=== PATIENT | female | born 1970 | race Caucasian/White ===

== ENCOUNTER 2017-12-30 18:19 | Emergency (ER) | payer MEDICAID, SELFPAY ==
[2017-12-30 18:27] VITALS: BP 141/72; PULSE 93; RESP 18; TEMP 36.8; O2SAT 97; BMI 27.8
[2017-12-30 19:01] LABS: Bedside Glucose 267 mg/dL (70-110)
--- NOTE | 2017-12-30 19:35 | ED.VISSUMM ---
- ER Visit Summary Date of Service: 12/30/17 Chief Complaint: Wound check History of Present Illness: The patient is a 47 F with a history of prior stroke, TIA, diabetes, hypertension, high cholesterol, osteomyelitis, peripheral vascular disease, DVT. Patient had prior right BKA and a femoral artery stent. Patient presents today for wound check. She states that she fell on a joseph piece of metal in late November and had a puncture wound to her left buttock. She developed gangrene and had 4 surgeries. She describes 3 of these surgeries were for wound VAC changes. She was discharged from the hospital in [facility] where she was treated on December 12. Patient still has a CARMEN drain in. She reports increased redness around that site and is concerned it might be getting infected. She otherwise does not feel feverish or ill. Patient had previously been living with her [id number] in [facility] where she was receiving her medical care. She was reportedly kicked out of her [id number][place][id number]'s home and moved to an apartment here in [place]. She does not have follow-up arranged. Physical Examination: Vital signs are unremarkable. Patient is lying on her right side. She is in no acute distress. She is nontoxic appearing. Head and neck examination is unremarkable. Heart is regular rate and rhythm. Lung sounds are clear. Abdomen is soft nontender. Lower extremity examination reveals a CARMEN drain into the left buttock. There is very mild erythema at the site without sign of cellulitis or drainage. This appears more consistent with local irritation than any actual infection. She has sutures intact down the posterior left thigh. These wounds are clean with no sign of infection. Test Results: BGT is 267 Emergency Department Course and Treatment: Patient has her discharge paperwork from the hospital in [place]. She does not have any paperwork that describes what procedures she had done. The discharge paperwork gives her instructions not to sit on the flap. I spoke with Dr. Sales as well as Dr. Mata and attempt to arrange follow-up. Neither of them treat flap repairs. They suggested speaking with Dr. Guadarrama. Dr. Guadarrama is not available to discuss patients tonight as he is only to be paged for his established patients. I advised the patient that she is to call his office tomorrow to have records transferred from [place]. I also left a message with the social security benefits interviewer to the patient to get help with insurance and supplies. At this time there is no sign of infection and antibiotics are not needed. Treatment Plan: [] Disposition: Discharge Impression: Wound check without infection This note was generated with [employer] dictation software. It may contain incorrect words, spelling, and punctuation that were not noted in review of the chart prior to signing ED Disposition - Plan for ED Patient: Disposition: Home or Assisted Living Chief Complaint: Wound Check Instructions: ED Wound Check Post Op No Infec Referrals: Grzegorz Guadarrama MD [STAFF PHYSICIAN] - As soon as possible
[2017-12-30 19:45] VITALS: RESP 18
--- NOTE | 2017-12-31 12:00 | ED.RN ---
Pt called for referral to [facility] due to dr Guadarrama being booked. Dr claire reviewed chart and stated pt coudl F/u at wound center. Pt verbalized understanding and was gievn phone number to call for appt.
--- NOTE | 2018-01-03 12:00 | CASEMGMT ---
Social Work Note VM received this date from Dr. Nunez on Saturday 12/30 regarding pt needing assistance with insurance and PCP. Placed call to pt at [phone]. Pt unavailable and vm recording had no identifiers. Left vm introducing self and requested a return phone call. SW to continue to follow and assist. Mailing out resources this date. Stacy Mcfadden, FINANCIAL SERVICES SPECIALIST, ACQUISITIONS ASSISTANT
== END 2017-12-30 19:45 | disposition home or self-care (01) ==
PROVIDERS: Emergency Provider Emergency Medicine
DX: Z48.01 Encounter for change or removal of surgical wound dressing (principal); E11.9 Type 2 diabetes mellitus without complications; I10 Essential (primary) hypertension; E78.00 Pure hypercholesterolemia, unspecified; I73.9 Peripheral vascular disease, unspecified; K21.9 Gastro-esophageal reflux disease without esophagitis; Z86.718 Personal history of other venous thrombosis and embolism; Z86.73 Personal history of transient ischemic attack (TIA), and cerebral infarction without residual deficits; Z79.4 Long term (current) use of insulin; Z79.82 Long term (current) use of aspirin; Z79.01 Long term (current) use of anticoagulants; Z79.899 Other long term (current) drug therapy; Z72.0 Tobacco use
CPT/HCPCS: 82962; 99282

== ENCOUNTER 2018-01-16 22:37 | Emergency (ER) | payer MEDICAID, SELFPAY ==
[2018-01-16 22:39] VITALS: BP 123/69; PULSE 87; RESP 16; TEMP 36.7; O2SAT 99; BMI 28.5
--- NOTE | 2018-01-16 23:18 | ED.VISSUMM ---
- ER Visit Summary Date of Service: 01/16/18 Chief Complaint: Wound check History of Present Illness: The patient is a 47 F who had multiple surgeries to her left buttock and left posterior thigh in [place] in late November and early December. Patient is now being followed by Dr. Guadarrama. She wanted the wound on the posterior left thigh to be checked. There is a small area of bulging. Patient feels that the stitches are pulling and becoming more painful. She has not had any drainage. She has had no fever. Physical Examination: Vital signs are unremarkable. Patient's lying in bed no acute distress. She is nontoxic appearing. Heart is regular rate and rhythm without murmur. Lung sounds are clear. Lower extremity examination reveals a well-healed incision the left posterior thigh without sign of infection. There is a small area of fullness along the suture line without overlying erythema or fluctuance. I feel this likely represents scar tissue. Test Results: [] Emergency Department Course and Treatment: I explained to the patient and family that I see no sign of infection at this time. Because of the type of flap repair, sutures need to be removed by Dr. Guadarrama. She has an appointment with him in 3 days. Treatment Plan: [] Disposition: Discharge Impression: Wound check This note was generated with [employer] dictation software. It may contain incorrect words, spelling, and punctuation that were not noted in review of the chart prior to signing ED Disposition - Plan for ED Patient: Chief Complaint: Wound Check Referrals: Care Physician,No Primary [Primary Care Provider] -
--- NOTE | 2018-01-16 23:21 | ED.DEP ---
ED Disposition - Plan for ED Patient: Disposition: Home or Assisted Living Chief Complaint: Wound Check Instructions: ED Wound Check Post Op No Infec Referrals: Grzegorz Guadarrama MD [STAFF PHYSICIAN] - Keep Gely appointment
[2018-01-17 00:02] VITALS: PULSE 89; RESP 14; O2SAT 99
== END 2018-01-17 00:08 | disposition home or self-care (01) ==
LOC: ED 23:33
PROVIDERS: Emergency Provider Emergency Medicine
DX: Z48.01 Encounter for change or removal of surgical wound dressing (principal); I10 Essential (primary) hypertension; I73.9 Peripheral vascular disease, unspecified; E78.00 Pure hypercholesterolemia, unspecified; E11.9 Type 2 diabetes mellitus without complications; Z86.73 Personal history of transient ischemic attack (TIA), and cerebral infarction without residual deficits; Z79.4 Long term (current) use of insulin; Z79.82 Long term (current) use of aspirin; Z79.899 Other long term (current) drug therapy; Z72.0 Tobacco use
CPT/HCPCS: 99282

== ENCOUNTER 2018-01-19 11:15 | Outpatient (RCR) | payer MEDICAID, SELFPAY ==
[2018-01-06 15:45] VITALS: BP 116/69; PULSE 85; RESP 18; TEMP 36; BMI 27.0
--- NOTE | 2018-01-06 21:57 | PCM.WC.HP ---
History of Present Illness Date of Service: 01/06/18 Chief Complaint: Traumatic left ischial/perineal pressure sore, Stage IV, s/p inferior gluteal thigh fasciocutaneous flap with compromise and drainage. History of Wound: 47 year old woman presents with a postop wound in her left ischial/perineal area after an inferior gluteal thigh fasciocutaneous flap on 12/04/17. 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 The surgery was done in [place]. She has since moved to [place] and presents today for further evaluation and treatment. She still has her operative drain in place. She states there has been intermittent drainage from her perineal area. She denies any fever. Past Medical History Past Medical History: Chronic Problems Hx of right BKA (Chronic) Chronic pain (Chronic) PVD (peripheral vascular disease) (Chronic) HLD (hyperlipidemia) (Chronic) DM2 (diabetes mellitus, type 2) (Chronic) Benign essential HTN (Chronic) Past Medical History: PAST MEDICAL HISTORY. Diabetes mellitus. Hypertension. Hyperlipidemia. PAD. PVD. Angeles's gangrene left ischial/perineal area. Raynauds. Neuropathy. Anxiety. Anemia. DVT. Surgical History: no surgical history, - - right BKA. left femoral stent placement. 11/20/17 - Incision and drainage left gluteal abscess/fasciitis and extensive debridement left gluteal, perineum, and perirectal Angeles's gangrene. 11/26/17 - Laparoscopic loop sigmoid colostomy and debridement necrotizing fasciitis of perineum with VAC placement. 11/28/17 - Excisional debridement perineal wound from necrotizing fasciitis and VAC placement. 12/04/17 - Debridement of gluteal wound and pulse lavage of wound and inferior gluteal thigh fasciocutaneous flap reconstruction and complex closure of perianal wound (36 mm). Allergies/Adverse Reactions: Allergies fentanyl Allergy (Verified 01/16/18 22:42) Other morphine Adverse Reaction (Verified 01/16/18 22:42) Upset Stomach Home Medications: Ambulatory Orders Medication Instructions Recorded Aspirin [Aspirin, Baby] 81 mg PO DAILY@0800 04/26/16 Atorvastatin Calcium [Lipitor] 40 mg PO QHS 04/26/16 Baclofen 10 mg PO TID 04/26/16 Clopidogrel Bisulfate [Plavix] 75 mg PO DAILY 04/26/16 Duloxetine Hcl [Cymbalta] 60 mg PO BID 04/26/16 Insulin Aspart [Novolog Flexpen] 0 units SC TIDCM 04/26/16 Insulin Detemir [Levemir FlexPen] 40 units SC QHS 04/26/16 Pantoprazole Sodium [Protonix] 40 mg PO DAILY 04/26/16 Pregabalin [Lyrica] 150 mg PO BID 04/26/16 Ranitidine [Zantac] 150 mg PO BID 04/26/16 Clonazepam [Klonopin] 0.5 mg PO BID 07/02/16 Diclofenac Sodium [Diclofenac 50 mg PO BID 12/30/17 Sodium] Hydrocodone/Acetaminophen 1 tab PO TID 12/30/17 [Hydrocodone-Acetamin 7.5-325] Cetirizine HCl [Zyrtec] 10 mg PO DAILY 01/19/18 - Family History Maternal No pertinent history Lives: With Family Smoking Status: Current some day smoker Tobacco Use: Cigarettes Alcohol: None Review of Systems Constitutional: Reports: Fatigue. Denies: Fever, Weakness Eyes: Denies: Cataracts, Pain HEENT: Denies: Nasal Congestion, Sore Throat Cardiovascular: Denies: Chest Pain Respiratory: Reports: - - patient is a smoker.. Denies: Cough, Shortness of Breath Gastrointestinal: Denies: Constipation, Diarrhea, Nausea, Vomiting Genitourinary: Denies: Frequency, Hematuria Musculoskeletal: Denies: Arm Pain, Back Pain, Hand Pain, Leg Pain, Neck Pain Skin: Reports: Wounds - has left ischial/perineal wound at medial aspect of inferior gluteal thigh fasciocutaneous flap. There is extension of the wound both superiorly and inferiorly from her recent surgery. The wound measures 2 x 2 cm. There is undermining along the medial incision pretty much the length of the incision which was measured at 30 cm. Neurological: Denies: Headaches Psychiatric: Denies: Anxiety, Depression Endocrine: Reports: - - has diabetes mellitus.. Denies: Heat/ Cold Intolerance Hematologic/ Lymphatic: Reports: Easy Bruising - patient is on Plavix.. Denies: Hx of blood clot - Physical Exam Vital Signs Temp Pulse Resp BP 96.8 F L 85 18 116/69 01/06/18 15:45 01/06/18 15:45 01/06/18 15:45 01/06/18 15:45 General: Alert, Oriented x3 HEENT: PERRLA, EOMI Oral: Moist Mucosa Neck: Supple Lungs: Clear to auscultation Cardiovascular: Regular rate, Regular Rhythm Abdomen: Soft, Non-Distended Extremities: No clubbing, No cyanosis, No edema, Diminished Peripheral Pulses Skin: Ulcer/ Wound - left medial/perineal wound measuring 2 x 2 cm with inferior tunneling. Wound Measurements and Assessment WC - Nurse 1 - General Ulcer Measurement Start: 01/06/18 15:45 Freq: Status: Active Protocol: Activity Type Activity Date Activity User E-Sign Co-Sign Detail Recorded Client Recorded Date Recorded By Document 01/06/18 15:45 [id number] 01/06/18 16:14 01/06/18 15:45 Wound Center Nurse 1 [Ulcer Assessment] #1 Left medial simona-anal wound -Current Size (cm) - Length 0 -Current Size (cm) - Width 0 -Current Size (cm) - Depth 0 -Total Square Cm 0 -Photo Taken Yes -Epithelialization None Present -Tunneling No -Undermining/Tunneling No -Circular Undermining No -Exudate Amt Large (67-100%) -Exudate Type Serosanguineous -Foul Odor after Cleansing No [Edema Assessment] -Lower Limb Edema Present No WC - Nurse 2 - General Ulcer CM Notes Start: 01/06/18 15:45 Freq: Status: Active Protocol: Activity Type Activity Date Activity User E-Sign Co-Sign Detail Recorded Client Recorded Date Recorded By Document 01/06/18 16:47 [id number] 01/06/18 16:48 01/06/18 16:47 Wound Center Nurse 2 [Procedure/Treatment] #1 Left medial simona-anal wound -Correct Patient No -Correct Side, Site, Position No -Correct Procedure No -Procedure Performed No -Bleeding Controlled with NA [See Physician Procedure note for Specifics] Pain Scale: 0-10 Numeric [Pain] -Is Patient Pain Free? Yes Lymphatic: No Cervical, Supraclavicular, or Inguinal Adenopathy Neurological: Cranial nerves II-XII grossly intact Psych/Mental Status: Normal Affect, Appropriate Debridement Note Post-Debridement Measurements/Treatment WC - Nurse 2 - General Ulcer CM Notes Start: 01/06/18 15:45 Freq: Status: Active Protocol: Activity Type Activity Date Activity User E-Sign Co-Sign Detail Recorded Client Recorded Date Recorded By Document 01/06/18 16:47 [email or web address] [id number] 01/06/18 16:48 SHAYNA 01/06/18 16:47 Wound Center Nurse 2 #1 Left medial simona-anal wound -Correct Patient No -Correct Side, Site, Position No -Correct Procedure No -Procedure Performed No -Bleeding Controlled with NA Pain Scale: 0-10 Numeric Is Patient Pain Free? Yes Wound debrided: #1 Left ischial/perineal. Laterality: Left Wound Grade/Stage: 3. No debridement was completed today - this is a postop flap wound from 11/23 secondary to Angeles's gangrene. Assessment/Plan Active Problems Pressure sore of left ischium, stage 4 (Acute) Type 2 diabetes mellitus with other skin ulcer (Acute) Skin flap infection (Acute) left posterior thigh flap Nonhealing surgical wound (Acute) left ischial/perineal area and posterior thigh. Assessment: 1. 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 3. s/p multiple debridements and VAC placement and inferior gluteal thigh fasciocutaneous flap. 4 Compromised flap with drainage. 5. Diabetes mellitus. Plan: Begin daily dressing changes with Aquacel Silver. The surgical drain was removed today. It has been in for almost 5 weeks. Will remove the sutures in next 1-2 weeks. Her Hgb A1c was 11.0 in November. Will need to improve that before considering any complex flap revision reconstruction. She recently moved from [place] where this surgery was done. She has no primary MD and will try to establish one. Will give her some names to call. A wound culture was obtained today. A positive culture will necessitate antibiotic therapy. Her Prealbumin in November was 16. Encourage nutritional supplementation with protein to help the healing process. She states she was not on bedrest for very long as ambulation was encouraged. I anticipate seroma formation. Operative debridement and revision will be necessary. Postop will apply the VAC. After medical issues have stabilized and nutrition has been maximized, will consider operative flap revision reconstruction based on the size of the wound. Muscle flaps and skin grafts may be necessary. If there is bone involved at the time of the debridement, then a partial ostectomy will be done for osteomyelitis. Before the debridement, will obtain a CT Pelvis and CT Thigh. Will like to obtain the old records before taking her to surgery in the future. Patient was informed of the risks and complications of the procedure including alternatives to surgery. These were discussed with her personally. She voices understanding and wishes to proceed with the current plan of wound care and nutrition and probable antibiotics in preparation for operative debridement to stabilize the wound before proceeding with flap revision reconstruction.
--- NOTE | 2018-01-06 23:34 | HP.PCM_ITS ---
History of Present Illness Date of Service: 01/06/18 Chief Complaint: Traumatic left ischial/perineal pressure sore, Stage IV, s/p inferior gluteal thigh fasciocutaneous flap with compromise and drainage. History of Wound: 47 year old woman presents with a postop wound in her left ischial/perineal area after an inferior gluteal thigh fasciocutaneous flap on . 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 The surgery was done in [place]. She has since moved to [place] and presents today for further evaluation and treatment. She still has her operative drain in place. She states there has been intermittent drainage from her perineal area. She denies any fever. Past Medical History Past Medical History: Chronic Problems Hx of right BKA (Chronic) Chronic pain (Chronic) PVD (peripheral vascular disease) (Chronic) HLD (hyperlipidemia) (Chronic) DM2 (diabetes mellitus, type 2) (Chronic) Benign essential HTN (Chronic) Past Medical History: PAST MEDICAL HISTORY. Diabetes mellitus. Hypertension. Hyperlipidemia. PAD. PVD. Angeles's gangrene left ischial/perineal area. Raynauds. Neuropathy. Anxiety. Anemia. DVT. Surgical History: no surgical history, - - right BKA. left femoral stent placement. 11/20/17 - Incision and drainage left gluteal abscess/fasciitis and extensive debridement left gluteal, perineum, and perirectal Angeles's gangrene. 11/26/17 - Laparoscopic loop sigmoid colostomy and debridement necrotizing fasciitis of perineum with VAC placement. 11/28/17 - Excisional debridement perineal wound from necrotizing fasciitis and VAC placement. - Debridement of gluteal wound and pulse lavage of wound and inferior gluteal thigh fasciocutaneous flap reconstruction and complex closure of perianal wound (36 mm). Allergies/Adverse Reactions: Allergies fentanyl Allergy (Verified 01/16/18 22:42) Other morphine Adverse Reaction (Verified 01/16/18 22:42) Upset Stomach Home Medications: Ambulatory Orders Medication Instructions Recorded Aspirin [Aspirin, Baby] 81 mg PO DAILY@0800 04/26/16 Atorvastatin Calcium [Lipitor] 40 mg PO QHS 04/26/16 Baclofen 10 mg PO TID 04/26/16 Clopidogrel Bisulfate [Plavix] 75 mg PO DAILY 04/26/16 Duloxetine Hcl [Cymbalta] 60 mg PO BID 04/26/16 Insulin Aspart [Novolog Flexpen] 0 units SC TIDCM 04/26/16 Insulin Detemir [Levemir FlexPen] 40 units SC QHS 04/26/16 Pantoprazole Sodium [Protonix] 40 mg PO DAILY 04/26/16 Pregabalin [Lyrica] 150 mg PO BID 04/26/16 Ranitidine [Zantac] 150 mg PO BID 04/26/16 Clonazepam [Klonopin] 0.5 mg PO BID 07/02/16 Diclofenac Sodium [Diclofenac 50 mg PO BID 12/30/17 Sodium] Hydrocodone/Acetaminophen 1 tab PO TID 12/30/17 [Hydrocodone-Acetamin 7.5-325] Cetirizine HCl [Zyrtec] 10 mg PO DAILY 01/19/18 - Family History Maternal No pertinent history Lives: With Family Smoking Status: Current some day smoker Tobacco Use: Cigarettes Alcohol: None Review of Systems Constitutional: Reports: Fatigue. Denies: Fever, Weakness Eyes: Denies: Cataracts, Pain HEENT: Denies: Nasal Congestion, Sore Throat Cardiovascular: Denies: Chest Pain Respiratory: Reports: - - patient is a smoker.. Denies: Cough, Shortness of Breath Gastrointestinal: Denies: Constipation, Diarrhea, Nausea, Vomiting Genitourinary: Denies: Frequency, Hematuria Musculoskeletal: Denies: Arm Pain, Back Pain, Hand Pain, Leg Pain, Neck Pain Skin: Reports: Wounds - has left ischial/perineal wound at medial aspect of inferior gluteal thigh fasciocutaneous flap. There is extension of the wound both superiorly and inferiorly from her recent surgery. The wound measures 2 x 2 cm. There is undermining along the medial incision pretty much the length of the incision which was measured at 30 cm. Neurological: Denies: Headaches Psychiatric: Denies: Anxiety, Depression Endocrine: Reports: - - has diabetes mellitus.. Denies: Heat/ Cold Intolerance Hematologic/ Lymphatic: Reports: Easy Bruising - patient is on Plavix.. Denies : Hx of blood clot - Physical Exam Vital Signs Temp Pulse Resp BP 96.8 F L 85 18 116/69 01/06/18 15:45 01/06/18 15:45 01/06/18 15:45 01/06/18 15:45 General: Alert, Oriented x3 HEENT: PERRLA, EOMI Oral: Moist Mucosa Neck: Supple Lungs: Clear to auscultation Cardiovascular: Regular rate, Regular Rhythm Abdomen: Soft, Non-Distended Extremities: No clubbing, No cyanosis, No edema, Diminished Peripheral Pulses Skin: Ulcer/ Wound - left medial/perineal wound measuring 2 x 2 cm with inferior tunneling. Wound Measurements and Assessment WC - Nurse 1 - General Ulcer Measurement Start: 01/06/18 15:45 Freq: Status: Active Protocol: Activity Type Activity Date Activity User E-Sign Co-Sign Detail Recorded Client Recorded Date Recorded By Document 01/06/18 15:45 [id number] 01/06/18 16:14 01/06/18 15:45 Wound Center Nurse 1 [Ulcer Assessment] #1 Left medial simona-anal wound -Current Size (cm) - Length 0 -Current Size (cm) - Width 0 -Current Size (cm) - Depth 0 -Total Square Cm 0 -Photo Taken Yes -Epithelialization None Present -Tunneling No -Undermining/Tunneling No -Circular Undermining No -Exudate Amt Large (67-100%) -Exudate Type Serosanguineous -Foul Odor after Cleansing No [Edema Assessment] -Lower Limb Edema Present No WC - Nurse 2 - General Ulcer CM Notes Start: 01/06/18 15:45 Freq: Status: Active Protocol: Activity Type Activity Date Activity User E-Sign Co-Sign Detail Recorded Client Recorded Date Recorded By Document 01/06/18 16:47 [id number] 01/06/18 16:48 01/06/18 16:47 Wound Center Nurse 2 [Procedure/Treatment] #1 Left medial simona-anal wound -Correct Patient No -Correct Side, Site, Position No -Correct Procedure No -Procedure Performed No -Bleeding Controlled with NA [See Physician Procedure note for Specifics] Pain Scale: 0-10 Numeric [Pain] -Is Patient Pain Free? Yes Lymphatic: No Cervical, Supraclavicular, or Inguinal Adenopathy Neurological: Cranial nerves II-XII grossly intact Psych/Mental Status: Normal Affect, Appropriate Debridement Note Post-Debridement Measurements/Treatment WC - Nurse 2 - General Ulcer CM Notes Start: 01/06/18 15:45 Freq: Status: Active Protocol: Activity Type Activity Date Activity User E-Sign Co-Sign Detail Recorded Client Recorded Date Recorded By Document 01/06/18 16:47 [email or web address] [id number] 01/06/18 16:48 [email or web address] 01/06/18 16:47 Wound Center Nurse 2 #1 Left medial simona-anal wound -Correct Patient No -Correct Side, Site, Position No -Correct Procedure No -Procedure Performed No -Bleeding Controlled with NA Pain Scale: 0-10 Numeric Is Patient Pain Free? Yes Wound debrided: #1 Left ischial/perineal. Laterality: Left Wound Grade/Stage: 3. No debridement was completed today - this is a postop flap wound from 11/23 secondary to Angeles's gangrene. Assessment/Plan Active Problems Pressure sore of left ischium, stage 4 (Acute) Type 2 diabetes mellitus with other skin ulcer (Acute) Skin flap infection (Acute) left posterior thigh flap Nonhealing surgical wound (Acute) left ischial/perineal area and posterior thigh. Assessment: 1. 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 3. s/p multiple debridements and VAC placement and inferior gluteal thigh fasciocutaneous flap. 4 Compromised flap with drainage. 5. Diabetes mellitus. Plan: Begin daily dressing changes with Aquacel Silver. The surgical drain was removed today. It has been in for almost 5 weeks. Will remove the sutures in next 1-2 weeks. Her Hgb A1c was 11.0 in November. Will need to improve that before considering any complex flap revision reconstruction. She recently moved from [place] where this surgery was done. She has no primary MD and will try to establish one. Will give her some names to call. A wound culture was obtained today. A positive culture will necessitate antibiotic therapy. Her Prealbumin in November was 16. Encourage nutritional supplementation with protein to help the healing process. She states she was not on bedrest for very long as ambulation was encouraged. I anticipate seroma formation. Operative debridement and revision will be necessary. Postop will apply the VAC. After medical issues have stabilized and nutrition has been maximized, will consider operative flap revision reconstruction based on the size of the wound. Muscle flaps and skin grafts may be necessary. If there is bone involved at the time of the debridement, then a partial ostectomy will be done for osteomyelitis. Before the debridement, will obtain a CT Pelvis and CT Thigh. Will like to obtain the old records before taking her to surgery in the future. Patient was informed of the risks and complications of the procedure including alternatives to surgery. These were discussed with her personally. She voices understanding and wishes to proceed with the current plan of wound care and nutrition and probable antibiotics in preparation for operative debridement to stabilize the wound before proceeding with flap revision reconstruction.
[2018-01-19 11:33] VITALS: BP 125/84; PULSE 90; RESP 16; TEMP 37; BMI 27.0
--- NOTE | 2018-01-19 17:01 | PN.PCM_ITS ---
Type of Wound Date of Service: 01/19/18 Chief Complaint: Traumatic left ischial/perineal pressure sore, Stage IV, s/p inferior gluteal thigh fasciocutaneous flap with compromise and drainage. History of Wound: 47 year old woman comes in for further evaluation of her postop wound in her left ischial/perineal area after an inferior gluteal thigh fasciocutaneous flap on 12/04/17. 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 The surgery was done in [place]. She has since moved to [place] and presents today for further evaluation and treatment. Her wound culture from 01/06/18 showed Staphylococcus aureus and Anaerobes. She was started on Doxycycline and Flagyl will be added. She states there has been intermittent drainage from her perineal area and she has been changing the silver dressings more than once per day. She denies any fever. Progress of Wound: The left ischial/perineal wound is stable but there is some fluctuance noted on the inferior aspect of the incision on her posterior thigh. - Physical Exam Vital Signs Temp Pulse Resp BP 98.6 F 90 16 125/84 H 01/19/18 11:33 01/19/18 11:33 01/19/18 11:33 01/19/18 11:33 General: Alert, Oriented x3 HEENT: PERRLA, EOMI Neck: Supple Lungs: Clear to auscultation Cardiovascular: Regular rate, Regular Rhythm Abdomen: Soft, Non-Distended Extremities: No clubbing, No cyanosis, Edema - mild edema in left lower extremity. Skin: Ulcer/ Wound - left ischial/perineal wound is stable. However there are new wounds on the inferior incision line on the posterior thigh with exudative drainage. Wound Measurements and Assessment WC - Nurse 1 - General Ulcer Measurement Start: 01/06/18 15:45 Freq: Status: Active Protocol: Activity Type Activity Date Activity User E-Sign Co-Sign Detail Recorded Client Recorded Date Recorded By Document 01/19/18 11:33 [facility] [id number] 01/19/18 11:47 [facility] 01/19/18 11:33 Wound Center Nurse 1 [Ulcer Assessment] #1 Left medial simona-anal wound -Combined with other wound No -Current Size (cm) - Length 1.1 -Current Size (cm) - Width 1 -Current Size (cm) - Depth 1.4 -Total Square Cm 1.1 -Photo Taken No -Epithelialization None Present -Tunneling Yes -Tunneling Position (O'clock) 5 -Tunneling Distance (cm) 5 -Tunneling Position #2 (O'clock) 11 -Tunneling Distance #2 (cm) 3 -Undermining/Tunneling No -Circular Undermining No -Exudate Amt Large (67-100%) -Exudate Type Serous -Wound Margin Distinct, Outline Attached -Granulation Amt Large (67-100%) -Granulation Quality [place] -Slough/Fibrin No -Necrosis Amt None Present (0 %) -Texture (Simona-wound Skin Appearance) Scarring -Moisture (Simona-wound Skin Appearance Assessed ) -Color (Simona-wound Skin Appearance) Assessed -Temperature (Simona-wound Skin No Abnormality Appearance) (Pt Warm) -Tenderness on Palpation (Simona-wound No Skin Appearance) -Ulcer Cleansing Rinsed/ Irrigated with Saline -Foul Odor after Cleansing No -Anesthetic Used 4% Lidocaine Solution - Nurse 2 - General Ulcer CM Notes Start: 01/06/18 15:45 Freq: Status: Active Protocol: Activity Type Activity Date Activity User E-Sign Co-Sign Detail Recorded Client Recorded Date Recorded By Document 01/19/18 12:11 [id number] 01/19/18 12:13 01/19/18 12:11 Wound Center Nurse 2 [Procedure/Treatment] -Correct Patient No -Correct Side, Site, Position No -Correct Procedure No -Procedure Performed No -Bleeding Controlled with NA [See Physician Procedure note for Specifics] Pain Scale: 0-10 Numeric [Pain] -Is Patient Pain Free? Yes Lymphatic: No Cervical, Supraclavicular, or Inguinal Adenopathy Neurological: Cranial nerves II-XII grossly intact Psych/Mental Status: Normal Affect, Appropriate Debridement Note Post-Debridement Measurements/Treatment - Nurse 2 - General Ulcer CM Notes Start: 01/06/18 15:45 Freq: Status: Active Protocol: Activity Type Activity Date Activity User E-Sign Co-Sign Detail Recorded Client Recorded Date Recorded By Document 01/06/18 16:47 [id number] 01/06/18 16:48 Document 01/19/18 12:11 [id number] 01/19/18 12:13 01/06/18 01/19/18 16:47 12:11 Wound Center Nurse 2 #1 Left medial simona-anal wound -Correct Patient No No -Correct Side, Site, Position No No -Correct Procedure No No -Procedure Performed No No -Bleeding Controlled with NA NA Pain Scale: 0-10 Numeric Is Patient Pain Free? Yes Yes Wound debrided: #1 Left ischial/perineal area with inferior thigh extension. Laterality: Left Wound Grade/Stage: 3. No debridement was completed today - The sutures were removed today. There was some fluctuance in an area of the inferior incision on the posterior thigh. Probing with a cotton tipped applicator released some thickened exudate and serosanguinous fluid. No odor. With the previous culture showing Staphylococcus aureus, admission was recommended for more aggressive wound care and IV antibiotics. Assessment/Plan Active Problems Pressure sore of left ischium, stage 4 (Acute) Type 2 diabetes mellitus with other skin ulcer (Acute) Skin flap infection (Acute) left posterior thigh flap Nonhealing surgical wound (Acute) left ischial/perineal area and posterior thigh. Assessment: 1. Traumatic left ischial/perineal pressure sore infection, Stage IV. 2. Angeles's gangrene left ischial/perineal area. 3. s/p multiple debridements and VAC placement and inferior gluteal thigh fasciocutaneous flap. 4 Compromised flap medially and inferiorly with infected drainage. 5. Diabetes mellitus. Plan: The sutures were removed today. The wound shows instability with multiple openings. Recommend admission to the hospital for more aggressive wound care and to start IV antibiotics. Previous culture showed Staphylococcus aureus and Anaerobes. Will start Vancomycin and Zosyn. Continue dressing changes with Aquacel Silver. Her Hgb A1c was 11.0 in November. Will need to improve that before considering any complex flap revision reconstruction. She recently moved from [place] where this surgery was done. She has no primary MD and will try to establish one. Will give her some names to call. Her Prealbumin in November was 16. Encourage nutritional supplementation with protein to help the healing process. Will obtain a CT Pelvis and CT Thigh to lookf for further evidence of infection. Operative debridement may be necessary. Postop will apply the VAC. After medical issues have stabilized and nutrition has been maximized, will consider operative flap revision reconstruction based on the size of the wound. Muscle flaps and skin grafts may be necessary. If there is bone involved at the time of the debridement, then a partial ostectomy will be done for osteomyelitis. Patient was informed of the risks and complications of the procedure including alternatives to surgery. These were discussed with her personally. She voices understanding and wishes to proceed with the current plan of wound care and nutrition and probable antibiotics in preparation for possible operative debridement to stabilize the wound before proceeding with flap revision reconstruction.
== END 2018-02-05 23:59 ==
LOC: WC 11:15
PROVIDERS: Visit Provider Surgery
DX: E11.622 Type 2 diabetes mellitus with other skin ulcer (principal); L89.224 Pressure ulcer of left hip, stage 4; T81.4XXA Infection following a procedure, initial encounter; B99.8 Other infectious disease; Y83.8 Other surgical procedures as the cause of abnormal reaction of the patient, or of later complication, without mention of misadventure at the time of the procedure; T86.828 Other complications of skin graft (allograft) (autograft); E11.51 Type 2 diabetes mellitus with diabetic peripheral angiopathy without gangrene; I10 Essential (primary) hypertension; E78.5 Hyperlipidemia, unspecified; E11.40 Type 2 diabetes mellitus with diabetic neuropathy, unspecified; Z79.899 Other long term (current) drug therapy; Z79.02 Long term (current) use of antithrombotics/antiplatelets; Z79.82 Long term (current) use of aspirin; Z79.4 Long term (current) use of insulin; F17.210 Nicotine dependence, cigarettes, uncomplicated
CPT/HCPCS: 87070; 87075; 87077; 87186; 87205; 99213; G0463

== ENCOUNTER 2018-01-19 15:45 | Inpatient (IN) | payer MEDICAID, SELFPAY ==
[2018-01-19 15:55] VITALS: BMI 27.2; BMI 27.3
[2018-01-19 15:56] VITALS: BP 118/69; PULSE 73; RESP 18; TEMP 36.8; O2SAT 100
[2018-01-19 16:37] VITALS: PULSE 70
[2018-01-19 17:08] VITALS: BMI 27.3
--- NOTE | 2018-01-19 19:16 | CT_ITS ---
CT Pelvis and left lower extremity W/O Contrast INDICATION: ABSCESS,POST-OP INFECTED WOUND TO LT ISCHIAL/PERINEAL AND POSTERIOR THIGH,SCHEDULING FOR DEBRIDEMENTHX:DM,PVD,OSTEOMYELITIS COMPARISON: None TECHNIQUE: Noncontrast axial CT examination of the pelvis and left leg from the hip to the knee without contrast. Coronal and sagittal reformatted images. Radiation dose optimization technique applied. FINDINGS: Arteriosclerotic disease is present and bilateral common iliac artery stent grafts are present. Evaluation of the vascular structures is markedly limited and evaluation of the soft tissues is somewhat limited due to the lack of IV contrast. A left lower quadrant colostomy is noted. There is evidence of scarring in the left upper thigh with fat stranding of the left perirectal fat and the fat of the left medial lower buttocks. If this inflammatory process extends or communicates with the rectum is not clearly seen. An air-containing fistulous tract to the rectum or vaginal canal cannot be identified with certainty. There is a linear scar in the posterior medial aspect of the left upper thigh extending to the level just above the knee. 2 surgical clips are seen in the midportion of the scar. Air inclusions are seen along the scar in the subcutaneous fat in the upper thigh and extending deep to the fascia distally. A significantly large distinct drainable fluid collection is not identified with certainty, however, multiple small air collections are seen as detailed above. Subcutaneous fat stranding is most severe at the left lower buttocks and extends to the gluteal musculature. No evidence of bony erosions to raise concern for osteomyelitis at this time. Consider nuclear medicine bone scan for confirmation. CT/Pelvis without IV Contrast IMPRESSION: Air inclusions along the scar and in the adjacent subcutaneous fat extending from the left lower buttocks along the left posterior medial thigh to the level just above the knee as detailed above. Multiple small air collections are seen and subcutaneous fat stranding along the scar, most severe at the left medial buttocks, with the inflammation/infection extends beyond the fascia into the left gluteal musculature. Additional small focus of extension deep to the fascia is noted just above the knee. at 2042 Reported and signed by: Kathie Hernandez MD Electronically Signed: Kathie Hernandez MD at 20:41 EDT Tel , Service support ,
--- NOTE | 2018-01-19 19:16 | CT_ITS ---
CT Pelvis and left lower extremity W/O Contrast INDICATION: ABSCESS,POST-OP INFECTED WOUND TO LT ISCHIAL/PERINEAL AND POSTERIOR THIGH,SCHEDULING FOR DEBRIDEMENTHX:DM,PVD,OSTEOMYELITIS COMPARISON: None TECHNIQUE: Noncontrast axial CT examination of the pelvis and left leg from the hip to the knee without contrast. Coronal and sagittal reformatted images. Radiation dose optimization technique applied. FINDINGS: Arteriosclerotic disease is present and bilateral common iliac artery stent grafts are present. Evaluation of the vascular structures is markedly limited and evaluation of the soft tissues is somewhat limited due to the lack of IV contrast. A left lower quadrant colostomy is noted. There is evidence of scarring in the left upper thigh with fat stranding of the left perirectal fat and the fat of the left medial lower buttocks. If this inflammatory process extends or communicates with the rectum is not clearly seen. An air-containing fistulous tract to the rectum or vaginal canal cannot be identified with certainty. There is a linear scar in the posterior medial aspect of the left upper thigh extending to the level just above the knee. 2 surgical clips are seen in the midportion of the scar. Air inclusions are seen along the scar in the subcutaneous fat in the upper thigh and extending deep to the fascia distally. A significantly large distinct drainable fluid collection is not identified with certainty, however, multiple small air collections are seen as detailed above. Subcutaneous fat stranding is most severe at the left lower buttocks and extends to the gluteal musculature. No evidence of bony erosions to raise concern for osteomyelitis at this time. Consider nuclear medicine bone scan for confirmation. CT/Extremity Lower without Contra IMPRESSION: Air inclusions along the scar and in the adjacent subcutaneous fat extending from the left lower buttocks along the left posterior medial thigh to the level just above the knee as detailed above. Multiple small air collections are seen and subcutaneous fat stranding along the scar, most severe at the left medial buttocks, with the inflammation/infection extends beyond the fascia into the left gluteal musculature. Additional small focus of extension deep to the fascia is noted just above the knee. at 2042 Reported and signed by: Kathie Hernandez MD Electronically Signed: Kathie Hernandez MD at 20:40 EDT Tel , Service support ,
--- NOTE | 2018-01-19 19:49 | PCM.CONS.GEN ---
Problem List (1) Pressure sore of left ischium, stage 4 Status: Chronic (2) Type 2 diabetes mellitus with other skin ulcer Status: Chronic (3) Skin flap infection Status: Acute Comment: left posterior thigh flap (4) Nonhealing surgical wound Status: Chronic Comment: left ischial/perineal area and posterior thigh. (5) Hx of right BKA Status: Chronic (6) Chronic pain Status: Chronic (7) PVD (peripheral vascular disease) Status: Chronic (8) HLD (hyperlipidemia) Status: Chronic (9) DM2 (diabetes mellitus, type 2) Status: Chronic (10) Benign essential HTN Status: Chronic Reason for Consult Date of Consultation: 01/19/18 Reason for Consultation: Requested by Dr. Guadarrama for medical management History of Present Illness: The patient is a 47 year old F who in December fell on a joseph microwave. Patient felt sick for a week which she thought was the flu only to find out that she had gangrene and required multiple debridements and wound VAC. Patient has since moved up here and has seen Dr. martinez. She had a culture performed on January 06 that showed staph aureus and Prevotella oralis. She did receive an antibiotic but the wounds have continued to seep. Patient has had some abscesses. Patient was admitted for further surgical debridement. Patient is scheduled for CAT scan this evening for further clarification. [] Past Medical History Past Medical History (Chronic Problems): Chronic Problems Pressure sore of left ischium, stage 4 (Chronic) Type 2 diabetes mellitus with other skin ulcer (Chronic) Nonhealing surgical wound (Chronic) left ischial/perineal area and posterior thigh. Hx of right BKA (Chronic) Chronic pain (Chronic) PVD (peripheral vascular disease) (Chronic) HLD (hyperlipidemia) (Chronic) DM2 (diabetes mellitus, type 2) (Chronic) Benign essential HTN (Chronic) Allergies fentanyl Allergy (Verified 01/16/18 22:42) Other morphine Adverse Reaction (Verified 01/16/18 22:42) Upset Stomach Home Medications: Ambulatory Orders Medication Instructions Recorded Aspirin [Aspirin, Baby] 81 mg PO DAILY@0800 04/26/16 Atorvastatin Calcium [Lipitor] 40 mg PO QHS 04/26/16 Baclofen 10 mg PO TID 04/26/16 Clopidogrel Bisulfate [Plavix] 75 mg PO DAILY 08/19/16 Duloxetine Hcl [Cymbalta] 60 mg PO BID 04/26/16 Insulin Aspart [Novolog Flexpen] 0 units SC TIDCM 04/26/16 Insulin Detemir [Levemir FlexPen] 40 units SC QHS 04/26/16 Pantoprazole Sodium [Protonix] 40 mg PO DAILY 04/26/16 Pregabalin [Lyrica] 150 mg PO BID 04/26/16 Ranitidine [Zantac] 150 mg PO BID 04/26/16 Clonazepam [Klonopin] 0.5 mg PO BID 07/02/16 Diclofenac Sodium [Diclofenac 50 mg PO BID 12/30/17 Sodium] Hydrocodone/Acetaminophen 1 tab PO TID 12/30/17 [Hydrocodone-Acetamin 7.5-325] Cetirizine HCl [Zyrtec] 10 mg PO DAILY 01/19/18 Surgical History: - - right BKA. Multiple debridements to left leg wound. Diverting colostomy. Psychiatric History: No pertinent psych hx Lives: Spouse/ Significant Other Smoking Status: Heavy Smoker (>10/day) Tobacco Use: Cigarettes Alcohol: None Drugs: None - *Family History Maternal History Items: Diabetes Review of Systems Constitutional: Reports: Chills. Denies: Fever, Weight Change Eyes: Denies: Blurred vision, Double vision HEENT: Denies: Head Aches, Sinus Congestion, Sinus Drainage Cardiovascular: Denies: Chest Pain, Palpitations Respiratory: Denies: Cough, Shortness of breath at rest, Sputum production Gastrointestinal: Denies: Abdominal Pain, Nausea, Vomiting Genitourinary: Denies: Dysuria Gynecological: Denies: Breast symptoms, Sexual concerns Musculoskeletal: Reports: Leg Pain. Denies: Joint Pain, Joint Tenderness Skin: Denies: Dryness, Lesions Neurological: Denies: Numbness, Tingling, Focal weakness Psychiatric: Denies: Anxiety, Depression Hematologic/ Lymphatic: Denies: Easy Bruising, Easy Bleeding Patient Problems: Active and Suspected Problems Skin flap infection (Acute) left posterior thigh flap - Physical Exam General: Alert, Cooperative, No apparent distress, - - Appears older than stated age HEENT: Atraumatic, Normocephalic Oral: Moist Mucosa, No Gingival or Mucosal Lesions/ Ulcerations Neck: No Nodes, Thyroid Normal Size and Texture Lungs: Clear to auscultation, Normal air movement, No rhonchi, No wheeze Cardiovascular: Regular rate, Regular Rhythm, Normal S1, Normal S2, No murmurs Abdomen: Bowel Sounds Present, Soft, Non Tender, Non-Distended, - - Colostomy in place Extremities: No edema, - - Right BKA. Stump site appears clean and intact. Left leg bandaged, did not remove. Psych/Mental Status: Appropriate, Flat Affect Vital Signs Temp Pulse Resp BP Pulse Ox 36.8 C 70 18 118/69 100 01/19/18 15:56 01/19/18 16:37 01/19/18 15:56 01/19/18 15:56 01/19/18 15:56 Oxygen Delivery Method Room Air Weight: 81.374 kg Body Mass Index (BMI) 27.2 Finger Stick Blood Glucose 267 Assessment/Plan Active and Suspected Problems Skin flap infection (Acute) left posterior thigh flap 1. Skin flap infection Vancomycin and Zosyn are ordered CAT scan pending Further debridement on the . Consider infectious disease consultation depending on the breath of surgery and culture results. 2. Diabetes mellitus type 2 Continue with Levemir. I will add sliding scale NovoLog 3. Peripheral vascular disease Continue with aspirin, atorvastatin, Plavix 4. DVT prophylaxis: Will defer to the primary service. Thank you for the consultation. The hospitalist service will follow along during the course of her hospitalization. Code Visit Inpatient E&M: 73451 Init Hosp L2
--- NOTE | 2018-01-19 19:57 | CON.PCM_ITS ---
Problem List (1) Pressure sore of left ischium, stage 4 Status: Chronic (2) Type 2 diabetes mellitus with other skin ulcer Status: Chronic (3) Skin flap infection Status: Acute Comment: left posterior thigh flap (4) Nonhealing surgical wound Status: Chronic Comment: left ischial/perineal area and posterior thigh. (5) Hx of right BKA Status: Chronic (6) Chronic pain Status: Chronic (7) PVD (peripheral vascular disease) Status: Chronic (8) HLD (hyperlipidemia) Status: Chronic (9) DM2 (diabetes mellitus, type 2) Status: Chronic (10) Benign essential HTN Status: Chronic Reason for Consult Date of Consultation: 01/19/18 Reason for Consultation: Requested by Dr. Guadarrama for medical management History of Present Illness: The patient is a 47 year old F who in December fell on a joseph microwave. Patient felt sick for a week which she thought was the flu only to find out that she had gangrene and required multiple debridements and wound VAC. Patient has since moved up here and has seen Dr. martinez. She had a culture performed on January 06 that showed staph aureus and Prevotella oralis. She did receive an antibiotic but the wounds have continued to seep. Patient has had some abscesses. Patient was admitted for further surgical debridement. Patient is scheduled for CAT scan this evening for further clarification. [] Past Medical History Past Medical History (Chronic Problems): Chronic Problems Pressure sore of left ischium, stage 4 (Chronic) Type 2 diabetes mellitus with other skin ulcer (Chronic) Nonhealing surgical wound (Chronic) left ischial/perineal area and posterior thigh. Hx of right BKA (Chronic) Chronic pain (Chronic) PVD (peripheral vascular disease) (Chronic) HLD (hyperlipidemia) (Chronic) DM2 (diabetes mellitus, type 2) (Chronic) Benign essential HTN (Chronic) Allergies fentanyl Allergy (Verified 01/16/18 22:42) Other morphine Adverse Reaction (Verified 01/16/18 22:42) Upset Stomach Home Medications: Ambulatory Orders Medication Instructions Recorded Aspirin [Aspirin, Baby] 81 mg PO DAILY@0800 04/26/16 Atorvastatin Calcium [Lipitor] 40 mg PO QHS 04/26/16 Baclofen 10 mg PO TID 04/26/16 Clopidogrel Bisulfate [Plavix] 75 mg PO DAILY 08/19/16 Duloxetine Hcl [Cymbalta] 60 mg PO BID 04/26/16 Insulin Aspart [Novolog Flexpen] 0 units SC TIDCM 04/26/16 Insulin Detemir [Levemir FlexPen] 40 units SC QHS 04/26/16 Pantoprazole Sodium [Protonix] 40 mg PO DAILY 04/26/16 Pregabalin [Lyrica] 150 mg PO BID 04/26/16 Ranitidine [Zantac] 150 mg PO BID 04/26/16 Clonazepam [Klonopin] 0.5 mg PO BID 07/02/16 Diclofenac Sodium [Diclofenac 50 mg PO BID 12/30/17 Sodium] Hydrocodone/Acetaminophen 1 tab PO TID 12/30/17 [Hydrocodone-Acetamin 7.5-325] Cetirizine HCl [Zyrtec] 10 mg PO DAILY 01/19/18 Surgical History: - - right BKA. Multiple debridements to left leg wound. Diverting colostomy. Psychiatric History: No pertinent psych hx Lives: Spouse/ Significant Other Smoking Status: Heavy Smoker (>10/day) Tobacco Use: Cigarettes Alcohol: None Drugs: None - *Family History Maternal History Items: Diabetes Review of Systems Constitutional: Reports: Chills. Denies: Fever, Weight Change Eyes: Denies: Blurred vision, Double vision HEENT: Denies: Head Aches, Sinus Congestion, Sinus Drainage Cardiovascular: Denies: Chest Pain, Palpitations Respiratory: Denies: Cough, Shortness of breath at rest, Sputum production Gastrointestinal: Denies: Abdominal Pain, Nausea, Vomiting Genitourinary: Denies: Dysuria Gynecological: Denies: Breast symptoms, Sexual concerns Musculoskeletal: Reports: Leg Pain. Denies: Joint Pain, Joint Tenderness Skin: Denies: Dryness, Lesions Neurological: Denies: Numbness, Tingling, Focal weakness Psychiatric: Denies: Anxiety, Depression Hematologic/ Lymphatic: Denies: Easy Bruising, Easy Bleeding Patient Problems: Active and Suspected Problems Skin flap infection (Acute) left posterior thigh flap - Physical Exam General: Alert, Cooperative, No apparent distress, - - Appears older than stated age HEENT: Atraumatic, Normocephalic Oral: Moist Mucosa, No Gingival or Mucosal Lesions/ Ulcerations Neck: No Nodes, Thyroid Normal Size and Texture Lungs: Clear to auscultation, Normal air movement, No rhonchi, No wheeze Cardiovascular: Regular rate, Regular Rhythm, Normal S1, Normal S2, No murmurs Abdomen: Bowel Sounds Present, Soft, Non Tender, Non-Distended, - - Colostomy in place Extremities: No edema, - - Right BKA. Stump site appears clean and intact. Left leg bandaged, did not remove. Psych/Mental Status: Appropriate, Flat Affect Vital Signs Temp Pulse Resp BP Pulse Ox 36.8 C 70 18 118/69 100 01/19/18 15:56 01/19/18 16:37 01/19/18 15:56 01/19/18 15:56 01/19/18 15:56 Oxygen Delivery Method Room Air Weight: 81.374 kg Body Mass Index (BMI) 27.2 Finger Stick Blood Glucose 267 Assessment/Plan Active and Suspected Problems Skin flap infection (Acute) left posterior thigh flap 1. Skin flap infection * Vancomycin and Zosyn are ordered * CAT scan pending * Further debridement on the . * Consider infectious disease consultation depending on the breath of surgery and culture results. 2. Diabetes mellitus type 2 * Continue with Levemir. I will add sliding scale NovoLog 3. Peripheral vascular disease * Continue with aspirin, atorvastatin, Plavix 4. DVT prophylaxis: Will defer to the primary service. Thank you for the consultation. The hospitalist service will follow along during the course of her hospitalization. Code Visit Inpatient E&M: 65732 Init Hosp L2
[2018-01-19] MEDS: oxyCODONE 5 MG Tablet 10 MG PO (20:24)
[2018-01-19] MEDS: Lactated Ringers 1,000 ML 60 ML IV (20:25)
[2018-01-19 20:34] LABS: Hematocrit 37.4 % (37-47); Hemoglobin 12.2 g/dl (12.0-15.0); Mean Corp Hgb Conc 32.6 g/gl (32-36); Mean Corpuscular Hgb 29.8 pg (27.0-32.0); Mean Corpuscular Volume 91.4 fL (81-99); Mean Platelet Vol. 9.4 fl (6.2-12.0); Platelet Count 313 K/mm3 (150-450); RBC Distribution Width CV 13.1 % (11.6-14.6); Red Blood Count 4.09 M/mm3 (4.2-5.4); White Blood Count 5.2 K/mm3 (4.4-11.0)
[2018-01-19 20:35] LABS: Scan Indicated on CBC? Y/N NO
[2018-01-19 20:58] LABS: ALB/GLOB Ratio 0.7 RATIO (0.9-2.4); AST(SGOT) 11 U/L (15-37); Alanine Aminotransfer ALT/SGPT 14 U/L (13-56); Albumin, Serum 2.8 g/dL (3.2-5.0); Alkaline Phosphatase 77 U/L (45-117); Anion Gap 6 (5-15); BUN 13 mg/dL (7-18); CRP < 2.90 mg/L (0.0-3.0); Calcium,Total 8.2 mg/dL (8.5-10.1); Chloride 110 mmol/L (98-107); Creatinine, Serum 0.65 mg/dL (0.55-1.02); EST Glomerular Filtration Rate 104 mL/min (>60); Est Glom Filt Rate - Afr Amer 126 mL/min (>60); Estimated Creatinine Clearance 110.25 ml/min; Globulin 4.1 g/dL (2.2-4.2); Glucose 228 mg/dL (74-106); Hemoglobin A1c 7.9 % (4.2-6.3); Potassium 3.8 mmol/L (3.5-5.1); Prealbumin 20.3 mg/dL (20.0-40.0); Protein, Total 6.9 g/dL (6.4-8.2); Sodium Level 142 mmol/L (136-145)
[2018-01-19 20:59] LABS: Erythrocyte Sedimentation Rate 23 mm/hr (0-20)
[2018-01-19 21:20] VITALS: BP 106/70; PULSE 72; RESP 16; TEMP 36.6; O2SAT 95
[2018-01-19] MEDS: Famotidine 20 MG Tablet PO (22:38)
[2018-01-19] MEDS: Atorvastatin Calcium 40 MG Tablet PO (22:38)
[2018-01-19] MEDS: Baclofen 10 MG Tablet PO (22:38)
[2018-01-19] MEDS: HYDROmorphone 0.5 MG/0.5 ML SYRINGE IV (22:39)
[2018-01-19] MEDS: 0.9% NaCl Peripheral Flush Adult/Peds IV (22:39)
[2018-01-19] MEDS: Piperacil/Tazobactam 3.375 GM/50 ML ML IV (22:39)
[2018-01-19] MEDS: clonazePAM 0.5 MG Tablet PO (22:39)
[2018-01-19] MEDS: DULoxetine Hcl 60 MG Capsule PO (22:39)
[2018-01-19] MEDS: Pregabalin 75 MG Capsule 150 MG PO (22:39)
[2018-01-19] MEDS: 0.9% NaCl IVPB Med Flush (250 mL) 15 ML IV (22:39)
[2018-01-19] MEDS: Docusate Sodium 100 MG Capsule PO (22:39)
[2018-01-19 22:49] LABS: M R Staph aureus DNA By PCR Negative (Negative); Probe Check PASS; Specimen Processing Control PASS; Staph aureus DNA By PCR NEGATIVE (Negative)
[2018-01-19 23:01] LABS: Bedside Glucose 298 mg/dL (70-110)
[2018-01-20] VITALS (11 sets, daily range): BP systolic 110–132; BP diastolic 64–80; PULSE 64–88; RESP 14–18; TEMP 36.4–36.8; O2SAT 93–100; BMI 27.1
[2018-01-20] MEDS: oxyCODONE 5 MG Tablet 10 MG PO ×2 (01:14→07:02)
[2018-01-20] MEDS: 0.9% NaCl Peripheral Flush Adult/Peds IV ×3 (03:55→22:41)
[2018-01-20] MEDS: HYDROmorphone 0.5 MG/0.5 ML SYRINGE IV ×4 (03:55→22:40)
[2018-01-20] MEDS: Piperacil/Tazobactam 3.375 GM/50 ML ML IV ×3 (05:05→22:00)
[2018-01-20] MEDS: Baclofen 10 MG Tablet PO ×2 (05:05→22:00)
[2018-01-20 07:01] LABS: Bedside Glucose 194 mg/dL (70-110)
--- NOTE | 2018-01-20 07:33 | PCM.RX.CS ---
Consult Pharmacy has been consulted to manage selected antiobiotic: Vancomycin Type of Consult: New start Suspected Infection: Skin/Soft tissue Prior Doses of Antibiotics Received/Current Regimen: Medications Discontinued Medications Vancomycin HCl 1,250 mg/ (Sodium Chloride) 275 mls @ 183.333 mls/hr IV X1 ONE Stop: 01/19/18 21:29 Last Admin: 01/19/18 20:25 Dose: 183.333 mls/hr Labs: Sodium 142 mmol/L (136-145) 01/19/18 20:11 Potassium 3.8 mmol/L (3.5-5.1) 01/19/18 20:11 Chloride 110 mmol/L (98-107) H 01/19/18 20:11 Carbon Dioxide 26.0 mmol/L (21.0-32.0) 01/19/18 20:11 Anion Gap 6 (5-15) 01/19/18 20:11 BUN 13 mg/dL (7-18) 01/19/18 20:11 Creatinine 0.65 mg/dL (0.55-1.02) 01/19/18 20:11 Est GFR (MDRD) Af Amer 126 mL/min (>60) 01/19/18 20:11 Est GFR (MDRD) Non-Af 104 mL/min (>60) 01/19/18 20:11 BUN/Creatinine Ratio 20.0 RATIO (10-20) 01/19/18 20:11 Glucose 228 mg/dL (74-106) H 01/19/18 20:11 Weight used for dosin kg Estimated Creatinine Clearance: 110 mL/min Goal Trough: 10-15 mcg/mL Pharmacy Plan for Drug Dosing: Patient received course of vancomycin here previously. Renal function and weight similar, based on that admission, recommend vancomycin 1000mg IV q8h. Check trough prior to 4th dose. Pharmacy Service will continue to monitor and adjust dosing as required. Follow-Up Labs: Trough Vancomycin - 01/21/18 @ 1100
--- NOTE | 2018-01-20 08:25 | NURSING ---
Breakfast tray removed from pt. and will wait to give po meds when nurse knows when she will be going for surgery.
--- NOTE | 2018-01-20 08:33 | PCM.PN.HOSP ---
Patient Problems: Active and Suspected Problems Skin flap infection (Acute) left posterior thigh flap Vitals/I&O's: Vital Signs Temp Pulse Resp BP Pulse Ox 97.9 F 80 18 126/79 H 97 01/20/18 08:13 01/20/18 08:19 01/20/18 08:13 01/20/18 08:13 01/20/18 08:13 Oxygen Delivery Method Room Air Weight: 81.374 kg Body Mass Index (BMI) 27.2 Finger Stick Blood Glucose 267 Intake and Output for Last 24 Hours 01/18/18 01/19/18 01/20/18 23:59 23:59 23:59 Intake Total 2231 / 2231 Balance 2231 Laboratory Results 01/19/18 20:11: WBC 5.2, RBC 4.09 L, Hgb 12.2, Hct 37.4, MCV 91.4, MCH 29.8, MCHC 32.6, RDW 13.1, RDW Differential 44.0 H, Plt Count 313, MPV 9.4, ESR 23 H 01/19/18 20:11: Sodium 142, Potassium 3.8, Chloride 110 H, Carbon Dioxide 26.0, Anion Gap 6, BUN 13, Creatinine 0.65, Estim Creat Clear Calc 110.25, Est GFR (MDRD) Af Amer 126, Est GFR (MDRD) Non-Af 104, BUN/Creatinine Ratio 20.0, Glucose 228 H, Calcium 8.2 L, Total Bilirubin 0.10 L, AST 11 L, ALT 14, Alkaline Phosphatase 77, C-React Prot Ext Range < 2.90, Total Protein 6.9, Albumin 2.8 L, Globulin 4.1, Albumin/Globulin Ratio 0.7 L, Prealbumin 20.3 01/19/18 20:11: Hemoglobin A1c 7.9 H 01/19/18 21:10: S.aureus Protein A PCR NEGATIVE, MRSA (PCR) Negative 01/19/18 22:32: POC Glucose 298 H 01/20/18 06:56: POC Glucose 194 H Current Medications Aspirin (Aspirin, Baby) 81 mg PO DAILY@0800 [facility] Atorvastatin Calcium (Lipitor) 40 mg PO QHS [facility] Last Admin: 01/19/18 22:38 Dose: 40 mg Baclofen (Lioresal) 10 mg PO TID [facility] Last Admin: 01/20/18 05:05 Dose: 10 mg Clonazepam (Klonopin) 0.5 mg PO BID [facility] Last Admin: 01/19/18 22:39 Dose: 0.5 mg Dextrose (D50w Syringe) 0 gm IV X1 PRN; Protocol PRN Reason: Hypoglycemia Diclofenac Sodium (Voltaren) 50 mg PO BID [facility] Last Admin: 01/19/18 22:38 Dose: 50 mg Docusate Sodium (Colace) 100 mg PO BID [facility] Last Admin: 01/19/18 22:39 Dose: 100 mg Duloxetine HCl (Cymbalta) 60 mg PO BID [facility] Last Admin: 01/19/18 22:39 Dose: 60 mg Famotidine (Pepcid) 20 mg PO BID [facility] Last Admin: 01/19/18 22:38 Dose: 20 mg Glucagon () 1 mg IM .X1 PRN PRN Reason: Hypoglycemia Hydromorphone HCl (Dilaudid Inj) 0.5 mg IV Q4H PRN PRN PRN Reason: SEVERE PAIN (6-10/10) Last Admin: 01/20/18 08:30 Dose: 0.5 mg Lactated Ringer's () 1,000 mls @ 60 mls/hr IV .[id number] [facility] Last Admin: 01/19/18 20:25 Dose: 60 mls/hr Piperacillin Sod/Tazobactam Sod (Zosyn) 3.375 gm in 50 mls @ 12.5 mls/hr IV Q8 [facility] Last Admin: 01/20/18 05:05 Dose: 12.5 mls/hr Sodium Chloride () 250 mls @ 15 mls/hr IV .[id number] PRN PRN Reason: SALINE FLUSH Last Admin: 01/19/18 22:39 Dose: 15 mls/hr Vancomycin HCl (Vancomycin) 1,000 mg in 200 mls @ 200 mls/hr IV Q8H [facility] Insulin Aspart (Novolog Flexpen (Bkc)) 0 units SC TIDAC [facility] PRN Reason: Protocol Last Admin: 01/20/18 07:02 Dose: 2 u Insulin Detemir (Levemir (Bkc)) 40 units SC QHS [facility] Last Admin: 01/19/18 22:40 Dose: 40 u Loratadine (Claritin) 10 mg PO DAILY [facility] Nutritional Formula (James - [place] Flavor) 1 packet PO BIDCM [facility] Nutritional Formula (Lactose Free) (Glucerna Shake) 120 ml PO 4X/DAY [facility] Last Admin: 01/19/18 22:40 Dose: Not Given Ondansetron HCl (Zofran) 4 mg IV Q6H PRN PRN PRN Reason: NAUSEA Oxycodone HCl (Oxyir) 10 mg PO Q4H PRN PRN PRN Reason: SEVERE PAIN (6-10/10) Last Admin: 01/20/18 07:02 Dose: 10 mg Pantoprazole Sodium (Protonix) 40 mg PO DAILY [facility] Pregabalin (Lyrica) 150 mg PO BID [facility] Last Admin: 01/19/18 22:39 Dose: 150 mg Promethazine HCl (Phenergan Tablet) 25 mg PO Q4H PRN PRN PRN Reason: NAUSEA/VOMITING Sodium Chloride () 5 - 30 ml IV UD PRN PRN Reason: SALINE FLUSH Last Admin: 01/20/18 08:30 Dose: 10 ml Medical Necessity - Tobacco Use Smoking Status: Heavy Smoker (>10/day) Tobacco Use: Cigarettes Assessment/Plan Active and Suspected Problems Skin flap infection (Acute) left posterior thigh flap
[2018-01-20 08:43] LABS: Hemoglobin 12.5 g/dl (12.0-15.0); Mean Corp Hgb Conc 32.9 g/gl (32-36); Mean Corpuscular Hgb 30.6 pg (27.0-32.0); Mean Corpuscular Volume 93.1 fL (81-99); Mean Platelet Vol. 9.7 fl (6.2-12.0); Platelet Count 300 K/mm3 (150-450); RBC Distribution Width CV 12.9 % (11.6-14.6); RBC Distribution Width SD 42.9 fl (35.1-43.9); Red Blood Count 4.08 M/mm3 (4.2-5.4); Scan Indicated on CBC? Y/N NO; White Blood Count 4.6 K/mm3 (4.4-11.0)
[2018-01-20 09:00] LABS: Anion Gap 7 (5-15); BUN 11 mg/dL (7-18); BUN/Creat Ratio 18.7 RATIO (10-20); Chloride 108 mmol/L (98-107); Creatinine, Serum 0.59 mg/dL (0.55-1.02); EST Glomerular Filtration Rate 117 mL/min (>60); Est Glom Filt Rate - Afr Amer 142 mL/min (>60); Estimated Creatinine Clearance 121.47 ml/min; Glucose 112 mg/dL (74-106); Potassium 3.9 mmol/L (3.5-5.1); Sodium Level 142 mmol/L (136-145)
--- NOTE | 2018-01-20 09:20 | PRES_PTH ---
PATIENT: BERTRAM GARY LOC: MS3 U#:[id number] AGE/SX: 47/F ROOM: [facility] RE01/19/[address]: Dr. Grzegorz Guadarrama MD : 1970 BED: 1 DIS: 01/23/2018 SPEC #: [id number] RECD: 01/21/18 08:10 STATUS: ZENA REChau #: [id number] LANIE: 01/20/18 09:[address]: Grzegorz Guadarrama DEPT: SURGICAL PATHOLOGY RECD BY: Bill Espinoza ENTERED: 01/21/18 09:05 SP TYPE: PRESS SORE OTHR DR: Dr. Judy Knox, MD Nilesh Hutchinson, MD Al Noe, MD Loulou Yost Primary Care Phys Tissues: Ischium, NOS Procedures: Surgery Specimen Level III HEADER OPERATION: Left ischial/perineal pressure sore flap wound with inferior PRE-OP DIAGNOSIS: Traumatic left ischial/perineal pressure sore, stage 4, S/P inferior gluteal thigh fasciocutaneous flap with compromise and drainage TISSUE SUBMITTED: Soft tissue left ischial/perineal area with posterior thigh extension MICROSCOPIC DIAGNOSIS Soft tissue left ischial/perineal area with posterior thigh extension: Pieces of skin and fibroadipose tissue with focal ulceration, acute and chronic inflammation, granulation tissue reaction, fat necrosis, and foreign body giant cell reaction. ISABELLA:nain 01/22/18 MICROSCOPIC DESCRIPTION Slides are reviewed. GROSS DESCRIPTION Received in fixative is one container labeled with the patient's name and designated soft tissue left ischial/perineal area with posterior thigh extension. The specimen consists of an irregular piece of soft tissue measuring 7 x 4 x 1.5 cm. No mass lesion is identified. Vest Tailor sections are submitted in two cassettes. / ISABELLA:nain 01/21/18 TC:2 CPT: 55652
[2018-01-20] MEDS: Famotidine 20 MG Tablet PO ×2 (10:05→22:00)
[2018-01-20] MEDS: DULoxetine Hcl 60 MG Capsule PO ×2 (10:06→22:00)
[2018-01-20] MEDS: Pantoprazole Sodium 40 MG Tablet PO (10:06)
[2018-01-20] MEDS: Loratadine 10 MG Tablet PO (10:06)
[2018-01-20] MEDS: Pregabalin 75 MG Capsule 150 MG PO ×2 (10:09→22:00)
[2018-01-20] MEDS: clonazePAM 0.5 MG Tablet PO ×2 (10:10→22:00)
--- NOTE | 2018-01-20 11:12 | PCM.PROGNOTE ---
Patient Problems: Active and Suspected Problems Skin flap infection (Acute) left posterior thigh flap Subjective: Chief complaint: Follow-up after consultation for medical management after admission for an infected traumatic left ischial/perineal stage IV ulcer status post inferior gluteal thigh flap. Patient seen and examined. No acute events overnight. She complains of posterior left thigh pain, 6-7 out of 10 in severity, not radiating. Constant throbbing pain. She denies fever chills. No chest pain or shortness of breath. Her vital signs are stable. - Physical Exam General: Alert, Oriented x3, Cooperative, - - She is in mild to moderate pain. HEENT: Atraumatic, PERRLA, EOMI Oral: Moist Mucosa, No Gingival or Mucosal Lesions/ Ulcerations Neck: Supple, No JVD, Negative Carotid Bruits, Trachea Midline, Thyroid Normal Size and Texture Lungs: Clear to auscultation, No rhonchi, No wheeze, No rales, Diminished Cardiovascular: Regular rate, Regular Rhythm, Normal S1, Normal S2, PMI Normal Abdomen: Bowel Sounds Present, Soft, Non Tender, Non-Distended, No Hepato-splenomegaly, - - Colostomy bag in place. Extremities: No clubbing, No cyanosis, No edema, - - Status post below right knee amputation. Skin: No rashes, Ulcer/ Wound Lymphatic: No Cervical, Supraclavicular, or Inguinal Adenopathy Neurological: Cranial nerves II-XII grossly intact, Neuro grossly intact Psych/Mental Status: Normal Affect, Appropriate, Alert and oriented to time, place, person, mood and affect Vital Signs Temp Pulse Resp BP Pulse Ox 97.9 F 80 18 126/79 H 97 01/20/18 08:13 01/20/18 08:19 01/20/18 08:13 01/20/18 08:13 01/20/18 08:13 Oxygen Delivery Method Room Air Weight: 179 lb 6.4 oz Body Mass Index (BMI) 27.2 Finger Stick Blood Glucose 267 Intake and Output for Last 24 Hours 01/18/18 01/19/18 01/20/18 23:59 23:59 23:59 Intake Total 2232 / 2232 Balance 2232 / 2232 Microbiology Past 72 Hours 01/19/18 21:10 Gram Stain - Final Wound - Buttock Laboratory Tests Past 24 Hrs 01/19/18 01/19/18 01/19/18 20:11 20:11 20:11 WBC 5.2 RBC 4.09 L Hgb 12.2 Hct 37.4 MCV 91.4 MCH 29.8 MCHC 32.6 RDW 13.1 RDW Differential 44.0 H Plt Count 313 MPV 9.4 ESR 23 H Sodium 142 Potassium 3.8 Chloride 110 H Carbon Dioxide 26.0 Anion Gap 6 BUN 13 Creatinine 0.65 Estim Creat Clear Calc 110.25 Est GFR (MDRD) Af Amer 126 Est GFR (MDRD) Non-Af 104 BUN/Creatinine Ratio 20.0 Glucose 228 H Hemoglobin A1c 7.9 H Calcium 8.2 L Total Bilirubin 0.10 L AST 11 L ALT 14 Alkaline Phosphatase 77 C-React Prot Ext Range < 2.90 Total Protein 6.9 Albumin 2.8 L Globulin 4.1 Albumin/Globulin Ratio 0.7 L Prealbumin 20.3 S.aureus Protein A PCR MRSA (PCR) 01/19/18 01/20/18 01/20/18 21:10 08:30 08:30 WBC 4.6 RBC 4.08 L Hgb 12.5 Hct 38.0 MCV 93.1 MCH 30.6 MCHC 32.9 RDW 12.9 RDW Differential 42.9 Plt Count 300 MPV 9.7 ESR Sodium 142 Potassium 3.9 Chloride 108 H Carbon Dioxide 27.0 Anion Gap 7 BUN 11 Creatinine 0.59 Estim Creat Clear Calc 121.47 Est GFR (MDRD) Af Amer 142 Est GFR (MDRD) Non-Af 117 BUN/Creatinine Ratio 18.7 Glucose 112 H Hemoglobin A1c Calcium 8.0 L Total Bilirubin AST ALT Alkaline Phosphatase C-React Prot Ext Range Total Protein Albumin Globulin Albumin/Globulin Ratio Prealbumin S.aureus Protein A PCR NEGATIVE MRSA (PCR) Negative POC Glucose 01/20/18 01/19/18 06:56 22:32 POC Glucose 194 H 298 H Clinical Impression(s) from Imaging Studies Lower Extremity CT 01/19/18 19:16 IMPRESSION: Air inclusions along the scar and in the adjacent subcutaneous fat extending from the left lower buttocks along the left posterior medial thigh to the level just above the knee as detailed above. Multiple small air collections are seen and subcutaneous fat stranding along the scar, most severe at the left medial buttocks, with the inflammation/infection extends beyond the fascia into the left gluteal musculature. Additional small focus of extension deep to the fascia is noted just above the knee. at 2 Reported and signed by: Kathie Hernandez MD Electronically Signed: Kathie Hernandez MD at 20:40 EDT Tel , Service support , Pelvis CT 01/19/18 19:16 IMPRESSION: Air inclusions along the scar and in the adjacent subcutaneous fat extending from the left lower buttocks along the left posterior medial thigh to the level just above the knee as detailed above. Multiple small air collections are seen and subcutaneous fat stranding along the scar, most severe at the left medial buttocks, with the inflammation/infection extends beyond the fascia into the left gluteal musculature. Additional small focus of extension deep to the fascia is noted just above the knee. at 2042 Reported and signed by: Kathie Hernandez MD Electronically Signed: Kathie Hernandez MD at 20:41 EDT Tel , Service support , Medical Necessity - Tobacco Use Smoking Status: Heavy Smoker (>10/day) Tobacco Use: Cigarettes Assessment/Plan Active and Suspected Problems Skin flap infection (Acute) left posterior thigh flap This is a 47 years old female patient admitted for surgical debridement for infected left inferior gluteal skin flap that was done for traumatic left ischial/perineal stage IV pressure sore/ulcer and I am seeing this patient in consultation for medical management. #1 infected left inferior gluteal fasciocutaneous skin flap: She had traumatic left ischial/perineal pressure sore that was complicated by infection, went for skin flap and on follow-up postoperatively, she was found to have drainage of the skin flap and she was admitted for infected skin flap. She had that surgery for the traumatic left eye also encouraged [place], cultures from January 06, 2018 revealed staph aureus and anaerobes. She was on doxycycline and Flagyl. Her vital signs are stable. She is on IV vancomycin. Wound cultures pending. Routine blood work was unremarkable, afebrile. Plan for surgery according to Dr. Guadarrama. #2 type 2 diabetes mellitus: Blood sugar seemed to be under fair control. She is on Levemir insulin as well as insulin sliding scale. Plan to continue same treatment. #3 peripheral vascular disease: Status post below right knee amputation. She is on aspirin, statin and Plavix. Stable. #4 chronic pain syndrome: She is on Lyrica, OxyIR as needed as well as IV hydromorphone. #5 hyperlipidemia: Continue statins. #6 DVT prophylaxis: SCDs, she is on for surgery. This note was generated with [employer] dictation software. It may contain incorrect words, spelling, and punctuation that were not noted in checking the note before signing. Code Visit Inpatient E&M: 47222 Subs Hosp L2
--- NOTE | 2018-01-20 11:22 | PN_ITS ---
Patient Problems: Active and Suspected Problems Skin flap infection (Acute) left posterior thigh flap Subjective: Chief complaint: Follow-up after consultation for medical management after admission for an infected traumatic left ischial/perineal stage IV ulcer status post inferior gluteal thigh flap. Patient seen and examined. No acute events overnight. She complains of posterior left thigh pain, 6-7 out of 10 in severity, not radiating. Constant throbbing pain. She denies fever chills. No chest pain or shortness of breath. Her vital signs are stable. - Physical Exam General: Alert, Oriented x3, Cooperative, - - She is in mild to moderate pain. HEENT: Atraumatic, PERRLA, EOMI Oral: Moist Mucosa, No Gingival or Mucosal Lesions/ Ulcerations Neck: Supple, No JVD, Negative Carotid Bruits, Trachea Midline, Thyroid Normal Size and Texture Lungs: Clear to auscultation, No rhonchi, No wheeze, No rales, Diminished Cardiovascular: Regular rate, Regular Rhythm, Normal S1, Normal S2, PMI Normal Abdomen: Bowel Sounds Present, Soft, Non Tender, Non-Distended, No Hepato- splenomegaly, - - Colostomy bag in place. Extremities: No clubbing, No cyanosis, No edema, - - Status post below right knee amputation. Skin: No rashes, Ulcer/ Wound Lymphatic: No Cervical, Supraclavicular, or Inguinal Adenopathy Neurological: Cranial nerves II-XII grossly intact, Neuro grossly intact Psych/Mental Status: Normal Affect, Appropriate, Alert and oriented to time, place, person, mood and affect Vital Signs Temp Pulse Resp BP Pulse Ox 97.9 F 80 18 126/79 H 97 01/20/18 08:13 01/20/18 08:19 01/20/18 08:13 01/20/18 08:13 01/20/18 08:13 Oxygen Delivery Method Room Air Weight: 179 lb 6.4 oz Body Mass Index (BMI) 27.2 Finger Stick Blood Glucose 267 Intake and Output for Last 24 Hours 01/18/18 01/19/18 01/20/18 23:59 23:59 23:59 Intake Total 2232 / 2232 Balance 2232 / 2232 Microbiology Past 72 Hours 01/19/18 21:10 Gram Stain - Final Wound - Buttock Laboratory Tests Past 24 Hrs 01/19/18 01/19/18 01/19/18 20:11 20:11 20:11 WBC 5.2 RBC 4.09 L Hgb 12.2 Hct 37.4 MCV 91.4 MCH 29.8 MCHC 32.6 RDW 13.1 RDW Differential 44.0 H Plt Count 313 MPV 9.4 ESR 23 H Sodium 142 Potassium 3.8 Chloride 110 H Carbon Dioxide 26.0 Anion Gap 6 BUN 13 Creatinine 0.65 Estim Creat Clear Calc 110.25 Est GFR (MDRD) Af Amer 126 Est GFR (MDRD) Non-Af 104 BUN/Creatinine Ratio 20.0 Glucose 228 H Hemoglobin A1c 7.9 H Calcium 8.2 L Total Bilirubin 0.10 L AST 11 L ALT 14 Alkaline Phosphatase 77 C-React Prot Ext Range < 2.90 Total Protein 6.9 Albumin 2.8 L Globulin 4.1 Albumin/Globulin Ratio 0.7 L Prealbumin 20.3 S.aureus Protein A PCR MRSA (PCR) 01/19/18 01/20/18 01/20/18 21:10 08:30 08:30 WBC 4.6 RBC 4.08 L Hgb 12.5 Hct 38.0 MCV 93.1 MCH 30.6 MCHC 32.9 RDW 12.9 RDW Differential 42.9 Plt Count 300 MPV 9.7 ESR Sodium 142 Potassium 3.9 Chloride 108 H Carbon Dioxide 27.0 Anion Gap 7 BUN 11 Creatinine 0.59 Estim Creat Clear Calc 121.47 Est GFR (MDRD) Af Amer 142 Est GFR (MDRD) Non-Af 117 BUN/Creatinine Ratio 18.7 Glucose 112 H Hemoglobin A1c Calcium 8.0 L Total Bilirubin AST ALT Alkaline Phosphatase C-React Prot Ext Range Total Protein Albumin Globulin Albumin/Globulin Ratio Prealbumin S.aureus Protein A PCR NEGATIVE MRSA (PCR) Negative POC Glucose 01/20/18 01/19/18 06:56 22:32 POC Glucose 194 H 298 H Clinical Impression(s) from Imaging Studies Lower Extremity CT 01/19/18 19:16 IMPRESSION: Air inclusions along the scar and in the adjacent subcutaneous fat extending from the left lower buttocks along the left posterior medial thigh to the level just above the knee as detailed above. Multiple small air collections are seen and subcutaneous fat stranding along the scar, most severe at the left medial buttocks, with the inflammation/infection extends beyond the fascia into the left gluteal musculature. Additional small focus of extension deep to the fascia is noted just above the knee. at 2 Reported and signed by: Kathie Hernandez MD Electronically Signed: Kathie Hernandez MD at 20:40 EDT Tel , Service support , Pelvis CT 01/19/18 19:16 IMPRESSION: Air inclusions along the scar and in the adjacent subcutaneous fat extending from the left lower buttocks along the left posterior medial thigh to the level just above the knee as detailed above. Multiple small air collections are seen and subcutaneous fat stranding along the scar, most severe at the left medial buttocks, with the inflammation/infection extends beyond the fascia into the left gluteal musculature. Additional small focus of extension deep to the fascia is noted just above the knee. at 2042 Reported and signed by: Kathie Hernandez MD Electronically Signed: Kathie Hernandez MD at 20:41 EDT Tel , Service support , Medical Necessity - Tobacco Use Smoking Status: Heavy Smoker (>10/day) Tobacco Use: Cigarettes Assessment/Plan Active and Suspected Problems Skin flap infection (Acute) left posterior thigh flap This is a 47 years old female patient admitted for surgical debridement for infected left inferior gluteal skin flap that was done for traumatic left ischial/perineal stage IV pressure sore/ulcer and I am seeing this patient in consultation for medical management. #1 infected left inferior gluteal fasciocutaneous skin flap: She had traumatic left ischial/perineal pressure sore that was complicated by infection, went for skin flap and on follow-up postoperatively, she was found to have drainage of the skin flap and she was admitted for infected skin flap. She had that surgery for the traumatic left eye also encouraged [place], cultures from January revealed staph aureus and anaerobes. She was on doxycycline and Flagyl. Her vital signs are stable. She is on IV vancomycin. Wound cultures pending. Routine blood work was unremarkable, afebrile. Plan for surgery according to Dr. Guadarrama. #2 type 2 diabetes mellitus: Blood sugar seemed to be under fair control. She is on Levemir insulin as well as insulin sliding scale. Plan to continue same treatment. #3 peripheral vascular disease: Status post below right knee amputation. She is on aspirin, statin and Plavix. Stable. #4 chronic pain syndrome: She is on Lyrica, OxyIR as needed as well as IV hydromorphone. #5 hyperlipidemia: Continue statins. #6 DVT prophylaxis: SCDs, she is on for surgery. This note was generated with [employer] dictation software. It may contain incorrect words, spelling, and punctuation that were not noted in checking the note before signing. Code Visit Inpatient E&M: 96108 Subs Hosp L2
[2018-01-20 11:26] LABS: Bedside Glucose 106 mg/dL (70-110)
[2018-01-20 11:45] LABS: Pregnancy, Serum, hCG Quali. NEGATIVE Negative (0-9 Nonpreg)
[2018-01-20 11:58] LABS: Hemoglobin A1c 7.9 % (4.2-6.3)
[2018-01-20] MEDS: Lactated Ringers 1,000 ML 60 ML IV ×2 (13:18→23:48)
--- NOTE | 2018-01-20 13:24 | NURSING ---
wound photo: left posterior thigh
[2018-01-20 13:36] LABS: Bedside Glucose 105 mg/dL (70-110)
--- NOTE | 2018-01-20 13:37 | CASEMGMT ---
ADIN HALEY Face to Face with patient for initial transition planning/care coordination assessment. ADIN HALEY introduced self and role at [facility]. Patient lying in bed, alert and oriented. Patient willing to participate in assessment and is able to answer all questions appropriately. Care providers, pharmacy, and demographics verified. Patient states that per Dr. Guadarrama, she will need to go to SNF for IV ATB and wound care at discharge. RN SUDHA updated patient that SW will assist patient with discharge planning needs. Referral made to [facility]AY[facility] Villalobos to assist with SNF placement. Disposition Plan: SNF
--- NOTE | 2018-01-20 13:42 | NURSING ---
REPORT CALLED TO GILL OAKLEY.
--- NOTE | 2018-01-20 15:34 | CASEMGMT ---
Social Work Note RN SUDHA Fofana informed this worker that pt will need placement at discharge per Dr. Guadarrama. SW in to see pt to discuss discharge planning. Pt states that she is interested in TCU or inpatient rehab. SW informed pt that TCU doesn't accept pt's insurance and that there is a criteria that pt has to meet to be admitted into inpatient rehab. SW informed pt that this worker will check with inpatient rehab to see if they are able to accept pt. SW encouraged pt to have other choices for facilities in case inpatient rehab is unable to accept. SW provided pt with list of in network facilities. SW encouraged pt to pick a second and third choice for facilities. Pt states that she will look over list. Pt denied additional needs or concerns at this time. This worker placed a call to Thania with inpatient rehab. Per Thania she can accept pt and once PT/OT evaluates pt she will submit for pre-cert for pt. Plan: Inpatient rehab pending pre-cert [facility]alobos STATISTICIAN [employer]ORET[employer], THRILL PERFORMER
--- NOTE | 2018-01-20 18:42 | OP.PN_ITS ---
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 3. s/p multiple debridements and VAC placement and inferior gluteal thigh fasciocutaneous flap. 4 Compromised flap medially and inferiorly with infected drainage. 5. Diabetes mellitus. Post-Operative Diagnosis: Same. Surgery/Procedure Performed:: Surgical preparation left ischial/perineal pressure sore flap wound with inferior extension onto posterior thigh with incision and drainage and excisional debridement infection abscess (252 cm2). Description of Surgical Findings:: 47 year old woman comes in for further evaluation of her postop wound in her left ischial/perineal area after an inferior gluteal thigh fasciocutaneous flap on 12/04/17. 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 The surgery was done in [place]. She has since moved to [place] and presents today for further evaluation and treatment. Her wound culture from 01/06/18 showed Staphylococcus aureus and Anaerobes. She was started on Doxycycline and Flagyl will be added. She states there has been intermittent drainage from her perineal area and she has been changing the silver dressings more than once per day. She denies any fever. She was admitted to the hospital for more aggressive wound care and to start IV antibiotics in preparation for operative intervention. CT showed air inclusions along the scar and in the adjacent subcutaneous fat extending from the left lower buttocks along the left posterior medial thigh to the level just above the knee as detailed above. Multiple small air collections are seen and subcutaneous fat stranding along the scar, most severe at the left medial buttocks, with the inflammation/infection extends beyond the fascia into the left gluteal musculature. Additional small focus of extension deep to the fascia is noted just above the knee. Today the patient underwent surgical preparation left ischial/perineal pressure sore flap wound with inferior extension onto posterior thigh with incision and drainage and excisional debridement infection abscess (252 cm2). Size of defect left ischial/perineal area with inferior extension onto posterior thigh - 9 x 28 x 4 cm. Estimated Blood Loss: 150 ml. Specimen's removed: 1. Left ischial/perineal pressure sore compromised wound flap with inferior extension onto posterior thigh sent to Pathology and Microbiology. 2. MRSA wound DNA by PCR. Drains: None. Type of Anesthesia:: General - Admit VTE Documentation VTE Present on Admission: No VTE Mechan Device Prophylaxis: SCD's VTE Pharm Prophylaxis ordered?: No
[2018-01-20 19:16] LABS: Bedside Glucose 102 mg/dL (70-110)
--- NOTE | 2018-01-20 21:21 | PCM.OPRPT ---
Report of Operation Date of Procedure: 01/20/18 Pre-Operative Diagnosis: 1. 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 3. s/p multiple debridements and VAC placement and inferior gluteal thigh fasciocutaneous flap. 4 Compromised flap medially and inferiorly with infected drainage. 5. Diabetes mellitus. Post-Operative Diagnosis: Same. Surgery/Procedure Performed:: Surgical preparation left ischial/perineal pressure sore flap wound with inferior extension onto posterior thigh with incision and drainage and excisional debridement infection abscess (252 cm2). Description of Surgical Findings:: 47 year old woman comes in for further evaluation of her postop wound in her left ischial/perineal area after an inferior gluteal thigh fasciocutaneous flap on 12/04/17. 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 The surgery was done in [place]. She has since moved to [place] and presents today for further evaluation and treatment. Her wound culture from 01/06/18 showed Staphylococcus aureus and Anaerobes. She was started on Doxycycline and Flagyl will be added. She states there has been intermittent drainage from her perineal area and she has been changing the silver dressings more than once per day. She denies any fever. She was admitted to the hospital for more aggressive wound care and to start IV antibiotics in preparation for operative intervention. CT showed air inclusions along the scar and in the adjacent subcutaneous fat extending from the left lower buttocks along the left posterior medial thigh to the level just above the knee as detailed above. Multiple small air collections are seen and subcutaneous fat stranding along the scar, most severe at the left medial buttocks, with the inflammation/infection extends beyond the fascia into the left gluteal musculature. Additional small focus of extension deep to the fascia is noted just above the knee. Patient was informed of the risks and complications of the procedure including alternatives to surgery. These were discussed with her personally. She voices understanding and wishes to proceed. Size of defect left ischial/perineal area with inferior extension onto posterior thigh - 9 x 28 x 4 cm. 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 Left ischial/perineal pressure sore compromised wound flap with inferior extension onto posterior thigh sent to Pathology and Microbiology. 2. MRSA wound DNA by PCR. Drains: None. Estimated Blood Loss (mL): 150 ml. Description of Procedure: Patient was taken to OR in supine position and was placed under general anesthesia. She was then placed in the prone position and her left ischial/perineal and posterior thigh areas were prepped and draped in the usual fashion. SCD was placed on the left leg for DVT prophylaxis. Perioperative antibiotics were given intravenously. Using xylocaine with epinephrine, the wounds and flap incisions were infiltrated. After waiting 5 minutes for the anesthetic to take effect, incisions were made through the previous flap incisions. Some pus was seen in the subcutaneous tissue along with a lot of exudate. The exudate and serosanguinous drainage extended deep into the gluteal muscle. The ulcer in the left ischial/perineal area was excised in a circular fashion. It was located right on top of the anal opening with anal muscular sphincter easily palpable. A curette was used to debride the abnormal scar tissue and seroma capsule on the underlying muscular fascia. Some of the tissue was sent to Microbiology for culture and to Pathology for analysis to rule out carcinoma. MRSA wound DNA by PCR was also done as well. The wound was irrigated with saline. Hemostasis was obtained with electrocautery. No exposed bone was seen. The size of the wound after incision and drainage and excisional debridement was 9 x 28 x 4 cm. The wound was then packed with Mepitel nonadherent dressing followed by Kerlix gauze with Betadine followed by dry Kerlix gauze and a compression JOSE D wrap. Patient tolerated the procedure well and was sent to PACU in satisfactory condition. She will be sent upstairs for further postop care. The VAC will be placed tomorrow. With the complexity of the wound needing the VAC followed by the need for IV antibiotics for a few weeks, I think she would benefit from a short stay at an ECF. Her Prealbumin was 20.3. Encourage nutritional supplementation with protein to help the healing process. When the wound stabilizes and the infection is under control, can consider delayed closure with muscle flaps and skin grafting. Grafts/Implants Used: None. - Complications None. - Admit VTE Documentation VTE Present on Admission: No VTE Mechan Device Prophylaxis: SCD's VTE Pharm Prophylaxis ordered?: No Code Visit Surgery Charges CPT - 73542 ICD-10 - L89.324, E11.622, Z87.2 06508 T86.822, E11.622, T81.89xA, Z87.2
[2018-01-20 21:42] LABS: M R Staph aureus DNA By PCR Negative (Negative); Staph aureus DNA By PCR POSITIVE (Negative)
[2018-01-20 21:43] LABS: Probe Check PASS
[2018-01-20] MEDS: 0.9% NaCl IVPB Med Flush (250 mL) 15 ML IV (22:00)
[2018-01-20] MEDS: Atorvastatin Calcium 40 MG Tablet PO (22:00)
[2018-01-20] MEDS: Docusate Sodium 100 MG Capsule PO (22:00)
[2018-01-20 22:16] LABS: Bedside Glucose 221 mg/dL (70-110)
[2018-01-21] MEDS: oxyCODONE 5 MG Tablet 10 MG PO ×4 (00:51→13:32)
[2018-01-21] MEDS: 0.9% NaCl Peripheral Flush Adult/Peds IV ×4 (02:53→15:21)
[2018-01-21] MEDS: HYDROmorphone 0.5 MG/0.5 ML SYRINGE IV ×4 (02:54→15:21)
[2018-01-21] MEDS: Baclofen 10 MG Tablet PO ×3 (05:06→22:04)
[2018-01-21 05:07] VITALS: BP 125/71; PULSE 81; RESP 16; TEMP 36.9; O2SAT 97
[2018-01-21] MEDS: Piperacil/Tazobactam 3.375 GM/50 ML ML IV ×3 (06:49→22:03)
[2018-01-21 07:05] LABS: Bedside Glucose 416 mg/dL (70-110)
[2018-01-21 07:10] LABS: Absolute Lymphocyte Count 0.42 X10^3/ul (0.83-4.51); Absolute Neutrophil Count 7.7 X10^3/uL (2.0-7.7); Basophil# 0.02 X10^3/uL; Basophil% 0.2 % (0-1); Hematocrit 32.8 % (37-47); Hemoglobin 10.6 g/dl (12.0-15.0); Lymphocyte # 0.42 X10^3/ul (4.0); Mean Corp Hgb Conc 32.3 g/gl (32-36); Mean Corpuscular Hgb 29.4 pg (27.0-32.0); Mean Corpuscular Volume 91.1 fL (81-99); Mean Platelet Vol. 9.7 fl (6.2-12.0); Monocyte# 0.31 X10^3/uL; Monocyte% 3.7 % (0-10); Neutrophil # 7.66 X10^3/uL (2.7-7.7); Platelet Count 294 K/mm3 (150-450); RBC Distribution Width SD 43.5 fl (35.1-43.9); White Blood Count 8.4 K/mm3 (4.4-11.0)
[2018-01-21 07:17] LABS: Differential Indicated SCAN CRITERIA MET; POSITIVE COUNT NO; POSITIVE DIFFERENTIAL YES; POSITIVE MORPHOLOGY NO
[2018-01-21 07:28] LABS: Hypochromasia RARE; Platelet Estimate ADEQUATE (ADEQ); Red Cell Morphology N CYTIC NORMAL (NORM C&C)
[2018-01-21 07:39] LABS: Anion Gap 7 (5-15); BUN 21 mg/dL (7-18); BUN/Creat Ratio 20.6 RATIO (10-20); Calcium,Total 8.5 mg/dL (8.5-10.1); Chloride 102 mmol/L (98-107); Creatinine, Serum 1.02 mg/dL (0.55-1.02); EST Glomerular Filtration Rate 62 mL/min (>60); Est Glom Filt Rate - Afr Amer 75 mL/min (>60); Estimated Creatinine Clearance 70.26 ml/min; Glucose 385 mg/dL (74-106); Potassium 4.5 mmol/L (3.5-5.1); Sodium Level 135 mmol/L (136-145)
[2018-01-21] MEDS: Aspirin 81 MG TAB.CHEW PO (08:31)
--- NOTE | 2018-01-21 08:34 | NURSING ---
wound photo: left posterior thigh/ischial/perineal area
--- NOTE | 2018-01-21 08:54 | PN_ITS ---
Patient Problems: Active and Suspected Problems Skin flap infection (Acute) left posterior thigh flap Subjective: Chief complaint: Follow-up after consultation for medical management after admission for an infected traumatic left ischial/perineal stage IV ulcer, status post incision and debridement as well as excisional debridement. Patient seen and examined. No acute events overnight. Left thigh pain is not well controlled, IV Dilaudid works but not the oxycodone. Her vital signs are stable. She requested to start on Chantix for quit smoking. - Physical Exam General: Alert, Oriented x3, Cooperative, No apparent distress HEENT: Atraumatic, PERRLA, EOMI Oral: Moist Mucosa, No Gingival or Mucosal Lesions/ Ulcerations Neck: Supple, No JVD, Negative Carotid Bruits, Trachea Midline, Thyroid Normal Size and Texture Lungs: Clear to auscultation, Normal air movement, No rhonchi, No wheeze, No rales Cardiovascular: Regular rate, Regular Rhythm, Normal S1, Normal S2, PMI Normal Abdomen: Bowel Sounds Present, Soft, Non Tender, Non-Distended, No Hepato- splenomegaly, - - Colostomy bag in place. Extremities: No clubbing, No cyanosis, No edema, - - Status post below right knee amputation. Skin: No rashes, Ulcer/ Wound Lymphatic: No Cervical, Supraclavicular, or Inguinal Adenopathy Neurological: Cranial nerves II-XII grossly intact, Neuro grossly intact Psych/Mental Status: Normal Affect, Appropriate, Alert and oriented to time, place, person, mood and affect Vital Signs Temp Pulse Resp BP Pulse Ox 98.4 F 81 16 125/71 H 97 01/21/18 05:07 01/21/18 05:07 01/21/18 05:07 01/21/18 05:07 01/21/18 05:07 Oxygen Delivery Method Room Air Weight: 179 lb 7.3 oz Body Mass Index (BMI) 27.1 Finger Stick Blood Glucose 102 Intake and Output for Last 24 Hours 01/19/18 01/20/18 01/21/18 23:59 23:59 23:59 Intake Total 3908 / 3908 1365 / 1365 Balance 3908 / 3908 1365 / 1365 Microbiology Past 72 Hours 01/19/18 21:10 Gram Stain - Final Wound - Buttock Wound Culture - Preliminary No growth aerobically. Laboratory Tests Past 24 Hrs 01/20/18 01/20/18 01/20/18 08:30 08:30 08:30 WBC RBC Hgb Hct MCV MCH MCHC RDW RDW Differential Plt Count MPV Immature Gran % (Auto) Neut % (Auto) Lymph % (Auto) [place] % (Auto) Eos % (Auto) Baso % (Auto) Absolute Neuts (auto) Absolute Lymphs (auto) Total Counted Platelet Estimate RBC Morphology Hypochromasia Sodium 142 Potassium 3.9 Chloride 108 H Carbon Dioxide 27.0 Anion Gap 7 BUN 11 Creatinine 0.59 Estim Creat Clear Calc 121.47 Est GFR (MDRD) Af Amer 142 Est GFR (MDRD) Non-Af 117 BUN/Creatinine Ratio 18.7 Glucose 112 H Hemoglobin A1c 7.9 H Calcium 8.0 L Serum , Qual NEGATIVE S.aureus Protein A PCR MRSA (PCR) 01/20/18 01/21/18 01/21/18 19:00 06:42 06:42 WBC 8.4 RBC 3.60 L Hgb 10.6 L Hct 32.8 L MCV 91.1 MCH 29.4 MCHC 32.3 RDW 13.0 RDW Differential 43.5 Plt Count 294 MPV 9.7 Immature Gran % (Auto) 0.100 Neut % (Auto) 91.0 H Lymph % (Auto) 5.0 L [place] % (Auto) 3.7 Eos % (Auto) 0.0 Baso % (Auto) 0.2 Absolute Neuts (auto) 7.7 Absolute Lymphs (auto) 0.42 L Total Counted Not Reportable Platelet Estimate ADEQUATE RBC Morphology N CYTIC Hypochromasia RARE Sodium 135 L Potassium 4.5 Chloride 102 Carbon Dioxide 26.0 Anion Gap 7 BUN 21 H Creatinine 1.02 Estim Creat Clear Calc 70.26 Est GFR (MDRD) Af Amer 75 Est GFR (MDRD) Non-Af 62 BUN/Creatinine Ratio 20.6 H Glucose 385 H Hemoglobin A1c Calcium 8.5 Serum , Qual S.aureus Protein A PCR POSITIVE H MRSA (PCR) Negative POC Glucose 01/21/18 01/20/18 01/20/18 06:47 21:58 19:12 POC Glucose 416 H 221 H 102 01/20/18 01/20/18 13:28 11:19 POC Glucose 105 106 Medical Necessity - Tobacco Use Smoking Status: Heavy Smoker (>10/day) Tobacco Use: Cigarettes Assessment/Plan Active and Suspected Problems Skin flap infection (Acute) left posterior thigh flap This is a 47 years old female patient admitted for surgical debridement for infected left inferior gluteal skin flap that was done for traumatic left ischial/perineal stage IV pressure sore/ulcer and I am seeing this patient in consultation for medical management. #1 infected left inferior gluteal fasciocutaneous skin flap: Status post incision, debridement and excisional debridement, postoperative day 1. She is on IV vancomycin and Zosyn. Vital signs stable, afebrile. Repeat routine blood work is remarkable for anemia, otherwise normal. Wound cultures are pending. Dr. Guadarrama is managing. #2 type 2 diabetes mellitus: Blood sugar seemed to be under fair control. She is on Levemir insulin as well as insulin sliding scale. Plan to continue same treatment. #3 peripheral vascular disease: Status post below right knee amputation. She is on aspirin, statin and Plavix. Stable. #4 chronic pain syndrome: She is on Lyrica, OxyIR as needed as well as IV hydromorphone. #5 hyperlipidemia: Continue statins. #6 tobacco abuse: Patient requests to be started on Chantix. Plan to start Chantix 1 mg p.o. twice daily. #7 DVT prophylaxis: SCDs, she is on for surgery. This note was generated with [employer] dictation software. It may contain incorrect words, spelling, and punctuation that were not noted in checking the note before signing. Code Visit Inpatient E&M: 70499 Subs Hosp L2
[2018-01-21 09:25] VITALS: BP 112/63; PULSE 88; PULSE 96; RESP 16; TEMP 37.3; O2SAT 94
[2018-01-21] MEDS: Glucerna Shake 120 ML LIQUID PO ×4 (09:29→22:04)
[2018-01-21] MEDS: Loratadine 10 MG Tablet PO (09:30)
[2018-01-21] MEDS: Famotidine 20 MG Tablet PO ×2 (09:30→22:03)
[2018-01-21] MEDS: Pantoprazole Sodium 40 MG Tablet PO (09:30)
[2018-01-21] MEDS: DULoxetine Hcl 60 MG Capsule PO ×2 (09:30→22:04)
[2018-01-21] MEDS: Docusate Sodium 100 MG Capsule PO ×2 (09:30→22:04)
[2018-01-21] MEDS: clonazePAM 0.5 MG Tablet PO ×2 (09:30→22:04)
[2018-01-21] MEDS: Pregabalin 75 MG Capsule 150 MG PO ×2 (09:30→22:04)
--- NOTE | 2018-01-21 11:02 | CASEMGMT ---
Addendum entered by Carolyn Villalobos 01/22/18 08:58: Per Thania, she still submitted for pre-cert yesterday for pt to go to inpatient rehab. Original Note: Social Work Note PT/OT spoke with this worker to inform this worker that pt is walking well and they feel that pt is walking too well for inpatient rehab. Pt could still benefit for SNF placement for wound vac and IV antibiotics. NAYAN placed a call to Thania with inpatient rehab to inform her that PT/OT have seen patient and that they feel pt would not be approved for inpatient rehab. NAYAN placed a call to Thania with inpatient rehab to provide her with this update. It should be noted that this worker yesterday placed a call to Thania in inpatient rehab and informed her that pt had amputation before and that she was at the hospital to receive another surgery from Dr. Guadarrama. NAYAN will continue to follow along to assist with discharge planning. Plan: Inpatient rehab pending pre-cert Carolyn Villalobos RADIOLOGY TRANSPORTER, INGOT BUGGY OPERATOR
[2018-01-21] MEDS: Varenicline 1 MG Tablet PO ×2 (11:18→22:04)
[2018-01-21 11:26] LABS: Bedside Glucose 454 mg/dL (70-110)
[2018-01-21 11:29] LABS: Vancomycin, Trough Level 21.1 ug/mL (5.0-15.0)
--- NOTE | 2018-01-21 14:21 | OP.PCM_ITS ---
Report of Operation Date of Procedure: 01/20/18 Pre-Operative Diagnosis: 1. 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 3. s/p multiple debridements and VAC placement and inferior gluteal thigh fasciocutaneous flap. 4 Compromised flap medially and inferiorly with infected drainage. 5. Diabetes mellitus. Post-Operative Diagnosis: Same. Surgery/Procedure Performed:: Surgical preparation left ischial/perineal pressure sore flap wound with inferior extension onto posterior thigh with incision and drainage and excisional debridement infection abscess (252 cm2). Description of Surgical Findings:: 47 year old woman comes in for further evaluation of her postop wound in her left ischial/perineal area after an inferior gluteal thigh fasciocutaneous flap on 12/04/17. 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 The surgery was done in [place]. She has since moved to [place] and presents today for further evaluation and treatment. Her wound culture from 01/06/18 showed Staphylococcus aureus and Anaerobes. She was started on Doxycycline and Flagyl will be added. She states there has been intermittent drainage from her perineal area and she has been changing the silver dressings more than once per day. She denies any fever. She was admitted to the hospital for more aggressive wound care and to start IV antibiotics in preparation for operative intervention. CT showed air inclusions along the scar and in the adjacent subcutaneous fat extending from the left lower buttocks along the left posterior medial thigh to the level just above the knee as detailed above. Multiple small air collections are seen and subcutaneous fat stranding along the scar, most severe at the left medial buttocks, with the inflammation/infection extends beyond the fascia into the left gluteal musculature. Additional small focus of extension deep to the fascia is noted just above the knee. Patient was informed of the risks and complications of the procedure including alternatives to surgery. These were discussed with her personally. She voices understanding and wishes to proceed. Size of defect left ischial/perineal area with inferior extension onto posterior thigh - 9 x 28 x 4 cm. 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 Left ischial/perineal pressure sore compromised wound flap with inferior extension onto posterior thigh sent to Pathology and Microbiology. 2. MRSA wound DNA by PCR. Drains: None. Estimated Blood Loss (mL): 150 ml. Description of Procedure: Patient was taken to OR in supine position and was placed under general anesthesia. She was then placed in the prone position and her left ischial/ perineal and posterior thigh areas were prepped and draped in the usual fashion. SCD was placed on the left leg for DVT prophylaxis. Perioperative antibiotics were given intravenously. Using xylocaine with epinephrine, the wounds and flap incisions were infiltrated. After waiting 5 minutes for the anesthetic to take effect, incisions were made through the previous flap incisions. Some pus was seen in the subcutaneous tissue along with a lot of exudate. The exudate and serosanguinous drainage extended deep into the gluteal muscle. The ulcer in the left ischial/perineal area was excised in a circular fashion. It was located right on top of the anal opening with anal muscular sphincter easily palpable. A curette was used to debride the abnormal scar tissue and seroma capsule on the underlying muscular fascia. Some of the tissue was sent to Microbiology for culture and to Pathology for analysis to rule out carcinoma. MRSA wound DNA by PCR was also done as well. The wound was irrigated with saline. Hemostasis was obtained with electrocautery. No exposed bone was seen. The size of the wound after incision and drainage and excisional debridement was 9 x 28 x 4 cm. The wound was then packed with Mepitel nonadherent dressing followed by Kerlix gauze with Betadine followed by dry Kerlix gauze and a compression JOSE D wrap. Patient tolerated the procedure well and was sent to PACU in satisfactory condition. She will be sent upstairs for further postop care. The VAC will be placed tomorrow. With the complexity of the wound needing the VAC followed by the need for IV antibiotics for a few weeks, I think she would benefit from a short stay at an ECF. Her Prealbumin was 20.3. Encourage nutritional supplementation with protein to help the healing process. When the wound stabilizes and the infection is under control, can consider delayed closure with muscle flaps and skin grafting. Grafts/Implants Used: None. - Complications None. - Admit VTE Documentation VTE Present on Admission: No VTE Mechan Device Prophylaxis: SCD's VTE Pharm Prophylaxis ordered?: No Code Visit Surgery Charges CPT - 54228 ICD-10 - L89.324, E11.622, Z87.2 63719 T86.822, E11.622, T81.89xA, Z87.2
--- NOTE | 2018-01-21 14:45 | PCM.RX.CS ---
Consult Pharmacy has been consulted to manage selected antiobiotic: Vancomycin Type of Consult: Follow-up Suspected Infection: Skin/Soft tissue Prior Doses of Antibiotics Received/Current Regimen: Currently on 1000mg IV q8h Labs: Sodium 135 mmol/L (136-145) L 01/21/18 06:42 Potassium 4.5 mmol/L (3.5-5.1) 01/21/18 06:42 Chloride 102 mmol/L (98-107) 01/21/18 06:42 Carbon Dioxide 26.0 mmol/L (21.0-32.0) 01/21/18 06:42 Anion Gap 7 (5-15) 01/21/18 06:42 BUN 21 mg/dL (7-18) H 01/21/18 06:42 Creatinine 1.02 mg/dL (0.55-1.02) 01/21/18 06:42 Est GFR (MDRD) Af Amer 75 mL/min (>60) 01/21/18 06:42 Est GFR (MDRD) Non-Af 62 mL/min (>60) 01/21/18 06:42 BUN/Creatinine Ratio 20.6 RATIO (10-20) H 01/21/18 06:42 Glucose 385 mg/dL (74-106) H 01/21/18 06:42 Vancomycin Trough 21.1 ug/mL (5.0-15.0) H 01/21/18 10:20 Microbiology: Microbiology 01/20/18 19:00 Biopsy - Other Gram Stain - Final 01/20/18 19:00 Biopsy - Other Wound Culture - Preliminary No growth-Final to follow 01/19/18 21:10 Wound - Buttock Gram Stain - Final 01/19/18 21:10 Wound - Buttock Wound Culture - Preliminary No growth aerobically. Goal Trough: 10-15 mcg/mL Pharmacy Plan for Drug Dosing: Vancomycin trough drawn before this morning's dose at 11:00 came back as 21.1. The dosage was then recalculated using Clinical Pharmacology's vancomycin adjustment calculator and will be reduced to 1250mg IV q12h with the first dose of the new regimen scheduled for tonight at 23:00. Another trough will be obtained before the 4th dose. Pharmacy Service will continue to monitor and adjust dosing as required. Follow-Up Labs: Trough Vancomycin Labs to be done on [date and time ordered]: 01/23/18 10:30
[2018-01-21 15:14] VITALS: BP 122/72; PULSE 93; RESP 18; TEMP 36.9; O2SAT 97
[2018-01-21] MEDS: Lactated Ringers 1,000 ML 60 ML IV (15:20)
[2018-01-21 16:06] LABS: Bedside Glucose 394 mg/dL (70-110)
[2018-01-21 22:00] VITALS: BP 125/74; PULSE 88; RESP 16; TEMP 36.9; O2SAT 98
[2018-01-21] MEDS: Atorvastatin Calcium 40 MG Tablet PO (22:04)
[2018-01-21 22:16] LABS: Bedside Glucose 386 mg/dL (70-110)
--- NOTE | 2018-01-21 22:41 | PCM.PN.SRG ---
Patient Problems: Active and Suspected Problems Skin flap infection (Acute) left posterior thigh flap Subjective: Postop #1 Patient is resting comfortably. VAC applied today. - Physical Exam General: Alert, Oriented x3 HEENT: PERRLA, EOMI Neck: Supple Lungs: Clear to auscultation Cardiovascular: Regular rate, Regular Rhythm Abdomen: Soft, Non-Distended Skin: Ulcer/ Wound - left ischial/perineal wound with inferior extension onto posterior thigh is stable. Small amount of oozing present easily controlled with gentle pressure. VAC applied without difficulty. Neurological: Cranial nerves II-XII grossly intact Psych/Mental Status: Normal Affect, Appropriate Vital Signs Temp Pulse Resp BP Pulse Ox 98.5 F 93 18 122/72 H 97 01/21/18 15:14 01/21/18 15:14 01/21/18 15:14 01/21/18 15:14 01/21/18 15:14 Oxygen Delivery Method Room Air Weight: 179 lb 7.3 oz Body Mass Index (BMI) 27.1 Finger Stick Blood Glucose 102 Intake and Output for Last 24 Hours 01/19/18 01/20/18 01/21/18 23:59 23:59 23:59 Intake Total 3908 / 3908 3549 / 3549 Balance 3908 / 3908 3549 / 3549 Microbiology Past 72 Hours 01/20/18 19:00 Gram Stain - Final Biopsy - Other Wound Culture - Preliminary No growth-Final to follow 01/19/18 21:10 Gram Stain - Final Wound - Buttock Wound Culture - Preliminary No growth aerobically. Laboratory Tests Past 24 Hrs 01/21/18 01/21/18 01/21/18 06:42 06:42 10:20 WBC 8.4 RBC 3.60 L Hgb 10.6 L Hct 32.8 L MCV 91.1 MCH 29.4 MCHC 32.3 RDW 13.0 RDW Differential 43.5 Plt Count 294 MPV 9.7 Immature Gran % (Auto) 0.100 Neut % (Auto) 91.0 H Lymph % (Auto) 5.0 L Fisher % (Auto) 3.7 Eos % (Auto) 0.0 Baso % (Auto) 0.2 Absolute Neuts (auto) 7.7 Absolute Lymphs (auto) 0.42 L Total Counted Not Reportable Platelet Estimate ADEQUATE RBC Morphology N CYTIC Hypochromasia RARE Sodium 135 L Potassium 4.5 Chloride 102 Carbon Dioxide 26.0 Anion Gap 7 BUN 21 H Creatinine 1.02 Estim Creat Clear Calc 70.26 Est GFR (MDRD) Af Amer 75 Est GFR (MDRD) Non-Af 62 BUN/Creatinine Ratio 20.6 H Glucose 385 H Calcium 8.5 Vancomycin Trough 21.1 H POC Glucose 01/21/18 01/21/18 01/21/18 22:08 15:58 11:02 POC Glucose 386 H 394 H 454 H* 01/21/18 06:47 POC Glucose 416 H Medical Necessity - Tobacco Use Smoking Status: Heavy Smoker (>10/day) Tobacco Use: Cigarettes Assessment/Plan Active and Suspected Problems Skin flap infection (Acute) left posterior thigh flap 1. 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 3. s/p multiple debridements and VAC placement and inferior gluteal thigh fasciocutaneous flap. 4 Compromised flap medially and inferiorly with infected drainage. 5. Diabetes mellitus. 6. s/p surgical preparation left ischial/perineal pressure sore flap wound with inferior extension onto posterior thigh with incision and drainage and excisional debridement infection abscess (252 cm2). Patient's wound is stable. Small amount of oozing easily controlled with gentle pressure. VAC applied today. Hgb postop is 10.6. Prealbumin was 20.3. Encourage nutritional supplementation with protein to help the healing process. Operative cultures are pending. Had Staphylococcus aureus preop. MRSA wound DNA by PCR was negative. Continue Vancomycin and Zosyn. Will go to ECF on Ceftriaxone for a couple of weeks. Will have PICC line placed. ECF evaluation in process.
[2018-01-22 05:38] VITALS: BP 105/61; PULSE 60; RESP 16; TEMP 36.5; O2SAT 95
[2018-01-22] MEDS: Baclofen 10 MG Tablet PO ×3 (05:42→22:10)
[2018-01-22] MEDS: Piperacil/Tazobactam 3.375 GM/50 ML ML IV (05:44)
[2018-01-22] MEDS: oxyCODONE 5 MG Tablet 10 MG PO ×3 (06:29→19:37)
[2018-01-22 06:41] LABS: Bedside Glucose 162 mg/dL (70-110)
--- NOTE | 2018-01-22 08:49 | PCM.PROGNOTE ---
Patient Problems: Active and Suspected Problems Skin flap infection (Acute) left posterior thigh flap Subjective: Chief complaint: Follow-up after consultation for medical management after admission for an infected traumatic left ischial/perineal stage IV ulcer, status post incision and debridement as well as excisional debridement. Patient seen and examined. No acute events overnight. She still complaining of left thigh pain. Denied any other complaints. Her vital signs are stable. - Physical Exam General: Alert, Oriented x3, Cooperative, No apparent distress HEENT: Atraumatic, PERRLA, EOMI Oral: Moist Mucosa, No Gingival or Mucosal Lesions/ Ulcerations Neck: Supple, No JVD, Negative Carotid Bruits, Trachea Midline, Thyroid Normal Size and Texture Lungs: Clear to auscultation, Normal air movement, No rhonchi, No wheeze, No rales Cardiovascular: Regular rate, Regular Rhythm, Normal S1, Normal S2, No murmurs, PMI Normal Abdomen: Bowel Sounds Present, Soft, Non Tender, Non-Distended, No Hepato-splenomegaly, - - Colostomy bag in place. Extremities: No clubbing, No cyanosis, No edema, - - Status post below right knee amputation. Skin: No rashes, Ulcer/ Wound Neurological: Cranial nerves II-XII grossly intact, Neuro grossly intact Psych/Mental Status: Normal Affect, Appropriate, Alert and oriented to time, place, person, mood and affect Vital Signs Temp Pulse Resp BP Pulse Ox 97.7 F L 60 16 105/61 95 01/22/18 05:38 01/22/18 05:38 01/22/18 05:38 01/22/18 05:38 01/22/18 05:38 Oxygen Delivery Method Room Air Weight: 179 lb 7.3 oz Body Mass Index (BMI) 27.1 Finger Stick Blood Glucose 102 Intake and Output for Last 24 Hours 01/20/18 01/21/18 01/22/18 23:59 23:59 23:59 Intake Total 3908 / 3908 4181 / 4181 830 / 830 Balance 3908 / 3908 4181 / 4181 830 / 830 Microbiology Past 72 Hours 01/19/18 21:10 Gram Stain - Final Wound - Buttock Wound Culture - Final No growth aerobically. 01/20/18 19:00 Gram Stain - Final Biopsy - Other Wound Culture - Preliminary No growth-Final to follow Laboratory Tests Past 24 Hrs 01/21/18 10:20 Vancomycin Trough 21.1 H POC Glucose 01/22/18 01/21/18 01/21/18 06:27 22:08 15:58 POC Glucose 162 H 386 H 394 H 01/21/18 11:02 POC Glucose 454 H* Medical Necessity - Tobacco Use Smoking Status: Heavy Smoker (>10/day) Tobacco Use: Cigarettes Assessment/Plan Active and Suspected Problems Skin flap infection (Acute) left posterior thigh flap This is a 47 years old female patient admitted for surgical debridement for infected left inferior gluteal skin flap that was done for traumatic left ischial/perineal stage IV pressure sore/ulcer and I am seeing this patient in consultation for medical management. #1 infected left inferior gluteal fasciocutaneous skin flap: Status post incision, debridement and excisional debridement, postoperative day 2. She is on IV vancomycin and Zosyn. Vital signs stable, afebrile. Repeat routine blood work is remarkable for anemia, otherwise normal. Preliminary wound cultures showed no growth, final is pending. Dr. Guadarrama is managing. #2 type 2 diabetes mellitus: Blood sugar has been fluctuating significantly, maximum was 454 mg/dL last night. She is on Levemir insulin as well as insulin sliding scale. Plan to change Levemir to 22 units twice daily. #3 peripheral vascular disease: Status post below right knee amputation. She is on aspirin, statin and Plavix. Stable. #4 chronic pain syndrome: She is on Lyrica, OxyIR as needed as well as IV hydromorphone. #5 hyperlipidemia: Continue statins. #6 tobacco abuse: Started on Chantix. #7 DVT prophylaxis: SCDs, This note was generated with [employer] dictation software. It may contain incorrect words, spelling, and punctuation that were not noted in checking the note before signing. Code Visit Inpatient E&M: 30414 Subs Hosp L2
[2018-01-22] MEDS: Aspirin 81 MG TAB.CHEW PO (09:08)
[2018-01-22] MEDS: Docusate Sodium 100 MG Capsule PO ×2 (09:08→22:10)
[2018-01-22] MEDS: Famotidine 20 MG Tablet PO ×2 (09:09→22:10)
[2018-01-22] MEDS: Loratadine 10 MG Tablet PO (09:09)
[2018-01-22] MEDS: Varenicline 1 MG Tablet PO ×2 (09:09→22:11)
[2018-01-22] MEDS: Pantoprazole Sodium 40 MG Tablet PO (09:09)
[2018-01-22] MEDS: DULoxetine Hcl 60 MG Capsule PO ×2 (09:09→22:09)
[2018-01-22] MEDS: Clopidogrel Bisulfate 75 MG Tablet PO (09:10)
[2018-01-22] MEDS: Glucerna Shake 120 ML LIQUID PO ×3 (09:22→22:11)
[2018-01-22] MEDS: clonazePAM 0.5 MG Tablet PO ×2 (09:22→22:08)
[2018-01-22] MEDS: Pregabalin 75 MG Capsule 150 MG PO ×2 (09:23→22:08)
[2018-01-22] MEDS: Lactated Ringers 1,000 ML 60 ML IV (09:36)
--- NOTE | 2018-01-22 09:39 | NURSING ---
Patient requested that colostomy appliance be changed. Patient states she is almost out of her supplies at home and will need a script for new supplies for home. explained to the patient that the scripts are typically signed either by the surgeon or a family physician. not sure if the hospitalist would feel comfortable signing a script for supplies. patient is still hoping to be able to go to Rehab at discharge. awaiting pre-cert at this time. colostomy appliance removed. there was a moderate amount of pasty brown stool. peristomal skin is intact. stoma measures approx 1 1/4 and is oval in shape. stoma sits at skin level. cleansed skin with warm water and patted dry. applied a 2 piece flat Jef appliance with an [employer] ring per patient's request. Discussed the option of a convex appliance if patient would have any problems with leaks since the stoma is at skin level. Pt prefers to keep current appliance at this time. will monitor for needs.
--- NOTE | 2018-01-22 09:53 | CASEMGMT ---
Addendum entered by Carolyn Villalobos 01/22/18 12:00: SW received call from Thania with inpatient rehab stating that she submitted pre-cert yesterday and she is waiting to hear from pt's insurance. Plan: Inpatient rehab pending pre-cert Original Note: Social Work Note SW received call from Thania with inpatient rehab stating that Dr. Clarke is agreeable for pt to come to inpatient rehab and that she is waiting for pre-cert from [facility]. Plan: Inpatient rehab pending pre-cert Carolyn Villalobos SOUND EFFECTS TECHNICIAN, PERSONAL FINANCIAL PLANNER
[2018-01-22 11:30] VITALS: BP 122/70; PULSE 75; RESP 16; TEMP 36.7; O2SAT 98
[2018-01-22 11:56] LABS: Bedside Glucose 255 mg/dL (70-110)
[2018-01-22 13:05] LABS: Hemoglobin 9.5 g/dl (12.0-15.0); Mean Corp Hgb Conc 32.8 g/gl (32-36); Mean Corpuscular Hgb 30.3 pg (27.0-32.0); Mean Corpuscular Volume 92.4 fL (81-99); Mean Platelet Vol. 9.8 fl (6.2-12.0); Platelet Count 265 K/mm3 (150-450); RBC Distribution Width CV 13.3 % (11.6-14.6); RBC Distribution Width SD 44.9 fl (35.1-43.9); Red Blood Count 3.14 M/mm3 (4.2-5.4); White Blood Count 8.8 K/mm3 (4.4-11.0)
[2018-01-22 13:06] LABS: Scan Indicated on CBC? Y/N NO
[2018-01-22 13:18] LABS: Anion Gap 6 (5-15); BUN 42 mg/dL (7-18); BUN/Creat Ratio 34.4 RATIO (10-20); Calcium,Total 9.1 mg/dL (8.5-10.1); Chloride 106 mmol/L (98-107); Creatinine, Serum 1.22 mg/dL (0.55-1.02); EST Glomerular Filtration Rate 51 mL/min (>60); Est Glom Filt Rate - Afr Amer 61 mL/min (>60); Estimated Creatinine Clearance 58.74 ml/min; Glucose 243 mg/dL (74-106); Potassium 4.8 mmol/L (3.5-5.1); Sodium Level 141 mmol/L (136-145)
[2018-01-22] MEDS: Ceftriaxone 1 GM/50 ML BAG IV (14:06)
--- NOTE | 2018-01-22 15:02 | CASEMGMT ---
Addendum entered by Carolyn Villalobos 01/22/18 15:06: Dr. Craig informed this worker that he didn't admit pt and that Dr. Guadarrama is following pt. NAYAN placed a call to Dr. Guadarrama to update him that pre-cert was obtained and that pt is able to go to inpatient rehab if medically cleared. Original Note: Social Work Note SW received call from Thania with inpatient rehab that pre-cert was obtained. NAYAN updated Dr. Craig, Charge Nurse Odalys, and RN Gab of this. Plan: Inpatient rehab when medically cleared Carolyn Villalobos GUEST SERVICE HOST, SCHOOL SPEECH THERAPIST
[2018-01-22] MEDS: HYDROmorphone 0.5 MG/0.5 ML SYRINGE IV ×2 (16:05→21:56)
[2018-01-22 16:26] LABS: Bedside Glucose 262 mg/dL (70-110)
[2018-01-22 16:30] VITALS: BP 121/77; PULSE 94; RESP 16; TEMP 36.9; O2SAT 98
--- NOTE | 2018-01-22 18:52 | PCM.PN.SRG ---
Subjective: Postop #2 Patient is resting comfortably. VAC in place. - Physical Exam General: Alert, Oriented x3 HEENT: PERRLA, EOMI Neck: Supple Lungs: Clear to auscultation Cardiovascular: Regular rate, Regular Rhythm Abdomen: Soft, Non-Distended Skin: Ulcer/ Wound - left ischial/perineal wound with inferior extension onto posterior thigh is stable. VAC in place. Mild amount of drainage in the canister, serousanguinous. Neurological: Cranial nerves II-XII grossly intact Psych/Mental Status: Normal Affect, Appropriate Vital Signs Temp Pulse Resp BP Pulse Ox 98.0 F 75 16 122/70 H 98 01/22/18 11:30 01/22/18 11:30 01/22/18 11:30 01/22/18 11:30 01/22/18 11:30 Oxygen Delivery Method Room Air Weight: 179 lb 7.3 oz Body Mass Index (BMI) 27.1 Finger Stick Blood Glucose 102 Intake and Output for Last 24 Hours 01/20/18 01/21/18 01/22/18 23:59 23:59 23:59 Intake Total 3908 / 3908 4181 / 4181 830 / 830 Balance 3908 / 3908 4181 / 4181 830 / 830 Microbiology Past 72 Hours 01/19/18 21:10 Gram Stain - Final Wound - Buttock Wound Culture - Final No growth aerobically. Anaerobic Culture - Preliminary Checking for anaerobes, further studies to follow. 01/20/18 19:00 Gram Stain - Final Biopsy - Other Wound Culture - Preliminary Coag Negative Staph Laboratory Tests Past 24 Hrs 01/22/18 01/22/18 12:50 12:50 WBC 8.8 RBC 3.14 L Hgb 9.5 L Hct 29.0 L MCV 92.4 MCH 30.3 MCHC 32.8 RDW 13.3 RDW Differential 44.9 H Plt Count 265 MPV 9.8 Sodium 141 Potassium 4.8 Chloride 106 Carbon Dioxide 29.0 Anion Gap 6 BUN 42 H Creatinine 1.22 H Estim Creat Clear Calc 58.74 Est GFR (MDRD) Af Amer 61 Est GFR (MDRD) Non-Af 51 L BUN/Creatinine Ratio 34.4 H Glucose 243 H Calcium 9.1 POC Glucose 01/22/18 01/22/18 01/22/18 16:15 11:45 06:27 POC Glucose 262 H 255 H 162 H 01/21/18 22:08 POC Glucose 386 H Medical Necessity - Tobacco Use Smoking Status: Heavy Smoker (>10/day) Tobacco Use: Cigarettes Assessment/Plan 1. 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 3. s/p multiple debridements and VAC placement and inferior gluteal thigh fasciocutaneous flap. 4 Compromised flap medially and inferiorly with infected drainage. 5. Diabetes mellitus. 6. s/p surgical preparation left ischial/perineal pressure sore flap wound with inferior extension onto posterior thigh with incision and drainage and excisional debridement infection abscess (252 cm2). 7. Anemia of chronic disease, acute on chronic. Patient's wound is stable. VAC in place. Mild amount of drainage in the canister. Hgb slightly decreased at 9.5 from 10.6. Anemia mostly from IV dilution and some operative blood loss. Will start Iron supplements. Prealbumin was 20.3. Encourage nutritional supplementation with protein to help the healing process. Operative cultures are pending. Had Staphylococcus aureus preop. MRSA wound DNA by PCR was negative. Vancomycin and Zosyn have been stopped. Was started on Ceftriaxone for a couple of weeks. PICC line placed today. ECF evaluation in process. She has been approved for Inpatient Rehab. Discharge in AM to Rehab.
[2018-01-22] MEDS: Iron Polysaccharide Complex 150 MG CAPSULE PO (19:40)
[2018-01-22 21:45] VITALS: BP 111/60; PULSE 83; RESP 16; TEMP 37.2; O2SAT 98
[2018-01-22] MEDS: Atorvastatin Calcium 40 MG Tablet PO (22:12)
[2018-01-22 22:26] LABS: Bedside Glucose 265 mg/dL (70-110)
[2018-01-23] MEDS: oxyCODONE 5 MG Tablet 10 MG PO ×3 (01:21→11:27)
[2018-01-23 03:37] VITALS: BP 101/59; PULSE 68; RESP 16; TEMP 36.7; O2SAT 96
--- NOTE | 2018-01-23 06:37 | NURSING ---
PICC line dressing change completed at 0620. Catheter was exposed slightly more than 2 prior to and after dressing change (witnessed by Aliya OAKLEY). Pt mostly slept through dressing change.
[2018-01-23] MEDS: Baclofen 10 MG Tablet PO (06:41)
[2018-01-23 07:06] LABS: Bedside Glucose 192 mg/dL (70-110)
--- NOTE | 2018-01-23 08:08 | PN_ITS ---
Subjective: Chief complaint: Follow-up after consultation for medical management after admission for an infected traumatic left ischial/perineal stage IV ulcer, status post incision and debridement as well as excisional debridement. Patient seen and examined. No acute events overnight. Liver, she is doing better. Left thigh pain is severe according to the patient. Nursing staff mentioned that she has been doing fine. Vital signs are stable. - Physical Exam General: Alert, Oriented x3, Cooperative, No apparent distress HEENT: Atraumatic, PERRLA, EOMI Oral: Moist Mucosa, No Gingival or Mucosal Lesions/ Ulcerations Neck: Supple, No JVD, Negative Carotid Bruits, Trachea Midline, Thyroid Normal Size and Texture Lungs: Clear to auscultation, No rhonchi, No wheeze, No rales, Diminished Cardiovascular: Regular rate, Regular Rhythm, Normal S1, Normal S2, PMI Normal Abdomen: Bowel Sounds Present, Soft, Non Tender, Non-Distended, No Hepato- splenomegaly, - - Colostomy bag in place. Extremities: No clubbing, No cyanosis, No edema, - - Status below right knee amputation. Skin: No rashes, No breakdown Neurological: Cranial nerves II-XII grossly intact, Neuro grossly intact Psych/Mental Status: Normal Affect, Appropriate, Alert and oriented to time, place, person, mood and affect Vital Signs Temp Pulse Resp BP Pulse Ox 98.1 F 68 16 101/59 L 96 01/23/18 03:37 01/23/18 03:37 01/23/18 03:37 01/23/18 03:37 01/23/18 03:37 Oxygen Delivery Method Room Air Weight: 179 lb 7.3 oz Body Mass Index (BMI) 27.1 Finger Stick Blood Glucose 102 Intake and Output for Last 24 Hours 01/21/18 01/22/18 01/23/18 23:59 23:59 23:59 Intake Total 4181 / 4181 830 / 830 1000 / 1000 Output Total 1000 / 1000 Balance 4181 / 4181 830 / 830 0 / 0 Microbiology Past 72 Hours 01/19/18 21:10 Gram Stain - Final Wound - Buttock Wound Culture - Final No growth aerobically. Anaerobic Culture - Preliminary Checking for anaerobes, further studies to follow. 01/20/18 19:00 Gram Stain - Final Biopsy - Other Wound Culture - Preliminary Coag Negative Staph Laboratory Tests Past 24 Hrs 01/22/18 01/22/18 12:50 12:50 WBC 8.8 RBC 3.14 L Hgb 9.5 L Hct 29.0 L MCV 92.4 MCH 30.3 MCHC 32.8 RDW 13.3 RDW Differential 44.9 H Plt Count 265 MPV 9.8 Sodium 141 Potassium 4.8 Chloride 106 Carbon Dioxide 29.0 Anion Gap 6 BUN 42 H Creatinine 1.22 H Estim Creat Clear Calc 58.74 Est GFR (MDRD) Af Amer 61 Est GFR (MDRD) Non-Af 51 L BUN/Creatinine Ratio 34.4 H Glucose 243 H Calcium 9.1 POC Glucose 01/23/18 01/22/18 01/22/18 06:44 22:05 16:15 POC Glucose 192 H 265 H 262 H 01/22/18 11:45 POC Glucose 255 H Medical Necessity - Tobacco Use Smoking Status: Heavy Smoker (>10/day) Tobacco Use: Cigarettes Assessment/Plan This is a 47 years old female patient admitted for surgical debridement for infected left inferior gluteal skin flap that was done for traumatic left ischial/perineal stage IV pressure sore/ulcer and I am seeing this patient in consultation for medical management. #1 infected left inferior gluteal fasciocutaneous skin flap: Status post incision, debridement and excisional debridement, postoperative day 3. She is on IV Rocephin, IV vancomycin and Zosyn discontinued. Vital signs stable, afebrile. From a medical standpoint, patient can be discharged to long-term facility as planned, recommend to adjust Levemir insulin as below. #2 type 2 diabetes mellitus: Blood sugar is under better control after Levemir insulin changed to twice daily. She is on Levemir insulin, dose adjusted yesterday, as well as insulin sliding scale. Recommend to be discharged on the current dose of Levemir which has 22 units twice daily. She was on 40 units nightly at home. #3 peripheral vascular disease: Status post below right knee amputation. She is on aspirin, statin and Plavix. Stable. #4 chronic pain syndrome: She is on Lyrica, OxyIR as needed as well as IV hydromorphone. #5 hyperlipidemia: Continue statins. #6 tobacco abuse: Started on Chantix. #7 DVT prophylaxis: SCDs, This note was generated with [email or web address] software. It may contain incorrect words, spelling, and punctuation that were not noted in checking the note before signing. Code Visit Inpatient E&M: 14813 Subs Hosp L2
--- NOTE | 2018-01-23 08:47 | PCM.PROGNOTE ---
Subjective: Postop #3 Patient is resting comfortably. VAC change tolerated. Going to Rehab today. - Physical Exam General: Alert, Oriented x3 HEENT: PERRLA, EOMI Neck: Supple Lungs: Clear to auscultation Cardiovascular: Regular rate, Regular Rhythm Abdomen: Soft, Non-Distended Skin: Ulcer/ Wound - left ischial/perineal wound with inferior extension onto posterior thigh is stable. No bleeding noted. Some granulation tissue seen. Tolerated VAC change today. Neurological: Cranial nerves II-XII grossly intact Psych/Mental Status: Normal Affect, Appropriate Vital Signs Temp Pulse Resp BP Pulse Ox 98.1 F 68 16 101/59 L 96 01/23/18 03:37 01/23/18 03:37 01/23/18 03:37 01/23/18 03:37 01/23/18 03:37 Oxygen Delivery Method Room Air Weight: 179 lb 7.3 oz Body Mass Index (BMI) 27.1 Finger Stick Blood Glucose 102 Intake and Output for Last 24 Hours 01/21/18 01/22/18 01/23/18 23:59 23:59 23:59 Intake Total 4181 / 4181 830 / 830 1000 / 1000 Output Total 1000 / 1000 Balance 4181 / 4181 830 / 830 0 / 0 Microbiology Past 72 Hours 01/20/18 19:00 Gram Stain - Final Biopsy - Other Wound Culture - Final Staphylococcus epidermidis 01/19/18 21:10 Gram Stain - Final Wound - Buttock Wound Culture - Final No growth aerobically. Anaerobic Culture - Preliminary Checking for anaerobes, further studies to follow. Laboratory Tests Past 24 Hrs 01/22/18 01/22/18 12:50 12:50 WBC 8.8 RBC 3.14 L Hgb 9.5 L Hct 29.0 L MCV 92.4 MCH 30.3 MCHC 32.8 RDW 13.3 RDW Differential 44.9 H Plt Count 265 MPV 9.8 Sodium 141 Potassium 4.8 Chloride 106 Carbon Dioxide 29.0 Anion Gap 6 BUN 42 H Creatinine 1.22 H Estim Creat Clear Calc 58.74 Est GFR (MDRD) Af Amer 61 Est GFR (MDRD) Non-Af 51 L BUN/Creatinine Ratio 34.4 H Glucose 243 H Calcium 9.1 POC Glucose 01/23/18 01/22/18 01/22/18 06:44 22:05 16:15 POC Glucose 192 H 265 H 262 H 01/22/18 11:45 POC Glucose 255 H Medical Necessity - Tobacco Use Smoking Status: Heavy Smoker (>10/day) Tobacco Use: Cigarettes Assessment/Plan 1. 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 3. s/p multiple debridements and VAC placement and inferior gluteal thigh fasciocutaneous flap. 4 Compromised flap medially and inferiorly with infected drainage. 5. Diabetes mellitus. 6. s/p surgical preparation left ischial/perineal pressure sore flap wound with inferior extension onto posterior thigh with incision and drainage and excisional debridement infection abscess (252 cm2). 7. Anemia of chronic disease, acute on chronic. Patient's wound is stable. VAC changed today. Hgb slightly decreased at 9.5 from 10.6. Anemia mostly from IV dilution and some operative blood loss. Continue Iron supplements. Will check CBC weekly while on Ceftriaxone. Will also check CMP, ESR, and CRP weekly. Prealbumin was 20.3. Encourage nutritional supplementation with protein to help the healing process. Operative cultures show Staphylococcus epidermidis. Had Staphylococcus aureus preop. MRSA wound DNA by PCR was negative. Plan on Ceftriaxone for a couple of weeks. Will reassess when seen at Rehab. After discharge from Rehab, followup at the Wound Center. PICC line in place. She has been approved for Inpatient Rehab. Discharge to Rehab today.
--- NOTE | 2018-01-23 08:58 | PCM.TXEXTCAR ---
- Diet 01/19/18 18:34 Carb [Diet: Carbohydrate Controlled] Is pt able to select menu?: Yes - Routine Orders/Code Status Routine Lab Work: CBC - every Friday., - - CMP every Friday. ESR every Friday. CRP every Friday. Code Status: Full Code - Wound(s) lt buttock healing from drain tube Wound Type: Open Surgical Wound Dressing Change: VAC dressing changes three times per week at 150 mmHg continuous suction. lt buttock (rectual area) Wound Type: Open Surgical Wound Dressing Change: VAC dressing changes three times per week at 150 mmHg continuous suction. mid Left thigh Wound Type: Open Surgical Wound Dressing Change: VAC dressing changes three times per week lt post leg/ischial area Wound Type: Open Surgical Wound Dressing Change: VAC dressing changes three times per week at 150 mmHg continuous suction. - Therapies Weight Bearing: Weight bearing as tolerated Extremity Affected:: Bilateral Lower Physical Therapy: Eval and Treat Occupational Therapy: Eval and Treat - Problem/Diagnosis (1) Pressure sore of left ischium, stage 4 Status: Chronic Current Visit: No (2) Type 2 diabetes mellitus with other skin ulcer Status: Chronic Current Visit: No (3) Skin flap infection Status: Acute Comment: left posterior thigh flap Current Visit: No (4) Nonhealing surgical wound Status: Chronic Comment: left ischial/perineal area and posterior thigh. Current Visit: No (5) Hx of right BKA Status: Chronic Current Visit: No - Allergies/Procedures Done in Hospital Allergies/Adverse Reactions: Allergies fentanyl Allergy (Verified 01/16/18 22:42) Other morphine Adverse Reaction (Verified 01/16/18 22:42) Upset Stomach Procedures: PICC line placement, Wound Vac placement - Type of Care/Length of Stay Estimated LOS: Convalescent Care Less Than 30 days Type of Care Needed: Acute Rehab Rehab Potential: Good Prognosis: Good - Additional Orders/Day of Discharge H&P will serve as current which was dated: 01/06/18 - Wound Center History and Physical Day of Discharge: 01/23/18 - Dietary and Speech Recommendations Dietitian Recommendations/Changes: Suggest diet change to 2000 calorie, carbohydrate-controlled, cardiac. Continue James & glucerna shake on medpass as ordered. - Follow Up Care Primary Care Physician: Care Physician,No Primary [Primary Care Provider] - Please Follow Up With: Grzegorz Guadarrama MD When: at Wound Center after discharge from Rehab. Call [phone] for appt.
--- NOTE | 2018-01-23 09:17 | PCM.DC.SUM ---
Discharge Date and Diagnosis Date of Admission: 01/19/18 Date of Discharge: 01/23/18 - Primary Discharge Diagnosis Traumatic left ischial/perineal pressure sore, Stage IV. Nonhealing surgical wound left ischial/perineal area and posterior thigh. Compromised flap medially and inferiorly with infected drainage. Anemia of chronic disease, acute on chronic. 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 Chronic pain. PVD (peripheral vascular disease). HLD (hyperlipidemia). DM2 (diabetes mellitus, type 2). Benign essential HTN. s/p multiple debridements and VAC placement and inferior gluteal thigh fasciocutaneous flap. Hospital Course and Treatment Imaging Results: Diagnostic Data Lower Extremity CT 01/19/18 19:16 IMPRESSION: Air inclusions along the scar and in the adjacent subcutaneous fat extending from the left lower buttocks along the left posterior medial thigh to the level just above the knee as detailed above. Multiple small air collections are seen and subcutaneous fat stranding along the scar, most severe at the left medial buttocks, with the inflammation/infection extends beyond the fascia into the left gluteal musculature. Additional small focus of extension deep to the fascia is noted just above the knee. at 2042 Reported and signed by: Kathie Hernandez MD Electronically Signed: Kathie Hernandez MD at 20:40 EDT Tel , Service support , Pelvis CT 01/19/18 19:16 IMPRESSION: Air inclusions along the scar and in the adjacent subcutaneous fat extending from the left lower buttocks along the left posterior medial thigh to the level just above the knee as detailed above. Multiple small air collections are seen and subcutaneous fat stranding along the scar, most severe at the left medial buttocks, with the inflammation/infection extends beyond the fascia into the left gluteal musculature. Additional small focus of extension deep to the fascia is noted just above the knee. at 2042 Reported and signed by: Kathie Hernandez MD Electronically Signed: Kathie Hernandez MD at 20:41 EDT Tel , Service support , Consultations 01/20/18 07:18 Consult: Onc/Wound/assembler for puller over hand Routine Comment: Reason for Consult:: non-healing wound Hospitalist Group - Dr. Kathleen and Dr. Langford. Operations: - - 01/20/18 - Surgical preparation left ischial/perineal pressure sore flap wound with inferior extension onto posterior thigh with incision and drainage and excisional debridement infection abscess (252 cm2). Procedures: PICC line placement, Wound vac placement Summary of Care Provided: 47 year old woman came in to the Wound Center for further evaluation of her postop wound in her left ischial/perineal area after an inferior gluteal thigh fasciocutaneous flap on 12/04/17. 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 The surgery was done in [place]. She has since moved to [place] and presents today for further evaluation and treatment. Her wound culture from 01/06/18 showed Staphylococcus aureus and Anaerobes. She was started on Doxycycline and Flagyl was to be added. She states there has been intermittent drainage from her perineal area and she has been changing the silver dressings more than once per day. She denies any fever. At the Wound Center, there were openings inferiorly on the posterior thigh that showed some exudate and some odor. It tracked superiorly to the ischial/perineal wound. It was determined that continued care at home was problematic. It was recommended to be admitted for IV antibiotics and aggressive wound care and operative debridement. She was started on Vancomycin and Zosyn. Her HgbA1c was 7.9. Hospitalist group was consulted for medical management. Preop, CT Pelvis and Left Thigh were done. It showed inflammation involving the left gluteal muscle. She was taken to OR the next day, 01/20/18, where she underwent surgical preparation left ischial/perineal pressure sore flap wound with inferior extension onto posterior thigh with incision and drainage and excisional debridement infection abscess (252 cm2). She tolerated the procedure well. The next day, the VAC was applied. Her Prealbumin was 20.3. Encouraged nutritional supplementation with protein to help the healing process. After surgery, her Hgb drifted down to 10.6 and then 9.5. Iron supplementation was started. No active bleeding was noted. There was some IV dilution present. Will recheck as an outpatient when she gets to the Wound Center. Operative culture showed Staphylococcus epidermidis. With her history of Angeles's gangrene and diabetes mellitus, I felt she needed at least 2 weeks of IV antibiotics until seen at the Wound Center. Ceftriaxone was started as the Vancomycin and Zosyn were stopped. Will check weekly labs (CBC, CMP, ESR, CRP). She was evaluated for Rehab and was accepted. On the 4th postop day she was discharged and admitted to Inpatient Rehab on the 4th floor. She will followup at the Wound Center after discharge. Discharge Diet: Carb Control Diet, - - encourage nutritional supplementation with protein to help the healing process. Discharge Activity: May Shower - on the days the VAC is changed., - - activity as per Rehab. May shower in (days): 2 - may shower on the days the vac is changed. May resume sexual activity in: No Restrictions Weight Bearing Status: Weight bearing as tolerated - as per Rehab protocol. Additional Activity Instructions:: Wound VAC changes to left ischial/perineal area with inferior extension onto posterior thigh three times per week at 150 mmHg continuous suction. Call your doctor if your incision/area has: Continuous Slow Oozing, Sudden Increased Bleeding, Increased Pain/ Swelling, Increased Redness, Foul Smelling Discharge, Swelling at the incision site Call your doctor if you observe: Fever of 101 or Higher, Coldness, Increased Pain, Shortness of breath, Chest pain, Calf discomfort, Uncontrolled pain Suture Line Care: - - vac changes three times per week. Change Dressing in (Days):: 2 - vac changes three times per week. Cleanse incision/area with: Soap & Water - cleanse the wound with soap and water on the days the vac is changed. Home Medications: Medications to take at Discharge Aspirin [Aspirin, Baby] 81 mg PO DAILY@0800 04/26/16 Atorvastatin Calcium [Lipitor] 40 mg PO QHS 04/26/16 Baclofen 10 mg PO TID 04/26/16 Clopidogrel Bisulfate [Plavix] 75 mg PO DAILY 04/26/16 Duloxetine Hcl [Cymbalta] 60 mg PO BID 04/26/16 Insulin Aspart [Novolog Flexpen] 0 units SC TIDCM 04/26/16 Insulin Detemir [Levemir FlexPen] 40 units SC QHS 04/26/16 Pantoprazole Sodium [Protonix] 40 mg PO DAILY 04/26/16 Pregabalin [Lyrica] 150 mg PO BID 04/26/16 Ranitidine [Zantac] 150 mg PO BID 04/26/16 Clonazepam [Klonopin] 0.5 mg PO BID 07/02/16 Diclofenac Sodium 50 mg PO BID 12/30/17 Cetirizine HCl [Zyrtec] 10 mg PO DAILY 01/19/18 Ceftriaxone [Rocephin] 1 gm IV Q24 01/23/18 Diazepam [Valium] 5 mg PO BID #15 tab 01/23/18 Docusate Sodium [Colace] 100 mg PO BID 01/23/18 Glucagon 1 mg IM .X1 PRN syringe 01/23/18 Glucerna Shake 120 ml PO 4X/DAY 01/23/18 Insulin Aspart [Novolog Flexpen] See Protocol SC TIDAC 01/23/18 Iron Polysaccharide Complex [Ferrex 150] 150 mg PO DAILYCM 01/23/18 Nicotine Polacrilex [Nicotine Gum] 4 mg PO Q2H PRN PRN gum 01/23/18 Nutritional Supplement [James - ORANGE FLAVOR] 1 packet PO BIDCM 01/23/18 Oxycodone [Oxyir] 10 mg PO Q4H PRN PRN 7 Days #40 tablet 01/23/18 Varenicline [Chantix] 1 mg PO BID 01/23/18 proMETHazine tablet [Phenergan tablet] 25 mg PO Q4H PRN PRN tablet 01/23/18 Following Prescrptions Were Given to Patient: Oxycodone [Oxyir] 10 mg PO Q4H PRN PRN 7 Days #40 tablet PRN Reason: Severe Pain (6-10/10) Diazepam [Valium] 5 mg PO BID #15 tab Primary Care Physician: Care Physician,No Primary [Primary Care Provider] - Please Follow Up With: Grzegorz Guadarrama MD When: at Wound Center after discharge from Rehab. Call [phone] for appt. Disposition: Inpt Rehab Unit/Facility Minutes spent on discharge:: 35 Patient Condition:: Stable Medical Necessity - Tobacco Use Smoking Status: Heavy Smoker (>10/day) Tobacco Use: Cigarettes Meaningful Use Info Meaningful Use Diagnoses (Choose all that apply): None applicable
[2018-01-23 09:49] VITALS: BP 110/63; PULSE 79; RESP 18; TEMP 36.7; O2SAT 100
[2018-01-23] MEDS: Iron Polysaccharide Complex 150 MG CAPSULE PO (09:55)
[2018-01-23] MEDS: Aspirin 81 MG TAB.CHEW PO (09:55)
[2018-01-23] MEDS: Docusate Sodium 100 MG Capsule PO (09:55)
[2018-01-23] MEDS: DULoxetine Hcl 60 MG Capsule PO (09:55)
[2018-01-23] MEDS: Varenicline 1 MG Tablet PO (09:55)
[2018-01-23] MEDS: Loratadine 10 MG Tablet PO (09:55)
[2018-01-23] MEDS: Famotidine 20 MG Tablet PO (09:56)
[2018-01-23] MEDS: Pantoprazole Sodium 40 MG Tablet PO (09:56)
[2018-01-23] MEDS: Clopidogrel Bisulfate 75 MG Tablet PO (09:56)
[2018-01-23] MEDS: Ceftriaxone 1 GM/50 ML BAG IV (10:00)
[2018-01-23] MEDS: Pregabalin 75 MG Capsule 150 MG PO (10:01)
[2018-01-23] MEDS: Glucerna Shake 120 ML LIQUID PO (10:01)
[2018-01-23] MEDS: 0.9% NaCl Peripheral Flush Adult/Peds IV (10:01)
[2018-01-23] MEDS: clonazePAM 0.5 MG Tablet PO (10:01)
--- NOTE | 2018-01-23 10:08 | CASEMGMT ---
Addendum entered by Carolyn Villalobos 01/23/18 13:30: It should be noted that this worker asked pt if she would like this worker to call any family and friends to inform them that pt will be transferred to inpatient rehab. Pt denied. Pt states that she update her family and friends. Original Note: Social Work Note Dr. Guadarrama is discharging pt today. Dr. Guadarrama signed medication list and scripts. SW placed originals on folder and copies on pt's chart. NAYAN updated Charge Nurse Odalys that pt will be discharge today to inpatient rehab as pre-cert was obtained yesterday. NAYAN placed a call to Thania with inpatient rehab to inform her that pt will be discharging today. SW updated pt of this. Pt denied additional needs or concerns at this time. Plan: Discharge to inpatient rehab today Carolyn Villalobos PIPE LINER, LOAN EXPEDITOR
[2018-01-23 11:35] LABS: Bedside Glucose 246 mg/dL (70-110)
--- NOTE | 2018-01-23 12:39 | NURSING ---
report called to Armida, nurse on rehab unit- at 1120. Patient remained on MS to eat lunch and then will be transported at this time to rehab per physician order.
== END 2018-01-23 12:54 | disposition designated cancer center or children's hospital (05) | DRG 442 ==
PROVIDERS: Anesthesiology; Internal Medicine; Admitting Provider Surgery; Visit Provider Surgery
PROC: 0KBP0ZZ Excision of Left Hip Muscle, Open Approach (ICD-10-PCS; principal; 2018-01-20 09:05)
DX: T86.822 Skin graft (allograft) (autograft) infection (principal); L89.324 Pressure ulcer of left buttock, stage 4; L89.894 Pressure ulcer of other site, stage 4; T81.4XXA Infection following a procedure, initial encounter; L02.416 Cutaneous abscess of left lower limb; D63.8 Anemia in other chronic diseases classified elsewhere; Z89.511 Acquired absence of right leg below knee; E78.5 Hyperlipidemia, unspecified; I10 Essential (primary) hypertension; G89.29 Other chronic pain; B95.7 Other staphylococcus as the cause of diseases classified elsewhere; F17.210 Nicotine dependence, cigarettes, uncomplicated; Z93.3 Colostomy status; E11.9 Type 2 diabetes mellitus without complications; Z79.4 Long term (current) use of insulin; I73.9 Peripheral vascular disease, unspecified; Z86.73 Personal history of transient ischemic attack (TIA), and cerebral infarction without residual deficits; Z79.82 Long term (current) use of aspirin; Z79.899 Other long term (current) drug therapy
CPT/HCPCS: 36415; 36569; 72192; 73700; 80048; 80053; 80202; 82962; 83036; 84134; 84703; 85025; 85027; 85652; 86140; 87070; 87075; 87077; 87102; 87186; 87205; 87206; 87640; 88304; 88305; 93005; 97116; 97162; 97165; 97530; 97802; 99282; J7050; J7120; A4216

== ENCOUNTER 2018-01-23 13:15 | Inpatient (IN) | payer MEDICAID, SELFPAY ==
--- NOTE | 2018-01-23 13:45 | PCM.HP.COS ---
<Amara Grove - Last Filed: 01/23/18 16:49> History of Present Illness Date of Admission: 01/23/18 Chief Complaint: debility This is a 47 year old right handed female who presents to the rehab unit for rehabilitation after undergoing debridement of a traumatic left ischial/perineal pressure sore, Stage IV. a compromised flap both medially and inferiorly with infected drainage with wound vac placement, on January 20, [address] Guadarrama.Her initial surgery was in [place] on 12/04/17, she sustained a fall onto a rust microwave outside her apartment. 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 She now lives in [place]. She has a past medical history of PVD, HLD, Diabetes Type II, Hypertension and a right BKA. She lives with her and daughter in an apartment with 12 steps to get into the apartment. She was previously completely functionally independent and is admitted to the rehab unit in order to restore her previous level of functional independence. Past Medical History Past Medical History (Chronic Problems): Chronic Problems Pressure sore of left ischium, stage 4 (Chronic) Type 2 diabetes mellitus with other skin ulcer (Chronic) Nonhealing surgical wound (Chronic) left ischial/perineal area and posterior thigh. Hx of right BKA (Chronic) Chronic pain (Chronic) PVD (peripheral vascular disease) (Chronic) HLD (hyperlipidemia) (Chronic) DM2 (diabetes mellitus, type 2) (Chronic) Benign essential HTN (Chronic) Allergies fentanyl Allergy (Verified 01/16/18 22:42) Other morphine Adverse Reaction (Verified 01/16/18 22:42) Upset Stomach Home Medications: Ambulatory Orders Medication Instructions Recorded Aspirin [Aspirin, Baby] 81 mg PO DAILY@0800 04/26/16 Atorvastatin Calcium [Lipitor] 40 mg PO QHS 04/26/16 Baclofen 10 mg PO TID 04/26/16 Clopidogrel Bisulfate [Plavix] 75 mg PO DAILY 04/26/16 Duloxetine Hcl [Cymbalta] 60 mg PO BID 04/26/16 Insulin Aspart [Novolog Flexpen] 0 units SC TIDCM 04/26/16 Insulin Detemir [Levemir FlexPen] 40 units SC QHS 04/26/16 Pantoprazole Sodium [Protonix] 40 mg PO DAILY 04/26/16 Pregabalin [Lyrica] 150 mg PO BID 04/26/16 Ranitidine [Zantac] 150 mg PO BID 04/26/16 Clonazepam [Klonopin] 0.5 mg PO BID 07/02/16 Diclofenac Sodium 50 mg PO BID 12/30/17 Cetirizine HCl [Zyrtec] 10 mg PO DAILY 01/19/18 Ceftriaxone [Rocephin] 1 gm IV Q24 01/23/18 Diazepam [Valium] 5 mg PO BID #15 tab 01/23/18 Docusate Sodium [Colace] 100 mg PO BID 01/23/18 Glucagon 1 mg IM .X1 PRN syringe 01/23/18 Glucerna Shake 120 ml PO 4X/DAY 01/23/18 Insulin Aspart [Novolog Flexpen] See Protocol SC TIDAC 01/23/18 Iron Polysaccharide Complex 150 mg PO DAILYCM 01/23/18 [Ferrex 150] Nicotine Polacrilex [Nicotine Gum] 4 mg PO Q2H PRN PRN gum 01/23/18 Nutritional Supplement [James - 1 packet PO BIDCM 01/23/18 ORANGE FLAVOR] Oxycodone [Oxyir] 10 mg PO Q4H PRN PRN 7 Days #40 01/23/18 tablet Varenicline [Chantix] 1 mg PO BID 01/23/18 proMETHazine tablet [Phenergan 25 mg PO Q4H PRN PRN tablet 01/23/18 tablet] Surgical History: - - right BKA. Multiple debridements to left leg wound. Diverting colostomy. 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 Lives: Spouse/ Significant Other Smoking Status: Heavy Smoker (>10/day) Tobacco Use: Cigarettes Alcohol: None Drugs: None - *Family History Maternal History Items: Diabetes Review of Systems Constitutional: Denies: Chills, Fever, Weight Change HEENT: Denies: Head Aches, Sinus Congestion, Sinus Drainage Cardiovascular: Denies: Chest Pain, Palpitations Respiratory: Denies: Cough, Shortness of breath at rest, Sputum production Gastrointestinal: Denies: Abdominal Pain, Nausea, Vomiting Genitourinary: Denies: Dysuria Musculoskeletal: Denies: Joint Pain, Joint Tenderness Skin: Denies: Rash, Wounds Neurological: Denies: Numbness, Tingling, Focal weakness Psychiatric: Denies: Anxiety, Depression, Homicidal Ideations, Suicidal Ideations Hematologic/ Lymphatic: Denies: Easy Bruising, Easy Bleeding VTE Information - Inpt Only VTE Present on Admission: No VTE Mechan Device Prophylaxis: None VTE Pharm Prophylaxis ordered?: Yes - Physical Exam General: Alert, Oriented x3, Cooperative HEENT: Atraumatic, PERRLA, EOMI, Normocephalic Neck: Supple, No JVD, Negative Carotid Bruits Lungs: Clear to auscultation, Normal air movement Cardiovascular: Regular rate, No murmurs Abdomen: Bowel Sounds Present, Soft, Non Tender Extremities: No edema, Capillary Refill Less than 3 Seconds, - - Right BKA Skin: No rashes, No breakdown Musculoskeletal: No Tenderness to Palpation of Joints or Extremities Neurological: Cranial nerves II-XII grossly intact Psych/Mental Status: Normal Affect, Appropriate, Alert and oriented to time, place, person, mood and affect Finger Stick Blood Glucose 102 Active Medications Acetaminophen (Tylenol) 1,000 mg PO Q8 [facility] Aspirin (Aspirin, Baby) 81 mg PO DAILY@0800 [facility] Atorvastatin Calcium (Lipitor) 40 mg PO QHS [facility] Baclofen (Lioresal) 10 mg PO TID [facility] Bisacodyl (Dulcolax) 10 mg RECTAL .PRN X 1 PRN PRN Reason: Constipation Clonazepam (Klonopin) 0.5 mg PO BID [facility] Clopidogrel Bisulfate (Plavix) 75 mg PO DAILY [facility] Diazepam (Valium) 5 mg PO BID [facility] Diclofenac [facility] ([facility]) [facility] Docusate Sodium (Colace) 100 mg PO BID [facility] Duloxetine HCl (Cymbalta) 60 mg PO BID [facility] Enoxaparin Sodium (Lovenox) 40 mg SC DAILY [facility] Famotidine (Pepcid) 20 mg PO BID [facility] Fentanyl (Duragesic Patch) 12 mcg TRANSDERM. Q3D [facility] Glucagon () 1 mg IM .X1 PRN PRN Reason: Hypoglycemia Ceftriaxone Sodium (Rocephin) 1 gm in 50 mls @ 100 mls/hr IV Q24 [facility] Stop: 02/21/18 10:01 Insulin Detemir (Levemir (Bkc)) 40 units SC QHS [facility] Insulin Human Lispro (Humalog Kwikpen (Bkc)) 0 unit SC ACHS YANDEL PRN Reason: Protocol Loratadine (Claritin) 10 mg PO DAILY [facility] Magnesium Hydroxide (Milk Of Magnesia) 30 ml PO .PRN X 1 PRN PRN Reason: Constipation Nicotine Polacrilex ([place] Nicotine (Pbkc)) 4 mg PO Q2H PRN PRN PRN Reason: Nicotine [place]ving Nutritional Formula (James - [place] Flavor) 1 packet PO BIDCM [facility] Oxycodone HCl (Oxyir) 10 mg PO Q4H PRN PRN PRN Reason: SEVERE PAIN (6-06/17) Pantoprazole Sodium (Protonix) 40 mg PO DAILY [facility] Polysaccharide Iron Complex (Ferrex 150) 150 mg PO DAILYCM [facility] Pregabalin (Lyrica) 150 mg PO BID [facility] Promethazine HCl (Phenergan Tablet) 25 mg PO Q4H PRN PRN PRN Reason: NAUSEA/VOMITING Varenicline (Chantix) 1 mg PO BID [facility] Assessment/Plan Debility status post surgical debridement for infected left inferior gluteal skin flap that was done for 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 Goal of rehab is taoism of prior level of functional independence. Plan: - Physical therapy for gait and balance - Occupational Therapy for ADLs - As needed analgesics - Bowel protocol - DM II continue home medication,Levemir insulin, 22 units BID, Accu-check AC/HS with mild sliding scale insulin - DVT prophylaxis: SCDs, Lovenox - HLD - continue home dose of statin - Anemia 2/2 anemia of chronic disorder vs acute blood loss following surgery => patient on Ferrex - Infected left inferior gluteal fasciocutaneous skin flap: debridement and excisional debridement, on IV Rocephin, James to aid in wound healing, and a wound vac. - Peripheral vascular disease: s/p below right knee amputation. Currently on aspirin, statin and Plavix. - chronic pain syndrome: currently on Lyrica - Tobacco abuse: Started on Chantix. <Evan Clarke - Last Filed: 01/25/18 12:47> History of Present Illness The patient is a 47 year old F [] Past Medical History Allergies fentanyl Allergy (Verified 01/16/18 22:42) Other morphine Adverse Reaction (Verified 01/16/18 22:42) Upset Stomach - Physical Exam Vital Signs Temp Pulse Resp BP Pulse Ox 36.6 C 69 16 99/66 95 01/25/18 07:22 01/25/18 07:22 01/25/18 07:22 01/25/18 07:22 01/25/18 07:22 Oxygen Delivery Method Room Air Weight: 85.3 kg Body Mass Index (BMI) 28.5 Finger Stick Blood Glucose 102 Intake and Output for Last 24 Hours 01/23/18 01/24/18 01/25/18 23:59 23:59 23:59 Intake Total 260 / 260 1000 / 1000 820 / 820 Output Total 1300 / 1300 1800 / 1800 300 / 300 Balance -1040 / -1040 -800 / -800 520 / 520 POC Glucose 01/25/18 01/25/18 01/24/18 11:27 06:51 21:27 POC Glucose 311 H 188 H 310 H 01/24/18 16:56 POC Glucose 295 H
[2018-01-23 13:47] VITALS: BP 116/55; PULSE 70; RESP 16; TEMP 36.6; O2SAT 96; BMI 28.5; BMI 28.6
[2018-01-23] MEDS: oxyCODONE 5 MG Tablet 10 MG PO ×2 (16:52→21:08)
[2018-01-23 17:20] LABS: Bedside Glucose 234 mg/dL (70-110)
[2018-01-23 21:05] VITALS: BP 132/64; PULSE 73; RESP 16; TEMP 36.5; O2SAT 95
[2018-01-23 21:06] LABS: Bedside Glucose 299 mg/dL (70-110)
[2018-01-23] MEDS: Pregabalin 75 MG Capsule 150 MG PO (21:07)
[2018-01-23] MEDS: Acetaminophen 500 MG Tablet 1000 MG PO (21:07)
[2018-01-23] MEDS: Baclofen 10 MG Tablet PO (21:08)
[2018-01-23] MEDS: diazePAM 5 MG Tablet PO (21:08)
[2018-01-23] MEDS: Varenicline 1 MG Tablet PO (21:08)
[2018-01-23] MEDS: Docusate Sodium 100 MG Capsule PO (21:08)
[2018-01-23] MEDS: Atorvastatin Calcium 40 MG Tablet PO (21:08)
[2018-01-23] MEDS: Famotidine 20 MG Tablet PO (21:08)
[2018-01-23] MEDS: DULoxetine Hcl 60 MG Capsule PO (21:09)
[2018-01-23] MEDS: clonazePAM 0.5 MG Tablet PO (21:09)
[2018-01-24] MEDS: oxyCODONE 5 MG Tablet 10 MG PO ×4 (04:31→20:30)
[2018-01-24 05:32] VITALS: O2SAT 97
[2018-01-24] MEDS: Acetaminophen 500 MG Tablet 1000 MG PO ×3 (06:06→21:31)
[2018-01-24 06:55] LABS: Bedside Glucose 71 mg/dL (70-110)
[2018-01-24 07:16] VITALS: O2SAT 98
[2018-01-24 07:42] VITALS: BP 120/69; PULSE 69; RESP 16; TEMP 36.5; O2SAT 96
[2018-01-24] MEDS: Pantoprazole Sodium 40 MG Tablet PO (08:18)
[2018-01-24] MEDS: Enoxaparin 40 MG/0.4 ML Syringe SC (08:18)
[2018-01-24] MEDS: Baclofen 10 MG Tablet PO ×3 (08:18→21:30)
[2018-01-24] MEDS: Iron Polysaccharide Complex 150 MG CAPSULE PO (08:19)
[2018-01-24] MEDS: Docusate Sodium 100 MG Capsule PO ×2 (08:19→21:28)
[2018-01-24] MEDS: Clopidogrel Bisulfate 75 MG Tablet PO (08:19)
[2018-01-24] MEDS: Famotidine 20 MG Tablet PO ×2 (08:19→21:31)
[2018-01-24] MEDS: Aspirin 81 MG TAB.CHEW PO (08:19)
[2018-01-24] MEDS: Loratadine 10 MG Tablet PO (08:19)
[2018-01-24] MEDS: DULoxetine Hcl 60 MG Capsule PO ×2 (08:19→21:29)
[2018-01-24] MEDS: Varenicline 1 MG Tablet PO ×2 (08:19→21:28)
[2018-01-24] MEDS: Pregabalin 75 MG Capsule 150 MG PO ×2 (11:04→21:30)
[2018-01-24] MEDS: clonazePAM 0.5 MG Tablet PO ×2 (11:04→21:29)
[2018-01-24 11:41] LABS: Bedside Glucose 254 mg/dL (70-110)
[2018-01-24] MEDS: Ceftriaxone 1 GM/50 mL Premix Q24 IV (11:54)
[2018-01-24 17:01] LABS: Bedside Glucose 295 mg/dL (70-110)
[2018-01-24] MEDS: Atorvastatin Calcium 40 MG Tablet PO (21:30)
[2018-01-24 21:58] VITALS: BP 130/76; PULSE 86; RESP 16; TEMP 36.6; O2SAT 99
[2018-01-24 22:01] LABS: Bedside Glucose 310 mg/dL (70-110)
--- NOTE | 2018-01-24 22:50 | NURSING ---
pt requesting foods and drinks that are high in sugar such as ice cream, cookies and soda. pt educated on diabetic diet. pt refusing to comply.
[2018-01-25] MEDS: 0.9% NaCl PICC Flush IV ×4 (00:17→21:51)
--- NOTE | 2018-01-25 01:14 | NURSING ---
Flushed PICC line easily with blood return noted.
--- NOTE | 2018-01-25 01:21 | NURSING ---
Reviewed and agree with AUTO RADIATOR MECHANIC documentation and FIMS charting.
[2018-01-25] MEDS: Baclofen 10 MG Tablet PO ×3 (05:58→21:10)
[2018-01-25] MEDS: Acetaminophen 500 MG Tablet 1000 MG PO ×3 (06:02→21:12)
[2018-01-25] MEDS: oxyCODONE 5 MG Tablet 10 MG PO ×4 (06:11→23:24)
[2018-01-25 06:56] LABS: Bedside Glucose 188 mg/dL (70-110)
[2018-01-25 07:15] VITALS: O2SAT 95
[2018-01-25 07:22] VITALS: BP 99/66; PULSE 69; RESP 16; TEMP 36.6; O2SAT 95
[2018-01-25] MEDS: Enoxaparin 40 MG/0.4 ML Syringe SC (07:39)
[2018-01-25] MEDS: Pantoprazole Sodium 40 MG Tablet PO (07:41)
[2018-01-25] MEDS: Pregabalin 75 MG Capsule 150 MG PO ×2 (07:41→21:09)
[2018-01-25] MEDS: Famotidine 20 MG Tablet PO ×2 (07:41→21:09)
[2018-01-25] MEDS: Docusate Sodium 100 MG Capsule PO ×2 (07:41→21:12)
[2018-01-25] MEDS: Loratadine 10 MG Tablet PO (07:41)
[2018-01-25] MEDS: Clopidogrel Bisulfate 75 MG Tablet PO (07:41)
[2018-01-25] MEDS: Iron Polysaccharide Complex 150 MG CAPSULE PO (07:41)
[2018-01-25] MEDS: DULoxetine Hcl 60 MG Capsule PO ×2 (07:41→21:12)
[2018-01-25] MEDS: Aspirin 81 MG TAB.CHEW PO (07:41)
[2018-01-25] MEDS: Varenicline 1 MG Tablet PO ×2 (07:41→21:12)
[2018-01-25] MEDS: clonazePAM 0.5 MG Tablet PO ×2 (07:44→21:11)
[2018-01-25] MEDS: Ceftriaxone 1 GM/50 mL Premix Q24 IV (08:18)
[2018-01-25 11:36] LABS: Bedside Glucose 311 mg/dL (70-110)
--- NOTE | 2018-01-25 12:50 | REHABEVAL_ITS ---
Admission Information Status Changes from Prescreening?: No changes Identified Actual Problem List:: Falls, Skin Intergrity, Pain, ALteration in Cmfrt, Mobility Impaired, Self Care Deficit, Diabetes, Hyperglycemia, Ineffect.D/C Plan r/t Psy Potential Problem List:: DVT, Bleeding, Infection, UTI, Aspiration, Falls, Skin Integrity, Depression Risk of Complications DVT: LMWH, ARIANE Hose, Sequential Compression Device Bleeding: Monitor Lab Values, Nursing to Teach Precautions for anti-coagulation therapy., Wound, if applicable, to be assessed every shift., Stroke patients assessed for lethargy or change in status. Infection: Clinical Staff to Monitor for S/S of infection:, S/S of infection include fever, redness, warmth, etc. Urinary Tract Infection: Monitor for frequency, burning, discomfort, or incontinence., Nursing will obtain urine sample for urinalysis and C&S when ordered. Aspiration: Clinical staff will monitor for coughing, drooling, congestion., Speech will evaluate swallowing and dsyphasia., Nursing will monitor patient swallowing during meals. Falls: Patient will be evaluated for Fall Precautions, Patient will be placed on Fall Precautions as indicated per protocol. Skin Breakdown: Nursing will assess skin daily using assessment tool., Nursing will place on Skin Breakdown Precautions as indicated. Pain: Clinical staff will assess patient's pain level per protocol., Medications will be given, if needed, and the pain level reassessed., Other methods: Massage, distraction, decrease stimulus, etc. used PRN. Plan of Care Patient requires physician specializing in physical medicine and rehab oversight to provide close medical supervision of rehab issues including: Pain Management, Sleep Problems, Bowel and Bladder, Medical and co-morbidity Management, DVT prophylaxis, Rehabilitation Leadership, Coordination of treatment team Patient needs Physical Therapy: For a minimum of 1 hour, At least 5 out of 7 days Patient needs Physical Therapy to improve:: Mobility, Mobility, Mobility, Strengthening, Transfers, Stretching, ROM, Endurance, Stairs, Gait, Balance Patient needs Occupational Therapy: For a minimum of 1 hour, At least 5 out of 7 days Patient needs Occupational Therapy to improve ADL's incl.: Eating, Grooming, Bathing, Dressing, Toileting, Toilet transfers, Community Reintegration, Higher functioning activities, Household tasks, Adaptive Equipment, Splinting, Other activities as determined Patient requires 24/ Rehabilitation Nursing for: Pain Issues, Identifying and preventing risk factors, Monitoring and reporting current medical conditions, Assisting with ambulation, transfer, and all ADL's, Teaching patients about disease process and medications, Family teaching, Providing safe environment, Bowel and Bladder Issues, Skin integrity, Medication Management Patient needs Mail Carrier Technician/ Case Management for: Discharge Planning, Arranging Home Equipment or Services, Family Interventions Patient needs Dietary and Nutrition Services for: Adequate Nutrition, Nutritional Supplements, Nutritional Education Goals Patient will remain: free from falls, or injury at time of discharge. Patient will perform bed mobility at: MOD I level of assist. Patient will complete transfers from bed to chair at: MOD I level of assist. Patient will ambulate: 100 feet, with MOD I assist, with LRD Patient will complete upper body dressing at: MOD I level of assist. Patient will complete lower body dressing at: MOD I level of assist. Patient will complete toileting at: MOD I level of assist. Patient will perform bathing at: MOD I level of assist. Patient will complete grooming at: MOD I level of assist. Patient will complete home management skills at: MOD I level of assist. Patient will achieve: 12 stairs, at MOD I assist Patient will have pain level of: of 3 or less Patient's skin will: remain intact, free from infection. Patient will receive: adequate nutrition. Discharge Planning Pt Prognosis for Sig. Practical Improv. w/in Reasonable Time: Good Anticipated D/C Destination: Home with Outpt Therapy Was Preadmission Assessment Accurate?: Yes
--- NOTE | 2018-01-25 13:17 | NURSING ---
dr murrell aware of elevated glucose levels. patient on now 1800 flaquita diabetic diet, changed sliding scale to now humalog medium dosing and added metformin 500 mg bid. patient aware of these changes.
--- NOTE | 2018-01-25 13:43 | NURSING ---
Addendum entered by Cora Santos 01/25/18 14:13: HOUSEPERSON Itz was present during conversation. Original Note: patient was provided her routine tylenol 1000 mg and baclofen when she asked for pain medication. I told her what she was receiving for pain. She was falling a sleep when talking to this nurse during conversation and had a slight slurred speech. She said ok when she took her routine Tylenol and baclofen. After 10 minutes she asked for her oxyir. This nurse explained to patient that she had received her tylenol and stated I didn't know I took that and I want my oxyir which slight slurred speech continued. no distress noted. Dr. clarke notified which she just seen patient and agreed to wait to give patient prn oxy ir. She is currently also receiving other scheduled pain medications. While talking with Dr. Clarke she was yelling from her room i want my medication and you want to keep it for yourself. I explained that the prn oxyir will be given little bit later once she is fully awake and not falling a sleep during conversation.
--- NOTE | 2018-01-25 14:17 | NURSING ---
increase alertness noted. patient sitting up in chair and not falling a sleep during conversation. Prn oxy ir 10 mg given for pain to buttock/thigh area. rates pain 8/10 and describes pain as a ache. patient sitting up in chair coloring. Patient c/o of not able to get up by self in room. Offered taking a walk in hallway x 2, patient refused. Itz MAYORGA present. Ben copy supervisor aware.
--- NOTE | 2018-01-25 15:30 | NURSING ---
patient requesting another diet coke to drink with a snack. Patient just finished drinking 1 can of diet coke. Glucose level rechecked 302. This nurse explained to patient that I was unable to give her another diet coke d/t elevated glucose level and explained the sliding scale and metformin does not start until supper time. patient verbalized understanding, Itz MAYORGA present.
[2018-01-25 15:31] LABS: Bedside Glucose 302 mg/dL (70-110)
[2018-01-25 16:35] LABS: Bedside Glucose 272 mg/dL (70-110)
[2018-01-25] MEDS: Insulin Lispro 100 UNIT/ML INSULN.PEN SC ×2 (16:51→21:11)
--- NOTE | 2018-01-25 17:15 | NURSING ---
patient remains alert talking with family, patient is cooperative and pleasant to staff.
--- NOTE | 2018-01-25 18:49 | NURSING ---
patient requested prn oxyir 10 mg for pain level 8/10 to buttock/thigh area. patient sitting up in bed coloring and watching t.v. no acute distress noted.
[2018-01-25 20:56] VITALS: BP 121/63; PULSE 99; RESP 16; TEMP 36.8; O2SAT 100
[2018-01-25] MEDS: Atorvastatin Calcium 40 MG Tablet PO (21:10)
[2018-01-25 21:11] LABS: Bedside Glucose 300 mg/dL (70-110)
--- NOTE | 2018-01-26 03:52 | NURSING ---
PA off multiple times this shift and replaced, patient educated as to why this is needed. will continue to monitor. michael
[2018-01-26] MEDS: Baclofen 10 MG Tablet PO ×3 (05:37→21:28)
[2018-01-26] MEDS: Enoxaparin 40 MG/0.4 ML Syringe SC (05:37)
[2018-01-26] MEDS: oxyCODONE 5 MG Tablet 10 MG PO ×4 (05:39→20:18)
[2018-01-26 07:01] LABS: Bedside Glucose 215 mg/dL (70-110)
[2018-01-26 07:23] VITALS: BP 115/66; PULSE 81; RESP 17; TEMP 36.7; O2SAT 99
[2018-01-26] MEDS: proMETHazine 25 MG Tablet PO (07:53)
[2018-01-26] MEDS: Insulin Lispro 100 UNIT/ML INSULN.PEN SC ×4 (07:54→22:02)
--- NOTE | 2018-01-26 10:22 | PCM.PN.NEU ---
Subjective: Staffed in team meeting. family was not at bedside. Questions answered. With Physical therapy, there has been a physical decline in her ability to get in and out of bed, prior to this admission on rehab she was able stand by assist and now she is contact guard. She is contact guard to stand, she was able to walk at least 200 to 350 feet with a single point cane she does occasionally have loss of balance requiring contact guard for safety purposes. This is also a decline for her, prior to this she was walking with out any loss of balance. With Occupational therapy, she is able to do all her own personal care. she does require minimal assists with putting on her pants and shoes, due to the wound vac on her left leg, and buttocks. With Nursing, she has been very lethargic, and sleepy, she had some nausea this morning, and required Phenergan. We discontinued her fentanyl patch, her Voltaren, and decreased her Klonopin to 0.25 mg BID. Will obtain a CBC with Diff, CMP, Ammonia Level, Sed rate and a urinalysis. Other mcdowell she is Neurologically intact. Will re-asses later today to see if she is more alert, now that the medications has been adjusted. - Physical Exam General: Alert, Oriented x3, Cooperative HEENT: Atraumatic, PERRLA, EOMI, Normocephalic Neck: Supple, No JVD, Negative Carotid Bruits Lungs: Clear to auscultation, Normal air movement Cardiovascular: Regular rate, No murmurs Abdomen: Bowel Sounds Present, Soft, Non Tender Extremities: No edema, Capillary Refill Less than 3 Seconds Skin: No rashes, No breakdown Musculoskeletal: No Tenderness to Palpation of Joints or Extremities Neurological: Cranial nerves II-XII grossly intact, Neuro grossly intact, Motor Exam 5/5 strength throughout Psych/Mental Status: Normal Affect, Appropriate, Alert and oriented to time, place, person, mood and affect Vital Signs Temp Pulse Resp BP Pulse Ox 98.1 F 81 17 115/66 99 01/26/18 07:23 01/26/18 07:23 01/26/18 07:23 01/26/18 07:23 01/26/18 07:23 Oxygen Delivery Method Room Air Weight: 85.3 kg Body Mass Index (BMI) 28.5 Finger Stick Blood Glucose 102 Intake and Output for Last 24 Hours 01/24/18 01/25/18 01/26/18 23:59 23:59 23:59 Intake Total 1000 / 1000 1060 / 1060 980 / 980 Output Total 1800 / 1800 300 / 300 760 / 760 Balance -800 / -800 760 / 760 220 / 220 POC Glucose 01/26/18 01/25/18 01/25/18 06:57 21:05 16:29 POC Glucose 215 H 300 H 272 H 01/25/18 01/25/18 15:25 11:27 POC Glucose 302 H 311 H Active Medications Acetaminophen (Tylenol) 1,000 mg PO Q8 [facility] Last Admin: 01/26/18 06:30 Dose: Not Given Aspirin (Aspirin, Baby) 81 mg PO DAILY@0800 [facility] Last Admin: 01/25/18 07:41 Dose: 81 mg Atorvastatin Calcium (Lipitor) 40 mg PO QHS [facility] Last Admin: 01/25/18 21:10 Dose: 40 mg Baclofen (Lioresal) 10 mg PO TID [facility] Last Admin: 01/26/18 05:37 Dose: 10 mg Bisacodyl (Dulcolax) 10 mg RECTAL .PRN X 1 PRN PRN Reason: Constipation Clonazepam (Klonopin) 0.25 mg PO BID [facility] Clopidogrel Bisulfate (Plavix) 75 mg PO DAILY [facility] Last Admin: 01/25/18 07:41 Dose: 75 mg Docusate Sodium (Colace) 100 mg PO BID [facility] Last Admin: 01/25/18 21:12 Dose: 100 mg Duloxetine HCl (Cymbalta) 60 mg PO BID [facility] Last Admin: 01/25/18 21:12 Dose: 60 mg Enoxaparin Sodium (Lovenox) 40 mg SC DAILY@0600 [facility] Last Admin: 01/26/18 05:37 Dose: 40 mg Famotidine (Pepcid) 20 mg PO BID [facility] Last Admin: 01/25/18 21:09 Dose: 20 mg Glucagon () 1 mg IM .X1 PRN PRN Reason: Hypoglycemia Heparin Sodium (Beef Lung) (Heparin 500 Unit/5 Ml (100/Ml)) 500 unit IV UD PRN PRN Reason: HEPARIN FLUSH Ceftriaxone Sodium (Rocephin) 1 gm in 50 mls @ 100 mls/hr IV Q24 [facility] Stop: 02/21/18 10:01 Last Admin: 01/25/18 08:18 Dose: 100 mls/hr Insulin Detemir (Levemir (Bkc)) 40 units SC QHS [facility] Last Admin: 01/25/18 21:10 Dose: 40 u Insulin Human Lispro (Humalog Kwikpen (Bkc)) 0 unit SC ACHS [facility] PRN Reason: Protocol Last Admin: 01/26/18 07:54 Dose: 2 units Loratadine (Claritin) 10 mg PO DAILY [facility] Last Admin: 01/25/18 07:41 Dose: 10 mg Magnesium Hydroxide (Milk Of Magnesia) 30 ml PO .PRN X 1 PRN PRN Reason: Constipation [facility] Last Admin: 01/25/18 16:52 Dose: 500 mg Nicotine Polacrilex (Rugby Nicotine (Pbkc)) 4 mg PO Q2H PRN PRN PRN Reason: Nicotine Craving Nutritional Formula (James - [place] Flavor) [facility] Last Admin: 01/25/18 16:53 Dose: 1 packet Ondansetron HCl (Zofran) 4 mg IV Q6H PRN PRN PRN Reason: NAUSEA Oxycodone HCl (Oxyir) 10 mg PO Q4H PRN PRN PRN Reason: SEVERE PAIN (6-10/10) Last Admin: 01/26/18 05:39 Dose: 10 mg Pantoprazole Sodium (Protonix) 40 mg PO DAILY [facility] Last Admin: 01/25/18 07:41 Dose: 40 mg Polysaccharide Iron Complex (Ferrex 150) [facility] Last Admin: 01/25/18 07:41 Dose: 150 mg Pregabalin (Lyrica) 150 mg PO BID [facility] Last Admin: 01/25/18 21:09 Dose: 150 mg Sodium Chloride () 10 - 20 ml IV UD PRN PRN Reason: PICC FLUSH Last Admin: 01/25/18 21:51 Dose: 10 ml Varenicline (Chantix) 1 mg PO BID [facility] Last Admin: 01/25/18 21:12 Dose: 1 mg Medical Necessity - Tobacco Use Smoking Status: Heavy Smoker (>10/day) Tobacco Use: Cigarettes Assessment/Plan Debility status post surgical debridement for infected left inferior gluteal skin flap that was done for 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 Goal of rehab is taoist of prior level of functional independence. Plan: - Physical therapy for gait and balance - Occupational Therapy for ADLs - As needed analgesics - Bowel protocol - DM II continue home medication,Levemir insulin, 22 units BID, Accu-check AC/HS with mild sliding scale insulin - DVT prophylaxis: SCDs, Lovenox - HLD - continue home dose of statin - Anemia 2/2 anemia of chronic disorder vs acute blood loss following surgery => patient on Ferrex - Infected left inferior gluteal fasciocutaneous skin flap: debridement and excisional debridement, on IV Rocephin, James to aid in wound healing, and a wound vac. - Peripheral vascular disease: s/p below right knee amputation. Currently on aspirin, statin and Plavix. - chronic pain syndrome: currently on Lyrica - Tobacco abuse: Started on Chantix. - Labs => CBC with Diff, CMP, Sed rate, Ammonia level, and Urinalysis - D/c Fentanyl patch, Voltaren, and decrease the Klonopin to 0.25mg BID
--- NOTE | 2018-01-26 10:37 | PN.NEURO_ITS ---
Subjective: Staffed in team meeting. family was not at bedside. Questions answered. With Physical therapy, there has been a physical decline in her ability to get in and out of bed, prior to this admission on rehab she was able stand by assist and now she is contact guard. She is contact guard to stand, she was able to walk at least 200 to 350 feet with a single point cane she does occasionally have loss of balance requiring contact guard for safety purposes. This is also a decline for her, prior to this she was walking with out any loss of balance. With Occupational therapy, she is able to do all her own personal care. she does require minimal assists with putting on her pants and shoes, due to the wound vac on her left leg, and buttocks. With Nursing, she has been very lethargic, and sleepy, she had some nausea this morning, and required Phenergan. We discontinued her fentanyl patch, her Voltaren, and decreased her Klonopin to 0.25 mg BID. Will obtain a CBC with Diff, CMP, Ammonia Level, Sed rate and a urinalysis. Other mcdowell she is Neurologically intact. Will re-asses later today to see if she is more alert, now that the medications has been adjusted. - Physical Exam General: Alert, Oriented x3, Cooperative HEENT: Atraumatic, PERRLA, EOMI, Normocephalic Neck: Supple, No JVD, Negative Carotid Bruits Lungs: Clear to auscultation, Normal air movement Cardiovascular: Regular rate, No murmurs Abdomen: Bowel Sounds Present, Soft, Non Tender Extremities: No edema, Capillary Refill Less than 3 Seconds Skin: No rashes, No breakdown Musculoskeletal: No Tenderness to Palpation of Joints or Extremities Neurological: Cranial nerves II-XII grossly intact, Neuro grossly intact, Motor Exam 5/5 strength throughout Psych/Mental Status: Normal Affect, Appropriate, Alert and oriented to time, place, person, mood and affect Vital Signs Temp Pulse Resp BP Pulse Ox 98.1 F 81 17 115/66 99 01/26/18 07:23 01/26/18 07:23 01/26/18 07:23 01/26/18 07:23 01/26/18 07:23 Oxygen Delivery Method Room Air Weight: 85.3 kg Body Mass Index (BMI) 28.5 Finger Stick Blood Glucose 102 Intake and Output for Last 24 Hours 01/24/18 01/25/18 01/26/18 23:59 23:59 23:59 Intake Total 1000 / 1000 1060 / 1060 980 / 980 Output Total 1800 / 1800 300 / 300 760 / 760 Balance -800 / -800 760 / 760 220 / 220 POC Glucose 01/26/18 01/25/18 01/25/18 06:57 21:05 16:29 POC Glucose 215 H 300 H 272 H 01/25/18 01/25/18 15:25 11:27 POC Glucose 302 H 311 H Active Medications Acetaminophen (Tylenol) 1,000 mg PO Q8 [facility] Last Admin: 01/26/18 06:30 Dose: Not Given Aspirin (Aspirin, Baby) 81 mg PO DAILY@0800 [facility] Last Admin: 01/25/18 07:41 Dose: 81 mg Atorvastatin Calcium (Lipitor) 40 mg PO QHS [facility] Last Admin: 01/25/18 21:10 Dose: 40 mg Baclofen (Lioresal) 10 mg PO TID [facility] Last Admin: 01/26/18 05:37 Dose: 10 mg Bisacodyl (Dulcolax) 10 mg RECTAL .PRN X 1 PRN PRN Reason: Constipation Clonazepam (Klonopin) 0.25 mg PO BID [facility] Clopidogrel Bisulfate (Plavix) 75 mg PO DAILY [facility] Last Admin: 01/25/18 07:41 Dose: 75 mg Docusate Sodium (Colace) 100 mg PO BID [facility] Last Admin: 01/25/18 21:12 Dose: 100 mg Duloxetine HCl (Cymbalta) 60 mg PO BID [facility] Last Admin: 01/25/18 21:12 Dose: 60 mg Enoxaparin Sodium (Lovenox) 40 mg SC DAILY@0600 [facility] Last Admin: 01/26/18 05:37 Dose: 40 mg Famotidine (Pepcid) 20 mg PO BID [facility] Last Admin: 01/25/18 21:09 Dose: 20 mg Glucagon () 1 mg IM .X1 PRN PRN Reason: Hypoglycemia Heparin Sodium (Beef Lung) (Heparin 500 Unit/5 Ml (100/Ml)) 500 unit IV UD PRN PRN Reason: HEPARIN FLUSH Ceftriaxone Sodium (Rocephin) 1 gm in 50 mls @ 100 mls/hr IV Q24 [facility] Stop: 02/21/18 10:01 Last Admin: 01/25/18 08:18 Dose: 100 mls/hr Insulin Detemir (Levemir (Bkc)) 40 units SC QHS [facility] Last Admin: 01/25/18 21:10 Dose: 40 u Insulin Human Lispro (Humalog Kwikpen (Bkc)) 0 unit SC ACHS [facility] PRN Reason: Protocol Last Admin: 01/26/18 07:54 Dose: 2 units Loratadine (Claritin) 10 mg PO DAILY [facility] Last Admin: 01/25/18 07:41 Dose: 10 mg Magnesium Hydroxide (Milk Of Magnesia) 30 ml PO .PRN X 1 PRN PRN Reason: Constipation [facility]) [facility] Admin: 01/25/18 16:52 Dose: 500 mg Nicotine Polacrilex (Rugby Nicotine (Pbkc)) 4 mg PO Q2H PRN PRN PRN Reason: Nicotine Craving Nutritional Formula (James - [place] Flavor) [facility] Last Admin: 01/25/18 16:53 Dose: 1 packet Ondansetron HCl (Zofran) 4 mg IV Q6H PRN PRN PRN Reason: NAUSEA Oxycodone HCl (Oxyir) 10 mg PO Q4H PRN PRN PRN Reason: SEVERE PAIN (6-10/10) Last Admin: 01/26/18 05:39 Dose: 10 mg Pantoprazole Sodium (Protonix) 40 mg PO DAILY [facility] Last Admin: 01/25/18 07:41 Dose: 40 mg Polysaccharide Iron Complex (Ferrex 150) [facility] Last Admin: 01/25/18 07:41 Dose: 150 mg Pregabalin (Lyrica) 150 mg PO BID [facility] Last Admin: 01/25/18 21:09 Dose: 150 mg Sodium Chloride () 10 - 20 ml IV UD PRN PRN Reason: PICC FLUSH Last Admin: 01/25/18 21:51 Dose: 10 ml Varenicline (Chantix) 1 mg PO BID [facility] Last Admin: 01/25/18 21:12 Dose: 1 mg Medical Necessity - Tobacco Use Smoking Status: Heavy Smoker (>10/day) Tobacco Use: Cigarettes Assessment/Plan Debility status post surgical debridement for infected left inferior gluteal skin flap that was done for 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 Goal of rehab is orthodoxy of prior level of functional independence. Plan: - Physical therapy for gait and balance - Occupational Therapy for ADLs - As needed analgesics - Bowel protocol - DM II continue home medication,Levemir insulin, 22 units BID, Accu-check AC/ HS with mild sliding scale insulin - DVT prophylaxis: SCDs, Lovenox - HLD - continue home dose of statin - Anemia 2/2 anemia of chronic disorder vs acute blood loss following surgery = > patient on Ferrex - Infected left inferior gluteal fasciocutaneous skin flap: debridement and excisional debridement, on IV Rocephin, James to aid in wound healing, and a wound vac. - Peripheral vascular disease: s/p below right knee amputation. Currently on aspirin, statin and Plavix. - chronic pain syndrome: currently on Lyrica - Tobacco abuse: Started on Chantix. - Labs => CBC with Diff, CMP, Sed rate, Ammonia level, and Urinalysis - D/c Fentanyl patch, Voltaren, and decrease the Klonopin to 0.25mg BID
[2018-01-26 11:15] LABS: Bedside Glucose 200 mg/dL (70-110)
[2018-01-26] MEDS: clonazePAM 0.5 MG Tablet 0.25 MG PO ×2 (11:29→21:30)
[2018-01-26] MEDS: Clopidogrel Bisulfate 75 MG Tablet PO (11:29)
[2018-01-26] MEDS: Pantoprazole Sodium 40 MG Tablet PO (11:29)
[2018-01-26] MEDS: Famotidine 20 MG Tablet PO ×2 (11:29→21:27)
[2018-01-26] MEDS: Docusate Sodium 100 MG Capsule PO ×2 (11:30→21:31)
[2018-01-26] MEDS: DULoxetine Hcl 60 MG Capsule PO ×2 (11:30→21:31)
[2018-01-26] MEDS: Iron Polysaccharide Complex 150 MG CAPSULE PO (11:31)
[2018-01-26] MEDS: Varenicline 1 MG Tablet PO ×2 (11:31→21:31)
[2018-01-26] MEDS: Aspirin 81 MG TAB.CHEW PO (11:31)
[2018-01-26] MEDS: Loratadine 10 MG Tablet PO (11:32)
[2018-01-26] MEDS: Ceftriaxone 1 GM/50 mL Premix Q24 IV (11:32)
[2018-01-26] MEDS: Pregabalin 75 MG Capsule 150 MG PO ×2 (11:34→21:27)
--- NOTE | 2018-01-26 12:08 | PCM.PN.BLA ---
Progress Note Postop #6 Patient had surgery on 01/20/18 where she underwent surgical preparation left ischial/perineal pressure sore flap wound with inferior extension onto posterior thigh with incision and drainage and excisional debridement infection abscess (252 cm2). A VAC has been placed. She is progressing with her therapy. She is on Ceftriaxone for Staphylococcus. Will continue that until mid February. Upon discharge, continue the VAC and Ceftriaxone and [facility]up [facility] in 2-3 weeks.
--- NOTE | 2018-01-26 12:13 | CASEMGMT ---
Team meeting held today with pt present. Team discussed with pt changes to treatment plan to improve physical well being. Pt agreeable to continue with treatment plan and with therapy and plans to return home when medically and physically ready. NAYAN explained to pt and team that insurance auth has been given through 01/29 with an update due on that day. Will continue with treatment at this time and reteam next week. NAYAN offered to call pt family with update from team meeting and pt declined stating she will let them know. NAYAN met with Dr. Guadarrama who states pt will go home with IV antibiotics and wound vac. Pt will require home health longterm to assist with this. NAYAN will make arrangements when d/c date is set. ELADIO Zendejas
[2018-01-26 12:25] LABS: Absolute Lymphocyte Count 1.35 X10^3/ul (0.83-4.51); Absolute Neutrophil Count 4.8 X10^3/uL (2.0-7.7); Basophil# 0.05 X10^3/uL; Basophil% 0.7 % (0-1); Eosinophil# 0.36 X10^3/uL; Eosinophils% 5.2 % (0-5); Hematocrit 31.2 % (37-47); Hemoglobin 10.1 g/dl (12.0-15.0); Lymphocyte # 1.35 X10^3/ul (4.0); Lymphocyte % 19.6 % (19-41); Mean Corp Hgb Conc 32.4 g/gl (32-36); Mean Corpuscular Hgb 29.7 pg (27.0-32.0); Mean Corpuscular Volume 91.8 fL (81-99); Mean Platelet Vol. 9.8 fl (6.2-12.0); Monocyte# 0.35 X10^3/uL; Monocyte% 5.1 % (0-10); Neutrophil # 4.78 X10^3/uL (2.7-7.7); Neutrophil % 69.3 % (47-70); Platelet Count 310 K/mm3 (150-450); RBC Distribution Width CV 13.1 % (11.6-14.6); RBC Distribution Width SD 43.9 fl (35.1-43.9); White Blood Count 6.9 K/mm3 (4.4-11.0)
[2018-01-26 12:38] LABS: POSITIVE COUNT NO; POSITIVE DIFFERENTIAL NO; POSITIVE MORPHOLOGY NO
[2018-01-26 12:39] LABS: ALB/GLOB Ratio 0.7 RATIO (0.9-2.4); AST(SGOT) 98 U/L (15-37); Alanine Aminotransfer ALT/SGPT 148 U/L (13-56); Albumin, Serum 2.8 g/dL (3.2-5.0); Alkaline Phosphatase 238 U/L (45-117); Anion Gap 8 (5-15); BUN 19 mg/dL (7-18); BUN/Creat Ratio 22.2 RATIO (10-20); Calcium,Total 8.6 mg/dL (8.5-10.1); Chloride 106 mmol/L (98-107); Creatinine, Serum 0.86 mg/dL (0.55-1.02); EST Glomerular Filtration Rate 76 mL/min (>60); Est Glom Filt Rate - Afr Amer 92 mL/min (>60); Estimated Creatinine Clearance 83.33 ml/min; Globulin 4.2 g/dL (2.2-4.2); Glucose 209 mg/dL (74-106); Potassium 4.2 mmol/L (3.5-5.1); Sodium Level 143 mmol/L (136-145)
[2018-01-26 12:46] LABS: Erythrocyte Sedimentation Rate 56 mm/hr (0-20)
[2018-01-26] MEDS: Acetaminophen 500 MG Tablet 1000 MG PO ×2 (14:37→21:26)
--- NOTE | 2018-01-26 15:35 | NURSING ---
wound photo: left posterior thigh/ischium/perineal area
[2018-01-26 16:31] LABS: Bedside Glucose 227 mg/dL (70-110)
[2018-01-26 19:52] VITALS: BP 115/56; PULSE 77; RESP 16; TEMP 36.5; O2SAT 98
[2018-01-26] MEDS: 0.9% NaCl PICC Flush IV (21:32)
[2018-01-26 23:20] LABS: Bedside Glucose 275 mg/dL (70-110)
[2018-01-27] MEDS: Acetaminophen 500 MG Tablet 1000 MG PO ×3 (05:20→23:03)
[2018-01-27] MEDS: Enoxaparin 40 MG/0.4 ML Syringe SC (05:21)
[2018-01-27] MEDS: Baclofen 10 MG Tablet PO ×3 (05:22→22:27)
[2018-01-27 06:40] LABS: Bedside Glucose 191 mg/dL (70-110)
[2018-01-27 07:00] LABS: Bacteria 0 SEEN /hpf (None Seen); Mucous, Urine 0 SEEN /hpf (<or=2+); Red Blood Cells-Urine 0 SEEN /hpf (0-5)
[2018-01-27 07:12] LABS: Color, Urine Yellow (Yellow); Glucose, Dipstick 50 mg/dl (Normal); Ketone-Dipstick Negative (Negative); Leukocyte Esterase-Dipstick 25 /ul (Negative); Nitrite-Dipstick Negative (Negative); Occult Blood-Urine Negative /ul (Negative); Protein-Dipstick Negative (Negative); Urine Bilirubin Dipstick Negative (Negative); Urine Clarity Clear (Clear); Urine Urobilinogen Normal (Normal)
[2018-01-27 07:20] LABS: Squamous Epithelial Cells - UA 5-10 SEEN /hpf (5-10); White Blood Cells 0-5 SEEN /hpf (0-5)
[2018-01-27] MEDS: oxyCODONE 5 MG Tablet 10 MG PO ×4 (07:30→22:26)
[2018-01-27 07:32] VITALS: BP 125/70; PULSE 67; RESP 16; TEMP 36.6; O2SAT 98
--- NOTE | 2018-01-27 07:58 | NURSING ---
Patient had a few leaks last evening with the wound VAC. nursing states that patient tends to pick at the drape near the anal opening. removed the drape that had been placed over the anal opening onto the other thigh. cleansed skin with NS and patted dry. applied another small piece of black foam into the wound and covered with drape. Good seal noted at 150mmHg low continuous suction. will need to continue this monitor this area. pt tolerated well. nursing staff in to change PICC dressing at this time.
[2018-01-27] MEDS: Pantoprazole Sodium 40 MG Tablet PO (08:24)
[2018-01-27] MEDS: Famotidine 20 MG Tablet PO ×2 (08:24→22:27)
[2018-01-27] MEDS: Varenicline 1 MG Tablet PO ×2 (08:25→22:31)
[2018-01-27] MEDS: Docusate Sodium 100 MG Capsule PO ×2 (08:25→22:31)
[2018-01-27] MEDS: Iron Polysaccharide Complex 150 MG CAPSULE PO (08:25)
[2018-01-27] MEDS: DULoxetine Hcl 60 MG Capsule PO ×2 (08:25→22:30)
[2018-01-27] MEDS: Insulin Lispro 100 UNIT/ML INSULN.PEN SC ×4 (08:25→22:29)
[2018-01-27] MEDS: Clopidogrel Bisulfate 75 MG Tablet PO (08:25)
[2018-01-27] MEDS: Aspirin 81 MG TAB.CHEW PO (08:25)
[2018-01-27] MEDS: Loratadine 10 MG Tablet PO (08:25)
[2018-01-27] MEDS: Pregabalin 75 MG Capsule 150 MG PO ×2 (10:51→22:27)
[2018-01-27] MEDS: clonazePAM 0.5 MG Tablet 0.25 MG PO ×2 (10:51→22:28)
[2018-01-27 11:16] LABS: Bedside Glucose 172 mg/dL (70-110)
[2018-01-27] MEDS: Ceftriaxone 1 GM/50 mL Premix Q24 IV (11:39)
[2018-01-27] MEDS: Ondansetron 8 MG Tablet PO (12:10)
[2018-01-27 17:10] LABS: Bedside Glucose 235 mg/dL (70-110)
[2018-01-27 19:21] VITALS: BP 129/71; PULSE 71; RESP 18; TEMP 36.7; O2SAT 100
[2018-01-27 22:41] LABS: Bedside Glucose 223 mg/dL (70-110)
[2018-01-27] MEDS: 0.9% NaCl PICC Flush IV (22:43)
[2018-01-28] MEDS: oxyCODONE 5 MG Tablet 10 MG PO ×5 (06:38→23:44)
[2018-01-28] MEDS: Acetaminophen 500 MG Tablet 1000 MG PO ×3 (06:40→21:19)
[2018-01-28] MEDS: Enoxaparin 40 MG/0.4 ML Syringe SC (06:40)
[2018-01-28] MEDS: Baclofen 10 MG Tablet PO ×3 (06:41→21:21)
[2018-01-28 07:10] LABS: Bedside Glucose 146 mg/dL (70-110)
[2018-01-28 07:43] VITALS: BP 117/69; PULSE 77; RESP 12; TEMP 36.7; O2SAT 99
[2018-01-28] MEDS: Iron Polysaccharide Complex 150 MG CAPSULE PO (08:07)
[2018-01-28] MEDS: Famotidine 20 MG Tablet PO ×2 (08:07→21:20)
[2018-01-28] MEDS: Docusate Sodium 100 MG Capsule PO ×2 (08:07→21:24)
[2018-01-28] MEDS: Aspirin 81 MG TAB.CHEW PO (08:07)
[2018-01-28] MEDS: Loratadine 10 MG Tablet PO (09:08)
[2018-01-28] MEDS: Varenicline 1 MG Tablet PO ×2 (09:08→21:24)
[2018-01-28] MEDS: Clopidogrel Bisulfate 75 MG Tablet PO (09:08)
[2018-01-28] MEDS: DULoxetine Hcl 60 MG Capsule PO ×2 (09:08→21:24)
[2018-01-28] MEDS: Pantoprazole Sodium 40 MG Tablet PO (09:08)
[2018-01-28] MEDS: clonazePAM 0.5 MG Tablet 0.25 MG PO ×2 (09:09→21:21)
[2018-01-28] MEDS: 0.9% NaCl PICC Flush IV ×2 (09:25→21:36)
[2018-01-28] MEDS: Pregabalin 75 MG Capsule 150 MG PO ×2 (09:27→21:20)
[2018-01-28] MEDS: Ceftriaxone 1 GM/50 mL Premix Q24 IV (09:27)
--- NOTE | 2018-01-28 09:55 | PN.NEURO_ITS ---
Subjective: Patient seen and examined. Patient is more awake this morning, but she is experiencing more discomfort. Consult out to pain management to assist with her pain issues. Dr. Ramirez saw the patient on 01/26 and indicated no new orders at this time. Her LFTs are abnormal, holding her Lipitor, will discuss with the Hospitalist on a plan of care to address this issue. She is tolerating therapy, No Issues with GI/. - Physical Exam General: Alert, Oriented x3, Cooperative HEENT: Atraumatic, PERRLA, EOMI, Normocephalic Neck: Supple, No JVD, Negative Carotid Bruits Lungs: Clear to auscultation, Normal air movement Cardiovascular: Regular rate, No murmurs Abdomen: Bowel Sounds Present, Soft, Non Tender Extremities: No edema, Capillary Refill Less than 3 Seconds Skin: No rashes, No breakdown Musculoskeletal: No Tenderness to Palpation of Joints or Extremities Neurological: Cranial nerves II-XII grossly intact Psych/Mental Status: Normal Affect, Appropriate, Alert and oriented to time, place, person, mood and affect Vital Signs Temp Pulse Resp BP Pulse Ox 98.1 F 77 12 117/69 99 01/28/18 07:43 01/28/18 07:43 01/28/18 07:43 01/28/18 07:43 01/28/18 07:43 Oxygen Delivery Method Room Air Weight: 84.5 kg Body Mass Index (BMI) 28.5 Finger Stick Blood Glucose 102 Intake and Output for Last 24 Hours 01/26/18 01/27/18 01/28/18 23:59 23:59 23:59 Intake Total 1540 / 1540 1580 / 1580 700 / 700 Output Total 760 / 760 400 / 400 Balance 780 / 780 1580 / 1580 300 / 300 POC Glucose 01/28/18 01/27/18 01/27/18 06:37 22:21 17:07 POC Glucose 146 H 223 H 235 H 01/27/18 11:11 POC Glucose 172 H Active Medications Acetaminophen (Tylenol) 1,000 mg PO Q8 [facility] Last Admin: 01/28/18 06:40 Dose: 1,000 mg Aspirin (Aspirin, Baby) 81 mg PO DAILY@0800 [facility] Last Admin: 01/28/18 08:07 Dose: 81 mg Baclofen (Lioresal) 10 mg PO TID [facility] Last Admin: 01/28/18 06:41 Dose: 10 mg Bisacodyl (Dulcolax) 10 mg RECTAL .PRN X 1 PRN PRN Reason: Constipation Clonazepam (Klonopin) 0.25 mg PO BID [facility] Last Admin: 01/28/18 09:09 Dose: 0.25 mg Clopidogrel Bisulfate (Plavix) 75 mg PO DAILY [facility] Last Admin: 01/28/18 09:08 Dose: 75 mg Dextrose (D50w Syringe) 0 gm IV X1 PRN; Protocol PRN Reason: Hypoglycemia Docusate Sodium (Colace) 100 mg PO BID [facility] Last Admin: 01/28/18 08:07 Dose: 100 mg Duloxetine HCl (Cymbalta) 60 mg PO BID [facility] Last Admin: 01/28/18 09:08 Dose: 60 mg Enoxaparin Sodium (Lovenox) 40 mg SC DAILY@0600 [facility] Last Admin: 01/28/18 06:40 Dose: 40 mg Famotidine (Pepcid) 20 mg PO BID [facility] Last Admin: 01/28/18 08:07 Dose: 20 mg Glucagon () 1 mg IM .X1 PRN PRN Reason: Hypoglycemia Heparin Sodium (Beef Lung) (Heparin 500 Unit/5 Ml (100/Ml)) 500 unit IV UD PRN PRN Reason: HEPARIN FLUSH Ceftriaxone Sodium (Rocephin) 1 gm in 50 mls @ 100 mls/hr IV Q24 [facility] Stop: 02/21/18 10:01 Last Admin: 01/28/18 09:27 Dose: 100 mls/hr Insulin Detemir (Levemir (Bkc)) 40 units SC QHS [facility] Last Admin: 01/27/18 22:27 Dose: 40 u Insulin Human Lispro (Humalog Kwikpen (Bkc)) 0 unit SC ACHS [facility] PRN Reason: Protocol Last Admin: 01/28/18 06:39 Dose: Not Given Loratadine (Claritin) 10 mg PO DAILY [facility] Last Admin: 01/28/18 09:08 Dose: 10 mg Magnesium Hydroxide (Milk Of Magnesia) 30 ml PO .PRN X 1 PRN PRN Reason: Constipation [facility] Last Admin: 01/28/18 08:07 Dose: 500 mg Nicotine Polacrilex (Rugby Nicotine (Pbkc)) 4 mg PO Q2H PRN PRN PRN Reason: Nicotine Craving Nutritional Formula (James - [place] Flavor) [facility] Last Admin: 01/28/18 08:08 Dose: 1 packet Ondansetron HCl (Zofran) 4 mg IV Q6H PRN PRN PRN Reason: NAUSEA Ondansetron HCl (Zofran) 8 mg PO Q8H PRN PRN PRN Reason: NAUSEA Last Admin: 01/27/18 12:10 Dose: 8 mg Oxycodone HCl (Oxyir) 10 mg PO Q4H PRN PRN PRN Reason: SEVERE PAIN (6-10/10) Last Admin: 01/28/18 06:38 Dose: 10 mg Pantoprazole Sodium (Protonix) 40 mg PO DAILY [facility] Last Admin: 01/28/18 09:08 Dose: 40 mg Polysaccharide Iron Complex (Ferrex 150) [facility] Last Admin: 01/28/18 08:07 Dose: 150 mg Pregabalin (Lyrica) 150 mg PO BID [facility] Last Admin: 01/28/18 09:27 Dose: 150 mg Sodium Chloride () 10 - 20 ml IV UD PRN PRN Reason: PICC FLUSH Last Admin: 01/27/18 22:43 Dose: 10 ml Varenicline (Chantix) 1 mg PO BID [facility] Last Admin: 01/28/18 09:08 Dose: 1 mg Medical Necessity - Tobacco Use Smoking Status: Heavy Smoker (>10/day) Tobacco Use: Cigarettes Assessment/Plan Debility status post surgical debridement for infected left inferior gluteal skin flap that was done for 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 Goal of rehab is buddhist of prior level of functional independence. Plan: - Physical therapy for gait and balance - Occupational Therapy for ADLs - As needed analgesics - Bowel protocol - DM II continue home medication,Levemir insulin, 22 units BID, Accu-check AC/ HS with mild sliding scale insulin - DVT prophylaxis: SCDs, Lovenox - HLD - continue home dose of statin - Anemia 2/2 anemia of chronic disorder vs acute blood loss following surgery = > patient on Ferrex - Infected left inferior gluteal fasciocutaneous skin flap: debridement and excisional debridement, on IV Rocephin, James to aid in wound healing, and a wound vac. - Peripheral vascular disease: s/p below right knee amputation. Currently on aspirin, statin and Plavix. - chronic pain syndrome: currently on Lyrica - Tobacco abuse: Started on Chantix. - Labs => CBC with Diff - WBC 6.9, CMP - LFTs are abnormal, Sed rate - 56, Ammonia level -19, and Urinalysis was WNL: will discuss with the Hospitalist, hold Lipitor. - D/c Fentanyl patch, Voltaren, and decrease the Klonopin to 0.25mg BID - Consult out to pain management
--- NOTE | 2018-01-28 10:50 | NURSING ---
Per Dr. Castro request, Dr. Vasquez sent text page to address elevated LFT's on patient.
[2018-01-28] MEDS: Insulin Lispro 100 UNIT/ML INSULN.PEN SC ×3 (11:30→21:23)
[2018-01-28 12:06] LABS: Bedside Glucose 265 mg/dL (70-110)
[2018-01-28 16:41] LABS: Bedside Glucose 308 mg/dL (70-110)
[2018-01-28 19:39] VITALS: BP 111/51; PULSE 73; RESP 16; TEMP 36.8; O2SAT 97
[2018-01-28 21:41] LABS: Bedside Glucose 332 mg/dL (70-110)
[2018-01-29] MEDS: Enoxaparin 40 MG/0.4 ML Syringe SC (05:15)
[2018-01-29] MEDS: Baclofen 10 MG Tablet PO ×3 (05:16→22:01)
[2018-01-29] MEDS: oxyCODONE 5 MG Tablet 10 MG PO ×5 (05:22→22:46)
[2018-01-29 06:46] LABS: Bedside Glucose 111 mg/dL (70-110)
[2018-01-29 07:42] VITALS: BP 107/65; PULSE 77; RESP 18; TEMP 36.8; O2SAT 98
[2018-01-29] MEDS: Iron Polysaccharide Complex 150 MG CAPSULE PO (07:45)
[2018-01-29] MEDS: Acetaminophen 500 MG Tablet 1000 MG PO ×3 (07:45→22:30)
[2018-01-29] MEDS: Aspirin 81 MG TAB.CHEW PO (07:45)
[2018-01-29] MEDS: Ceftriaxone 1 GM/50 mL Premix Q24 IV (09:07)
[2018-01-29] MEDS: 0.9% NaCl PICC Flush IV ×2 (09:08→22:50)
[2018-01-29] MEDS: DULoxetine Hcl 60 MG Capsule PO ×2 (10:16→22:01)
[2018-01-29] MEDS: Famotidine 20 MG Tablet PO ×2 (10:16→22:01)
[2018-01-29] MEDS: Pantoprazole Sodium 40 MG Tablet PO (10:16)
[2018-01-29] MEDS: Loratadine 10 MG Tablet PO (10:16)
[2018-01-29] MEDS: Pregabalin 75 MG Capsule 150 MG PO ×2 (10:16→22:01)
[2018-01-29] MEDS: Varenicline 1 MG Tablet PO ×2 (10:16→22:01)
[2018-01-29] MEDS: Docusate Sodium 100 MG Capsule PO ×2 (10:16→22:01)
[2018-01-29] MEDS: Clopidogrel Bisulfate 75 MG Tablet PO (10:16)
[2018-01-29] MEDS: clonazePAM 0.5 MG Tablet 0.25 MG PO ×2 (10:17→22:04)
--- NOTE | 2018-01-29 11:16 | CASEMGMT ---
Insurance Clinical information faxed. Pending continued stay approval at this time. Auth#[id number] Monica HENDRICKS, BRANCH CONTROLLER
[2018-01-29 12:06] LABS: Bedside Glucose 214 mg/dL (70-110)
[2018-01-29] MEDS: Insulin Lispro 100 UNIT/ML INSULN.PEN SC ×3 (12:10→22:03)
[2018-01-29 13:14] VITALS: BP 99/55; PULSE 84; RESP 16; TEMP 36.8; O2SAT 98
[2018-01-29 13:21] LABS: Bedside Glucose 303 mg/dL (70-110)
--- NOTE | 2018-01-29 16:11 | PN.NEURO_ITS ---
Subjective: Patient seen and examined. Patient is tolerating therapy. pain is still an issue, Dr. Ramirez was in to see the patient earlier in the week and recommended no changes to her pain medications. Dr. Vasquez reviewed her elevated LFTs, she recommends no changes to medication at this time, and to recheck LFTs in one week from the original draw, will recheck on Friday 02/02, of next week. Denies any shortness of breath or chest pains. Tolerating regular diet. Wound Vac in place, Good seal noted at 150mmHg low continuous suction. Putting out minimal serosanguineous drainage. - Physical Exam General: Alert, Oriented x3, Cooperative HEENT: Atraumatic, PERRLA, EOMI, Normocephalic Neck: Supple, No JVD, Negative Carotid Bruits Lungs: Clear to auscultation, Normal air movement Cardiovascular: Regular rate, No murmurs Abdomen: Bowel Sounds Present, Soft, Non Tender Extremities: No edema, Capillary Refill Less than 3 Seconds Skin: No rashes, No breakdown Musculoskeletal: No Tenderness to Palpation of Joints or Extremities Neurological: Cranial nerves II-XII grossly intact Psych/Mental Status: Normal Affect, Appropriate, Alert and oriented to time, place, person, mood and affect Vital Signs Temp Pulse Resp BP Pulse Ox 98.3 F 84 16 99/55 L 98 01/29/18 13:14 01/29/18 13:14 01/29/18 13:14 01/29/18 13:14 01/29/18 13:14 Oxygen Delivery Method Room Air Weight: 84.5 kg Body Mass Index (BMI) 28.5 Finger Stick Blood Glucose 102 Intake and Output for Last 24 Hours 01/27/18 01/28/18 01/29/18 23:59 23:59 23:59 Intake Total 1580 / 1580 1140 / 1140 480 / 480 Output Total 400 / 400 Balance 1580 / 1580 740 / 740 480 / 480 POC Glucose 01/29/18 01/29/18 01/29/18 13:13 12:01 06:40 POC Glucose 303 H 214 H 111 H 01/28/18 01/28/18 21:20 16:31 POC Glucose 332 H 308 H Active Medications Acetaminophen (Tylenol) 1,000 mg PO Q8 [facility] Last Admin: 01/29/18 13:07 Dose: 1,000 mg Aspirin (Aspirin, Baby) 81 mg PO DAILY@0800 [facility] Last Admin: 01/29/18 07:45 Dose: 81 mg Baclofen (Lioresal) 10 mg PO TID [facility] Last Admin: 01/29/18 13:07 Dose: 10 mg Bisacodyl (Dulcolax) 10 mg RECTAL .PRN X 1 PRN PRN Reason: Constipation Clonazepam (Klonopin) 0.25 mg PO BID [facility] Last Admin: 01/29/18 10:17 Dose: 0.25 mg Clopidogrel Bisulfate (Plavix) 75 mg PO DAILY [facility] Last Admin: 01/29/18 10:16 Dose: 75 mg Dextrose (D50w Syringe) 0 gm IV X1 PRN; Protocol PRN Reason: Hypoglycemia Docusate Sodium (Colace) 100 mg PO BID [facility] Last Admin: 01/29/18 10:16 Dose: 100 mg Duloxetine HCl (Cymbalta) 60 mg PO BID [facility] Last Admin: 01/29/18 10:16 Dose: 60 mg Enoxaparin Sodium (Lovenox) 40 mg SC DAILY@0600 [facility] Last Admin: 01/29/18 05:15 Dose: 40 mg Famotidine (Pepcid) 20 mg PO BID [facility] Last Admin: 01/29/18 10:16 Dose: 20 mg Glucagon () 1 mg IM .X1 PRN PRN Reason: Hypoglycemia Heparin Sodium (Beef Lung) (Heparin 500 Unit/5 Ml (100/Ml)) 500 unit IV UD PRN PRN Reason: HEPARIN FLUSH Ceftriaxone Sodium (Rocephin) 1 gm in 50 mls @ 100 mls/hr IV Q24 [facility] Stop: 02/21/18 10:01 Last Admin: 01/29/18 09:07 Dose: 100 mls/hr Insulin Detemir (Levemir (Bkc)) 40 units SC QHS [facility] Last Admin: 01/28/18 21:21 Dose: 40 u Insulin Human Lispro (Humalog Kwikpen (Bkc)) 0 unit SC ACHS [facility] PRN Reason: Protocol Last Admin: 01/29/18 12:10 Dose: 2 units Loratadine (Claritin) 10 mg PO DAILY [facility] Last Admin: 01/29/18 10:16 Dose: 10 mg Magnesium Hydroxide (Milk Of Magnesia) 30 ml PO .PRN X 1 PRN PRN Reason: Constipation [facility]) [facility] Admin: 01/29/18 07:45 Dose: 500 mg Nicotine Polacrilex (Rugby Nicotine (Pbkc)) 4 mg PO Q2H PRN PRN PRN Reason: Nicotine Craving Nutritional Formula (James - [place] Flavor) [facility] Last Admin: 01/29/18 07:46 Dose: 1 packet Ondansetron HCl (Zofran) 4 mg IV Q6H PRN PRN PRN Reason: NAUSEA Ondansetron HCl (Zofran) 8 mg PO Q8H PRN PRN PRN Reason: NAUSEA Last Admin: 01/27/18 12:10 Dose: 8 mg Oxycodone HCl (Oxyir) 10 mg PO Q4H PRN PRN PRN Reason: SEVERE PAIN (6-10/10) Last Admin: 01/29/18 14:38 Dose: 10 mg Pantoprazole Sodium (Protonix) 40 mg PO DAILY [facility] Last Admin: 01/29/18 10:16 Dose: 40 mg Polysaccharide Iron Complex (Ferrex 150) [facility] Last Admin: 01/29/18 07:45 Dose: 150 mg Pregabalin (Lyrica) 150 mg PO BID [facility] Last Admin: 01/29/18 10:16 Dose: 150 mg Sodium Chloride () 10 - 20 ml IV UD PRN PRN Reason: PICC FLUSH Last Admin: 01/29/18 09:08 Dose: 10 ml Varenicline (Chantix) 1 mg PO BID [facility] Last Admin: 01/29/18 10:16 Dose: 1 mg Medical Necessity - Tobacco Use Smoking Status: Heavy Smoker (>10/day) Tobacco Use: Cigarettes Assessment/Plan Debility status post surgical debridement for infected left inferior gluteal skin flap that was done for 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 Goal of rehab is zoroastrianism of prior level of functional independence. Plan: - Physical therapy for gait and balance - Occupational Therapy for ADLs - As needed analgesics - Bowel protocol - DM II continue home medication,Levemir insulin, 22 units BID, Accu-check AC/ HS with mild sliding scale insulin - DVT prophylaxis: SCDs, Lovenox - HLD - continue home dose of statin - Anemia 2/2 anemia of chronic disorder vs acute blood loss following surgery = > patient on Ferrex - Infected left inferior gluteal fasciocutaneous skin flap: debridement and excisional debridement, on IV Rocephin, James to aid in wound healing, and a wound vac. - Peripheral vascular disease: s/p below right knee amputation. Currently on aspirin, statin and Plavix. - chronic pain syndrome: currently on Lyrica - Tobacco abuse: Started on Chantix. - Labs => CBC with Diff - WBC 6.9, CMP - LFTs are abnormal, Sed rate - 56, Ammonia level -19, and Urinalysis was WNL: will discuss with the Hospitalist, hold Lipitor. - D/c Fentanyl patch, Voltaren, and decrease the Klonopin to 0.25mg BID - Consult out to pain management => no change in treatment plan per pain management at this time
--- NOTE | 2018-01-29 17:06 | CASEMGMT ---
Insurance Telephone call from Keesha at [facility]. Keesha reporting that a discharge plan needs to be put in place as soon as possible as continued stay is being denies. Keesha reporting that patient will need to discharge within the next couple days. Auth#[id number] Monica HENDRICKS, RETAIL SALES [employer]CH[employer]ELOPMENT
--- NOTE | 2018-01-29 17:07 | CASEMGMT ---
Social Work Spoke with patient in room. This high school social studies tutor communicating that continued stay is not being approved by insurance and that patient will need to discharge within the next couple days. Patient is agreeable to discharge and plans to discharge home with significant other. Patient to continue with wound care via wound vac and will have home infusion therapy. Patient aware that patient will be taught how to manage the I.V. within the home and that a nurse will provide the wound vac care within the home and any questions about the I.V. Patient does not have a preference of home health company, but simply requesting for an in network provider to be set up. Patient agreeable to I.V. therapy being set up through [facility]. Patient reporting to need a cane, bedside commode and shower chair at time of discharge. Patient does not have a preference of [employer] to be utilized. Patient declining for this high school social studies tutor to contact any family in regards to discharge plan. Tentative discharge date set for 01/30/18, in the event that all equipment/I.V therapy/Home Health can be set up and a safe discharge plan is in place. Support given. Will continue with setting up above mentioned services on the next business day as it is now the end of business day today and insurance did not contact this high school social studies tutor until 1640. Proposed discharge date: 01/30/18 PLAN: Discharge home with significant other and home health services. Monica HENDRICKS, EDGE GLUER
[2018-01-29 17:11] LABS: Bedside Glucose 202 mg/dL (70-110)
[2018-01-29 17:30] VITALS: BP 123/87; PULSE 85
[2018-01-29 19:13] VITALS: BP 129/72; PULSE 92; RESP 18; TEMP 37; O2SAT 98
[2018-01-29 21:46] LABS: Bedside Glucose 259 mg/dL (70-110)
[2018-01-29 22:00] VITALS: RESP 18
[2018-01-29] MEDS: Ondansetron 8 MG Tablet PO (22:50)
[2018-01-30] MEDS: Enoxaparin 40 MG/0.4 ML Syringe SC (05:44)
[2018-01-30] MEDS: oxyCODONE 5 MG Tablet 10 MG PO ×3 (05:44→15:13)
[2018-01-30] MEDS: Baclofen 10 MG Tablet PO ×2 (05:45→14:15)
--- NOTE | 2018-01-30 05:49 | NURSING ---
P awakened with 10/10 pain at 05:45. Pt refused scheduled Tylenol at this time and requested Oxyir 10mg. Pt provided Oxyir and repositioned. Pt wants to wait a while to get ready for the day to give Oxyir some time to become effective. Staff will continue to monitor.
[2018-01-30] MEDS: Acetaminophen 500 MG Tablet 1000 MG PO ×2 (06:34→14:14)
[2018-01-30 06:41] LABS: Bedside Glucose 81 mg/dL (70-110)
[2018-01-30 08:18] VITALS: BP 107/58; PULSE 77; RESP 17; TEMP 36.8; O2SAT 94
--- NOTE | 2018-01-30 08:20 | CASEMGMT ---
Social Work Spoke with patient in room. Patient reporting to have spoken to insurance company and that continued stay had not been denied. Telephone call to Keesha at [facility]. Keesha reporting that a form denial has not been initiated but case was in fact sent to medical review. Keesha reporting to anticipate last cover day of 01/29/18 and discharge or patient financial responsibility to begin on 01/30/18. Keesha to contact this social media marketing specialist with determination of case after medical review today. Will continue to follow. Monica HENDRICKS, SUMATRA OPENER
[2018-01-30] MEDS: Aspirin 81 MG TAB.CHEW PO (08:32)
[2018-01-30] MEDS: Famotidine 20 MG Tablet PO (08:32)
[2018-01-30] MEDS: Clopidogrel Bisulfate 75 MG Tablet PO (08:32)
[2018-01-30] MEDS: Loratadine 10 MG Tablet PO (08:33)
[2018-01-30] MEDS: Iron Polysaccharide Complex 150 MG CAPSULE PO (08:33)
[2018-01-30] MEDS: Pantoprazole Sodium 40 MG Tablet PO (08:33)
[2018-01-30] MEDS: Docusate Sodium 100 MG Capsule PO (08:33)
[2018-01-30] MEDS: DULoxetine Hcl 60 MG Capsule PO (08:34)
--- NOTE | 2018-01-30 08:44 | PCM.DC ---
- Discharge Diagnoses Reason(s) for Visit for Discharge Instructions: Debility You will use the following diet at home:: Regular, Calorie/Carbohydrate Controlled (specify 1200, 1400, etc) Your food should be the consistency of: Regular Your liquids should be the consistency of: Regular/Thin Discharge Activity: May Not Drive, May not drive while taking narcotic pain medications., May Shower, - - Do Not soak in a Tub bath Weight Bearing Status: Weight bearing as tolerated Call your doctor if your incision/area has: Sudden Increased Bleeding, Increased Pain/ Swelling, Increased Redness, Foul Smelling Discharge, Swelling at the incision site Call your doctor if you observe: Fever of 101 or Higher, Coldness, Increased Pain, Numbness or Tingling, Change in Color, Inability to urinate, Inability to have a bowel movement, Using more than one pad per hour, Shortness of breath, Dizziness, Fainting spells, Swelling in the ankles, Chest pain, Prolonged hiccoughing, Increased palpitations (irregular heartbeat), Calf discomfort, Uncontrolled pain Cleanse incision/area with: Do not get Incision Wet, - - Keep Wound Vac in place to low continuous suction Allergies/Adverse Reactions: Allergies fentanyl Allergy (Verified 01/16/18 22:42) Other morphine Adverse Reaction (Verified 01/16/18 22:42) Upset Stomach Medications to take at Discharge Aspirin [Aspirin, Baby] 81 mg PO DAILY@0800 04/26/16 Atorvastatin Calcium [Lipitor] 40 mg PO QHS 04/26/16 Baclofen 10 mg PO TID 04/26/16 Insulin Aspart [Novolog Flexpen] 0 units SC TIDCM 04/26/16 Pregabalin [Lyrica] 150 mg PO BID 04/26/16 Ranitidine [Zantac] 150 mg PO BID 04/26/16 Diclofenac Sodium 50 mg PO BID 12/30/17 Cetirizine HCl [Zyrtec] 10 mg PO DAILY 01/19/18 Diazepam [Valium] 5 mg PO BID #15 tab 01/23/18 Docusate Sodium [Colace] 100 mg PO BID 01/23/18 Glucerna Shake 120 ml PO 4X/DAY 01/23/18 Insulin Aspart [Novolog Flexpen] See Protocol SC TIDAC 01/23/18 Iron Polysaccharide Complex [Ferrex 150] 150 mg PO DAILYCM 01/23/18 Ceftriaxone [Rocephin] 1 gm IV Q24 21 Days #21 bag 01/26/18 Acetaminophen [Tylenol] 1,000 mg PO Q8 tablet 01/29/18 Metformin HCl [Glucophage] 500 mg PO BIDCM #60 tab 01/29/18 Nutritional Supplement [James - ORANGE FLAVOR] 1 packet PO BIDCM #60 packet 01/29/18 Oxycodone [Oxyir] 10 mg PO Q4H PRN PRN 7 Days #40 tab 01/29/18 Varenicline [Chantix] 1 mg PO BID #60 tab 01/29/18 Clonazepam [Klonopin] 0.5 mg PO BID #30 tablet 01/30/18 Clopidogrel Bisulfate [Plavix] 75 mg PO DAILY #30 01/30/18 Duloxetine Hcl [Cymbalta] 60 mg PO BID #60 cap 01/30/18 Insulin Detemir [Levemir FlexPen] 40 units SC QHS #2 insuln.pen 01/30/18 The following prescriptions were given: Oxycodone [Oxyir] 10 mg PO Q4H PRN PRN 7 Days #40 tab PRN Reason: Severe Pain (6-10/10) Ceftriaxone [Rocephin] 1 gm IV Q24 21 Days #21 bag Insulin Detemir [Levemir FlexPen] 40 units SC QHS #2 insuln.pen Clonazepam [Klonopin] 0.5 mg PO BID #30 tablet Duloxetine Hcl [Cymbalta] 60 mg PO BID #60 cap Metformin HCl [Glucophage] 500 mg PO BIDCM #60 tab Nutritional Supplement [James - [place] FLAVOR] 1 packet PO BIDCM #60 packet Varenicline [Chantix] 1 mg PO BID #60 tab Primary Care Physician: Care Physician,No Primary [Primary Care Provider] - Please Follow Up With: Sasha Rodriguez MD Proposed Discharge Date: 01/30/18
--- NOTE | 2018-01-30 08:56 | PCM.RU.DC ---
Rehab Discharge Summary DATE OF ADMISSION: 01/23/18 DATE OF DISCHARGE: 01/30/18 - Rehab Diagnosis Debility Discharge Diet: 2200 Calorie Control Diet, Carb Control Diet Discharge Activity: May Not Drive, May not drive while taking narcotic pain medications., May Shower, - - Do Not soak in a Tub bath Weight Bearing Status: Weight bearing as tolerated Call your doctor if your incision/area has: Sudden Increased Bleeding, Increased Pain/ Swelling, Increased Redness, Foul Smelling Discharge, Swelling at the incision site Call your doctor if you observe: Fever of 101 or Higher, Coldness, Increased Pain, Numbness or Tingling, Change in Color, Inability to urinate, Inability to have a bowel movement, Using more than one pad per hour, Shortness of breath, Dizziness, Fainting spells, Swelling in the ankles, Chest pain, Prolonged hiccoughing, Increased palpitations (irregular heartbeat), Calf discomfort, Uncontrolled pain Cleanse incision/area with: Do not get Incision Wet, - - Keep Wound Vac in place to low continuous suction Home Medications: Medications to take at Discharge Aspirin [Aspirin, Baby] 81 mg PO DAILY@0800 04/26/16 Atorvastatin Calcium [Lipitor] 40 mg PO QHS 04/26/16 Baclofen 10 mg PO TID 04/26/16 Clopidogrel Bisulfate [Plavix] 75 mg PO DAILY 04/26/16 Duloxetine Hcl [Cymbalta] 60 mg PO BID 04/26/16 Insulin Aspart [Novolog Flexpen] 0 units SC TIDCM 04/26/16 Insulin Detemir [Levemir FlexPen] 40 units SC QHS 04/26/16 Pantoprazole Sodium [Protonix] 40 mg PO DAILY 04/26/16 Pregabalin [Lyrica] 150 mg PO BID 04/26/16 Ranitidine [Zantac] 150 mg PO BID 04/26/16 Clonazepam [Klonopin] 0.5 mg PO BID 07/02/16 Diclofenac Sodium 50 mg PO BID 12/30/17 Cetirizine HCl [Zyrtec] 10 mg PO DAILY 01/19/18 Diazepam [Valium] 5 mg PO BID #15 tab 01/23/18 Docusate Sodium [Colace] 100 mg PO BID 01/23/18 Glucerna Shake 120 ml PO 4X/DAY 01/23/18 Insulin Aspart [Novolog Flexpen] See Protocol SC TIDAC 01/23/18 Iron Polysaccharide Complex [Ferrex 150] 150 mg PO DAILYCM 01/23/18 Ceftriaxone [Rocephin] 1 gm IV Q24 21 Days #21 bag 01/26/18 Ceftriaxone [Rocephin] 1 gm IV Q24 21 Days #21 bag 01/26/18 0.9% Saline Lock 10 - 20 ml IV UD PRN syringe 01/29/18 Acetaminophen [Tylenol] 1,000 mg PO Q8 tablet 01/29/18 Metformin HCl [Glucophage] 500 mg PO BIDCM #60 tab 01/29/18 Nutritional Supplement [James - ORANGE FLAVOR] 1 packet PO BIDCM #60 packet 01/29/18 Ondansetron [Zofran] 4 mg IV Q6H PRN PRN #30 vial 01/29/18 Oxycodone [Oxyir] 10 mg PO Q4H PRN PRN 7 Days #40 tab 01/29/18 Varenicline [Chantix] 1 mg PO BID #60 tab 01/29/18 Following Prescrptions Were Given to Patient: Oxycodone [Oxyir] 10 mg PO Q4H PRN PRN 7 Days #40 tab PRN Reason: Severe Pain (6-10/10) Ondansetron [Zofran] 4 mg IV Q6H PRN PRN #30 vial PRN Reason: Nausea Ceftriaxone [Rocephin] 1 gm IV Q24 21 Days #21 bag Ceftriaxone [Rocephin] 1 gm IV Q24 21 Days #21 bag Metformin HCl [Glucophage] 500 mg PO BIDCM #60 tab Nutritional Supplement [James - ORANGE FLAVOR] 1 packet PO BIDCM #60 packet Varenicline [Chantix] 1 mg PO BID #60 tab Primary Care Physician: Care Physician,No Primary [Primary Care Provider] - Please Follow Up With: Sasha Rodriguez MD Disposition: Home with Home Health Minutes spent on discharge:: 40 Patient Condition:: Good Rehab Course This is a 47 year old right handed female who presents to the rehab unit for rehabilitation after undergoing debridement of a traumatic left ischial/perineal pressure sore, Stage IV. a compromised flap both medially and inferiorly with infected drainage with wound vac placement, on January 20, [address] Guadarrama.Her initial surgery was in [place] on 12/04/17, she sustained a fall onto a rust microwave outside her apartment. 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 She now lives in [place]. She has a past medical history of PVD, HLD, Diabetes Type II, Hypertension and a right BKA. She lives with her and daughter in an apartment with 12 steps to get into the apartment. She was previously completely functionally independent and is admitted to the rehab unit in order to restore her previous level of functional independence. With Physical therapy, there has been a physical decline in her ability to get in and out of bed, prior to this admission on rehab she was able stand by assist and now she is contact guard. She is contact guard to stand, she was able to walk at least 200 to 350 feet with a single point cane she does occasionally have loss of balance requiring contact guard for safety purposes. This is also a decline for her, prior to this she was walking with out any loss of balance. With Occupational therapy, she is able to do all her own personal care. she does require minimal assists with putting on her pants and shoes, due to the wound vac on her left leg, and buttocks. With Nursing, she has been very lethargic, and sleepy, she had some nausea this morning, and required Phenergan. We discontinued her fentanyl patch, her Voltaren, and decreased her Klonopin to 0.25 mg BID. Will obtain a CBC with Diff, CMP, Ammonia Level, Sed rate and a urinalysis. Other mcdowell she is Neurologically intact. On re-assessment the patient was more alert and able to answer questions appropriately. Patient will be discharged home with home health Nurse to administer IV antibiotics, Physical therapy, and paperwork for repeat lab work. Meaningful Use Info Meaningful Use Diagnoses (Choose all that apply): None applicable
[2018-01-30] MEDS: Varenicline 1 MG Tablet PO (10:10)
[2018-01-30] MEDS: Pregabalin 75 MG Capsule 150 MG PO (10:39)
[2018-01-30] MEDS: Ceftriaxone 1 GM/50 mL Premix Q24 IV (10:40)
[2018-01-30] MEDS: clonazePAM 0.5 MG Tablet 0.25 MG PO (10:40)
[2018-01-30] MEDS: 0.9% NaCl PICC Flush IV (10:41)
--- NOTE | 2018-01-30 10:51 | CASEMGMT ---
Insurance Continued stay denied with a last cover day of 01/29/18 and patient to discharge or financial responsibility to begin on 01/30/18. Auth#[id number] Monica HENDRICKS, SAFETY DEPOSIT CLERK
--- NOTE | 2018-01-30 10:52 | CASEMGMT ---
Social Work Spoke with patient in room. This social services specialist communicating that continued stay has been denied and last cover day is 01/29/18 with patient to discharge or financial responsibility to begin on 01/30/18. Patient voicing understanding and planning to discharge to home with spouse on 01/30/18. This social services specialist also communicating that [facility] as opening and is able to accept patient for physical therapy and usp within the home. Patient is agreeable to a referral being made to [facility] for both mentioned disciplines. Patient reporting that family can provide transportation home for patient at time of discharge. Support given. Telephone call to Layla Morse. Layla reporting to not carry medical equipment for within the bathroom. Patient agreeable to referral for medical equipment being sent to [facility]. Telephone call to [facility]. Referral made to for 3-in-1 bedside commode, shower chair, and cane. Clinical information faxed. Patient planning to shrimp picker supplies on this day after discharge. Clinical information faxed to [facility] for home I.V. therapy. Pending response on benefits. Telephone call to [facility], referral made for physical therapy and usp with start of care being 01/31/18 @ 10:00am. Clinical information faxed along with orders. Proposed discharge date: 01/30/18 PLAN: Discharge home with spouse and home health services. Monica HENDRICKS, JOINTER MACHINE OPERATOR
[2018-01-30 11:36] LABS: Bedside Glucose 176 mg/dL (70-110)
[2018-01-30] MEDS: Insulin Lispro 100 UNIT/ML INSULN.PEN SC (12:25)
[2018-01-30 14:00] VITALS: BP 107/58; PULSE 77; RESP 17; TEMP 36.8; O2SAT 94
--- NOTE | 2018-01-30 15:00 | NURSING ---
Discharge instruct given to patient and verbalized understanding. Wound vac changed today and patient verbalized understanding with directions. Picc line instructions given.
--- NOTE | 2018-01-30 15:21 | CASEMGMT ---
Social Work Telephone flaquita from [facility] reporting that patient is 100% covered for home infusion. Supplies to be delivered to patient home by 01/31/18 @ 10:00am. Proposed discharge date: 01/30/18 PLAN: Discharge home with significant other and home health services. Monica HENDRICKS, SENIOR SOFTWARE DEVELOPMENT MANAGER
--- NOTE | 2018-01-30 15:46 | CASEMGMT ---
Insurance Notified insurance of patient discharge on 01/30/18 to home with significant other and home health services. Auth#[id number] Monica HENDRICKS, FACILITIES SPECIALIST
== END 2018-01-30 15:05 | disposition home health service (06) | DRG 466 ==
PROVIDERS: Nurse Practitioner Acute Care; Admitting Provider Psychiatry & Neurology Neurology; Visit Provider Internal Medicine
DX: Z48.817 Encounter for surgical aftercare following surgery on the skin and subcutaneous tissue (principal); L89.94 Pressure ulcer of unspecified site, stage 4; G89.4 Chronic pain syndrome; E11.51 Type 2 diabetes mellitus with diabetic peripheral angiopathy without gangrene; E78.5 Hyperlipidemia, unspecified; E11.622 Type 2 diabetes mellitus with other skin ulcer; Z89.511 Acquired absence of right leg below knee; Z93.3 Colostomy status; F41.9 Anxiety disorder, unspecified; I10 Essential (primary) hypertension; Z79.899 Other long term (current) drug therapy; Z79.4 Long term (current) use of insulin; Z79.02 Long term (current) use of antithrombotics/antiplatelets; F17.210 Nicotine dependence, cigarettes, uncomplicated; D64.9 Anemia, unspecified
CPT/HCPCS: 80053; 81001; 82140; 82962; 85025; 85652; 97110; 97116; 97162; 97165; 97530; 97535; 97802; 99406; A4216

== ENCOUNTER 2018-02-02 16:09 | Emergency (ER) | payer MEDICAID, SELFPAY ==
[2018-02-02 16:10] VITALS: BP 117/68; PULSE 85; RESP 16; TEMP 37.1; O2SAT 98; BMI 27.0
--- NOTE | 2018-02-02 16:43 | ED.VISSUMM ---
- ER Visit Summary Date of Service: 02/02/18 Chief Complaint: Wound check History of Present Illness: The patient is a 47 F resents to the emergency department for postoperative wound check. Patient had extensive debridement of nonhealing infected flap of her posterior left leg into her buttock by Dr. Guadarrama. She had wound VAC placed. She also has a PICC and is on Rocephin. They were unable to get the wound VAC to stick because she was having a lot of urine. They felt like there may been urine coming from the wound. She has not had fever or chills. She has had some pain. The nurse at home was concerned that her wound was tunneling to her bladder. She denies any abdominal pain. The patient has had prior colectomy with ostomy. Physical Examination: Vital signs reviewed General: Well-nourished, well-developed Head: Normocephalic, atraumatic Eyes: Pupils equal and reactive, extraocular muscles intact Neck, supple, no lymphadenopathy Heart: Regular rate and rhythm Respiratory: No distress, clear bilaterally Abdomen: Soft, nontender, nondistended, no peritoneal signs Back: Patient has a large debrided area on the posterior left leg up to the left gluteal area. It is just lateral to the labia. There is no active bleeding. There is no drainage. There is healthy-appearing granulation tissue. There was no purulence. Extremities: Nontender, no edema, no cords Skin: Normal color no rash Neuro: Alert and oriented, no focal or lateralizing deficits Test Results: [] Emergency Department Course and Treatment: Did attempt to contact Dr. chucho tejada, but he was signed out. It does not appear as if this wound tracks deep into the pelvis. However, given her symptoms that she was concerned there was tunneling I did obtain a CT. CT is actually markedly improved. The patient had a catheter placed which I will keep in place because I do feel that her continued urine leaking is hindering her wound resolution. Patient's dressing was changed. At this point, given improvement of her CT and no evidence of fistula I do feel that she is safe for outpatient therapy. She is comfortable this plan of care. Treatment Plan: [] Disposition: Discharge Impression: Postoperative wound check This note was generated with [employer] dictation software. It may contain incorrect words, spelling, and punctuation that were not noted in review of the chart prior to signing ED Disposition - Plan for ED Patient: Disposition: Home or Assisted Living Chief Complaint: Wound Instructions: ED Wound Check Post Op No Infec Referrals: Grzegorz Guadarrama MD [STAFF PHYSICIAN] -
--- NOTE | 2018-02-02 16:49 | CT_ITS ---
STUDY: CT ABDOMEN AND PELVIS WITH CONTRAST REASON FOR EXAM: Female, 47 years old. Rectal wound. RADIATION DOSAGE (If Supplied By Facility): CTDIvol = ( 16.10 ) mGy, DLP = ( 2126.46 ) mGycm TECHNIQUE: Transaxial images were obtained from the dome of the diaphragm to the symphysis pubis without oral contrast. 100 ml of Isovue 300 contrast was administered. Sagittal and coronal images were reconstructed. Individualized dose optimization techniques were used for this CT. COMPARISON: 01/19/2018. FINDINGS: The visualized lung bases are clear. The visualized portions of the heart and pericardium are within normal limits. The patient is status post cholecystectomy. The liver is within normal limits. There are no suspicious hepatic lesions. The spleen is normal in size. The pancreas is within normal limits. The adrenal glands are within normal limits. There are no obstructing renal stones. There is no hydronephrosis. There are no focal renal lesions. Normal visualized stomach. There is a left lower quadrant ileostomy in place. There is no bowel obstruction or inflammation. The appendix is visualized and appears normal. The aorta is normal in caliber. There are bilateral common iliac artery stents in place. There is no abdominal or pelvic free air, free fluid, fluid collection or lymphadenopathy. There is an open soft tissue wound again noted in the left inferior buttocks extending into the left posterior thigh. There is associated stranding noted, but no fluid collection is identified. When compared with the prior exam, the subcutaneous fat stranding has decreased. There are no destructive osseous lesions. CT/Abdomen/Pelvis W IV Cont ONLY IMPRESSION: Open soft tissue wound again noted in the left inferior buttocks which extends into the left posterior thigh. Interval decrease in the associated subcutaneous fat stranding. No fluid collection identified. Electronically Signed: Bebeto Aquino, at 17:58 EDT Tel , Service support ,
[2018-02-02] MEDS: HYDROmorphone 1 MG/ML Syringe IV (17:00)
[2018-02-02] MEDS: Ondansetron 4 MG/2 ML Vial IV (17:01)
[2018-02-02 17:05] LABS: Absolute Lymphocyte Count 1.68 X10^3/ul (0.83-4.51); Absolute Neutrophil Count 3.3 X10^3/uL (2.0-7.7); Basophil# 0.07 X10^3/uL; Basophil% 1.2 % (0-1); Eosinophil# 0.38 X10^3/uL; Eosinophils% 6.5 % (0-5); Hematocrit 29.3 % (37-47); Hemoglobin 9.6 g/dl (12.0-15.0); Lymphocyte # 1.68 X10^3/ul (4.0); Lymphocyte % 28.9 % (19-41); Mean Corp Hgb Conc 32.8 g/gl (32-36); Mean Corpuscular Hgb 30.5 pg (27.0-32.0); Mean Platelet Vol. 9.5 fl (6.2-12.0); Monocyte# 0.39 X10^3/uL; Monocyte% 6.7 % (0-10); Neutrophil # 3.28 X10^3/uL (2.7-7.7); Neutrophil % 56.5 % (47-70); POSITIVE COUNT NO; POSITIVE DIFFERENTIAL NO; POSITIVE MORPHOLOGY NO; Platelet Count 406 K/mm3 (150-450); RBC Distribution Width CV 12.8 % (11.6-14.6); Red Blood Count 3.15 M/mm3 (4.2-5.4); White Blood Count 5.8 K/mm3 (4.4-11.0)
--- NOTE | 2018-02-02 17:13 | ED.RN ---
wound from rt buttocks/perirectal area down to left post knee. full thickness wound. with wet to dry packing.
[2018-02-02 17:23] LABS: ALB/GLOB Ratio 0.7 RATIO (0.9-2.4); AST(SGOT) 10 U/L (15-37); Alanine Aminotransfer ALT/SGPT 22 U/L (13-56); Albumin, Serum 2.8 g/dL (3.2-5.0); Alkaline Phosphatase 106 U/L (45-117); Anion Gap 7 (5-15); BUN 13 mg/dL (7-18); Calcium,Total 8.2 mg/dL (8.5-10.1); Chloride 106 mmol/L (98-107); Creatinine, Serum 0.69 mg/dL (0.55-1.02); EST Glomerular Filtration Rate 98 mL/min (>60); Est Glom Filt Rate - Afr Amer 119 mL/min (>60); Estimated Creatinine Clearance 103.86 ml/min; Globulin 4.1 g/dL (2.2-4.2); Glucose 206 mg/dL (74-106); Potassium 3.7 mmol/L (3.5-5.1); Protein, Total 6.9 g/dL (6.4-8.2); Sodium Level 139 mmol/L (136-145)
[2018-02-02 18:09] LABS: Bacteria 0 SEEN /hpf (None Seen); Mucous, Urine 0 SEEN /hpf (<or=2+); Red Blood Cells-Urine 0 SEEN /hpf (0-5); Squamous Epithelial Cells - UA 0 SEEN /hpf (5-10); White Blood Cells 0 SEEN /hpf (0-5)
[2018-02-02 18:35] LABS: Color, Urine Yellow (Yellow); Glucose, Dipstick 1000 mg/dl (Normal); Ketone-Dipstick Negative (Negative); Leukocyte Esterase-Dipstick Negative /ul (Negative); Nitrite-Dipstick Negative (Negative); Occult Blood-Urine Negative /ul (Negative); Protein-Dipstick Negative (Negative); Urine Bilirubin Dipstick Negative (Negative); Urine Clarity Clear (Clear); Urine Urobilinogen Normal (Normal); Urine pH 6.5 (5.0 - 8.0)
[2018-02-02 19:12] VITALS: BP 120/74; PULSE 71; RESP 16; O2SAT 100
== END 2018-02-02 19:13 | disposition home or self-care (01) ==
LOC: ED 16:43
PROVIDERS: Emergency Provider Emergency Medicine; Family Provider Internal Medicine; PCP Internal Medicine
DX: Z48.01 Encounter for change or removal of surgical wound dressing (principal); I10 Essential (primary) hypertension; E78.00 Pure hypercholesterolemia, unspecified; E11.9 Type 2 diabetes mellitus without complications; I73.9 Peripheral vascular disease, unspecified; Z79.82 Long term (current) use of aspirin; Z79.4 Long term (current) use of insulin; Z79.01 Long term (current) use of anticoagulants; Z79.899 Other long term (current) drug therapy
CPT/HCPCS: 51702; 74177; 80053; 81001; 85025; 96374; 96375; 99284; J7030; J7040; Q9967; A4216; J2405

== ENCOUNTER → 2018-02-09 16:00 | Outpatient (CLI) | payer MEDICAID, SELFPAY ==
--- NOTE | 2018-02-09 16:00 | DT_ITS ---
This patient was seen during an EMR downtime February 09, 2018 - February 16, 2018. This patient may have a combination of paper and electronic documentation or all paper documentation. All documentation is viewable within the e-chart portion of [employer] for each patient visit.
[2018-02-13 21:43] LABS: Hematocrit 31.7 % (37-47); Hemoglobin 10.2 g/dl (12.0-15.0); Mean Corp Hgb Conc 32.2 g/gl (32-36); Mean Corpuscular Hgb 29.7 pg (27.0-32.0); Mean Corpuscular Volume 92.2 fL (81-99); Mean Platelet Vol. 9.5 fl (6.2-12.0); Platelet Count 479 K/mm3 (150-450); RBC Distribution Width CV 12.4 % (11.6-14.6); Red Blood Count 3.44 M/mm3 (4.2-5.4); White Blood Count 7.3 K/mm3 (4.4-11.0)
[2018-02-13 21:44] LABS: Absolute Lymphocyte Count 1.41 X10^3/ul (0.83-4.51); Absolute Neutrophil Count 4.9 X10^3/uL (2.0-7.7); Basophil# 0.08 X10^3/uL; Basophil% 1.1 % (0-1); Eosinophil# 0.45 X10^3/uL; Eosinophils% 6.1 % (0-5); Lymphocyte # 1.41 X10^3/ul (4.0); Lymphocyte % 19.3 % (19-41); Monocyte# 0.44 X10^3/uL; Neutrophil # 4.93 X10^3/uL (2.7-7.7); Neutrophil % 67.4 % (47-70); POSITIVE COUNT NO; POSITIVE DIFFERENTIAL NO; POSITIVE MORPHOLOGY NO
[2018-02-13 21:45] LABS: ALB/GLOB Ratio 0.7 RATIO (0.9-2.4); AST(SGOT) 9 U/L (15-37); Alanine Aminotransfer ALT/SGPT 14 U/L (13-56); Albumin, Serum 2.8 g/dL (3.2-5.0); Alkaline Phosphatase 97 U/L (45-117); BUN 14 mg/dL (7-18); BUN/Creat Ratio 18.7 RATIO (10-20); Calcium,Total 7.8 mg/dL (8.5-10.1); Creatinine, Serum 0.75 mg/dL (0.55-1.02); EST Glomerular Filtration Rate 89 mL/min (>60); Erythrocyte Sedimentation Rate 57 mm/hr (0-20); Est Glom Filt Rate - Afr Amer 108 mL/min (>60); Glucose 378 mg/dL (74-106); Protein, Total 6.8 g/dL (6.4-8.2)
[2018-02-13 21:46] LABS: Anion Gap 7 (5-15); Chloride 104 mmol/L (98-107); Potassium 4.1 mmol/L (3.5-5.1); Sodium Level 138 mmol/L (136-145)
== END ==
PROVIDERS: Family Provider Internal Medicine; PCP Internal Medicine; Visit Provider Surgery
DX: Z97.2 Presence of dental prosthetic device (complete) (partial) (principal)
CPT/HCPCS: 80053; 85025; 85652; 86140

== ENCOUNTER 2018-02-23 08:35 | Outpatient (RCR) | payer MEDICAID, SELFPAY ==
[2018-02-06 01:05] VITALS: PULSE 90; RESP 16; TEMP 37
[2018-02-23 11:46] VITALS: BP 121/77; PULSE 90; RESP 16; TEMP 35.9
--- NOTE | 2018-02-23 20:59 | PCM.WC.PN ---
Type of Wound Date of Service: 02/23/18 Chief Complaint: Traumatic left ischial/perineal pressure sore, Stage IV, s/p inferior gluteal thigh fasciocutaneous flap with compromise and drainage. History of Wound: Surgery 01/20/18 - Surgical preparation left ischial/perineal pressure sore flap wound with inferior extension onto posterior thigh with incision and drainage and excisional debridement infection abscess (252 cm2). Wound care - VAC. Operative culture - Staphylococcus epidermidis and Anaerobic cocci. She was treated with Ceftriaxone and Flagyl and has completed them. Prealbumin was 20.3 on 01/19/18. Encourage nutritional supplementation with protein to help the healing process. HgbA1c was 7.9 on 01/20/18. Today she denies fever. Her appetite is ok. Progress of Wound: Improved. - Physical Exam Vital Signs Temp Pulse Resp BP 96.6 F L 90 16 121/77 H 02/23/18 11:46 02/23/18 11:46 02/23/18 11:46 02/23/18 11:46 Wound Measurements and Assessment WC - Nurse 1 - General Ulcer Measurement Start: 02/23/18 11:40 Freq: Status: Active Protocol: Activity Type Activity Date Activity User E-Sign Co-Sign Detail Recorded Client Recorded Date Recorded By Document 02/23/18 11:46 [facility] [id number] 02/23/18 11:59 [facility] 02/23/18 11:46 Wound Center Nurse 1 [Ulcer Assessment] #1 Left medial simona-anal wound -Combined with other wound No -Current Size (cm) - Length 30 -Current Size (cm) - Width 7 -Current Size (cm) - Depth 1.2 -Total Square Cm 210 -Date of Last Picture (Recall this 02/23/18 field) -Photo Taken Yes -Epithelialization Small 1-33% -Tunneling No -Undermining/Tunneling No -Circular Undermining No -Exudate Amt Medium (34-66%) -Exudate Type Serous -Wound Margin Distinct, Outline Attached -Granulation Amt Large (67-100%) -Granulation Quality Red -Slough/Fibrin No -Texture (Simona-wound Skin Appearance) Scarring -Moisture (Simona-wound Skin Appearance Assessed ) -Color (Simona-wound Skin Appearance) Assessed -Temperature (Simona-wound Skin No Abnormality Appearance) (Pt Warm) -Tenderness on Palpation (Simona-wound No Skin Appearance) -Ulcer Cleansing Rinsed/ Irrigated with Saline -Foul Odor after Cleansing No -Anesthetic Used 4% Lidocaine Solution - Nurse 2 - General Ulcer CM Notes Start: 02/23/18 11:40 Freq: Status: Active Protocol: Activity Type Activity Date Activity User E-Sign Co-Sign Detail Recorded Client Recorded Date Recorded By Document 02/23/18 12:38 SHAYNA [id number] 02/23/18 12:40 SHAYNA 02/23/18 12:38 Wound Center Nurse 2 [Procedure/Treatment] -Time 12:39 -Correct Patient Yes -Correct Side, Site, Position Yes -Correct Procedure Yes -Procedure Performed Yes -Type of Procedure Debridement -Clinical Debridement Muscle -Post Debridement Size (cm) - Length 30.1 -Post Debridement Size (cm) - Width 7.1 -Post Debridement Size (cm) - Depth 1.2 -Total Square Cm 213.71 -Wound/Ulcer Outcome Not Healed -Ulcer Cleansing Rinsed/ Irrigated with Saline -Foul Odor after Cleansing No -Bioengineered Tissue No -Bleeding Controlled with Pressure -Treatment Response Procedure Tolerated Well [See Physician Procedure note for Specifics] Pain Scale: 0-10 Numeric [Pain] -Is Patient Pain Free? Yes Debridement Note Post-Debridement Measurements/Treatment - Nurse 2 - General Ulcer CM Notes Start: 02/23/18 11:40 Freq: Status: Active Protocol: Activity Type Activity Date Activity User E-Sign Co-Sign Detail Recorded Client Recorded Date Recorded By Document 02/23/18 12:38 SHAYNA [id number] 02/23/18 12:40 SHAYNA 02/23/18 12:38 Wound Center Nurse 2 #1 Left medial simona-anal wound -Time 12:39 -Correct Patient Yes -Correct Side, Site, Position Yes -Correct Procedure Yes -Procedure Performed Yes -Type of Procedure Debridement -Clinical Debridement Muscle -Post Debridement Size (cm) - Length 30.1 -Post Debridement Size (cm) - Width 7.1 -Post Debridement Size (cm) - Depth 1.2 -Total Square Cm 213.71 -Wound/Ulcer Outcome Not Healed -Ulcer Cleansing Rinsed/ Irrigated with Saline -Foul Odor after Cleansing No -Bioengineered Tissue No -Bleeding Controlled with Pressure -Treatment Response Procedure Tolerated Well Pain Scale: 0-10 Numeric Is Patient Pain Free? Yes Wound debrided: #1 Left ischial/perineal area with inferior thigh extension. Laterality: Left Wound Grade/Stage: 3. Type of Debridement: Excisional debridement Anesthesia Used: 4% Lidocaine Solution Depth: Down to and including healthy tissue, in the subcutaneous layer, to muscle Percentage of wound debrided: 100 Instrument Used: 5mm curette Tissue Removed: subcutaneous tissue and muscle. Severity: Fat Layer Exposed - muscle is exposed. Amount of bleeding with debridement: Mild Bleeding Controlled with: Pressure Patient tolerated procedure well Assessment/Plan Assessment: 1. 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 3. s/p multiple debridements and VAC placement and inferior gluteal thigh fasciocutaneous flap. 4 Compromised flap medially and inferiorly with infected drainage. 5. Diabetes mellitus. 6. s/p surgical preparation left ischial/perineal pressure sore flap wound with inferior extension onto posterior thigh with incision and drainage and excisional debridement infection abscess (252 cm2). Plan: The wounds have improved. Will stop the VAC and begin Silver dressing changes daily. PICC line pulled today. She has finished the Ceftriaxone and Flagyl. Prealbumin was 20.3 on 01/19/18. Encourage nutritional supplementation with protein to help the healing process. Followup 2 weeks.
--- NOTE | 2018-02-25 00:40 | PN.PCM_ITS ---
Type of Wound Date of Service: 02/23/18 Chief Complaint: Traumatic left ischial/perineal pressure sore, Stage IV, s/p inferior gluteal thigh fasciocutaneous flap with compromise and drainage. History of Wound: Surgery 01/20/18 - Surgical preparation left ischial/perineal pressure sore flap wound with inferior extension onto posterior thigh with incision and drainage and excisional debridement infection abscess (252 cm2). Wound care - VAC. Operative culture - Staphylococcus epidermidis and Anaerobic cocci. She was treated with Ceftriaxone and Flagyl and has completed them. Prealbumin was 20.3 on 01/19/18. Encourage nutritional supplementation with protein to help the healing process. HgbA1c was 7.9 on 01/20/18. Today she denies fever. Her appetite is ok. Progress of Wound: Improved. - Physical Exam Vital Signs Temp Pulse Resp BP 96.6 F L 90 16 121/77 H 02/23/18 11:46 02/23/18 11:46 02/23/18 11:46 02/23/18 11:46 Wound Measurements and Assessment WC - Nurse 1 - General Ulcer Measurement Start: 02/23/18 11:40 Freq: Status: Active Protocol: Activity Type Activity Date Activity User E-Sign Co-Sign Detail Recorded Client Recorded Date Recorded By Document 02/23/18 11:46 [facility] [id number] 02/23/18 11:59 [facility] 02/23/18 11:46 Wound Center Nurse 1 [Ulcer Assessment] #1 Left medial simona-anal wound -Combined with other wound No -Current Size (cm) - Length 30 -Current Size (cm) - Width 7 -Current Size (cm) - Depth 1.2 -Total Square Cm 210 -Date of Last Picture (Recall this 02/23/18 field) -Photo Taken Yes -Epithelialization Small 1-33% -Tunneling No -Undermining/Tunneling No -Circular Undermining No -Exudate Amt Medium (34-66%) -Exudate Type Serous -Wound Margin Distinct, Outline Attached -Granulation Amt Large (67-100%) -Granulation Quality Red -Slough/Fibrin No -Texture (Simona-wound Skin Appearance) Scarring -Moisture (Simona-wound Skin Appearance Assessed ) -Color (Simona-wound Skin Appearance) Assessed -Temperature (Simona-wound Skin No Abnormality Appearance) (Pt Warm) -Tenderness on Palpation (Simona-wound No Skin Appearance) -Ulcer Cleansing Rinsed/ Irrigated with Saline -Foul Odor after Cleansing No -Anesthetic Used 4% Lidocaine Solution - Nurse 2 - General Ulcer CM Notes Start: 02/23/18 11:40 Freq: Status: Active Protocol: Activity Type Activity Date Activity User E-Sign Co-Sign Detail Recorded Client Recorded Date Recorded By Document 02/23/18 12:38 SHAYNA [id number] 02/23/18 12:40 SHAYNA 02/23/18 12:38 Wound Center Nurse 2 [Procedure/Treatment] -Time 12:39 -Correct Patient Yes -Correct Side, Site, Position Yes -Correct Procedure Yes -Procedure Performed Yes -Type of Procedure Debridement -Clinical Debridement Muscle -Post Debridement Size (cm) - Length 30.1 -Post Debridement Size (cm) - Width 7.1 -Post Debridement Size (cm) - Depth 1.2 -Total Square Cm 213.71 -Wound/Ulcer Outcome Not Healed -Ulcer Cleansing Rinsed/ Irrigated with Saline -Foul Odor after Cleansing No -Bioengineered Tissue No -Bleeding Controlled with Pressure -Treatment Response Procedure Tolerated Well [See Physician Procedure note for Specifics] Pain Scale: 0-10 Numeric [Pain] -Is Patient Pain Free? Yes Debridement Note Post-Debridement Measurements/Treatment - Nurse 2 - General Ulcer CM Notes Start: 02/23/18 11:40 Freq: Status: Active Protocol: Activity Type Activity Date Activity User E-Sign Co-Sign Detail Recorded Client Recorded Date Recorded By Document 02/23/18 12:38 SHAYNA [id number] 02/23/18 12:40 SHAYNA 02/23/18 12:38 Wound Center Nurse 2 #1 Left medial simona-anal wound -Time 12:39 -Correct Patient Yes -Correct Side, Site, Position Yes -Correct Procedure Yes -Procedure Performed Yes -Type of Procedure Debridement -Clinical Debridement Muscle -Post Debridement Size (cm) - Length 30.1 -Post Debridement Size (cm) - Width 7.1 -Post Debridement Size (cm) - Depth 1.2 -Total Square Cm 213.71 -Wound/Ulcer Outcome Not Healed -Ulcer Cleansing Rinsed/ Irrigated with Saline -Foul Odor after Cleansing No -Bioengineered Tissue No -Bleeding Controlled with Pressure -Treatment Response Procedure Tolerated Well Pain Scale: 0-10 Numeric Is Patient Pain Free? Yes Wound debrided: #1 Left ischial/perineal area with inferior thigh extension. Laterality: Left Wound Grade/Stage: 3. Type of Debridement: Excisional debridement Anesthesia Used: 4% Lidocaine Solution Depth: Down to and including healthy tissue, in the subcutaneous layer, to muscle Percentage of wound debrided: 100 Instrument Used: 5mm curette Tissue Removed: subcutaneous tissue and muscle. Severity: Fat Layer Exposed - muscle is exposed. Amount of bleeding with debridement: Mild Bleeding Controlled with: Pressure Patient tolerated procedure well Assessment/Plan Assessment: 1. 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 3. s/p multiple debridements and VAC placement and inferior gluteal thigh fasciocutaneous flap. 4 Compromised flap medially and inferiorly with infected drainage. 5. Diabetes mellitus. 6. s/p surgical preparation left ischial/perineal pressure sore flap wound with inferior extension onto posterior thigh with incision and drainage and excisional debridement infection abscess (252 cm2). Plan: The wounds have improved. Will stop the VAC and begin Silver dressing changes daily. PICC line pulled today. She has finished the Ceftriaxone and Flagyl. Prealbumin was 20.3 on 01/19/18. Encourage nutritional supplementation with protein to help the healing process. Followup 2 weeks.
== END 2018-03-07 23:59 ==
LOC: WC 08:35
PROVIDERS: Family Provider Internal Medicine; PCP Internal Medicine; Visit Provider Surgery
DX: L89.224 Pressure ulcer of left hip, stage 4 (principal)
CPT/HCPCS: 11043; 11046; 99214; G0463

== ENCOUNTER → 2018-03-20 18:24 | Outpatient (CLI) | payer MEDICAID, SELFPAY ==
[2018-03-20 19:16] LABS: Amphetamine Urine VISTA NEGATIVE (<1000 ng/mL); Barbiturate Urine VISTA NEGATIVE (< 200 ng/mL); Benzodiazepine Urine VISTA POSITIVE (< 200 ng/mL); Cocaine Urine VISTA NEGATIVE (< 300 ng/mL); Ecstacy Urine VISTA NEGATIVE (< 500 ng/mL); Methadone Urine VISTA NEGATIVE (< 300 ng/mL); PCP Urine VISTA NEGATIVE (< 25 ng/mL); THC Urine VISTA NEGATIVE (< 50 ng/mL); Vista UDS pH Range 6
== END ==
PROVIDERS: Visit Provider Anesthesiology
DX: F11.20 Opioid dependence, uncomplicated (principal)
CPT/HCPCS: 80307

== ENCOUNTER 2018-03-30 09:00 | Outpatient (RCR) | payer MEDICAID, SELFPAY ==
[2018-03-08 00:54] VITALS: BP 121/77; PULSE 90; RESP 16; TEMP 35.9
[2018-03-09 11:23] VITALS: BP 132/72; PULSE 92; RESP 20; TEMP 36.7
--- NOTE | 2018-03-09 23:45 | PCM.WC.PN ---
Type of Wound Date of Service: 03/09/18 Chief Complaint: Traumatic left ischial/perineal pressure sore, Stage IV, s/p inferior gluteal thigh fasciocutaneous flap with posteriot thigh extension. History of Wound: Surgery 01/20/18 - Surgical preparation left ischial/perineal pressure sore flap wound with inferior extension onto posterior thigh with incision and drainage and excisional debridement infection abscess (252 cm2). Wound care - Silver. Operative culture - Staphylococcus epidermidis and Anaerobic cocci. She was treated with Ceftriaxone and Flagyl and has completed them. Prealbumin was 20.3 on 01/19/18. Encourage nutritional supplementation with protein to help the healing process. HgbA1c was 7.9 on 01/20/18. Today she denies fever. Her appetite is ok. Progress of Wound: Improved. - Physical Exam Vital Signs Temp Pulse Resp BP 98.0 F 92 20 H 132/72 H 03/09/18 11:23 03/09/18 11:23 03/09/18 11:23 03/09/18 11:23 Wound Measurements and Assessment WC - Nurse 1 - General Ulcer Measurement Start: 03/09/18 11:22 Freq: Status: Active Protocol: Activity Type Activity Date Activity User E-Sign Co-Sign Detail Recorded Client Recorded Date Recorded By Document 03/09/18 11:23 HE[facility]EN [id number] 03/09/18 11:52 HEAVEN 03/09/18 11:23 Wound Center Nurse 1 [Ulcer Assessment] #2 LEFT POSTERIOR THIGH -Combined with other wound No -Current Size (cm) - Length 8.0 -Current Size (cm) - Width 1.6 -Current Size (cm) - Depth 0.1 -Total Square Cm 12.80 -Date of Last Picture (Recall this 03/09/18 field) -Photo Taken Yes -Epithelialization Small 1-33% -Tunneling No -Undermining/Tunneling No -Circular Undermining No -Classification - Thickness Full Thickness without Exposed Support Structure -Exudate Amt Medium (34-66%) -Exudate Type Serosanguineous -Wound Margin Distinct, Outline Attached -Granulation Amt Large (67-100%) -Granulation Quality Hyper- granulation Red -Slough/Fibrin Yes -Necrosis Amt None Present (0 %) -Necrotic Tissue Type Adherent Slough -Structure Exposed None/Limited to Skin Breakdown -Texture (Love-wound Skin Appearance) No Abnormality -Moisture (Love-wound Skin Appearance No Abnormality ) -Color (Love-wound Skin Appearance) No Abnormality -Temperature (Love-wound Skin No Abnormality Appearance) (Pt Warm) -Tenderness on Palpation (Love-wound Yes Skin Appearance) -Ulcer Cleansing Rinsed/ Irrigated with Saline -Foul Odor after Cleansing No -Anesthetic Used 4% Lidocaine Solution #1 Left medial love-anal wound -Combined with other wound No -Current Size (cm) - Length 12.0 -Current Size (cm) - Width 5.5 -Current Size (cm) - Depth 0.2 -Total Square Cm 66.00 -Date of Last Picture (Recall this 03/09/18 field) -Photo Taken Yes -Epithelialization Small 1-33% -Tunneling No -Undermining/Tunneling No -Circular Undermining No -Classification - Thickness Full Thickness without Exposed Support Structure -Exudate Amt Large (67-100%) -Exudate Type Serosanguineous -Wound Margin Distinct, Outline Attached -Granulation Amt Large (67-100%) -Granulation Quality Red -Slough/Fibrin Yes -Necrosis Amt None Present (0 %) -Necrotic Tissue Type Adherent Slough -Structure Exposed Muscle -Texture (Love-wound Skin Appearance) No Abnormality -Moisture (Love-wound Skin Appearance No Abnormality ) -Color (Love-wound Skin Appearance) No Abnormality -Temperature (Love-wound Skin No Abnormality Appearance) (Pt Warm) -Tenderness on Palpation (Love-wound No Skin Appearance) -Ulcer Cleansing Rinsed/ Irrigated with Saline -Foul Odor after Cleansing No -Anesthetic Used 4% Lidocaine Solution WC - Nurse 2 - General Ulcer CM Notes Start: 03/09/18 11:22 Freq: Status: Active Protocol: Activity Type Activity Date Activity User E-Sign Co-Sign Detail Recorded Client Recorded Date Recorded By Document 03/09/18 12:37 SHAYNA [id number] 03/09/18 12:39 SHAYNA 03/09/18 12:37 Wound Center Nurse 2 [Procedure/Treatment] #2 LEFT POSTERIOR THIGH -Time 12:38 -Correct Patient Yes -Correct Side, Site, Position Yes -Correct Procedure Yes -Procedure Performed Yes -Type of Procedure Debridement -Clinical Debridement Subcutaneous -Post Debridement Size (cm) - Length 8 -Post Debridement Size (cm) - Width 1.8 -Post Debridement Size (cm) - Depth 0.1 -Total Square Cm 14.4 -Wound/Ulcer Outcome Not Healed -Ulcer Cleansing Rinsed/ Irrigated with Saline -Foul Odor after Cleansing No -Bioengineered Tissue No -Bleeding Controlled with Pressure -Treatment Response Procedure Tolerated Well #1 Left medial love-anal wound -Time 12:38 -Correct Patient Yes -Correct Side, Site, Position Yes -Correct Procedure Yes -Procedure Performed Yes -Type of Procedure Debridement -Clinical Debridement Subcutaneous -Post Debridement Size (cm) - Length 12 -Post Debridement Size (cm) - Width 5.6 -Post Debridement Size (cm) - Depth 0.2 -Total Square Cm 67.2 -Wound/Ulcer Outcome Not Healed -Ulcer Cleansing Rinsed/ Irrigated with Saline -Foul Odor after Cleansing No -Bioengineered Tissue No -Bleeding Controlled with Pressure -Treatment Response Procedure Tolerated Well [See Physician Procedure note for Specifics] Pain Scale: 0-10 Numeric [Pain] -Is Patient Pain Free? Yes Debridement Note Post-Debridement Measurements/Treatment WC - Nurse 2 - General Ulcer CM Notes Start: 03/09/18 11:22 Freq: Status: Active Protocol: Activity Type Activity Date Activity User E-Sign Co-Sign Detail Recorded Client Recorded Date Recorded By Document 03/09/18 12:37 SHAYNA [id number] 03/09/18 12:39 SHAYNA 03/09/18 12:37 Wound Center Nurse 2 #2 LEFT POSTERIOR THIGH -Time 12:38 -Correct Patient Yes -Correct Side, Site, Position Yes -Correct Procedure Yes -Procedure Performed Yes -Type of Procedure Debridement -Clinical Debridement Subcutaneous -Post Debridement Size (cm) - Length 8 -Post Debridement Size (cm) - Width 1.8 -Post Debridement Size (cm) - Depth 0.1 -Total Square Cm 14.4 -Wound/Ulcer Outcome Not Healed -Ulcer Cleansing Rinsed/ Irrigated with Saline -Foul Odor after Cleansing No -Bioengineered Tissue No -Bleeding Controlled with Pressure -Treatment Response Procedure Tolerated Well #1 Left medial love-anal wound -Time 12:38 -Correct Patient Yes -Correct Side, Site, Position Yes -Correct Procedure Yes -Procedure Performed Yes -Type of Procedure Debridement -Clinical Debridement Subcutaneous -Post Debridement Size (cm) - Length 12 -Post Debridement Size (cm) - Width 5.6 -Post Debridement Size (cm) - Depth 0.2 -Total Square Cm 67.2 -Wound/Ulcer Outcome Not Healed -Ulcer Cleansing Rinsed/ Irrigated with Saline -Foul Odor after Cleansing No -Bioengineered Tissue No -Bleeding Controlled with Pressure -Treatment Response Procedure Tolerated Well Pain Scale: 0-10 Numeric Is Patient Pain Free? Yes Wound debrided: #1 Left ischial/perineal area. Laterality: Left Wound Grade/Stage: 3. Type of Debridement: Excisional debridement Anesthesia Used: 4% Lidocaine Solution Depth: Down to and including healthy tissue, in the subcutaneous layer Percentage of wound debrided: 100 Instrument Used: 5mm curette Tissue Removed: subcutaneous tissue. Severity: Fat Layer Exposed Amount of bleeding with debridement: Mild Bleeding Controlled with: Pressure Patient tolerated procedure well - Additional Wound Wound debrided: #2 Left posterior thigh. Laterality: Left Wound Grade/Stage: 3. Type of Debridement: Excisional debridement Anesthesia Used: 4% Lidocaine Solution Depth: Down to and including healthy tissue, in the subcutaneous layer Percentage of wound debrided: 100 Instrument Used: 5mm curette Tissue Removed: subcutaneous tissue. Severity: Fat Layer Exposed Amount of bleeding with debridement: Mild Bleeding Controlled with: Pressure Patient tolerated procedure: Patient tolerated procedure well Assessment/Plan Assessment: 1. 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 3. s/p multiple debridements and VAC placement and inferior gluteal thigh fasciocutaneous flap. 4 Compromised flap medially and inferiorly with infected drainage. 5. Diabetes mellitus. 6. s/p surgical preparation left ischial/perineal pressure sore flap wound with inferior extension onto posterior thigh with incision and drainage and excisional debridement infection abscess (252 cm2). Plan: The wounds continue to improve. Continue Silver dressing changes daily. She has finished the Ceftriaxone and Flagyl. Prealbumin was 20.3 on 01/19/18. Encourage nutritional supplementation with protein to help the healing process. Followup 3 weeks.
[2018-03-30 09:26] VITALS: BP 122/77; PULSE 103; RESP 18; TEMP 36.2
--- NOTE | 2018-03-30 18:33 | PCM.WC.PN ---
Type of Wound Date of Service: 03/30/18 Chief Complaint: Traumatic left ischial/perineal pressure sore, Stage IV, s/p inferior gluteal thigh fasciocutaneous flap with posterior thigh extension. History of Wound: Surgery 01/20/18 - Surgical preparation left ischial/perineal pressure sore flap wound with inferior extension onto posterior thigh with incision and drainage and excisional debridement infection abscess (252 cm2). Wound care - Silver. Operative culture - Staphylococcus epidermidis and Anaerobic cocci. She was treated with Ceftriaxone and Flagyl and has completed them. Prealbumin was 20.3 on 01/19/18. Encourage nutritional supplementation with protein to help the healing process. HgbA1c was 7.9 on 01/20/18. Today she denies fever. Her appetite is ok. Progress of Wound: Improved. - Physical Exam Vital Signs Temp Pulse Resp BP 97.1 F L 103 H 18 122/77 H 03/30/18 09:26 03/30/18 09:26 03/30/18 09:26 03/30/18 09:26 Wound Measurements and Assessment WC - Nurse 1 - General Ulcer Measurement Start: 03/09/18 11:22 Freq: Status: Active Protocol: Activity Type Activity Date Activity User E-Sign Co-Sign Detail Recorded Client Recorded Date Recorded By Document 03/30/18 09:26 [id number] 03/30/18 09:43 03/30/18 09:26 Wound Center Nurse 1 [Ulcer Assessment] #2 LEFT POSTERIOR THIGH -Combined with other wound No -Current Size (cm) - Length 15 -Current Size (cm) - Width 0.5 -Current Size (cm) - Depth 0.1 -Total Square Cm 7.5 -Photo Taken No -Epithelialization Medium 34-66% -Tunneling No -Undermining/Tunneling No -Circular Undermining No -Exudate Amt None Present (0 %) -Exudate Type Serosanguineous -Wound Margin Distinct, Outline Attached -Granulation Amt Large (67-100%) -Granulation Quality [place] Red -Slough/Fibrin Yes -Necrosis Amt None Present (0 %) -Necrotic Tissue Type Adherent Slough -Structure Exposed None/Limited to Skin Breakdown -Texture (Simona-wound Skin Appearance) Scarring -Moisture (Simona-wound Skin Appearance No Abnormality ) Assessed -Color (Simona-wound Skin Appearance) No Abnormality Assessed -Temperature (Simona-wound Skin No Abnormality Appearance) (Pt Warm) -Tenderness on Palpation (Simona-wound Yes Skin Appearance) -Ulcer Cleansing Rinsed/ Irrigated with Saline -Foul Odor after Cleansing No -Anesthetic Used 5% Lidocaine Gel #1 Left medial simona-anal wound -Combined with other wound No -Current Size (cm) - Length 9.7 -Current Size (cm) - Width 2.1 -Current Size (cm) - Depth 0.2 -Total Square Cm 20.37 -Tunneling No -Undermining/Tunneling No -Circular Undermining No -Exudate Amt Medium (34-66%) -Exudate Type Serosanguineous -Wound Margin Distinct, Outline Attached -Granulation Amt Large (67-100%) -Granulation Quality [place] Red -Necrosis Amt None Present (0 %) -Necrotic Tissue Type Adherent Slough -Structure Exposed None/Limited to Skin Breakdown -Texture (Simona-wound Skin Appearance) No Abnormality Assessed -Moisture (Simona-wound Skin Appearance No Abnormality ) Assessed -Color (Simona-wound Skin Appearance) No Abnormality Assessed -Temperature (Simona-wound Skin No Abnormality Appearance) (Pt Warm) -Tenderness on Palpation (Simona-wound Yes Skin Appearance) -Ulcer Cleansing Rinsed/ Irrigated with Saline -Foul Odor after Cleansing No -Anesthetic Used 5% Lidocaine Gel [Edema Assessment] -Lower Limb Edema Present NA WC - Nurse 2 - General Ulcer CM Notes Start: 03/09/18 11:22 Freq: Status: Active Protocol: Activity Type Activity Date Activity User E-Sign Co-Sign Detail Recorded Client Recorded Date Recorded By Document 03/30/18 10:08 SHAYNA [id number] 03/30/18 10:11 SHAYNA 03/30/18 10:08 Wound Center Nurse 2 [Procedure/Treatment] #2 LEFT POSTERIOR THIGH -Time 10:09 -Correct Patient Yes -Correct Side, Site, Position Yes -Correct Procedure Yes -Procedure Performed Yes -Type of Procedure Debridement -Clinical Debridement Subcutaneous -Post Debridement Size (cm) - Length 15 -Post Debridement Size (cm) - Width 0.6 -Post Debridement Size (cm) - Depth 0.1 -Total Square Cm 9.0 -Wound/Ulcer Outcome Not Healed -Ulcer Cleansing Rinsed/ Irrigated with Saline -Foul Odor after Cleansing No -Bioengineered Tissue No -Bleeding Controlled with Pressure -Treatment Response Procedure Tolerated Well #1 Left medial simona-anal wound -Time 10:10 -Correct Patient Yes -Correct Side, Site, Position Yes -Correct Procedure Yes -Procedure Performed Yes -Type of Procedure Debridement -Clinical Debridement Subcutaneous -Post Debridement Size (cm) - Length 9.8 -Post Debridement Size (cm) - Width 2.2 -Post Debridement Size (cm) - Depth 0.2 -Total Square Cm 21.56 -Wound/Ulcer Outcome Not Healed -Ulcer Cleansing Rinsed/ Irrigated with Saline -Foul Odor after Cleansing No -Bioengineered Tissue No -Bleeding Controlled with Pressure -Treatment Response Procedure Tolerated Well [See Physician Procedure note for Specifics] Pain Scale: 0-10 Numeric [Pain] -Is Patient Pain Free? Yes Debridement Note Post-Debridement Measurements/Treatment WC - Nurse 2 - General Ulcer CM Notes Start: 03/09/18 11:22 Freq: Status: Active Protocol: Activity Type Activity Date Activity User E-Sign Co-Sign Detail Recorded Client Recorded Date Recorded By Document 03/09/18 12:37 [id number] 03/09/18 12:39 Document 03/30/18 10:08 [id number] 03/30/18 10:11 03/09/18 03/30/18 12:37 10:08 Wound Center Nurse 2 #2 LEFT POSTERIOR THIGH -Time 12:38 10:09 -Correct Patient Yes Yes -Correct Side, Site, Position Yes Yes -Correct Procedure Yes Yes -Procedure Performed Yes Yes -Type of Procedure Debridement Debridement -Clinical Debridement Subcutaneous Subcutaneous -Post Debridement Size (cm) - Length 8 15 -Post Debridement Size (cm) - Width 1.8 0.6 -Post Debridement Size (cm) - Depth 0.1 0.1 -Total Square Cm 14.4 9.0 -Wound/Ulcer Outcome Not Healed Not Healed -Ulcer Cleansing Rinsed/ Rinsed/ Irrigated with Irrigated with Saline Saline -Foul Odor after Cleansing No No -Bioengineered Tissue No No -Bleeding Controlled with Pressure Pressure -Treatment Response Procedure Procedure Tolerated Well Tolerated Well #1 Left medial simona-anal wound -Time 12:38 10:10 -Correct Patient Yes Yes -Correct Side, Site, Position Yes Yes -Correct Procedure Yes Yes -Procedure Performed Yes Yes -Type of Procedure Debridement Debridement -Clinical Debridement Subcutaneous Subcutaneous -Post Debridement Size (cm) - Length 12 9.8 -Post Debridement Size (cm) - Width 5.6 2.2 -Post Debridement Size (cm) - Depth 0.2 0.2 -Total Square Cm 67.2 21.56 -Wound/Ulcer Outcome Not Healed Not Healed -Ulcer Cleansing Rinsed/ Rinsed/ Irrigated with Irrigated with Saline Saline -Foul Odor after Cleansing No No -Bioengineered Tissue No No -Bleeding Controlled with Pressure Pressure -Treatment Response Procedure Procedure Tolerated Well Tolerated Well Pain Scale: 0-10 Numeric Is Patient Pain Free? Yes Yes Wound debrided: #1 Left ischial/perineal area. Laterality: Left Wound Grade/Stage: 3. Type of Debridement: Excisional debridement Anesthesia Used: 4% Lidocaine Solution Depth: Down to and including healthy tissue, in the subcutaneous layer Percentage of wound debrided: 100 Instrument Used: 5mm curette Tissue Removed: subcutaneous tissue. Severity: Fat Layer Exposed Amount of bleeding with debridement: Mild Bleeding Controlled with: Pressure Patient tolerated procedure well - Additional Wound Wound debrided: #2 Left posterior thigh. Laterality: Left Wound Grade/Stage: 3. Type of Debridement: Excisional debridement Anesthesia Used: 4% Lidocaine Solution Depth: Down to and including healthy tissue, in the subcutaneous layer Percentage of wound debrided: 100 Instrument Used: 5mm curette Tissue Removed: subcutaneous tissue. Severity: Fat Layer Exposed Amount of bleeding with debridement: Mild Bleeding Controlled with: Pressure Patient tolerated procedure: Patient tolerated procedure well Assessment/Plan Assessment: 1. 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 3. s/p multiple debridements and VAC placement and inferior gluteal thigh fasciocutaneous flap. 4 Compromised flap medially and inferiorly with infected drainage. 5. Diabetes mellitus. 6. s/p surgical preparation left ischial/perineal pressure sore flap wound with inferior extension onto posterior thigh with incision and drainage and excisional debridement infection abscess (252 cm2). Plan: The wounds continue to improve. Continue Silver dressing changes daily. She has finished the Ceftriaxone and Flagyl. Prealbumin was 20.3 on 01/19/18. Encourage nutritional supplementation with protein to help the healing process. Followup 4 weeks.
== END 2018-04-07 23:59 ==
LOC: WC 09:00
PROVIDERS: Family Provider Internal Medicine; PCP Internal Medicine; Visit Provider Surgery
DX: E11.622 Type 2 diabetes mellitus with other skin ulcer (principal); L89.224 Pressure ulcer of left hip, stage 4; T86.822 Skin graft (allograft) (autograft) infection
CPT/HCPCS: 11042; 11045

== ENCOUNTER → 2018-04-02 12:07 | Outpatient (CLI) | payer MEDICAID, SELFPAY ==
[2018-04-02 13:01] LABS: Anion Gap 4 (5-15); BUN 18 mg/dL (7-18); BUN/Creat Ratio 25.7 RATIO (10-20); Calcium,Total 8.6 mg/dL (8.5-10.1); Chloride 103 mmol/L (98-107); Cholesterol 178 mg/dL (200); EST Glomerular Filtration Rate 96 mL/min (>60); Est Glom Filt Rate - Afr Amer 116 mL/min (>60); Glucose 278 mg/dL (74-106); High Density Lipoprotein 75 mg/dL; Microalbumin,Random Urine 27.4 mg/L (NO RANGE EST.); Microalbumin:Creatinine Ratio 35.2 mg/g CRE (<30 mg/g CRE); Potassium 4.6 mmol/L (3.5-5.1); Sodium Level 136 mmol/L (136-145); Triglycerides 67 mg/dL; Very Low Density Lipoprotein 13 mg/dL (5-40)
[2018-04-02 13:06] LABS: Hemoglobin A1c 9.3 % (4.2-6.3)
== END ==
PROVIDERS: Family Provider Internal Medicine; PCP Internal Medicine; Visit Provider Internal Medicine
DX: E78.5 Hyperlipidemia, unspecified (principal); E11.9 Type 2 diabetes mellitus without complications
CPT/HCPCS: 36415; 80048; 80061; 82043; 82570; 83036

== ENCOUNTER 2018-04-27 08:12 | Outpatient (RCR) | payer MEDICAID, SELFPAY ==
[2018-04-08 00:53] VITALS: BP 122/77; PULSE 103; RESP 18; TEMP 36.2
[2018-04-27 15:00] VITALS: BP 140/80; PULSE 92; RESP 16; TEMP 36.8
--- NOTE | 2018-04-27 22:44 | PCM.WC.PN ---
Type of Wound Date of Service: 04/27/18 Chief Complaint: Traumatic left ischial/perineal pressure sore, Stage IV, s/p inferior gluteal thigh fasciocutaneous flap with posterior thigh extension. History of Wound: Surgery 01/20/18 - Surgical preparation left ischial/perineal pressure sore flap wound with inferior extension onto posterior thigh with incision and drainage and excisional debridement infection abscess (252 cm2). Wound care - Silver. Operative culture - Staphylococcus epidermidis and Anaerobic cocci. She was treated with Ceftriaxone and Flagyl and has completed them. Prealbumin was 20.3 on 01/19/18. Encourage nutritional supplementation with protein to help the healing process. HgbA1c was 7.9 on 01/20/18. Today she denies fever. Her appetite is ok. Progress of Wound: Improved. - Physical Exam Vital Signs Temp Pulse Resp BP 98.3 F 92 16 140/80 H 04/27/18 15:00 04/27/18 15:00 04/27/18 15:00 04/27/18 15:00 Wound Measurements and Assessment WC - Nurse 1 - General Ulcer Measurement Start: 04/27/18 15:00 Freq: Status: Active Protocol: Activity Type Activity Date Activity User E-Sign Co-Sign Detail Recorded Client Recorded Date Recorded By Document 04/27/18 15:00 [id number] 04/27/18 15:03 04/27/18 15:00 Wound Center Nurse 1 [Ulcer Assessment] #2 LEFT POSTERIOR THIGH -Combined with other wound No -Current Size (cm) - Length 0.4 -Current Size (cm) - Width 0.6 -Current Size (cm) - Depth 0.1 -Total Square Cm 0.24 -Date of Last Picture (Recall this 04/27/18 field) -Photo Taken Yes -Epithelialization Medium 34-66% -Tunneling No -Undermining/Tunneling No -Circular Undermining No -Exudate Amt Small (1-33%) -Exudate Type Serosanguineous -Wound Margin Distinct, Outline Attached -Granulation Amt Medium (34-66%) -Granulation Quality Pale [place] -Slough/Fibrin Yes -Necrosis Amt None Present (0 %) -Necrotic Tissue Type Adherent Slough -Structure Exposed None/Limited to Skin Breakdown -Texture (Simona-wound Skin Appearance) Assessed Scarring -Moisture (Simona-wound Skin Appearance No Abnormality ) Assessed -Color (Simona-wound Skin Appearance) No Abnormality Assessed -Temperature (Simona-wound Skin No Abnormality Appearance) (Pt Warm) -Tenderness on Palpation (Simona-wound Yes Skin Appearance) -Ulcer Cleansing Rinsed/ Irrigated with Saline -Foul Odor after Cleansing No -Anesthetic Used 4% Lidocaine Solution #1 Left medial simona-anal wound -Combined with other wound No -Current Size (cm) - Length 1.5 -Current Size (cm) - Width 0.3 -Current Size (cm) - Depth 0.1 -Total Square Cm 0.45 -Date of Last Picture (Recall this 04/27/18 field) -Photo Taken Yes -Epithelialization Medium 34-66% -Tunneling No -Undermining/Tunneling No -Circular Undermining No -Exudate Amt None Present (0 %) -Wound Margin Distinct, Outline Attached -Granulation Amt Medium (34-66%) -Granulation Quality Pale [place] -Slough/Fibrin Yes -Necrosis Amt None Present (0 %) -Necrotic Tissue Type Adherent Slough -Temperature (Simona-wound Skin No Abnormality Appearance) (Pt Warm) -Tenderness on Palpation (Simona-wound Yes Skin Appearance) -Ulcer Cleansing Rinsed/ Irrigated with Saline -Foul Odor after Cleansing No -Anesthetic Used 4% Lidocaine Solution [Edema Assessment] -Lower Limb Edema Present NA - Nurse 2 - General Ulcer CM Notes Start: 04/27/18 15:00 Freq: Status: Active Protocol: Activity Type Activity Date Activity User E-Sign Co-Sign Detail Recorded Client Recorded Date Recorded By Document 04/27/18 15:26 [id number] 04/27/18 15:27 04/27/18 15:26 Wound Center Nurse 2 [Procedure/Treatment] #2 LEFT POSTERIOR THIGH -Time 15:26 -Correct Patient Yes -Correct Side, Site, Position Yes -Correct Procedure Yes -Procedure Performed Yes -Type of Procedure Debridement -Clinical Debridement Subcutaneous -Post Debridement Size (cm) - Length 0.5 -Post Debridement Size (cm) - Width 0.6 -Post Debridement Size (cm) - Depth 0.1 -Total Square Cm 0.30 -Wound/Ulcer Outcome Not Healed -Ulcer Cleansing Rinsed/ Irrigated with Saline -Foul Odor after Cleansing No -Bioengineered Tissue No -Bleeding Controlled with Pressure -Treatment Response Procedure Tolerated Well #1 Left medial simona-anal wound -Time 15:27 -Correct Patient Yes -Correct Side, Site, Position Yes -Correct Procedure Yes -Procedure Performed Yes -Type of Procedure Debridement -Clinical Debridement Subcutaneous -Post Debridement Size (cm) - Length 1.5 -Post Debridement Size (cm) - Width 0.4 -Post Debridement Size (cm) - Depth 0.1 -Total Square Cm 0.60 -Wound/Ulcer Outcome Not Healed -Ulcer Cleansing Rinsed/ Irrigated with Saline -Foul Odor after Cleansing No -Bioengineered Tissue No -Bleeding Controlled with Pressure -Treatment Response Procedure Tolerated Well [See Physician Procedure note for Specifics] Pain Scale: 0-10 Numeric [Pain] -Is Patient Pain Free? Yes Debridement Note Post-Debridement Measurements/Treatment WC - Nurse 2 - General Ulcer CM Notes Start: 04/27/18 15:00 Freq: Status: Active Protocol: Activity Type Activity Date Activity User E-Sign Co-Sign Detail Recorded Client Recorded Date Recorded By Document 04/27/18 15:26 [email or web address] [id number] 04/27/18 15:27 04/27/18 15:26 Wound Center Nurse 2 #2 LEFT POSTERIOR THIGH -Time 15:26 -Correct Patient Yes -Correct Side, Site, Position Yes -Correct Procedure Yes -Procedure Performed Yes -Type of Procedure Debridement -Clinical Debridement Subcutaneous -Post Debridement Size (cm) - Length 0.5 -Post Debridement Size (cm) - Width 0.6 -Post Debridement Size (cm) - Depth 0.1 -Total Square Cm 0.30 -Wound/Ulcer Outcome Not Healed -Ulcer Cleansing Rinsed/ Irrigated with Saline -Foul Odor after Cleansing No -Bioengineered Tissue No -Bleeding Controlled with Pressure -Treatment Response Procedure Tolerated Well #1 Left medial simona-anal wound -Time 15:27 -Correct Patient Yes -Correct Side, Site, Position Yes -Correct Procedure Yes -Procedure Performed Yes -Type of Procedure Debridement -Clinical Debridement Subcutaneous -Post Debridement Size (cm) - Length 1.5 -Post Debridement Size (cm) - Width 0.4 -Post Debridement Size (cm) - Depth 0.1 -Total Square Cm 0.60 -Wound/Ulcer Outcome Not Healed -Ulcer Cleansing Rinsed/ Irrigated with Saline -Foul Odor after Cleansing No -Bioengineered Tissue No -Bleeding Controlled with Pressure -Treatment Response Procedure Tolerated Well Pain Scale: 0-10 Numeric Is Patient Pain Free? Yes Wound debrided: #1 Left ischial/perineal area. Laterality: Left Wound Grade/Stage: 3. Type of Debridement: Excisional debridement Anesthesia Used: 4% Lidocaine Solution Depth: Down to and including healthy tissue, in the subcutaneous layer Percentage of wound debrided: 100 Instrument Used: 5mm curette Tissue Removed: subcutanenous tissue. Severity: Fat Layer Exposed Amount of bleeding with debridement: Mild Bleeding Controlled with: Pressure Patient tolerated procedure well - Additional Wound Wound debrided: #2 Left posterior thigh. Laterality: Left Wound Grade/Stage: 3. Type of Debridement: Excisional debridement Anesthesia Used: 4% Lidocaine Solution Depth: Down to and including healthy tissue, in the subcutaneous layer Percentage of wound debrided: 100 Instrument Used: 5mm curette Tissue Removed: subcutaneous tissue. Severity: Fat Layer Exposed Amount of bleeding with debridement: Mild Bleeding Controlled with: Pressure Patient tolerated procedure: Patient tolerated procedure well Assessment/Plan Assessment: 1. 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 3. s/p multiple debridements and VAC placement and inferior gluteal thigh fasciocutaneous flap. 4. Compromised flap medially and inferiorly with infected drainage. 5. Diabetes mellitus. 6. s/p surgical preparation left ischial/perineal pressure sore flap wound with inferior extension onto posterior thigh with incision and drainage and excisional debridement infection abscess (252 cm2). Plan: The wounds are almost healed. Will stop the Silver dressing changes daily and begin Collagen Hydrogel dressing changes daily. She has finished the Ceftriaxone and Flagyl. Prealbumin was 20.3 on 01/19/18. Encourage nutritional supplementation with protein to help the healing process. Followup 4 weeks.
== END 2018-05-08 23:59 ==
LOC: WC 08:12
PROVIDERS: Family Provider Internal Medicine; PCP Internal Medicine; Visit Provider Surgery
DX: E11.622 Type 2 diabetes mellitus with other skin ulcer (principal); L89.224 Pressure ulcer of left hip, stage 4; T86.822 Skin graft (allograft) (autograft) infection
CPT/HCPCS: 11042

== ENCOUNTER 2018-05-26 08:04 | Outpatient (RCR) | payer MEDICAID, SELFPAY ==
[2018-05-09 01:00] VITALS: BP 140/80; PULSE 92; RESP 16; TEMP 36.8
[2018-05-26 14:31] VITALS: BP 127/72; PULSE 95; RESP 18; TEMP 35.9
--- NOTE | 2018-05-26 17:54 | PCM.WC.PN ---
(1) Pressure sore of left ischium, stage 4 Status: Chronic Current Visit: Yes Code(s): L89.324 - Pressure ulcer of left buttock, stage 4 (2) Chronic pain Status: Chronic Current Visit: No Code(s): G89.29 - Other chronic pain (3) DM2 (diabetes mellitus, type 2) Status: Chronic Current Visit: Yes Code(s): E11.9 - Type 2 diabetes mellitus without complications (4) Hx of right BKA Status: Chronic Current Visit: No Code(s): Z89.511 - Acquired absence of right leg below knee (5) Nonhealing surgical wound Status: Chronic Current Visit: Yes Code(s): T81.89XA - Other complications of procedures, not elsewhere classified, initial encounter Comment: left ischial/perineal area and posterior thigh. (6) PVD (peripheral vascular disease) Status: Chronic Current Visit: Yes Code(s): I73.9 - Peripheral vascular disease, unspecified (7) Type 2 diabetes mellitus with other skin ulcer Status: Chronic Current Visit: Yes Code(s): E11.622 - Type 2 diabetes mellitus with other skin ulcer; L98.499 - Non-pressure chronic ulcer of skin of other sites with unspecified severity Type of Wound Date of Service: 05/26/18 Chief Complaint: Traumatic left ischial/perineal pressure sore, Stage IV, s/p inferior gluteal thigh fasciocutaneous flap with compromise and drainage. History of Wound: 47 year old woman comes in for further evaluation of her postop wound in her left ischial/perineal area after an inferior gluteal thigh fasciocutaneous flap on 12/04/17. 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 The surgery was done in [place]. She has since moved to [place] and presents today for further evaluation and treatment. Her wound culture from 01/06/18 showed Staphylococcus aureus and Anaerobes. She was started on Doxycycline and Flagyl will be added. She states there has been intermittent drainage from her perineal area and she has been changing the silver dressings more than once per day. She denies any fever. Progress of Wound: The left ischial/perineal wound is entirely healed. Wound is epithelialized with no signs of infection. - Physical Exam Vital Signs Temp Pulse Resp BP 96.6 F L 95 18 127/72 H 05/26/18 14:31 05/26/18 14:31 05/26/18 14:31 05/26/18 14:31 General: Alert, Oriented x3, Cooperative, No apparent distress HEENT: Atraumatic Oral: Moist Mucosa Lungs: Clear to auscultation Cardiovascular: Regular rate, Regular Rhythm Extremities: No clubbing Skin: Ulcer/ Wound - Wound is healed. Wound Measurements and Assessment WC - Nurse 1 - General Ulcer Measurement Start: 05/26/18 14:31 Freq: Status: Active Protocol: Activity Type Activity Date Activity User E-Sign Co-Sign Detail Recorded Client Recorded Date Recorded By Document 05/26/18 14:31 [id number] 05/26/18 14:36 05/26/18 14:31 Wound Center Nurse 1 [Ulcer Assessment] #2 LEFT POSTERIOR THIGH -Combined with other wound No -Current Size (cm) - Length 0 -Current Size (cm) - Width 0 -Current Size (cm) - Depth 0 -Total Square Cm 0 -Photo Taken Yes -Epithelialization Large 67-100% #1 Left medial simona-anal wound -Combined with other wound No -Current Size (cm) - Length 0 -Current Size (cm) - Width 0 -Current Size (cm) - Depth 0 -Total Square Cm 0 -Photo Taken Yes -Epithelialization Large 67-100% [Edema Assessment] -Lower Limb Edema Present NA WC - Nurse 2 - General Ulcer CM Notes Start: 05/26/18 14:31 Freq: Status: Active Protocol: Activity Type Activity Date Activity User E-Sign Co-Sign Detail Recorded Client Recorded Date Recorded By Document 05/26/18 14:37 [id number] 05/26/18 14:37 05/26/18 14:37 Pain Scale: 0-10 Numeric [Pain] -Is Patient Pain Free? Yes Neurological: Neuro grossly intact Psych/Mental Status: Normal Affect, Appropriate, Alert and oriented to time, place, person, mood and affect Debridement Note Post-Debridement Measurements/Treatment - Nurse 2 - General Ulcer CM Notes Start: 05/26/18 14:31 Freq: Status: Active Protocol: Activity Type Activity Date Activity User E-Sign Co-Sign Detail Recorded Client Recorded Date Recorded By Document 05/26/18 14:37 [id number] 05/26/18 14:37 05/26/18 14:37 Pain Scale: 0-10 Numeric Is Patient Pain Free? Yes No debridement was completed today Assessment/Plan Active Problems (Last Updated 03/30/18 @ 11:16 by Cristian Flores) Pressure sore of left ischium, stage 4 (Chronic) Type 2 diabetes mellitus with other skin ulcer (Chronic) Nonhealing surgical wound (Chronic) left ischial/perineal area and posterior thigh. PVD (peripheral vascular disease) (Chronic) DM2 (diabetes mellitus, type 2) (Chronic) Assessment: 1. Traumatic left ischial/perineal pressure sore infection, Stage IV. 2. Angeles's gangrene left ischial/perineal area. 3. s/p multiple debridements and VAC placement and inferior gluteal thigh fasciocutaneous flap. 4 Compromised flap medially and inferiorly with infected drainage. 5. Diabetes mellitus. Plan: Patient's wounds are completely healed today without any signs of infection. Discussed with patient continuing increasing her protein supplementation and massaging her healed scars to help with tension. Did discuss signs and symptoms of infection that require urgent medical attention. Given the fact that her wounds are healed, she will be discharged from the wound healing center at this time and follow-up on a as needed basis. She will follow-up in 6 months to have her colostomy reversed with general surgery. Code Visit Office Visits / Consults: [id number] OV L3 Est
--- NOTE | 2018-05-27 15:58 | PN.PCM_ITS ---
(1) Pressure sore of left ischium, stage 4 Status: Chronic Current Visit: Yes Code(s): L89.324 - Pressure ulcer of left buttock, stage 4 (2) Chronic pain Status: Chronic Current Visit: No Code(s): G89.29 - Other chronic pain (3) DM2 (diabetes mellitus, type 2) Status: Chronic Current Visit: Yes Code(s): E11.9 - Type 2 diabetes mellitus without complications (4) Hx of right BKA Status: Chronic Current Visit: No Code(s): Z89.511 - Acquired absence of right leg below knee (5) Nonhealing surgical wound Status: Chronic Current Visit: Yes Code(s): T81.89XA - Other complications of procedures, not elsewhere classified, initial encounter Comment: left ischial/perineal area and posterior thigh. (6) PVD (peripheral vascular disease) Status: Chronic Current Visit: Yes Code(s): I73.9 - Peripheral vascular disease, unspecified (7) Type 2 diabetes mellitus with other skin ulcer Status: Chronic Current Visit: Yes Code(s): E11.622 - Type 2 diabetes mellitus with other skin ulcer; L98.499 - Non-pressure chronic ulcer of skin of other sites with unspecified severity Type of Wound Date of Service: 05/26/18 Chief Complaint: Traumatic left ischial/perineal pressure sore, Stage IV, s/p inferior gluteal thigh fasciocutaneous flap with compromise and drainage. History of Wound: 47 year old woman comes in for further evaluation of her postop wound in her left ischial/perineal area after an inferior gluteal thigh fasciocutaneous flap on 12/04/17. 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 The surgery was done in [place]. She has since moved to [place] and presents today for further evaluation and treatment. Her wound culture from 01/06/18 showed Staphylococcus aureus and Anaerobes. She was started on Doxycycline and Flagyl will be added. She states there has been intermittent drainage from her perineal area and she has been changing the silver dressings more than once per day. She denies any fever. Progress of Wound: The left ischial/perineal wound is entirely healed. Wound is epithelialized with no signs of infection. - Physical Exam Vital Signs Temp Pulse Resp BP 96.6 F L 95 18 127/72 H 05/26/18 14:31 05/26/18 14:31 05/26/18 14:31 05/26/18 14:31 General: Alert, Oriented x3, Cooperative, No apparent distress HEENT: Atraumatic Oral: Moist Mucosa Lungs: Clear to auscultation Cardiovascular: Regular rate, Regular Rhythm Extremities: No clubbing Skin: Ulcer/ Wound - Wound is healed. Wound Measurements and Assessment WC - Nurse 1 - General Ulcer Measurement Start: 05/26/18 14:31 Freq: Status: Active Protocol: Activity Type Activity Date Activity User E-Sign Co-Sign Detail Recorded Client Recorded Date Recorded By Document 05/26/18 14:31 [id number] 05/26/18 14:36 05/26/18 14:31 Wound Center Nurse 1 [Ulcer Assessment] #2 LEFT POSTERIOR THIGH -Combined with other wound No -Current Size (cm) - Length 0 -Current Size (cm) - Width 0 -Current Size (cm) - Depth 0 -Total Square Cm 0 -Photo Taken Yes -Epithelialization Large 67-100% #1 Left medial simona-anal wound -Combined with other wound No -Current Size (cm) - Length 0 -Current Size (cm) - Width 0 -Current Size (cm) - Depth 0 -Total Square Cm 0 -Photo Taken Yes -Epithelialization Large 67-100% [Edema Assessment] -Lower Limb Edema Present NA WC - Nurse 2 - General Ulcer CM Notes Start: 05/26/18 14:31 Freq: Status: Active Protocol: Activity Type Activity Date Activity User E-Sign Co-Sign Detail Recorded Client Recorded Date Recorded By Document 05/26/18 14:37 [id number] 05/26/18 14:37 05/26/18 14:37 Pain Scale: 0-10 Numeric [Pain] -Is Patient Pain Free? Yes Neurological: Neuro grossly intact Psych/Mental Status: Normal Affect, Appropriate, Alert and oriented to time, place, person, mood and affect Debridement Note Post-Debridement Measurements/Treatment - Nurse 2 - General Ulcer CM Notes Start: 05/26/18 14:31 Freq: Status: Active Protocol: Activity Type Activity Date Activity User E-Sign Co-Sign Detail Recorded Client Recorded Date Recorded By Document 05/26/18 14:37 [id number] 05/26/18 14:37 05/26/18 14:37 Pain Scale: 0-10 Numeric Is Patient Pain Free? Yes No debridement was completed today Assessment/Plan Active Problems (Last Updated 03/30/18 @ 11:16 by Cristian Flores) Pressure sore of left ischium, stage 4 (Chronic) Type 2 diabetes mellitus with other skin ulcer (Chronic) Nonhealing surgical wound (Chronic) left ischial/perineal area and posterior thigh. PVD (peripheral vascular disease) (Chronic) DM2 (diabetes mellitus, type 2) (Chronic) Assessment: 1. Traumatic left ischial/perineal pressure sore infection, Stage IV. 2. Angeles's gangrene left ischial/perineal area. 3. s/p multiple debridements and VAC placement and inferior gluteal thigh fasciocutaneous flap. 4 Compromised flap medially and inferiorly with infected drainage. 5. Diabetes mellitus. Plan: Patient's wounds are completely healed today without any signs of infection. Discussed with patient continuing increasing her protein supplementation and massaging her healed scars to help with tension. Did discuss signs and symptoms of infection that require urgent medical attention. Given the fact that her wounds are healed, she will be discharged from the wound healing center at this time and follow-up on a as needed basis. She will follow-up in 6 months to have her colostomy reversed with general surgery. Code Visit Office Visits / Consults: [id number] OV L3 Est
== END 2018-06-07 23:59 ==
LOC: WC 08:04
PROVIDERS: Family Provider Internal Medicine; PCP Internal Medicine; Visit Provider Surgery
DX: Z09 Encounter for follow-up examination after completed treatment for conditions other than malignant neoplasm (principal); E11.51 Type 2 diabetes mellitus with diabetic peripheral angiopathy without gangrene; Z89.511 Acquired absence of right leg below knee
CPT/HCPCS: 99213; G0463

== ENCOUNTER 2018-06-02 18:27 | Emergency (ER) | payer MEDICAID, SELFPAY ==
[2018-06-02 18:28] VITALS: BP 138/74; PULSE 103; RESP 15; TEMP 36.7; BMI 33.5
[2018-06-02] MEDS: Acetaminophen 325 MG Tablet 650 MG PO (22:12)
--- NOTE | 2018-06-02 23:00 | ED.VISSUMM ---
- ER Visit Summary Date of Service: 06/02/18 Patient was initially seen and evaluated by Dr. Daly. I was asked to perform incision and drainage. I did perform an independent history and physical exam. Patient has an abscess to the left medial thigh. There is no surrounding cellulitis. Patient was anesthetized with 3 cc of 1% local lidocaine without epinephrine. Good anesthesia was achieved. A cruciate incision was made with a #11 blade and there was a moderate amount of purulent drainage. Loculations were broken up with curved hemostat. Patient tolerated the procedure well and there were no apparent immediate complications. This note was generated with [facility] dictation software. It may contain incorrect words, spelling, and punctuation that were not noted in review of the chart prior to signing ED Disposition - Plan for ED Patient: Chief Complaint: Abscess Referrals: Sasha Rodriguez MD [Primary Care Provider] -
--- NOTE | 2018-06-02 23:11 | ED.DCSUM_ITS ---
- ER Visit Summary Date of Service: 06/02/18 Chief Complaint: [Abscess left groin] History of Present Illness: The patient is a 47 F [presents the emergency department with a swelling to her left groin that she noticed yesterday. Patient states that it has become more painful and more swollen. Patient denies any fever. She denies any trauma to the area.] Physical Examination: [HEENT-PERRLA, EOMI. Cranial nerves II through XII grossly intact. TMs clear. Mucous membranes moist. No adenopathy. Cardiovascular-regular rate and rhythm without murmur or ectopy Lungs-clear to auscultation, chest wall stable without crepitus or subcu emphysema Abdomen-normoactive bowel sounds, soft, nontender, no rebound or rigidity, no peritoneal signs. Extremities-intact ?4, normal range of motion, normal pulses, atraumatic. Left groin-patient has a] pointing fluctuant mass measuring approximately 3 cm in diameter. There is surrounding erythema. None indicated Test Results: [] Emergency Department Course and Treatment: [Incision and drainage was performed by Dr. Wu. Please see Dr. Wu's note regarding the incision and drainage.] Treatment Plan: [Patient will be treated with Keflex] Disposition: [Discharged home in stable condition]. Patient to follow-up with primary care physician 3-5 days for wound check. Patient to return if increasing pain, redness, swelling, or condition should worsen anyway. Impression: [Left groin abscess with incision and drainage.] This note was generated with [employer] dictation software. It may contain incorrect words, spelling, and punctuation that were not noted in review of the chart prior to signing ED Disposition - Plan for ED Patient: Chief Complaint: Abscess Referrals: Sasha Rodriguez MD [Primary Care Provider] -
--- NOTE | 2018-06-02 23:11 | ED.DEP ---
ED Disposition - Plan for ED Patient: Chief Complaint: Abscess Instructions: ED Abscess IandD Prescriptions: Cephalexin [Keflex] 500 mg PO Q6 #40 cap Referrals: Sasha Rodriguez MD [Primary Care Provider] - 3-5 Days
[2018-06-02 23:15] VITALS: RESP 18; O2SAT 98
[2018-06-02] MEDS: Cephalexin 250 MG Capsule 500 MG PO (23:17)
[2018-06-02 23:18] VITALS: BP 121/62; PULSE 86; RESP 6; O2SAT 98
== END 2018-06-02 23:24 | disposition home or self-care (01) ==
PROVIDERS: Emergency Provider Emergency Medicine; Family Provider Internal Medicine; PCP Internal Medicine
DX: L02.214 Cutaneous abscess of groin (principal); B96.89 Other specified bacterial agents as the cause of diseases classified elsewhere; E11.9 Type 2 diabetes mellitus without complications; I73.9 Peripheral vascular disease, unspecified; Z79.4 Long term (current) use of insulin; Z79.82 Long term (current) use of aspirin; Z79.01 Long term (current) use of anticoagulants; Z79.899 Other long term (current) drug therapy; Z72.0 Tobacco use
CPT/HCPCS: 10060; 99283

== ENCOUNTER 2018-08-04 15:00 | Outpatient (RCR) | payer MEDICAID, SELFPAY ==
[2018-06-08 00:50] VITALS: BP 127/72; PULSE 95; RESP 18; TEMP 35.9
[2018-07-22 14:35] VITALS: BMI 33.3
[2018-07-28 14:42] VITALS: BP 148/82; PULSE 68; RESP 18; TEMP 36.7; BMI 30.4
--- NOTE | 2018-07-28 16:48 | PCM.WC.HP ---
(1) Skin ulcer of abdomen Status: Acute Code(s): L98.499 - Non-pressure chronic ulcer of skin of other sites with unspecified severity (2) DM2 (diabetes mellitus, type 2) Status: Chronic Code(s): E11.9 - Type 2 diabetes mellitus without complications (3) Hx of right BKA Status: Chronic Code(s): Z89.511 - Acquired absence of right leg below knee History of Present Illness Date of Service: 07/28/18 Chief Complaint: Traumatic left ischial/perineal pressure sore, Stage IV, s/p inferior gluteal thigh fasciocutaneous flap with compromise and drainage. History of Wound: 48 year old woman comes in for further evaluation of her left lower abdominal wound that she has had for 2 weeks. She states that it started as a pimple that she popped and then it got bigger and would not heal. She saw had seen her PCP Kirill Payton DNP and he referred her to the wound center. She has a significant history of uncontrolled DM with a right BKA and she had [facility] wound on her left ischial/perineal area after an inferior gluteal thigh fasciocutaneous flap on 12/04/17. 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 That wound healed late this summer. She denies any fevers. Past Medical History Past Medical History: Chronic Problems (Last Updated 03/30/18 @ 11:16 by Cristian Flores) Anxiety and depression (Chronic) History of gangrene (Chronic) Pressure sore of left ischium, stage 4 (Chronic) Nonhealing surgical wound (Chronic) left ischial/perineal area and posterior thigh. Hx of right BKA (Chronic) Chronic pain (Chronic) PVD (peripheral vascular disease) (Chronic) HLD (hyperlipidemia) (Chronic) DM2 (diabetes mellitus, type 2) (Chronic) Benign essential HTN (Chronic) Surgical History: - Allergies/Adverse Reactions: Allergies fentanyl Allergy (Verified 06/02/18 18:27) Other morphine Adverse Reaction (Verified 06/02/18 18:27) Upset Stomach Home Medications: Ambulatory Orders Medication Instructions Recorded Aspirin [Aspirin, Baby] 81 mg PO DAILY@0800 04/26/16 Atorvastatin Calcium [Lipitor] 40 mg PO QHS 04/26/16 Baclofen 10 mg PO TID 04/26/16 Ranitidine [Zantac] 150 mg PO BID 04/26/16 Clopidogrel Bisulfate [Plavix] 75 mg PO DAILY #30 01/30/18 Duloxetine Hcl [Cymbalta] 60 mg PO BID #60 cap 01/30/18 pantoprazole 40 mg tablet,delayed 40 mg PO QDAY 03/04/18 release buspirone 10 mg tablet 10 mg PO TID #90 tab 05/04/18 insulin detemir (U-100) 100 44 unit SC QHS #15 ml 05/04/18 unit/mL (3 mL) subcutaneous pen insulin aspart U- 100 100 unit/mL 12 unit SC TIDAC #15 ml 05/08/18 subcutaneous pen Clonazepam 0.5 mg PO BID 06/02/18 ibuprofen 600 mg tablet 600 mg PO BID PRN #30 tab 07/22/18 metformin 500 mg tablet 500 mg PO BID 07/22/18 pregabalin 100 mg capsule 100 mg PO TID 07/22/18 - Family History Maternal Family History: Family History (Last Updated 03/30/18 @ 11:20 by Cristian Flores) Father Cancer Mother Hypertension Fibromyalgia Thyroid disorder Brother Diabetes Grandmother Myocardial infarction Grandfather Cancer Diabetes Smoking Status: Current every day smoker Tobacco Use: Cigarettes Review of Systems Constitutional: Denies: Anorexia, Chills, Fever Eyes: Denies: Pain, Vision Change HEENT: Denies: Difficulty Hearing, Difficulty Swallowing, Sinus Congestion Cardiovascular: Denies: Chest Pain, Palpitations Respiratory: Denies: Cough, Shortness of Breath Musculoskeletal: Denies: Muscle pain Skin: Reports: Lesions - Left lower abdominal open area Neurological: Denies: Balance problems, Blurred vision Endocrine: Reports: Change in Body Habitus - Recent weight gain - Physical Exam Vital Signs Temp Pulse Resp BP 98.0 F 68 18 148/82 H 07/28/18 14:42 07/28/18 14:42 07/28/18 14:42 07/28/18 14:42 General: Alert, Oriented x3, Cooperative HEENT: Atraumatic, PERRLA Oral: Moist Mucosa Lungs: Clear to auscultation, Normal air movement Cardiovascular: Regular rate, Regular Rhythm Abdomen: Bowel Sounds Present, Soft, Non Tender Extremities: Capillary Refill Less than 3 Seconds, - - Right BKA Skin: Ulcer/ Wound - Left lower abdomen open area Wound Measurements and Assessment WC - Nurse 1 - General Ulcer Measurement Start: 07/28/18 12:58 Freq: Status: Active Protocol: Activity Type Activity Date Activity User E-Sign Co-Sign Detail Recorded Client Recorded Date Recorded By Document 07/28/18 14:42 DV [id number] 07/28/18 14:53 DV 07/28/18 14:42 Wound Center Nurse 1 [Ulcer Assessment] #3 LEFT LOWER ABDOMEN -Combined with other wound No -Current Size (cm) - Length 1.0 -Current Size (cm) - Width 1.5 -Current Size (cm) - Depth 0.2 -Total Square Cm 1.50 -Photo Taken Yes -Epithelialization None Present -Tunneling No -Undermining/Tunneling No -Circular Undermining No -Classification - Thickness Full Thickness without Exposed Support Structure -Exudate Amt Large (67-100%) -Exudate Type Yellow/Green -Wound Margin Flat & Intact -Granulation Amt None Present (0 %) -Granulation Quality N/A -Slough/Fibrin Yes -Necrosis Amt Small (1-33%) -Necrotic Tissue Type Adherent Slough -Structure Exposed None/Limited to Skin Breakdown -Texture (Love-wound Skin Appearance) Assessed Scarring -Moisture (Love-wound Skin Appearance Assessed ) Weeping -Color (Love-wound Skin Appearance) Assessed Erythema -Temperature (Love-wound Skin No Abnormality Appearance) (Pt Warm) -Tenderness on Palpation (Love-wound Yes Skin Appearance) -Ulcer Cleansing Rinsed/ Irrigated with Saline -Foul Odor after Cleansing Yes -Anesthetic Used 5% Lidocaine Gel [Edema Assessment] -Lower Limb Edema Present No WC - Nurse 2 - General Ulcer CM Notes Start: 07/28/18 12:58 Freq: Status: Active Protocol: Activity Type Activity Date Activity User E-Sign Co-Sign Detail Recorded Client Recorded Date Recorded By Document 07/28/18 15:26 [id number] 07/28/18 15:32 CS 07/28/18 15:26 Wound Center Nurse 2 [Procedure/Treatment] #3 LEFT LOWER ABDOMEN -Time 15:26 -Correct Patient Yes -Correct Side, Site, Position Yes -Correct Procedure Yes -Procedure Performed Yes -Type of Procedure Debridement -Clinical Debridement Subcutaneous -Post Debridement Size (cm) - Length 1.5 -Post Debridement Size (cm) - Width 1.5 -Post Debridement Size (cm) - Depth 0.1 -Total Square Cm 2.25 -Wound/Ulcer Outcome Not Healed -Ulcer Cleansing Not Cleansed -Foul Odor after Cleansing No -Bioengineered Tissue No -Bleeding Controlled with NA -Treatment Response Procedure Tolerated Well [See Physician Procedure note for Specifics] Pain Scale: 0-10 Numeric [Pain] -Is Patient Pain Free? Yes Musculoskeletal: No Tenderness to Palpation of Joints or Extremities Neurological: Neuro grossly intact Psych/Mental Status: Normal Affect, Appropriate Debridement Note Post-Debridement Measurements/Treatment WC - Nurse 2 - General Ulcer CM Notes Start: 07/28/18 12:58 Freq: Status: Active Protocol: Activity Type Activity Date Activity User E-Sign Co-Sign Detail Recorded Client Recorded Date Recorded By Document 07/28/18 15:26 [id number] 07/28/18 15:32 07/28/18 15:26 Wound Center Nurse 2 #3 LEFT LOWER ABDOMEN -Time 15:26 -Correct Patient Yes -Correct Side, Site, Position Yes -Correct Procedure Yes -Procedure Performed Yes -Type of Procedure Debridement -Clinical Debridement Subcutaneous -Post Debridement Size (cm) - Length 1.5 -Post Debridement Size (cm) - Width 1.5 -Post Debridement Size (cm) - Depth 0.1 -Total Square Cm 2.25 -Wound/Ulcer Outcome Not Healed -Ulcer Cleansing Not Cleansed -Foul Odor after Cleansing No -Bioengineered Tissue No -Bleeding Controlled with NA -Treatment Response Procedure Tolerated Well Pain Scale: 0-10 Numeric Is Patient Pain Free? Yes Wound debrided: Left lower abdomen Laterality: Left Type of Debridement: Excisional debridement Anesthesia Used: 4% Lidocaine Solution Depth: Down to and including healthy tissue, in the subcutaneous layer Percentage of wound debrided: 100 Instrument Used: 3mm curette Tissue Removed: Subcutaneous tissue and slough Severity: Limited To Skin Breakdown Amount of bleeding with debridement: Mild Bleeding Controlled with: Pressure Patient tolerated procedure well Assessment/Plan Assessment: 1. Skin ulcer of left lower abdomen. 2. Diabetes mellitus, type 2. 3. History of a right BKA. 4. History of a compromised flap. Plan: Patient was seen and examined in the wound center today and was updated on plan of care. Subcutaneous debridement was performed today. The patient tolerated the procedure well. The patient's wound care will consist of Aquacel silver to left lower abdomen ulcer. Wound cultures were collected. Patient encouraged to increase protein intake. Patient verbalized understanding. Patient will follow up at the wound healing center in 1 week. Code Visit Office Visits / Consults: [id number] OV L4 Est [id number]: [id number] Annalisa subq tissue 20 sq cm/< - 25 modifier
[2018-08-04 15:35] VITALS: BP 114/76; PULSE 93; RESP 18; TEMP 36.4; BMI 30.4
--- NOTE | 2018-08-07 10:02 | PCM.WC.PN ---
(1) Skin ulcer of abdomen Status: Acute Current Visit: Yes Code(s): L98.499 - Non-pressure chronic ulcer of skin of other sites with unspecified severity (2) DM2 (diabetes mellitus, type 2) Status: Chronic Current Visit: Yes Code(s): E11.9 - Type 2 diabetes mellitus without complications (3) Hx of right BKA Status: Chronic Current Visit: No Code(s): Z89.511 - Acquired absence of right leg below knee Type of Wound Date of Service: 08/04/18 Chief Complaint: Left lower abdomen with non healing sore from a boil that popped a few weeks ago. History of Wound: 48 year old woman comes in for further evaluation of her left lower abdominal wound that she has had for 2 weeks. She states that it started as a pimple that she popped and then it got bigger and would not heal. She saw had seen her PCP Kirill Payton DNP and he referred her to the wound center. She has a significant history of uncontrolled DM with a right BKA and she had [facility] wound on her left ischial/perineal area after an inferior gluteal thigh fasciocutaneous flap on 12/04/17. 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 That wound healed late this summer. She denies any fevers. Progress of Wound: Left lower abdomen wound is opened and pink. No change compared to last week. - Physical Exam Vital Signs Temp Pulse Resp BP 97.6 F L 93 18 114/76 08/04/18 15:35 08/04/18 15:35 08/04/18 15:35 08/04/18 15:35 General: Alert, Oriented x3, Cooperative HEENT: Atraumatic Oral: Moist Mucosa Lungs: Normal air movement Cardiovascular: Regular rate Skin: Ulcer/ Wound - Left lower abdomen red opened area. Wound Measurements and Assessment WC - Nurse 1 - General Ulcer Measurement Start: 07/28/18 12:58 Freq: Status: Active Protocol: Activity Type Activity Date Activity User E-Sign Co-Sign Detail Recorded Client Recorded Date Recorded By Document 08/04/18 15:35 TM [id number] 08/04/18 15:37 TM 08/04/18 15:35 Wound Center Nurse 1 [Ulcer Assessment] #3 LEFT LOWER ABDOMEN -Combined with other wound No -Current Size (cm) - Length 0.4 -Current Size (cm) - Width 0.9 -Current Size (cm) - Depth 0.1 -Total Square Cm 0.36 -Photo Taken No -Epithelialization Small 1-33% -Tunneling No -Undermining/Tunneling No -Circular Undermining No -Classification - Thickness Full Thickness without Exposed Support Structure -Exudate Amt Small (1-33%) -Exudate Type Serosanguineous -Wound Margin Distinct, Outline Attached -Granulation Amt Medium (34-66%) -Granulation Quality Donna -Slough/Fibrin Yes -Necrosis Amt Medium (34-66%) -Necrotic Tissue Type Adherent Slough -Structure Exposed Fascia Fat Layer Exposed -Texture (Love-wound Skin Appearance) No Abnormality Assessed -Moisture (Love-wound Skin Appearance No Abnormality ) Assessed -Color (Love-wound Skin Appearance) No Abnormality Assessed -Temperature (Love-wound Skin No Abnormality Appearance) (Pt Warm) -Tenderness on Palpation (Love-wound No Skin Appearance) -Ulcer Cleansing Rinsed/ Irrigated with Saline -Foul Odor after Cleansing No -Anesthetic Used 5% Lidocaine Gel [Edema Assessment] -Lower Limb Edema Present No WC - Nurse 2 - General Ulcer CM Notes Start: 07/28/18 12:58 Freq: Status: Active Protocol: Activity Type Activity Date Activity User E-Sign Co-Sign Detail Recorded Client Recorded Date Recorded By Document 08/04/18 16:09 [email or web address] [id number] 08/04/18 16:12 [email or web address] 08/04/18 16:09 Wound Center Nurse 2 [Procedure/Treatment] #3 LEFT LOWER ABDOMEN -Time 16:10 -Correct Patient Yes -Correct Side, Site, Position Yes -Correct Procedure Yes -Procedure Performed Yes -Type of Procedure Debridement -Clinical Debridement Subcutaneous -Post Debridement Size (cm) - Length 1.0 -Post Debridement Size (cm) - Width 1.5 -Post Debridement Size (cm) - Depth 0.1 -Total Square Cm 1.50 -Wound/Ulcer Outcome Not Healed -Ulcer Cleansing Rinsed/ Irrigated with Saline -Foul Odor after Cleansing No -Bioengineered Tissue No -Bleeding Controlled with Pressure -Treatment Response Procedure Tolerated Well [See Physician Procedure note for Specifics] Pain Scale: 0-10 Numeric [Pain] -Is Patient Pain Free? Yes Musculoskeletal: No Tenderness to Palpation of Joints or Extremities, No Muscle Wasting Neurological: Neuro grossly intact Psych/Mental Status: Normal Affect, Appropriate Debridement Note Post-Debridement Measurements/Treatment WC - Nurse 2 - General Ulcer CM Notes Start: 07/28/18 12:58 Freq: Status: Active Protocol: Activity Type Activity Date Activity User E-Sign Co-Sign Detail Recorded Client Recorded Date Recorded By Document 07/28/18 15:26 [id number] 07/28/18 15:32 Document 08/04/18 16:09 [id number] 08/04/18 16:12 07/28/18 08/04/18 15:26 16:09 Wound Center Nurse 2 #3 LEFT LOWER ABDOMEN -Time 15:26 16:10 -Correct Patient Yes Yes -Correct Side, Site, Position Yes Yes -Correct Procedure Yes Yes -Procedure Performed Yes Yes -Type of Procedure Debridement Debridement -Clinical Debridement Subcutaneous Subcutaneous -Post Debridement Size (cm) - Length 1.5 1.0 -Post Debridement Size (cm) - Width 1.5 1.5 -Post Debridement Size (cm) - Depth 0.1 0.1 -Total Square Cm 2.25 1.50 -Wound/Ulcer Outcome Not Healed Not Healed -Ulcer Cleansing Not Cleansed Rinsed/ Irrigated with Saline -Foul Odor after Cleansing No No -Bioengineered Tissue No No -Bleeding Controlled with NA Pressure -Treatment Response Procedure Procedure Tolerated Well Tolerated Well Pain Scale: 0-10 Numeric Is Patient Pain Free? Yes Yes Wound debrided: Left lower abdomen Laterality: Left Type of Debridement: Excisional debridement Anesthesia Used: 4% Lidocaine Solution Depth: Down to and including healthy tissue, in the subcutaneous layer Percentage of wound debrided: 100 Instrument Used: 3mm curette Tissue Removed: Subcutaneous tissue and slough Severity: Fat Layer Exposed Amount of bleeding with debridement: None Bleeding Controlled with: Pressure Patient tolerated procedure well Assessment/Plan Active Problems (Last Updated 03/30/18 @ 11:16 by Cristian Flores) Skin ulcer of abdomen (Acute) DM2 (diabetes mellitus, type 2) (Chronic) Assessment: 1. Skin ulcer of left lower abdomen. 2. Diabetes mellitus, type 2. 3. History of a right BKA. 4. History of a compromised flap. Plan: Patient was seen and examined in the wound center today and was updated on plan of care. Subcutaneous debridement was performed today. The patient tolerated the procedure well. The patient's wound care will consist of Aquacel silver to left lower abdomen ulcer. Wound cultures from 07/28/18 showed Staphylococcus aureus and Sthaphylococcus epidermidis. She was started on Clindamycin and a probiotic (she did not want Doxycycline because it causes her to have severe diarrhea). Patient encouraged to increase protein intake. Patient verbalized understanding. Patient will follow up at the wound healing center in 1 week. Code Visit 111xxx-113xx: [id number] Annalisa subq tissue 20 sq cm/<
== END 2018-08-07 23:59 ==
LOC: WC 15:00
PROVIDERS: Family Provider Internal Medicine; PCP Internal Medicine; Visit Provider Surgery
DX: E11.622 Type 2 diabetes mellitus with other skin ulcer (principal); Z89.511 Acquired absence of right leg below knee; E11.65 Type 2 diabetes mellitus with hyperglycemia; I10 Essential (primary) hypertension; E11.51 Type 2 diabetes mellitus with diabetic peripheral angiopathy without gangrene; Z79.02 Long term (current) use of antithrombotics/antiplatelets; Z79.899 Other long term (current) drug therapy; Z79.4 Long term (current) use of insulin; F17.210 Nicotine dependence, cigarettes, uncomplicated; L98.491 Non-pressure chronic ulcer of skin of other sites limited to breakdown of skin
CPT/HCPCS: 11042; 87070; 87075; 87077; 87186; 87205; 99214; G0463

== ENCOUNTER 2018-08-11 08:51 | Outpatient (RCR) | payer MEDICAID, SELFPAY ==
[2018-08-08 00:15] VITALS: BP 114/76; PULSE 93; RESP 18; TEMP 36.4
[2018-08-11 14:11] VITALS: BP 124/79; PULSE 89; RESP 18; TEMP 35.9; BMI 30.4
--- NOTE | 2018-08-11 16:25 | PN.PCM_ITS ---
(1) Skin ulcer of abdomen Status: Acute Current Visit: Yes Code(s): L98.499 - Non-pressure chronic ulcer of skin of other sites with unspecified severity (2) DM2 (diabetes mellitus, type 2) Status: Chronic Current Visit: Yes Code(s): E11.9 - Type 2 diabetes mellitus without complications Type of Wound Date of Service: 08/11/18 Chief Complaint: Left lower abdomen with non healing sore from a boil that popped a few weeks ago. History of Wound: 48 year old woman comes in for further evaluation of her left lower abdominal wound that she has had for 2 weeks. She states that it started as a pimple that she popped and then it got bigger and would not heal. She saw had seen her PCP Kirill Payton DNP and he referred her to the wound center. She has a significant history of uncontrolled DM with a right BKA and she had previously been seen at the wound center for her wound on her left ischial/perineal area after an inferior gluteal thigh fasciocutaneous flap on 12/04/17. 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 That wound healed late this summer. She denies any fevers. Progress of Wound: Left lower abdomen ulcer is much improved and almost healed. - Physical Exam Vital Signs Temp Pulse Resp BP 96.6 F L 89 18 124/79 H 08/11/18 14:11 08/11/18 14:11 08/11/18 14:11 08/11/18 14:11 General: Alert, Oriented x3, Cooperative HEENT: Atraumatic Oral: Moist Mucosa Lungs: Normal air movement Cardiovascular: Regular rate Extremities: No edema Skin: Ulcer/ Wound - Left lower abdominal wound is almost completely healed Wound Measurements and Assessment WC - Nurse 1 - General Ulcer Measurement Start: 08/11/18 10:22 Freq: Status: Active Protocol: Activity Type Activity Date Activity User E-Sign Co-Sign Detail Recorded Client Recorded Date Recorded By Document 08/11/18 14:11 DL [id number] 08/11/18 14:16 DL 08/11/18 14:11 Wound Center Nurse 1 [Ulcer Assessment] #3 LEFT LOWER ABDOMEN -Current Size (cm) - Length 0.2 -Current Size (cm) - Width 0.3 -Current Size (cm) - Depth 0.1 -Total Square Cm 0.06 -Photo Taken No -Exudate Amt None Present (0 %) -Wound Margin Distinct, Outline Attached -Granulation Amt Small (1-33%) -Granulation Quality Pale [place] -Necrosis Amt None Present (0 %) -Texture (Love-wound Skin Appearance) Scarring -Moisture (Love-wound Skin Appearance No Abnormality ) -Color (Love-wound Skin Appearance) No Abnormality -Temperature (Love-wound Skin No Abnormality Appearance) (Pt Warm) -Ulcer Cleansing Rinsed/ Irrigated with Saline -Foul Odor after Cleansing No -Anesthetic Used 4% Lidocaine Solution - Nurse 2 - General Ulcer CM Notes Start: 08/11/18 10:22 Freq: Status: Active Protocol: Activity Type Activity Date Activity User E-Sign Co-Sign Detail Recorded Client Recorded Date Recorded By Document 08/11/18 15:02 [id number] 08/11/18 15:03 08/11/18 15:02 Wound Center Nurse 2 [Procedure/Treatment] -Time 15:02 -Correct Patient Yes -Correct Side, Site, Position Yes -Correct Procedure Yes -Procedure Performed Yes -Type of Procedure Debridement -Clinical Debridement Subcutaneous -Post Debridement Size (cm) - Length 0.3 -Post Debridement Size (cm) - Width 0.6 -Post Debridement Size (cm) - Depth 0.1 -Total Square Cm 0.18 -Wound/Ulcer Outcome Not Healed -Ulcer Cleansing Rinsed/ Irrigated with Saline -Foul Odor after Cleansing No -Bioengineered Tissue No -Bleeding Controlled with Pressure -Offloading No -Treatment Response Procedure Tolerated Well [See Physician Procedure note for Specifics] Pain Scale: 0-10 Numeric [Pain] -Is Patient Pain Free? Yes Musculoskeletal: No Tenderness to Palpation of Joints or Extremities Psych/Mental Status: Normal Affect, Appropriate, Agitated Debridement Note Post-Debridement Measurements/Treatment - Nurse 2 - General Ulcer CM Notes Start: 08/11/18 10:22 Freq: Status: Active Protocol: Activity Type Activity Date Activity User E-Sign Co-Sign Detail Recorded Client Recorded Date Recorded By Document 08/11/18 15:02 [id number] 08/11/18 15:03 08/11/18 15:02 Wound Center Nurse 2 #3 LEFT LOWER ABDOMEN -Time 15:02 -Correct Patient Yes -Correct Side, Site, Position Yes -Correct Procedure Yes -Procedure Performed Yes -Type of Procedure Debridement -Clinical Debridement Subcutaneous -Post Debridement Size (cm) - Length 0.3 -Post Debridement Size (cm) - Width 0.6 -Post Debridement Size (cm) - Depth 0.1 -Total Square Cm 0.18 -Wound/Ulcer Outcome Not Healed -Ulcer Cleansing Rinsed/ Irrigated with Saline -Foul Odor after Cleansing No -Bioengineered Tissue No -Bleeding Controlled with Pressure -Offloading No -Treatment Response Procedure Tolerated Well Pain Scale: 0-10 Numeric Is Patient Pain Free? Yes Wound debrided: Left lower abdomen ulcer Laterality: Left Type of Debridement: Excisional debridement Anesthesia Used: 4% Lidocaine Solution Depth: Down to and including healthy tissue, in the subcutaneous layer Percentage of wound debrided: 100 Instrument Used: 3mm curette Tissue Removed: Subcutaneous tissue and slough Severity: Limited To Skin Breakdown Amount of bleeding with debridement: Mild Bleeding Controlled with: Pressure Patient tolerated procedure well Assessment/Plan Active Problems (Last Updated 03/30/18 @ 11:16 by Cristian Flores) Skin ulcer of abdomen (Acute) DM2 (diabetes mellitus, type 2) (Chronic) Assessment: 1. Skin ulcer of left lower abdomen. 2. Diabetes mellitus, type 2. 3. History of a right BKA. 4. History of a compromised flap. Plan: Patient was seen and examined in the wound center today and was updated on plan of care. Subcutaneous debridement was performed today. The patient tolerated the procedure well. Her left lower abdomenal ulcer is almost healed. The patient's wound care will consist of Aquacel silver to left lower abdomen ulcer. Wound cultures from 07/28/18 showed Staphylococcus aureus and Sthaphylococcus epidermidis. She continues Clindamycin and probiotic. Patient encouraged to increase protein intake. Patient verbalized understanding. Patient will follow up at the wound healing center in 1 week. Code Visit 111xxx-113xx: [id number] Annalisa subq tissue 20 sq cm/<
== END 2018-09-07 23:59 ==
LOC: WC 08:51
PROVIDERS: Family Provider Internal Medicine; PCP Internal Medicine; Visit Provider Surgery
DX: E11.622 Type 2 diabetes mellitus with other skin ulcer (principal); L98.491 Non-pressure chronic ulcer of skin of other sites limited to breakdown of skin; E11.65 Type 2 diabetes mellitus with hyperglycemia; Z89.511 Acquired absence of right leg below knee
CPT/HCPCS: 11042

== ENCOUNTER 2018-09-15 12:59 | Outpatient (RCR) | payer MEDICAID, SELFPAY ==
[2018-08-24 11:56] VITALS: BMI 30.4
[2018-09-08 00:25] VITALS: BP 124/79; PULSE 89; RESP 18; TEMP 35.9
[2018-09-15 13:00] VITALS: BP 126/77; PULSE 102; RESP 16; TEMP 36.6; BMI 30.4
--- NOTE | 2018-09-15 13:22 | PCM.WC.PN ---
(1) Skin ulcer of abdomen Status: Acute Current Visit: Yes Code(s): L98.499 - Non-pressure chronic ulcer of skin of other sites with unspecified severity (2) DM2 (diabetes mellitus, type 2) Status: Chronic Current Visit: Yes Code(s): E11.9 - Type 2 diabetes mellitus without complications (3) Hx of right BKA Status: Chronic Current Visit: No Code(s): Z89.511 - Acquired absence of right leg below knee Type of Wound Date of Service: 09/15/18 Chief Complaint: Left lower abdomen with non healing sore from a boil that popped a few weeks ago. History of Wound: 48 year old woman comes in for further evaluation of her left lower abdominal wound that she has had for 2 weeks. She states that it started as a pimple that she popped and then it got bigger and would not heal. She saw had seen her PCP Kirill Payton DNP and he referred her to the wound center. She has a significant history of uncontrolled DM with a right BKA and she had previously been seen at the wound center for her wound on her left ischial/perineal area after an inferior gluteal thigh fasciocutaneous flap on 12/04/17. 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 That wound healed late this summer. She denies any fevers. Progress of Wound: Wound is healed. - Physical Exam Vital Signs Temp Pulse Resp BP 97.8 F 102 H 16 126/77 H 09/15/18 13:00 09/15/18 13:00 09/15/18 13:00 09/15/18 13:00 General: Alert, Oriented x3, Cooperative HEENT: Atraumatic Oral: Moist Mucosa Extremities: No edema Skin: Ulcer/ Wound - Left lower quadrant opened area is healed. Wound Measurements and Assessment WC - Nurse 1 - General Ulcer Measurement Start: 09/15/18 13:00 Freq: Status: Active Protocol: Activity Type Activity Date Activity User E-Sign Co-Sign Detail Recorded Client Recorded Date Recorded By Document 09/15/18 13:00 [id number] 09/15/18 13:02 09/15/18 13:00 Wound Center Nurse 1 [Ulcer Assessment] #3 LEFT LOWER ABDOMEN -Combined with other wound No -Current Size (cm) - Length 0.1 -Current Size (cm) - Width 0.1 -Current Size (cm) - Depth 0.1 -Total Square Cm 0.01 -Date of Last Picture (Recall this 09/15/18 field) -Photo Taken Yes -Epithelialization Large 67-100% WC - Nurse 2 - General Ulcer CM Notes Start: 09/15/18 13:00 Freq: Status: Active Protocol: Activity Type Activity Date Activity User E-Sign Co-Sign Detail Recorded Client Recorded Date Recorded By Document 09/15/18 13:12 [id number] 09/15/18 13:13 09/15/18 13:12 Pain Scale: 0-10 Numeric [Pain] -Is Patient Pain Free? Yes Debridement Note Post-Debridement Measurements/Treatment SOL - Nurse 2 - General Ulcer CM Notes Start: 09/15/18 13:00 Freq: Status: Active Protocol: Activity Type Activity Date Activity User E-Sign Co-Sign Detail Recorded Client Recorded Date Recorded By Document 09/15/18 13:12 [id number] 09/15/18 13:13 09/15/18 13:12 Pain Scale: 0-10 Numeric Is Patient Pain Free? Yes No debridement was completed today Assessment/Plan Active Problems (Last Updated 03/30/18 @ 11:16 by Cristian Flores) Skin ulcer of abdomen (Acute) DM2 (diabetes mellitus, type 2) (Chronic) Assessment: 1. Skin ulcer of left lower abdomen. 2. Diabetes mellitus, type 2. 3. History of a right BKA. 4. History of a compromised flap. Plan: Patient was seen and examined in the wound center today. Her LLQ abdominal ulcer is now healed. Wound cultures from 07/28/18 showed Staphylococcus aureus and Sthaphylococcus epidermidis. Her bacterial infection has resolved and she has completed her antibiotic. She is discharged today from the wound healing center. Code Visit Office Visits / Consults: [id number] OV L2 Est
--- NOTE | 2018-09-15 13:27 | PN.PCM_ITS ---
(1) Skin ulcer of abdomen Status: Acute Current Visit: Yes Code(s): L98.499 - Non-pressure chronic ulcer of skin of other sites with unspecified severity (2) DM2 (diabetes mellitus, type 2) Status: Chronic Current Visit: Yes Code(s): E11.9 - Type 2 diabetes mellitus without complications (3) Hx of right BKA Status: Chronic Current Visit: No Code(s): Z89.511 - Acquired absence of right leg below knee Type of Wound Date of Service: 09/15/18 Chief Complaint: Left lower abdomen with non healing sore from a boil that popped a few weeks ago. History of Wound: 48 year old woman comes in for further evaluation of her left lower abdominal wound that she has had for 2 weeks. She states that it started as a pimple that she popped and then it got bigger and would not heal. She saw had seen her PCP Kirill Payton DNP and he referred her to the wound center. She has a significant history of uncontrolled DM with a right BKA and she had previously been seen at the wound center for her wound on her left ischial/pe rineal area after an inferior gluteal thigh fasciocutaneous flap on 12/04/17. 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 That wound healed late this summer. She denies any fevers. Progress of Wound: Wound is healed. - Physical Exam Vital Signs Temp Pulse Resp BP 97.8 F 102 H 16 126/77 H 09/15/18 13:00 09/15/18 13:00 09/15/18 13:00 09/15/18 13:00 General: Alert, Oriented x3, Cooperative HEENT: Atraumatic Oral: Moist Mucosa Extremities: No edema Skin: Ulcer/ Wound - Left lower quadrant opened area is healed. Wound Measurements and Assessment WC - Nurse 1 - General Ulcer Measurement Start: 09/15/18 13:00 Freq: Status: Active Protocol: Activity Type Activity Date Activity User E-Sign Co-Sign Detail Recorded Client Recorded Date Recorded By Document 09/15/18 13:00 [id number] 09/15/18 13:02 09/15/18 13:00 Wound Center Nurse 1 [Ulcer Assessment] #3 LEFT LOWER ABDOMEN -Combined with other wound No -Current Size (cm) - Length 0.1 -Current Size (cm) - Width 0.1 -Current Size (cm) - Depth 0.1 -Total Square Cm 0.01 -Date of Last Picture (Recall this 09/15/18 field) -Photo Taken Yes -Epithelialization Large 67-100% WC - Nurse 2 - General Ulcer CM Notes Start: 09/15/18 13:00 Freq: Status: Active Protocol: Activity Type Activity Date Activity User E-Sign Co-Sign Detail Recorded Client Recorded Date Recorded By Document 09/15/18 13:12 [id number] 09/15/18 13:13 09/15/18 13:12 Pain Scale: 0-10 Numeric [Pain] -Is Patient Pain Free? Yes Debridement Note Post-Debridement Measurements/Treatment SOL - Nurse 2 - General Ulcer CM Notes Start: 09/15/18 13:00 Freq: Status: Active Protocol: Activity Type Activity Date Activity User E-Sign Co-Sign Detail Recorded Client Recorded Date Recorded By Document 09/15/18 13:12 [id number] 09/15/18 13:13 09/15/18 13:12 Pain Scale: 0-10 Numeric Is Patient Pain Free? Yes No debridement was completed today Assessment/Plan Active Problems (Last Updated 03/30/18 @ 11:16 by Cristian Flores) Skin ulcer of abdomen (Acute) DM2 (diabetes mellitus, type 2) (Chronic) Assessment: 1. Skin ulcer of left lower abdomen. 2. Diabetes mellitus, type 2. 3. History of a right BKA. 4. History of a compromised flap. Plan: Patient was seen and examined in the wound center today. Her LLQ abdominal ulcer is now healed. Wound cultures from 07/28/18 showed Staphylococcus aureus and Sthaphylococcus epidermidis. Her bacterial infection has resolved and she has completed her antibiotic. She is discharged today from the wound healing center. Code Visit Office Visits / Consults: [id number] OV L2 Est
== END 2018-10-08 23:59 ==
LOC: WC 12:59
PROVIDERS: Family Provider Internal Medicine; PCP Internal Medicine; Visit Provider Surgery
DX: Z09 Encounter for follow-up examination after completed treatment for conditions other than malignant neoplasm (principal); Z89.511 Acquired absence of right leg below knee; E11.9 Type 2 diabetes mellitus without complications
CPT/HCPCS: 99212; G0463

== ENCOUNTER 2018-10-07 09:54 | Outpatient (RCR) | payer MEDICAID, SELFPAY ==
[2018-09-21 10:30] VITALS: BMI 30.4
== END 2018-10-08 23:59 ==
LOC: DC 09:54
PROVIDERS: Family Provider Internal Medicine; PCP Internal Medicine; Referring Provider Internal Medicine; Visit Provider Internal Medicine
DX: E11.9 Type 2 diabetes mellitus without complications (principal); Z71.3 Dietary counseling and surveillance
CPT/HCPCS: G0108

== ENCOUNTER → 2018-10-13 10:55 | Outpatient (CLI) | payer MEDICAID, SELFPAY ==
[2018-09-21 10:30] VITALS: BMI 30.4
--- NOTE | 2018-10-13 11:00 | ART_ITS ---
Reason For Study: Left leg claudication Procedure A bilateral lower extremity continuous wave Doppler with analog waveform analysis,segmental pressures,and ankle brachial indexes without exercise. Left Segmental Pressures Left brachial= 109mmHg. Left posterior tibial artery = 126mmHg. Left dorsalis pedis artery = 126mmHg. The left dorsalis pedis waveforms are triphasic. The left posterior tibial artery waveforms are triphasic. Right Segmental Pressures Right brachial= 102mmHg. Right thigh = 151mmHg. The right thigh waveforms are triphasic. Indices The right ankle brachial index by popliteal artery of thigh is 1.39. The left ankle brachial index by the dorsalis pedis is 1.16. The left ankle brachial index by the posterior tibial artery is 1.16. Interpretation Summary The patient has a right above-knee amputation. Triphasic Doppler waveforms are noted at ankle level on the left. Pulse-volume waveform amplitudes appear satisfactory at all levels on the left. The resting left ankle-brachial index is normal. There is no evidence of significant left lower extremity arterial occlusive disease. Ordering Physician: Bambi Serrato Referring Physician: Sasha Rodriguez Performed By: Castro Johnson RVT and Student
== END ==
PROVIDERS: Family Provider Internal Medicine; PCP Internal Medicine; Referring Provider Podiatrist; Visit Provider Podiatrist
DX: I73.9 Peripheral vascular disease, unspecified (principal)
CPT/HCPCS: 93923

== ENCOUNTER 2018-10-14 09:58 | Outpatient (RCR) | payer MEDICAID, SELFPAY ==
[2018-09-21 10:30] VITALS: BMI 30.4
== END 2018-11-05 23:59 ==
LOC: DC 09:58
PROVIDERS: Family Provider Internal Medicine; PCP Internal Medicine; Referring Provider Internal Medicine; Visit Provider Internal Medicine
DX: E11.9 Type 2 diabetes mellitus without complications (principal); Z71.3 Dietary counseling and surveillance
CPT/HCPCS: 97802

== ENCOUNTER → 2018-11-16 10:21 | Outpatient (CLI) | payer MEDICAID, SELFPAY ==
[2018-11-16 09:51] VITALS: BMI 30.4
[2018-11-16 13:18] LABS: Hemoglobin A1c 10.9 % (4.2-6.3)
== END ==
PROVIDERS: Family Provider Internal Medicine; PCP Internal Medicine; Visit Provider Internal Medicine
DX: E11.9 Type 2 diabetes mellitus without complications (principal)
CPT/HCPCS: 36415; 83036

== ENCOUNTER → 2018-11-20 16:01 | Outpatient (CLI) | payer MEDICAID, SELFPAY ==
[2018-11-19 17:00] VITALS: BMI 30.4
--- NOTE | 2018-11-20 16:03 | RAD_ITS ---
STUDY: X-RAY - RIGHT TIBIA AND FIBULA REASON FOR EXAM: Female, 48 years old. Lump of stump TECHNIQUE: 2 view(s) of the tibia and fibula were obtained. COMPARISON: None. FINDINGS: There are status post amputation changes through the proximal shafts of the right tibia and fibula. There is minimal soft tissue swelling distal and anterior to the tibial stump. No radiopaque soft tissue foreign body or soft tissue gas is seen. RAD/Tibia & Fibula 2 Views IMPRESSION: Status post amputation changes through the proximal shafts of the right tibia and fibula. Minimal soft tissue swelling distal and anterior to the tibial stump. No radiopaque soft tissue foreign body or soft tissue gas is seen. Electronically Signed: Adrian Ramsey MD at 19:15 EDT , Service support ,
== END ==
PROVIDERS: Family Provider Internal Medicine; PCP Internal Medicine; Referring Provider Nurse Practitioner Family; Visit Provider Nurse Practitioner Family
DX: T87.89 Other complications of amputation stump (principal); M79.604 Pain in right leg
CPT/HCPCS: 73590

== ENCOUNTER 2018-11-26 08:00 | Outpatient (RCR) | payer MEDICAID, SELFPAY ==
[2018-10-19 09:42] VITALS: BMI 30.4
[2018-11-19 17:00] VITALS: BMI 30.4
--- NOTE | 2018-11-26 17:04 | HP.OTFCE.D ---
FCE D/C Summary - Discharge BERTRAM Erich GARY was seen for a one time visit for an FCE on 11/25/18 and is discharged.
--- NOTE | 2018-11-26 17:06 | HP.OTFCE_ITS ---
HP OT Functional Capacity Eval - Task Lift Floor (Occasional 1-33% of Day): 20 lbs Floor (Frequent 34-66% of Day): 15 lbs Floor (Constant 67-100% of Day): negligible Floor PDL: Light Knee (Occasional 1-33% of Day): 20 lbs Knee (Frequent 34-66% of Day): 15 lbs Knee (Constant 67-100% of Day): negligible Knee PDL: Light Waist (Occasional 1-33% of Day): 30 lbs Waist (Frequent 34-66% of Day): 20 lbs Waist (Constant 67-100% of Day): 8 lbs Waist PDL: Light Shoulder (Occasional 1-33% of Day): 20 lbs Shoulder (Frequent 34-66% of Day): 15 lbs Shoulder (Constant 67-100% of Day): negligible Shoulder PDL: Light Overhead (Occasional 1-33% of Day): 25 lbs Overhead (Frequent 34-66% of Day): 15 lbs Overhead (Constant 67-100% of Day): negligible Overhead PDL: Light - Work Activity/Posture Bending: Frequent Ability (34-66% of day) Squatting: Occasional Ability (1-33% of day) Kneeling: Occasional Ability (1-33% of day) Comments: SHOULD AVOID Reaching out: Frequent Ability (34-66% of day) Reaching up: Frequent Ability (34-66% of day) Sitting: Frequent Ability (34-66% of day) Walking: Occasional Ability (1-33% of day) Standing: Frequent Ability (34-66% of day) - Reference Duration Sedentary Sedentary Light Light Light Medium Medium Medium Heavy Very Heavy Heavy Occasional (0-33% of day) Frequent (34-66% of day) Constant (67-100% of day) 10 # Negligible Negligible 15 # 8 # Negligible 20 # 10# Negli. 35 # 18 # 7 # 50 # 25 # 10 # 75 # 100 # >100 # 38 # 50 # >50 # 15 # 20 # >20 # - Patient Information Height: 1.73 m Weight:: 223 kg Hand Dominance: R BP (Medication Use/Usual Values per pt report): No - Medical History Medical History Including Restrictions: No medical restrictions provided or given by doctor per patient report. - Diagnoses Diagnoses: Current referral: Jessica was referred for functional capacity evaluation due to blot clot leaving her a below knee amputee four years ago. She noted she was living in [place] at the time of getting her amputation. She has since had nerve related pain in right leg due to amputation. She further explained a year and half about at pressure sore of over left buttock requiring surgery. She further explained that she has the start of pressure sore area on stump of right lower extremity. She has follow-up plans with Dr. Guadarrama for MRI and then the potentially of surgical intervention if needed. Past Medical History (PMHx): Peripheral vascular disease, hyperlipemia, diabetes mellitus type II, benign essential hypertension, anxiety with depression, Raynaud disease, colostomy, neuropathy, past pressure ulcer L buttock, and below knee amputation on R LE. - Symptoms Symptoms: Jessica reports her pain symptoms are nerve related pain with shooting and burning sensations. She noted that she takes Lyrica (3x) and Cymbalta (2x) daily due to nerve related pain since having her below knee amputation. She also uses baclofen due to muscle spasms daily for muscle tension. - Pain Pain: Jessica noted that her main symptoms are pain. She noted that she has had nerve related pain since becoming amputee four years ago. She is currently on pain management program with Dr. Aquino at [facility] to manage pain and has been for the last year. Per patient report she will start getting injections within the next couple of weeks to see if injections also help pain. Day 1: Pain report at start with functional pain scale: 3/10. Pain at end of day one with functional pain scale: 4/10. Day 2: Pain report at start with functional pain scale: 6/10. Pain at end of day one with functional pain scale: 6/10. Saumya Pain Questionnaire is a self-report pain assessment to determine a patient?s accurate psychodynamics for accurate pain rating. A score of 30 or high indicates poor psychodynamics and the greater probability of decreased accuracy with accurate pain reporting. Day 1: Pre- Saumya: 36. Post Saumya: 19. Day 2: Pre- Saumya: 16. Post Saumya: 11. Discrepancies noted with pre and post testing indicating pain decreased although her verbal rating increased. Patient pain report is unreliable. The Lower Extremity Functional Scale. This scale measures a client?s perception of lower extremity dysfunction. A higher sc ore indicates decrease dysfunction. Pre- Score: 19/80. Post- Score: 33/80. Discrepancies noted between pre and post testing. Fear Avoidance Questionnaire (FAQ) is a client self-report assessment for 18-64+ that has shown to be reliable and valid for determining increased fear with movements. A score of 96 or higher indicates increased fear avoidance behaviors. Pre-test: FAQ total: 15/96. Fear-avoidance beliefs about physical activities: 15. Fear - avoidance beliefs about work Subscale: 0. Post-test: FAQ total: 46/96. Fear-avoidance beliefs about physical activities: 14. Fear - avoidance beliefs about work Subscale: 21. Discrepancies noted between pre and post testing. - Work History Work History: Jessica is not currently working and has not worked in the last four years. 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 She is currently working on getting her GED at [employer] and the [facility] [employer]. She noted that she also goes to [employer] daily to complete GED classes. She noted she passed social studies and is getting ready to take the science, language, and math exams in three months. - Behavioral Behavioral: Day one: Jessica appeared lethargic and tired with yawning throughout session. She appears to have increased difficulty following multiple step directions. Noted this has been so hard in regards to losing her leg. Day 2: Jessica noted she mixed up pills by accident and took sleeping pills yesterday. She noted she was in pain, but she was willing to complete all tasks as of her. - ADLS ADLS: She lives in downstairs apartments with daughter. She has five steps to get to landing with two more steps to get to porch for total seven stairs to enter home. She has first floor set up with basement. Laundry in located in basement she completes 12 steps to get to basement to complete laundry tasks. Vijay avalos noted daughter helps at times with laundry, but she is able to complete herself. Jessica further explained she completed all activities of daily living including but not limited to bathing, dressing, grooming, and donning and doffing prosthetic as appropriate. She continues to complete other self-care tasks which include laundry, driving, cooking, and cleaning as she is able throughout the day. - Physical Examination Physical Examination: The purpose of this functional capacity evaluation (FCE) was to determine Jessica?s physical ability. 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 Aerobic limiting factor: 85% of max adjust HR= (220-46)*.85= 148 bpm. Calculated max weight: 60% of weight= 133.8 lbs. For both days she was educated to take Lyrica and Cymbalta only as these medications have been daily required medication since amputation and to bring but attempt not to take additional narcotics to get true depiction of physical ability. She reported no pain medications besides Cymbalta and Lyrica for both day one and two of the evaluations. Day One Starting: Blood Pressure: 123/79 bpm. 02 97%. Heart rate: 88 bpm. Noted upon arriving on day 2 that some of the drowsiness on day one was due to the fact she accidently took sleeping related pills instead of regular pills. Noted she couldn?t figure out why she was so tired until she got home and realized the mistake. Day two starting: Blood Pressure: 132/86 bpm. 02 97%. Heart rate: 113 bpm ROM: Completed lower extremity range of motion is as follows: Knee. - R 0-85 with prothestic on, L 0-134. Hip. - R 24-0-106. - L 30-0-108 Strength: Manual muscle testing completed of the following to determine patient strength needed to complete job ? related tasks: Upper extremity: Shoulder: - Shoulder flexion: R 5/5 , L 5/5. oDynamometer: R 11.7 , L 13.2. -Shoulder extension: R 4+/5 , L 4+/5. oDynamometer: R 10.2, L 9.8 lbs. -Shoulder Adduction: R 5/5 , L 5/5. oDynamometer: R 12.3 , L 11.1 lbs. -Shoulder Abduction: R 4+/5 , L 4+/5. oDynamometer: R 16.1 , L 18.2. Elbow: -Elbow Flexion: R 4/5, L 4/5. - dynamometer: R 14.6, L 14.1 lbs. -Elbow Extension: R 4/5, L 4/5. - dynamometer: R 12.5 , L 13.0. Lower Extremity: Lower Body: Hip flexion: R 4+/5, L. oDynamometer: R 12.8, L 14.0. Hip abduction: R , L. oDynamometer: R 13.2, L 12.3 lbs. Hip Adduction: R 10.7 , L 13.0. Knee extension: R 13.3 , L 18.0. Knee flexion: R 19.5, L 13.8 Right Landscape And Yardwork Laborer Strength Average: 46.00 Left Landscape And Yardwork Laborer Strength Average: 29.00 Right Lateral Pinch Average: 16.33 Left Lateral Pinch Average: 11.00 Right Tripod Pinch Average: 10.00 Left Tripod Pinch Average: 11.33 Comments: 5 span Landscape And Yardwork Laborer Testing: Position 1: R 31, L 21. Position 2: R 40 ,L 25. Position 3: R 41 , L 30. Position 4: R 40 , L 32. Position 5: R 35 , L 22. Rapid Landscape And Yardwork Laborer Exchange Testing: Right Average: 40. Left Average: 25. A coefficient of variation greater than 15 % indicated decreased consistency of effort. Coefficient of variation: Consistency of Effort: Sensation: Sensory Testing: Sensation testing completed on right foot with monofilament touch test. A score of normal on touch test is 2.83 and within normal range with just some discrepancies for light touch is between 3.22-3.61. The higher the number in more complications related to patient?s ability to perceive touch related sensory stimuli. L foot: Great Toe 5.46 , 2nd 5.46 , 3rd 5.46 , 4th 5.46 , 5th 4.74. Started to be able to percieved perception when at 4.31 but unable to accurately distinguish input was to what toe. Fine Motor: Fine motor: Completed the Purdue Pegboard test to further determine the patient?s ability to complete 20-3 step tasks, assess fine motor control and general dexterity needed to complete assembly like work. The results are as fo llows: Right Hand: 11. -Percentile: Left Hand: 8. -Percentile. Both Hands: 7. -Percentile. R+ L+ Both: 26. -percentile: Assembly: 3. * increased difficulty following 4 step direction to complete assemly task and completed correctly with right and left hands for designated pieces. -percentile: Balance: Functional reach test is used to determine static balance in patients. A score of 15 is normal and less than 10 increases risk of falling. A score of 6 or less significantly increases a patient?s risk of falling. Exeter 1: 9 inches. Exeter 2: 12 inches. Exeter 3: 13.5 inches. Average: 11.5. Blood Pressure: 116/81. Heart rate with use of pulse oximeter: 93 bpm. Functional Gait Assessment (FGA) is a dynamic balance test to determine vestibular functioning and general dynamic balance ability of patient 18-65+. This assessment can be used with clients of various backgrounds to determine functional dynamic balance needed to complete every day work related tasks. 1.Gait Level Surface:1. 2.Change in Gait Speed: 2. 3.Gait with horizontal head turns:1. 4.Gait with vertical head turns:1. 5.Gait and pivot turn:2. 6.Step over obstacle:1. 7.Gait with narrow base of support: 0. 8.Gait with eyes closed: 1. 9.Ambulating Backwards: 1. 10.Steps: 1. Total Score: 11/maximum score 30. More than three standard deviations below age related peers. This indicates increased dyanmic balance impairments. She exhibits increased hesitation and fear - like behaviors when reling on right lower extremity and prosthetic. She is able to complete mobility tasks and completed all related balance testing without use of straight cane and use of gait belt only as precautionary method. - Non Material Handling Activities Bending: Heart rate prior to task with use of pulse oximeter: 103. 3x, 10x in 42 seconds, 10x faster in 50 seconds. Completed full bend with assymmetric weightbearing observed in lower extremtiy trunk lateral leaning to left side. She consisently compleetd compensation of L. Heart rate pottest with use of pulse oximeter: 106 Squatting: Heart rate prior to task with use of pulse oximeter: 104 bpm. 3x, 10x in 42 seconds, 10x faster in 52 seconds. Completed with 25 % of full squat. Heart rate pottest with use of pulse oximeter: 114 bpm. Pain rated by patient at 4/10. Kneeling: Heart rate prior to task with use of pulse oximeter: 95 bpm. Attempted with extremly poor body mechanics. Need for extenal support and use of 2x therapist stand by assistance for safety. Completed 50% of full kneel. Heart rate pottest with use of pulse oximeter: 100 bpm Reaching out/up: Heart rate prior to task with use of pulse oximeter: 93 bpm. Reaching out from standing position: 3x, 10x in 12 seconds, 10 faster in 9 seconds. Reaching up from standing position: 3x, 10x in 15 seconds, and 10x faster in 12 seconds. Heart rate pottest with use of pulse oximeter: 112 bpm. No increase in pain in lower extremity. Pain 3/10 pain. Walking: Blood Pressure: 132/86 mmHg. Heart rate prior to start: 113 bpm. Able to complete 17 minutes of walking with and without use of cane. Completed first 6 minutes with no cane and after increase in antalgic gait used cane to regulate gait. Pain at 6/10. Posttest heart rate with use of pulse oximeter: 110 bpm Standing: Able to stand for 38 mins during static and minimally dynamic tasks. Gait belt used as precautionary but no cane. Some compensations observed with mild antalgic gait to right lower extremity and left lateral leaning of trunk. Sitting: Able to completed sitting for 30-40 minutes on mat table and supportive chair. Climbing Stairs: Able to climb 10 stairs with use if 1x handrail and one step patterns. She exhibits some slight antalgic gait. - Dynamic Occasional Lifting Capacity Floor Lift: Heart rate prior to task with use of pulse oximeter: 97 bpm. Max weight: 1x25 lbs. Occassional weight: 1x20 lbs: Frequent: 5x15 lbs. Pain rated by Patient at 6/10. Heart rate pottest with use of pulse oximeter: 123 bpm Knee Lift: Heart rate prior to task with use of pulse oximeter: 112 bpm. Max weight: 1x30 lbs. Occassional weight: 1x20 lbs: Frequent: 5x15 lbs. Pain rated by Patient at 6/10. Heart rate pottest with use of pulse oximeter: 125 bpm Waist Lift: Seated break for 2 minutes prior to continuing. Heart rate prior to task with use of pulse oximeter: 73 bpm. Max weight: 1x35 lbs. Occassional weight: 1x30 lbs: Frequent: 5x20 lbs. Pain rated by Patient at 6/10. Heart rate pottest with use of pulse oximeter: 87 bpm Shoulder Lift: Standing break for 2 minutes prior to continuing. Heart rate prior to task with use of pulse oximeter: 104 bpm. Max weight: 1x25 lbs. Occassional weight: 1x20 lbs: Frequent: 5x15 lbs. Pain rated by Patient at 6/10. Heart rate pottest with use of pulse oximeter: 128 bpm Overhead Lift: Standing break for 2 minutes prior to continuing. Heart rate prior to task with use of pulse oximeter: 101 bpm. Max weight: 1x 30 lbs. Occassional weight: 1x 25lbs: Frequent: 5x 15lbs. Pain rated by Patient at 6/10. Heart rate pottest with use of pulse oximeter: 106 bpm Carrying: . 15 lbs. Heart rate pottest with use of pulse oximeter: 107 bpm. Pain rated by Patient at 6/10. Comments: Ending diagnostics: Blood pressure: 113/78 mmHg. Heart rate 91 bpm
--- NOTE | 2018-12-04 12:57 | HP.OTFCE_ITS ---
HP OT Functional Capacity Eval - Task Lift Floor (Occasional 1-33% of Day): 20 lbs Floor (Frequent 34-66% of Day): 15 lbs Floor (Constant 67-100% of Day): negligible Floor PDL: Light Knee (Occasional 1-33% of Day): 20 lbs Knee (Frequent 34-66% of Day): 15 lbs Knee (Constant 67-100% of Day): negligible Knee PDL: Light Waist (Occasional 1-33% of Day): 30 lbs Waist (Frequent 34-66% of Day): 20 lbs Waist (Constant 67-100% of Day): 8 lbs Waist PDL: Light Shoulder (Occasional 1-33% of Day): 20 lbs Shoulder (Frequent 34-66% of Day): 15 lbs Shoulder (Constant 67-100% of Day): negligible Shoulder PDL: Light Overhead (Occasional 1-33% of Day): 25 lbs Overhead (Frequent 34-66% of Day): 15 lbs Overhead (Constant 67-100% of Day): negligible Overhead PDL: Light - Work Activity/Posture Bending: Frequent Ability (34-66% of day) Squatting: Occasional Ability (1-33% of day) Kneeling: Occasional Ability (1-33% of day) Comments: SHOULD AVOID Reaching out: Frequent Ability (34-66% of day) Reaching up: Frequent Ability (34-66% of day) Sitting: Frequent Ability (34-66% of day) Walking: Occasional Ability (1-33% of day) Standing: Frequent Ability (34-66% of day) - Reference Duration Sedentary Sedentary Light Light Light Medium Medium Medium Heavy Very Heavy Heavy Occasional (0-33% of day) Frequent (34-66% of day) Constant (67-100% of day) 10 # Negligible Negligible 15 # 8 # Negligible 20 # 10# Negli. 35 # 18 # 7 # 50 # 25 # 10 # 75 # 100 # >100 # 38 # 50 # >50 # 15 # 20 # >20 # - Patient Information Height: 1.73 m Weight:: 223 kg Hand Dominance: R BP (Medication Use/Usual Values per pt report): No - Medical History Medical History Including Restrictions: No medical restrictions provided or given by doctor per patient report. - Diagnoses Diagnoses: Current referral: Jessica was referred for functional capacity evaluation due to blot clot leaving her a below knee amputee four years ago. She noted she was living in [place] at the time of getting her amputation. She has since had nerve related pain in right leg due to amputation. She further explained a year and half about at pressure sore of over left buttock requiring surgery. She further explained that she has the start of pressure sore area on stump of right lower extremity. She has follow-up plans with Dr. Guadarrama for MRI and then the potentially of surgical intervention if needed. Past Medical History (PMHx): Peripheral vascular disease, hyperlipemia, diabetes mellitus type II, benign essential hypertension, anxiety with depression, Raynaud disease, colostomy, neuropathy, past pressure ulcer L buttock, and below knee amputation on R LE. - Symptoms Symptoms: Jessica reports her pain symptoms are nerve related pain with shooting and burning sensations. She noted that she takes Lyrica (3x) and Cymbalta (2x) daily due to nerve related pain since having her below knee amputation. She also uses baclofen due to muscle spasms daily for muscle tension. - Pain Pain: Jessica noted that her main symptoms are pain. She noted that she has had nerve related pain since becoming amputee four years ago. She is currently on pain management program with Dr. Aquino at [facility] to manage pain and has been for the last year. Per patient report she will start getting injections within the next couple of weeks to see if injections also help pain. Day 1: Pain report at start with functional pain scale: 3/10. Pain at end of day one with functional pain scale: 4/10. Day 2: Pain report at start with functional pain scale: 6/10. Pain at end of day one with functional pain scale: 6/10. Saumya Pain Questionnaire is a self-report pain assessment to determine a patient?s accurate psychodynamics for accurate pain rating. A score of 30 or high indicates poor psychodynamics and the greater probability of decreased accuracy with accurate pain reporting. Day 1: Pre- Saumya: 36. Post Saumya: 19. Day 2: Pre- Saumya: 16. Post Saumya: 11. Discrepancies noted with pre and post testing indicating pain decreased although her verbal rating increased. Patient pain report is unreliable. The Lower Extremity Functional Scale. This scale measures a client?s perception of lower extremity dysfunction. A higher sc ore indicates decrease dysfunction. Pre- Score: 19/80. Post- Score: 33/80. Discrepancies noted between pre and post testing. Fear Avoidance Questionnaire (FAQ) is a client self-report assessment for 18-64+ that has shown to be reliable and valid for determining increased fear with movements. A score of 96 or higher indicates increased fear avoidance behaviors. Pre-test: FAQ total: 15/96. Fear-avoidance beliefs about physical activities: 15. Fear - avoidance beliefs about work Subscale: 0. Post-test: FAQ total: 46/96. Fear-avoidance beliefs about physical activities: 14. Fear - avoidance beliefs about work Subscale: 21. Discrepancies noted between pre and post testing. - Work History Work History: Jessica is not currently working and has not worked in the last four years. 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 She is currently working on getting her GED through [employer] at the [facility] [email or web address]. She noted that she also goes to [employer] daily to complete GED classes. She noted she passed social studies and is getting ready to take the science, language, and math exams in three months. - Behavioral Behavioral: Day one: Jessica appeared lethargic and tired with yawning throughout session. She appears to have increased difficulty following multiple step directions. Noted this has been so hard in regards to losing her leg. Day 2: Jessica noted she mixed up pills by accident and took sleeping pills yesterday. She noted she was in pain, but she was willing to complete all tasks as of her. - ADLS ADLS: She lives in downstairs apartments with daughter. She has five steps to get to landing with two more steps to get to porch for total seven stairs to enter home. She has first floor set up with basement. Laundry in located in basement she completes 12 steps to get to basement to complete laundry tasks. She noted daughter helps at times with laundry, but she is able to complete herself. Jessica further explained she completed all activities of daily living including but not limited to bathing, dressing, grooming, and donning and doffing prosthetic as appropriate. She continues to complete other self-care tasks which include laundry, driving, cooking, and cleaning as she is able throughout the day. - Physical Examination Physical Examination: The purpose of this functional capacity evaluation (FCE) was to determine Jessica?s physical ability. 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 Aerobic limiting factor: 85% of max adjust HR= (220-46)*.85= 148 bpm. Calculated max weight: 60% of weight= 133.8 lbs. For both days she was educated to take Lyrica and Cymbalta only as these medications have been daily required medication since amputation and to bring but attempt not to take additional narcotics to get true depiction of physical ability. She reported no pain medications besides Cymbalta and Lyrica for both day one and two of the evaluations. Day One Starting: Blood Pressure: 123/79 bpm. 02 97%. Heart rate: 88 bpm. Noted upon arriving on day 2 that some of the drowsiness on day one was due to the fact she accidently took sleeping related pills instead of regular pills. Noted she couldn?t figure out ?why she was so tired until she got home and realized the mistake?. Day two starting: Blood Pressure: 132/86 bpm. 02 97%. Heart rate: 113 bpm ROM: Completed lower extremity range of motion is as follows: Knee. - R 0-85 with prothestic on, L 0-134. Hip. - R 24-0-106. - L 30-0-108 Strength: Manual muscle testing completed of the following to determine patient strength needed to complete job ? related tasks: Upper extremity: Shoulder: - Shoulder flexion: R 5/5 , L 5/5. oDynamometer: R 11.7 , L 13.2. -Shoulder extension: R 4+/5 , L 4+/5. oDynamometer: R 10.2, L 9.8 lbs. -Shoulder Adduction: R 5/5 , L 5/5. oDynamometer: R 12.3 , L 11.1 lbs. -Shoulder Abduction: R 4+/5 , L 4+/5. oDynamometer: R 16.1 , L 18.2. Elbow: -Elbow Flexion: R 4/5, L 4/5. - dynamometer: R 14.6, L 14.1 lbs. -Elbow Extension: R 4/5, L 4/5. - dynamometer: R 12.5 , L 13.0. Lower Extremity: Lower Body: Hip flexion: R 4+/5, L. oDynamometer: R 12.8, L 14.0. Hip abduction: R , L. oDynamometer: R 13.2, L 12.3 lbs. Hip Adduction: R 10.7 , L 13.0. Knee extension: R 13.3 , L 18.0. Knee flexion: R 19.5, L 13.8 Right Head Char Filter Tank Tender Strength Average: 46.00 Right Head Char Filter Tank Tender Strength Percentile: 71 Left Head Char Filter Tank Tender Strength Average: 29.00 Left Head Char Filter Tank Tender Strength Percentile: 56 Right Lateral Pinch Average: 16.33 Right Lateral Pinch Percentile: 90 Left Lateral Pinch Average: 11.00 Left Lateral Pinch Percentile: 50 Right Tripod Pinch Average: 10.00 Right Tripod Pinch Percentile: 25 Left Tripod Pinch Average: 11.33 Left Tripod Pinch Percentile: 50 Comments: 5 span Head Char Filter Tank Tender Testing: Position 1: R 31, L 21. Position 2: R 40 ,L 25. Position 3: R 41 , L 30. Position 4: R 40 , L 32. Position 5: R 35 , L 22. A coefficient of variation greater than 15 % indicated decreased consistency of effort. Coefficient of variation: R 14%, L 18%. Consistency of Effort: Inconsisent effort on left hand based on distribution of data. Rapid Head Char Filter Tank Tender Exchange Testing: Right Average: 40. Left Average: 25 Sensation: Sensory Testing: Sensation testing completed on right foot with monofilament touch test. A score of normal on touch test is 2.83 and within normal range with just some discrepancies for light touch is between 3.22-3.61. The higher the number in more complications related to patient?s ability to perceive touch related sensory stimuli. L foot: Great Toe 5.46 , 2nd 5.46 , 3rd 5.46 , 4th 5.46 , 5th 4.74. Started to be able to perceive stimuli at 4.31 but unable to accurately distinguish input to correct toe. Sensory related deficits noted in left lower extremity. Fine Motor: Fine motor: Completed the [place] Pegboard test to further determine the patient?s ability to complete 20-3 step tasks, assess fine motor control and general dexterity needed to complete assembly like work. The results are as follows: Right Hand: 11. -Percentile: 1. Left Hand: 8. -Percentile: below 1. Both Hands: 7. -Percentile below 1. R+ L+ Both: 26. -percentile: below 1. Assembly: 3. * increased difficulty following 4 step direction to complete assembly task and completed correctly with right and left hands for designated pieces. -percentile: below 1 Balance: Functional reach test is used to determine static balance in patients. A score of 15 is normal and less than 10 increases risk of falling. A score of 6 or less significantly increases a patient?s risk of falling. [place] 1: 9 inches. [place] 2: 12 inches. [place] 3: 13.5 inches. Average: 11.5. Blood Pressure: 116/81. Heart rate with use of pulse oximeter: 93 bpm. Functional Gait Assessment (FGA) is a dynamic balance test to determine vestibular functioning and general dynamic balance ability of patient 18-65+. This assessment can be used with clients of various backgrounds to determine functional dynamic balance needed to complete every day work related tasks. 1.Gait Level Surface:1. 2.Change in Gait Speed: 2. 3.Gait with horizontal head turns:1. 4.Gait with vertical head turns:1. 5.Gait and pivot turn:2. 6.Step over obstacle:1. 7.Gait with narrow base of support: 0. 8.Gait with eyes closed: 1. 9.Ambulating Backwards: 1. 10.Steps: 1. Total Score: 11/maximum score 30. More than three standard deviations below age related peers. This indicates increased dynamic balance impairments. She exhibits increased hesitation and fear - like behaviors when relying on right lower extremity and prosthetic. She is able to complete mobility tasks and completed all related balance testing without use of straight cane and use of gait belt only as precautionary method. - Non Material Handling Activities Bending: Heart rate prior to task with use of pulse oximeter: 103. 3x, 10x in 4 2 seconds, 10x faster in 50 seconds. Completed full bend with asymmetric weightbearing observed in lower extremity with increase in lateral leaning of trunk to left side. Decreased spinal alignment and mechanical deficits noted. She consistently completed compensations to left side. Heart rate posttest with use of pulse oximeter: 106 Squatting: Heart rate prior to task with use of pulse oximeter: 104 bpm. 3x, 10x in 42 seconds, 10x faster in 52 seconds. Completed with 25 % of full squat. Equal weightbearing noted throughout bilateral lower extremities. Increased fl exion of trunk noted as well as compensations to promote completion of task. Heart rate posttest with use of pulse oximeter: 114 bpm. Pain rated by patient at 4/10. Kneeling: Heart rate prior to task with use of pulse oximeter: 95 bpm. Attempted with extremely poor body mechanics. Need for external support and use of 2x therapist stand by assistance for safety. Completed 50% of full kneel. Would not recommended based on safety concerns. Heart rate posttest with use of pulse oximeter: 100 bpm Reaching out/up: Heart rate prior to task with use of pulse oximeter: 93 bpm. Reaching out from standing position: 3x, 10x in 12 seconds, 10 faster in 9 seconds. Reaching up from standing position: 3x, 10x in 15 seconds, and 10x faster in 12 seconds. Completed both forward and overhead reaching with equal weightbearing into bilateral lower extremity. No mecyhnical deficits noted. Decreased spinal alignment but this was patient normal posture as observed throughout session. Heart rate pottest with use of pulse oximeter: 112 bpm. No increase in pain in lower extremity. Pain 3/10 pain. Walking: Blood Pressure: 132/86 mmHg. Heart rate prior to start: 113 bpm. Able to complete 17 minutes of walking with and without use of cane. Completed first 6 minutes with no cane and after increase in antalgic gait used cane to help regulate gait but antalgic gait noted to right lower extremity. Able to complete five laps of 340 feet for a total 1700 feet around facility. Need for three short less than one minute standing breaks during walking tasks. Pain at 6/10. Posttest heart rate with use of pulse oximeter: 110 bpm Standing: Able to stand for 38 mins during static and minimally dynamic tasks. Gait belt used as precautionary but no cane. Some compensations observed with mild antalgic gait to right lower extremity and left lateral leaning of trunk. Sitting: Able to completed sitting for 30-40 minutes on mat table and supportive chair. Climbing Stairs: Able to climb 10 stairs with use if 1x handrail and one step patterns. She exhibits some slight antalgic gait. - Dynamic Occasional Lifting Capacity Floor Lift: Heart rate prior to task with use of pulse oximeter: 97 bpm. Max weight: 1x25 lbs. Occasional weight: 1x20 lbs: Frequent: 5x15 lbs. Completed with poor body mechanics. Increased thoracic spine flexion with heavier load and slight compensation of left lateral leaning observed. Would not recommend completing maximum weight consistently due to increased mechanical changes and compensations. Pain rated by Patient at 6/10. Heart rate posttest with use of pulse oximeter: 123 bpm Knee Lift: Heart rate prior to task with use of pulse oximeter: 112 bpm. Max weight: 1x30 lbs. Occasional weight: 1x20 lbs: Frequent: 5x15 lbs. Equal weightbearing observed to bilateral lower extremity and fair body mechanics observed. Increase in heart rate observed with completion of task. Pain consistent and increase in heart rate likely due to exertion. Pain rated by Patient at 6/10. Heart rate posttest with use of pulse oximeter: 125 bpm Waist Lift: Seated break for 2 minutes prior to continuing. Heart rate prior to task with use of pulse oximeter: 73 bpm. Max weight: 1x35 lbs. Occasional weight: 1x30 lbs: Frequent: 5x20 lbs. Completed with fair body mechanics of equal weightbearing of increased distribution of load to left upper extremity. Increase in rate from exertion and pain remain the same. Pain rated by Patient at 6/10. Heart rate posttest with use of pulse oximeter: 87 bpm Shoulder Lift: Standing break for 2 minutes prior to continuing. Heart rate prior to task with use of pulse oximeter: 104 bpm. Max weight: 1x25 lbs. Occasional weight: 1x20 lbs: Frequent: 5x15 lbs. Completed with fair body mechanics. Completed with equal weightbearing through lower extremity. Pain remained consistent. Increase in pain believed to be due to exertion. Pain rated by Patient at 6/10. Heart rate posttest with use of pulse oximeter: 128 bpm Overhead Lift: Standing break for 2 minutes prior to continuing. Heart rate prior to task with use of pulse oximeter: 101 bpm. Max weight: 1x 30 lbs. Occasional weight: 1x 25lbs: Frequent: 5x 15lbs. Completed with fair body mechanics. Completed increased spinal compensations of thoracic extension and cervical flexion. Completed with equal weightbearing through lower extremity. Pain remained consistent. Increase in pain believed to be due to exertion. Pain rated by Patient at 6/10. Heart rate posttest with use of pulse oximeter: 106 bpm [place] lbs. Completed with fair body mechanics. Observed with unequal weightbearing through lower extremity and increased load placement to left lower extremity. Compensations noted during tasks. Pain remained consistent. Increase in pain believed to be due to exertion. Heart rate posttest with use of pulse oximeter: 107 bpm. Pain rated by Patient at 02/15. Comments: Ending diagnostics: Blood pressure: 113/78 mmHg. Heart rate: 91 bpm
== END 2018-11-26 19:00 | disposition home or self-care (01) ==
LOC: OT 08:00
PROVIDERS: Family Provider Internal Medicine; PCP Internal Medicine; Referring Provider Nurse Practitioner Family; Visit Provider Nurse Practitioner Family
DX: L89.324 Pressure ulcer of left buttock, stage 4 (principal); Z89.511 Acquired absence of right leg below knee
CPT/HCPCS: 97750

== ENCOUNTER → 2018-12-01 13:15 | Outpatient (CLI) | payer MEDICAID, SELFPAY ==
[2018-11-19 17:00] VITALS: BMI 30.4
--- NOTE | 2018-12-01 13:17 | MRI_ITS ---
STUDY: MRI LEFT KNEE WITH AND WITHOUT CONTRAST REASON FOR EXAM: 48-year-old female. Right below-knee amputation. Pain at the surgical stump. TECHNIQUE: Standardized fat and water weighted pulse sequences were obtained in all 3 orthogonal planes. Post contrast images were obtained following the IV administration of 20 mL Dotarem. COMPARISON: CT scan dated January 19, 2018. FINDINGS: Below-knee amputation without acute osteomyelitis, fracture or dislocation. No reactive bone contusion or edema. Faint rim-enhancing fluid collection at the lateral subcutaneous tissues adjacent to the surgical resection site measuring 2.2 cm x 0.6 cm 1.4 cm (coronal image 11 series 7, axial image 25 series 4 and sagittal image 9 series 10). Mild adjacent soft tissue swelling near the fluid collection. No deep fascial collections identified. Grade 2 cartilage loss at the lateral compartment with small osteophyte. Grade 2 cartilage loss at the medial compartment. Normal patellofemoral articular cartilage. Mild muscular atrophy about the lower extremity predominating at the anterior compartment (axial image 17 series 3). No joint effusion. Tiny popliteal cyst. Normal medial and lateral patellofemoral retinaculum. Anterior cruciate ligament intact. Posterior cruciate ligament intact. Medial meniscus intact. Lateral meniscus intact. Patellar tendon intact. MRI/Lower Ext No Joint W/WO Cont IMPRESSION: Small rim-enhancing abscess at the anterior lateral subcutaneous tissues Below-knee amputation without acute osteomyelitis Mild medial and lateral compartment cartilage loss Tiny popliteal cyst Muscle atrophy Electronically Signed: Fahad Crabtree DO at 14:07 EDT Tel , Service support ,
== END ==
PROVIDERS: Family Provider Internal Medicine; PCP Internal Medicine; Referring Provider Surgery; Visit Provider Surgery
DX: T87.89 Other complications of amputation stump (principal); M79.604 Pain in right leg; E11.9 Type 2 diabetes mellitus without complications; I73.9 Peripheral vascular disease, unspecified; F17.200 Nicotine dependence, unspecified, uncomplicated
CPT/HCPCS: 73720; A9575

== ENCOUNTER 2018-12-04 10:00 | Outpatient (RCR) | payer MEDICAID, SELFPAY ==
[2018-10-19 09:42] VITALS: BMI 30.4
== END 2018-12-04 23:59 | disposition home or self-care (01) ==
LOC: DC 10:00
PROVIDERS: Family Provider Internal Medicine; PCP Internal Medicine; Referring Provider Internal Medicine; Visit Provider Internal Medicine
DX: E11.9 Type 2 diabetes mellitus without complications (principal); Z71.3 Dietary counseling and surveillance
CPT/HCPCS: 97803

== ENCOUNTER → 2018-12-11 15:40 | Outpatient (CLI) | payer MEDICAID, SELFPAY ==
[2018-11-19 17:00] VITALS: BMI 30.4
--- NOTE | 2018-12-11 15:51 | RAD_ITS ---
STUDY: X-RAY - LUMBAR SPINE REASON FOR EXAM: Female, 48 years old. Low back pain. TECHNIQUE: 5 view(s) of the lumbar spine were obtained. COMPARISON: None FINDINGS: Normal lumbar lordosis. There is no substantial scoliosis. There is a normal alignment of the vertebrae. There is endplate spondylosis at the level of L5-S1. The vertebral heights are within normal limits. There is severe disc space narrowing at L5-S1 with vacuum disc. There is no demonstrated fracture. There is no demonstrated spondylolysis of the pars interarticulares. There are stents in the common iliac arteries bilaterally. RAD/L/S Spine Min 4 Views IMPRESSION: Degenerative changes at the level of L5-S1. Bilateral stents in the region of the common iliac arteries. Electronically Signed: Yan Sandoval MD at 15:52 EDT Tel , Service support ,
== END ==
PROVIDERS: Family Provider Internal Medicine; PCP Internal Medicine; Referring Provider Nurse Practitioner Family; Visit Provider Nurse Practitioner Family
DX: M51.37 Other intervertebral disc degeneration, lumbosacral region (principal); G89.29 Other chronic pain
CPT/HCPCS: 72110

== ENCOUNTER 2018-12-28 13:13 | Inpatient (IN) | payer MEDICAID, SELFPAY ==
[2018-11-19 17:00] VITALS: BMI 30.4
--- NOTE | 2018-12-27 22:34 | HP.PCM_ITS ---
History and Physical Date of Admission: 12/28/18 HISTORY OF PRESENT ILLNESS 48 year old woman presents with pain in her right BKA stump that has worsened over the last several months. She states she underwent the right BKA about 4 years ago. About 6 months postop she needed additional surgery with removal of scar tissue. She is also in the process of getting her prosthesis revised as well. She denies any fever. She denies any recent trauma. She denies any recent infection. She denies any drainage. She presents today for further evaluation and treatment. As a side note, patient had a necrotizing infection in [place] last year and needed a diverting colostomy. Her wounds have healed, and she is interested in a colostomy reversal. She had an xray done on 11/20/18 which showed no foreign body and no fracture seen. An MRI was done on 12/01/18 which showed no acute osteomyelitis. A fluid baylee ection was seen anteriorly with a questionable abscess with clinical correlation. Some muscle atrophy also seen. PAST MEDICAL HISTORY Anxiety Diabetes Neuropathy Raynaud disease Vascular disease PAST SURGICAL HISTORY Amputation of right lower extremity cholecystectomy ALLERGIES fentanyl morphine MEDICATIONS Aspirin [Aspirin, Baby] Atorvastatin Calcium [Lipitor] Baclofen Ranitidine [Zantac] Clopidogrel Bisulfate [Plavix] Duloxetine Hcl [Cymbalta] pantoprazole insulin aspart U- 100 ibuprofen pregabalin clonidine HCl hydrocodone loratadine dulaglutide buspirone insulin detemir (U-100) FAMILY HISTORY Father , 2014 Cancer Mother Hypertension Fibromyalgia Thyroid disorder Brother , 2008 Diabetes Grandmother , maternal Myocardial infarction Grandfather , Maternal Cancer SOCIAL HISTORY Smoking Status: Current every day smoker how long ago did patient quit smokin alcohol intake: never substance use type: does not use REVIEW OF SYSTEMS General - Denies fever, fatigue, and weight loss. Eyes - Denies glaucoma. Has cataracts. ENT - Denies nasal congestion and sore throat. Endocrine - Denies excessive thirst and urination. Has heat and cold intolerance. Has diabetes mellitus. Skin - Denies suspicious lesions and skin cancer. Musculoskeletal - Denies joint pain, joint stiffness, weakness of muscles and joints and arthritis. Has back pain. Has a painful right BKA stump. Neuro - Denies headaches. Cardiovascular - Denies chest pain, fatigue, and shortness of breath with exertion. Psych - Denies anxiety. Has depression. Respiratory - Denies chronic cough and shortness of breath. Patient is a smoker. Gastrointestinal - Denies nausea, vomiting, diarrhea, and constipation. Hematologic - Denies abnormal bruising and bleeding. Genitourinary - Denies hematuria and urinary frequency. PHYSICAL EXAMINATION General - Alert and Oriented HEENT - PERRL. EOMI. Throat is clear. Neck - Supple and nontender. No cervical adenopathy. Lungs - Clear to auscultation. Heart - Regular rate and rhythm. Abdomen - Soft and nondistended. Functioning colostomy. Extremities - FROM upper extremities and left lower extremity. Has a right BKA stump. Tenderness inferiorly over the tibia. Tenderness anteriorly with some pressure scarring over the bone. Distance from the tibial tubercle to the stump is 12 cm. No cellulitis, fluctuance, or purulent drainage. No inguinal adenopathy. Femoral pulses are palpable. No axillary adenopathy. Radial pulses are palpable. Neuro - CN II-XII grossly intact. Psych - Normal mood and affect. ASSESSMENT 1. Painful right BKA stump. 2. Fluid collection anterior aspect of stump. 3. Diabetes mellitus. 4. PVD. 5. Smoker. 6. History of necrotizing infection. 7. History of diverting colostomy. PLAN Patient is developing pressure tissue over the stump anteriorly with some pain. There is also some pain inferiorly on the stump over the tibial bone. An xray was done on 11/20/18 which showed no foreign body and no fracture seen. An MRI was done on 12/01/18 which showed no acute osteomyelitis. A fluid collection was seen anteriorly with a questionable abscess with clinical correlation. Some muscle atrophy also seen. It is difficult to use her prosthesis secondary to the pain. The prosthesis is in the process of being revised. I recommend opening up the stump incision and debrided any abnormal scar tissue. Also will proceed with a partial ostectomy to rule out osteomyelitis. I will be conservative with bone removal. Will also shave the tibial end to smooth it out which should help to decrease pain when the prosthesis is pressed against it. Also will check to see if the posterior muscles can be dissected and advanced over the bone to provide additional padding. Will also dissect over the anterior bone to see where the pressure scarring is located to make sure no pressure damaged tissue is present. I suspect there may be a small bony prominence in the area which is aggravating the pressure scarring. If so, will shave the bony prominence to help decrease any further pr essure. She states her last HgbA1c was on 11/16/18 which was 10.9. So the initial procedure will be drainage of the fluid collection and debridement and a partial ostectomy. Soft tissue and bone that is removed will be sent to Pathology for analysis to rule out carcinoma and to evaluate for osteomyelitis and to Microbiology for culture. A positive culture will necessitate antibiotic therapy. Surgery would be under general anesthesia with a surgical observation overnight stay in the hospital. The wound may be left open. If so a VAC will be placed the next day. If the wound can be closed easily without complex revision reconstruction, then I will do so over a drain. The drain would be left in for several days. A more thorough and complex revision reconstruction with advancement of the posterior muscles to provide additional padding can be done in the future once the HgbA1c is less than 8. Patient is aware that healing may be suboptimal because of her diabetes mellitus and her smoking and any presence of infection. She voices understanding that ultimately depending on any healing problems that she may encounter, that she may eventually need an AKA. She is aware of that p ossibility and wants to proceed with aggressive medical and surgical treatment to minimize that possibility. Patient was informed of the risks and complications of the procedure including alternatives to surgery. These were discussed with the patient personally. Patient voices understanding and wishes to proceed. Encouraged patient to stop smoking as it may have deleterious effects on wound healing. Patient also has a diverting colostomy for over a year when she initially sustained her necrotizing infection. The necrotizing infection has healed. She is interested in having the colostomy reversed. Will set her up with General Surgery for evaluation.
[2018-12-28] VITALS (10 sets, daily range): BP systolic 102–163; BP diastolic 68–102; PULSE 86–103; RESP 14–20; TEMP 36.2–37.2; O2SAT 92–99; BMI 33.3
--- NOTE | 2018-12-28 09:38 | EKG12_ITS ---
Test Reason : PREOP Blood Pressure : / mmHG Vent. Rate : 101 BPM Atrial Rate : 101 BPM P-R Int : 152 ms QRS Dur : 074 ms QT Int : 350 ms P-R-T Axes : 021 048 039 degrees QTc Int : 453 ms Sinus tachycardia Otherwise normal ECG Confirmed by DOUG RILEY, FAISAL ([id number]), editorial project manager DINESH CORDERO ([id number]) on 12/30/2018 1:42:24 PM Referred By: Grzegorz Guadarrama Confirmed By:FAISAL CAMACHO MD
[2018-12-28 09:59] LABS: Hematocrit 40.9 % (37-47); Hemoglobin 13.9 g/dl (12.0-15.0); Mean Corpuscular Volume 88.1 fL (81-99); Mean Platelet Vol. 10.1 fl (6.2-12.0); Platelet Count 267 K/mm3 (150-450); RBC Distribution Width CV 15.3 % (11.6-14.6); RBC Distribution Width SD 49.2 fl (35.1-43.9); Red Blood Count 4.64 M/mm3 (4.2-5.4); White Blood Count 5.4 K/mm3 (4.4-11.0)
[2018-12-28 10:00] LABS: Scan Indicated on CBC? Y/N NO
[2018-12-28 10:13] LABS: Anion Gap 2 (5-15); BUN 12 mg/dL (7-18); BUN/Creat Ratio 17.7 RATIO (10-20); Calcium,Total 8.6 mg/dL (8.5-10.1); Chloride 107 mmol/L (98-107); Creatinine, Serum 0.68 mg/dL (0.55-1.02); EST Glomerular Filtration Rate 99 mL/min (>60); Est Glom Filt Rate - Afr Amer 120 mL/min (>60); Estimated Creatinine Clearance 104.28 ml/min; Glucose 230 mg/dL (74-106); Potassium 4.1 mmol/L (3.5-5.1); Sodium Level 138 mmol/L (136-145)
[2018-12-28] MEDS: Vancomycin IV 1,000 MG/200 ML BAG 200 MG IV (10:55)
--- NOTE | 2018-12-28 11:00 | BON_PTH ---
PATIENT: BERTRAM GARY LOC: MS3 U#:[id number] AGE/SX: 48/F ROOM: AK318 RE12/29/[address]: Dr. Grzegorz Guadarrama MD : 1970 BED: 1 DIS: 12/31/2018 SPEC #: [id number] RECD: 12/29/18 08:41 STATUS: ZENA REQ #: [id number] LANIE: 12/28/18 11:[address]: Grzegorz Guadarrama DEPT: SURGICAL PATHOLOGY RECD BY: Bill Espinoza ENTERED: 12/29/18 11:31 SP TYPE: Bone OTHR DR: MD Dr. Sasha Kay MD Tissues: A - Tibia, NOS B - Tibia, NOS Procedures: Decalcification bone/plaque Surgery Specimen Level III HEADER OPERATION: Surgical prep below knee amputation stump, excisional debrided PRE-OP DIAGNOSIS: Painful right BKA stump TISSUE SUBMITTED: A. Bone right tibia, B. Soft tissue right tibia MICROSCOPIC DIAGNOSIS A. Bone, right tibia: Pieces of bone, negative for acute osteomyelitis. B. Soft tissue, right tibia: Fragments of fibroadipose tissue, fibroconnective tissue, skeletal muscle tissue with focal fibrinous exudation and reactive changes. SJ:nain 01/01/19 MICROSCOPIC DESCRIPTION Slides are reviewed. GROSS DESCRIPTION A - Received in fixative is one container labeled with the patient's name and designated right tibia bone. The specimen consists of two irregular fragments of jarrell bone measuring in aggregate 2.6 x 1.2 x 0.2 cm. The specimen is submitted in its entirety in one cassette after decalcification. B - Received in fixative is one container labeled with the patient's name and designated soft tissue right tibia. The specimen consists of multiple irregular fragments of light to dark jarrell soft tissue that in aggregate measure 5.5 x 4.5 x 0.5 cm. The specimen is totally submitted in three cassettes. / AM:nain 12/29/18 TC:5 CPT: 05521 x2, 65370
[2018-12-28] MEDS: Mupirocin Ointment 22gm Tube 1 APPLIC (12:44)
--- NOTE | 2018-12-28 13:07 | PCM.OPRPT ---
Report of Operation Date of Procedure: 12/28/18 Pre-Operative Diagnosis: 1. Painful right BKA stump. 2. Fluid collection anterior aspect of stump. 3. Diabetes mellitus. 4. PVD. 5. Smoker. 6. History of necrotizing infection. 7. History of diverting colostomy. Post-Operative Diagnosis: 1. Painful right BKA stump. 2. 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 3. Diabetes mellitus. 4. PVD. 5. Smoker. 6. History of necrotizing infection. 7. History of diverting colostomy. Surgery/Procedure Performed:: 1. 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 2. Partial ostectomy tibia for osteomyelitis. 3. Complex secondary wound closure revision reconstruction. Description of Surgical Findings:: 48 year old woman presents with pain in her right BKA stump that has worsened over the last several months. She states she underwent the right BKA about 4 years ago. About 6 months postop she needed additional surgery with removal of scar tissue. She is also in the process of getting her prosthesis revised as well. She denies any fever. She denies any recent trauma. She denies any recent infection. She denies any drainage. She presents today for further evaluation and treatment. As a side note, patient had a necrotizing infection in [place] last year and needed a diverting colostomy. Her wounds have healed, and she is interested in a colostomy reversal. She had an xray done on 11/20/18 which showed no foreign body and no fracture seen. An MRI was done on 12/01/18 which showed no acute osteomyelitis. A fluid collection was seen anteriorly with a questionable abscess with clinical correlation. Some muscle atrophy also seen. Patient was informed of the risks and complications of the procedure including alternatives to surgery. These were discussed with the patient personally. Patient voices understanding and wishes to proceed. Some of the risks and complications were included in a form from the [employer]. IV Fluids - 1300 ml. Urine Output - 200 ml. Size of defect anterior aspect right BKA stump - 2 x 0.6 x 0.7 cm. I used Yaw absorbable hemostat. Reference Number - [id number]. Lot Number - [id number]. Expiration - October 05, 2023. distillery miller helper: Antonio,Rosendo - STORE STOCK ASSOCIATE. Type of Anesthesia:: General Specimen's removed: 1. Right BKA stump soft tissue and to Pathology and Microbiology. 2. Right BKA stump tibial bone to Pathology and Microbiology. Drains: Govind. Estimated Blood Loss (mL): 50 ml. Fluids Replaced: 1500 ml (IV Fluids 1300 ml, Urine Output 200 ml). Description of Procedure: Patient was taken to OR in supine position and was placed under general anesthesia. The right leg amputation stump was prepped and draped in the usual fashion. SCD's were placed for DVT prophylaxis on the other leg. Perioperative antibiotics were given intravenously. A harper catheter was placed. Using xylocaine with epinephrine, the stump incision scar was infiltrated. After waiting 5 minutes for the anesthetic to take effect, I made an incision through the previous scar on the stump. Patient states she had pain in the stump from her prosthesis. The incision was carried down through the subcutaneous tissue until indurated scar tissue was seen around the tibial bone stump. Minimal muscle was seen at the level of the stump bone. I told the patient that I would like to try and free up some of the posterior muscle to try and advance it over the bone to provide additional padding. However, she has a HgbA1c of 10.9. Mobilizing the muscle is elective and she is at increased risk for wound healing issues. Therefore I will try and minimize my dissection today. When her hgbA1c is < 8 in the future, we can try and advance the muscle at that time. Discussed with the patient, that sometimes the posterior muscle is too contracted and scarred that it cannot be advanced. When I freed up the tibial bone by excising the surrounding indurated scar tissue, there was some bony prominences inferiorly which could explain the pain she was having. I also dissected superiorly and there were several bony prominences that could easily explain her pain on the anterior aspect of the stump and could partially responsible for the pressure bruise on the anterior aspect with some skin discoloration and some fluctuance. This area coincides to the area on MRI that suggests a fluid collection or possible abscess with clinical correlation needed. I used an osteotome and a mallet to free up some bone inferiorly. I also used an osteotome and a mallet to excise the bony prominences on the anterior aspect of the tibial bone. I could not easily reach the fluid pocket from the inferior incision. Therefore I made a separate longitudinal incision directly over the area of fluctuance on the anterior aspect of the stump. Incision was carried down through the subcutaneous tissue until a capsule was seen. Incision was made and copious amounts of serosanguinous fluid was expressed. No gross pus was seen. There was some thickened drainage and some exudate present. The abnormal bursal scar tissue was excised and debrided down to the tibial bone. The remaining anterior portion of the tibial bone after partial ostectomy was smoothed out using a rasp. The wounds were irrigated with saline. Hemostasis was obtained with electrocautery. Half the soft tissue and half the bone was sent to Pathology for analysis to rule out carcinoma and to evaluate for osteomyelitis. Half the soft tissue and half the bone was sent to Microbiology for culture. A positive culture will necessitate antibiotic therapy. The wound was sprayed with Yaw absorbable hemostat to minimize seroma formation. I placed a size 15 Govind drain through a separate stab incision medially and secured to the skin with 3-0 Nylon suture. The stump was closed with a complex multiple layered secondary wound closure revision reconstruction. I used 2-0 Vicryl for the deep subcutaneous tissue and some of the remaining muscle present. The deep dermis and subcutaneous tissue was approximated with 3-0 Monocryl interrupted sutures. The skin was approximated with 3-0 Nylon vertical mattress sutures. Antibiotic ointment was applied followed by Xeroform gauze. The length of the complex secondary wound closure revision reconstruction was 11 cm. The anterior aspect of the stump wound measured 2 x 0.6 x 0.7 cm. The wound was dressed with Mepitel nonadherent dressing followed by Kerlix gauze and Betadine followed by dry Kerlix gauze and ABD pads followed by compression JOSE D wrap. I had placed the tourniquet on the thigh preop in case I needed to inflate it during the case to help with control of bleeding issues during the case. It did not need to be inflated during the surgery. Patient tolerated the procedure well and was sent to PACU in satisfactory condition. Patient will be sent upstairs for continued postop care. The wound VAC will be placed tomorrow. Grafts/Implants Used: None. - Complications None. - Admit VTE Documentation VTE Present on Admission: No VTE Mechan Device Prophylaxis: SCD's VTE Pharm Prophylaxis ordered?: Yes Code Visit Surgery Charges CPT - 48128 ICD-10 - T87.89, S81.801A, T87.43, E11.9, I73.9, Z87.39, Z89.511, F17.200 07206 T87.89, T87.43, Z87.39, E11.9, Z89.511, S81.801A, I73.9, F17.200 35481 T87.89, T87.43, S81.801A, E11.9, I73.9, Z87.39, Z89.511, F17.200
[2018-12-28 14:25] LABS: Bedside Glucose 223 mg/dL (70-110)
--- NOTE | 2018-12-28 14:46 | PCM.RX.CS ---
Consult Pharmacy has been consulted to manage selected antiobiotic: Vancomycin Type of Consult: New start Suspected Infection: Skin/Soft tissue Prior Doses of Antibiotics Received/Current Regimen: Vancomycin 1gm IV x1 PreOp 12/28/18 at 1055 Labs: Sodium 138 mmol/L (136-145) 12/28/18 09:42 Potassium 4.1 mmol/L (3.5-5.1) 12/28/18 09:42 Chloride 107 mmol/L (98-107) 12/28/18 09:42 Carbon Dioxide 29.0 mmol/L (21.0-32.0) 12/28/18 09:42 Anion Gap 2 (5-15) L 12/28/18 09:42 BUN 12 mg/dL (7-18) 12/28/18 09:42 Creatinine 0.68 mg/dL (0.55-1.02) 12/28/18 09:42 Est GFR (MDRD) Af Amer 120 mL/min (>60) 12/28/18 09:42 Est GFR (MDRD) Non-Af 99 mL/min (>60) 12/28/18 09:42 BUN/Creatinine Ratio 17.7 RATIO (10-20) 12/28/18 09:42 Glucose 230 mg/dL (74-106) H 12/28/18 09:42 Weight used for dosin kg Estimated Creatinine Clearance: 104ml/min Goal Trough: 10-15 mcg/mL Pharmacy Plan for Drug Dosing: Pt is a 48 year old, 68inch F. Goal trough is ordered to be 10-15. Recommend initial dosing of Vancomycin 1750mg IV q12h starting 12/28/18 at 2000. Trough will be checked before the 4th dose on 12/30/18 at 0730. Pharmacy Service will continue to monitor and adjust dosing as required. Follow-Up Labs: Trough Vancomycin - 12/30/18 at 0730
[2018-12-28] MEDS: oxyCODONE 5 MG Tablet 10 MG PO ×2 (15:15→20:47)
[2018-12-28] MEDS: Lactated Ringers 1,000 ML 60 ML IV (15:15)
[2018-12-28] MEDS: Baclofen 10 MG Tablet PO ×2 (15:20→21:26)
[2018-12-28 16:50] LABS: Bedside Glucose 218 mg/dL (70-110)
--- NOTE | 2018-12-28 17:26 | PCM.PROGNOTE ---
Subjective: Pt underwent right BKA stump debridement today with Dr. Guadarrama after presenting with increased pain over this area. She currently is resting comfortably in bed post op eating salad. She is lethargic, otherwise no SOB, cough, fevers/chills, nausea/vomiting. - Physical Exam General: Alert, Oriented x3, Cooperative, Lethargic HEENT: Atraumatic, PERRLA, EOMI, Normocephalic Neck: Supple, No JVD, Negative Carotid Bruits Lungs: Clear to auscultation, Normal air movement Cardiovascular: Regular rate, No murmurs Abdomen: Bowel Sounds Present, Soft, Non Tender, Obese Extremities: No edema, Capillary Refill Less than 3 Seconds, - - post op right BKA debridement Skin: No rashes, No breakdown Musculoskeletal: No Tenderness to Palpation of Joints or Extremities Neurological: Cranial nerves II-XII grossly intact Psych/Mental Status: Normal Affect, Appropriate Vital Signs Temp Pulse Resp BP Pulse Ox 98.1 F 91 18 134/86 H 94 12/28/18 15:31 12/28/18 15:31 12/28/18 15:31 12/28/18 15:31 12/28/18 15:31 Oxygen Flow Rate (L/min) 5 Oxygen Delivery Method Room Air Weight: 219 lb 5.759 oz Body Mass Index (BMI) 33.3 Finger Stick Blood Glucose 223 Intake and Output for Last 24 Hours 12/26/18 12/27/18 12/28/18 23:59 23:59 23:59 Intake Total 1600 / 1600 Output Total 630 / 630 Balance 970 / 970 Laboratory Tests Past 24 Hrs 12/28/18 12/28/18 09:42 09:42 WBC 5.4 RBC 4.64 Hgb 13.9 Hct 40.9 MCV 88.1 MCH 30.0 MCHC 34.0 RDW 15.3 H RDW Differential 49.2 H Plt Count 267 MPV 10.1 Sodium 138 Potassium 4.1 Chloride 107 Carbon Dioxide 29.0 Anion Gap 2 L BUN 12 Creatinine 0.68 Estim Creat Clear Calc 104.28 Est GFR (MDRD) Af Amer 120 Est GFR (MDRD) Non-Af 99 BUN/Creatinine Ratio 17.7 Glucose 230 H Calcium 8.6 POC Glucose 12/28/18 12/28/18 16:40 14:17 POC Glucose 218 H 223 H Medical Necessity - Tobacco Use Smoking Status: Current every day smoker Tobacco Use: Cigarettes Assessment/Plan All Active Problems (Last Reviewed 11/16/18 @ 09:55 by Alma Delia Borrego) Skin ulcer of abdomen (Acute) Vulvovaginal candidiasis (Acute) Type 2 diabetes mellitus with other skin ulcer (Acute) Skin flap infection (Acute) Osteomyelitis (Acute) 1. Left BKA stump pain post op D#0 debridement with concern for underlying infection- recent MRI 11/25 with no osteo, however there was a rim enhancing fluid collection next to the surgical site 2.2x0.6x1.4cm. No fever/leukocytosis. Wound vac on. On Vanc/flagyl. Hx MRSA, MSSE infections. -BKA originally was 4 years ago -Follow surgical cultures. 2. DMt2 - continue SSI, lantus, mealtime insulin. titrate to response. last a1c 10.9 on 11/24. Titrate as tolerated while here. 3. 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 PVD - on plavix 5. Nicotine abuse - cessation, will complicate wound healing 6. Anxiety/Depression - cymbalta, valium 7. Chronic RLE and back pain - baclofen, lyrica, cymbalta 8. GERD - on ppi DVT ppx: lovenox Thank you for the opportunity to participate in the care of this patient. This patient was seen by Pablo Cadena PA-C under the supervision of Doctor Zimmerman.
[2018-12-28] MEDS: Insulin Lispro 100 UNIT/ML INSULN.PEN 12 UNIT SC (18:05)
[2018-12-28 18:06] LABS: Bedside Glucose 310 mg/dL (70-110)
[2018-12-28] MEDS: HYDROmorphone 1 MG/ML Syringe IV (19:40)
[2018-12-28] MEDS: diazePAM 5 MG Tablet PO (20:15)
[2018-12-28] MEDS: Pregabalin 50 MG Capsule 100 MG PO (21:26)
[2018-12-28] MEDS: Famotidine 20 MG Tablet PO (21:26)
[2018-12-28] MEDS: busPIRone 5 MG Tablet 10 MG PO (21:27)
[2018-12-28] MEDS: cloNIDine HCl 0.1 MG Tablet PO (21:27)
[2018-12-28] MEDS: DULoxetine Hcl 60 MG Capsule PO (21:27)
[2018-12-28] MEDS: Insulin Lispro 100 UNIT/ML INSULN.PEN SC (21:28)
[2018-12-28 21:56] LABS: Bedside Glucose 289 mg/dL (70-110)
[2018-12-28] MEDS: HYDROmorphone 1 MG/ML Syringe 2 MG IV (22:53)
[2018-12-29] MEDS: oxyCODONE 5 MG Tablet 10 MG PO ×5 (01:33→19:46)
[2018-12-29 02:00] VITALS: BP 115/78; PULSE 89; RESP 16; TEMP 37.7; O2SAT 96
[2018-12-29] MEDS: HYDROmorphone 1 MG/ML Syringe 2 MG IV ×4 (02:34→22:37)
[2018-12-29] MEDS: Pregabalin 50 MG Capsule 100 MG PO ×3 (05:38→21:47)
[2018-12-29] MEDS: busPIRone 5 MG Tablet 10 MG PO ×3 (05:39→21:47)
[2018-12-29] MEDS: Baclofen 10 MG Tablet PO ×3 (05:39→21:47)
[2018-12-29] MEDS: Enoxaparin 30 MG/0.3 ML Syringe SC (05:43)
[2018-12-29 07:26] LABS: Hematocrit 36.7 % (37-47); Hemoglobin 11.6 g/dl (12.0-15.0); Mean Corp Hgb Conc 31.6 g/gl (32-36); Mean Corpuscular Hgb 28.8 pg (27.0-32.0); Mean Corpuscular Volume 91.1 fL (81-99); Mean Platelet Vol. 9.9 fl (6.2-12.0); Platelet Count 255 K/mm3 (150-450); RBC Distribution Width CV 15.6 % (11.6-14.6); RBC Distribution Width SD 51.9 fl (35.1-43.9); Red Blood Count 4.03 M/mm3 (4.2-5.4); White Blood Count 7.3 K/mm3 (4.4-11.0)
[2018-12-29 07:35] LABS: Scan Indicated on CBC? Y/N NO
[2018-12-29 07:35] LABS: Bedside Glucose 194 mg/dL (70-110)
[2018-12-29] MEDS: diazePAM 5 MG Tablet PO (07:42)
[2018-12-29] MEDS: Insulin Lispro 100 UNIT/ML INSULN.PEN 12 UNIT SC ×3 (07:43→17:10)
[2018-12-29] MEDS: Insulin Lispro 100 UNIT/ML INSULN.PEN SC ×3 (07:44→17:11)
[2018-12-29 07:53] LABS: Anion Gap 3 (5-15); BUN 7 mg/dL (7-18); BUN/Creat Ratio 10.3 RATIO (10-20); Chloride 109 mmol/L (98-107); Creatinine, Serum 0.68 mg/dL (0.55-1.02); EST Glomerular Filtration Rate 98 mL/min (>60); Est Glom Filt Rate - Afr Amer 119 mL/min (>60); Estimated Creatinine Clearance 104.28 ml/min; Glucose 184 mg/dL (74-106); Potassium 3.7 mmol/L (3.5-5.1); Sodium Level 141 mmol/L (136-145)
[2018-12-29 08:00] VITALS: BP 142/71; PULSE 92; RESP 16; TEMP 36.7; O2SAT 94
[2018-12-29 09:00] VITALS: RESP 16
[2018-12-29] MEDS: Clopidogrel Bisulfate 75 MG Tablet PO (09:23)
[2018-12-29] MEDS: Docusate Sodium 100 MG Capsule PO (09:23)
[2018-12-29] MEDS: Atorvastatin Calcium 40 MG Tablet PO (09:23)
[2018-12-29] MEDS: Famotidine 20 MG Tablet PO ×2 (09:23→21:47)
[2018-12-29] MEDS: DULoxetine Hcl 60 MG Capsule PO ×2 (09:23→21:47)
[2018-12-29] MEDS: Pantoprazole Sodium 40 MG Tablet PO (09:24)
[2018-12-29] MEDS: Loratadine 10 MG Tablet PO (09:27)
--- NOTE | 2018-12-29 09:49 | NURSING ---
Pt refusing to let this nurse apply the wound VAC until she has her Dilaudid. patient had OxyIR approx 30 min ago, she had her Valium and had Dilaudid around 5am. Pt is falling asleep while talking with this nurse, but states she is in a lot of pain. pt states I have had the wound VAC before and know what it feels like. I'm not doing it until I have my Dilaudid. Let ADIN Betancourt know. states she is waiting on the Dilaudid to be stocked in the [facility]. will place wound VAC when ready.
--- NOTE | 2018-12-29 11:00 | CASEMGMT ---
ADIN HALEY Face to Face with patient for initial transition planning/care coordination assessment. RN CM introduced self and role at [facility]. Patient lying in bed, alert and oriented, daughter at beside. Patient willing to participate in assessment and is able to answer all questions appropriately. Care providers, pharmacy, and demographics verified. Patient wishes to discharge home with C through who she had previous which is [facility]. Patient states she has no further needs or concerns at this time. CM to follow for discharge planning needs that may arise. PCP: Jennifer Specialists: None Preferred Pharmacy: [facility] Insurance: [employer] Prescription Benefit: yes Living Will/HPOA: none LNOK: 15yo daughter Living Arrangements: Patient lives with daughter in 2 story house with bed and bath on first floor. Transportation: Self/[employer] DME/C: Patient has shower chair, raised toilet seat, cane, walker, and wheelchair. Patient has [facility] in the past. Referral was sent to [facility] and they are able to accept the patient Disposition Plan: Patient to discharge home with [facility], family support, and follow-up plans in place. Carolyn HEATH, RN, CM
--- NOTE | 2018-12-29 11:41 | NURSING ---
wound photo: right leg
[2018-12-29 12:01] LABS: Bedside Glucose 180 mg/dL (70-110)
[2018-12-29] MEDS: Lactated Ringers 1,000 ML 60 ML IV (13:42)
[2018-12-29] MEDS: 0.9% NaCl Peripheral Flush Adult/Peds IV (13:47)
[2018-12-29 14:47] VITALS: BP 113/60; PULSE 100; RESP 18; TEMP 37.2; O2SAT 97
--- NOTE | 2018-12-29 14:49 | PCM.PN.HOSP ---
Vitals/I&O's: Vital Signs Temp Pulse Resp BP Pulse Ox 98.0 F 92 16 142/71 H 94 12/29/18 08:00 12/29/18 08:00 12/29/18 09:00 12/29/18 08:00 12/29/18 08:00 Oxygen Flow Rate (L/min) 2 Oxygen Delivery Method Nasal Cannula Weight: 219 lb 5.759 oz Body Mass Index (BMI) 33.3 Finger Stick Blood Glucose 223 Intake and Output for Last 24 Hours 12/27/18 12/28/18 12/29/18 23:59 23:59 23:59 Intake Total 1840 / 1840 3267 / 3267 Output Total 930 / 930 1830 / 1830 Balance 910 / 910 1437 / 1437 General: Alert, Oriented x3, Cooperative HEENT: Atraumatic, PERRLA, EOMI, Normocephalic Neck: Supple, No JVD, Negative Carotid Bruits Lungs: Clear to auscultation, Normal air movement, No rhonchi, No wheeze, No rales Cardiovascular: Regular rate, Regular Rhythm, Normal S1, Normal S2, No murmurs, - - Colostomy present onLeft lower quadrant. Beefy red granulation tissue present. Abdomen: Bowel Sounds Present, Soft, Non Tender Extremities: No edema, Capillary Refill Less than 3 Seconds Skin: No breakdown, Ulcer/ Wound Musculoskeletal: Arthritic Changes, Tenderness - Tenderness at right BKA stump. Neurological: Cranial nerves II-XII grossly intact, Neuro grossly intact Psych/Mental Status: Normal Affect, Appropriate Microbiology Past 72 Hours 12/28/18 Unknown Bone - Leg, Right Gram Stain - Final 12/28/18 Unknown Bone - Leg, Right Wound Culture - Preliminary No growth-Final to follow 12/28/18 Unknown Tissue - Leg, Right Gram Stain - Final 12/28/18 Unknown Tissue - Leg, Right Wound Culture - Preliminary No growth-Final to follow Laboratory Results 12/28/18 16:40: POC Glucose 218 H 12/28/18 17:57: POC Glucose 310 H 12/28/18 21:21: POC Glucose 289 H 12/29/18 06:37: WBC 7.3, RBC 4.03 L, Hgb 11.6 L, Hct 36.7 L, MCV 91.1, MCH 28.8, MCHC 31.6 L, RDW 15.6 H, RDW Differential 51.9 H, Plt Count 255, MPV 9.9 12/29/18 06:37: Sodium 141, Potassium 3.7, Chloride 109 H, Carbon Dioxide 29.0, Anion Gap 3 L, BUN 7, Creatinine 0.68, Estim Creat Clear Calc 104.28, Est GFR (MDRD) Af Amer 119, Est GFR (MDRD) Non-Af 98, BUN/Creatinine Ratio 10.3, Glucose 184 H, Calcium 8.0 L, Prealbumin 15.0 L 12/29/18 07:32: POC Glucose 194 H 12/29/18 11:57: POC Glucose 180 H Current Medications Acetaminophen (Tylenol) 500 mg PO Q6H PRN PRN PRN Reason: PAIN Atorvastatin Calcium (Lipitor) 40 mg PO DAILY [facility] Last Admin: 12/29/18 09:23 Dose: 40 mg Baclofen (Lioresal) 10 mg PO TID [facility] Last Admin: 12/29/18 13:40 Dose: 10 mg Buspirone HCl (Buspar) 10 mg PO TID [facility] Last Admin: 12/29/18 13:39 Dose: 10 mg Clonidine (Catapres) 0.1 mg PO QHS [facility] Last Admin: 12/28/18 21:27 Dose: 0.1 mg Clopidogrel Bisulfate (Plavix) 75 mg PO DAILY [facility] Last Admin: 12/29/18 09:23 Dose: 75 mg Diazepam (Valium) 5 mg PO TID PRN PRN PRN Reason: SPASMS Last Admin: 12/29/18 07:42 Dose: 5 mg Docusate Sodium (Colace) 100 mg PO BID [facility] Last Admin: 12/29/18 09:23 Dose: 100 mg Duloxetine HCl (Cymbalta) 60 mg PO BID [facility] Last Admin: 12/29/18 09:23 Dose: 60 mg Enoxaparin Sodium (Lovenox) 30 mg SC DAILY@0600 [facility] Last Admin: 12/29/18 05:43 Dose: 30 mg Famotidine (Pepcid) 20 mg PO BID [facility] Last Admin: 12/29/18 09:23 Dose: 20 mg Hydromorphone HCl (Dilaudid Inj) 2 mg IV Q3H PRN PRN PRN Reason: SEVERE PAIN (6-10/10) Last Admin: 12/29/18 13:47 Dose: 2 mg Metronidazole (Flagyl) 500 mg in 100 mls @ 100 mls/hr IV Q8 [facility] Last Admin: 12/29/18 13:39 Dose: 100 mls/hr Lactated Ringer's () 1,000 mls @ 60 mls/hr IV .[id number] [facility] Last Admin: 12/29/18 13:42 Dose: 60 mls/hr Vancomycin IV Pharmacy to Dose (1 ea/ Sodium Chloride) 500 mls @ 250 mls/hr IV X1 PRN; Protocol PRN Reason: Rx to Dose Vancomycin HCl 1,750 mg/ (Sodium Chloride) 535 mls @ 250 mls/hr IV Q12H [facility] Last Admin: 12/29/18 07:43 Dose: 250 mls/hr Insulin Glargine (Lantus (Bkc)) 50 units SC QHS [facility] Last Admin: 12/28/18 21:28 Dose: 50 units Insulin Human Lispro (Humalog Kwikpen (Bkc)) 12 unit SC TIDAC [facility] Last Admin: 12/29/18 12:00 Dose: 12 units Insulin Human Lispro (Humalog Kwikpen (Bkc)) 0 unit SC ACHS [facility]; Protocol Last Admin: 12/29/18 12:00 Dose: 1 units Loratadine (Claritin) 10 mg PO DAILY [facility] Last Admin: 12/29/18 09:27 Dose: 10 mg Non-Formulary Medication (Dulaglutide [Trulicity]) 1.5 mg SC QWEEK [facility] Nutritional Formula (James - [place] Flavor) 1 packet PO BIDCM [facility] Last Admin: 12/29/18 07:43 Dose: 1 packet Ondansetron HCl (Zofran) 4 mg IV Q6H PRN PRN PRN Reason: NAUSEA Oxycodone HCl (Oxyir) 10 mg PO Q4H PRN PRN PRN Reason: SEVERE PAIN (6-06/17) Last Admin: 12/29/18 13:38 Dose: 10 mg Pantoprazole Sodium (Protonix) 40 mg PO DAILY [facility] Last Admin: 12/29/18 09:24 Dose: 40 mg Pregabalin (Lyrica) 100 mg PO TID [facility] Last Admin: 12/29/18 13:38 Dose: 100 mg Promethazine HCl (Phenergan Tablet) 25 mg PO Q4H PRN PRN PRN Reason: NAUSEA/VOMITING Sodium Chloride () 5 - 15 ml IV UD PRN PRN Reason: SALINE FLUSH Last Admin: 12/29/18 13:47 Dose: 10 ml Medical Necessity - Tobacco Use Smoking Status: Current every day smoker Tobacco Use: Cigarettes Assessment/Plan All Active Problems (Last Reviewed 11/16/18 @ 09:55 by Alma Delia Borrego) Skin ulcer of abdomen (Acute) Vulvovaginal candidiasis (Acute) Type 2 diabetes mellitus with other skin ulcer (Acute) Skin flap infection (Acute) Osteomyelitis (Acute) The patient is a 48 y/o F w/ PMHx of obesity, Anxiety and Depression, Diabetes mellitus type II with chronic polyneuropathy, GERD, Raynaud's disease, peripheral arterial disease with history of thrombosis in bilateral femoral artery was admitted on 12/28/18 w/ history of ongoing pain to the right BKA stump with fluid collection in the anterior aspect for planned right BKA stump revision. The patient had Surgical incision, drainage and excisional debridement of infected seroma anterior to right BKA stump. Patient had partial ostectomy tibia for osteomyelitis. Surgery was done on 12/28/2018 1. Left BKA stump pain: Patient had above-mentioned procedure on 12/28/2018 for clinical suspicion of osteomyelitis. The patient had recent MRI 11/25 with no osteo, however there was a rim enhancing fluid collection next to the surgical site 2.2x0.6x1.4cm. No fever/leukocytosis. Wound vac neck is placed on 12/29/2017. On Vanc/flagyl. Hx MRSA, MSSE infections. Surgical site is wrapped with Javier wrap bandage. CARMEN drain present with minimal 10 mL serous fluid. -BKA originally was 4 years ago -Follow surgical cultures. Preliminary Gram stain of tissue culture does not show any organism growth. Patient complain of significant pain over surgical site. Pain control. PT and OT. Patient had Jackson catheter on 12/26/2018. Once pain is controlled and patient is more well, can remove Jackson catheter. 2. DMt2 - continue SSI, lantus, mealtime insulin. titrate to response. last a1c 10.9 on 11/24. 3. 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 PVD - on plavix 5. Nicotine abuse - cessation, will complicate wound healing 6. Anxiety/Depression - cymbalta, valium 7. Chronic RLE and back pain - baclofen, lyrica, cymbalta 8. GERD - on ppi DVT ppx: lovenox
--- NOTE | 2018-12-29 14:55 | PN_ITS ---
Vitals/I&O's: Vital Signs Temp Pulse Resp BP Pulse Ox 98.0 F 92 16 142/71 H 94 12/29/18 08:00 12/29/18 08:00 12/29/18 09:00 12/29/18 08:00 12/29/18 08:00 Oxygen Flow Rate (L/min) 2 Oxygen Delivery Method Nasal Cannula Weight: 219 lb 5.759 oz Body Mass Index (BMI) 33.3 Finger Stick Blood Glucose 223 Intake and Output for Last 24 Hours 12/27/18 12/28/18 12/29/18 23:59 23:59 23:59 Intake Total 1840 / 1840 3267 / 3267 Output Total 930 / 930 1830 / 1830 Balance 910 / 910 1437 / 1437 General: Alert, Oriented x3, Cooperative HEENT: Atraumatic, PERRLA, EOMI, Normocephalic Neck: Supple, No JVD, Negative Carotid Bruits Lungs: Clear to auscultation, Normal air movement, No rhonchi, No wheeze, No rales Cardiovascular: Regular rate, Regular Rhythm, Normal S1, Normal S2, No murmurs, - - Colostomy present onLeft lower quadrant. Beefy red granulation tissue present. Abdomen: Bowel Sounds Present, Soft, Non Tender Extremities: No edema, Capillary Refill Less than 3 Seconds Skin: No breakdown, Ulcer/ Wound Musculoskeletal: Arthritic Changes, Tenderness - Tenderness at right BKA stump. Neurological: Cranial nerves II-XII grossly intact, Neuro grossly intact Psych/Mental Status: Normal Affect, Appropriate Microbiology Past 72 Hours 12/28/18 Unknown Bone - Leg, Right Gram Stain - Final 12/28/18 Unknown Bone - Leg, Right Wound Culture - Preliminary No growth-Final to follow 12/28/18 Unknown Tissue - Leg, Right Gram Stain - Final 12/28/18 Unknown Tissue - Leg, Right Wound Culture - Preliminary No growth-Final to follow Laboratory Results 12/28/18 16:40: POC Glucose 218 H 12/28/18 17:57: POC Glucose 310 H 12/28/18 21:21: POC Glucose 289 H 12/29/18 06:37: WBC 7.3, RBC 4.03 L, Hgb 11.6 L, Hct 36.7 L, MCV 91.1, MCH 28.8, MCHC 31.6 L, RDW 15.6 H, RDW Differential 51.9 H, Plt Count 255, MPV 9.9 12/29/18 06:37: Sodium 141, Potassium 3.7, Chloride 109 H, Carbon Dioxide 29.0, Anion Gap 3 L, BUN 7, Creatinine 0.68, Estim Creat Clear Calc 104.28, Est GFR (MDRD) Af Amer 119, Est GFR (MDRD) Non-Af 98, BUN/Creatinine Ratio 10.3, Glucose 184 H, Calcium 8.0 L, Prealbumin 15.0 L 12/29/18 07:32: POC Glucose 194 H 12/29/18 11:57: POC Glucose 180 H Current Medications Acetaminophen (Tylenol) 500 mg PO Q6H PRN PRN PRN Reason: PAIN Atorvastatin Calcium (Lipitor) 40 mg PO DAILY [facility] Last Admin: 12/29/18 09:23 Dose: 40 mg Baclofen (Lioresal) 10 mg PO TID [facility] Last Admin: 12/29/18 13:40 Dose: 10 mg Buspirone HCl (Buspar) 10 mg PO TID [facility] Last Admin: 12/29/18 13:39 Dose: 10 mg Clonidine (Catapres) 0.1 mg PO QHS [facility] Last Admin: 12/28/18 21:27 Dose: 0.1 mg Clopidogrel Bisulfate (Plavix) 75 mg PO DAILY [facility] Last Admin: 12/29/18 09:23 Dose: 75 mg Diazepam (Valium) 5 mg PO TID PRN PRN PRN Reason: SPASMS Last Admin: 12/29/18 07:42 Dose: 5 mg Docusate Sodium (Colace) 100 mg PO BID [facility] Last Admin: 12/29/18 09:23 Dose: 100 mg Duloxetine HCl (Cymbalta) 60 mg PO BID [facility] Last Admin: 12/29/18 09:23 Dose: 60 mg Enoxaparin Sodium (Lovenox) 30 mg SC DAILY@0600 [facility] Last Admin: 12/29/18 05:43 Dose: 30 mg Famotidine (Pepcid) 20 mg PO BID [facility] Last Admin: 12/29/18 09:23 Dose: 20 mg Hydromorphone HCl (Dilaudid Inj) 2 mg IV Q3H PRN PRN PRN Reason: SEVERE PAIN (6-10/10) Last Admin: 12/29/18 13:47 Dose: 2 mg Metronidazole (Flagyl) 500 mg in 100 mls @ 100 mls/hr IV Q8 [facility] Last Admin: 12/29/18 13:39 Dose: 100 mls/hr Lactated Ringer's () 1,000 mls @ 60 mls/hr IV .[id number] [facility] Last Admin: 12/29/18 13:42 Dose: 60 mls/hr Vancomycin IV Pharmacy to Dose (1 ea/ Sodium Chloride) 500 mls @ 250 mls/hr IV X1 PRN; Protocol PRN Reason: Rx to Dose Vancomycin HCl 1,750 mg/ (Sodium Chloride) 535 mls @ 250 mls/hr IV Q12H [facility] Last Admin: 12/29/18 07:43 Dose: 250 mls/hr Insulin Glargine (Lantus (Bkc)) 50 units SC QHS [facility] Last Admin: 12/28/18 21:28 Dose: 50 units Insulin Human Lispro (Humalog Kwikpen (Bkc)) 12 unit SC TIDAC [facility] Last Admin: 12/29/18 12:00 Dose: 12 units Insulin Human Lispro (Humalog Kwikpen (Bkc)) 0 unit SC ACHS [facility]; Protocol Last Admin: 12/29/18 12:00 Dose: 1 units Loratadine (Claritin) 10 mg PO DAILY [facility] Last Admin: 12/29/18 09:27 Dose: 10 mg Non-Formulary Medication (Dulaglutide [Trulicity]) 1.5 mg SC QWEEK [facility] Nutritional Formula (James - [place] Flavor) 1 packet PO BIDCM [facility] Last Admin: 12/29/18 07:43 Dose: 1 packet Ondansetron HCl (Zofran) 4 mg IV Q6H PRN PRN PRN Reason: NAUSEA Oxycodone HCl (Oxyir) 10 mg PO Q4H PRN PRN PRN Reason: SEVERE PAIN (6-06/17) Last Admin: 12/29/18 13:38 Dose: 10 mg Pantoprazole Sodium (Protonix) 40 mg PO DAILY [facility] Last Admin: 12/29/18 09:24 Dose: 40 mg Pregabalin (Lyrica) 100 mg PO TID [facility] Last Admin: 12/29/18 13:38 Dose: 100 mg Promethazine HCl (Phenergan Tablet) 25 mg PO Q4H PRN PRN PRN Reason: NAUSEA/VOMITING Sodium Chloride () 5 - 15 ml IV UD PRN PRN Reason: SALINE FLUSH Last Admin: 12/29/18 13:47 Dose: 10 ml Medical Necessity - Tobacco Use Smoking Status: Current every day smoker Tobacco Use: Cigarettes Assessment/Plan All Active Problems (Last Reviewed 11/16/18 @ 09:55 by Alma Delia Borrego) Skin ulcer of abdomen (Acute) Vulvovaginal candidiasis (Acute) Type 2 diabetes mellitus with other skin ulcer (Acute) Skin flap infection (Acute) Osteomyelitis (Acute) The patient is a 48 y/o F w/ PMHx of obesity, Anxiety and Depression, Diabetes mellitus type II with chronic polyneuropathy, GERD, Raynaud's disease, peripheral arterial disease with history of thrombosis in bilateral femoral artery was admitted on 12/28/18 w/ history of ongoing pain to the right BKA stump with fluid collection in the anterior aspect for planned right BKA stump revision. The patient had Surgical incision, drainage and excisional debridement of infected seroma anterior to right BKA stump. Patient had partial ostectomy tibia for osteomyelitis. Surgery was done on 12/28/2018 1. Left BKA stump pain: Patient had above-mentioned procedure on 12/28/2018 for clinical suspicion of osteomyelitis. The patient had recent MRI 11/25 with no osteo, however there was a rim enhancing fluid collection next to the surgical site 2.2x0.6x1.4cm. No fever/leukocytosis. Wound vac neck is placed on 12/29/2017. On Vanc/flagyl. Hx MRSA, MSSE infections. Surgical site is wrapped with Javier wrap bandage. CARMEN drain present with minimal 10 mL serous fluid. -BKA originally was 4 years ago -Follow surgical cultures. Preliminary Gram stain of tissue culture does not show any organism growth. Patient complain of significant pain over surgical site. Pain control. PT and OT. Patient had Jackson catheter on 12/26/2018. Once pain is controlled and patient is more well, can remove Jackson catheter. 2. DMt2 - continue SSI, lantus, mealtime insulin. titrate to response. last a1c 10.9 on 11/24. 3. 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 PVD - on plavix 5. Nicotine abuse - cessation, will complicate wound healing 6. Anxiety/Depression - cymbalta, valium 7. Chronic RLE and back pain - baclofen, lyrica, cymbalta 8. GERD - on ppi DVT ppx: lovenox
[2018-12-29 15:00] VITALS: RESP 18
--- NOTE | 2018-12-29 15:51 | CHAPLAIN ---
Type of Pastoral Visit _x__ Initial Visit ___ Follow-up Visit ___ On-call Visit ___ General Patient Visit ___ Spiritual Assessment ___ Family Conference ___ Bereavement ___ Rapid Response ___ Code Blue ___ Other (describe below) Pastoral Care Referral From ___ Patient ___ Family _x__ Nurse ___ Physician ___ Brim Ironer Hand ___ Shooter'S Helper ___ Other (describe below) Sacrament/Intervention _x__ Active listening ___ Anointing ___ Taoist ___ Bereavement ___ Communion ___ Jessica exploration ___ ___ Life review _x__ Prayer ___ Reconciliation ___ Sacrament of Sick _x__ Supportive presence ___ Wedding ___ Other (describe below) Pastoral Comments RN suggested visit to this patient; pt is alert and many family members in room; pt does welcome regulatory services consultant and family expresses thanks for visit; pt has endured several years of poor health and surgery according to her report and her spouse comments; pt says she has pain which has been reported to and addressed by RN; spouse expresses difficulty in watching his suffer as she has over these years; family is receptive to spiritual support and prayer
[2018-12-29 16:51] LABS: Bedside Glucose 166 mg/dL (70-110)
[2018-12-29 20:15] VITALS: BP 133/69; PULSE 91; RESP 18; TEMP 37.7; O2SAT 98
[2018-12-29] MEDS: cloNIDine HCl 0.1 MG Tablet PO (21:47)
[2018-12-29 22:16] LABS: Bedside Glucose 121 mg/dL (70-110)
--- NOTE | 2018-12-29 22:26 | PCM.PN.SRG ---
Subjective: Postop #1 Patient complains of wound pain. - Physical Exam General: Alert, Oriented x3 HEENT: PERRLA, EOMI Oral: Moist Mucosa Neck: Supple Abdomen: Soft, Non-Distended Skin: Ulcer/ Wound - anterior aspect wound right BKA stump is stable. No active bleeding seen. VAC applied today., Incision - right BKA stump incision is dry and intact. Neurological: Cranial nerves II-XII grossly intact Psych/Mental Status: Normal Affect, Appropriate Vital Signs Temp Pulse Resp BP Pulse Ox 99.8 F H 91 18 133/69 H 98 12/29/18 20:15 12/29/18 20:15 12/29/18 20:15 12/29/18 20:15 12/29/18 20:15 Oxygen Flow Rate (L/min) 2 Oxygen Delivery Method Nasal Cannula Weight: 219 lb 5.759 oz Body Mass Index (BMI) 33.3 Finger Stick Blood Glucose 223 Intake and Output for Last 24 Hours 12/27/18 12/28/18 12/29/18 23:59 23:59 23:59 Intake Total 1840 / 1840 4367 / 4367 Output Total 930 / 930 2330 / 2330 Balance 910 / 910 2036 / 2036 Microbiology Past 72 Hours 12/28/18 Unknown Gram Stain - Final Bone - Leg, Right Wound Culture - Preliminary No growth-Final to follow 12/28/18 Unknown Gram Stain - Final Tissue - Leg, Right Wound Culture - Preliminary No growth-Final to follow Pathology - pending. Laboratory Tests Past 24 Hrs 12/29/18 12/29/18 06:37 06:37 WBC 7.3 RBC 4.03 L Hgb 11.6 L Hct 36.7 L MCV 91.1 MCH 28.8 MCHC 31.6 L RDW 15.6 H RDW Differential 51.9 H Plt Count 255 MPV 9.9 Sodium 141 Potassium 3.7 Chloride 109 H Carbon Dioxide 29.0 Anion Gap 3 L BUN 7 Creatinine 0.68 Estim Creat Clear Calc 104.28 Est GFR (MDRD) Af Amer 119 Est GFR (MDRD) Non-Af 98 BUN/Creatinine Ratio 10.3 Glucose 184 H Calcium 8.0 L Prealbumin 15.0 L POC Glucose 12/29/18 12/29/18 12/29/18 21:44 16:44 11:57 POC Glucose 121 H 166 H 180 H 12/29/18 07:32 POC Glucose 194 H Medical Necessity - Tobacco Use Smoking Status: Current every day smoker Tobacco Use: Cigarettes Assessment/Plan All Active Problems (Last Reviewed 11/16/18 @ 09:55 by Alma Delia Borrego) Skin ulcer of abdomen (Acute) Vulvovaginal candidiasis (Acute) Type 2 diabetes mellitus with other skin ulcer (Acute) Skin flap infection (Acute) Osteomyelitis (Acute) 1. Painful right BKA stump. 2. 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 3. Diabetes mellitus. 4. PVD. 5. Smoker. 6. History of necrotizing infection. 7. History of diverting colostomy. 8. 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 Patient has complaints of pain in the right BKA stump. She still needs IV analgesia. Wound anterior aspect is stable. No active bleeding seen. VAC applied today. Operative culture negative thus far. Continue Vancomycin and Flagyl. Pathology is pending. Prealbumin was 15.0. Encourage nutritional supplementation with protein to help the healing process. Will wean to po analgesia in preparation for discharge. Anticipate a couple of days. After discharge, [facility]up [facility].
[2018-12-30 02:35] VITALS: BP 118/71; PULSE 93; RESP 18; TEMP 37.1; O2SAT 95
[2018-12-30] MEDS: HYDROmorphone 1 MG/ML Syringe 2 MG IV (02:40)
[2018-12-30] MEDS: Pregabalin 50 MG Capsule 100 MG PO ×3 (06:29→21:17)
[2018-12-30] MEDS: oxyCODONE 5 MG Tablet 10 MG PO ×4 (06:29→21:22)
[2018-12-30] MEDS: Baclofen 10 MG Tablet PO ×3 (06:30→21:20)
[2018-12-30] MEDS: busPIRone 5 MG Tablet 10 MG PO ×3 (06:31→21:20)
[2018-12-30] MEDS: Enoxaparin 30 MG/0.3 ML Syringe SC (06:34)
[2018-12-30 06:36] LABS: Bedside Glucose 106 mg/dL (70-110)
[2018-12-30 08:11] VITALS: BP 103/62; PULSE 98; RESP 18; TEMP 37.7; O2SAT 95
[2018-12-30 08:21] LABS: Vancomycin, Trough Level 12.5 ug/mL (5.0-15.0)
[2018-12-30] MEDS: Insulin Lispro 100 UNIT/ML INSULN.PEN 12 UNIT SC ×3 (09:39→18:01)
[2018-12-30 09:58] LABS: Anion Gap 6 (5-15); BUN 7 mg/dL (7-18); BUN/Creat Ratio 12.7 RATIO (10-20); Calcium,Total 7.9 mg/dL (8.5-10.1); Chloride 108 mmol/L (98-107); Creatinine, Serum 0.55 mg/dL (0.55-1.02); EST Glomerular Filtration Rate 126 mL/min (>60); Est Glom Filt Rate - Afr Amer 152 mL/min (>60); Estimated Creatinine Clearance 128.93 ml/min; Glucose 109 mg/dL (74-106); Potassium 3.6 mmol/L (3.5-5.1); Sodium Level 141 mmol/L (136-145)
[2018-12-30 10:02] LABS: Hemoglobin 11.1 g/dl (12.0-15.0); Mean Corp Hgb Conc 31.7 g/gl (32-36); Mean Corpuscular Volume 91.4 fL (81-99); Mean Platelet Vol. 10.3 fl (6.2-12.0); Platelet Count 217 K/mm3 (150-450); RBC Distribution Width CV 15.6 % (11.6-14.6); RBC Distribution Width SD 51.8 fl (35.1-43.9); Red Blood Count 3.83 M/mm3 (4.2-5.4); Scan Indicated on CBC? Y/N NO; White Blood Count 6.8 K/mm3 (4.4-11.0)
--- NOTE | 2018-12-30 10:23 | PCM.RX.CS ---
Consult Pharmacy has been consulted to manage selected antiobiotic: Vancomycin Type of Consult: Follow-up Suspected Infection: Skin/Soft tissue Prior Doses of Antibiotics Received/Current Regimen: Currently on 1750mg IV q12h with the 2 previous doses given last night at 19:47 and today at 08:05 Labs: Sodium 141 mmol/L (136-145) 12/30/18 07:18 Potassium 3.6 mmol/L (3.5-5.1) 12/30/18 07:18 Chloride 108 mmol/L (98-107) H 12/30/18 07:18 Carbon Dioxide 27.0 mmol/L (21.0-32.0) 12/30/18 07:18 Anion Gap 6 (5-15) 12/30/18 07:18 BUN 7 mg/dL (7-18) 12/30/18 07:18 Creatinine 0.55 mg/dL (0.55-1.02) 12/30/18 07:18 Est GFR (MDRD) Af Amer 152 mL/min (>60) 12/30/18 07:18 Est GFR (MDRD) Non-Af 126 mL/min (>60) 12/30/18 07:18 BUN/Creatinine Ratio 12.7 RATIO (10-20) 12/30/18 07:18 Glucose 109 mg/dL (74-106) H 12/30/18 07:18 Vancomycin Trough 12.5 ug/mL (5.0-15.0) 12/30/18 07:18 Microbiology: Microbiology 12/28/18 Unknown Bone - Leg, Right Gram Stain - Final 12/28/18 Unknown Bone - Leg, Right Wound Culture - Preliminary No growth-Final to follow 12/28/18 Unknown Bone - Leg, Right Anaerobic Culture - Preliminary No growth in 48 hours. 12/28/18 Unknown Tissue - Leg, Right Gram Stain - Final 12/28/18 Unknown Tissue - Leg, Right Wound Culture - Preliminary No growth-Final to follow 12/28/18 Unknown Tissue - Leg, Right Anaerobic Culture - Preliminary No growth in 48 hours. Weight used for dosin kg Estimated Creatinine Clearance: 128 ml/min Goal Trough: 10-15 mcg/mL Pharmacy Plan for Drug Dosing: Trough drawn before this morning's dose came back as 12.5 mg/L (drawn approx 11.5 hours after the previous dose). This is within the goal range of 10-15 mg/L so recommend to continue with the same dosing regimen. Recheck another trough in 4 days. Pharmacy Service will continue to monitor and adjust dosing as required. Follow-Up Labs: Trough Vancomycin Labs to be done on [date and time ordered]: 01/03/19 07:30
[2018-12-30 11:05] VITALS: BP 111/54
[2018-12-30] MEDS: Docusate Sodium 100 MG Capsule PO ×2 (11:05→21:20)
[2018-12-30] MEDS: Loratadine 10 MG Tablet PO (11:25)
[2018-12-30] MEDS: DULoxetine Hcl 60 MG Capsule PO ×2 (11:25→21:20)
[2018-12-30] MEDS: Pantoprazole Sodium 40 MG Tablet PO (11:27)
[2018-12-30] MEDS: Clopidogrel Bisulfate 75 MG Tablet PO (11:29)
[2018-12-30] MEDS: Atorvastatin Calcium 40 MG Tablet PO (11:29)
[2018-12-30] MEDS: Famotidine 20 MG Tablet PO ×2 (11:29→21:20)
[2018-12-30 11:45] LABS: Bedside Glucose 207 mg/dL (70-110)
[2018-12-30] MEDS: Insulin Lispro 100 UNIT/ML INSULN.PEN SC ×2 (13:16→21:18)
--- NOTE | 2018-12-30 14:42 | PCM.PN.HOSP ---
Subjective: Patient had low-grade temperature T-max 99.9 Fahrenheit. Otherwise stable blood pressure 111/54. She is not much pain today. Vitals/I&O's: Vital Signs Temp Pulse Resp BP Pulse Ox 99.9 F H 98 18 111/54 L 95 12/30/18 08:11 12/30/18 08:11 12/30/18 08:11 12/30/18 11:05 12/30/18 08:11 Oxygen Flow Rate (L/min) 2 Oxygen Delivery Method Nasal Cannula Weight: 219 lb 5.759 oz Body Mass Index (BMI) 33.3 Finger Stick Blood Glucose 223 Intake and Output for Last 24 Hours 12/28/18 12/29/18 12/30/18 23:59 23:59 23:59 Intake Total 1840 / 1840 5415 / 5415 606 / 606 Output Total 930 / 930 3190 / 3190 610 / 610 Balance 910 / 910 2225 / 2225 -4 / -4 General: Alert, Oriented x3, Cooperative HEENT: Atraumatic, PERRLA, EOMI, Normocephalic Neck: Supple, No JVD, Negative Carotid Bruits Lungs: Clear to auscultation, No rhonchi, No wheeze, No rales, Diminished Cardiovascular: Regular rate, Regular Rhythm, Normal S1, Normal S2, No murmurs Abdomen: Bowel Sounds Present, Soft, Non Tender Extremities: No edema, Capillary Refill Less than 3 Seconds Skin: No rashes, No breakdown Musculoskeletal: Arthritic Changes, Tenderness, - - Left BKA stump dressing is dry. Wound VAC placed.. Lymphatic: No Cervical, Supraclavicular, or Inguinal Adenopathy Neurological: Cranial nerves II-XII grossly intact, Deep Tendon Reflexes 2+/4 and Symmetrical, Neuro grossly intact Psych/Mental Status: Normal Affect, Appropriate Microbiology Past 72 Hours 12/28/18 Unknown Bone - Leg, Right Gram Stain - Final 12/28/18 Unknown Bone - Leg, Right Wound Culture - Preliminary No growth-Final to follow 12/28/18 Unknown Bone - Leg, Right Anaerobic Culture - Preliminary No growth in 48 hours. 12/28/18 Unknown Tissue - Leg, Right Gram Stain - Final 12/28/18 Unknown Tissue - Leg, Right Wound Culture - Preliminary No growth-Final to follow 12/28/18 Unknown Tissue - Leg, Right Anaerobic Culture - Preliminary No growth in 48 hours. Laboratory Results 12/29/18 16:44: POC Glucose 166 H 12/29/18 21:44: POC Glucose 121 H 12/30/18 06:28: POC Glucose 106 12/30/18 07:18: Vancomycin Trough 12.5 12/30/18 07:18: WBC 6.8, RBC 3.83 L, Hgb 11.1 L, Hct 35.0 L, MCV 91.4, MCH 29.0, MCHC 31.7 L, RDW 15.6 H, RDW Differential 51.8 H, Plt Count 217, MPV 10.3 12/30/18 07:18: Sodium 141, Potassium 3.6, Chloride 108 H, Carbon Dioxide 27.0, Anion Gap 6, BUN 7, Creatinine 0.55, Estim Creat Clear Calc 128.93, Est GFR (MDRD) Af Amer 152, Est GFR (MDRD) Non-Af 126, BUN/Creatinine Ratio 12.7, Glucose 109 H, Calcium 7.9 L 12/30/18 11:18: POC Glucose 207 H Current Medications Acetaminophen (Tylenol) 500 mg PO Q6H PRN PRN PRN Reason: PAIN Atorvastatin Calcium (Lipitor) 40 mg PO DAILY [facility] Last Admin: 12/30/18 11:29 Dose: 40 mg Baclofen (Lioresal) 10 mg PO TID [facility] Last Admin: 12/30/18 13:21 Dose: 10 mg Buspirone HCl (Buspar) 10 mg PO TID [facility] Last Admin: 12/30/18 13:21 Dose: 10 mg Clonidine (Catapres) 0.1 mg PO QHS [facility] Last Admin: 12/29/18 21:47 Dose: 0.1 mg Clopidogrel Bisulfate (Plavix) 75 mg PO DAILY [facility] Last Admin: 12/30/18 11:29 Dose: 75 mg Diazepam (Valium) 5 mg PO TID PRN PRN PRN Reason: SPASMS Last Admin: 12/29/18 07:42 Dose: 5 mg Docusate Sodium (Colace) 100 mg PO BID [facility] Last Admin: 12/30/18 11:05 Dose: 100 mg Duloxetine HCl (Cymbalta) 60 mg PO BID [facility] Last Admin: 12/30/18 11:25 Dose: 60 mg Enoxaparin Sodium (Lovenox) 30 mg SC DAILY@0600 [facility] Last Admin: 12/30/18 06:34 Dose: 30 mg Famotidine (Pepcid) 20 mg PO BID [facility] Last Admin: 12/30/18 11:29 Dose: 20 mg Hydromorphone HCl (Dilaudid Inj) 2 mg IV Q3H PRN PRN PRN Reason: SEVERE PAIN (6-10/10) Last Admin: 12/30/18 02:40 Dose: 2 mg Metronidazole (Flagyl) 500 mg in 100 mls @ 100 mls/hr IV Q8 [facility] Last Admin: 12/30/18 13:20 Dose: 100 mls/hr Lactated Ringer's () 1,000 mls @ 60 mls/hr IV .[id number] [facility] Last Admin: 12/29/18 13:42 Dose: 60 mls/hr Vancomycin IV Pharmacy to Dose (1 ea/ Sodium Chloride) 500 mls @ 250 mls/hr IV X1 PRN; Protocol PRN Reason: Rx to Dose Vancomycin HCl 1,750 mg/ (Sodium Chloride) 535 mls @ 250 mls/hr IV Q12H [facility] Last Admin: 12/30/18 08:05 Dose: 250 mls/hr Insulin Glargine (Lantus (Bkc)) 50 units SC QHS [facility] Last Admin: 12/29/18 21:47 Dose: 50 units Insulin Human Lispro (Humalog Kwikpen (Bkc)) 12 unit SC TIDAC [facility] Last Admin: 12/30/18 13:15 Dose: 12 units Insulin Human Lispro (Humalog Kwikpen (Bkc)) 0 unit SC ACHS [facility]; Protocol Last Admin: 12/30/18 13:16 Dose: 2 units Loratadine (Claritin) 10 mg PO DAILY [facility] Last Admin: 12/30/18 11:25 Dose: 10 mg Non-Formulary Medication (Dulaglutide [Trulicity]) 1.5 mg SC QWEEK [facility] Nutritional Formula (James - [place] Flavor) 1 packet PO BIDCM [facility] Last Admin: 12/30/18 08:05 Dose: Not Given Ondansetron HCl (Zofran) 4 mg IV Q6H PRN PRN PRN Reason: NAUSEA Oxycodone HCl (Oxyir) 10 mg PO Q4H PRN PRN PRN Reason: SEVERE PAIN (6-10/10) Last Admin: 12/30/18 11:25 Dose: 10 mg Pantoprazole Sodium (Protonix) 40 mg PO DAILY [facility] Last Admin: 12/30/18 11:27 Dose: 40 mg Pregabalin (Lyrica) 100 mg PO TID [facility] Last Admin: 12/30/18 13:21 Dose: 100 mg Promethazine HCl (Phenergan Tablet) 25 mg PO Q4H PRN PRN PRN Reason: NAUSEA/VOMITING Sodium Chloride () 5 - 15 ml IV UD PRN PRN Reason: SALINE FLUSH Last Admin: 12/29/18 13:47 Dose: 10 ml Medical Necessity - Tobacco Use Smoking Status: Current every day smoker Tobacco Use: Cigarettes Assessment/Plan All Active Problems (Last Reviewed 11/16/18 @ 09:55 by Alma Delia Borrego) Skin ulcer of abdomen (Acute) Vulvovaginal candidiasis (Acute) Type 2 diabetes mellitus with other skin ulcer (Acute) Skin flap infection (Acute) Osteomyelitis (Acute) The patient is a 48 y/o F w/ PMHx of obesity, Anxiety and Depression, Diabetes mellitus type II with chronic polyneuropathy, GERD, Raynaud's disease, peripheral arterial disease with history of thrombosis in bilateral femoral artery was admitted on 12/28/18 w/ history of ongoing pain to the right BKA stump with fluid collection in the anterior aspect for planned right BKA stump revision. The patient had Surgical incision, drainage and excisional debridement of infected seroma anterior to right BKA stump. Patient had partial ostectomy tibia for osteomyelitis. Surgery was done on 12/28/2018 1. Left BKA stump pain: Patient had above-mentioned procedure on 12/28/2018 for clinical suspicion of osteomyelitis. The patient had recent MRI 11/25 with no osteo, however there was a rim enhancing fluid collection next to the surgical site 2.2x0.6x1.4cm. No fever/leukocytosis. Wound vac neck is placed on 12/29/2017. On Vanc/flagyl. Hx MRSA, MSSE infections. Surgical site is wrapped with Javier wrap bandage. CARMEN drain present with minimal 10 mL serous fluid. -BKA originally was 4 years ago -Follow surgical cultures. Preliminary Gram stain of tissue culture does not show any organism growth for 48 hours. Patient complain of significant pain over surgical site. Pain control. PT and OT. Patient had Jackson catheter on 12/26/2018. Once pain is controlled and patient is more well, can remove Jackson catheter. Patient is on vancomycin and Flagyl. 2. DMt2 - continue SSI, lantus, mealtime insulin. titrate to response. last a1c 10.9 on 11/24. Blood sugar is controlled. 3. 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 PVD - on plavix 5. Nicotine abuse - cessation, will complicate wound healing 6. Anxiety/Depression - cymbalta, valium 7. Chronic RLE and back pain - baclofen, lyrica, cymbalta 8. GERD - on ppi DVT ppx: lovenox Active Medications Acetaminophen (Tylenol) 500 mg PO Q6H PRN PRN PRN Reason: PAIN Atorvastatin Calcium (Lipitor) 40 mg PO DAILY [facility] Last Admin: 12/30/18 11:29 Dose: 40 mg Baclofen (Lioresal) 10 mg PO TID [facility] Last Admin: 12/30/18 13:21 Dose: 10 mg Buspirone HCl (Buspar) 10 mg PO TID [facility] Last Admin: 12/30/18 13:21 Dose: 10 mg Clonidine (Catapres) 0.1 mg PO QHS [facility] Last Admin: 12/29/18 21:47 Dose: 0.1 mg Clopidogrel Bisulfate (Plavix) 75 mg PO DAILY [facility] Last Admin: 12/30/18 11:29 Dose: 75 mg Diazepam (Valium) 5 mg PO TID PRN PRN PRN Reason: SPASMS Last Admin: 12/29/18 07:42 Dose: 5 mg Docusate Sodium (Colace) 100 mg PO BID [facility] Last Admin: 12/30/18 11:05 Dose: 100 mg Duloxetine HCl (Cymbalta) 60 mg PO BID [facility] Last Admin: 12/30/18 11:25 Dose: 60 mg Enoxaparin Sodium (Lovenox) 30 mg SC DAILY@0600 [facility] Last Admin: 12/30/18 06:34 Dose: 30 mg Famotidine (Pepcid) 20 mg PO BID [facility] Last Admin: 12/30/18 11:29 Dose: 20 mg Hydromorphone HCl (Dilaudid Inj) 2 mg IV Q3H PRN PRN PRN Reason: SEVERE PAIN (6-10) Last Admin: 12/30/18 02:40 Dose: 2 mg Metronidazole (Flagyl) 500 mg in 100 mls @ 100 mls/hr IV Q8 [facility] Last Admin: 12/30/18 13:20 Dose: 100 mls/hr Lactated Ringer's () 1,000 mls @ 60 mls/hr IV .[id number] [facility] Last Admin: 12/29/18 13:42 Dose: 60 mls/hr Vancomycin IV Pharmacy to Dose (1 ea/ Sodium Chloride) 500 mls @ 250 mls/hr IV X1 PRN; Protocol PRN Reason: Rx to Dose Vancomycin HCl 1,750 mg/ (Sodium Chloride) 535 mls @ 250 mls/hr IV Q12H [facility] Last Admin: 12/30/18 08:05 Dose: 250 mls/hr Insulin Glargine (Lantus (Bkc)) 50 units SC QHS [facility] Last Admin: 12/29/18 21:47 Dose: 50 units Insulin Human Lispro (Humalog Kwikpen (Bkc)) 12 unit SC TIDAC [facility] Last Admin: 12/30/18 13:15 Dose: 12 units Insulin Human Lispro (Humalog Kwikpen (Bkc)) 0 unit SC ACHS [facility]; Protocol Last Admin: 12/30/18 13:16 Dose: 2 units Loratadine (Claritin) 10 mg PO DAILY [facility] Last Admin: 12/30/18 11:25 Dose: 10 mg Non-Formulary Medication (Dulaglutide [Trulicity]) 1.5 mg SC QWEEK [facility] Nutritional Formula (James - [place] Flavor) 1 packet PO BIDCM [facility] Last Admin: 12/30/18 08:05 Dose: Not Given Ondansetron HCl (Zofran) 4 mg IV Q6H PRN PRN PRN Reason: NAUSEA Oxycodone HCl (Oxyir) 10 mg PO Q4H PRN PRN PRN Reason: SEVERE PAIN (6-10/10) Last Admin: 12/30/18 11:25 Dose: 10 mg Pantoprazole Sodium (Protonix) 40 mg PO DAILY [facility] Last Admin: 12/30/18 11:27 Dose: 40 mg Pregabalin (Lyrica) 100 mg PO TID [facility] Last Admin: 12/30/18 13:21 Dose: 100 mg Promethazine HCl (Phenergan Tablet) 25 mg PO Q4H PRN PRN PRN Reason: NAUSEA/VOMITING Sodium Chloride () 5 - 15 ml IV UD PRN PRN Reason: SALINE FLUSH Last Admin: 12/29/18 13:47 Dose: 10 ml Code Visit Inpatient E&M: [id number] Subs Hosp L2
--- NOTE | 2018-12-30 14:47 | PN_ITS ---
Subjective: Patient had low-grade temperature T-max 99.9 Fahrenheit. Otherwise stable blood pressure 111/54. She is not much pain today. Vitals/I&O's: Vital Signs Temp Pulse Resp BP Pulse Ox 99.9 F H 98 18 111/54 L 95 12/30/18 08:11 12/30/18 08:11 12/30/18 08:11 12/30/18 11:05 12/30/18 08:11 Oxygen Flow Rate (L/min) 2 Oxygen Delivery Method Nasal Cannula Weight: 219 lb 5.759 oz Body Mass Index (BMI) 33.3 Finger Stick Blood Glucose 223 Intake and Output for Last 24 Hours 12/28/18 12/29/18 12/30/18 23:59 23:59 23:59 Intake Total 1840 / 1840 5415 / 5415 606 / 606 Output Total 930 / 930 3190 / 3190 610 / 610 Balance 910 / 910 2225 / 2225 -4 / -4 General: Alert, Oriented x3, Cooperative HEENT: Atraumatic, PERRLA, EOMI, Normocephalic Neck: Supple, No JVD, Negative Carotid Bruits Lungs: Clear to auscultation, No rhonchi, No wheeze, No rales, Diminished Cardiovascular: Regular rate, Regular Rhythm, Normal S1, Normal S2, No murmurs Abdomen: Bowel Sounds Present, Soft, Non Tender Extremities: No edema, Capillary Refill Less than 3 Seconds Skin: No rashes, No breakdown Musculoskeletal: Arthritic Changes, Tenderness, - - Left BKA stump dressing is dry. Wound VAC placed.. Lymphatic: No Cervical, Supraclavicular, or Inguinal Adenopathy Neurological: Cranial nerves II-XII grossly intact, Deep Tendon Reflexes 2+/4 and Symmetrical, Neuro grossly intact Psych/Mental Status: Normal Affect, Appropriate Microbiology Past 72 Hours 12/28/18 Unknown Bone - Leg, Right Gram Stain - Final 12/28/18 Unknown Bone - Leg, Right Wound Culture - Preliminary No growth-Final to follow 12/28/18 Unknown Bone - Leg, Right Anaerobic Culture - Preliminary No growth in 48 hours. 12/28/18 Unknown Tissue - Leg, Right Gram Stain - Final 12/28/18 Unknown Tissue - Leg, Right Wound Culture - Preliminary No growth-Final to follow 12/28/18 Unknown Tissue - Leg, Right Anaerobic Culture - Preliminary No growth in 48 hours. Laboratory Results 12/29/18 16:44: POC Glucose 166 H 12/29/18 21:44: POC Glucose 121 H 12/30/18 06:28: POC Glucose 106 12/30/18 07:18: Vancomycin Trough 12.5 12/30/18 07:18: WBC 6.8, RBC 3.83 L, Hgb 11.1 L, Hct 35.0 L, MCV 91.4, MCH 29.0, MCHC 31.7 L, RDW 15.6 H, RDW Differential 51.8 H, Plt Count 217, MPV 10.3 12/30/18 07:18: Sodium 141, Potassium 3.6, Chloride 108 H, Carbon Dioxide 27.0, Anion Gap 6, BUN 7, Creatinine 0.55, Estim Creat Clear Calc 128.93, Est GFR (MDRD) Af Amer 152, Est GFR (MDRD) Non-Af 126, BUN/Creatinine Ratio 12.7, Glucose 109 H, Calcium 7.9 L 12/30/18 11:18: POC Glucose 207 H Current Medications Acetaminophen (Tylenol) 500 mg PO Q6H PRN PRN PRN Reason: PAIN Atorvastatin Calcium (Lipitor) 40 mg PO DAILY [facility] Last Admin: 12/30/18 11:29 Dose: 40 mg Baclofen (Lioresal) 10 mg PO TID [facility] Last Admin: 12/30/18 13:21 Dose: 10 mg Buspirone HCl (Buspar) 10 mg PO TID [facility] Last Admin: 12/30/18 13:21 Dose: 10 mg Clonidine (Catapres) 0.1 mg PO QHS [facility] Last Admin: 12/29/18 21:47 Dose: 0.1 mg Clopidogrel Bisulfate (Plavix) 75 mg PO DAILY [facility] Last Admin: 12/30/18 11:29 Dose: 75 mg Diazepam (Valium) 5 mg PO TID PRN PRN PRN Reason: SPASMS Last Admin: 12/29/18 07:42 Dose: 5 mg Docusate Sodium (Colace) 100 mg PO BID [facility] Last Admin: 12/30/18 11:05 Dose: 100 mg Duloxetine HCl (Cymbalta) 60 mg PO BID [facility] Last Admin: 12/30/18 11:25 Dose: 60 mg Enoxaparin Sodium (Lovenox) 30 mg SC DAILY@0600 [facility] Last Admin: 12/30/18 06:34 Dose: 30 mg Famotidine (Pepcid) 20 mg PO BID [facility] Last Admin: 12/30/18 11:29 Dose: 20 mg Hydromorphone HCl (Dilaudid Inj) 2 mg IV Q3H PRN PRN PRN Reason: SEVERE PAIN (6-10/10) Last Admin: 12/30/18 02:40 Dose: 2 mg Metronidazole (Flagyl) 500 mg in 100 mls @ 100 mls/hr IV Q8 [facility] Last Admin: 12/30/18 13:20 Dose: 100 mls/hr Lactated Ringer's () 1,000 mls @ 60 mls/hr IV .[id number] [facility] Last Admin: 12/29/18 13:42 Dose: 60 mls/hr Vancomycin IV Pharmacy to Dose (1 ea/ Sodium Chloride) 500 mls @ 250 mls/hr IV X1 PRN; Protocol PRN Reason: Rx to Dose Vancomycin HCl 1,750 mg/ (Sodium Chloride) 535 mls @ 250 mls/hr IV Q12H [facility] Last Admin: 12/30/18 08:05 Dose: 250 mls/hr Insulin Glargine (Lantus (Bkc)) 50 units SC QHS [facility] Last Admin: 12/29/18 21:47 Dose: 50 units Insulin Human Lispro (Humalog Kwikpen (Bkc)) 12 unit SC TIDAC [facility] Last Admin: 12/30/18 13:15 Dose: 12 units Insulin Human Lispro (Humalog Kwikpen (Bkc)) 0 unit SC ACHS [facility]; Protocol Last Admin: 12/30/18 13:16 Dose: 2 units Loratadine (Claritin) 10 mg PO DAILY [facility] Last Admin: 12/30/18 11:25 Dose: 10 mg Non-Formulary Medication (Dulaglutide [Trulicity]) 1.5 mg SC QWEEK [facility] Nutritional Formula (James - [place] Flavor) 1 packet PO BIDCM [facility] Last Admin: 12/30/18 08:05 Dose: Not Given Ondansetron HCl (Zofran) 4 mg IV Q6H PRN PRN PRN Reason: NAUSEA Oxycodone HCl (Oxyir) 10 mg PO Q4H PRN PRN PRN Reason: SEVERE PAIN (6-10/10) Last Admin: 12/30/18 11:25 Dose: 10 mg Pantoprazole Sodium (Protonix) 40 mg PO DAILY [facility] Last Admin: 12/30/18 11:27 Dose: 40 mg Pregabalin (Lyrica) 100 mg PO TID [facility] Last Admin: 12/30/18 13:21 Dose: 100 mg Promethazine HCl (Phenergan Tablet) 25 mg PO Q4H PRN PRN PRN Reason: NAUSEA/VOMITING Sodium Chloride () 5 - 15 ml IV UD PRN PRN Reason: SALINE FLUSH Last Admin: 12/29/18 13:47 Dose: 10 ml Medical Necessity - Tobacco Use Smoking Status: Current every day smoker Tobacco Use: Cigarettes Assessment/Plan All Active Problems (Last Reviewed 11/16/18 @ 09:55 by Alma Delia Borrego) Skin ulcer of abdomen (Acute) Vulvovaginal candidiasis (Acute) Type 2 diabetes mellitus with other skin ulcer (Acute) Skin flap infection (Acute) Osteomyelitis (Acute) The patient is a 48 y/o F w/ PMHx of obesity, Anxiety and Depression, Diabetes mellitus type II with chronic polyneuropathy, GERD, Raynaud's disease, peripheral arterial disease with history of thrombosis in bilateral femoral artery was admitted on 12/28/18 w/ history of ongoing pain to the right BKA stump with fluid collection in the anterior aspect for planned right BKA stump revision. The patient had Surgical incision, drainage and excisional debridement of infected seroma anterior to right BKA stump. Patient had partial ostectomy tibia for osteomyelitis. Surgery was done on 12/28/2018 1. Left BKA stump pain: Patient had above-mentioned procedure on 12/28/2018 for clinical suspicion of osteomyelitis. The patient had recent MRI 11/25 with no osteo, however there was a rim enhancing fluid collection next to the surgical site 2.2x0.6x1.4cm. No fever/leukocytosis. Wound vac neck is placed on 8. On Vanc/flagyl. Hx MRSA, MSSE infections. Surgical site is wrapped with Javier wrap bandage. CARMEN drain present with minimal 10 mL serous fluid. -BKA originally was 4 years ago -Follow surgical cultures. Preliminary Gram stain of tissue culture does not show any organism growth for 48 hours. Patient complain of significant pain over surgical site. Pain control. PT and OT. Patient had Jackson catheter on 12/26/2018. Once pain is controlled and patient is more well, can remove Jackson catheter. Patient is on vancomycin and Flagyl. 2. DMt2 - continue SSI, lantus, mealtime insulin. titrate to response. last a1c 10.9 on 11/24. Blood sugar is controlled. 3. 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 PVD - on plavix 5. Nicotine abuse - cessation, will complicate wound healing 6. Anxiety/Depression - cymbalta, valium 7. Chronic RLE and back pain - baclofen, lyrica, cymbalta 8. GERD - on ppi DVT ppx: lovenox Active Medications Acetaminophen (Tylenol) 500 mg PO Q6H PRN PRN PRN Reason: PAIN Atorvastatin Calcium (Lipitor) 40 mg PO DAILY [facility] Last Admin: 12/30/18 11:29 Dose: 40 mg Baclofen (Lioresal) 10 mg PO TID [facility] Last Admin: 12/30/18 13:21 Dose: 10 mg Buspirone HCl (Buspar) 10 mg PO TID [facility] Last Admin: 12/30/18 13:21 Dose: 10 mg Clonidine (Catapres) 0.1 mg PO QHS [facility] Last Admin: 12/29/18 21:47 Dose: 0.1 mg Clopidogrel Bisulfate (Plavix) 75 mg PO DAILY [facility] Last Admin: 12/30/18 11:29 Dose: 75 mg Diazepam (Valium) 5 mg PO TID PRN PRN PRN Reason: SPASMS Last Admin: 12/29/18 07:42 Dose: 5 mg Docusate Sodium (Colace) 100 mg PO BID [facility] Last Admin: 12/30/18 11:05 Dose: 100 mg Duloxetine HCl (Cymbalta) 60 mg PO BID [facility] Last Admin: 12/30/18 11:25 Dose: 60 mg Enoxaparin Sodium (Lovenox) 30 mg SC DAILY@0600 [facility] Last Admin: 12/30/18 06:34 Dose: 30 mg Famotidine (Pepcid) 20 mg PO BID [facility] Last Admin: 12/30/18 11:29 Dose: 20 mg Hydromorphone HCl (Dilaudid Inj) 2 mg IV Q3H PRN PRN PRN Reason: SEVERE PAIN (6-10) Last Admin: 12/30/18 02:40 Dose: 2 mg Metronidazole (Flagyl) 500 mg in 100 mls @ 100 mls/hr IV Q8 [facility] Last Admin: 12/30/18 13:20 Dose: 100 mls/hr Lactated Ringer's () 1,000 mls @ 60 mls/hr IV .[id number] [facility] Last Admin: 12/29/18 13:42 Dose: 60 mls/hr Vancomycin IV Pharmacy to Dose (1 ea/ Sodium Chloride) 500 mls @ 250 mls/hr IV X1 PRN; Protocol PRN Reason: Rx to Dose Vancomycin HCl 1,750 mg/ (Sodium Chloride) 535 mls @ 250 mls/hr IV Q12H [facility] Last Admin: 12/30/18 08:05 Dose: 250 mls/hr Insulin Glargine (Lantus (Bkc)) 50 units SC QHS [facility] Last Admin: 12/29/18 21:47 Dose: 50 units Insulin Human Lispro (Humalog Kwikpen (Bkc)) 12 unit SC TIDAC [facility] Last Admin: 12/30/18 13:15 Dose: 12 units Insulin Human Lispro (Humalog Kwikpen (Bkc)) 0 unit SC ACHS [facility]; Protocol Last Admin: 12/30/18 13:16 Dose: 2 units Loratadine (Claritin) 10 mg PO DAILY [facility] Last Admin: 12/30/18 11:25 Dose: 10 mg Non-Formulary Medication (Dulaglutide [Trulicity]) 1.5 mg SC QWEEK [facility] Nutritional Formula (James - [place] Flavor) 1 packet PO BIDCM [facility] Last Admin: 12/30/18 08:05 Dose: Not Given Ondansetron HCl (Zofran) 4 mg IV Q6H PRN PRN PRN Reason: NAUSEA Oxycodone HCl (Oxyir) 10 mg PO Q4H PRN PRN PRN Reason: SEVERE PAIN (6-1010) Last Admin: 12/30/18 11:25 Dose: 10 mg Pantoprazole Sodium (Protonix) 40 mg PO DAILY [facility] Last Admin: 12/30/18 11:27 Dose: 40 mg Pregabalin (Lyrica) 100 mg PO TID [facility] Last Admin: 12/30/18 13:21 Dose: 100 mg Promethazine HCl (Phenergan Tablet) 25 mg PO Q4H PRN PRN PRN Reason: NAUSEA/VOMITING Sodium Chloride () 5 - 15 ml IV UD PRN PRN Reason: SALINE FLUSH Last Admin: 12/29/18 13:47 Dose: 10 ml Code Visit Inpatient E&M: [id number] Subs Hosp L2
[2018-12-30] MEDS: 0.9% NaCl Peripheral Flush Adult/Peds IV (15:55)
[2018-12-30 16:16] LABS: Bedside Glucose 92 mg/dL (70-110)
--- NOTE | 2018-12-30 18:27 | PCM.PN.SRG ---
Subjective: Postop #2 Patient is resting comfortably. She states the pain is a little less. - Physical Exam General: Alert, Oriented x3 HEENT: PERRLA, EOMI Oral: Moist Mucosa Neck: Supple Abdomen: Soft, Non-Distended Skin: Ulcer/ Wound - anterior aspect wound right BKA stump is stable. VAC in place. Minimal drainage in the canister., Incision - right BKA stump incision is dry and intact. Neurological: Cranial nerves II-XII grossly intact Psych/Mental Status: Normal Affect, Appropriate Vital Signs Temp Pulse Resp BP Pulse Ox 99.9 F H 98 18 111/54 L 95 12/30/18 08:11 12/30/18 08:11 12/30/18 08:11 12/30/18 11:05 12/30/18 08:11 Oxygen Flow Rate (L/min) 2 Oxygen Delivery Method Nasal Cannula Weight: 219 lb 5.759 oz Body Mass Index (BMI) 33.3 Finger Stick Blood Glucose 223 Intake and Output for Last 24 Hours 12/28/18 12/29/18 12/30/18 23:59 23:59 23:59 Intake Total 1840 / 1840 5415 / 5415 606 / 606 Output Total 930 / 930 3190 / 3190 610 / 610 Balance 910 / 910 2225 / 2225 -4 / -4 Drainage 40 ml yesterday, 40 ml today. Microbiology Past 72 Hours 12/28/18 Unknown Gram Stain - Final Bone - Leg, Right Wound Culture - Preliminary No growth-Final to follow Anaerobic Culture - Preliminary No growth in 48 hours. 12/28/18 Unknown Gram Stain - Final Tissue - Leg, Right Wound Culture - Preliminary No growth-Final to follow Anaerobic Culture - Preliminary No growth in 48 hours. Pathology - pending. Laboratory Tests Past 24 Hrs 12/30/18 12/30/18 12/30/18 07:18 07:18 07:18 WBC 6.8 RBC 3.83 L Hgb 11.1 L Hct 35.0 L MCV 91.4 MCH 29.0 MCHC 31.7 L RDW 15.6 H RDW Differential 51.8 H Plt Count 217 MPV 10.3 Sodium 141 Potassium 3.6 Chloride 108 H Carbon Dioxide 27.0 Anion Gap 6 BUN 7 Creatinine 0.55 Estim Creat Clear Calc 128.93 Est GFR (MDRD) Af Amer 152 Est GFR (MDRD) Non-Af 126 BUN/Creatinine Ratio 12.7 Glucose 109 H Calcium 7.9 L Vancomycin Trough 12.5 POC Glucose 12/30/18 12/30/18 12/30/18 16:10 11:18 06:28 POC Glucose 92 207 H 106 12/29/18 21:44 POC Glucose 121 H Medical Necessity - Tobacco Use Smoking Status: Current every day smoker Tobacco Use: Cigarettes Assessment/Plan All Active Problems (Last Reviewed 11/16/18 @ 09:55 by Alma Delia Borrego) Skin ulcer of abdomen (Acute) Vulvovaginal candidiasis (Acute) Type 2 diabetes mellitus with other skin ulcer (Acute) Skin flap infection (Acute) Osteomyelitis (Acute) 1. Painful right BKA stump. 2. 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 3. Diabetes mellitus. 4. PVD. 5. Smoker. 6. History of necrotizing infection. 7. History of diverting colostomy. 8. 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 Patient has complaints of pain in the right BKA stump. She still needs IV analgesia, but is getting less. Wound anterior aspect is stable. VAC in place. Minimal drainage in the canister. Operative culture negative thus far. Continue Vancomycin and Flagyl. Pathology is pending. Prealbumin was 15.0. Encourage nutritional supplementation with protein to help the healing process. Will wean to po analgesia in preparation for discharge. Anticipate discharge tomorrow. After discharge, [facility]. Encouraged patient to stop smoking as it may have deleterious effects on wound healing.
[2018-12-30] MEDS: Lactated Ringers 1,000 ML 60 ML IV (19:45)
[2018-12-30 20:56] VITALS: BP 123/71; PULSE 85; RESP 18; TEMP 37; O2SAT 95
[2018-12-30] MEDS: cloNIDine HCl 0.1 MG Tablet PO (21:20)
[2018-12-30 23:20] LABS: Bedside Glucose 196 mg/dL (70-110)
[2018-12-31 02:52] VITALS: BP 110/63; PULSE 79; RESP 18; TEMP 36.6; O2SAT 92
[2018-12-31] MEDS: oxyCODONE 5 MG Tablet 10 MG PO ×3 (03:01→12:13)
[2018-12-31] MEDS: Pregabalin 50 MG Capsule 100 MG PO ×2 (05:54→14:35)
[2018-12-31] MEDS: Baclofen 10 MG Tablet PO ×2 (05:55→14:23)
[2018-12-31] MEDS: busPIRone 5 MG Tablet 10 MG PO ×2 (05:55→14:23)
[2018-12-31] MEDS: Enoxaparin 30 MG/0.3 ML Syringe SC (05:58)
[2018-12-31 06:25] LABS: Mean Corp Hgb Conc 32.4 g/gl (32-36); Mean Corpuscular Hgb 29.6 pg (27.0-32.0); Mean Corpuscular Volume 91.4 fL (81-99); Mean Platelet Vol. 10.5 fl (6.2-12.0); Platelet Count 210 K/mm3 (150-450); RBC Distribution Width CV 15.4 % (11.6-14.6); RBC Distribution Width SD 50.2 fl (35.1-43.9); Red Blood Count 3.72 M/mm3 (4.2-5.4); White Blood Count 4.1 K/mm3 (4.4-11.0)
[2018-12-31 06:27] LABS: Scan Indicated on CBC? Y/N NO
[2018-12-31 06:42] LABS: Anion Gap 4 (5-15); BUN 6 mg/dL (7-18); BUN/Creat Ratio 9.6 RATIO (10-20); Calcium,Total 7.9 mg/dL (8.5-10.1); Chloride 113 mmol/L (98-107); Creatinine, Serum 0.63 mg/dL (0.55-1.02); EST Glomerular Filtration Rate 109 mL/min (>60); Est Glom Filt Rate - Afr Amer 132 mL/min (>60); Estimated Creatinine Clearance 112.56 ml/min; Glucose 134 mg/dL (74-106); Potassium 3.4 mmol/L (3.5-5.1); Sodium Level 144 mmol/L (136-145)
[2018-12-31 07:11] LABS: Bedside Glucose 127 mg/dL (70-110)
[2018-12-31 07:48] VITALS: O2SAT 90
[2018-12-31] MEDS: Insulin Lispro 100 UNIT/ML INSULN.PEN 12 UNIT SC ×2 (08:11→12:05)
[2018-12-31] MEDS: Loratadine 10 MG Tablet PO (08:18)
[2018-12-31] MEDS: Pantoprazole Sodium 40 MG Tablet PO (08:18)
[2018-12-31] MEDS: Famotidine 20 MG Tablet PO (08:18)
[2018-12-31] MEDS: Clopidogrel Bisulfate 75 MG Tablet PO (08:18)
[2018-12-31] MEDS: Atorvastatin Calcium 40 MG Tablet PO (08:18)
[2018-12-31] MEDS: DULoxetine Hcl 60 MG Capsule PO (08:19)
[2018-12-31] MEDS: Docusate Sodium 100 MG Capsule PO (08:19)
[2018-12-31 08:52] VITALS: BP 110/60; PULSE 80; RESP 18; TEMP 36.6; O2SAT 95
--- NOTE | 2018-12-31 09:34 | NURSING ---
Plan is for discharge home today with home health. Home VAC has been approved. dressing will be changed tomorrow with home health to get pt on a -- schedule. Good seal noted at 150mmHg low continuous suction. CARMEN drain remains in place as well.
[2018-12-31] MEDS: Insulin Lispro 100 UNIT/ML INSULN.PEN SC (12:05)
[2018-12-31 12:31] LABS: Bedside Glucose 157 mg/dL (70-110)
--- NOTE | 2018-12-31 13:57 | PCM.PN.SRG ---
Subjective: Postop #3 Patient is resting comfortably. Tolerating po analgesia. - Physical Exam General: Alert, Oriented x3 HEENT: PERRLA, EOMI Oral: Moist Mucosa Neck: Supple Abdomen: Soft, Non-Distended Skin: Ulcer/ Wound - anterior aspect wound right BKA stump is stable. VAC in place. Minimal drainage in the canister., Incision - right BKA stump incision is dry and intact. Neurological: Cranial nerves II-XII grossly intact Psych/Mental Status: Normal Affect, Appropriate Vital Signs Temp Pulse Resp BP Pulse Ox 97.9 F 80 18 110/60 95 12/31/18 08:52 12/31/18 08:52 12/31/18 08:52 12/31/18 08:52 12/31/18 08:52 Oxygen Flow Rate (L/min) 2 Oxygen Delivery Method Room Air Weight: 219 lb 5.759 oz Body Mass Index (BMI) 33.3 Finger Stick Blood Glucose 223 Intake and Output for Last 24 Hours 12/29/18 12/30/18 12/31/18 23:59 23:59 23:59 Intake Total 5415 / 5415 606 / 606 1740 / 1740 Output Total 3190 / 3190 640 / 640 2810 / 2810 Balance 2225 / 2225 -34 / -34 -1070 / -1070 Drainage 20 ml today. Microbiology Past 72 Hours 12/28/18 Unknown Gram Stain - Final Tissue - Leg, Right Wound Culture - Final No growth aerobically. Anaerobic Culture - Preliminary No growth in 48 hours. 12/28/18 Unknown Gram Stain - Final Bone - Leg, Right Wound Culture - Final No growth aerobically. Anaerobic Culture - Preliminary No growth in 48 hours. Pathology - pending. Laboratory Tests Past 24 Hrs 12/31/18 12/31/18 05:42 05:42 WBC 4.1 L RBC 3.72 L Hgb 11.0 L Hct 34.0 L MCV 91.4 MCH 29.6 MCHC 32.4 RDW 15.4 H RDW Differential 50.2 H Plt Count 210 MPV 10.5 Sodium 144 Potassium 3.4 L Chloride 113 H Carbon Dioxide 27.0 Anion Gap 4 L BUN 6 L Creatinine 0.63 Estim Creat Clear Calc 112.56 Est GFR (MDRD) Af Amer 132 Est GFR (MDRD) Non-Af 109 BUN/Creatinine Ratio 9.6 L Glucose 134 H Calcium 7.9 L POC Glucose 12/31/18 12/31/18 12/30/18 12:03 07:04 21:17 POC Glucose 157 H 127 H 196 H 12/30/18 16:10 POC Glucose 92 Medical Necessity - Tobacco Use Smoking Status: Current every day smoker Tobacco Use: Cigarettes Assessment/Plan All Active Problems (Last Reviewed 11/16/18 @ 09:55 by Alma Delia Borrego) Open wound of right lower leg with complication (Acute) Skin ulcer of abdomen (Acute) Vulvovaginal candidiasis (Acute) Type 2 diabetes mellitus with other skin ulcer (Acute) Skin flap infection (Acute) Osteomyelitis (Acute) 1. Painful right BKA stump. 2. 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 3. Diabetes mellitus. 4. PVD. 5. Smoker. 6. History of necrotizing infection. 7. History of diverting colostomy. 8. 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 Patient has complaints of pain in the right BKA stump and is tolerating po analgesia. Wound anterior aspect is stable. VAC in place. Minimal drainage in the canister. Operative culture negative. Will stop the Vancomycin. Will send home on Bactrim and Flagyl. Pathology is pending. Prealbumin was 15.0. Encourage nutritional supplementation with protein to help the healing process. Discharge home today. [facility]up [facility] 01/11/19 at 800am. Wrote scripts for Bactrim and Flagyl. Wrote scripts for OxyIR for pain (50 tabs) and for Valium for spasm (30 tabs). Wrote scripts for Phenergan for nausea (30 tabs) and a refill and for Colace for constipation (60 tabs). Encouraged patient to stop smoking as it may have deleterious effects on wound healing.
--- NOTE | 2018-12-31 14:08 | PCM.DC ---
You will use the following diet at home:: Calorie/Carbohydrate Controlled (specify 1200, 1400, etc), Other - encourage nutritional supplementation with protein to help the healing process. Discharge Activity: May Shower - after the drain is removed., - - keep right amputation stump elevated when sitting. May shower in (days): 7 - after the drain is removed. May resume sexual activity in: No Restrictions Keep extremity elevated above heart level: Right Leg - right amputation stump when sitting. ok to do knee range of motion. Call your doctor if your incision/area has: Continuous Slow Oozing, Sudden Increased Bleeding, Increased Pain/ Swelling, Increased Redness, Foul Smelling Discharge, Swelling at the incision site Call your doctor if you observe: Fever of 101 or Higher, Coldness, Increased Pain, Shortness of breath, Chest pain, Calf discomfort, Uncontrolled pain Suture Line Care: - - VAC dressing three times per week at 150 mmHg continuous suction. Cleanse incision/area with: - - may get wound and incision wet in the shower after the drain is removed and at the time of the vac dressing change. Drain: Suction - diane drain to bulb suction. empty and record output qdaily. Allergies/Adverse Reactions: Allergies fentanyl Allergy (Verified 12/25/18 15:42) Other morphine Adverse Reaction (Verified 12/25/18 15:42) Upset Stomach Medications to take at Discharge Atorvastatin Calcium [Lipitor] 40 mg PO QHS 04/26/16 Baclofen 10 mg PO TID 04/26/16 Ranitidine [Zantac] 150 mg PO BID 04/26/16 Clopidogrel Bisulfate [Plavix] 75 mg PO DAILY #30 01/30/18 Duloxetine Hcl [Cymbalta] 60 mg PO BID #60 cap 01/30/18 pantoprazole 40 mg tablet,delayed release 40 mg PO QDAY 03/04/18 insulin aspart (U-100) 100 unit/mL (3 mL) subcutaneous pen 12 unit SC TIDAC #15 ml 05/08/18 pregabalin 100 mg capsule 100 mg PO TID 07/22/18 clonidine HCl 0.1 mg tablet 0.1 mg PO QHS tab 08/24/18 hydrocodone 5 mg-acetaminophen 325 mg tablet 1 tab PO Q6H PRN 10/19/18 loratadine 10 mg capsule 10 mg PO DAILY #90 cap 10/19/18 dulaglutide 1.5 mg/0.5 mL subcutaneous pen injector 1.5 mg SC QWEEK #2 ml 10/26/18 buspirone 10 mg tablet 10 mg PO TID #90 tab 11/04/18 insulin detemir (U-100) 100 unit/mL (3 mL) subcutaneous pen 50 unit SC QHS #15 ml 11/16/18 Clopidogrel Bisulfate [Plavix] 75 mg PO DAILY tablet 12/31/18 Diazepam [Valium] 5 mg PO 4X/DAY PRN PRN #30 tab 12/31/18 Docusate Sodium [Colace] 100 mg PO BID #60 cap 12/31/18 Insulin Glargine [Lantus SoloStar Pen] 50 units SC QHS pen 12/31/18 Insulin Lispro [Humalog KwikPen] 12 unit SC TIDAC insuln.pen 12/31/18 Insulin Lispro [Humalog KwikPen] See Protocol SC ACHS insuln.pen 12/31/18 Metronidazole [Flagyl] 500 mg PO TID #21 tab 12/31/18 Oxycodone [Oxyir] 10 mg PO 4X/DAY PRN PRN 7 Days #50 tab 12/31/18 Potassium Chloride [K-Dur] 40 meq PO DAILYCM tablet 12/31/18 Smz/Tmp Ds [Bactrim Ds] 1 tab PO BID #20 tab 12/31/18 proMETHazine tablet [Phenergan tablet] 25 mg PO 4X/DAY PRN PRN #30 tab 12/31/18 The following prescriptions were given: Diazepam [Valium] 5 mg PO 4X/DAY PRN PRN #30 tab PRN Reason: Spasms Oxycodone [Oxyir] 10 mg PO 4X/DAY PRN PRN 7 Days #50 tab PRN Reason: Severe Pain (6-06/17) proMETHazine tablet [Phenergan tablet] 25 mg PO 4X/DAY PRN PRN #30 tab PRN Reason: NAUSEA/VOMITING Docusate Sodium [Colace] 100 mg PO BID #60 cap Smz/Tmp Ds [Bactrim Ds] 1 tab PO BID #20 tab Metronidazole [Flagyl] 500 mg PO TID #21 tab Primary Care Physician: Sasha Rodriguez MD [Primary Care Provider] - Test Results: Test results from this visit will be discussed in further detail at your follow-up appointment, if applicable. Please Follow Up With: Grzegorz Guadarrama MD - Lacey Hogue CNP When: friday01/21/19 at [facility] at 800am. call [phone] if any question Proposed Discharge Date: 12/31/18
--- NOTE | 2018-12-31 14:13 | DCINST_ITS ---
You will use the following diet at home:: Calorie/Carbohydrate Controlled (specify 1200, 1400, etc), Other - encourage nutritional supplementation with protein to help the healing process. Discharge Activity: May Shower - after the drain is removed., - - keep right amputation stump elevated when sitting. May shower in (days): 7 - after the drain is removed. May resume sexual activity in: No Restrictions Keep extremity elevated above heart level: Right Leg - right amputation stump when sitting. ok to do knee range of motion. Call your doctor if your incision/area has: Continuous Slow Oozing, Sudden Increased Bleeding, Increased Pain/ Swelling, Increased Redness, Foul Smelling Discharge, Swelling at the incision site Call your doctor if you observe: Fever of 101 or Higher, Coldness, Increased Pain, Shortness of breath, Chest pain, Calf discomfort, Uncontrolled pain Suture Line Care: - - VAC dressing three times per week at 150 mmHg continuous suction. Cleanse incision/area with: - - may get wound and incision wet in the shower after the drain is removed and at the time of the vac dressing change. Drain: Suction - diane drain to bulb suction. empty and record output qdaily. Allergies/Adverse Reactions: Allergies fentanyl Allergy (Verified 12/25/18 15:42) Other morphine Adverse Reaction (Verified 12/25/18 15:42) Upset Stomach Medications to take at Discharge Atorvastatin Calcium [Lipitor] 40 mg PO QHS 04/26/16 Baclofen 10 mg PO TID 04/26/16 Ranitidine [Zantac] 150 mg PO BID 04/26/16 Clopidogrel Bisulfate [Plavix] 75 mg PO DAILY #30 01/30/18 Duloxetine Hcl [Cymbalta] 60 mg PO BID #60 cap 01/30/18 pantoprazole 40 mg tablet,delayed release 40 mg PO QDAY 03/04/18 insulin aspart (U-100) 100 unit/mL (3 mL) subcutaneous pen 12 unit SC TIDAC #15 ml 05/08/18 pregabalin 100 mg capsule 100 mg PO TID 07/22/18 clonidine HCl 0.1 mg tablet 0.1 mg PO QHS tab 08/24/18 hydrocodone 5 mg-acetaminophen 325 mg tablet 1 tab PO Q6H PRN 10/19/18 loratadine 10 mg capsule 10 mg PO DAILY #90 cap 10/19/18 dulaglutide 1.5 mg/0.5 mL subcutaneous pen injector 1.5 mg SC QWEEK #2 ml 10/26/18 buspirone 10 mg tablet 10 mg PO TID #90 tab 11/04/18 insulin detemir (U-100) 100 unit/mL (3 mL) subcutaneous pen 50 unit SC QHS #15 ml 11/16/18 Clopidogrel Bisulfate [Plavix] 75 mg PO DAILY tablet 12/31/18 Diazepam [Valium] 5 mg PO 4X/DAY PRN PRN #30 tab 12/31/18 Docusate Sodium [Colace] 100 mg PO BID #60 cap 12/31/18 Insulin Glargine [Lantus SoloStar Pen] 50 units SC QHS pen 12/31/18 Insulin Lispro [Humalog KwikPen] 12 unit SC TIDAC insuln.pen 12/31/18 Insulin Lispro [Humalog KwikPen] See Protocol SC ACHS insuln.pen 12/31/18 Metronidazole [Flagyl] 500 mg PO TID #21 tab 12/31/18 Oxycodone [Oxyir] 10 mg PO 4X/DAY PRN PRN 7 Days #50 tab 12/31/18 Potassium Chloride [K-Dur] 40 meq PO DAILYCM tablet 12/31/18 Smz/Tmp Ds [Bactrim Ds] 1 tab PO BID #20 tab 12/31/18 proMETHazine tablet [Phenergan tablet] 25 mg PO 4X/DAY PRN PRN #30 tab 12/31/18 The following prescriptions were given: Diazepam [Valium] 5 mg PO 4X/DAY PRN PRN #30 tab PRN Reason: Spasms Oxycodone [Oxyir] 10 mg PO 4X/DAY PRN PRN 7 Days #50 tab PRN Reason: Severe Pain (6-06/17) proMETHazine tablet [Phenergan tablet] 25 mg PO 4X/DAY PRN PRN #30 tab PRN Reason: NAUSEA/VOMITING Docusate Sodium [Colace] 100 mg PO BID #60 cap Smz/Tmp Ds [Bactrim Ds] 1 tab PO BID #20 tab Metronidazole [Flagyl] 500 mg PO TID #21 tab Primary Care Physician: Sasha Rodriguez MD [Primary Care Provider] - Test Results: Test results from this visit will be discussed in further detail at your follow- up appointment, if applicable. Please Follow Up With: Grzegorz Guadarrama MD - Lacey Hogue CNP When: friday01/21/19 at [facility] at 800am. call [phone] if any jennifer baird Proposed Discharge Date: 12/31/18
--- NOTE | 2018-12-31 14:18 | DS.PCM_ITS ---
Discharge Date and Diagnosis Date of Admission: 12/28/18 Date of Discharge: 12/31/18 - Primary Discharge Diagnosis Painful right BKA stump. 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 Alonso. Operations: - - 12/28/18 - 1. 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 2. Partial ostectomy tibia for osteomyelitis. 3. Complex secondary wound closure revision reconstruction. Procedures: Wound vac placement Summary of Care Provided: 48 year old woman presents with pain in her right BKA stump that has worsened over the last several months. She states she underwent the right BKA about 4 years ago. About 6 months postop she needed additional surgery with removal of scar tissue. She is also in the process of getting her prosthesis revised as well. She denies any fever. She denies any recent trauma. She denies any recent infection. She denies any drainage. She presents today for further evaluation and treatment. As a side note, patient had a necrotizing infection in [place] last year and needed a diverting colostomy. Her wounds have healed, and she is interested in a colostomy reversal. She had an xray done on 11/20/18 which showed no foreign body and no fracture seen. An MRI was done on 12/01/18 which showed no acute osteomyelitis. A fluid collection was seen anteriorly with a questionable abscess with clinical correlation. Some muscle atrophy also seen. She was taken to surgery on 12/28/18 where she underwent surgical preparation right BKA stump with incision and drainage and excisional debridement chronic infected seroma anterior aspect of stump and partial ostectomy tibia for osteomyelitis and complex secondary wound closure revision reconstruction. She tolerated the procedure well. She was afebrile during her hospital stay. She had increased pain the first couple of days that required IV analgesia. The VAC was placed the next day. The drainage has been less than 50 ml/day. The Hospitalist Group was consulted for medical management. She was treated perioperatively with Vancomycin and Flagyl. The operative culture was negative, and she was sent home on Bactrim DS and Flagyl. Also on the first postop day, her Prealbumin was 15.0. Encourage nutritional supplementation with protein to help the healing process. By the third postop day she was able to tolerate po analgesia. She was discharged on that third day in stable condition. Followup at [facility] on 01/11/19. Wrote scripts for Bactrim DS (20 tabs) and for Flagyl (21 tabs). Wrote scripts for OxyIR for pain (50 tabs) and for Valium for spasm (30 tabs). Wrote scripts for Phenergan for nausea (30 tabs) and a refill and for Colace for constipation (60 tabs). The Pathology is pending. - Physical Exam Vital Signs Temp Pulse Resp BP Pulse Ox 97.9 F 80 18 110/60 95 12/31/18 08:52 12/31/18 08:52 12/31/18 08:52 12/31/18 08:52 12/31/18 08:52 Oxygen Flow Rate (L/min) 2 Oxygen Delivery Method Room Air Weight: 219 lb 5.759 oz Body Mass Index (BMI) 33.3 Finger Stick Blood Glucose 223 Intake and Output for Last 24 Hours 12/29/18 12/30/18 12/31/18 23:59 23:59 23:59 Intake Total 5415 / 5415 606 / 606 1740 / 1740 Output Total 3190 / 3190 640 / 640 2810 / 2810 Balance 2225 / 2225 -34 / -34 -1070 / -1070 Microbiology Past 72 Hours 12/28/18 Unknown Gram Stain - Final Tissue - Leg, Right Wound Culture - Final No growth aerobically. Anaerobic Culture - Preliminary No growth in 48 hours. 12/28/18 Unknown Gram Stain - Final Bone - Leg, Right Wound Culture - Final No growth aerobically. Anaerobic Culture - Preliminary No growth in 48 hours. Laboratory Tests Past 24 Hrs 12/31/18 12/31/18 05:42 05:42 WBC 4.1 L RBC 3.72 L Hgb 11.0 L Hct 34.0 L MCV 91.4 MCH 29.6 MCHC 32.4 RDW 15.4 H RDW Differential 50.2 H Plt Count 210 MPV 10.5 Sodium 144 Potassium 3.4 L Chloride 113 H Carbon Dioxide 27.0 Anion Gap 4 L BUN 6 L Creatinine 0.63 Estim Creat Clear Calc 112.56 Est GFR (MDRD) Af Amer 132 Est GFR (MDRD) Non-Af 109 BUN/Creatinine Ratio 9.6 L Glucose 134 H Calcium 7.9 L POC Glucose 12/31/18 12/31/18 12/30/18 12:03 07:04 21:17 POC Glucose 157 H 127 H 196 H 12/30/18 16:10 POC Glucose 92 Discharge Diet: Carb Control Diet, - - encourage nutritional supplementation with protein to help the healing process. Discharge Activity: May Shower - after the drain is removed., - - keep right amputation stump elevated when sitting. May shower in (days): 7 - after the drain is removed. May resume sexual activity in: No Restrictions Keep extremity elevated above heart level: Right Leg - right amputation stump when sitting. ok to do knee range of motion. Call your doctor if your incision/area has: Continuous Slow Oozing, Sudden Increased Bleeding, Increased Pain/ Swelling, Increased Redness, Foul Smelling Discharge, Swelling at the incision site Call your doctor if you observe: Fever of 101 or Higher, Coldness, Increased Pain, Shortness of breath, Chest pain, Calf discomfort, Uncontrolled pain Suture Line Care: - - VAC dressing three times per week at 150 mmHg continuous suction. Cleanse incision/area with: - - may get wound and incision wet in the shower after the drain is removed and at the time of the vac dressing change. Drain: Suction - diane drain to bulb suction. empty and record output qdaily. Home Medications: Medications to take at Discharge Atorvastatin Calcium [Lipitor] 40 mg PO QHS 04/26/16 Baclofen 10 mg PO TID 04/26/16 Ranitidine [Zantac] 150 mg PO BID 04/26/16 Clopidogrel Bisulfate [Plavix] 75 mg PO DAILY #30 01/30/18 Duloxetine Hcl [Cymbalta] 60 mg PO BID #60 cap 01/30/18 pantoprazole 40 mg tablet,delayed release 40 mg PO QDAY 03/04/18 insulin aspart (U-100) 100 unit/mL (3 mL) subcutaneous pen 12 unit SC TIDAC #15 ml 05/08/18 pregabalin 100 mg capsule 100 mg PO TID 07/22/18 clonidine HCl 0.1 mg tablet 0.1 mg PO QHS tab 08/24/18 hydrocodone 5 mg-acetaminophen 325 mg tablet 1 tab PO Q6H PRN 10/19/18 loratadine 10 mg capsule 10 mg PO DAILY #90 cap 10/19/18 dulaglutide 1.5 mg/0.5 mL subcutaneous pen injector 1.5 mg SC QWEEK #2 ml 10/26/18 buspirone 10 mg tablet 10 mg PO TID #90 tab 11/04/18 insulin detemir (U-100) 100 unit/mL (3 mL) subcutaneous pen 50 unit SC QHS #15 ml 11/16/18 Clopidogrel Bisulfate [Plavix] 75 mg PO DAILY tablet 12/31/18 Diazepam [Valium] 5 mg PO 4X/DAY PRN PRN #30 tab 12/31/18 Docusate Sodium [Colace] 100 mg PO BID #60 cap 12/31/18 Insulin Glargine [Lantus SoloStar Pen] 50 units SC QHS pen 12/31/18 Insulin Lispro [Humalog KwikPen] 12 unit SC TIDAC insuln.pen 12/31/18 Insulin Lispro [Humalog KwikPen] See Protocol SC ACHS insuln.pen 12/31/18 Metronidazole [Flagyl] 500 mg PO TID #21 tab 12/31/18 Oxycodone [Oxyir] 10 mg PO 4X/DAY PRN PRN 7 Days #50 tab 12/31/18 Potassium Chloride [K-Dur] 40 meq PO DAILYCM tablet 12/31/18 Smz/Tmp Ds [Bactrim Ds] 1 tab PO BID #20 tab 12/31/18 proMETHazine tablet [Phenergan tablet] 25 mg PO 4X/DAY PRN PRN #30 tab 12/31/18 Following Prescrptions Were Given to Patient: Diazepam [Valium] 5 mg PO 4X/DAY PRN PRN #30 tab PRN Reason: Spasms Oxycodone [Oxyir] 10 mg PO 4X/DAY PRN PRN 7 Days #50 tab PRN Reason: Severe Pain (6-06/17) proMETHazine tablet [Phenergan tablet] 25 mg PO 4X/DAY PRN PRN #30 tab PRN Reason: NAUSEA/VOMITING Docusate Sodium [Colace] 100 mg PO BID #60 cap Smz/Tmp Ds [Bactrim Ds] 1 tab PO BID #20 tab Metronidazole [Flagyl] 500 mg PO TID #21 tab Primary Care Physician: Sasha Rodriguez MD [Primary Care Provider] - Please Follow Up With: Grzegorz Guadarrama MD - Lacey Hogue CNP When: friday01/11/19 at wound center at 800am. call [phone] if any question Disposition: Home with Home Health Minutes spent on discharge:: 35 Patient Condition:: Stable Medical Necessity - Tobacco Use Smoking Status: Current every day smoker Tobacco Use: Cigarettes Meaningful Use Info Meaningful Use Diagnoses (Choose all that apply): None applicable
[2018-12-31] MEDS: metroNIDAZOLE 500 MG Tablet PO (14:23)
[2018-12-31 14:52] VITALS: BP 112/70; PULSE 81; RESP 18; TEMP 36.6; O2SAT 95
--- NOTE | 2018-12-31 15:10 | PN_ITS ---
Subjective: The patient pain is well controlled. Hemodynamically stable. Patient is supposed to be discharged today. Discharge home with home health care. Vitals/I&O's: Vital Signs Temp Pulse Resp BP Pulse Ox 97.8 F 81 18 112/70 95 12/31/18 14:52 12/31/18 14:52 12/31/18 14:52 12/31/18 14:52 12/31/18 14:52 Oxygen Flow Rate (L/min) 2 Oxygen Delivery Method Room Air Weight: 219 lb 5.759 oz Body Mass Index (BMI) 33.3 Finger Stick Blood Glucose 223 Intake and Output for Last 24 Hours 12/29/18 12/30/18 12/31/18 23:59 23:59 23:59 Intake Total 5415 / 5415 606 / 606 1740 / 1740 Output Total 3190 / 3190 640 / 640 4220 / 4220 Balance 2225 / 2225 -34 / -34 -2480 / -2480 General: Alert, Oriented x3, Cooperative HEENT: Atraumatic, PERRLA, EOMI, Normocephalic Neck: Supple, No JVD, Negative Carotid Bruits Lungs: Clear to auscultation, No rhonchi, No wheeze, No rales, Diminished Cardiovascular: Regular rate, Regular Rhythm, Normal S1, Normal S2, No murmurs Abdomen: Bowel Sounds Present, Soft, Non Tender, Non-Distended Extremities: No edema, Capillary Refill Less than 3 Seconds Skin: No rashes, No breakdown Musculoskeletal: Arthritic Changes, Muscle Wasting, Tenderness, - - Right BKA stump with drain. Neurological: Cranial nerves II-XII grossly intact Psych/Mental Status: Normal Affect, Appropriate Microbiology Past 72 Hours 12/28/18 Unknown Tissue - Leg, Right Gram Stain - Final 12/28/18 Unknown Tissue - Leg, Right Wound Culture - Final No growth aerobically. 12/28/18 Unknown Tissue - Leg, Right Anaerobic Culture - Preliminary No growth in 48 hours. 12/28/18 Unknown Bone - Leg, Right Gram Stain - Final 12/28/18 Unknown Bone - Leg, Right Wound Culture - Final No growth aerobically. 12/28/18 Unknown Bone - Leg, Right Anaerobic Culture - Preliminary No growth in 48 hours. Laboratory Results 12/30/18 16:10: POC Glucose 92 12/30/18 21:17: POC Glucose 196 H 12/31/18 05:42: WBC 4.1 L, RBC 3.72 L, Hgb 11.0 L, Hct 34.0 L, MCV 91.4, MCH 29.6, MCHC 32.4, RDW 15.4 H, RDW Differential 50.2 H, Plt Count 210, MPV 10.5 12/31/18 05:42: Sodium 144, Potassium 3.4 L, Chloride 113 H, Carbon Dioxide 27.0, Anion Gap 4 L, BUN 6 L, Creatinine 0.63, Estim Creat Clear Calc 112.56, Est GFR (MDRD) Af Amer 132, Est GFR (MDRD) Non-Af 109, BUN/Creatinine Ratio 9.6 L, Glucose 134 H, Calcium 7.9 L 12/31/18 07:04: POC Glucose 127 H 12/31/18 12:03: POC Glucose 157 H Current Medications Acetaminophen (Tylenol) 500 mg PO Q6H PRN PRN PRN Reason: PAIN Atorvastatin Calcium (Lipitor) 40 mg PO DAILY [facility] Last Admin: 12/31/18 08:18 Dose: 40 mg Baclofen (Lioresal) 10 mg PO TID [facility] Last Admin: 12/31/18 14:23 Dose: 10 mg Buspirone HCl (Buspar) 10 mg PO TID [facility] Last Admin: 12/31/18 14:23 Dose: 10 mg Clonidine (Catapres) 0.1 mg PO QHS [facility] Last Admin: 12/30/18 21:20 Dose: 0.1 mg Clopidogrel Bisulfate (Plavix) 75 mg PO DAILY [facility] Last Admin: 12/31/18 08:18 Dose: 75 mg Diazepam (Valium) 5 mg PO TID PRN PRN PRN Reason: SPASMS Last Admin: 12/29/18 07:42 Dose: 5 mg Docusate Sodium (Colace) 100 mg PO BID [facility] Last Admin: 12/31/18 08:19 Dose: 100 mg Duloxetine HCl (Cymbalta) 60 mg PO BID [facility] Last Admin: 12/31/18 08:19 Dose: 60 mg Enoxaparin Sodium (Lovenox) 30 mg SC DAILY@0600 [facility] Last Admin: 12/31/18 05:58 Dose: 30 mg Famotidine (Pepcid) 20 mg PO BID [facility] Last Admin: 12/31/18 08:18 Dose: 20 mg Hydromorphone HCl (Dilaudid Inj) 2 mg IV Q3H PRN PRN PRN Reason: SEVERE PAIN (6-10/10) Last Admin: 12/30/18 02:40 Dose: 2 mg Lactated Ringer's () 1,000 mls @ 60 mls/hr IV .[id number] [facility] Last Admin: 12/30/18 19:45 Dose: 60 mls/hr Vancomycin IV Pharmacy to Dose (1 ea/ Sodium Chloride) 500 mls @ 250 mls/hr IV X1 PRN; Protocol PRN Reason: Rx to Dose Vancomycin HCl 1,750 mg/ (Sodium Chloride) 535 mls @ 250 mls/hr IV Q12H [facility] Last Admin: 12/31/18 08:11 Dose: 250 mls/hr Insulin Glargine (Lantus (Bkc)) 50 units SC QHS [facility] Last Admin: 12/30/18 21:19 Dose: 50 units Insulin Human Lispro (Humalog Kwikpen (Bkc)) 12 unit SC TIDAC [facility] Last Admin: 12/31/18 12:05 Dose: 12 units Insulin Human Lispro (Humalog Kwikpen (Bkc)) 0 unit SC ACHS [facility]; Protocol Last Admin: 12/31/18 12:05 Dose: 1 units Loratadine (Claritin) 10 mg PO DAILY [facility] Last Admin: 12/31/18 08:18 Dose: 10 mg Metronidazole (Flagyl) 500 mg PO TID [facility] Last Admin: 12/31/18 14:23 Dose: 500 mg Non-Formulary Medication (Dulaglutide [Trulicity]) 1.5 mg SC QWEEK [facility] Nutritional Formula (James - [place] Flavor) 1 packet PO BIDCM [facility] Last Admin: 12/31/18 08:11 Dose: Not Given Ondansetron HCl (Zofran) 4 mg IV Q6H PRN PRN PRN Reason: NAUSEA Oxycodone HCl (Oxyir) 10 mg PO Q4H PRN PRN PRN Reason: SEVERE PAIN (6-10/10) Last Admin: 12/31/18 12:13 Dose: 10 mg Pantoprazole Sodium (Protonix) 40 mg PO DAILY [facility] Last Admin: 12/31/18 08:18 Dose: 40 mg Potassium Chloride (K-Dur) 40 meq PO DAILYCM [facility] Stop: 01/02/19 09:01 Last Admin: 12/31/18 08:18 Dose: 40 meq Pregabalin (Lyrica) 100 mg PO TID [facility] Last Admin: 12/31/18 14:35 Dose: 100 mg Promethazine HCl (Phenergan Tablet) 25 mg PO Q4H PRN PRN PRN Reason: NAUSEA/VOMITING Sodium Chloride () 5 - 15 ml IV UD PRN PRN Reason: SALINE FLUSH Last Admin: 12/30/18 15:55 Dose: 10 ml Medical Necessity - Tobacco Use Smoking Status: Current every day smoker Tobacco Use: Cigarettes Assessment/Plan All Active Problems (Last Reviewed 11/16/18 @ 09:55 by Alma Delia Borrego) Skin ulcer of abdomen (Acute) Vulvovaginal candidiasis (Acute) Type 2 diabetes mellitus with other skin ulcer (Acute) Skin flap infection (Acute) Osteomyelitis (Acute) The patient is a 48 y/o F w/ PMHx of obesity, Anxiety and Depression, Diabetes mellitus type II with chronic polyneuropathy, GERD, Raynaud's disease, perip heral arterial disease with history of thrombosis in bilateral femoral artery was admitted on 12/28/18 w/ history of ongoing pain to the right BKA stump with fluid collection in the anterior aspect for planned right BKA stump revision. The patient had Surgical incision, drainage and excisional debridement of infected seroma anterior to right BKA stump. Patient had partial ostectomy tibia for ost eomyelitis. Surgery was done on 12/28/2018 1. Right BKA stump pain: Patient had above-mentioned procedure on 12/28/2018 for clinical suspicion of osteomyelitis. The patient had recent MRI 11/25 with no osteo, however there was a rim enhancing fluid collection next to the surgical site 2.2x0.6x1.4cm. No fever/leukocytosis. Wound vac neck is placed on 12/29/2017. On Vanc/flagyl. Hx MRSA, MSSE infections. Surgical site is wrapped with Javier wrap bandage. CARMEN drain present with minimal 10 mL serous fluid. -BKA originally was 4 years ago -Follow surgical cultures. Preliminary Gram stain of tissue culture does not show any organism growth for 48 hours. Patient complain of significant pain over surgical site. Pain control. PT and OT. Patient had Jackson catheter on 12/26/2018. Once pain is controlled and patient is more well, can remove Jackson catheter. Patient is on vancomycin and Flagyl. Patient is being discharged home with home health care. Patient is being discharged on Bactrim DS and Flagyl. Follow-up with ID and Dr. Guadarrama. 2. DMt2 - continue SSI, lantus, mealtime insulin. titrate to response. last a1c 10.9 on 11/24. Blood sugar is controlled. 3. 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 PVD - on plavix 5. Nicotine abuse - cessation, will complicate wound healing 6. Anxiety/Depression - cymbalta, valium 7. Chronic RLE and back pain - baclofen, lyrica, cymbalta 8. GERD - on ppi DVT ppx: lovenox Active Medications Acetaminophen (Tylenol) 500 mg PO Q6H PRN PRN PRN Reason: PAIN Atorvastatin Calcium (Lipitor) 40 mg PO DAILY [facility] Last Admin: 12/30/18 11:29 Dose: 40 mg Baclofen (Lioresal) 10 mg PO TID [facility] Last Admin: 12/30/18 13:21 Dose: 10 mg Buspirone HCl (Buspar) 10 mg PO TID [facility] Last Admin: 12/30/18 13:21 Dose: 10 mg Clonidine (Catapres) 0.1 mg PO QHS [facility] Last Admin: 12/29/18 21:47 Dose: 0.1 mg Clopidogrel Bisulfate (Plavix) 75 mg PO DAILY [facility] Last Admin: 12/30/18 11:29 Dose: 75 mg Diazepam (Valium) 5 mg PO TID PRN PRN PRN Reason: SPASMS Last Admin: 12/29/18 07:42 Dose: 5 mg Docusate Sodium (Colace) 100 mg PO BID [facility] Last Admin: 12/30/18 11:05 Dose: 100 mg Duloxetine HCl (Cymbalta) 60 mg PO BID [facility] Last Admin: 12/30/18 11:25 Dose: 60 mg Enoxaparin Sodium (Lovenox) 30 mg SC DAILY@0600 [facility] Last Admin: 12/30/18 06:34 Dose: 30 mg Famotidine (Pepcid) 20 mg PO BID [facility] Last Admin: 12/30/18 11:29 Dose: 20 mg Hydromorphone HCl (Dilaudid Inj) 2 mg IV Q3H PRN PRN PRN Reason: SEVERE PAIN (6-10/10) Last Admin: 12/30/18 02:40 Dose: 2 mg Metronidazole (Flagyl) 500 mg in 100 mls @ 100 mls/hr IV Q8 [facility] Last Admin: 12/30/18 13:20 Dose: 100 mls/hr Lactated Ringer's () 1,000 mls @ 60 mls/hr IV .[id number] [facility] Last Admin: 12/29/18 13:42 Dose: 60 mls/hr Vancomycin IV Pharmacy to Dose (1 ea/ Sodium Chloride) 500 mls @ 250 mls/hr IV X1 PRN; Protocol PRN Reason: Rx to Dose Vancomycin HCl 1,750 mg/ (Sodium Chloride) 535 mls @ 250 mls/hr IV Q12H [facility] Last Admin: 12/30/18 08:05 Dose: 250 mls/hr Insulin Glargine (Lantus (Bkc)) 50 units SC QHS [facility] Last Admin: 12/29/18 21:47 Dose: 50 units Insulin Human Lispro (Humalog Kwikpen (Bkc)) 12 unit SC TIDAC [facility] Last Admin: 12/30/18 13:15 Dose: 12 units Insulin Human Lispro (Humalog Kwikpen (Bkc)) 0 unit SC ACHS [facility]; Protocol Last Admin: 12/30/18 13:16 Dose: 2 units Loratadine (Claritin) 10 mg PO DAILY [facility] Last Admin: 12/30/18 11:25 Dose: 10 mg Non-Formulary Medication (Dulaglutide [Trulicity]) 1.5 mg SC QWEEK [facility] Nutritional Formula (James - [facility] Flavor) 1 packet PO BIDCM [facility] Last Admin: 12/30/18 08:05 Dose: Not Given Ondansetron HCl (Zofran) 4 mg IV Q6H PRN PRN PRN Reason: NAUSEA Oxycodone HCl (Oxyir) 10 mg PO Q4H PRN PRN PRN Reason: SEVERE PAIN (6-10/10) Last Admin: 12/30/18 11:25 Dose: 10 mg Pantoprazole Sodium (Protonix) 40 mg PO DAILY [facility] Last Admin: 12/30/18 11:27 Dose: 40 mg Pregabalin (Lyrica) 100 mg PO TID [facility] Last Admin: 12/30/18 13:21 Dose: 100 mg Promethazine HCl (Phenergan Tablet) 25 mg PO Q4H PRN PRN PRN Reason: NAUSEA/VOMITING Sodium Chloride () 5 - 15 ml IV UD PRN PRN Reason: SALINE FLUSH Last Admin: 12/29/18 13:47 Dose: 10 ml Microbiology Past 72 Hours 12/28/18 Unknown Tissue - Leg, Right Gram Stain - Final 12/28/18 Unknown Tissue - Leg, Right Wound Culture - Final No growth aerobically. 12/28/18 Unknown Tissue - Leg, Right Anaerobic Culture - Preliminary No growth in 48 hours. 12/28/18 Unknown Bone - Leg, Right Gram Stain - Final 12/28/18 Unknown Bone - Leg, Right Wound Culture - Final No growth aerobically. 12/28/18 Unknown Bone - Leg, Right Anaerobic Culture - Preliminary No growth in 48 hours. Code Visit Inpatient E&M: [id number] Subs Hosp L2
== END 2018-12-31 16:06 | disposition home health service (06) | DRG 313 ==
LOC: MS3 14:08 → SDC 12-31 09:41
PROVIDERS: Anesthesiology; Internal Medicine; Admitting Provider Surgery; Family Provider Internal Medicine; PCP Internal Medicine; Referring Provider Surgery; Visit Provider Surgery
DX: T87.89 Other complications of amputation stump (principal); E78.5 Hyperlipidemia, unspecified; F17.210 Nicotine dependence, cigarettes, uncomplicated; E11.42 Type 2 diabetes mellitus with diabetic polyneuropathy; K21.9 Gastro-esophageal reflux disease without esophagitis; E11.51 Type 2 diabetes mellitus with diabetic peripheral angiopathy without gangrene; F41.9 Anxiety disorder, unspecified; Z89.511 Acquired absence of right leg below knee; Z79.4 Long term (current) use of insulin; F32.9 Major depressive disorder, single episode, unspecified; Z93.3 Colostomy status; M54.9 Dorsalgia, unspecified; G89.29 Other chronic pain; I10 Essential (primary) hypertension
CPT/HCPCS: 36415; 80048; 80202; 82962; 84134; 85027; 87070; 87075; 87102; 87205; 87206; 88304; 88305; 88311; 93005; 99406; J7040; J7120; A4216; J2405

== ENCOUNTER 2019-01-25 09:45 | Outpatient (RCR) | payer MEDICAID, SELFPAY ==
[2018-12-28 15:39] VITALS: BMI 33.3
[2019-01-11 08:51] VITALS: BP 126/74; PULSE 108; RESP 18; TEMP 36.9; BMI 32.3
--- NOTE | 2019-01-11 10:51 | PCM.WC.PN ---
(1) Open wound of right lower leg with complication Status: Acute Code(s): S81.801A - Unspecified open wound, right lower leg, initial encounter Comment: open surgical wound anterior aspect right BKA stump (2) Infection of amputation stump, right lower extremity Status: Acute Code(s): T87.43 - Infection of amputation stump, right lower extremity Comment: infected seroma anterior aspect right BKA stump (3) 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 Status: Chronic Code(s): T87.89 - Other complications of amputation stump; M79.604 - Pain in right leg Comment: right BKA (4) Tobacco abuse Status: Chronic Code(s): Z72.0 - Tobacco use (5) DM2 (diabetes mellitus, type 2) Status: Chronic Code(s): E11.9 - Type 2 diabetes mellitus without complications Type of Wound Date of Service: 01/11/19 Chief Complaint: Left lower abdomen with non healing sore from a boil that popped a few weeks ago. History of Wound: 48 year old woman presents with pain in her right BKA stump that has worsened over the last several months. She states she underwent the right BKA about 4 years ago. About 6 months postop she needed additional surgery with removal of scar tissue. She is also in the process of getting her prosthesis revised as well. She denies any fever. She denies any recent trauma. She denies any recent infection. She denies any drainage.On 12/28/18 she underwent 1. 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 2. Partial ostectomy tibia for osteomyelitis. 3. Complex secondary wound closure revision reconstruction. She denies any fever or nausea and vomiting today. Progress of Wound: Stable - Physical Exam Vital Signs Temp Pulse Resp BP 98.4 F 108 H 18 126/74 H 01/11/19 08:51 01/11/19 08:51 01/11/19 08:51 01/11/19 08:51 General: Alert, Oriented x3, Cooperative HEENT: Atraumatic, PERRLA Oral: Moist Mucosa Lungs: Normal air movement Cardiovascular: Regular rate Extremities: Capillary Refill Less than 3 Seconds, Edema, Tenderness Skin: Ulcer/ Wound - Right stump incisional wound with open area on anterior surface of stump Wound Measurements and Assessment WC - Nurse 1 - General Ulcer Measurement Start: 01/11/19 08:30 Freq: Status: Active Protocol: Activity Type Activity Date Activity User E-Sign Co-Sign Detail Recorded Client Recorded Date Recorded By Document 01/11/19 08:51 [email or web address] [id number] 01/11/19 09:10 AN 01/11/19 08:51 Wound Center Nurse 1 [Ulcer Assessment] #4 right yusuf -Current Size (cm) - Length 1.8 -Current Size (cm) - Width 0.4 -Current Size (cm) - Depth 0.8 -Total Square Cm 0.72 -Date of Last Picture (Recall this 01/11/19 field) -Photo Taken Yes -Epithelialization None Present -Tunneling No -Undermining/Tunneling No -Classification - Thickness Full Thickness without Exposed Support Structure -Exudate Amt Small -Exudate Type Serosanguineous -Wound Margin Distinct, Outline Attached -Granulation Amt Large (67-100%) -Granulation Quality Pale Freeman -Slough/Fibrin No -Necrosis Amt Small (1-33%) -Structure Exposed None/Limited to Skin Breakdown -Texture (Love-wound Skin Appearance) Assessed -Moisture (Love-wound Skin Appearance Assessed ) Maceration -Color (Love-wound Skin Appearance) Erythema -Temperature (Love-wound Skin No Abnormality Appearance) (Pt Warm) -Tenderness on Palpation (Love-wound Yes Skin Appearance) -Ulcer Cleansing Rinsed/ Irrigated with Saline -Foul Odor after Cleansing No -Anesthetic Used 5% Lidocaine Gel SOL - Nurse 2 - General Ulcer CM Notes Start: 01/11/19 08:30 Freq: Status: Active Protocol: Activity Type Activity Date Activity User E-Sign Co-Sign Detail Recorded Client Recorded Date Recorded By Document 01/11/19 10:01 SHAYNA [id number] 01/11/19 10:03 SHAYNA 01/11/19 10:01 Wound Center Nurse 2 [Procedure/Treatment] -Time 10:02 -Correct Patient Yes -Correct Side, Site, Position Yes -Correct Procedure Yes -Procedure Performed Yes -Type of Procedure Debridement -Clinical Debridement Muscle -Post Debridement Size (cm) - Length 2.3 -Post Debridement Size (cm) - Width 0.7 -Post Debridement Size (cm) - Depth 1.3 -Total Square Cm 1.61 -Wound/Ulcer Outcome Not Healed -Ulcer Cleansing Rinsed/ Irrigated with Saline -Foul Odor after Cleansing No -Bioengineered Tissue No -Bleeding Controlled with Pressure -Offloading No -Treatment Response Procedure Tolerated Well [See Physician Procedure note for Specifics] Pain Scale: 0-10 Numeric [Pain] -Is Patient Pain Free? Yes Musculoskeletal: Tenderness - Tenderness to the right stump Neurological: Neuro grossly intact Psych/Mental Status: Normal Affect, Appropriate Debridement Note Post-Debridement Measurements/Treatment WC - Nurse 2 - General Ulcer CM Notes Start: 01/11/19 08:30 Freq: Status: Active Protocol: Activity Type Activity Date Activity User E-Sign Co-Sign Detail Recorded Client Recorded Date Recorded By Document 01/11/19 10:01 SHAYNA [id number] 01/11/19 10:03 SHAYNA 01/11/19 10:01 Wound Center Nurse 2 #4 right yusuf -Time 10:02 -Correct Patient Yes -Correct Side, Site, Position Yes -Correct Procedure Yes -Procedure Performed Yes -Type of Procedure Debridement -Clinical Debridement Muscle -Post Debridement Size (cm) - Length 2.3 -Post Debridement Size (cm) - Width 0.7 -Post Debridement Size (cm) - Depth 1.3 -Total Square Cm 1.61 -Wound/Ulcer Outcome Not Healed -Ulcer Cleansing Rinsed/ Irrigated with Saline -Foul Odor after Cleansing No -Bioengineered Tissue No -Bleeding Controlled with Pressure -Offloading No -Treatment Response Procedure Tolerated Well Pain Scale: 0-10 Numeric Is Patient Pain Free? Yes Wound debrided: Right anterior BKA stump Laterality: Right Type of Debridement: Excisional debridement Anesthesia Used: 5% Lidocaine Gel Depth: Down to and including healthy tissue, in the subcutaneous layer Percentage of wound debrided: 100 Instrument Used: 7mm curette Tissue Removed: Subcutaneous tissue and slough Severity: Fat Layer Exposed Amount of bleeding with debridement: Mild Bleeding Controlled with: Pressure Patient tolerated procedure well Assessment/Plan Assessment: 1. Open wound of right let with complication. 2. Infection of amputation stump of right lower extremity. 3. Pain of amuputation stump of right lower extremity. 4. Diabetes mellitus, type 2. 5. Tobacco Abuse disorder Plan: Patient was seen and examined in the wound center today. She recently complained of pain inn her right BKA stump that had worsened over the last several months. She states she underwent the right BKA about 4 years ago. About 6 months postop she needed additional surgery with removal of scar tissue. She is also in the process of getting her prosthesis revised as well. On 12/28/18 she had a surgical preparation right BKA stump with incision and drainage and excisional debridement chronic infected seroma anterior aspect of stump and partial ostectomy tibia for osteomyelitis and complex secondary wound closure revision reconstruction. She was sent hortensia with a wound VAC to the right anterior open area. The CARMEN drain was removed today. Incision dry and intact and sutures intact. It was draining less than 25 ml every 2 days. She states that her pain has not been well controlled. She denies any fever. Percocet (40) renewed and Valium (21) renewed for muscle spasm. OARRS report reviewed, no suspicious activity noted. Continue wound VAC. Pathology from 12/28/18 right tibia bone negative for acute osteomyelitis. The wound cultures of the bone and soft tissue were negative for any organisms. Follow up in one week. Code Visit [id number]
[2019-01-25 09:57] VITALS: BP 114/63; PULSE 93; RESP 18; TEMP 36.4; BMI 32.3
--- NOTE | 2019-01-25 20:00 | PCM.WC.PN ---
Type of Wound Date of Service: 01/25/19 Chief Complaint: Open surgical wound anterior aspect right BKA stump. History of Wound: Surgery 12/28/18 - 1. 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 2. Partial ostectomy tibia for osteomyelitis. 3. Complex secondary wound closure revision reconstruction. Wound care - VAC. Operative culture - negative. She was discharged on Bactrim DS and Flagyl. Pathology - negative for osteomyelitis. Prealbumin from 12/29/18 was 15.0. Encourage nutritional supplementation with protein to help the healing process. MRI from 12/01/18 showed small rim-enhancing abscess at the anterior lateral subcutaneous tissues. Below-knee amputation without acute osteomyelitis. Mild medial and lateral compartment cartilage loss. Tiny popliteal cyst. Muscle atrophy.. Today she denies fever. Her appetite is ok. Progress of Wound: Improved. - Physical Exam Vital Signs Temp Pulse Resp BP 97.5 F L 93 18 114/63 01/25/19 09:57 01/25/19 09:57 01/25/19 09:57 01/25/19 09:57 Wound Measurements and Assessment WC - Nurse 1 - General Ulcer Measurement Start: 01/11/19 08:30 Freq: Status: Active Protocol: Activity Type Activity Date Activity User E-Sign Co-Sign Detail Recorded Client Recorded Date Recorded By Document 01/25/19 09:57 DL [id number] 01/25/19 10:05 DL 01/25/19 09:57 Wound Center Nurse 1 [Ulcer Assessment] #5 right yusuf -Current Size (cm) - Length 1.4 -Current Size (cm) - Width 0.6 -Current Size (cm) - Depth 0.6 -Total Square Cm 0.84 -Photo Taken No -Exudate Amt Small -Exudate Type Serosanguineous -Wound Margin Distinct, Outline Attached -Granulation Amt Small (1-33%) -Granulation Quality [place] -Necrosis Amt Medium (34-66%) -Necrotic Tissue Type Adherent Slough -Structure Exposed N/A -Texture (Love-wound Skin Appearance) Scarring -Moisture (Love-wound Skin Appearance Maceration ) -Color (Love-wound Skin Appearance) No Abnormality -Temperature (Love-wound Skin No Abnormality Appearance) (Pt Warm) -Tenderness on Palpation (Love-wound No Skin Appearance) -Ulcer Cleansing Wound Cleanser -Foul Odor after Cleansing No -Anesthetic Used 5% Lidocaine Gel - Nurse 2 - General Ulcer CM Notes Start: 01/11/19 08:30 Freq: Status: Active Protocol: Activity Type Activity Date Activity User E-Sign Co-Sign Detail Recorded Client Recorded Date Recorded By Document 01/25/19 10:24 [id number] 01/25/19 10:28 01/25/19 10:24 Wound Center Nurse 2 [Procedure/Treatment] -Time 10:25 -Correct Patient Yes -Correct Side, Site, Position Yes -Correct Procedure Yes -Procedure Performed Yes -Type of Procedure Debridement -Clinical Debridement Subcutaneous -Post Debridement Size (cm) - Length 1.6 -Post Debridement Size (cm) - Width 0.8 -Post Debridement Size (cm) - Depth 1.0 -Total Square Cm 1.28 -Wound/Ulcer Outcome Not Healed -Ulcer Cleansing Rinsed/ Irrigated with Saline -Foul Odor after Cleansing No -Bioengineered Tissue No -Bleeding Controlled with Pressure -Offloading No -Treatment Response Procedure Tolerated Well [See Physician Procedure note for Specifics] Pain Scale: 0-10 Numeric [Pain] -Is Patient Pain Free? Yes Debridement Note Post-Debridement Measurements/Treatment - Nurse 2 - General Ulcer CM Notes Start: 01/11/19 08:30 Freq: Status: Active Protocol: Activity Type Activity Date Activity User E-Sign Co-Sign Detail Recorded Client Recorded Date Recorded By Document 01/11/19 10:01 [id number] 01/11/19 10:03 Document 01/25/19 10:24 [id number] 01/25/19 10:28 01/11/19 01/25/19 10:01 10:24 Wound Center Nurse 2 #5 right yusuf -Time 10:02 10:25 -Correct Patient Yes Yes -Correct Side, Site, Position Yes Yes -Correct Procedure Yes Yes -Procedure Performed Yes Yes -Type of Procedure Debridement Debridement -Clinical Debridement Muscle Subcutaneous -Post Debridement Size (cm) - Length 2.3 1.6 -Post Debridement Size (cm) - Width 0.7 0.8 -Post Debridement Size (cm) - Depth 1.3 1.0 -Total Square Cm 1.61 1.28 -Wound/Ulcer Outcome Not Healed Not Healed -Ulcer Cleansing Rinsed/ Rinsed/ Irrigated with Irrigated with Saline Saline -Foul Odor after Cleansing No No -Bioengineered Tissue No No -Bleeding Controlled with Pressure Pressure -Offloading No No -Treatment Response Procedure Procedure Tolerated Well Tolerated Well Pain Scale: 0-10 Numeric Is Patient Pain Free? Yes Yes Wound debrided: #5 Anterior aspect right BKA stump. Laterality: Right Wound Grade/Stage: 4. Type of Debridement: Excisional debridement Anesthesia Used: 4% Lidocaine Solution Depth: Down to and including healthy tissue, in the subcutaneous layer Percentage of wound debrided: 100 Instrument Used: 5mm curette Tissue Removed: subcutaneous tissue. Severity: Fat Layer Exposed Amount of bleeding with debridement: Mild Bleeding Controlled with: Pressure Patient tolerated procedure well Assessment/Plan Assessment: 1. Painful right BKA stump. 2. 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 3. Open surgical wound anterior aspect right BKA stump. 4. Diabetes mellitus. 5. PVD. 6. Smoker. 7. History of necrotizing infection. 8. History of diverting colostomy. 9. 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 Plan: Continue the VAC to the anterior aspect right BKA stump wound. She is done with her antibiotics, Bactrim DS and Flagyl from her surgery in December. Her operative culture was negative. The Pathology was negative for osteomyelitis. Her Prealbumin from 12/29/18 was 15.0. Encourage nutritional supplementation with protein to help the healing process. I renewed her Percocet for pain (30 tabs). Follow 2 weeks.
== END 2019-02-05 23:59 ==
LOC: WC 09:45
PROVIDERS: Family Provider Internal Medicine; PCP Internal Medicine; Visit Provider Surgery
DX: T87.43 Infection of amputation stump, right lower extremity (principal); Y83.8 Other surgical procedures as the cause of abnormal reaction of the patient, or of later complication, without mention of misadventure at the time of the procedure; E11.51 Type 2 diabetes mellitus with diabetic peripheral angiopathy without gangrene; T87.40 Infection of amputation stump, unspecified extremity; Z93.3 Colostomy status
CPT/HCPCS: 11042; 11043; 97605; 99213; G0463

== ENCOUNTER 2019-02-03 15:45 | Emergency (ER) | payer MEDICAID, SELFPAY ==
[2019-02-03 15:46] VITALS: BP 172/103; PULSE 91; RESP 16; TEMP 37; O2SAT 97; BMI 31.9
--- NOTE | 2019-02-03 16:02 | ED.VIS.GEN ---
History of Present Illness Chief Complaint: Wound Detail of Chief Complaint: Valuation of right BKA stump site Onset: Days Context: Gradual Onset Timing: Continuous Quality: Redness Location: Right BKA stump site status post revision December 26, 2018 Current Severity: Mild Maximum Severity: Mild Worsened by: Nothing Relieved by: Nothing Associated Symptoms: No constitutional symptoms Narrative: Patient is a 48-year-old woman who had revision of her right BKA site December 26, [address] Guadarrama. She was sent in for evaluation of her wound. She noted redness. She is scheduled to see Dr. Guadarrama at the wound center this coming March 07. He denies fever, chills night sweats. She was on a course of antibiotics. She is no longer on antibiotics. She has not noted any drainage. She does report pain. Review of prior records indicates she always has pain. Prior similar symptoms: Yes Recent Illness/Hospitalization: Yes - Past Medical History (1) Infection of amputation stump, right lower extremity Status: Acute Comment: infected seroma anterior aspect right BKA stump (2) Osteomyelitis Status: Acute (3) Type 2 diabetes mellitus with other skin ulcer Status: Acute (4) Anxiety and depression Status: Chronic (5) Benign essential HTN Status: Chronic (6) Chronic pain Status: Chronic (7) PVD (peripheral vascular disease) Status: Chronic (8) 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 Status: Chronic Comment: right BKA (9) Smoker Status: Chronic Past Medical History - Allergies and Home Meds Allergies/Adverse Reactions: Allergies fentanyl Allergy (Verified 02/03/19 15:49) Other morphine Adverse Reaction (Verified 02/03/19 15:49) Upset Stomach Primary Care Physician: Sasha Rodriguez MD [Primary Care Provider] - Prior records reviewed: Yes Surgical History: - Lives: With Family Smoking Status: Current every day smoker Alcohol: None - Family History Maternal Family History: Family History (Last Reviewed 11/16/18 @ 09:55 by Alma Delia Borrego) Father Cancer Mother Hypertension Fibromyalgia Thyroid disorder Brother Diabetes Grandmother Myocardial infarction Grandfather Cancer Family History: Reports: Diabetes Review of Systems General: Denies: Chills, Fever, Malaise, Subjective, Sweats, Weight loss, - Cardiovascular: Denies: Chest pain, Palpitations, Heart racing, -, - Respiratory: Denies: Dyspnea, Cough, Dyspnea on exertion Gastrointestinal: Denies: Nausea, Vomiting Musculoskeletal: Reports: Extremity Pain. Denies: Myalgias, Arthralgias, Neck pain, Back pain, Swelling Skin: Reports: Rash, Wounds. Denies: Abscess, Abrasions Neurological: Reports: Parasthesia. Denies: Weakness, Numbness Psych: Reports: Depression, Anxiety Hematologic: Denies: Easy bruising, Easy bleeding Allergy: Denies: Uticaria Physical Exam Vital Signs/Narrative: Vital Signs Temp Pulse Resp BP Pulse Ox 02/03/19 15:46 98.6 F 91 16 172/103 H 97 Inital Vital Signs reviewed: Yes General: Well nourished, Well developed, No Acute Distress Head: Normocephalic, Atraumatic Eyes: Perrl, EOMI. Negative for: Pale conjunctiva, Scleral icterus, - Cardiovascular: Regular rate, Regular rhythm, No murmurs, Normal S1, Normal S2 Respiratory: No distress, CTA bilaterally, Chest nontender Extremities: No edema, Tenderness, - - There is erythema greater than 1 cm from incision site. There may be slight warmth. There is no fluctuance, crepitus or subcutaneous air. There is no lymphangitis. There is no inguinal lymphadenopathy. Unable to express any fluid from incision site with palpation and pressure.. Negative for: Nontender Skin: Normal color, Rash Neurological: Alert, Oriented x3, Cranial nerves II-XII grossly intact Psychological: Normal affect, Normal Mood Diagnostic/Tx/Re-eval - Medical Decision Making Patient with probable postop wound infection. In light of patient's past medical history she was prescribed doxycycline for streptococcal and staphylococcal coverage. Since she has no constitutional symptoms and vital signs are normal blood work was not obtained. The area was outlined with marking pen. Superior portion could not be marked out completely because she has a wound VAC dressing on. Differential would include postop wound and changes secondary to retained stitches versus cellulitis. ED Disposition - Plan for ED Patient: Disposition: Home or Assisted Living Diagnosis: Superficial postoperative wound infection Instructions: ED Wound Infec After Surgery Prescriptions: Doxycycline 100 mg PO BID #10 capsule Referrals: Sasha Rodriguez MD [Primary Care Provider] - Additional Instructions: Keep scheduled appointment for February 08 at the wound clinic. Your prescription was electronically transmitted to [facility] on [facility].
[2019-02-03] MEDS: Doxycycline 100 MG CAPSULE PO (16:20)
[2019-02-03 16:25] VITALS: RESP 18
== END 2019-02-03 16:27 | disposition home or self-care (01) ==
LOC: ED 16:20
PROVIDERS: Emergency Provider Emergency Medicine; Family Provider Internal Medicine; PCP Internal Medicine
DX: T81.41XA Infection following a procedure, superficial incisional surgical site, initial encounter (principal); Z89.511 Acquired absence of right leg below knee; I10 Essential (primary) hypertension; E11.622 Type 2 diabetes mellitus with other skin ulcer; L98.499 Non-pressure chronic ulcer of skin of other sites with unspecified severity; I73.9 Peripheral vascular disease, unspecified; F17.200 Nicotine dependence, unspecified, uncomplicated; G89.29 Other chronic pain; F32.9 Major depressive disorder, single episode, unspecified; F41.9 Anxiety disorder, unspecified; Z79.4 Long term (current) use of insulin; Z79.02 Long term (current) use of antithrombotics/antiplatelets; Z79.899 Other long term (current) drug therapy
CPT/HCPCS: 99283

== ENCOUNTER 2019-03-01 10:30 | Outpatient (RCR) | payer MEDICARE, MEDICAID, SELFPAY ==
[2019-02-06 01:16] VITALS: BP 114/63; PULSE 93; RESP 18; TEMP 36.4; BMI 32.3
[2019-02-08 10:58] VITALS: BP 130/77; PULSE 97; RESP 18; TEMP 36.3; BMI 32.3
--- NOTE | 2019-02-08 13:15 | PCM.WC.PN ---
(1) Open wound of right lower leg with complication Status: Chronic Code(s): S81.801A - Unspecified open wound, right lower leg, initial encounter Comment: open surgical wound anterior aspect right BKA stump (2) Infection of amputation stump, right lower extremity Status: Chronic Code(s): T87.43 - Infection of amputation stump, right lower extremity Comment: infected seroma anterior aspect right BKA stump (3) 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 Status: Chronic Code(s): T87.89 - Other complications of amputation stump; M79.604 - Pain in right leg Comment: right BKA (4) Tobacco abuse Status: Chronic Code(s): Z72.0 - Tobacco use (5) PVD (peripheral vascular disease) Status: Chronic Code(s): I73.9 - Peripheral vascular disease, unspecified (6) DM2 (diabetes mellitus, type 2) Status: Chronic Code(s): E11.9 - Type 2 diabetes mellitus without complications Type of Wound Date of Service: 02/08/19 Chief Complaint: Left lower abdomen with non healing sore from a boil that popped a few weeks ago. History of Wound: 48 year old woman presents with pain in her right BKA stump that has worsened over the last several months. She states she underwent the right BKA about 4 years ago. About 6 months postop she needed additional surgery with removal of scar tissue. She is also in the process of getting her prosthesis revised as well. She denies any fever. She denies any recent trauma. She denies any recent infection. She denies any drainage. On 12/28/18 she underwent 1. 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 2. Partial ostectomy tibia for osteomyelitis. 3. Complex secondary wound closure revision reconstruction. She denies any fever or nausea and vomiting today. Progress of Wound: Stable - Physical Exam Vital Signs Temp Pulse Resp BP 97.3 F L 97 18 130/77 H 02/08/19 10:58 02/08/19 10:58 02/08/19 10:58 02/08/19 10:58 General: Alert, Oriented x3, Cooperative HEENT: Atraumatic Oral: Moist Mucosa Lungs: Normal air movement Cardiovascular: Regular rate Extremities: Capillary Refill Less than 3 Seconds, Edema - right bka stump Skin: Ulcer/ Wound - right bka ulcer on anterior aspect. Sutures removed today Wound Measurements and Assessment WC - Nurse 1 - General Ulcer Measurement Start: 02/08/19 10:58 Freq: Status: Active Protocol: Activity Type Activity Date Activity User E-Sign Co-Sign Detail Recorded Client Recorded Date Recorded By Document 02/08/19 10:58 DL [id number] 02/08/19 11:06 DL 02/08/19 10:58 Wound Center Nurse 1 [Ulcer Assessment] #5 right yusuf -Current Size (cm) - Length 1 -Current Size (cm) - Width 0.6 -Current Size (cm) - Depth 0.5 -Total Square Cm 0.6 -Photo Taken No -Exudate Amt Small -Exudate Type Serosanguineous -Wound Margin Distinct, Outline Attached -Granulation Amt Small (1-33%) -Granulation Quality Pale [place] -Necrosis Amt Small (1-33%) -Necrotic Tissue Type Adherent Slough -Structure Exposed N/A -Texture (Love-wound Skin Appearance) Scarring -Moisture (Love-wound Skin Appearance Maceration ) -Color (Love-wound Skin Appearance) No Abnormality -Temperature (Love-wound Skin No Abnormality Appearance) (Pt Warm) -Tenderness on Palpation (Love-wound Yes Skin Appearance) -Ulcer Cleansing Wound Cleanser -Foul Odor after Cleansing No -Anesthetic Used 5% Lidocaine Gel WC - Nurse 2 - General Ulcer CM Notes Start: 02/08/19 10:58 Freq: Status: Active Protocol: Activity Type Activity Date Activity User E-Sign Co-Sign Detail Recorded Client Recorded Date Recorded By Document 02/08/19 11:32 AN [id number] 02/08/19 11:34 AN 02/08/19 11:32 Wound Center Nurse 2 [Procedure/Treatment] -Time 11:33 -Correct Patient Yes -Correct Side, Site, Position Yes -Correct Procedure Yes -Procedure Performed Yes -Type of Procedure Debridement -Clinical Debridement Subcutaneous -Post Debridement Size (cm) - Length 1.5 -Post Debridement Size (cm) - Width 0.8 -Post Debridement Size (cm) - Depth 0.9 -Total Square Cm 1.20 -Wound/Ulcer Outcome Not Healed -Ulcer Cleansing Rinsed/ Irrigated with Saline -Foul Odor after Cleansing No -Bioengineered Tissue No -Bleeding Controlled with Pressure -Offloading No -Treatment Response Procedure Tolerated Well [See Physician Procedure note for Specifics] Pain Scale: 0-10 Numeric [Pain] -Is Patient Pain Free? Yes Musculoskeletal: Tenderness - Tenderness to right BKA stump Neurological: Neuro grossly intact Psych/Mental Status: Normal Affect, Appropriate Debridement Note Post-Debridement Measurements/Treatment WC - Nurse 2 - General Ulcer CM Notes Start: 02/08/19 10:58 Freq: Status: Active Protocol: Activity Type Activity Date Activity User E-Sign Co-Sign Detail Recorded Client Recorded Date Recorded By Document 02/08/19 11:32 AN [id number] 02/08/19 11:34 AN 02/08/19 11:32 Wound Center Nurse 2 #5 right yusuf -Time 11:33 -Correct Patient Yes -Correct Side, Site, Position Yes -Correct Procedure Yes -Procedure Performed Yes -Type of Procedure Debridement -Clinical Debridement Subcutaneous -Post Debridement Size (cm) - Length 1.5 -Post Debridement Size (cm) - Width 0.8 -Post Debridement Size (cm) - Depth 0.9 -Total Square Cm 1.20 -Wound/Ulcer Outcome Not Healed -Ulcer Cleansing Rinsed/ Irrigated with Saline -Foul Odor after Cleansing No -Bioengineered Tissue No -Bleeding Controlled with Pressure -Offloading No -Treatment Response Procedure Tolerated Well Pain Scale: 0-10 Numeric Is Patient Pain Free? Yes Wound debrided: Right BKA ulcer Type of Debridement: Excisional debridement Anesthesia Used: 5% Lidocaine Gel Depth: Down to and including healthy tissue, in the subcutaneous layer Percentage of wound debrided: 100 Instrument Used: 5mm curette Tissue Removed: Subcutaneous tissue and slough Severity: Fat Layer Exposed Amount of bleeding with debridement: Mild Bleeding Controlled with: Compression and gauze Assessment/Plan Assessment: 1. Open wound of right let with complication. 2. Infection of amputation stump of right lower extremity. 3. Pain of amuputation stump of right lower extremity. 4. Diabetes mellitus, type 2. 5. Tobacco Abuse disorder Plan: Patient was seen and examined in the wound center today. She recently complained of pain inn her right BKA stump that had worsened over the last several months. She states she underwent the right BKA about 4 years ago. About 6 months postop she needed additional surgery with removal of scar tissue. She is also in the process of getting her prosthesis revised as well. On 12/28/18 she had a surgical preparation right BKA stump with incision and drainage and excisional debridement chronic infected seroma anterior aspect of stump and partial ostectomy tibia for osteomyelitis and complex secondary wound closure revision reconstruction. She was sent hortensia with a wound VAC to the right anterior open area. She states that her pain has not been well controlled. She denies any fever. Percocet (20) renewed and Valium (14) renewed for muscle spasm. OARRS report reviewed, no suspicious activity noted. Continue wound VAC. Pathology from 12/28/18 right tibia bone negative for acute osteomyelitis. The wound cultures of the bone and soft tissue were negative for any organisms. Sutures removed without difficulty. Follow up in one week. Code Visit [id number]
[2019-02-22 10:22] VITALS: BP 139/72; PULSE 99; RESP 18; TEMP 36.6; BMI 32.3
--- NOTE | 2019-02-22 13:08 | PCM.WC.PN ---
(1) Open wound of right lower leg with complication Status: Chronic Code(s): S81.801A - Unspecified open wound, right lower leg, initial encounter Comment: open surgical wound anterior aspect right BKA stump (2) Infection of amputation stump, right lower extremity Status: Chronic Code(s): T87.43 - Infection of amputation stump, right lower extremity Comment: infected seroma anterior aspect right BKA stump (3) 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 Status: Chronic Code(s): T87.89 - Other complications of amputation stump; M79.604 - Pain in right leg Comment: right BKA (4) Tobacco abuse Status: Chronic Code(s): Z72.0 - Tobacco use (5) PVD (peripheral vascular disease) Status: Chronic Code(s): I73.9 - Peripheral vascular disease, unspecified (6) DM2 (diabetes mellitus, type 2) Status: Chronic Code(s): E11.9 - Type 2 diabetes mellitus without complications Type of Wound Date of Service: 02/22/19 Chief Complaint: Right stump ulcer History of Wound: 48 year old woman presents with pain in her right BKA stump that has worsened over the last several months. She states she underwent the right BKA about 4 years ago. About 6 months postop she needed additional surgery with removal of scar tissue. She is also in the process of getting her prosthesis revised as well. She denies any fever. She denies any recent trauma. She denies any recent infection. She denies any drainage. On 12/28/18 she underwent 1. 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 2. Partial ostectomy tibia for osteomyelitis. 3. Complex secondary wound closure revision reconstruction. Wound care consisted of wound VAC, will stop due to the opening being so small. We will do daily silver dressings to the ulcer. She denies any fever or nausea and vomiting today. Progress of Wound: There is improvement to the ulcer on her right BKA stump. On the lateral side of her incision there is a small pocket of clear fluid that drained with palpation. - Physical Exam Vital Signs Temp Pulse Resp BP 98 F 99 18 139/72 H 02/22/19 10:22 02/22/19 10:22 02/22/19 10:22 02/22/19 10:22 General: Alert, Oriented x3, Cooperative HEENT: Atraumatic Oral: Moist Mucosa Lungs: Normal air movement Cardiovascular: Regular rate Extremities: Capillary Refill Less than 3 Seconds, Edema Skin: Ulcer/ Wound - Right BKA ulcer on the anterior surface of stump. Incision line had a small pocket of clear fluid on the lateral aspect of the incision that drained with palpation. Wound Measurements and Assessment WC - Nurse 1 - General Ulcer Measurement Start: 02/08/19 10:58 Freq: Status: Active Protocol: Activity Type Activity Date Activity User E-Sign Co-Sign Detail Recorded Client Recorded Date Recorded By Document 02/22/19 10:22 RB [id number] 02/22/19 10:35 RB 02/22/19 10:22 Wound Center Nurse 1 [Ulcer Assessment] #5 right yusuf -Combined with other wound No -Current Size (cm) - Length 1 -Current Size (cm) - Width 0.4 -Current Size (cm) - Depth 0.6 -Total Square Cm 0.4 -Tunneling No -Undermining/Tunneling No -Circular Undermining No -Exudate Amt Small -Exudate Type Serosanguineous -Wound Margin Distinct, Outline Attached -Granulation Amt Medium (34-66%) -Granulation Quality Pale [place] -Slough/Fibrin Yes -Necrosis Amt Small (1-33%) -Necrotic Tissue Type Adherent Slough -Structure Exposed N/A -Texture (Love-wound Skin Appearance) Assessed -Moisture (Love-wound Skin Appearance Assessed ) -Color (Love-wound Skin Appearance) Assessed -Temperature (Love-wound Skin No Abnormality Appearance) (Pt Warm) -Tenderness on Palpation (Love-wound No Skin Appearance) -Ulcer Cleansing Wound Cleanser -Foul Odor after Cleansing No -Anesthetic Used 5% Lidocaine Gel WC - Nurse 2 - General Ulcer CM Notes Start: 02/08/19 10:58 Freq: Status: Active Protocol: Activity Type Activity Date Activity User E-Sign Co-Sign Detail Recorded Client Recorded Date Recorded By Document 02/22/19 11:21 SHAYNA [id number] 02/22/19 11:26 SHAYNA 02/22/19 11:21 Wound Center Nurse 2 [Procedure/Treatment] -Time 11:22 -Correct Patient Yes -Correct Side, Site, Position Yes -Correct Procedure Yes -Procedure Performed Yes -Type of Procedure Debridement -Clinical Debridement Subcutaneous -Post Debridement Size (cm) - Length 0.9 -Post Debridement Size (cm) - Width 0.4 -Post Debridement Size (cm) - Depth 0.9 -Total Square Cm 0.36 -Wound/Ulcer Outcome Not Healed -Ulcer Cleansing Rinsed/ Irrigated with Saline -Foul Odor after Cleansing No -Bioengineered Tissue No -Bleeding Controlled with Pressure -Offloading Yes -Type of Offloading Knee Walker -Treatment Response Procedure Tolerated Well [See Physician Procedure note for Specifics] Pain Scale: 0-10 Numeric [Pain] -Is Patient Pain Free? Yes Musculoskeletal: Tenderness Neurological: Neuro grossly intact Psych/Mental Status: Normal Affect, Appropriate Debridement Note Post-Debridement Measurements/Treatment WC - Nurse 2 - General Ulcer CM Notes Start: 02/08/19 10:58 Freq: Status: Active Protocol: Activity Type Activity Date Activity User E-Sign Co-Sign Detail Recorded Client Recorded Date Recorded By Document 02/08/19 11:32 AN [id number] 02/08/19 11:34 AN Document 02/22/19 11:21 [id number] 02/22/19 11:26 02/08/19 02/22/19 11:32 11:21 Wound Center Nurse 2 #5 right yusuf -Time 11:33 11:22 -Correct Patient Yes Yes -Correct Side, Site, Position Yes Yes -Correct Procedure Yes Yes -Procedure Performed Yes Yes -Type of Procedure Debridement Debridement -Clinical Debridement Subcutaneous Subcutaneous -Post Debridement Size (cm) - Length 1.5 0.9 -Post Debridement Size (cm) - Width 0.8 0.4 -Post Debridement Size (cm) - Depth 0.9 0.9 -Total Square Cm 1.20 0.36 -Wound/Ulcer Outcome Not Healed Not Healed -Ulcer Cleansing Rinsed/ Rinsed/ Irrigated with Irrigated with Saline Saline -Foul Odor after Cleansing No No -Bioengineered Tissue No No -Bleeding Controlled with Pressure Pressure -Offloading No Yes -Type of Offloading Knee Walker -Treatment Response Procedure Procedure Tolerated Well Tolerated Well Pain Scale: 0-10 Numeric Is Patient Pain Free? Yes Yes Wound debrided: Right BKA ulcer Type of Debridement: Excisional debridement Anesthesia Used: 5% Lidocaine Gel Depth: Down to and including healthy tissue, in the subcutaneous layer Percentage of wound debrided: 100 Instrument Used: 3mm curette Tissue Removed: The cutaneous tissues look Severity: Limited To Skin Breakdown Amount of bleeding with debridement: Mild Bleeding Controlled with: Pressure Patient tolerated procedure well Assessment/Plan Assessment: 1. Open wound of right let with complication. 2. Infection of amputation stump of right lower extremity. 3. Pain of amuputation stump of right lower extremity. 4. Diabetes mellitus, type 2. 5. Tobacco Abuse disorder Plan: Patient was seen and examined in the wound center today. She recently complained of pain in her right BKA stump that had worsened over the last several months. She states she underwent the right BKA about 4 years ago. About 6 months postop she needed additional surgery with removal of scar tissue. She is also in the process of getting her prosthesis revised as well. On 12/28/18 she had a surgical preparation right BKA stump with incision and drainage and excisional debridement chronic infected seroma anterior aspect of stump and partial ostectomy tibia for osteomyelitis and complex secondary wound closure revision reconstruction. She was sent home with a wound VAC to the right anterior open area. She states that her pain has not been well controlled. She denies any fever. Percocet (14) renewed. OARRS report reviewed, no suspicious activity noted. Stop wound VAC, will start daily Aquacel silver dressing changes. Instructed to place a piece of silver on the lateral aspect of the stump incision to help prevent any maceration of the incision. Pathology from 12/28/18 right tibia bone negative for acute osteomyelitis. The wound cultures of the bone and soft tissue were negative for any organisms. We will renew her doxycycline. Follow up in one week. Code Visit [id number]
[2019-03-01 11:03] VITALS: BP 105/65; PULSE 97; RESP 16; TEMP 36; BMI 32.3
--- NOTE | 2019-03-01 23:25 | PN.PCM_ITS ---
Type of Wound Date of Service: 03/01/19 Chief Complaint: Nonhealing ulcer anterior aspect right BKA stump. History of Wound: Surgery 12/28/18 - 1. 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 2. Partial ostectomy tibia for osteomyelitis. 3. Complex secondary wound closure revision reconstruction. Wound care - Silver. Operative culture - negative. She was discharged on Bactrim DS and Flagyl. Pathology - negative for osteomyelitis. Prealbumin from 12/29/18 was 15.0. Encourage nutritional supplementation with protein to help the healing process. MRI from 12/01/18 showed small rim-enhancing abscess at the anterior lateral subcutaneous tissues. Below-knee amputation without acute osteomyelitis. Mild medial and lateral compartment cartilage loss. Tiny popliteal cyst. Muscle atrophy.. Today she denies fever. Her appetite is ok. Progress of Wound: Improved. - Physical Exam Vital Signs Temp Pulse Resp BP 96.8 F L 97 16 105/65 03/01/19 11:03 03/01/19 11:03 03/01/19 11:03 03/01/19 11:03 Wound Measurements and Assessment WC - Nurse 1 - General Ulcer Measurement Start: 02/08/19 10:58 Freq: Status: Active Protocol: Activity Type Activity Date Activity User E-Sign Co-Sign Detail Recorded Client Recorded Date Recorded By Document 03/01/19 11:03 DV [id number] 03/01/19 11:12 DV 03/01/19 11:03 Wound Center Nurse 1 [Ulcer Assessment] #5 right yusuf -Combined with other wound No -Current Size (cm) - Length 0.5 -Current Size (cm) - Width 0.2 -Current Size (cm) - Depth 0.5 -Total Square Cm 0.10 -Photo Taken No -Epithelialization None Present -Tunneling No -Undermining/Tunneling No -Circular Undermining No -Exudate Amt Small -Exudate Type Yellow/Green -Wound Margin Indistinct, Non -Visible -Granulation Amt None Present (0 %) -Granulation Quality N/A -Slough/Fibrin No -Necrosis Amt Small (1-33%) -Structure Exposed None/Limited to Skin Breakdown -Texture (Love-wound Skin Appearance) Assessed, Scarring -Moisture (Love-wound Skin Appearance Assessed, ) Weeping -Color (Love-wound Skin Appearance) No Abnormality, Assessed, Ecchymosis -Ulcer Cleansing soap -Foul Odor after Cleansing No -Anesthetic Used 4% Lidocaine Solution - Nurse 2 - General Ulcer CM Notes Start: 02/08/19 10:58 Freq: Status: Active Protocol: Activity Type Activity Date Activity User E-Sign Co-Sign Detail Recorded Client Recorded Date Recorded By Document 03/01/19 12:29 [id number] 03/01/19 12:30 03/01/19 12:29 Wound Center Nurse 2 [Procedure/Treatment] -Time 12:30 -Correct Patient Yes -Correct Side, Site, Position Yes -Correct Procedure Yes -Procedure Performed Yes -Type of Procedure Debridement -Clinical Debridement Subcutaneous -Post Debridement Size (cm) - Length 0.5 -Post Debridement Size (cm) - Width 0.2 -Post Debridement Size (cm) - Depth 0.4 -Total Square Cm 0.10 -Wound/Ulcer Outcome Not Healed -Ulcer Cleansing Rinsed/ Irrigated with Saline -Foul Odor after Cleansing No -Bioengineered Tissue No -Bleeding Controlled with Pressure -Offloading No -Treatment Response Procedure Tolerated Well [See Physician Procedure note for Specifics] Pain Scale: 0-10 Numeric [Pain] -Is Patient Pain Free? Yes Debridement Note Post-Debridement Measurements/Treatment - Nurse 2 - General Ulcer CM Notes Start: 02/08/19 10:58 Freq: Status: Active Protocol: Activity Type Activity Date Activity User E-Sign Co-Sign Detail Recorded Client Recorded Date Recorded By Document 02/08/19 11:32 AN [id number] 02/08/19 11:34 AN Document 02/22/19 11:21 [id number] 02/22/19 11:26 Document 03/01/19 12:29 [id number] 03/01/19 12:30 02/08/19 02/22/19 03/01/19 11:32 11:21 12:29 Wound Center Nurse 2 #5 right yusuf -Time 11:33 11:22 12:30 -Correct Patient Yes Yes Yes -Correct Side, Site, Position Yes Yes Yes -Correct Procedure Yes Yes Yes -Procedure Performed Yes Yes Yes -Type of Procedure Debridement Debridement Debridement -Clinical Debridement Subcutaneous Subcutaneous Subcutaneous -Post Debridement Size (cm) - Length 1.5 0.9 0.5 -Post Debridement Size (cm) - Width 0.8 0.4 0.2 -Post Debridement Size (cm) - Depth 0.9 0.9 0.4 -Total Square Cm 1.20 0.36 0.10 -Wound/Ulcer Outcome Not Healed Not Healed Not Healed -Ulcer Cleansing Rinsed/ Rinsed/ Rinsed/ Irrigated with Irrigated with Irrigated with Saline Saline Saline -Foul Odor after Cleansing No No No -Bioengineered Tissue No No No -Bleeding Controlled with Pressure Pressure Pressure -Offloading No Yes No -Type of Offloading Knee Walker -Treatment Response Procedure Procedure Procedure Tolerated Well Tolerated Well Tolerated Well Pain Scale: 0-10 Numeric Is Patient Pain Free? Yes Yes Yes Wound debrided: #5 Anterior aspect right BKA stump. Laterality: Right Wound Grade/Stage: 4. Type of Debridement: Excisional debridement Anesthesia Used: 4% Lidocaine Solution Depth: Down to and including healthy tissue, in the subcutaneous layer Percentage of wound debrided: 100 Instrument Used: 5mm curette Tissue Removed: subcutaneous tissue. Severity: Fat Layer Exposed Amount of bleeding with debridement: Mild Bleeding Controlled with: Pressure Patient tolerated procedure well Assessment/Plan Assessment: 1. Painful right BKA stump. 2. 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 3. 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 4. Diabetes mellitus. 5. PVD. 6. Smoker. 7. History of necrotizing infection. 8. History of diverting colostomy. 9. 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 Plan: Continue the Silver dressing changes daily to the nonhealing ulcer ante rior aspect right BKA stump. She is done with her antibiotics, Bactrim DS and Flagyl from her surgery in December. Her operative culture was negative. The Pathology was negative for osteomyelitis. Her Prealbumin from 12/29/18 was 15.0. Encourage nutritional supplementation with protein to help the healing process. We are awaitng the SNAP VAC approval to be used to quicken the healing process. Follow one week.
== END 2019-03-07 23:59 ==
LOC: WC 10:30
PROVIDERS: Family Provider Internal Medicine; PCP Internal Medicine; Visit Provider Surgery
DX: T87.43 Infection of amputation stump, right lower extremity (principal); T87.40 Infection of amputation stump, unspecified extremity; Y83.8 Other surgical procedures as the cause of abnormal reaction of the patient, or of later complication, without mention of misadventure at the time of the procedure; E11.51 Type 2 diabetes mellitus with diabetic peripheral angiopathy without gangrene; Z72.0 Tobacco use
CPT/HCPCS: 11042

== ENCOUNTER 2019-03-16 15:00 | Outpatient (RCR) | payer MEDICARE, MEDICAID, SELFPAY ==
[2019-03-08 00:51] VITALS: BP 105/65; PULSE 97; RESP 16; TEMP 36
[2019-03-09 15:59] VITALS: BP 113/68; PULSE 96; RESP 16; TEMP 36.3; BMI 32.3
--- NOTE | 2019-03-09 17:16 | PCM.WC.PN ---
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 Current Visit: Yes Code(s): T87.89 - Other complications of amputation stump; L97.919 - Non-pressure chronic ulcer of unspecified part of right lower leg with unspecified severity (2) 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 Status: Chronic Current Visit: Yes Code(s): T87.89 - Other complications of amputation stump; M79.604 - Pain in right leg Comment: right BKA (3) Tobacco abuse Status: Chronic Current Visit: Yes Code(s): Z72.0 - Tobacco use (4) DM2 (diabetes mellitus, type 2) Status: Chronic Current Visit: No Code(s): E11.9 - Type 2 diabetes mellitus without complications Type of Wound Date of Service: 03/09/19 Chief Complaint: Left lower abdomen with non healing sore from a boil that popped a few weeks ago. History of Wound: 48 year old woman presents with pain in her right BKA stump that has worsened over the last several months. She states she underwent the right BKA about 4 years ago. About 6 months postop she needed additional surgery with removal of scar tissue. She is also in the process of getting her prosthesis revised as well. She denies any fever. She denies any recent trauma. She denies any recent infection. She denies any drainage. On 12/28/18 she underwent 1. 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 2. Partial ostectomy tibia for osteomyelitis. 3. Complex secondary wound closure revision reconstruction. She denies any fever or nausea and vomiting today. Progress of Wound: There is improvement to the ulcer on her right BKA stump. Her incision is healing well. - Physical Exam Vital Signs Temp Pulse Resp BP 97.3 F L 96 16 113/68 03/09/19 15:59 03/09/19 15:59 03/09/19 15:59 03/09/19 15:59 General: Alert, Oriented x3, Cooperative HEENT: Atraumatic Oral: Moist Mucosa Lungs: Normal air movement Cardiovascular: Regular rate Extremities: Capillary Refill Less than 3 Seconds, Edema, Peripheral Pulses Normal Skin: Ulcer/ Wound - ulcer right anterior BKA stump Wound Measurements and Assessment WC - Nurse 1 - General Ulcer Measurement Start: 03/09/19 15:59 Freq: Status: Active Protocol: Activity Type Activity Date Activity User E-Sign Co-Sign Detail Recorded Client Recorded Date Recorded By Document 03/09/19 15:59 [id number] 03/09/19 16:06 03/09/19 15:59 Wound Center Nurse 1 [Ulcer Assessment] #5 right yusuf -Combined with other wound No -Current Size (cm) - Length 0.6 -Current Size (cm) - Width 0.2 -Current Size (cm) - Depth 0.1 -Total Square Cm 0.12 -Photo Taken No -Epithelialization Small 1-33% -Tunneling No -Undermining/Tunneling No -Circular Undermining No -Exudate Amt Small -Exudate Type Serous -Wound Margin Distinct, Outline Attached -Granulation Amt None Present (0 %) -Granulation Quality N/A -Slough/Fibrin Yes -Necrosis Amt Large (67-100%) -Necrotic Tissue Type Adherent Slough -Structure Exposed N/A -Texture (Love-wound Skin Appearance) Assessed, Scarring -Moisture (Love-wound Skin Appearance No Abnormality, ) Assessed -Color (Love-wound Skin Appearance) No Abnormality, Assessed -Temperature (Love-wound Skin No Abnormality Appearance) (Pt Warm) -Tenderness on Palpation (Love-wound No Skin Appearance) -Ulcer Cleansing Rinsed/ Irrigated with Saline -Foul Odor after Cleansing No -Anesthetic Used 4% Lidocaine Solution [Edema Assessment] -Lower Limb Edema Present No WC - Nurse 2 - General Ulcer CM Notes Start: 03/09/19 15:59 Freq: Status: Active Protocol: Activity Type Activity Date Activity User E-Sign Co-Sign Detail Recorded Client Recorded Date Recorded By Document 03/09/19 16:18 [id number] 03/09/19 16:19 03/09/19 16:18 Wound Center Nurse 2 [Procedure/Treatment] #5 right yusuf -Time 16:19 -Correct Patient Yes -Correct Side, Site, Position Yes -Correct Procedure Yes -Procedure Performed Yes -Type of Procedure Debridement -Clinical Debridement Subcutaneous -Post Debridement Size (cm) - Length 1 -Post Debridement Size (cm) - Width 0.4 -Post Debridement Size (cm) - Depth 0.6 -Total Square Cm 0.4 -Wound/Ulcer Outcome Not Healed -Ulcer Cleansing Rinsed/ Irrigated with Saline -Foul Odor after Cleansing No -Bioengineered Tissue No -Bleeding Controlled with Pressure -Offloading No -Treatment Response Procedure Tolerated Well [See Physician Procedure note for Specifics] Pain Scale: 0-10 Numeric [Pain] -Is Patient Pain Free? Yes Musculoskeletal: No Tenderness to Palpation of Joints or Extremities Neurological: Neuro grossly intact Psych/Mental Status: Normal Affect, Appropriate Debridement Note Post-Debridement Measurements/Treatment WC - Nurse 2 - General Ulcer CM Notes Start: 03/09/19 15:59 Freq: Status: Active Protocol: Activity Type Activity Date Activity User E-Sign Co-Sign Detail Recorded Client Recorded Date Recorded By Document 03/09/19 16:18 [id number] 03/09/19 16:19 SHAYNA 03/09/19 16:18 Wound Center Nurse 2 #5 right yusuf -Time 16:19 -Correct Patient Yes -Correct Side, Site, Position Yes -Correct Procedure Yes -Procedure Performed Yes -Type of Procedure Debridement -Clinical Debridement Subcutaneous -Post Debridement Size (cm) - Length 1 -Post Debridement Size (cm) - Width 0.4 -Post Debridement Size (cm) - Depth 0.6 -Total Square Cm 0.4 -Wound/Ulcer Outcome Not Healed -Ulcer Cleansing Rinsed/ Irrigated with Saline -Foul Odor after Cleansing No -Bioengineered Tissue No -Bleeding Controlled with Pressure -Offloading No -Treatment Response Procedure Tolerated Well Pain Scale: 0-10 Numeric Is Patient Pain Free? 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 Open wound of right let with complication. 2. Infection of amputation stump of right lower extremity. 3. Pain of amuputation stump of right lower extremity. 4. Diabetes mellitus, type 2. 5. Tobacco Abuse disorder Plan: Patient was seen and examined in the wound center today. She recently complained of pain inn her right BKA stump that had worsened over the last several months. She states she underwent the right BKA about 4 years ago. About 6 months postop she needed additional surgery with removal of scar tissue. She is also in the process of getting her prosthesis revised as well. On 12/28/18 she had a surgical preparation right BKA stump with incision and drainage and excisional debridement chronic infected seroma anterior aspect of stump and partial ostectomy tibia for osteomyelitis and complex secondary wound closure revision reconstruction. She was sent home with a wound VAC to the right anterior open area. The wound VAC was stopped due to difficulty packing the wound. She has been doing daily aquacel silver dressing changes. There is still a small amount of depth to the ulcer. Applied for the SNAP vac and it was approved. Will apply that today. Pathology from 12/28/18 right tibia bone negative for acute osteomyelitis. The wound cultures of the bone and soft tissue were negative for any organisms. Follow up in one week. Code Visit [id number]
[2019-03-16 16:33] VITALS: BP 116/70; PULSE 89; RESP 18; TEMP 36.7; BMI 32.3
--- NOTE | 2019-03-16 17:28 | PCM.WC.PN ---
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 Current Visit: Yes Code(s): T87.89 - Other complications of amputation stump; L97.919 - Non-pressure chronic ulcer of unspecified part of right lower leg with unspecified severity (2) 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 Status: Chronic Current Visit: Yes Code(s): T87.89 - Other complications of amputation stump; M79.604 - Pain in right leg Comment: right BKA (3) Tobacco abuse Status: Chronic Current Visit: Yes Code(s): Z72.0 - Tobacco use (4) DM2 (diabetes mellitus, type 2) Status: Chronic Current Visit: Yes Code(s): E11.9 - Type 2 diabetes mellitus without complications Type of Wound Date of Service: 03/16/19 Chief Complaint: Left lower abdomen with non healing sore from a boil that popped a few weeks ago. History of Wound: 48 year old woman presents with pain in her right BKA stump that has worsened over the last several months. She states she underwent the right BKA about 4 years ago. About 6 months postop she needed additional surgery with removal of scar tissue. She is also in the process of getting her prosthesis revised as well. She denies any fever. She denies any recent trauma. She denies any recent infection. She denies any drainage. On 12/28/18 she underwent 1. 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 2. Partial ostectomy tibia for osteomyelitis. 3. Complex secondary wound closure revision reconstruction. She denies any fever or nausea and vomiting today. Wound care is SNAP vac. Progress of Wound: Improvement - Physical Exam Vital Signs Temp Pulse Resp BP 98.0 F 89 18 116/70 03/16/19 16:33 03/16/19 16:33 03/16/19 16:33 03/16/19 16:33 General: Alert, Oriented x3 HEENT: Atraumatic Oral: Moist Mucosa Lungs: Normal air movement Cardiovascular: Regular rate Extremities: Capillary Refill Less than 3 Seconds, Edema - right stump, Peripheral Pulses Normal, Tenderness - Right stump Skin: Ulcer/ Wound - Right anterior stump ulcer improving Wound Measurements and Assessment WC - Nurse 1 - General Ulcer Measurement Start: 03/09/19 15:59 Freq: Status: Active Protocol: Activity Type Activity Date Activity User E-Sign Co-Sign Detail Recorded Client Recorded Date Recorded By Document 03/16/19 16:33 DV [id number] 03/16/19 16:42 DV 03/16/19 16:33 Wound Center Nurse 1 [Ulcer Assessment] #5 right yusuf -Combined with other wound No -Current Size (cm) - Length 0.8 -Current Size (cm) - Width 0.4 -Current Size (cm) - Depth 0.5 -Total Square Cm 0.32 -Photo Taken No -Epithelialization None Present -Tunneling No -Undermining/Tunneling No -Circular Undermining No -Classification - Thickness Full Thickness without Exposed Support Structure -Exudate Amt Small -Exudate Type Serosanguineous -Wound Margin Flat & Intact -Granulation Amt None Present (0 %) -Granulation Quality N/A -Slough/Fibrin Yes -Necrosis Amt Medium (34-66%) -Necrotic Tissue Type Adherent Slough -Structure Exposed None/Limited to Skin Breakdown -Texture (Love-wound Skin Appearance) Assessed, Scarring -Moisture (Love-wound Skin Appearance No Abnormality, ) Assessed -Color (Love-wound Skin Appearance) Assessed,Palor -Temperature (Love-wound Skin No Abnormality Appearance) (Pt Warm) -Foul Odor after Cleansing No -Anesthetic Used 5% Lidocaine Gel WC - Nurse 2 - General Ulcer CM Notes Start: 03/09/19 15:59 Freq: Status: Active Protocol: Activity Type Activity Date Activity User E-Sign Co-Sign Detail Recorded Client Recorded Date Recorded By Document 03/16/19 17:05 MW [id number] 03/16/19 17:06 MW 03/16/19 17:05 Wound Center Nurse 2 [Procedure/Treatment] -Time 17:05 -Correct Patient Yes -Correct Side, Site, Position Yes -Correct Procedure Yes -Procedure Performed Yes -Type of Procedure Debridement -Clinical Debridement Subcutaneous -Post Debridement Size (cm) - Length 0.5 -Post Debridement Size (cm) - Width 0.3 -Post Debridement Size (cm) - Depth 0.5 -Total Square Cm 0.15 -Wound/Ulcer Outcome Not Healed -Ulcer Cleansing Rinsed/ Irrigated with Saline -Foul Odor after Cleansing No -Bioengineered Tissue No -Bleeding Controlled with Pressure -Offloading No -Treatment Response Procedure Tolerated Well [See Physician Procedure note for Specifics] Pain Scale: 0-10 Numeric [Pain] -Is Patient Pain Free? Yes Musculoskeletal: No Tenderness to Palpation of Joints or Extremities Neurological: Neuro grossly intact Psych/Mental Status: Normal Affect, Appropriate Debridement Note Post-Debridement Measurements/Treatment WC - Nurse 2 - General Ulcer CM Notes Start: 03/09/19 15:59 Freq: Status: Active Protocol: Activity Type Activity Date Activity User E-Sign Co-Sign Detail Recorded Client Recorded Date Recorded By Document 03/09/19 16:18 [id number] 03/09/19 16:19 Document 03/16/19 17:05 MW [id number] 03/16/19 17:06 03/09/19 03/16/19 16:18 17:05 Wound Center Nurse 2 #5 right yusuf -Time 16:19 17:05 -Correct Patient Yes Yes -Correct Side, Site, Position Yes Yes -Correct Procedure Yes Yes -Procedure Performed Yes Yes -Type of Procedure Debridement Debridement -Clinical Debridement Subcutaneous Subcutaneous -Post Debridement Size (cm) - Length 1 0.5 -Post Debridement Size (cm) - Width 0.4 0.3 -Post Debridement Size (cm) - Depth 0.6 0.5 -Total Square Cm 0.4 0.15 -Wound/Ulcer Outcome Not Healed Not Healed -Ulcer Cleansing Rinsed/ Rinsed/ Irrigated with Irrigated with Saline Saline -Foul Odor after Cleansing No No -Bioengineered Tissue No No -Bleeding Controlled with Pressure Pressure -Offloading No No -Treatment Response Procedure Procedure Tolerated Well Tolerated Well Pain Scale: 0-10 Numeric Is Patient Pain Free? 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 Open wound of right let with complication. 2. Infection of amputation stump of right lower extremity. 3. Pain of amuputation stump of right lower extremity. 4. Diabetes mellitus, type 2. 5. Tobacco Abuse disorder Plan: Patient was seen and examined in the wound center today. She recently complained of pain inn her right BKA stump that had worsened over the last several months. She states she underwent the right BKA about 4 years ago. About 6 months postop she needed additional surgery with removal of scar tissue. She is also in the process of getting her prosthesis revised as well. On 12/28/18 she had a surgical preparation right BKA stump with incision and drainage and excisional debridement chronic infected seroma anterior aspect of stump and partial ostectomy tibia for osteomyelitis and complex secondary wound closure revision reconstruction. She was sent home with a wound VAC to the right anterior open area. The wound VAC was stopped due to difficulty packing the wound. She has been doing daily aquacel silver dressing changes. There is still a small amount of depth to the ulcer. Applied for the SNAP vac and it was approved. Continue SNAP vac. There has been improvement over the past week with it. Pathology from 12/28/18 right tibia bone negative for acute osteomyelitis. The wound cultures of the bone and soft tissue were negative for any organisms. Her pain management is controlling her pain medications. Follow up in one week. Code Visit [id number]
== END 2019-04-07 23:59 ==
LOC: WC 15:00
PROVIDERS: Family Provider Internal Medicine; PCP Internal Medicine; Visit Provider Surgery
DX: T87.89 Other complications of amputation stump (principal); Y83.8 Other surgical procedures as the cause of abnormal reaction of the patient, or of later complication, without mention of misadventure at the time of the procedure; E11.51 Type 2 diabetes mellitus with diabetic peripheral angiopathy without gangrene; Z72.0 Tobacco use; E11.622 Type 2 diabetes mellitus with other skin ulcer; L97.811 Non-pressure chronic ulcer of other part of right lower leg limited to breakdown of skin
CPT/HCPCS: 11042; 97607

== ENCOUNTER 2019-03-22 13:22 | Inpatient (IN) | payer MEDICAID, SELFPAY ==
[2019-03-22] VITALS (14 sets, daily range): BP systolic 103–142; BP diastolic 66–82; PULSE 71–86; RESP 16–18; TEMP 36.4–37; O2SAT 82–100; BMI 34.7; BMI 34.6
--- NOTE | 2019-03-22 08:27 | PCM.HP.BLA ---
Problem List (1) Status post colostomy Status: Chronic History and Physical Date of Admission: 03/22/19 Intake Vital Signs 02/26/19 Height 5 ft 8 in 02/26/19 Weight: 210 lb 9 oz 02/26/19 Body Mass Index (BMI) 32.0 02/26/19 Blood Pressure 119/73 02/26/19 Blood Pressure Location Rt brachial 02/26/19 Blood Pressure Position Sitting 02/26/19 Respiratory Rate 18 02/26/19 Pulse Rate 94 02/26/19 Pulse Ox 96 Intake Visit Reasons: Discuss Colostomy Reversal Chief Complaint: discuss colostomy reversal Plastic Roller Required: No Is patient in pain?: No Allergies fentanyl Allergy (Verified 02/03/19 15:49) Other morphine Adverse Reaction (Verified 02/03/19 15:49) Upset Stomach Medications Baclofen 10 mg PO TID 04/26/16 [History Confirmed 02/26/19] Duloxetine Hcl [Cymbalta] 60 mg PO BID #60 cap 01/30/18 [Rx Confirmed 02/26/19] pantoprazole 40 mg tablet,delayed release 40 mg PO QDAY 03/04/18 [History Confirmed 02/26/19] insulin aspart (U-100) 100 unit/mL (3 mL) subcutaneous pen 12 unit SC TIDAC #15 ml 05/08/18 [Rx Confirmed 02/26/19] pregabalin 100 mg capsule 100 mg PO TID 07/22/18 [History Confirmed 02/26/19] clonidine HCl 0.1 mg tablet 0.1 mg PO QHS tab 08/24/18 [History Confirmed 02/26/19] hydrocodone 5 mg-acetaminophen 325 mg tablet 1 tab PO Q6H PRN 10/19/18 [History Confirmed 02/26/19] loratadine 10 mg capsule 10 mg PO DAILY #90 cap 10/19/18 [Rx Confirmed 02/26/19] dulaglutide 1.5 mg/0.5 mL subcutaneous pen injector 1.5 mg SC QWEEK #2 ml 10/26/18 [Rx Confirmed 02/26/19] buspirone 10 mg tablet 10 mg PO TID #90 tab 11/04/18 [Rx Confirmed 02/26/19] insulin detemir (U-100) 100 unit/mL (3 mL) subcutaneous pen 50 unit SC QHS #15 ml 11/16/18 [Rx Confirmed 02/26/19] Clopidogrel Bisulfate [Plavix] 75 mg PO DAILY tab 12/31/18 [Rx] Diazepam [Valium] 5 mg PO 4X/DAY PRN PRN #30 tab 12/31/18 [Rx Confirmed 02/26/19] Docusate Sodium [Colace] 100 mg PO BID #60 cap 12/31/18 [Rx Confirmed 02/26/19] Insulin Glargine [Lantus SoloStar Pen] 50 units SUBCUT QHS pen 12/31/18 [Rx Confirmed 02/26/19] Insulin Lispro [Humalog KwikPen] 12 unit SUBCUT TIDAC insuln.pen 12/31/18 [Rx] Insulin Lispro [Humalog KwikPen] See Protocol SUBCUT ACHS insuln.pen 12/31/18 [Rx Confirmed 02/26/19] Potassium Chloride [K-Dur] 40 meq PO DAILYCM tab 12/31/18 [Rx Confirmed 02/26/19] Smz/Tmp Ds [Bactrim Ds] 1 tab PO BID #20 tab 12/31/18 [Rx] metroNIDAZOLE [Flagyl] 500 mg PO TID #21 tab 12/31/18 [Rx Confirmed 02/26/19] proMETHazine tablet [Phenergan tablet] 25 mg PO 4X/DAY PRN PRN #30 tab 12/31/18 [Rx Confirmed 02/26/19] shower chair #1 ea 01/05/19 [Rx Confirmed 02/26/19] wheelchair See Dose Instructions .ROUTE .MEDSUPPLY #1 ea 01/05/19 [Rx Confirmed 02/26/19] mupirocin 2 % topical ointment 1 applic TOPICAL BID #30 g 01/21/19 [Rx Confirmed 02/26/19] Doxycycline 100 mg PO BID #10 cap 02/03/19 [Rx Confirmed 02/26/19] pen needle, diabetic 29 gauge x 1/2 See Dose Instructions .ROUTE .MEDSUPPLY #100 ea 02/03/19 [Rx Confirmed 02/26/19] atorvastatin 40 mg tablet See Rx Instructions .ROUTE .COMPLEX #90 tablet 02/23/19 [Rx Confirmed 02/26/19] ranitidine 150 mg tablet 150 mg PO BID #180 tab 02/23/19 [Rx Confirmed 02/26/19] clopidogrel 75 mg tablet See Rx Instructions .ROUTE .COMPLEX #90 tablet 02/24/19 [Rx Confirmed 02/26/19] Is last menstrual period known: No Post menopausal: Yes Patient : No PFSH Medical History Anxiety (Acute) Diabetes (Acute) Neuropathy (Acute) Raynaud disease (Acute) Vascular disease (Acute) Surgical History Amputation of right lower extremity (Resolved) History of cholecystectomy (Resolved) Family History Father , 2014 Cancer Mother Hypertension Fibromyalgia Thyroid disorder Brother , 2008 Diabetes Grandmother , maternal Myocardial infarction Grandfather , Maternal Cancer Social History (Updated 02/26/19 @ 15:13 by Jim Meraz MD) Smoking Status: Former smoker Tobacco: How many years used: 20 how long ago did patient quit smokin alcohol intake: never substance use type: does not use what type of physical activity do you participate in: walking additional social history: DOES USE ASPIRIN DOES USE IBUPROFEN HPI HPI HPI: BERTRAM GARY, is a 48 F who presents to the office today for HPI HPI Surgical H&P: Yes HPI: BERTRAM GARY, is a 48 F who presents to the office today for colostomy reversal. 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 She also had a right below the knee amputation in the interim. Patient's buttock has fully healed and she is here for reversal of her loop colostomy. ROS General General: Yes weight change; no appetite, fatigue, colon cancer, breast cancer or weakness HEENT HEENT: No difficulty swallowing, eye injury, eye surgery, swollen glands or hoarseness Endo Endocrine: Yes diabetes mellitus; no thyroid disease, thyroid cancer, Hair loss, heat intolerance or cold intolerance Cardio Cardiovascular: Yes murmur; no pacemaker, heart disease, atrial fibrillation, high blood pressure, heart attack, heart stent, palpitations, shortness of breat with exertion or chest pain Psych Psychiatric: Yes depression and anxiety; no hearing voices Resp Respiratory: No shortness of breath, No sleep apnea, No cough, No COPD, No asthma, No emphysema, No wheezing Gastro Gastrointestinal: No abdominal pain, No nausea or vomiting, No diarrhea, No constipation, No blood in stool, Yes acid reflux, No hemorrhoids, No ulcers, No gallbladder problem, No black,tarry stools Monico Hematologic: Yes blood thinners, No blood disorders, No bleeding, No anemia, Yes blood clots Neuro Neurologic: No weakness Exam Const General: cooperative Orientation: alert, oriented x3 HENMT Head: normal to inspection Ears: hearing grossly normal bilaterally Eyes General: appearance normal, both eyes and all related structures Visual Lam: normal visual lam by confrontation Neck Neck: normal visual inspection Chest Chest palpation & inspection: normal inspection of the chest Resp Effort & Inspection: normal respiratory effort Auscultation: clear to auscultation bilaterally Cardio Rate: regular rate Rhythm: regular rhythm Heart Sounds: murmur GI Inspection: non-distended Palpation: soft, nontender Other: Left lower quadrant loop colostomy Musc Cervical Spine: normal cervical lordosis, cervical ROM normal Skin General: no rashes or lesions noted Neuro General: alert, oriented x3 Cranial Nerves: CN's II-XI intact bilaterally Cognition: normal cognition Extrem General: full ROM Other: Right lower extremity BKA with nonhealing wound Psych Appearance: grossly normal Affect: normal affect Assessment & Plan Problems 1. Colostomy in place Z93.3 Plan The patient had diverting loop colostomy due to a buttock wound for fecal diversion. This wound is fully healed and it was recommended that the patient have reversal of colostomy. I discussed reversal of loop colostomy with the patient in detail. I discussed that usually this can be fixed locally and reversed through the colostomy incision. If this is unable to be done I would perform a laparoscopic reversal. If this was also unsuccessful I described that I would have to convert to an open procedure. I discussed that I would like the patient to have a mechanical and antibiotic bowel prep prior to surgery. The patient also needs to stop Plavix for 5 days before surgery. I discussed that there were risks of bleeding, infection, injury to underlying bowel, risk of anastomotic leak. I also described the risk of subsequent hernia at the prior colostomy site. Patient understands all the risks and wants to proceed with surgery. Jim Meraz MD Pager: [facility] [address] [place] [address] [address] [place] [address] Office:
[2019-03-22 10:16] LABS: Hematocrit 40.8 % (37-47); Hemoglobin 13.7 g/dl (12.0-15.0); Mean Corp Hgb Conc 33.6 g/gl (32-36); Mean Corpuscular Hgb 29.7 pg (27.0-32.0); Mean Corpuscular Volume 88.3 fL (81-99); Mean Platelet Vol. 10.5 fl (6.2-12.0); Platelet Count 273 K/mm3 (150-450); RBC Distribution Width CV 14.9 % (11.6-14.6); Red Blood Count 4.62 M/mm3 (4.2-5.4); Scan Indicated on CBC? Y/N NO; White Blood Count 5.6 K/mm3 (4.4-11.0)
[2019-03-22 10:29] LABS: Anion Gap 7 (5-15); BUN 13 mg/dL (7-18); BUN/Creat Ratio 18.3 RATIO (10-20); Calcium,Total 8.4 mg/dL (8.5-10.1); Chloride 108 mmol/L (98-107); Creatinine, Serum 0.71 mg/dL (0.55-1.02); EST Glomerular Filtration Rate 94 mL/min (>60); Est Glom Filt Rate - Afr Amer 113 mL/min (>60); Estimated Creatinine Clearance 99.88 ml/min; Glucose 275 mg/dL (74-106); Potassium 3.9 mmol/L (3.5-5.1); Sodium Level 140 mmol/L (136-145)
[2019-03-22 10:31] LABS: Bedside Glucose 269 mg/dL (70-110)
[2019-03-22 12:12] LABS: Hemoglobin A1c 9.4 % (4.2-6.3)
[2019-03-22] MEDS: Bupiv/Epi 0.25% 30 ML Vial (13:00)
[2019-03-22 13:46] LABS: Bedside Glucose 250 mg/dL (70-110)
--- NOTE | 2019-03-22 15:40 | PCM.OPRPT ---
Problem List (1) Status post colostomy Status: Chronic Report of Operation Date of Procedure: 03/22/19 Pre-Operative Diagnosis: History of nonhealing ulcer and loop colostomy Post-Operative Diagnosis: Same Surgery/Procedure Performed:: Reversal of loop colostomy Description of Procedure: The patient was taken to the operating room and general anesthesia was induced. The abdomen was prepped and draped in usual sterile fashion. Next an incision was made around the left lower quadrant colostomy through the skin. The colon was bluntly dissected from the surrounding subcutaneous tissue. The fascia was encountered. Next a ring of skin was removed from the colon where the colostomy was located and the enterotomy was closed with a canal fashion 3-0 chromic suture starting at either end and meeting in the middle. Next the suture line was imbricated with interrupted 3-0 silk sutures. There was adequate lumen after closure of the colon. Next the colon was dissected free from the fascia and a finger was used to sweep below the fascia intra-abdominally. Connective tissue surrounding the colon was sharply dissected free until the colon was fully mobilized from the muscle and subcutaneous tissue. The colon was delivered through the incision and inspected once more. There were no serosal defects or leakage from the colon. The colon was then reduced back into the abdomen. The posterior rectus sheath was closed with a running 0 PDS suture. Next the anterior rectus sheath was closed with 2 running 0 PDS sutures starting at either end and meeting in the middle. Next the subcutaneous tissue was irrigated and suctioned and the skin incision and subcutaneous tissue were packed with a Betadine soaked Kerlix. ABD was applied as well as dressings. Patient was brought to PACU in stable condition. - Admit VTE Documentation VTE Mechan Device Prophylaxis: SCD's
[2019-03-22] MEDS: HYDROmorphone 1 MG/ML Syringe IV ×4 (15:43→22:20)
[2019-03-22] MEDS: Pregabalin 50 MG Capsule 100 MG PO ×2 (15:43→22:16)
[2019-03-22] MEDS: 0.9% Normal Saline 1,000 ML 75 ML IV (16:49)
[2019-03-22] MEDS: Insulin Lispro 100 UNIT/ML INSULN.PEN SC ×2 (16:56→22:30)
--- NOTE | 2019-03-22 16:57 | PN_ITS ---
Subjective: Patient is a 48-year-old female with a past medical history as listed. She was admitted for colostomy reversal by general surgery. She had said procedure on 03/22/2019. After surgery, pain since pain was difficult to control and so hospitalist service was consulted to help with pain control. Patient seen and examined. Complains of pain in her abdomen at the site of the surgery and rates it at 10 out of 10. She is currently on IV Dilaudid and states pain is still not controlled. She denies any fever or chills, palpitations or dizziness, r eview of systems otherwise negative. She does have a history of chronic pain from right below-knee amputation on account of necrotizing fasciitis. Review of systems is otherwise negative. Labs and vitals reviewed. Vitals/I&O's: Vital Signs Temp Pulse Resp BP Pulse Ox 98.6 F 84 16 103/68 97 03/22/19 15:52 03/22/19 15:52 03/22/19 15:52 03/22/19 15:52 03/22/19 15:52 Oxygen Flow Rate (L/min) 2 Oxygen Delivery Method Room Air Weight: 227 lb 15.327 oz Body Mass Index (BMI) 34.6 Finger Stick Blood Glucose 250 Intake and Output for Last 24 Hours 03/20/19 03/21/19 03/22/19 23:59 23:59 23:59 Intake Total 1600 / 1600 Balance 1600 / 1600 General: Alert, Oriented x3, Cooperative, No apparent distress, - - Looks uncomfortable due to pain HEENT: Atraumatic, PERRLA, EOMI, Normocephalic Oral: Moist Mucosa Neck: Supple, No JVD, Negative Carotid Bruits Lungs: Clear to auscultation, Normal air movement, No rhonchi, No wheeze, No rales Cardiovascular: Regular rate, Regular Rhythm, Normal S1, Normal S2, No murmurs Abdomen: - - dressing over abdominal surgical site. Reduced bowel sounds Extremities: No clubbing, No cyanosis, No edema, Capillary Refill Less than 3 Seconds Skin: No rashes, No breakdown Musculoskeletal: No Tenderness to Palpation of Joints or Extremities, - - right BKA. has a wound vac on right BKA Lymphatic: No Cervical, Supraclavicular, or Inguinal Adenopathy Neurological: Cranial nerves II-XII grossly intact, Neuro grossly intact, Motor Exam 5/5 strength throughout Psych/Mental Status: Normal Affect, Appropriate, Alert and oriented to time, place, person, mood and affect Laboratory Results 03/22/19 10:05: WBC 5.6, RBC 4.62, Hgb 13.7, Hct 40.8, MCV 88.3, MCH 29.7, MCHC 33.6, RDW 14.9 H, RDW Differential 48.0 H, Plt Count 273, MPV 10.5 03/22/19 10:05: Sodium 140, Potassium 3.9, Chloride 108 H, Carbon Dioxide 25.0, Anion Gap 7, BUN 13, Creatinine 0.71, Estim Creat Clear Calc 99.88, Est GFR (MDRD) Af Amer 113, Est GFR (MDRD) Non-Af 94, BUN/Creatinine Ratio 18.3, Glucose 275 H, Calcium 8.4 L 03/22/19 10:05: Hemoglobin A1c 9.4 H 03/22/19 10:20: POC Glucose 269 H 03/22/19 13:40: POC Glucose 250 H Current Medications Acetaminophen (Tylenol) 650 mg PO Q6H PRN PRN PRN Reason: PAIN Hydrocodone Bitart/Acetaminophen ([place] 5mg-325mg) 1 tablet PO Q6H PRN PRN Reason: PAIN Atorvastatin Calcium (Lipitor) 40 mg PO QHS [facility] Baclofen (Lioresal) 10 mg PO BID [facility] Clonidine (Catapres) 0.1 mg PO QHS [facility] Docusate Sodium (Colace) 100 mg PO BID PRN PRN Reason: Constipation Duloxetine HCl (Cymbalta) 60 mg PO BID [facility] Famotidine (Pepcid) 20 mg PO BID [facility] Hydromorphone HCl (Dilaudid Inj) 1 mg IV Q2H PRN PRN PRN Reason: SEVERE PAIN (6-10/10) Last Admin: 03/22/19 15:43 Dose: 1 mg Documented by: Sodium Chloride () 1,000 mls @ 75 mls/hr IV .[id number] [facility] Insulin Glargine (Lantus (Bkc)) 50 units SC QHS [facility] Insulin Human Lispro (Humalog Kwikpen (Bkc)) 0 unit SC ACHS [facility]; Protocol Ketorolac Tromethamine (Toradol) 15 mg IV Q8 [facility] Stop: 03/24/19 22:01 Loratadine (Claritin) 10 mg PO DAILY [facility] Ondansetron HCl (Zofran) 4 mg IV Q6H PRN PRN PRN Reason: NAUSEA/VOMITING Pantoprazole Sodium (Protonix) 40 mg PO DAILY [facility] Pregabalin (Lyrica) 100 mg PO TID [facility] Last Admin: 03/22/19 15:43 Dose: 100 mg Documented by: Medical Necessity - Tobacco Use Smoking Status: Current every day smoker Tobacco Use: Cigarettes Assessment/Plan All Active Problems (Last Reviewed 02/26/19 @ 13:24 by Breana Lantigua) Skin ulcer of abdomen (Acute) Vulvovaginal candidiasis (Acute) Type 2 diabetes mellitus with other skin ulcer (Acute) Skin flap infection (Acute) Osteomyelitis (Acute) 1. Intractable abdominal pain s/p reversal of loop colostomy * currently on tylenol, [place] and dilaudid 1mg every 2 hours as needed as well as IV ketorolac 15mg q8 * will maintain pain meds as it is for now, as patient was a bit drowsy during review. * I suspect there may be an element of dependence on narcotics * 2. S/p reversal of loop colostomy: management as per general surgery 3. Diabetes mellitus: ISS. Acccuchecks ACHS. 4. Right BKA due to necrotising fasciitis: * has wound vac in place. Per patient and her , she is due to have wound vac removed tomorrow. Primary team to decide about consulting wound care or to have patient follow up with plastic surgery on outpatient basis. 5. Hyperlipidemia: On statin. 6. Diabetic Neuropathy: On baclofen 7. History of Raynaud disease: stable 8. hypertension: on clonidine. 9. Anxiety and depression: on cymbalta Thank you for the courtesy of the consult. We will continue to follow with you. Code Visit OBSV E&M: 49162 Subsequent observation care L2
[2019-03-22 17:56] LABS: Bedside Glucose 231 mg/dL (70-110)
[2019-03-22] MEDS: 0.9% NaCl Peripheral Flush Adult/Peds IV (18:14)
[2019-03-22] MEDS: Baclofen 10 MG Tablet PO (21:49)
[2019-03-22] MEDS: DULoxetine Hcl 60 MG Capsule PO (21:50)
[2019-03-22] MEDS: Ketorolac 15 MG/ML Vial IV (21:50)
[2019-03-22] MEDS: cloNIDine HCl 0.1 MG Tablet PO (21:50)
[2019-03-22] MEDS: Atorvastatin Calcium 40 MG Tablet PO (21:50)
[2019-03-22] MEDS: Famotidine 20 MG Tablet PO (21:50)
[2019-03-22] MEDS: Acetaminophen 325 MG Tablet 650 MG PO (23:54)
[2019-03-22] MEDS: HYDROcodone Bitartrate/Apap 5/325 Tablet PO (23:54)
[2019-03-23] MEDS: HYDROmorphone 1 MG/ML Syringe IV ×11 (00:22→22:55)
[2019-03-23 01:49] VITALS: BP 93/61; PULSE 81; RESP 16; TEMP 36.9; O2SAT 94
[2019-03-23 02:06] LABS: Bedside Glucose 316 mg/dL (70-110)
[2019-03-23] MEDS: 0.9% Normal Saline 1,000 ML 75 ML IV ×2 (05:01→16:28)
[2019-03-23] MEDS: Ketorolac 15 MG/ML Vial IV ×3 (05:01→21:36)
[2019-03-23] MEDS: Pregabalin 50 MG Capsule 100 MG PO ×3 (05:01→21:37)
[2019-03-23 05:53] LABS: Absolute Lymphocyte Count 0.86 X10^3/ul (0.83-4.51); Absolute Neutrophil Count 3.2 X10^3/uL (2.0-7.7); Basophil# 0.04 X10^3/uL; Basophil% 0.9 % (0-1); Eosinophils% 4.3 % (0-5); Hematocrit 37.4 % (37-47); Hemoglobin 11.9 g/dl (12.0-15.0); Lymphocyte # 0.86 X10^3/ul (4.0); Lymphocyte % 18.5 % (19-41); Mean Corp Hgb Conc 31.8 g/gl (32-36); Mean Corpuscular Volume 91.2 fL (81-99); Mean Platelet Vol. 10.6 fl (6.2-12.0); Monocyte# 0.34 X10^3/uL; Monocyte% 7.3 % (0-10); Neutrophil # 3.19 X10^3/uL (2.7-7.7); Neutrophil % 68.8 % (47-70); Platelet Count 217 K/mm3 (150-450); RBC Distribution Width SD 49.4 fl (35.1-43.9); White Blood Count 4.6 K/mm3 (4.4-11.0)
[2019-03-23 06:02] LABS: POSITIVE COUNT NO; POSITIVE DIFFERENTIAL NO; POSITIVE MORPHOLOGY NO
[2019-03-23 06:15] LABS: Anion Gap 2 (5-15); BUN 8 mg/dL (7-18); BUN/Creat Ratio 11.3 RATIO (10-20); Calcium,Total 7.9 mg/dL (8.5-10.1); Chloride 108 mmol/L (98-107); Creatinine, Serum 0.71 mg/dL (0.55-1.02); EST Glomerular Filtration Rate 94 mL/min (>60); Est Glom Filt Rate - Afr Amer 114 mL/min (>60); Estimated Creatinine Clearance 99.88 ml/min; Glucose 147 mg/dL (74-106); Potassium 3.6 mmol/L (3.5-5.1); Sodium Level 139 mmol/L (136-145)
--- NOTE | 2019-03-23 06:35 | PN_ITS ---
Subjective: Patient with notable ongoing alberto discomfort overnight serially using her IV narcotic therapy and noting that the oral regimen was ineffective. Discussed options at length this morning as patient has noted allergy to morphine and fentanyl but states that this is mostly GI upset and was willing to retrial fentanyl. She states that the medication sometimes do also make her irritable. Patient with back to right stump with need for change today which was discussed with wound care however do not have that type therefore dressing takedown will be performed and she will follow-up outpatient with wound care. Patient denies passing any flatus or bowel movements at this time. Patient denies fevers, chills, nausea, emesis, chest pain or dyspnea. Objective: Physical Examination: General: awake, alert, oriented x 3 and cooperative, seated upright in bed, irritable, notes ongoing discomfort to the abdomen. Skin: normal color, turgor, no icterus, cyanosis, status post ostomy reversal with left lower quadrant dressing in place, old blood absorbs to dressing but no current. HEENT: AT/NC, EOMI, PERRLA, mildly dry MM. Lungs: CTA bilaterally, moderate effort, moderate decrease BL bases, no rales, ronchi or wheezing. Heart: Regular rate and rhythm; no gallop, rub audible. Abdomen: soft, obese, recent ostomy reversal, left lower quadrant dressing in place, expected tenderness to palpation diffusely, worse left lower quadrant region, hypoactive bowel sounds, moderately distended Extremities: no cyanosis, clubbing, s/p R BKA w/ VAC currently in place. Neurological: patient awake, alert, oriented x 3; cognitive function intact; pupils equally reactive to light and accomodation; cranial nerves II-XII grossly normal, moving all 4 extremities although some limitation given recent operative intervention, status post right BKA with VAC in place as noted, strength currently moderately to severely global decrease. Psychiatric: affect appears irritable, no acute evidence of depressive or anxiety feelings. Vitals/I&O's: Vital Signs Temp Pulse Resp BP Pulse Ox 98.4 F 81 16 93/61 94 03/23/19 01:49 03/23/19 01:49 03/23/19 01:49 03/23/19 01:49 03/23/19 01:49 Oxygen Flow Rate (L/min) 2 Oxygen Delivery Method Room Air Weight: 227 lb 15.327 oz Body Mass Index (BMI) 34.6 Finger Stick Blood Glucose 250 Intake and Output for Last 24 Hours 03/21/19 03/22/19 03/23/19 23:59 23:59 23:59 Intake Total 1600 / 1600 1517 / 1517 Output Total 950 / 950 Balance 1600 / 1600 567 / 567 Laboratory Results 03/22/19 10:05: WBC 5.6, RBC 4.62, Hgb 13.7, Hct 40.8, MCV 88.3, MCH 29.7, MCHC 33.6, RDW 14.9 H, RDW Differential 48.0 H, Plt Count 273, MPV 10.5 03/22/19 10:05: Sodium 140, Potassium 3.9, Chloride 108 H, Carbon Dioxide 25.0, Anion Gap 7, BUN 13, Creatinine 0.71, Estim Creat Clear Calc 99.88, Est GFR (MDRD) Af Amer 113, Est GFR (MDRD) Non-Af 94, BUN/Creatinine Ratio 18.3, Glucose 275 H, Calcium 8.4 L 03/22/19 10:05: Hemoglobin A1c 9.4 H 03/22/19 10:20: POC Glucose 269 H 03/22/19 13:40: POC Glucose 250 H 03/22/19 16:52: POC Glucose 231 H 03/22/19 22:27: POC Glucose 316 H 03/23/19 05:25: WBC 4.6, RBC 4.10 L, Hgb 11.9 L, Hct 37.4, MCV 91.2, MCH 29.0, MCHC 31.8 L, RDW 15.0 H, RDW Differential 49.4 H, Plt Count 217, MPV 10.6, Immature Gran % (Auto) 0.200, Neut % (Auto) 68.8, Lymph % (Auto) 18.5 L, [place] % (Auto) 7.3, Eos % (Auto) 4.3, Baso % (Auto) 0.9, Absolute Neuts (auto) 3.2, Absolute Lymphs (auto) 0.86, Total Counted Not Reportable 03/23/19 05:25: Sodium 139, Potassium 3.6, Chloride 108 H, Carbon Dioxide 29.0, Anion Gap 2 L, BUN 8, Creatinine 0.71, Estim Creat Clear Calc 99.88, Est GFR (MDRD) Af Amer 114, Est GFR (MDRD) Non-Af 94, BUN/Creatinine Ratio 11.3, Glucose 147 H, Calcium 7.9 L Current Medications Acetaminophen (Tylenol) 650 mg PO Q6H PRN PRN PRN Reason: PAIN Last Admin: 03/22/19 23:54 Dose: 650 mg Documented by: Hydrocodone Bitart/Acetaminophen (Weems 5mg-325mg) 1 tablet PO Q6H PRN PRN Reason: PAIN Last Admin: 03/22/19 23:54 Dose: 1 tablet Documented by: Atorvastatin Calcium (Lipitor) 40 mg PO QHS [facility] Last Admin: 03/22/19 21:50 Dose: 40 mg Documented by: Baclofen (Lioresal) 10 mg PO BID [facility] Last Admin: 03/22/19 21:49 Dose: 10 mg Documented by: Clonidine (Catapres) 0.1 mg PO QHS [facility] Last Admin: 03/22/19 21:50 Dose: 0.1 mg Documented by: Docusate Sodium (Colace) 100 mg PO BID PRN PRN Reason: Constipation Duloxetine HCl (Cymbalta) 60 mg PO BID [facility] Last Admin: 03/22/19 21:50 Dose: 60 mg Documented by: Famotidine (Pepcid) 20 mg PO BID [facility] Last Admin: 03/22/19 21:50 Dose: 20 mg Documented by: Hydromorphone HCl (Dilaudid Inj) 1 mg IV Q2H PRN PRN PRN Reason: SEVERE PAIN (6-10/10) Last Admin: 03/23/19 04:48 Dose: 1 mg Documented by: Sodium Chloride () 1,000 mls @ 75 mls/hr IV .[id number] [facility] Last Admin: 03/23/19 05:01 Dose: 75 mls/hr Documented by: Insulin Glargine (Lantus (Bkc)) 50 units SC QHS [facility] Last Admin: 03/22/19 22:28 Dose: 50 u Documented by: Insulin Human Lispro (Humalog Kwikpen (Bkc)) 0 unit SC [facility]; Protocol Last Admin: 03/22/19 22:30 Dose: 5 u Documented by: Ketorolac Tromethamine (Toradol) 15 mg IV Q8 [facility] Stop: 03/24/19 22:01 Last Admin: 03/23/19 05:01 Dose: 15 mg Documented by: Loratadine (Claritin) 10 mg PO DAILY [facility] Ondansetron HCl (Zofran) 4 mg IV Q6H PRN PRN PRN Reason: NAUSEA/VOMITING Pantoprazole Sodium (Protonix) 40 mg PO DAILY [facility] Pregabalin (Lyrica) 100 mg PO TID [facility] Last Admin: 03/23/19 05:01 Dose: 100 mg Documented by: Sodium Chloride () 10 - 40 ml IV UD PRN PRN Reason: SALINE FLUSH Last Admin: 03/22/19 18:14 Dose: 10 ml Documented by: Medical Necessity - Tobacco Use Smoking Status: Current every day smoker Tobacco Use: Cigarettes Assessment/Plan All Active Problems (Last Reviewed 02/26/19 @ 13:24 by Brenaa Lantigua) Skin ulcer of abdomen (Acute) Vulvovaginal candidiasis (Acute) Type 2 diabetes mellitus with other skin ulcer (Acute) Skin flap infection (Acute) Osteomyelitis (Acute) The patient is a 48 y/o F w/ PMHx: Diabetes mellitus type II 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 Meraz. 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 (2) History of necrotizing fasciitis status post R BKA: VAC currently in place, due to change today, discussed with wound care and will have takedown performed with follow-up in wound care center. (3) Hypertension: Continue home regimen including clonidine although alternate regimen would be ideal, PRN hydralazine. (4) Hyperlipidemia: Continue home statin regimen. (5) Diabetes mellitus type II: Hold oral home regimen, continue home insulin regimen, ADA diet, accu checks w/ ISS. (6) Anxiety and depression: Home Cymbalta regimen. Ativan IV as needed low-dose added per surgery as patient extremely anxious. (7) Obesity: Weight loss and lifestyle changes encouraged. (8) GERD: Famotidine pantoprazole. (9) DVT prophylaxis: SCD to left lower extremity, chemoprophylaxis per surgery discretion given recent intervention. Code Visit Inpatient E&M: 95659 Subs Hosp L2
--- NOTE | 2019-03-23 07:09 | PCM.PN.SRG ---
Subjective: Patient is complaining of pain this morning - Physical Exam General: Alert, Oriented x3 Lungs: Normal air movement Abdomen: Soft, Non-Distended, Tender Vital Signs Temp Pulse Resp BP Pulse Ox 98.4 F 81 16 93/61 94 03/23/19 01:49 03/23/19 01:49 03/23/19 01:49 03/23/19 01:49 03/23/19 01:49 Oxygen Flow Rate (L/min) 2 Oxygen Delivery Method Room Air Weight: 227 lb 15.327 oz Body Mass Index (BMI) 34.6 Finger Stick Blood Glucose 250 Intake and Output for Last 24 Hours 03/21/19 03/22/19 03/23/19 23:59 23:59 23:59 Intake Total 1600 / 1600 1517 / 1517 Output Total 950 / 950 Balance 1600 / 1600 567 / 567 Laboratory Tests Past 24 Hrs 03/22/19 03/22/19 03/22/19 10:05 10:05 10:05 WBC 5.6 RBC 4.62 Hgb 13.7 Hct 40.8 MCV 88.3 MCH 29.7 MCHC 33.6 RDW 14.9 H RDW Differential 48.0 H Plt Count 273 MPV 10.5 Immature Gran % (Auto) Neut % (Auto) Lymph % (Auto) [place] % (Auto) Eos % (Auto) Baso % (Auto) Absolute Neuts (auto) Absolute Lymphs (auto) Total Counted Sodium 140 Potassium 3.9 Chloride 108 H Carbon Dioxide 25.0 Anion Gap 7 BUN 13 Creatinine 0.71 Estim Creat Clear Calc 99.88 Est GFR (MDRD) Af Amer 113 Est GFR (MDRD) Non-Af 94 BUN/Creatinine Ratio 18.3 Glucose 275 H Hemoglobin A1c 9.4 H Calcium 8.4 L 03/23/19 03/23/19 05:25 05:25 WBC 4.6 RBC 4.10 L Hgb 11.9 L Hct 37.4 MCV 91.2 MCH 29.0 MCHC 31.8 L RDW 15.0 H RDW Differential 49.4 H Plt Count 217 MPV 10.6 Immature Gran % (Auto) 0.200 Neut % (Auto) 68.8 Lymph % (Auto) 18.5 L [place] % (Auto) 7.3 Eos % (Auto) 4.3 Baso % (Auto) 0.9 Absolute Neuts (auto) 3.2 Absolute Lymphs (auto) 0.86 Total Counted Not Reportable Sodium 139 Potassium 3.6 Chloride 108 H Carbon Dioxide 29.0 Anion Gap 2 L BUN 8 Creatinine 0.71 Estim Creat Clear Calc 99.88 Est GFR (MDRD) Af Amer 114 Est GFR (MDRD) Non-Af 94 BUN/Creatinine Ratio 11.3 Glucose 147 H Hemoglobin A1c Calcium 7.9 L POC Glucose 03/22/19 03/22/19 03/22/19 22:27 16:52 13:40 POC Glucose 316 H 231 H 250 H 03/22/19 10:20 POC Glucose 269 H Medical Necessity - Tobacco Use Smoking Status: Current every day smoker Tobacco Use: Cigarettes Assessment/Plan All Active Problems (Last Reviewed 02/26/19 @ 13:24 by Breana Lantigua) Skin ulcer of abdomen (Acute) Vulvovaginal candidiasis (Acute) Type 2 diabetes mellitus with other skin ulcer (Acute) Skin flap infection (Acute) Osteomyelitis (Acute) 48-year-old female status post colostomy reversal 1. Patient had loop colostomy reversal yesterday. She is not passing any flatus yet. Continue clear liquids until she starts pacing flatus. 2. Diabetes. Patient on sliding scale and medicine was consulted to assist with diabetic management. Patient is also having difficult time with pain control and requiring heavy doses of narcotics. Hospitalist group is assisting with this as well. Jim Meraz MD Pager: [facility] [address] [place] [address], [address] [place] [address] Office:
[2019-03-23 07:26] LABS: Bedside Glucose 144 mg/dL (70-110)
[2019-03-23] MEDS: 0.9% NaCl Peripheral Flush Adult/Peds IV ×7 (07:30→21:36)
[2019-03-23 07:35] VITALS: BP 86/42; PULSE 83; RESP 18; TEMP 37.1; O2SAT 91
[2019-03-23] MEDS: oxyCODONE 5 MG Tablet PO ×2 (08:34→21:36)
[2019-03-23] MEDS: fentaNYL 25 MCG Patch TRANSDERM. (08:35)
[2019-03-23 09:50] VITALS: BP 106/69
[2019-03-23] MEDS: Loratadine 10 MG Tablet PO (09:54)
[2019-03-23] MEDS: Pantoprazole Sodium 40 MG Tablet PO (09:55)
[2019-03-23] MEDS: DULoxetine Hcl 60 MG Capsule PO ×2 (09:55→21:37)
[2019-03-23] MEDS: Famotidine 20 MG Tablet PO ×2 (09:55→21:37)
[2019-03-23] MEDS: Baclofen 10 MG Tablet PO ×2 (09:55→21:37)
--- NOTE | 2019-03-23 10:02 | NURSING ---
FOUND PT HAD REMOVED HER FENTANYL PATCH & STUCK IT IN MEDICINE CUP ON BEDSIDE TABLE. ASKED PT WHY SHE REMOVED IT. PT STATES I TOLD THEM I COULDN'T WEAR THEM, THEY MAKE ME IRRITABLE. DR DELGADO MADE AWARE.
--- NOTE | 2019-03-23 10:53 | NURSING ---
PT RESTING IN BED WITH EYES CLOSED. SEE EMAR.
--- NOTE | 2019-03-23 11:17 | NURSING ---
wound photo: right stump
--- NOTE | 2019-03-23 11:20 | CASEMGMT ---
ADIN HALEY updated that patient has [facility] currently. ADIN HALEY called [place] at [facility] to confirm that patient is current with usp services. ADIN HALEY will send updated clinical information, resumption order for [facility], and discharge instructions to [facility] when patient is medically ready for discharge. CM to continue to follow this patient and plan for a safe discharge.
[2019-03-23 11:46] LABS: Bedside Glucose 165 mg/dL (70-110)
[2019-03-23] MEDS: Insulin Lispro 100 UNIT/ML INSULN.PEN SC ×3 (12:01→21:37)
--- NOTE | 2019-03-23 12:55 | CASEMGMT ---
RN CM Assessment Introduced role of RN CM to patient and patient Vinod at bedside.? Patient is alert, oriented and able?to participate in RN CM Assessment. Patient did just receive pain medication and is drowsy. ?Care providers, pharmacy, and demographics verified. Presentation: Presented to Office for Colostomy Reversal. 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 Admit Dx: Colostomy Reversal Re-Admit: No Barriers/Issues: None. Patient states her Cell is a [employer] issued phone and her 's cell is the better to contact at [phone]. PCP: Sasha Rodriguez Specialists: Endo at [facility]- Has not seen in awhile. Wound- Dr Guadarrama Preferred Pharmacy: [facility] Insurance: [facility] Rx Benefit: Yes? LNOK: Mother Taylor Craig, Vinod Silva LW/HPOA: No, Denies offered information Living Arrangements:?Lives with in a 2 story apartment, lives on the bottom nm apartment, 3 steps to enter. ADL?s: WC Bound, has a Prosthetic, but has not used d/t wound. Independent with ADLs Transportation: Patient drives, will transport on DC DME: WC, Shower Chair, Walker, Cane, Glucometer. HHC: Past and current with [facility], Nurse on . SNF: Past at [facility] Goal: Home, does not think will have any additional needs, resumption of HHC, Denies any questions/concerns/issues with DC Planning. Aware CM remains available for any emerging needs. DC PLAN: Home with no anticipated needs identified at this time other than resumption of HHC. ANGELINE Peters
[2019-03-23 14:00] VITALS: BP 104/63; PULSE 82; RESP 18; TEMP 37.7; O2SAT 94
[2019-03-23 16:46] LABS: Bedside Glucose 201 mg/dL (70-110)
[2019-03-23 19:45] VITALS: BP 119/64; PULSE 89; RESP 18; TEMP 38.2; O2SAT 95
--- NOTE | 2019-03-23 20:20 | NURSING ---
Patient assisted to from the BSC to the chair via x2-3 assist gait belt stand and pivot. Patient tolerated well.
[2019-03-23 21:36] VITALS: TEMP 37.6
[2019-03-23] MEDS: Atorvastatin Calcium 40 MG Tablet PO (21:37)
[2019-03-23] MEDS: cloNIDine HCl 0.1 MG Tablet PO (21:37)
[2019-03-23 21:50] LABS: Bedside Glucose 173 mg/dL (70-110)
[2019-03-24] MEDS: HYDROmorphone 1 MG/ML Syringe IV ×2 (02:18→06:12)
[2019-03-24 02:26] VITALS: BP 102/61; PULSE 80; RESP 18; TEMP 36.9; O2SAT 94
[2019-03-24] MEDS: 0.9% Normal Saline 1,000 ML 75 ML IV (05:20)
[2019-03-24] MEDS: oxyCODONE 5 MG Tablet PO ×5 (05:20→21:33)
[2019-03-24] MEDS: Ketorolac 15 MG/ML Vial IV ×3 (05:20→21:36)
[2019-03-24] MEDS: Pregabalin 50 MG Capsule 100 MG PO ×3 (05:21→21:44)
[2019-03-24 06:34] LABS: Absolute Lymphocyte Count 1.16 X10^3/uL (0.83-4.51); Absolute Neutrophil Count 4.8 X10^3/uL (2.0-7.7); Basophil# 0.06 X10^3/uL; Basophil% 0.9 % (0-1); Eosinophil# 0.27 X10^3/uL; Hematocrit 36.3 % (37-47); Hemoglobin 11.6 g/dL (12.0-15.0); Lymphocyte # 1.16 X10^3/ul (4.0); Lymphocyte % 17.1 % (19-41); Mean Corpuscular Hgb 29.4 pg (27.0-32.0); Mean Corpuscular Volume 92.1 fL (81-99); Mean Platelet Vol. 10.5 fl (6.2-12.0); Monocyte# 0.44 X10^3/uL; Monocyte% 6.5 % (0-10); Neutrophil # 4.83 X10^3/uL (2.7-7.7); Neutrophil % 71.2 % (47-70); Platelet Count 205 K/mm3 (150-450); RBC Distribution Width CV 14.9 % (11.6-14.6); RBC Distribution Width SD 50.9 fl (35.1-43.9); Red Blood Count 3.94 M/mm3 (4.2-5.4); White Blood Count 6.8 K/mm3 (4.4-11.0)
[2019-03-24 06:46] LABS: Bedside Glucose 92 mg/dL (70-110)
[2019-03-24 06:57] LABS: Anion Gap 8 (5-15); BUN 6 mg/dL (7-18); BUN/Creat Ratio 10.6 RATIO (10-20); Calcium,Total 7.8 mg/dL (8.5-10.1); Chloride 110 mmol/L (98-107); Creatinine, Serum 0.57 mg/dL (0.55-1.02); EST Glomerular Filtration Rate 122 mL/min (>60); Est Glom Filt Rate - Afr Amer 147 mL/min (>60); Estimated Creatinine Clearance 124.41 ml/min; Glucose 81 mg/dL (74-106); Potassium 3.6 mmol/L (3.5-5.1); Sodium Level 144 mmol/L (136-145)
--- NOTE | 2019-03-24 07:00 | PN_ITS ---
Subjective: Patient overnight with elevated temperatures, increased cough, oxygen requirements with noted improvement of abdominal pain but no flatus nor bowel m ovements. Discussion with nursing staff patient is very reticent to move and is been minimally out of bed even using the bedpan. Patient denies fevers, chills, nausea, emesis, abdominal pain, chest pain. Objective: Physical Examination: General: awake, alert, oriented x 3 and cooperative, seated upright in bed, not appear in any distress or market discomfort. Skin: normal color, turgor, no icterus, cyanosis, status post ostomy reversal with left lower quadrant dressing in place, old blood absorbs to dressing but no current, dressing to right BKA stump without any drainage noted. HEENT: AT/NC, EOMI, PERRLA, MMM. Lungs: Managed breath sounds bases, mildly coarse, rhonchorous, poor effort, no wheezing. Heart: Regular rate and rhythm; no gallop, rub audible. Abdomen: soft, obese, recent ostomy reversal, left lower quadrant dressing in place, decreased tenderness to palpation, still ongoing minimally noted bowel sounds, mild to moderate distention. Extremities: no cyanosis, clubbing, s/p R BKA w/ stump dressing in place, VAC has been removed. Neurological: patient awake, alert, oriented x 3; cognitive function intact; pupils equally reactive to light and accomodation; cranial nerves II-XII grossly normal, moving all 4 extremities although some limitation given recent operative intervention, status post right BKA, strength remains moderately to severely global decrease the patient effort notably decreased as well. Psychiatric: affect appears calm, fatigued appearance, no acute evidence of depressive or anxiety feelings. Vitals/I&O's: Vital Signs Temp Pulse Resp BP Pulse Ox 98.4 F 80 18 102/61 94 03/24/19 02:26 03/24/19 02:26 03/24/19 02:26 03/24/19 02:26 03/24/19 02:26 Oxygen Flow Rate (L/min) 2 Oxygen Delivery Method Nasal Cannula Weight: 227 lb 15.327 oz Body Mass Index (BMI) 34.6 Finger Stick Blood Glucose 250 Intake and Output for Last 24 Hours 03/22/19 03/23/19 03/24/19 23:59 23:59 23:59 Intake Total 1600 / 1600 4908 / 4908 1172 / 1172 Output Total 3125 / 3125 800 / 800 Balance 1600 / 1600 1783 / 1783 372 / 372 Laboratory Results 03/23/19 07:19: POC Glucose 144 H 03/23/19 11:38: POC Glucose 165 H 03/23/19 16:26: POC Glucose 201 H 03/23/19 21:33: POC Glucose 173 H 03/24/19 06:05: WBC 6.8, RBC 3.94 L, Hgb 11.6 L, Hct 36.3 L, MCV 92.1, MCH 29.4, MCHC 32.0, RDW Std Deviation 50.9 H, RDW Coeff of Mona 14.9 H, Plt Count 205, MPV 10.5, Immature Gran % (Auto) 0.300, Neut % (Auto) 71.2 H, Lymph % (Auto) 17.1 L, Daniels % (Auto) 6.5, Eos % (Auto) 4.0, Baso % (Auto) 0.9, Absolute Neuts (auto) 4.8, Absolute Lymphs (auto) 1.16 03/24/19 06:05: Sodium 144, Potassium 3.6, Chloride 110 H, Carbon Dioxide 26.0, Anion Gap 8, BUN 6 L, Creatinine 0.57, Estim Creat Clear Calc 124.41, Est GFR (MDRD) Af Amer 147, Est GFR (MDRD) Non-Af 122, BUN/Creatinine Ratio 10.6, Glucose 81, Calcium 7.8 L 03/24/19 06:40: POC Glucose 92 Current Medications Acetaminophen (Tylenol) 650 mg PO Q6H PRN PRN PRN Reason: PAIN Last Admin: 03/22/19 23:54 Dose: 650 mg Documented by: Atorvastatin Calcium (Lipitor) 40 mg PO QHS [facility] Last Admin: 03/23/19 21:37 Dose: 40 mg Documented by: Baclofen (Lioresal) 10 mg PO BID [facility] Last Admin: 03/23/19 21:37 Dose: 10 mg Documented by: Clonidine (Catapres) 0.1 mg PO QHS [facility] Last Admin: 03/23/19 21:37 Dose: 0.1 mg Documented by: Docusate Sodium (Colace) 100 mg PO BID PRN PRN Reason: Constipation Duloxetine HCl (Cymbalta) 60 mg PO BID [facility] Last Admin: 03/23/19 21:37 Dose: 60 mg Documented by: Famotidine (Pepcid) 20 mg PO BID [facility] Last Admin: 03/23/19 21:37 Dose: 20 mg Documented by: Hydromorphone HCl (Dilaudid Inj) 1 mg IV Q2H PRN PRN PRN Reason: SEVERE PAIN (6-10/10) Last Admin: 03/24/19 06:12 Dose: 1 mg Documented by: Sodium Chloride () 1,000 mls @ 75 mls/hr IV .[id number] [facility] Last Admin: 03/24/19 05:20 Dose: 75 mls/hr Documented by: Insulin Glargine (Lantus (Bk)) 50 units SC QHS [facility] Last Admin: 03/23/19 21:38 Dose: 50 u Documented by: Insulin Human Lispro (Humalog Kwikpen ([facility])) 0 unit SC ACHS [facility]; Protocol Last Admin: 03/24/19 06:54 Dose: Not Given Documented by: Ketorolac Tromethamine (Toradol) 15 mg IV Q8 [facility] Stop: 03/24/19 22:01 Last Admin: 03/24/19 05:20 Dose: 15 mg Documented by: Loratadine (Claritin) 10 mg PO DAILY [facility] Last Admin: 03/23/19 09:54 Dose: 10 mg Documented by: Lorazepam (Ativan) 0.5 mg IV Q6H PRN PRN PRN Reason: ANXIETY Ondansetron HCl (Zofran) 4 mg IV Q6H PRN PRN PRN Reason: NAUSEA/VOMITING Oxycodone HCl (Oxyir) 5 mg PO Q4H PRN PRN PRN Reason: SEVERE PAIN (6-10/10) Last Admin: 03/24/19 05:20 Dose: 5 mg Documented by: Pantoprazole Sodium (Protonix) 40 mg PO DAILY [facility] Last Admin: 03/23/19 09:55 Dose: 40 mg Documented by: Pregabalin (Lyrica) 100 mg PO TID [facility] Last Admin: 03/24/19 05:21 Dose: 100 mg Documented by: Sodium Chloride () 10 - 40 ml IV UD PRN PRN Reason: SALINE FLUSH Last Admin: 03/23/19 21:36 Dose: 10 ml Documented by: Medical Necessity - Tobacco Use Smoking Status: Current every day smoker Tobacco Use: Cigarettes Assessment/Plan All Active Problems (Last Reviewed 02/26/19 @ 13:24 by Breana Lantigua) Skin ulcer of abdomen (Acute) Vulvovaginal candidiasis (Acute) Type 2 diabetes mellitus with other skin ulcer (Acute) Skin flap infection (Acute) Osteomyelitis (Acute) The patient is a 48 y/o F w/ PMHx: Diabetes mellitus type II 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 Meraz. (1) History of stage IV ischial wound requiring prior diverting ostomy, acute intractable abdominal pain status post reversal: She admitted to medical surgical floor following operative intervention per surgery, oral intake parameters per surgery discretion, broaden pain regimen as patient noting severe pain however very short trial and removed fentanyl patch, recommend attempting to transition to oral regimen and given no flatus, minimal activity will transition duration of Dilaudid to every 4 hours, fentanyl has been discontinued, PRN oral agent, continue Tylenol as well as scheduled Toradol transiently per surgery, encouraged aggressive I-S and out of bed parameters especially given now #2, dressing removed wound care per surgery. (2) Cough, dyspnea complaints, oxygen requirements with left greater than right patchy infiltrates, ? Atelectasis versus Pneumonia, CAP: Given patient recent admission, recent operative intervention and poor activity suspicious for atelectasis however given elevated temperature and appearance of film in the interim will maintain on oxygen with wean as tolerated to room air, start ATC duonebs, PRN albuterol, maintain on IV Rocephin and Azithromycin w/ pending sputum cultures and urine antigens requested with aggressive IS usage, OOB parameters and increased activity encouragement with repeat CXR in AM. (3) History of necrotizing fasciitis status post R BKA: VAC currently in place, due to change today, discussed with wound care and will have takedown performed with follow-up in wound care center. (4) Hypertension: Continue home regimen including clonidine although alternate regimen would be ideal, PRN hydralazine. (5) Hyperlipidemia: Continue home statin regimen. (6) Diabetes mellitus type II: Hold oral home regimen, continue home insulin regimen, ADA diet, accu checks w/ ISS. (7) Anxiety and depression: Home Cymbalta regimen. Ativan IV as needed low-dose added per surgery as patient extremely anxious. (8) Obesity: Weight loss and lifestyle changes encouraged. (9) GERD: Famotidine pantoprazole. (10) DVT prophylaxis: SCD to left lower extremity, lovenox. Code Visit Inpatient E&M: 93508 Subs Hosp L3
--- NOTE | 2019-03-24 08:19 | PN.SURG_ITS ---
Subjective: Patient is tolerating clears but not passing any flatus yet. She had no nausea or vomiting. She still complaining of pain. - Physical Exam General: Alert, Oriented x3 Neck: No JVD Lungs: Normal air movement Cardiovascular: Regular rate, Regular Rhythm Abdomen: Soft, Non-Distended, - - Colostomy site is clean. Abdomen is nondistended and tender to deep palpation over the colostomy area Vital Signs Temp Pulse Resp BP Pulse Ox 98.4 F 80 18 102/61 94 03/24/19 02:26 03/24/19 02:26 03/24/19 02:26 03/24/19 02:26 03/24/19 02:26 Oxygen Flow Rate (L/min) 2 Oxygen Delivery Method Nasal Cannula Weight: 227 lb 15.327 oz Body Mass Index (BMI) 34.6 Finger Stick Blood Glucose 250 Intake and Output for Last 24 Hours 03/22/19 03/23/19 03/24/19 23:59 23:59 23:59 Intake Total 1600 / 1600 4908 / 4908 1172 / 1172 Output Total 3125 / 3125 800 / 800 Balance 1600 / 1600 1783 / 1783 372 / 372 Laboratory Tests Past 24 Hrs 03/24/19 03/24/19 06:05 06:05 WBC 6.8 RBC 3.94 L Hgb 11.6 L Hct 36.3 L MCV 92.1 MCH 29.4 MCHC 32.0 RDW Std Deviation 50.9 H RDW Coeff of Mona 14.9 H Plt Count 205 MPV 10.5 Immature Gran % (Auto) 0.300 Neut % (Auto) 71.2 H Lymph % (Auto) 17.1 L [place] % (Auto) 6.5 Eos % (Auto) 4.0 Baso % (Auto) 0.9 Absolute Neuts (auto) 4.8 Absolute Lymphs (auto) 1.16 Sodium 144 Potassium 3.6 Chloride 110 H Carbon Dioxide 26.0 Anion Gap 8 BUN 6 L Creatinine 0.57 Estim Creat Clear Calc 124.41 Est GFR (MDRD) Af Amer 147 Est GFR (MDRD) Non-Af 122 BUN/Creatinine Ratio 10.6 Glucose 81 Calcium 7.8 L POC Glucose 03/24/19 03/23/19 03/23/19 06:40 21:33 16:26 POC Glucose 92 173 H 201 H 03/23/19 11:38 POC Glucose 165 H Medical Necessity - Tobacco Use Smoking Status: Current every day smoker Tobacco Use: Cigarettes Assessment/Plan All Active Problems (Last Reviewed 02/26/19 @ 13:24 by Breana Lantigua) Skin ulcer of abdomen (Acute) Vulvovaginal candidiasis (Acute) Type 2 diabetes mellitus with other skin ulcer (Acute) Skin flap infection (Acute) Osteomyelitis (Acute) 48-year-old female status post loop colostomy reversal, POD 2 1. Patient is not having any bowel function yet. Continue clear liquids until she starts to have bowel function. I will also make sure she is on a stool softener. Patient has heavy narcotic use and may have slow motility. 2. Diabetic-hospitalist on consult to manage medical issues. Jim Meraz MD Pager: [facility] [address] [place] [address], [address] [place] [address] Office:
--- NOTE | 2019-03-24 08:53 | RAD_ITS ---
STUDY: X-RAY CHEST REASON FOR EXAM: Female, 48 years old. Cough, shortness of breath and fever. TECHNIQUE: PA and lateral views of the chest. COMPARISON: Comparison is made with prior study dated April 26, 2016. FINDINGS: There now is evidence of a bibasilar patchy infiltrates worse on the left. Follow-up is recommended. There is no demonstrated pleural abnormality. Normal size heart. Normal mediastinum and irma. Normal visualized pulmonary arteries. Normal visualized aortic arch and descending thoracic aorta. Normal visualized thoracic spine. Normal visualized ribs, clavicles, and shoulders. There is no demonstrated abnormality of the visualized soft tissue structures of the upper abdomen. RAD/Chest PA and Lateral IMPRESSION: Bibasilar patchy infiltrates worse on the left side. Radiographic follow-up is recommended. Electronically Signed: Dexter Morton, at 9:13 EDT , Service support ,
[2019-03-24 09:06] VITALS: BP 101/58; PULSE 76; RESP 18; TEMP 36.7; O2SAT 93
[2019-03-24] MEDS: Ensure Clear 120 ML Liquid PO ×4 (09:11→21:45)
[2019-03-24] MEDS: 0.9% NaCl Peripheral Flush Adult/Peds IV ×5 (09:11→23:52)
[2019-03-24] MEDS: DULoxetine Hcl 60 MG Capsule PO ×2 (09:12→21:35)
[2019-03-24] MEDS: HYDROmorphone 0.5 MG/0.5 ML SYRINGE IV ×2 (09:12→23:52)
[2019-03-24] MEDS: Loratadine 10 MG Tablet PO (09:12)
[2019-03-24] MEDS: Enoxaparin 40 MG/0.4 ML Syringe SC (09:12)
[2019-03-24] MEDS: Docusate Sodium 100 MG Capsule PO ×2 (09:12→21:34)
[2019-03-24] MEDS: Baclofen 10 MG Tablet PO ×2 (09:12→21:35)
[2019-03-24] MEDS: Famotidine 20 MG Tablet PO ×2 (09:12→21:34)
[2019-03-24] MEDS: Pantoprazole Sodium 40 MG Tablet PO (09:12)
[2019-03-24] MEDS: Ceftriaxone 1 GM/50 ML BAG IV (10:46)
[2019-03-24 11:36] LABS: Bedside Glucose 190 mg/dL (70-110)
[2019-03-24] MEDS: Ondansetron 4 MG/2 ML Vial IV (12:28)
[2019-03-24 13:32] VITALS: PULSE 79; RESP 18
[2019-03-24] MEDS: Ipratropium/Albuterol Sulfate 3 ML AMPUL.NEB INHALATION ×2 (13:32→20:33)
[2019-03-24 14:25] VITALS: BP 107/74; PULSE 75; RESP 18; TEMP 36.5; O2SAT 95
[2019-03-24] MEDS: Insulin Lispro 100 UNIT/ML INSULN.PEN SC ×2 (15:20→21:48)
[2019-03-24 15:26] LABS: Bedside Glucose 188 mg/dL (70-110)
--- NOTE | 2019-03-24 16:02 | NURSING ---
SUB PLANT MANAGER reported to this RN that patient having severe pain, but fell asleep while up on the bedside commode. This RN to room to assess patient's pain, but patient was asleep. Did not awake to name being spoken 2x. WIll monitor. cigarette tipper Layla also updated.
[2019-03-24] MEDS: Acetaminophen 325 MG Tablet 650 MG PO ×2 (16:24→21:33)
--- NOTE | 2019-03-24 16:27 | NURSING ---
Patient called out for pain medication, entered room, daughter in chair watching TV at loud volume, patient asleep. When this nurse entered and began speaking to daughter,patient woke up. The patient immediately began crying and moaning stating she cannot take another minute of pain. Due to sleepiness at this time tylenol given, will re assess pain to see if Dilaudid needed. The OxyIR is due around 1730.
[2019-03-24 20:34] VITALS: PULSE 85; RESP 16
[2019-03-24 21:11] VITALS: BP 110/58; PULSE 83; RESP 16; TEMP 36.4; O2SAT 93
[2019-03-24] MEDS: Atorvastatin Calcium 40 MG Tablet PO (21:35)
[2019-03-24] MEDS: cloNIDine HCl 0.1 MG Tablet PO (21:35)
[2019-03-24 22:25] LABS: Bedside Glucose 155 mg/dL (70-110)
[2019-03-25 04:31] VITALS: BP 126/69; PULSE 73; RESP 16; TEMP 36.6; O2SAT 97
[2019-03-25] MEDS: oxyCODONE 5 MG Tablet PO ×2 (04:32→08:58)
[2019-03-25] MEDS: Acetaminophen 325 MG Tablet 650 MG PO (04:32)
--- NOTE | 2019-03-25 05:55 | RAD_ITS ---
STUDY: X-RAY CHEST REASON FOR EXAM: Female, 48 years old. Shortness of breath. TECHNIQUE: AP and lateral views of the chest. COMPARISON: Comparison is made with prior study dated March 24, 2019. FINDINGS: Persistent bibasilar infiltrates. Mild improvement as compared to prior study. There is no demonstrated pleural abnormality. Normal size heart. Normal mediastinum and irma. Normal visualized pulmonary arteries. Normal visualized aortic arch and descending thoracic aorta. Normal visualized thoracic spine. Normal visualized ribs, clavicles, and shoulders. Gaseous distention of the visualized colon. RAD/Chest PA and Lateral IMPRESSION: Residual bibasilar infiltrates although there has been moderate improvement as compared to prior study. Electronically Signed: Dexter Morton, at 9:37 EDT , Service support ,
[2019-03-25] MEDS: Pregabalin 50 MG Capsule 100 MG PO (06:41)
[2019-03-25 06:55] LABS: Bedside Glucose 79 mg/dL (70-110)
[2019-03-25 07:07] VITALS: PULSE 77; RESP 16
[2019-03-25] MEDS: Ipratropium/Albuterol Sulfate 3 ML AMPUL.NEB INHALATION (07:07)
--- NOTE | 2019-03-25 07:21 | PN_ITS ---
Subjective: Patient overnight clinically improved with less abdominal discomfort, flatus onset, initiation of diet with toleration. Patient with less dyspnea, weaned off oxygen, does still have cough but notes feeling better. Patient clinically improved therefore surgery plan for discharge and patient amenable with transition to oral antibiotic therapy. Discussed at length aggressive head of bed, incentive spirometry activity needs to improve her pulmonary status to which she states understanding. Patient denies fevers, chills, nausea, emesis, chest pain. Objective: Physical Examination: General: awake, alert, oriented x 3 and cooperative, seated upright in in the bedside chair, improved appearance. Skin: normal color, turgor, no icterus, cyanosis, status post ostomy reversal with left lower quadrant dressing in place no market drainage, right BKA stump with dressing in place also. HEENT: AT/NC, EOMI, PERRLA, MMM. Lungs: Improved breath sounds, diminished bases, improved from prior, improved effort, still mildly rhonchorous, no wheezing or rales noted. Heart: Regular rate and rhythm; no gallop, rub audible. Abdomen: soft, obese, recent ostomy reversal, left lower quadrant dressing in place, less tender to palpation, still mildly distended, distant bowel sounds now. Extremities: no cyanosis, clubbing, s/p R BKA w/ stump dressing in place, VAC has been removed. Neurological: patient awake, alert, oriented x 3; cognitive function intact; pupils equally reactive to light and accomodation; cranial nerves II-XII grossly normal, moving all 4 extremities although some limitation given recent operative intervention, status post right BKA, improved, mildly to moderately globally decreased. Psychiatric: affect appears improved, normal, no acute evidence of depressive or anxiety feelings. Vitals/I&O's: Vital Signs Temp Pulse Resp BP Pulse Ox 97.9 F 73 16 126/69 H 97 03/25/19 04:31 03/25/19 04:31 03/25/19 04:31 03/25/19 04:31 03/25/19 04:31 Oxygen Flow Rate (L/min) 2 Oxygen Delivery Method Room Air Weight: 227 lb 15.327 oz Body Mass Index (BMI) 34.6 Finger Stick Blood Glucose 250 Intake and Output for Last 24 Hours 03/23/19 03/24/19 03/25/19 23:59 23:59 23:59 Intake Total 4908 / 4908 3066 / 3903 937 / 937 Output Total 3125 / 3125 3200 / 3200 Balance 1783 / 1783 -134 / 703 937 / 937 Microbiology Past 72 Hours 03/24/19 10:45 Sputum, Expectorated/Coughed Gram Stain - Final 03/24/19 12:05 Urine, Clean Catch Streptococcus pneumoniae Antigen (M - Final 03/24/19 12:05 Urine, Clean Catch Legionella Antigen - Final Laboratory Results 03/24/19 11:25: POC Glucose 190 H 03/24/19 15:19: POC Glucose 188 H 03/24/19 21:47: POC Glucose 155 H 03/25/19 06:39: POC Glucose 79 Current Medications Acetaminophen (Tylenol) 650 mg PO Q4H PRN PRN PRN Reason: pain, fever Last Admin: 03/25/19 04:32 Dose: 650 mg Documented by: Albuterol Sulfate (Ventolin Aerosols) 2.5 mg INHALATION Q2H PRN PRN PRN Reason: dyspnea, wheezing Albuterol/Ipratropium (Duoneb) 3 ml INHALATION Q6HWA.RT [facility] Last Admin: 03/25/19 07:07 Dose: 3 ml Documented by: Atorvastatin Calcium (Lipitor) 40 mg PO QHS [facility] Last Admin: 03/24/19 21:35 Dose: 40 mg Documented by: Baclofen (Lioresal) 10 mg PO BID [facility] Last Admin: 03/24/19 21:35 Dose: 10 mg Documented by: Clonidine (Catapres) 0.1 mg PO QHS [facility] Last Admin: 03/24/19 21:35 Dose: 0.1 mg Documented by: Docusate Sodium (Colace) 100 mg PO BID [facility] Last Admin: 03/24/19 21:34 Dose: 100 mg Documented by: Duloxetine HCl (Cymbalta) 60 mg PO BID [facility] Last Admin: 03/24/19 21:35 Dose: 60 mg Documented by: Enoxaparin Sodium (Lovenox) 40 mg SC DAILY [facility] Last Admin: 03/24/19 09:12 Dose: 40 mg Documented by: Famotidine (Pepcid) 20 mg PO BID [facility] Last Admin: 03/24/19 21:34 Dose: 20 mg Documented by: Hydromorphone HCl (Dilaudid Inj) 0.5 mg IV Q4H PRN PRN PRN Reason: SEVERE PAIN (6-10/10) Last Admin: 03/24/19 23:52 Dose: 0.5 mg Documented by: Ceftriaxone Sodium (Rocephin) 1 gm in 50 mls @ 100 mls/hr IV Q24 [facility] Last Admin: 03/24/19 10:46 Dose: 100 mls/hr Documented by: Azithromycin 500 mg/ Dextrose 255 mls @ 250 mls/hr IV Q24 [facility] Last Admin: 03/24/19 11:18 Dose: 250 mls/hr Documented by: Insulin Glargine (Lantus (Bk)) 50 units SC QHS [facility] Last Admin: 03/24/19 21:49 Dose: 50 u Documented by: Insulin Human Lispro (Humalog Kwikpen ([facility])) 0 unit SC ACHS [facility]; Protocol Last Admin: 03/25/19 06:41 Dose: Not Given Documented by: Loratadine (Claritin) 10 mg PO DAILY [facility] Last Admin: 03/24/19 09:12 Dose: 10 mg Documented by: Lorazepam (Ativan) 0.5 mg IV Q6H PRN PRN PRN Reason: ANXIETY Nutritional Formula (Lactose Free) (Ensure Clear) 120 ml PO 4X/DAY [facility] Last Admin: 03/24/19 21:45 Dose: 120 ml Documented by: Ondansetron HCl (Zofran) 4 mg IV Q6H PRN PRN PRN Reason: NAUSEA/VOMITING Last Admin: 03/24/19 12:28 Dose: 4 mg Documented by: Oxycodone HCl (Oxyir) 5 - 10 mg PO Q4H PRN PRN PRN Reason: SEVERE PAIN (6-1010) Last Admin: 03/25/19 04:32 Dose: 10 mg Documented by: Pantoprazole Sodium (Protonix) 40 mg PO DAILY [facility] Last Admin: 03/24/19 09:12 Dose: 40 mg Documented by: Pregabalin (Lyrica) 100 mg PO TID [facility] Last Admin: 03/25/19 06:41 Dose: 100 mg Documented by: Sodium Chloride () 10 - 40 ml IV UD PRN PRN Reason: SALINE FLUSH Last Admin: 03/24/19 23:52 Dose: 10 ml Documented by: Medical Necessity - Tobacco Use Smoking Status: Current every day smoker Tobacco Use: Cigarettes Assessment/Plan All Active Problems (Last Reviewed 02/26/19 @ 13:24 by Breana Lantigua) Skin ulcer of abdomen (Acute) Vulvovaginal candidiasis (Acute) Type 2 diabetes mellitus with other skin ulcer (Acute) Skin flap infection (Acute) Osteomyelitis (Acute) The patient is a 48 y/o F w/ PMHx: Diabetes mellitus type II 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 Meraz. (1) History of stage IV ischial wound requiring prior diverting ostomy, acute intractable abdominal pain status post reversal: She admitted to medical surgical floor following operative intervention per surgery, oral intake parameters per surgery discretion, pain regimen alterations during admission secondary to severe pain although did clinically improve and was de-escalating to oral therapies without issue, continued on Tylenol as well as scheduled Toradol and as needed ibuprofen following this transition. Patient felt to be clinically improved with transition to oral diet and tolerated therefore discharged per surgery service. (2) Cough, dyspnea complaints, oxygen requirements with left greater than right patchy infiltrates, ? Atelectasis versus Pneumonia, CAP: Given patient recent admission, recent operative intervention and poor activity suspicious more for atelectasis however did have elevated temperatures and repeat film with residual bibasilar infiltrates improved from prior study, continued to encourage out of bed, aggressive incentive spirometer, continue aerosols as well as IV Rocephin and azithromycin with transition to oral regimen upon discharge, sputum Gram stain preliminarily unremarkable, urine antigens negative. (3) History of necrotizing fasciitis status post R BKA: VAC currently in place, due to change today, discussed with wound care and will have takedown performed with follow-up in wound care center. (4) Hypertension: Continue home regimen including clonidine although alternate regimen would be ideal, PRN hydralazine. (5) Hyperlipidemia: Continue home statin regimen. (6) Diabetes mellitus type II: Hold oral home regimen, continue home insulin regimen, ADA diet, accu checks w/ ISS. (7) Anxiety and depression: Home Cymbalta regimen. Ativan IV as needed low-dose added per surgery as patient extremely anxious. (8) Obesity: Weight loss and lifestyle changes encouraged. (9) GERD: Famotidine pantoprazole. (10) DVT prophylaxis: SCD to left lower extremity, lovenox. Code Visit Inpatient E&M: 49145 Subs Hosp L2
--- NOTE | 2019-03-25 08:13 | PCM.PN.SRG ---
Subjective: Patient tolerating transitional diet, having flatus. Patient complains of pain around the colostomy site packed with wet-to-dry's., Patient's chest x-ray yesterday showed no questionable patchy infiltrates repeat today pending, patient does states she is coughing up green stuff, patient is a smoker. Patient has not been walking the halls that she states she is unable to wear her prosthesis for her right leg currently but has been getting up to go to use the restroom - Physical Exam General: Alert, Oriented x3, Cooperative, No apparent distress Cardiovascular: Regular rate Abdomen: Soft, Non-Distended, Tender - Tender near colostomy site, colostomy site packed with wet-to-dry Kerlix, good granulation tissue. Neurological: Cranial nerves II-XII grossly intact Psych/Mental Status: Normal Affect Vital Signs Temp Pulse Resp BP Pulse Ox 97.9 F 77 16 126/69 H 97 03/25/19 04:31 03/25/19 07:07 03/25/19 07:07 03/25/19 04:31 03/25/19 04:31 Oxygen Flow Rate (L/min) 2 Oxygen Delivery Method Room Air Weight: 227 lb 15.327 oz Body Mass Index (BMI) 34.6 Finger Stick Blood Glucose 250 Intake and Output for Last 24 Hours 03/23/19 03/24/19 03/25/19 23:59 23:59 23:59 Intake Total 4908 / 4908 3066 / 3903 937 / 937 Output Total 3125 / 3125 3200 / 3200 Balance 1783 / 1783 -134 / 703 937 / 937 Microbiology Past 72 Hours 03/24/19 10:45 Gram Stain - Final Sputum, Expectorated/Coughed 03/24/19 12:05 Streptococcus pneumoniae Antigen (M - Final Urine, Clean Catch 03/24/19 12:05 Legionella Antigen - Final Urine, Clean Catch POC Glucose 03/25/19 03/24/19 03/24/19 06:39 21:47 15:19 POC Glucose 79 155 H 188 H 03/24/19 11:25 POC Glucose 190 H Medical Necessity - Tobacco Use Smoking Status: Current every day smoker Tobacco Use: Cigarettes Assessment/Plan All Active Problems (Last Reviewed 02/26/19 @ 13:24 by Breana Lantigua) Skin ulcer of abdomen (Acute) Vulvovaginal candidiasis (Acute) Type 2 diabetes mellitus with other skin ulcer (Acute) Skin flap infection (Acute) Osteomyelitis (Acute) 48-year-old female status post colostomy reversal 1. Tolerating diet and having flatus okay from discharge per surgery. 2. Questionable patchy infiltrate versus atelectasis discussed with Dr. Zimmerman she will plan to treat as pneumonia with p.o. antibiotics. 3. Follow-up with Dr. Meraz in about 2 weeks and follow-up with PCP in 1 week. Sudha Sales M.D. Pager: [phone] [facility] [address] [place] [address], [facility], [address] [place] [address] Office: [phone]
--- NOTE | 2019-03-25 08:16 | PCM.DC.GS ---
Discharge Diet: 1800 Calorie Control Diet Discharge Activity: May not drive while taking narcotic pain medications. May shower in (days): 0 Lifting Restrictions: no lifting > 20 lb x 2 weeks Call your doctor if your incision/area has: Continuous Slow Oozing, Sudden Increased Bleeding, Increased Pain/ Swelling, Increased Redness, Foul Smelling Discharge, Swelling at the incision site Call your doctor if you observe: Fever of 101 or Higher Additional Dressing/Incision Instructions:: Wet-to-dry dressings of the colostomy site change daily--saline soaked Kerlix squeeze excess saline out well then placed, dont allow the soaked kerlix to be on the normal surrounding skin. ABD pad and tape over the top. Additional Instructions: Okay to take ibuprofen 400-600 mg PO q6hr PRN along with the percocet. Avoid Tylenol since there is already Tylenol in the percocet. Take all pain meds with food. percocet can cause constipation recommend taking daily stool softener (i.e. Colace/docusate) while taking the pain meds. Recommend starting some MiraLAX in a couple of days if no bowel movement. Allergies/Adverse Reactions: Allergies fentanyl Allergy (Verified 03/22/19 17:58) Other CONFUSION morphine Adverse Reaction (Verified 03/22/19 17:58) Upset Stomach CONFUSION Medications to take at Discharge Baclofen 10 mg PO BID 04/26/16 pantoprazole 40 mg tablet,delayed release 40 mg PO QDAY 03/04/18 pregabalin 100 mg capsule 100 mg PO TID 07/22/18 clonidine HCl 0.1 mg tablet 0.1 mg PO QHS tab 08/24/18 hydrocodone 5 mg-acetaminophen 325 mg tablet 1 tab PO Q6H PRN 10/19/18 shower chair #1 ea 01/05/19 pen needle, diabetic 29 gauge x 1/2 See Dose Instructions .ROUTE .MEDSUPPLY #100 ea 02/03/19 ranitidine 150 mg tablet 150 mg PO BID #180 tab 02/23/19 duloxetine 30 mg capsule,delayed release 60 mg PO BID #60 cap 03/15/19 Atorvastatin Calcium 40 mg PO DAILY 03/16/19 Clopidogrel Bisulfate [Clopidogrel] 75 mg PO DAILY 03/16/19 Docusate Sodium [Colace] 100 mg PO BID PRN 03/16/19 Dulaglutide [Trulicity] 1.5 mg SUBCUT QWEEK 03/16/19 Insulin Detemir [Levemir ([facility])] 50 units SUBCUT QHS 03/16/19 Insulin Lispro [Humalog KwikPen] 12 unit SUBCUT TIDAC 03/16/19 Insulin Lispro [Humalog KwikPen] See Protocol SUBCUT ACHS 03/16/19 Loratadine 10 mg PO DAILY 03/16/19 Wheelchair 0 .ROUTE .MEDSUPPLY 03/16/19 Oxycodone HCl/Acetaminophen [Percocet 5/325] 1 - 2 tab PO Q6H PRN PRN 5 Days #30 tab 03/25/19 The following prescriptions were given: Oxycodone HCl/Acetaminophen [Percocet 5/325] 1 - 2 tab PO Q6H PRN PRN 5 Days #30 tab PRN Reason: Pain Transmission Status: Received by [facility] Primary Care Physician: Sasha Rodriguez MD [Primary Care Provider] - Test Results: Test results from this visit will be discussed in further detail at your follow-up appointment, if applicable. Please Follow Up With: Jim Meraz MD When: Call the office for follow-up appointment 2 weeks Proposed Discharge Date: 03/25/19
[2019-03-25 08:50] VITALS: BP 114/65; PULSE 82; RESP 18; TEMP 37.1; O2SAT 97
[2019-03-25] MEDS: Ibuprofen 200 MG Tablet PO (08:58)
[2019-03-25] MEDS: Docusate Sodium 100 MG Capsule PO (08:59)
[2019-03-25] MEDS: Famotidine 20 MG Tablet PO (08:59)
[2019-03-25] MEDS: DULoxetine Hcl 60 MG Capsule PO (08:59)
[2019-03-25] MEDS: Baclofen 10 MG Tablet PO (08:59)
[2019-03-25] MEDS: Loratadine 10 MG Tablet PO (08:59)
[2019-03-25] MEDS: Pantoprazole Sodium 40 MG Tablet PO (08:59)
[2019-03-25] MEDS: Ensure Clear 120 ML Liquid PO (09:07)
--- NOTE | 2019-03-25 09:46 | PCM.DC ---
- Discharge Diagnoses Current Active Problems: (1) History of stage IV ischial wound requiring prior diverting ostomy, acute intractable abdominal pain status post reversal (2) Cough, dyspnea complaints, oxygen requirements with left greater than right patchy infiltrates, ? Atelectasis versus Pneumonia, Acquired in Hospital (3) History of necrotizing fasciitis status post R BKA, VAC in place upon admission, transitioned to daily wound care (4) Hypertension (5) Hyperlipidemia (6) Diabetes mellitus type II (7) Anxiety and depression (8) Obesity (9) GERD You will use the following diet at home:: Calorie/Carbohydrate Controlled (specify 1200, 1400, etc) - ADA 1800, Cardiac diet Your food should be the consistency of: Regular Your liquids should be the consistency of: Regular/Thin Discharge Activity: May not drive while taking narcotic pain medications., - - Encourage regular activity. Please be out of bed to table/chair with all meals. Please move even if it is chair to bed at least 1x hourly to assist with your pulmonary status improvement. May shower in (days): 0 Weight Bearing Status: Weight bearing as tolerated Additional Activity Instructions:: R Stump Dressing Changes: Daily aquacel AG application until re-evaluation per [facility] for consideration of re-application of VAC. Call your doctor if your incision/area has: Continuous Slow Oozing, Sudden Increased Bleeding, Increased Pain/ Swelling, Increased Redness, Foul Smelling Discharge, Swelling at the incision site Call your doctor if you observe: Fever of 101 or Higher, Inability to urinate, Inability to have a bowel movement, Shortness of breath, Dizziness, Fainting spells, Chest pain, Uncontrolled pain Additional Dressing/Incision Instructions:: Wet-to-dry dressings of the colostomy site change daily--saline soaked Kerlix squeeze excess saline out well then placed, dont allow the soaked kerlix to be on the normal surrounding skin. ABD pad and tape over the top. Instructions: What Is Pneumonia?, Preventing Pneumonia, Treating Pneumonia Additional Instructions: Please complete regimen of azithromycin and omnicef for suspected pneumonia with as needed albuterol inhaler. Mucinex may be continued for cough. Please follow-up with your primary care as recommended. Allergies/Adverse Reactions: Allergies fentanyl Allergy (Verified 03/22/19 17:58) Other CONFUSION morphine Adverse Reaction (Verified 03/22/19 17:58) Upset Stomach CONFUSION Medications to take at Discharge Baclofen 10 mg PO BID 04/26/16 pantoprazole 40 mg tablet,delayed release 40 mg PO QDAY 03/04/18 pregabalin 100 mg capsule 100 mg PO TID 07/22/18 clonidine HCl 0.1 mg tablet 0.1 mg PO QHS tab 08/24/18 hydrocodone 5 mg-acetaminophen 325 mg tablet 1 tab PO Q6H PRN 10/19/18 shower chair #1 ea 01/05/19 pen needle, diabetic 29 gauge x 1/2 See Dose Instructions .ROUTE .MEDSUPPLY #100 ea 02/03/19 ranitidine 150 mg tablet 150 mg PO BID #180 tab 02/23/19 duloxetine 30 mg capsule,delayed release 60 mg PO BID #60 cap 03/15/19 Atorvastatin Calcium 40 mg PO DAILY 03/16/19 Clopidogrel Bisulfate [Clopidogrel] 75 mg PO DAILY 03/16/19 Docusate Sodium [Colace] 100 mg PO BID PRN 03/16/19 Dulaglutide [Trulicity] 1.5 mg SUBCUT QWEEK 03/16/19 Insulin Detemir [Levemir FlexPen] 50 units SUBCUT QHS 03/16/19 Insulin Lispro [Humalog KwikPen] 12 unit SUBCUT TIDAC 03/16/19 Insulin Lispro [Humalog KwikPen] See Protocol SUBCUT ACHS 03/16/19 Loratadine 10 mg PO DAILY 03/16/19 Wheelchair 0 .ROUTE .MEDSUPPLY 03/16/19 Albuterol IH (ProAir) [Proair Hfa] 1 - 2 puff INHALATION Q4H PRN PRN #1 inhaler 03/25/19 Azithromycin 500 mg PO DAILY #3 tab 03/25/19 Cefdinir [Omnicef [equiv]] 300 mg PO Q12H #10 cap 03/25/19 Guaifenesin [Mucinex] 1,200 mg PO BID #10 tbmp.12hr 03/25/19 Oxycodone HCl/Acetaminophen [Percocet 5/325] 1 - 2 tab PO Q6H PRN PRN 5 Days #30 tab 03/25/19 The following prescriptions were given: Azithromycin 500 mg PO DAILY #3 tab Transmission Status: Pending to [facility] Guaifenesin [Mucinex] 1,200 mg PO BID #10 tbmp.12hr Transmission Status: Pending to [facility] Cefdinir [Omnicef [equiv]] 300 mg PO Q12H #10 cap Transmission Status: Pending to [facility] Oxycodone HCl/Acetaminophen [Percocet 5/325] 1 - 2 tab PO Q6H PRN PRN 5 Days #30 tab PRN Reason: Pain Transmission Status: Received by [facility] Albuterol IH (ProAir) [Proair Hfa] 1 - 2 puff INHALATION Q4H PRN PRN #1 inhaler PRN Reason: dyspnea, wheezing Transmission Status: Pending to [facility] Primary Care Physician: Sasha Rodriguez MD [Primary Care Provider] - Please follow up with your Primary Care Physician in: Follow-up within 2-3 days to review admission. Test Results: Test results from this visit will be discussed in further detail at your follow-up appointment, if applicable. Please Follow Up With: Jim Meraz MD When: Call the office for follow-up appointment 2 weeks Proposed Discharge Date: 03/25/19
[2019-03-25] MEDS: Enoxaparin 40 MG/0.4 ML Syringe SC (09:54)
[2019-03-25] MEDS: 0.9% NaCl Peripheral Flush Adult/Peds IV (09:55)
[2019-03-25] MEDS: Ceftriaxone 1 GM/50 ML BAG IV (09:55)
--- NOTE | 2019-03-25 11:57 | PCM.DC.SUM ---
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) Open wound of right lower leg with complication (Chronic) open surgical wound anterior aspect right BKA stump Infection of amputation stump, right lower extremity (Chronic) infected seroma anterior aspect right BKA stump History of necrotizing fasciitis (Chronic) Status post colostomy (Chronic) Smoker (Chronic) 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 (Chronic) right BKA Tobacco abuse (Chronic) Anxiety and depression (Chronic) History of gangrene (Chronic) Pressure sore of left ischium, stage 4 (Chronic) Hx of right BKA (Chronic) Chronic pain (Chronic) PVD (peripheral vascular disease) (Chronic) HLD (hyperlipidemia) (Chronic) DM2 (diabetes mellitus, type 2) (Chronic) Benign essential HTN (Chronic) Hospital Course and Treatment Imaging Results: 03/25/19 05:55 CXR [Chest PA and Lateral] [RAD] AM (NON MEDS) Consultations 03/23/19 07:46 Consult: Onc/Wound/hand spinner Routine Comment: Operations: - - Loop colostomy reversal Summary of Care Provided: The patient is a 48 year old F who presented for an elective loop colostomy reversal. Dr. Meraz performed a loop colostomy reversal on 03/22/19. Patient tolerated the procedure well. Once pain control was achieved, patient felt more comfortable. Patient also developed a productive cough with low-grade temperature. CXR was obtained demonstrating bibasilar patchy infiltrates worse on left. Follow-up CXR was recommended. Repeat CXR was obtained on 03/25 demonstrating residual bibasilar infiltrates although there has been moderate improvement. Patient was placed on oral antibiotics for treatment of possible pneumonia as an outpatient. Upon discharge, pain notes discomfort at the wound site. Dressing was changed this morning. She is tolerating a diet. Denies nausea, vomiting. Positive flatus. - Physical Exam General: Alert, Oriented x3, Cooperative Abdomen: Bowel Sounds Present, Soft, Tender - LLQ, - - LLQ- open wound with healthy granulation tissue. Packed with saline dampened gauze and ABD pad placed over top. Vital Signs Temp Pulse Resp BP Pulse Ox 98.7 F 82 18 114/65 97 03/25/19 08:50 03/25/19 08:50 03/25/19 08:50 03/25/19 08:50 03/25/19 08:50 Oxygen Flow Rate (L/min) 2 Oxygen Delivery Method Room Air Weight: 227 lb 15.327 oz Body Mass Index (BMI) 34.6 Finger Stick Blood Glucose 250 Intake and Output for Last 24 Hours 03/23/19 03/24/19 03/25/19 23:59 23:59 23:59 Intake Total 4908 / 4908 3066 / 3903 937 / 937 Output Total 3125 / 3125 3200 / 3200 Balance 1783 / 1783 -134 / 703 937 / 937 Microbiology Past 72 Hours 03/24/19 10:45 Gram Stain - Final Sputum, Expectorated/Coughed 03/24/19 12:05 Streptococcus pneumoniae Antigen (M - Final Urine, Clean Catch 03/24/19 12:05 Legionella Antigen - Final Urine, Clean Catch POC Glucose 03/25/19 03/24/19 03/24/19 06:39 21:47 15:19 POC Glucose 79 155 H 188 H Discharge Diet: 1800 Calorie Control Diet Discharge Activity: May not drive while taking narcotic pain medications., - - Encourage regular activity. Please be out of bed to table/chair with all meals. Please move even if it is chair to bed at least 1x hourly to assist with your pulmonary status improvement. May shower in (days): 0 Weight Bearing Status: Weight bearing as tolerated Additional Activity Instructions:: R Stump Dressing Changes: Daily aquacel AG application until re-evaluation per [facility] for consideration of re-application of VAC. Call your doctor if your incision/area has: Continuous Slow Oozing, Sudden Increased Bleeding, Increased Pain/ Swelling, Increased Redness, Foul Smelling Discharge, Swelling at the incision site Call your doctor if you observe: Fever of 101 or Higher, Inability to urinate, Inability to have a bowel movement, Shortness of breath, Dizziness, Fainting spells, Chest pain, Uncontrolled pain Additional Dressing/Incision Instructions:: Wet-to-dry dressings of the colostomy site change daily--saline soaked Kerlix squeeze excess saline out well then placed, dont allow the soaked kerlix to be on the normal surrounding skin. ABD pad and tape over the top. Home Medications: Medications to take at Discharge Baclofen 10 mg PO BID 04/26/16 pantoprazole 40 mg tablet,delayed release 40 mg PO QDAY 03/04/18 pregabalin 100 mg capsule 100 mg PO TID 07/22/18 clonidine HCl 0.1 mg tablet 0.1 mg PO QHS tab 08/24/18 hydrocodone 5 mg-acetaminophen 325 mg tablet 1 tab PO Q6H PRN 10/19/18 shower chair #1 ea 01/05/19 pen needle, diabetic 29 gauge x 1/2 See Dose Instructions .ROUTE .MEDSUPPLY #100 ea 02/03/19 ranitidine 150 mg tablet 150 mg PO BID #180 tab 02/23/19 duloxetine 30 mg capsule,delayed release 60 mg PO BID #60 cap 03/15/19 Atorvastatin Calcium 40 mg PO DAILY 03/16/19 Clopidogrel Bisulfate [Clopidogrel] 75 mg PO DAILY 03/16/19 Docusate Sodium [Colace] 100 mg PO BID PRN 03/16/19 Dulaglutide [Trulicity] 1.5 mg SUBCUT QWEEK 03/16/19 Insulin Detemir [Levemir FlexPen] 50 units SUBCUT QHS 03/16/19 Insulin Lispro [Humalog KwikPen] 12 unit SUBCUT TIDAC 03/16/19 Insulin Lispro [Humalog KwikPen] See Protocol SUBCUT ACHS 03/16/19 Loratadine 10 mg PO DAILY 03/16/19 Wheelchair 0 .ROUTE .MEDSUPPLY 03/16/19 Albuterol IH (ProAir) [Proair Hfa] 1 - 2 puff INHALATION Q4H PRN PRN #1 inhaler 03/25/19 Azithromycin 500 mg PO DAILY #3 tab 03/25/19 Cefdinir [Omnicef [equiv]] 300 mg PO Q12H #10 cap 03/25/19 Guaifenesin [Mucinex] 1,200 mg PO BID #10 tbmp.12hr 03/25/19 Ibuprofen [Motrin] 400 mg PO Q6H PRN PRN #30 tab 03/25/19 Oxycodone HCl/Acetaminophen [Percocet 5/325] 1 - 2 tab PO Q6H PRN PRN 5 Days #30 tab 03/25/19 Following Prescrptions Were Given to Patient: Azithromycin 500 mg PO DAILY #3 tab Transmission Status: Received by [facility] Ibuprofen [Motrin] 400 mg PO Q6H PRN PRN #30 tab PRN Reason: Mild Pain (-11/15) Transmission Status: Received by [facility] Guaifenesin [Mucinex] 1,200 mg PO BID #10 tbmp.12hr Transmission Status: Received by [facility] Cefdinir [Omnicef [equiv]] 300 mg PO Q12H #10 cap Transmission Status: Received by [facility] Oxycodone HCl/Acetaminophen [Percocet 5/325] 1 - 2 tab PO Q6H PRN PRN 5 Days #30 tab PRN Reason: Pain Transmission Status: Received by [facility] Albuterol IH (ProAir) [Proair Hfa] 1 - 2 puff INHALATION Q4H PRN PRN #1 inhaler PRN Reason: dyspnea, wheezing Transmission Status: Received by [facility] Primary Care Physician: Sasha Rodriguez MD [Primary Care Provider] - Please follow up with your Primary Care Physician in: Follow-up within 2-3 days to review admission. Please Follow Up With: Jim Meraz MD When: 2 weeks Please Follow Up With: Sasha Rodriguez MD When: 2 to 3 days Patient Instructions: What Is Pneumonia?, Preventing Pneumonia, Treating Pneumonia Additional Instructions: Okay to take ibuprofen 400-600 mg PO q6hr PRN along with the percocet. Avoid Tylenol since there is already Tylenol in the percocet. Take all pain meds with food. percocet can cause constipation recommend taking daily stool softener (i.e. Colace/docusate) while taking the pain meds. Recommend starting some MiraLAX in a couple of days if no bowel movement. Minutes spent on discharge:: 20 Patient Condition:: Stable Medical Necessity - Tobacco Use Smoking Status: Current every day smoker Tobacco Use: Cigarettes Meaningful Use Info Meaningful Use Diagnoses (Choose all that apply): None applicable Code Visit Inpatient E&M: 05507 Disch Hosp - No charge
[2019-03-25 12:15] VITALS: BP 112/68; PULSE 89; RESP 16; TEMP 37; O2SAT 96
--- NOTE | 2019-03-25 12:45 | CASEMGMT ---
ADIN HALEY NOTE: Pt has been discharged. Resumption order for [facility], and discharge instructions and summary faxed to [facility] @ . Call placed to Blayne @ [facility]. He was made aware pt has been discharged home today. He states resumption of care will be either today or tomorrow. Hung HEATH RN CM
== END 2019-03-25 12:30 | disposition home health service (06) | DRG 231 ==
PROVIDERS: Anesthesiology; Admitting Provider Surgery; Family Provider Internal Medicine; PCP Internal Medicine; Referring Provider Surgery; Visit Provider Family Medicine
PROC: 0D1E4Z4 Bypass Large Intestine to Cutaneous, Percutaneous Endoscopic Approach (ICD-10-PCS; CPT 44188; principal; 2019-03-22 10:40)
DX: Z43.3 Encounter for attention to colostomy (principal); E78.5 Hyperlipidemia, unspecified; E11.40 Type 2 diabetes mellitus with diabetic neuropathy, unspecified; I73.00 Raynaud's syndrome without gangrene; Z79.4 Long term (current) use of insulin; E66.9 Obesity, unspecified; Z68.34 Body mass index [BMI] 34.0-34.9, adult; I10 Essential (primary) hypertension; F17.210 Nicotine dependence, cigarettes, uncomplicated; F32.9 Major depressive disorder, single episode, unspecified; F41.9 Anxiety disorder, unspecified; T87.89 Other complications of amputation stump; L97.919 Non-pressure chronic ulcer of unspecified part of right lower leg with unspecified severity; Y83.8 Other surgical procedures as the cause of abnormal reaction of the patient, or of later complication, without mention of misadventure at the time of the procedure; E11.51 Type 2 diabetes mellitus with diabetic peripheral angiopathy without gangrene; E11.622 Type 2 diabetes mellitus with other skin ulcer; L97.811 Non-pressure chronic ulcer of other part of right lower leg limited to breakdown of skin
CPT/HCPCS: 36415; 71046; 80048; 82962; 83036; 85025; 85027; 87070; 87205; 87449; 94640; 97162; 99406; J7030; A4216; J2405

== ENCOUNTER 2019-05-05 10:00 | Outpatient (RCR) | payer MEDICARE, MEDICAID, SELFPAY ==
[2019-03-22 16:20] VITALS: BMI 34.6
[2019-04-08 00:50] VITALS: BP 116/70; PULSE 89; RESP 18; TEMP 36.7
[2019-04-09 14:15] VITALS: BMI 30.2
[2019-04-12 13:27] VITALS: BP 137/69; PULSE 105; RESP 16; TEMP 37.3; BMI 30.2
--- NOTE | 2019-04-12 14:52 | PCM.WC.PN ---
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 Code(s): T87.89 - Other complications of amputation stump; L97.919 - Non-pressure chronic ulcer of unspecified part of right lower leg with unspecified severity (2) Decubitus ulcer of left buttock Status: Acute Code(s): L89.329 - Pressure ulcer of left buttock, unspecified stage (3) Smoker Status: Chronic Code(s): F17.200 - Nicotine dependence, unspecified, uncomplicated (4) 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 Status: Chronic Code(s): T87.89 - Other complications of amputation stump; M79.604 - Pain in right leg Comment: right BKA Type of Wound Date of Service: 04/12/19 Chief Complaint: Left lower abdomen with non healing sore from a boil that popped a few weeks ago. History of Wound: 48 year old woman presents with pain in her right BKA stump that has worsened over the last several months. She states she underwent the right BKA about 4 years ago. About 6 months postop she needed additional surgery with removal of scar tissue. She is also in the process of getting her prosthesis revised as well. She denies any fever. She denies any recent trauma. She denies any recent infection. She denies any drainage. On 12/28/18 she underwent 1. 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 2. Partial ostectomy tibia for osteomyelitis. 3. Complex secondary wound closure revision reconstruction. She denies any fever or nausea and vomiting today. Wound care is collagen hydrogel. She has new ulcer of left buttock near the perianal area. She had her cholostomy reversed a few weeks ago and she has been sitting more due to using her wheelchair more due to her right BKA stump ulcer. Progress of Wound: Improvement. New right buttock ulcer near perianal area. - Physical Exam Vital Signs Temp Pulse Resp BP 99.1 F 105 H 16 137/69 H 04/12/19 13:27 04/12/19 13:27 04/12/19 13:27 04/12/19 13:27 General: Alert, Oriented x3, Cooperative HEENT: Atraumatic Oral: Moist Mucosa Lungs: Normal air movement Cardiovascular: Regular rate Extremities: No edema, Capillary Refill Less than 3 Seconds Skin: Ulcer/ Wound - Right BKA stump ulcer and new left buttock ulcer near perianal area. Wound Measurements and Assessment WC - Nurse 1 - General Ulcer Measurement Start: 04/12/19 13:27 Freq: Status: Active Protocol: Activity Type Activity Date Activity User E-Sign Co-Sign Detail Recorded Client Recorded Date Recorded By Document 04/12/19 13:27 MW [id number] 04/12/19 13:38 MW 04/12/19 13:27 Wound Center Nurse 1 [Ulcer Assessment] #6 left simona-rectal wound -Combined with other wound No -Current Size (cm) - Length 1.4 -Current Size (cm) - Width 0.3 -Current Size (cm) - Depth 0.2 -Total Square Cm 0.42 -Date of Last Picture (Recall this 04/12/19 field) -Photo Taken Yes -Epithelialization None Present -Tunneling No -Undermining/Tunneling No -Circular Undermining No -Exudate Amt None Present -Wound Margin Flat & Intact -Granulation Amt Small (1-33%) -Granulation Quality [place] -Slough/Fibrin Yes -Necrosis Amt Small (1-33%) -Necrotic Tissue Type Adherent Slough -Structure Exposed N/A -Texture (Simona-wound Skin Appearance) Assessed, Scarring -Moisture (Simona-wound Skin Appearance No Abnormality, ) Dry/Scaly -Color (Simona-wound Skin Appearance) No Abnormality, Assessed -Temperature (Simona-wound Skin No Abnormality Appearance) (Pt Warm) -Tenderness on Palpation (Simona-wound No Skin Appearance) -Ulcer Cleansing Rinsed/ Irrigated with Saline -Foul Odor after Cleansing No -Anesthetic Used 5% Lidocaine Gel #5 right yusuf -Combined with other wound No -Current Size (cm) - Length 0.1 -Current Size (cm) - Width 0.1 -Current Size (cm) - Depth 0.1 -Total Square Cm 0.01 -Date of Last Picture (Recall this 04/12/19 field) -Photo Taken Yes -Epithelialization Large 67-100% -Tunneling No -Undermining/Tunneling No -Circular Undermining No -Exudate Amt None Present -Wound Margin Flat & Intact -Granulation Amt None Present (0 %) -Granulation Quality N/A -Slough/Fibrin Yes -Necrosis Amt Small (1-33%) -Necrotic Tissue Type Adherent Slough -Structure Exposed N/A -Texture (Simona-wound Skin Appearance) Assessed, Scarring -Moisture (Simona-wound Skin Appearance No Abnormality, ) Assessed -Color (Simona-wound Skin Appearance) No Abnormality, Assessed -Temperature (Simona-wound Skin No Abnormality Appearance) (Pt Warm) -Tenderness on Palpation (Simona-wound No Skin Appearance) -Ulcer Cleansing Rinsed/ Irrigated with Saline -Foul Odor after Cleansing No -Anesthetic Used 5% Lidocaine Gel [Edema Assessment] -Lower Limb Edema Present No WC - Nurse 2 - General Ulcer CM Notes Start: 04/12/19 13:27 Freq: Status: Active Protocol: Activity Type Activity Date Activity User E-Sign Co-Sign Detail Recorded Client Recorded Date Recorded By Document 04/12/19 13:52 SHAYNA [id number] 04/12/19 13:58 SHAYNA 04/12/19 13:52 Wound Center Nurse 2 [Procedure/Treatment] #6 left simona-rectal wound -Time 13:57 -Correct Patient Yes -Correct Side, Site, Position Yes -Correct Procedure Yes -Procedure Performed Yes -Type of Procedure Debridement -Clinical Debridement Subcutaneous -Post Debridement Size (cm) - Length 1.2 -Post Debridement Size (cm) - Width 0.5 -Post Debridement Size (cm) - Depth 0.2 -Total Square Cm 0.60 -Wound/Ulcer Outcome Not Healed -Ulcer Cleansing Rinsed/ Irrigated with Saline -Foul Odor after Cleansing No -Bioengineered Tissue No -Bleeding Controlled with Pressure -Offloading No -Treatment Response Procedure Tolerated Well #5 right yusuf -Time 13:52 -Correct Patient Yes -Correct Side, Site, Position Yes -Correct Procedure Yes -Procedure Performed Yes -Type of Procedure Debridement -Clinical Debridement Subcutaneous -Post Debridement Size (cm) - Length 0.7 -Post Debridement Size (cm) - Width 0.2 -Post Debridement Size (cm) - Depth 0.2 -Total Square Cm 0.14 -Wound/Ulcer Outcome Not Healed -Ulcer Cleansing Rinsed/ Irrigated with Saline -Foul Odor after Cleansing No -Bioengineered Tissue No -Bleeding Controlled with Pressure -Offloading Yes -Type of Offloading Knee Walker -Treatment Response Procedure Tolerated Well [See Physician Procedure note for Specifics] Pain Scale: 0-10 Numeric [Pain] -Is Patient Pain Free? Yes Musculoskeletal: No Tenderness to Palpation of Joints or Extremities Neurological: Neuro grossly intact Psych/Mental Status: Normal Affect, Appropriate Debridement Note Post-Debridement Measurements/Treatment WC - Nurse 2 - General Ulcer CM Notes Start: 04/12/19 13:27 Freq: Status: Active Protocol: Activity Type Activity Date Activity User E-Sign Co-Sign Detail Recorded Client Recorded Date Recorded By Document 04/12/19 13:52 [id number] 04/12/19 13:58 SHAYNA 04/12/19 13:52 Wound Center Nurse 2 #6 left simona-rectal wound -Time 13:57 -Correct Patient Yes -Correct Side, Site, Position Yes -Correct Procedure Yes -Procedure Performed Yes -Type of Procedure Debridement -Clinical Debridement Subcutaneous -Post Debridement Size (cm) - Length 1.2 -Post Debridement Size (cm) - Width 0.5 -Post Debridement Size (cm) - Depth 0.2 -Total Square Cm 0.60 -Wound/Ulcer Outcome Not Healed -Ulcer Cleansing Rinsed/ Irrigated with Saline -Foul Odor after Cleansing No -Bioengineered Tissue No -Bleeding Controlled with Pressure -Offloading No -Treatment Response Procedure Tolerated Well #5 right yusuf -Time 13:52 -Correct Patient Yes -Correct Side, Site, Position Yes -Correct Procedure Yes -Procedure Performed Yes -Type of Procedure Debridement -Clinical Debridement Subcutaneous -Post Debridement Size (cm) - Length 0.7 -Post Debridement Size (cm) - Width 0.2 -Post Debridement Size (cm) - Depth 0.2 -Total Square Cm 0.14 -Wound/Ulcer Outcome Not Healed -Ulcer Cleansing Rinsed/ Irrigated with Saline -Foul Odor after Cleansing No -Bioengineered Tissue No -Bleeding Controlled with Pressure -Offloading Yes -Type of Offloading Knee Walker -Treatment Response Procedure Tolerated Well Pain Scale: 0-10 Numeric Is Patient Pain Free? Yes Wound debrided: Right BKA stump ulcer Laterality: Right Type of Debridement: Excisional debridement Anesthesia Used: 4% Lidocaine Solution, 5% Lidocaine Gel Depth: Down to and including healthy tissue, in the subcutaneous layer Percentage of wound debrided: 100 Instrument Used: 3mm curette Tissue Removed: Subcutaneous tissue and slough Severity: Limited To Skin Breakdown Amount of bleeding with debridement: Mild Bleeding Controlled with: Compression and gauze Patient tolerated procedure well - Additional Wound Wound debrided: Left buttock ulcer near perianal area Laterality: Left Type of Debridement: Excisional debridement Anesthesia Used: 5% Lidocaine Gel Depth: Down to and including healthy tissue, in the subcutaneous layer Percentage of wound debrided: 100 Instrument Used: 3mm curette Tissue Removed: Subcutaneous tissue and slough Severity: Limited To Skin Breakdown Amount of bleeding with debridement: Mild Bleeding Controlled with: Compression and gauze Patient tolerated procedure: Patient tolerated procedure well Assessment/Plan Assessment: 1. Open wound of right leg with complication. 2. Pressure ulcer left buttock near perianal area. 3. Infection of amputation stump of right lower extremity. 4. Pain of amuputation stump of right lower extremity. 5. Diabetes mellitus, type 2. 6. Tobacco Abuse disorder Plan: Patient was seen and examined in the wound center today. She recently complained of pain inn her right BKA stump that had worsened over the last several months. She states she underwent the right BKA about 4 years ago. About 6 months postop she needed additional surgery with removal of scar tissue. She is also in the process of getting her prosthesis revised as well. On 12/28/18 she had a surgical preparation right BKA stump with incision and drainage and excisional debridement chronic infected seroma anterior aspect of stump and partial ostectomy tibia for osteomyelitis and complex secondary wound closure revision reconstruction. She was sent home with a wound VAC to the right anterior open area. The wound VAC was stopped due to difficulty packing the wound. She has been doing daily collagen hydrogel with adaptic over right BKA stump ulcer. Stopped SNAP VAC due to decrease in size of ulcer. Pathology from 12/28/18 right tibia bone negative for acute osteomyelitis. The wound cultures of the bone and soft tissue were negative for any organisms. Her pain management is controlling her pain medications. Today she has a new left buttock ulcer near the simona-anal area. She had a reveral of her cholostomy a couple weeks ago. Instructed her keep this area clean with soap and water and apply daily silver dressing to this area. Follow up in two weeks. Code Visit [id number]: [id number] Annalisa subq tissue 20 sq cm/<
[2019-04-26 10:49] VITALS: BP 100/70; PULSE 97; RESP 16; TEMP 36.5; BMI 30.2
--- NOTE | 2019-04-26 21:41 | PCM.WC.PN ---
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 Code(s): T87.89 - Other complications of amputation stump; L97.919 - Non-pressure chronic ulcer of unspecified part of right lower leg with unspecified severity (2) Decubitus ulcer of left buttock Status: Acute Code(s): L89.329 - Pressure ulcer of left buttock, unspecified stage (3) Smoker Status: Chronic Code(s): F17.200 - Nicotine dependence, unspecified, uncomplicated (4) 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 Status: Chronic Code(s): T87.89 - Other complications of amputation stump; M79.604 - Pain in right leg Comment: right BKA Type of Wound Date of Service: 04/26/19 Chief Complaint: Left lower abdomen with non healing sore from a boil that popped a few weeks ago. History of Wound: 48 year old woman presents with pain in her right BKA stump that has worsened over the last several months. She states she underwent the right BKA about 4 years ago. About 6 months postop she needed additional surgery with removal of scar tissue. She is also in the process of getting her prosthesis revised as well. She denies any fever. She denies any recent trauma. She denies any recent infection. She denies any drainage. On 12/28/18 she underwent 1. 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 2. Partial ostectomy tibia for osteomyelitis. 3. Complex secondary wound closure revision reconstruction. She denies any fever or nausea and vomiting today. Wound care is collagen hydrogel. She has new ulcer of left buttock near the perianal area which healed after one week of wound care. She has made sure she has been off loading more and that seems to have helped. Progress of Wound: Right BKA stump ulcer improved. Left simona-rectal ulcer is healed. - Physical Exam Vital Signs Temp Pulse Resp BP 97.7 F L 97 16 100/70 04/26/19 10:49 04/26/19 10:49 04/26/19 10:49 04/26/19 10:49 General: Alert, Oriented x3, Cooperative HEENT: Atraumatic Oral: Moist Mucosa Lungs: Normal air movement Cardiovascular: Regular rate Extremities: No edema, Capillary Refill Less than 3 Seconds, Tenderness Skin: Ulcer/ Wound - Left BKA stump ulcer Wound Measurements and Assessment WC - Nurse 1 - General Ulcer Measurement Start: 04/12/19 13:27 Freq: Status: Active Protocol: Activity Type Activity Date Activity User E-Sign Co-Sign Detail Recorded Client Recorded Date Recorded By Document 04/26/19 10:49 MW [id number] 04/26/19 10:55 MW 04/26/19 10:49 Wound Center Nurse 1 [Ulcer Assessment] #6 left simona-rectal wound -Combined with other wound No -Current Size (cm) - Length 0.1 -Current Size (cm) - Width 0.1 -Current Size (cm) - Depth 0.1 -Total Square Cm 0.01 -Photo Taken No -Epithelialization Medium 34-66% -Tunneling No -Undermining/Tunneling No -Circular Undermining No -Exudate Amt None Present -Wound Margin Flat & Intact -Granulation Amt None Present (0 %) -Granulation Quality N/A -Slough/Fibrin Yes -Necrosis Amt Small (1-33%) -Necrotic Tissue Type Adherent Slough -Structure Exposed N/A -Texture (Simona-wound Skin Appearance) Assessed, Scarring -Moisture (Simona-wound Skin Appearance No Abnormality, ) Assessed -Color (Simona-wound Skin Appearance) No Abnormality, Assessed -Temperature (Simona-wound Skin No Abnormality Appearance) (Pt Warm) -Tenderness on Palpation (Simona-wound Yes Skin Appearance) -Ulcer Cleansing Rinsed/ Irrigated with Saline -Foul Odor after Cleansing No -Anesthetic Used 5% Lidocaine Gel #5 right yusuf -Combined with other wound No -Current Size (cm) - Length 0.1 -Current Size (cm) - Width 0.1 -Current Size (cm) - Depth 0.1 -Total Square Cm 0.01 -Photo Taken No -Epithelialization Medium 34-66% -Tunneling No -Undermining/Tunneling No -Circular Undermining No -Exudate Amt None Present -Wound Margin Flat & Intact -Granulation Amt None Present (0 %) -Granulation Quality N/A -Slough/Fibrin Yes -Necrosis Amt Small (1-33%) -Necrotic Tissue Type Adherent Slough -Structure Exposed N/A -Texture (Simona-wound Skin Appearance) Assessed, Scarring -Moisture (Simona-wound Skin Appearance No Abnormality, ) Assessed -Color (Simona-wound Skin Appearance) No Abnormality, Assessed -Temperature (Simona-wound Skin No Abnormality Appearance) (Pt Warm) -Tenderness on Palpation (Simona-wound No Skin Appearance) -Ulcer Cleansing Rinsed/ Irrigated with Saline -Foul Odor after Cleansing No -Anesthetic Used 5% Lidocaine Gel [Edema Assessment] -Lower Limb Edema Present No WC - Nurse 2 - General Ulcer CM Notes Start: 04/12/19 13:27 Freq: Status: Active Protocol: Activity Type Activity Date Activity User E-Sign Co-Sign Detail Recorded Client Recorded Date Recorded By Document 04/26/19 11:05 [id number] 04/26/19 11:11 04/26/19 11:05 Wound Center Nurse 2 [Procedure/Treatment] #6 left simona-rectal wound -Correct Patient No -Correct Side, Site, Position No -Correct Procedure No -Procedure Performed No -Post Debridement Size (cm) - Length 0 -Post Debridement Size (cm) - Width 0 -Post Debridement Size (cm) - Depth 0 -Total Square Cm 0 -Wound/Ulcer Outcome Healed- Epithelialized #5 right yusuf -Time 11:10 -Correct Patient Yes -Correct Side, Site, Position Yes -Correct Procedure Yes -Procedure Performed Yes -Type of Procedure Debridement -Clinical Debridement Subcutaneous -Post Debridement Size (cm) - Length 0.5 -Post Debridement Size (cm) - Width 0.2 -Post Debridement Size (cm) - Depth 0.5 -Total Square Cm 0.10 -Wound/Ulcer Outcome Not Healed -Ulcer Cleansing Rinsed/ Irrigated with Saline -Foul Odor after Cleansing No -Bioengineered Tissue No -Bleeding Controlled with Pressure -Offloading Yes -Type of Offloading Knee Walker -Treatment Response Procedure Tolerated Well [See Physician Procedure note for Specifics] Pain Scale: 0-10 Numeric [Pain] -Is Patient Pain Free? Yes Musculoskeletal: No Tenderness to Palpation of Joints or Extremities Neurological: Neuro grossly intact Psych/Mental Status: Normal Affect, Appropriate Debridement Note Post-Debridement Measurements/Treatment WC - Nurse 2 - General Ulcer CM Notes Start: 04/12/19 13:27 Freq: Status: Active Protocol: Activity Type Activity Date Activity User E-Sign Co-Sign Detail Recorded Client Recorded Date Recorded By Document 04/12/19 13:52 [id number] 04/12/19 13:58 Document 04/26/19 11:05 [id number] 04/26/19 11:11 04/12/19 04/26/19 13:52 11:05 Wound Center Nurse 2 #6 left simona-rectal wound -Time 13:57 -Correct Patient Yes No -Correct Side, Site, Position Yes No -Correct Procedure Yes No -Procedure Performed Yes No -Type of Procedure Debridement -Clinical Debridement Subcutaneous -Post Debridement Size (cm) - Length 1.2 0 -Post Debridement Size (cm) - Width 0.5 0 -Post Debridement Size (cm) - Depth 0.2 0 -Total Square Cm 0.60 0 -Wound/Ulcer Outcome Not Healed Healed- Epithelialized -Ulcer Cleansing Rinsed/ Irrigated with Saline -Foul Odor after Cleansing No -Bioengineered Tissue No -Bleeding Controlled with Pressure -Offloading No -Treatment Response Procedure Tolerated Well #5 right yusuf -Time 13:52 11:10 -Correct Patient Yes Yes -Correct Side, Site, Position Yes Yes -Correct Procedure Yes Yes -Procedure Performed Yes Yes -Type of Procedure Debridement Debridement -Clinical Debridement Subcutaneous Subcutaneous -Post Debridement Size (cm) - Length 0.7 0.5 -Post Debridement Size (cm) - Width 0.2 0.2 -Post Debridement Size (cm) - Depth 0.2 0.5 -Total Square Cm 0.14 0.10 -Wound/Ulcer Outcome Not Healed Not Healed -Ulcer Cleansing Rinsed/ Rinsed/ Irrigated with Irrigated with Saline Saline -Foul Odor after Cleansing No No -Bioengineered Tissue No No -Bleeding Controlled with Pressure Pressure -Offloading Yes Yes -Type of Offloading Knee Walker Knee Walker -Treatment Response Procedure Procedure Tolerated Well Tolerated Well Pain Scale: 0-10 Numeric Is Patient Pain Free? Yes Yes Wound debrided: Right BKA anterior ulcer Laterality: Right Type of Debridement: Excisional debridement Anesthesia Used: 4% Lidocaine Solution, 5% Lidocaine Gel Depth: Down to and including healthy tissue, in the subcutaneous layer Percentage of wound debrided: 100 Instrument Used: 3mm curette Tissue Removed: Subcutaneous tissue and slough Severity: Limited To Skin Breakdown Amount of bleeding with debridement: Mild Bleeding Controlled with: Pressure Patient tolerated procedure well Assessment/Plan Assessment: 1. Open wound of right leg with complication. 2. Pressure ulcer left buttock near perianal area. 3. Infection of amputation stump of right lower extremity. 4. Pain of amuputation stump of right lower extremity. 5. Diabetes mellitus, type 2. 6. Tobacco Abuse disorder Plan: Patient was seen and examined in the wound center today. She recently complained of pain inn her right BKA stump that had worsened over the last several months. She states she underwent the right BKA about 4 years ago. About 6 months postop she needed additional surgery with removal of scar tissue. She is also in the process of getting her prosthesis revised as well. On 12/28/18 she had a surgical preparation right BKA stump with incision and drainage and excisional debridement chronic infected seroma anterior aspect of stump and partial ostectomy tibia for osteomyelitis and complex secondary wound closure revision reconstruction. She was sent home with a wound VAC to the right anterior open area. The wound VAC was stopped due to difficulty packing the wound. She has been doing daily collagen hydrogel with adaptic over right BKA stump ulcer. Pathology from 12/28/18 right tibia bone negative for acute osteomyelitis. The wound cultures of the bone and soft tissue were negative for any organisms. Her pain management is controlling her pain medications. Her left buttock ulcer near the simona-anal area is now healed. She had a reveral of her cholostomy a couple weeks ago. She has been doing a good job of off loading and keep the area clean and dry. Will review her previous vascular studies to decide if further studies need to be ordered. Follow up in one week. Code Visit 111xxx-113xx: 10761 Annalisa subq tissue 20 sq cm/<
[2019-05-03 12:11] VITALS: BP 141/71; PULSE 93; RESP 18; TEMP 37.1; BMI 30.2
--- NOTE | 2019-05-03 17:12 | PCM.WC.PN ---
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 Current Visit: Yes Code(s): T87.89 - Other complications of amputation stump; L97.919 - Non-pressure chronic ulcer of unspecified part of right lower leg with unspecified severity (2) Decubitus ulcer of left buttock Status: Acute Current Visit: Yes Code(s): L89.329 - Pressure ulcer of left buttock, unspecified stage (3) 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 Status: Chronic Current Visit: Yes Code(s): T87.89 - Other complications of amputation stump; M79.604 - Pain in right leg Comment: right BKA (4) Smoker Status: Chronic Current Visit: Yes Code(s): F17.200 - Nicotine dependence, unspecified, uncomplicated Type of Wound Date of Service: 05/03/19 Chief Complaint: Left lower abdomen with non healing sore from a boil that popped a few weeks ago. History of Wound: 48 year old woman presents with pain in her right BKA stump that has worsened over the last several months. She states she underwent the right BKA about 4 years ago. About 6 months postop she needed additional surgery with removal of scar tissue. She is also in the process of getting her prosthesis revised as well. She denies any fever. She denies any recent trauma. She denies any recent infection. She denies any drainage. On 12/28/18 she underwent 1. 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 2. Partial ostectomy tibia for osteomyelitis. 3. Complex secondary wound closure revision reconstruction. She denies any fever or nausea and vomiting today. Wound care is collagen hydrogel. She has new ulcer of left buttock near the perianal area which healed after one week of wound care. She has made sure she has been off loading more and that seems to have helped. Progress of Wound: Right BKA stump ulcer is stable but painful. Left love-rectal ulcer is healed. - Physical Exam Vital Signs Temp Pulse Resp BP 98.7 F 93 18 141/71 H 05/03/19 12:11 05/03/19 12:11 05/03/19 12:11 05/03/19 12:11 General: Alert, Oriented x3, Cooperative HEENT: Atraumatic Oral: Moist Mucosa Lungs: Normal air movement Cardiovascular: Regular Rhythm Extremities: No edema, Capillary Refill Less than 3 Seconds Skin: Ulcer/ Wound - right BKA ulcer that is extremely sensitive with palpation and debridement Wound Measurements and Assessment WC - Nurse 1 - General Ulcer Measurement Start: 04/12/19 13:27 Freq: Status: Active Protocol: Activity Type Activity Date Activity User E-Sign Co-Sign Detail Recorded Client Recorded Date Recorded By Document 05/03/19 12:11 MARLON [id number] 05/03/19 12:16 MARLON 05/03/19 12:11 Wound Center Nurse 1 [Ulcer Assessment] #5 right yusuf -Current Size (cm) - Length 0.2 -Current Size (cm) - Width 0.2 -Current Size (cm) - Depth 0.2 -Total Square Cm 0.04 -Photo Taken No -Exudate Type Purulent -Wound Margin Flat & Intact -Granulation Amt Small (1-33%) -Granulation Quality [place] -Necrosis Amt Small (1-33%) -Necrotic Tissue Type Adherent Slough -Structure Exposed N/A -Texture (Love-wound Skin Appearance) Scarring -Moisture (Love-wound Skin Appearance No Abnormality ) -Color (Love-wound Skin Appearance) No Abnormality -Temperature (Love-wound Skin No Abnormality Appearance) (Pt Warm) -Tenderness on Palpation (Love-wound Yes Skin Appearance) -Ulcer Cleansing Wound Cleanser -Foul Odor after Cleansing No -Anesthetic Used 5% Lidocaine Gel SOL - Nurse 2 - General Ulcer CM Notes Start: 04/12/19 13:27 Freq: Status: Active Protocol: Activity Type Activity Date Activity User E-Sign Co-Sign Detail Recorded Client Recorded Date Recorded By Document 05/03/19 12:59 SHAYNA [id number] 05/03/19 13:00 SHAYNA 05/03/19 12:59 Wound Center Nurse 2 [Procedure/Treatment] -Time 12:59 -Correct Patient Yes -Correct Side, Site, Position Yes -Correct Procedure Yes -Procedure Performed Yes -Type of Procedure Debridement -Clinical Debridement Subcutaneous -Post Debridement Size (cm) - Length 0.4 -Post Debridement Size (cm) - Width 0.2 -Post Debridement Size (cm) - Depth 0.3 -Total Square Cm 0.08 -Wound/Ulcer Outcome Not Healed -Ulcer Cleansing Rinsed/ Irrigated with Saline -Foul Odor after Cleansing No -Bioengineered Tissue No -Bleeding Controlled with Pressure -Offloading No -Treatment Response Procedure Tolerated Well [See Physician Procedure note for Specifics] Pain Scale: 0-10 Numeric [Pain] -Is Patient Pain Free? Yes Musculoskeletal: No Tenderness to Palpation of Joints or Extremities Neurological: Neuro grossly intact Psych/Mental Status: Normal Affect, Appropriate Debridement Note Post-Debridement Measurements/Treatment WC - Nurse 2 - General Ulcer CM Notes Start: 04/12/19 13:27 Freq: Status: Active Protocol: Activity Type Activity Date Activity User E-Sign Co-Sign Detail Recorded Client Recorded Date Recorded By Document 04/12/19 13:52 [id number] 04/12/19 13:58 Document 04/26/19 11:05 [id number] 04/26/19 11:11 Document 05/03/19 12:59 [id number] 05/03/19 13:00 04/12/19 04/26/19 05/03/19 13:52 11:05 12:59 Wound Center Nurse 2 #6 left love-rectal wound -Time 13:57 -Correct Patient Yes No -Correct Side, Site, Position Yes No -Correct Procedure Yes No -Procedure Performed Yes No -Type of Procedure Debridement -Clinical Debridement Subcutaneous -Post Debridement Size (cm) - Length 1.2 0 -Post Debridement Size (cm) - Width 0.5 0 -Post Debridement Size (cm) - Depth 0.2 0 -Total Square Cm 0.60 0 -Wound/Ulcer Outcome Not Healed Healed- Epithelialized -Ulcer Cleansing Rinsed/ Irrigated with Saline -Foul Odor after Cleansing No -Bioengineered Tissue No -Bleeding Controlled with Pressure -Offloading No -Treatment Response Procedure Tolerated Well #5 right yusuf -Time 13:52 11:10 12:59 -Correct Patient Yes Yes Yes -Correct Side, Site, Position Yes Yes Yes -Correct Procedure Yes Yes Yes -Procedure Performed Yes Yes Yes -Type of Procedure Debridement Debridement Debridement -Clinical Debridement Subcutaneous Subcutaneous Subcutaneous -Post Debridement Size (cm) - Length 0.7 0.5 0.4 -Post Debridement Size (cm) - Width 0.2 0.2 0.2 -Post Debridement Size (cm) - Depth 0.2 0.5 0.3 -Total Square Cm 0.14 0.10 0.08 -Wound/Ulcer Outcome Not Healed Not Healed Not Healed -Ulcer Cleansing Rinsed/ Rinsed/ Rinsed/ Irrigated with Irrigated with Irrigated with Saline Saline Saline -Foul Odor after Cleansing No No No -Bioengineered Tissue No No No -Bleeding Controlled with Pressure Pressure Pressure -Offloading Yes Yes No -Type of Offloading Knee Walker Knee Walker -Treatment Response Procedure Procedure Procedure Tolerated Well Tolerated Well Tolerated Well Pain Scale: 0-10 Numeric Is Patient Pain Free? 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 Open wound of right leg with complication. 2. Pressure ulcer left buttock near perianal area. 3. Infection of amputation stump of right lower extremity. 4. Pain of amuputation stump of right lower extremity. 5. Diabetes mellitus, type 2. 6. Tobacco Abuse disorder Plan: Patient was seen and examined in the wound center today. She recently complained of pain in her right BKA stump that had worsened over the last several months. She states she underwent the right BKA about 4 years ago. About 6 months postop she needed additional surgery with removal of scar tissue. She is also in the process of getting her prosthesis revised as well. On 12/28/18 she had a surgical preparation right BKA stump with incision and drainage and excisional debridement chronic infected seroma anterior aspect of stump and partial ostectomy tibia for osteomyelitis and complex secondary wound closure revision reconstruction. She was sent home with a wound VAC to the right anterior open area. The wound VAC was stopped due to difficulty packing the wound. She has been doing daily collagen hydrogel with adaptic over right BKA stump ulcer. Pathology from 12/28/18 right tibia bone negative for acute osteomyelitis. The wound cultures of the bone and soft tissue were negative for any organisms. Her pain management is controlling her pain medications. Her left buttock ulcer near the love-anal area is now healed. She had a reversal of her cholostomy several weeks ago. She has been doing a good job of off loading and keep the area clean and dry. Will obtain a wound culture of the Right BKA due to the amount of pain she is having. If the culture is positive, it would necessitate treatment with an antibiotic. She will continue collagen hydrogel covered by adaptic for wound care and an JOSE D wrap for compression. Follow up in two weeks because of the holiday next week. Code Visit [id number]: [id number] Annalisa subq tissue 20 sq cm/<
--- NOTE | 2019-05-05 11:02 | ART_ITS ---
Reason For Study: Rt BK Amputation Ulcer Procedure A right unilateral continuous wave Doppler with analog waveform analysis,segmental pressures,and ankle brachial indexes. Left Segmental Pressures Left brachial= 110mmHg. Right Segmental Pressures Right brachial= 111mmHg. Right thigh = 150mmHg. Indices Rt Low Thigh Index: 1.35. Interpretation Summary The patient has a right below-knee amputation. Triphasic Doppler waveform was noted at popliteal level on the right. The right low-thigh/brachial index is 1.35. Although a limited, unilateral study, there is no evidence of significant arterial occlusive disease in the right lower extremity. Ordering Physician: Grzegorz Guadarrama Referring Physician: Sasha Rodriguez Performed By: Clair Dee RDCS/RVT
== END 2019-05-08 23:59 ==
LOC: CVS 10:00
PROVIDERS: Family Provider Internal Medicine; PCP Internal Medicine; Visit Provider Surgery
DX: T87.89 Other complications of amputation stump (principal); Y83.8 Other surgical procedures as the cause of abnormal reaction of the patient, or of later complication, without mention of misadventure at the time of the procedure; F17.200 Nicotine dependence, unspecified, uncomplicated; I73.9 Peripheral vascular disease, unspecified; R52 Pain, unspecified; L89.322 Pressure ulcer of left buttock, stage 2
CPT/HCPCS: 11042; 87070; 87075; 87077; 87186; 87205; 93923

== ENCOUNTER 2019-05-31 09:45 | Outpatient (RCR) | payer MEDICARE, MEDICAID, SELFPAY ==
[2019-05-03 12:11] VITALS: BMI 30.2
[2019-05-09 00:42] VITALS: BP 141/71; PULSE 93; RESP 18; TEMP 37.1
[2019-05-17 13:13] VITALS: BP 126/70; PULSE 97; RESP 18; TEMP 36.5; BMI 30.2
--- NOTE | 2019-05-17 22:42 | PCM.WC.PN ---
Type of Wound Date of Service: 05/17/19 Chief Complaint: Nonhealing ulcer anterior aspect right BKA stump. History of Wound: Surgery 12/28/18 - 1. 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 2. Partial ostectomy tibia for osteomyelitis. 3. Complex secondary wound closure revision reconstruction. Wound care - Collagen hydrogel. Operative culture - negative. She was discharged on Bactrim DS and Flagyl. Recent wound culture from 05/03/19 showed Staphylococcus aureus. She was placed on Doxycycline. Pathology - negative for osteomyelitis. Prealbumin from 12/29/18 was 15.0. Encourage nutritional supplementation with protein to help the healing process. MRI from 12/01/18 showed small rim-enhancing abscess at the anterior lateral subcutaneous tissues. Below-knee amputation without acute osteomyelitis. Mild medial and lateral compartment cartilage loss. Tiny popliteal cyst. Muscle atrophy. Today she denies fever. Her appetite is ok. Progress of Wound: Improved. - Physical Exam Vital Signs Temp Pulse Resp BP 97.7 F L 97 18 126/70 H 05/17/19 13:13 05/17/19 13:13 05/17/19 13:13 05/17/19 13:13 Wound Measurements and Assessment WC - Nurse 1 - General Ulcer Measurement Start: 05/17/19 13:13 Freq: Status: Active Protocol: Activity Type Activity Date Activity User E-Sign Co-Sign Detail Recorded Client Recorded Date Recorded By Document 05/17/19 13:13 DL [id number] 05/17/19 13:18 DL 05/17/19 13:13 Wound Center Nurse 1 [Ulcer Assessment] #5 right yusuf -Current Size (cm) - Length 0.1 -Current Size (cm) - Width 0.1 -Current Size (cm) - Depth 0.1 -Total Square Cm 0.01 -Photo Taken No -Exudate Amt None Present -Wound Margin Flat & Intact -Granulation Amt Large (67-100%) -Granulation Quality [place] -Necrosis Amt None Present (0 %) -Structure Exposed N/A -Texture (Love-wound Skin Appearance) Scarring -Moisture (Love-wound Skin Appearance No Abnormality ) -Color (Love-wound Skin Appearance) Hemosiderin Staining,Rubor -Temperature (Love-wound Skin No Abnormality Appearance) (Pt Warm) -Tenderness on Palpation (Love-wound No Skin Appearance) -Ulcer Cleansing Rinsed/ Irrigated with Saline -Foul Odor after Cleansing No -Anesthetic Used 5% Lidocaine Gel - Nurse 2 - General Ulcer CM Notes Start: 05/17/19 13:13 Freq: Status: Active Protocol: Activity Type Activity Date Activity User E-Sign Co-Sign Detail Recorded Client Recorded Date Recorded By Document 05/17/19 13:26 [id number] [id number] 05/17/19 13:31 05/17/19 13:26 Wound Center Nurse 2 [Procedure/Treatment] -Time 13:31 -Correct Patient Yes -Correct Side, Site, Position Yes -Correct Procedure Yes -Procedure Performed Yes -Type of Procedure Debridement -Clinical Debridement Subcutaneous -Post Debridement Size (cm) - Length 0.2 -Post Debridement Size (cm) - Width 0.2 -Post Debridement Size (cm) - Depth 0.7 -Total Square Cm 0.04 -Wound/Ulcer Outcome Not Healed -Ulcer Cleansing Rinsed/ Irrigated with Saline -Foul Odor after Cleansing No -Bioengineered Tissue No -Bleeding Controlled with Pressure -Offloading Yes -Type of Offloading Knee Walker -Treatment Response Procedure Tolerated Well [See Physician Procedure note for Specifics] Pain Scale: 0-10 Numeric [Pain] -Is Patient Pain Free? Yes Debridement Note Post-Debridement Measurements/Treatment - Nurse 2 - General Ulcer CM Notes Start: 05/17/19 13:13 Freq: Status: Active Protocol: Activity Type Activity Date Activity User E-Sign Co-Sign Detail Recorded Client Recorded Date Recorded By Document 05/17/19 13:26 [id number] 05/17/19 13:31 05/17/19 13:26 Wound Center Nurse 2 #5 right yusuf -Time 13:31 -Correct Patient Yes -Correct Side, Site, Position Yes -Correct Procedure Yes -Procedure Performed Yes -Type of Procedure Debridement -Clinical Debridement Subcutaneous -Post Debridement Size (cm) - Length 0.2 -Post Debridement Size (cm) - Width 0.2 -Post Debridement Size (cm) - Depth 0.7 -Total Square Cm 0.04 -Wound/Ulcer Outcome Not Healed -Ulcer Cleansing Rinsed/ Irrigated with Saline -Foul Odor after Cleansing No -Bioengineered Tissue No -Bleeding Controlled with Pressure -Offloading Yes -Type of Offloading Knee Walker -Treatment Response Procedure Tolerated Well Pain Scale: 0-10 Numeric Is Patient Pain Free? Yes Wound debrided: #5 Anterior aspect right BKA stump. Laterality: Right Wound Grade/Stage: 4. Type of Debridement: Excisional debridement Anesthesia Used: 4% Lidocaine Solution Depth: Down to and including healthy tissue, in the subcutaneous layer Percentage of wound debrided: 100 Instrument Used: 3mm curette Tissue Removed: subcutaneous tissue. Severity: Fat Layer Exposed Amount of bleeding with debridement: Mild Bleeding Controlled with: Pressure Patient tolerated procedure well Assessment/Plan Assessment: 1. Painful right BKA stump. 2. 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 3. 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 4. Diabetes mellitus. 5. PVD. 6. Smoker. 7. History of necrotizing infection. 8. History of diverting colostomy. 9. 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 Plan: Continue Collagen Hydrogel daily to the nonhealing ulcer anterior aspect right BKA stump. She is done with her antibiotics, Bactrim DS and Flagyl from her surgery in December. Her operative culture was negative. Repeat wound culture from 05/03/19 showed Staphylococcus aureus. Continue Doxycycline. The Pathology was negative for osteomyelitis. Her Prealbumin from 12/29/18 was 15.0. Encourage nutritional supplementation with protein to help the healing process. Discussed further operative debridement and complex secondary wound closure. She was in agreement. Will schedule for next month. Surgery will be done on an outpatient basis under general anesthesia. Patient was informed of the risks and complications of the procedure including alternatives to surgery. These were discussed with her personally. She voices understanding and wishes to proceed. Follow 2 weeks.
[2019-05-31 10:02] VITALS: BP 117/74; PULSE 95; RESP 18; TEMP 35.5; BMI 30.2
--- NOTE | 2019-05-31 23:06 | PCM.WC.PN ---
Type of Wound Date of Service: 05/31/19 Chief Complaint: Nonhealing ulcer anterior aspect right BKA stump. History of Wound: Surgery 12/28/18 - 1. 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 2. Partial ostectomy tibia for osteomyelitis. 3. Complex secondary wound closure revision reconstruction. Wound care - Collagen hydrogel. Operative culture - negative. She was discharged on Bactrim DS and Flagyl. Recent wound culture from 05/03/19 showed Staphylococcus aureus. She was placed on Doxycycline. Pathology - negative for osteomyelitis. Prealbumin from 12/29/18 was 15.0. Encourage nutritional supplementation with protein to help the healing process. MRI from 12/01/18 showed small rim-enhancing abscess at the anterior lateral subcutaneous tissues. Below-knee amputation without acute osteomyelitis. Mild medial and lateral compartment cartilage loss. Tiny popliteal cyst. Muscle atrophy. Today she denies fever. Her appetite is ok. Wound care has been difficult because of the small opening. Will schedule surgery for debridement and secondary wound closure. Will also biopsy the bone as well. Progress of Wound: Improved. - Physical Exam Vital Signs Temp Pulse Resp BP 96 F L 95 18 117/74 05/31/19 10:02 05/31/19 10:02 05/31/19 10:02 05/31/19 10:02 Wound Measurements and Assessment WC - Nurse 1 - General Ulcer Measurement Start: 05/17/19 13:13 Freq: Status: Active Protocol: Activity Type Activity Date Activity User E-Sign Co-Sign Detail Recorded Client Recorded Date Recorded By Document 05/31/19 10:02 [id number] 05/31/19 10:08 05/31/19 10:02 Wound Center Nurse 1 [Ulcer Assessment] #5 right yusuf -Combined with other wound No -Current Size (cm) - Length 0.1 -Current Size (cm) - Width 0.1 -Current Size (cm) - Depth 0.1 -Total Square Cm 0.01 -Photo Taken No -Epithelialization None Present -Undermining/Tunneling No -Circular Undermining No -Classification - Thickness Unclassifiable (Eschar Covered ) -Exudate Amt Small -Exudate Type Purulent -Wound Margin Indistinct, Non -Visible -Granulation Amt None Present (0 %) -Granulation Quality N/A -Slough/Fibrin Yes -Necrosis Amt Small (1-33%) -Necrotic Tissue Type Adherent Slough -Structure Exposed None/Limited to Skin Breakdown -Texture (Love-wound Skin Appearance) No Abnormality, Assessed -Moisture (Love-wound Skin Appearance No Abnormality, ) Assessed -Color (Love-wound Skin Appearance) No Abnormality, Assessed -Temperature (Love-wound Skin No Abnormality Appearance) (Pt Warm) -Tenderness on Palpation (Love-wound No Skin Appearance) -Ulcer Cleansing SOAP& WATER -Foul Odor after Cleansing No -Anesthetic Used 5% Lidocaine Gel [Edema Assessment] -Lower Limb Edema Present NA - Nurse 2 - General Ulcer CM Notes Start: 05/17/19 13:13 Freq: Status: Active Protocol: Activity Type Activity Date Activity User E-Sign Co-Sign Detail Recorded Client Recorded Date Recorded By Document 05/31/19 10:37 [id number] 05/31/19 10:40 05/31/19 10:37 Wound Center Nurse 2 [Procedure/Treatment] #5 right yusuf -Time 10:38 -Correct Patient Yes -Correct Side, Site, Position Yes -Correct Procedure Yes -Procedure Performed Yes -Type of Procedure Debridement -Clinical Debridement Subcutaneous -Post Debridement Size (cm) - Length 0.7 -Post Debridement Size (cm) - Width 0.2 -Post Debridement Size (cm) - Depth 0.3 -Total Square Cm 0.14 -Wound/Ulcer Outcome Not Healed -Ulcer Cleansing Rinsed/ Irrigated with Saline -Foul Odor after Cleansing No -Bioengineered Tissue No -Bleeding Controlled with Pressure -Offloading No -Treatment Response Procedure Tolerated Well [See Physician Procedure note for Specifics] Debridement Note Post-Debridement Measurements/Treatment - Nurse 2 - General Ulcer CM Notes Start: 05/17/19 13:13 Freq: Status: Active Protocol: Activity Type Activity Date Activity User E-Sign Co-Sign Detail Recorded Client Recorded Date Recorded By Document 05/17/19 13:26 [id number] 05/17/19 13:31 Document 05/31/19 10:37 [id number] 05/31/19 10:40 05/17/19 05/31/19 13:26 10:37 Wound Center Nurse 2 #5 right yusuf -Time 13:31 10:38 -Correct Patient Yes Yes -Correct Side, Site, Position Yes Yes -Correct Procedure Yes Yes -Procedure Performed Yes Yes -Type of Procedure Debridement Debridement -Clinical Debridement Subcutaneous Subcutaneous -Post Debridement Size (cm) - Length 0.2 0.7 -Post Debridement Size (cm) - Width 0.2 0.2 -Post Debridement Size (cm) - Depth 0.7 0.3 -Total Square Cm 0.04 0.14 -Wound/Ulcer Outcome Not Healed Not Healed -Ulcer Cleansing Rinsed/ Rinsed/ Irrigated with Irrigated with Saline Saline -Foul Odor after Cleansing No No -Bioengineered Tissue No No -Bleeding Controlled with Pressure Pressure -Offloading Yes No -Type of Offloading Knee Walker -Treatment Response Procedure Procedure Tolerated Well Tolerated Well Pain Scale: 0-10 Numeric Is Patient Pain Free? Yes Wound debrided: #5 Anterior aspect right BKA stump. Laterality: Right Wound Grade/Stage: 4. Type of Debridement: Excisional debridement Anesthesia Used: 4% Lidocaine Solution Depth: Down to and including healthy tissue, in the subcutaneous layer Percentage of wound debrided: 100 Instrument Used: 3mm curette Tissue Removed: subcutaneous tissue. Severity: Fat Layer Exposed Amount of bleeding with debridement: Mild Bleeding Controlled with: Pressure Patient tolerated procedure well Assessment/Plan Assessment: 1. Painful right BKA stump. 2. 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 3. 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 4. Diabetes mellitus. 5. PVD. 6. Smoker. 7. History of necrotizing infection. 8. History of diverting colostomy. 9. 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 Plan: Continue Collagen Hydrogel daily to the nonhealing ulcer anterior aspect right BKA stump. She is done with her antibiotics, Bactrim DS and Flagyl from her surgery in December. Her operative culture was negative. Repeat wound culture from 05/03/19 showed Staphylococcus aureus. Continue Doxycycline. The Pathology was negative for osteomyelitis. Her Prealbumin from 12/29/18 was 15.0. Encourage nutritional supplementation with protein to help the healing process. Discussed further operative debridement and complex secondary wound closure. She was in agreement. Will schedule for next month. Surgery will be done on an outpatient basis under general anesthesia. Patient was informed of the risks and complications of the procedure including alternatives to surgery. These were discussed with her personally. She voices understanding and wishes to proceed. Encouraged the patient to stop smoking as it may have deleterious effects on wound healing. Follow 3 weeks.
== END 2019-06-07 23:59 ==
LOC: WC 09:45
PROVIDERS: Family Provider Internal Medicine; PCP Internal Medicine; Visit Provider Surgery
DX: T87.89 Other complications of amputation stump (principal); Y83.8 Other surgical procedures as the cause of abnormal reaction of the patient, or of later complication, without mention of misadventure at the time of the procedure; F17.200 Nicotine dependence, unspecified, uncomplicated; R52 Pain, unspecified; E11.51 Type 2 diabetes mellitus with diabetic peripheral angiopathy without gangrene
CPT/HCPCS: 11042

== ENCOUNTER → 2019-06-07 13:19 | Outpatient (CLI) | payer MEDICARE, MEDICAID, SELFPAY ==
[2019-06-03 14:59] VITALS: BMI 30.2
[2019-06-07 15:03] LABS: Hemoglobin A1c 8.7 % (4.2-6.3)
== END ==
PROVIDERS: Family Provider Internal Medicine; PCP Internal Medicine; Referring Provider Anesthesiology; Visit Provider Anesthesiology
DX: Z01.812 Encounter for preprocedural laboratory examination (principal)
CPT/HCPCS: 36415; 83036

== ENCOUNTER 2019-06-11 10:23 | Day surgery (SDC) | payer MEDICARE, MEDICAID, SELFPAY ==
[2019-06-03 14:59] VITALS: BMI 30.2
--- NOTE | 2019-06-10 18:50 | PCM.HP.BLA ---
History and Physical Date of Admission: 06/11/19 HISTORY OF PRESENT ILLNESS 48 year old woman presents with a nonhealing ulcer anterior aspect right BKA stump. She had surgery on 12/28/18 where she underwent surgical preparation right BKA stump with incision and drainage and excisional debridement chronic infected seroma anterior aspect of stump and partial ostectomy tibia for osteomyelitis and complex secondary wound closure revision reconstruction. Recent wound culture from 05/03/19 showed Staphylococcus aureus. She was placed on Doxycycline. Pathology from surgery 12/28/18 was negative for osteomyelitis. Prealbumin from 12/29/18 was 15.0. Encourage nutritional supplementation with protein to help the healing process. The ulcer extends down to the bone. She has persistent pain. Further operative debridement with secondary wound closure of the amputation stump is recommended. Today she denies fever. Her appetite is ok. PAST MEDICAL HISTORY Anxiety Diabetes Neuropathy Raynaud disease Vascular disease PAST SURGICAL HISTORY Amputation of right lower extremity cholecystectomy colostomy surgical preparation right BKA stump with incision and drainage and excisional debridement chronic infected seroma anterior aspect of stump and partial ostectomy tibia for osteomyelitis and complex secondary wound closure revision reconstruction - 12/28/18 ALLERGIES fentanyl morphine MEDICATIONS Aspirin [Aspirin, Baby] Atorvastatin Calcium [Lipitor] Baclofen Ranitidine [Zantac] Clopidogrel Bisulfate [Plavix] Duloxetine Hcl [Cymbalta] pantoprazole insulin aspart U- 100 ibuprofen pregabalin clonidine HCl hydrocodone loratadine dulaglutide buspirone insulin detemir (U-100) FAMILY HISTORY Father - Cancer Mother - Hypertension, Fibromyalgia, Thyroid disorder Brother - Diabetes Grandmother - Myocardial infarction Grandfather - Cancer SOCIAL HISTORY Smoking Status: Current every day smoker how long ago did patient quit smokin alcohol intake: never substance use type: does not use REVIEW OF SYSTEMS General - Denies fever, fatigue, and weight loss. Eyes - Denies glaucoma. Has cataracts. ENT - Denies nasal congestion and sore throat. Endocrine - Denies excessive thirst and urination. Has heat and cold intolerance. Has diabetes mellitus. Skin - Denies suspicious lesions and skin cancer. Musculoskeletal - Denies joint pain, joint stiffness, weakness of muscles and joints and arthritis. Has back pain. Has a painful right BKA stump. Neuro - Denies headaches. Cardiovascular - Denies chest pain, fatigue, and shortness of breath with exertion. Psych - Denies anxiety. Has depression. Respiratory - Denies chronic cough and shortness of breath. Patient is a smoker. Gastrointestinal - Denies nausea, vomiting, diarrhea, and constipation. Hematologic - Denies abnormal bruising and bleeding. Genitourinary - Denies hematuria and urinary frequency. PHYSICAL EXAMINATION General - Alert and Oriented HEENT - PERRL. EOMI. Throat is clear. Neck - Supple and nontender. No cervical adenopathy. Lungs - Clear to auscultation. Heart - Regular rate and rhythm. Abdomen - Soft and nondistended. Functioning colostomy. Extremities - FROM upper extremities and left lower extremity. Has a right BKA stump. Has a nonhealing ulcer in the anterior aspect right BKA stump. Extends down to the bone. Measures 0.3 x 0.2 x 0.7 cm. Distance from the tibial tubercle to the stump is 12 cm. No cellulitis, fluctuance, or purulent drainage. No inguinal adenopathy. Femoral pulses are palpable. No axillary adenopathy. Radial pulses are palpable. Neuro - CN II-XII grossly intact. Psych - Normal mood and affect. ASSESSMENT 1. 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 2. Diabetes mellitus. 3. PVD. 4. Smoker. 5. History of necrotizing infection. 6. History of diverting colostomy. PLAN Continue Collagen Hydrogel daily to the nonhealing ulcer anterior aspect right BKA stump. Repeat wound culture from 05/03/19 showed Staphylococcus aureus. Continue Doxycycline. The Pathology from surgery in 12/25 was negative for osteomyelitis. Her Prealbumin from 12/29/18 was 15.0. Encourage nutritional supplementation with protein to help the healing process. Discussed further operative debridement and complex secondary wound closure. She was in agreement. Surgery will be done on an outpatient basis under general anesthesia. Patient was informed of the risks and complications of the procedure including alternatives to surgery. These were discussed with her personally. She voices understanding and wishes to proceed.
[2019-06-11] VITALS (11 sets, daily range): BP systolic 100–112; BP diastolic 17–80; PULSE 71–76; RESP 16–75; TEMP 36.1–36.8; O2SAT 94–100; BMI 28.8
[2019-06-11] MEDS: Lactated Ringers 1,000 ML 100 ML IV (11:13)
[2019-06-11 11:16] LABS: Bedside Glucose 217 mg/dL (70-110)
--- NOTE | 2019-06-11 11:55 | UL_PTH ---
PATIENT: BERTRAM GARY LOC: [facility] [place] U#:[id number] AGE/SX: 48/F ROOM: RE06/11/[address]: Dr. Grzegorz Guadarrama MD : 1970 BED: DIS: 06/11/2019 SPEC #: [id number] RECD: 06/11/19 16:04 STATUS: ZENA SAMANTA #: [id number] LANIE: 06/11/19 11:[address]: Grzegorz Guadarrama DEPT: SURGICAL PATHOLOGY RECD BY: Bill Espinoza ENTERED: 06/14/19 09:52 SP TYPE: ULCER OTHR DR: Dr. Sasha Rodriguez MD Tissues: A - ULCER B - Bone of foot, NOS Procedures: Decalcification bone/plaque Surgery Specimen Level III HEADER OPERATION: Surgical prep BKA stump with excisional debridement, non healing ulcer PRE-OP DIAGNOSIS: Non healing painful ulcer anterior aspect right BKA TISSUE SUBMITTED: A. Ulcer anterior aspect right BKA stump, soft tissue, B. Ulcer anterior aspect right BKA stump, bone MICROSCOPIC DIAGNOSIS A. Ulcer anterior aspect right below knee amputation stump, soft tissue: Pieces of skin and fibroadipose tissue with acanthosis, hyperkeratosis, chronic inflammation, fibrosis and reactive changes. B. Ulcer anterior aspect right below knee amputation stump, bone: Pieces of bone with reactive changes and consistent with acute osteomyelitis. See comment. SJ:nain 06/17/19 COMMENT B. Neutrophils are noted mixed with fibrinous material in the center of bony trabeculae. Case has been reviewed in consultation with Dr. Gonzales who concurs with the above diagnosis. IDC:AM MICROSCOPIC DESCRIPTION Slides are reviewed. GROSS DESCRIPTION A - Received in fixative is one container labeled with the patient's name and designated ulcer anterior aspect right below knee amputation stump, soft tissue. The specimen consists of three variable sized pieces of jarrell-white skin and soft tissue measuring in aggregate 2.2 x 1 x 0.3 cm. The entire specimen is submitted in one cassette. B - Received in fixative is one container labeled with the patient's name and designated ulcer anterior aspect right below knee amputation stump, bone. The specimen consists of two pieces of bone measuring in aggregate 0.5 x 0.5 x 0.3 cm. The entire specimen is submitted in one cassette after decalcification. / SJ:rg 06/14/19 TC:5 CPT: 50574 x2, 74089
[2019-06-11] MEDS: Mupirocin Ointment 22gm Tube 1 APPLIC (13:19)
--- NOTE | 2019-06-11 13:25 | PCM.OPRPT ---
Report of Operation Date of Procedure: 06/11/19 Pre-Operative Diagnosis: 1. 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 2. Diabetes mellitus. 3. PVD. 4. Smoker. 5. History of necrotizing infection. Post-Operative Diagnosis: 1. 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 2. Diabetes mellitus. 3. PVD. 4. Smoker. 5. History of necrotizing infection. 6. Clinical osteomyelitis. Surgery/Procedure Performed:: 1. Surgical preparation anterior aspect right BKA stump with excisional debridement nonhealing painful ulcer. 2. Partial ostectomy tibia for osteomyelitis. 3. 3 cm complex secondary wound closure. Description of Surgical Findings:: 48 year old woman presents with a nonhealing ulcer anterior aspect right BKA stump. She had surgery on 12/28/18 where she underwent surgical preparation right BKA stump with incision and drainage and excisional debridement chronic infected seroma anterior aspect of stump and partial ostectomy tibia for osteomyelitis and complex secondary wound closure revision reconstruction. Recent wound culture from 05/03/19 showed Staphylococcus aureus. She was placed on Doxycycline. Pathology from surgery 12/28/18 was negative for osteomyelitis. Prealbumin from 12/29/18 was 15.0. Encourage nutritional supplementation with protein to help the healing process. The ulcer extends down to the bone. She has persistent pain. Further operative debridement with secondary wound closure of the amputation stump is recommended. Today she denies fever. Her appetite is ok. Patient was informed of the risks and complications of the procedure including alternatives to surgery. These were discussed with the patient personally. Patient voices understanding and wishes to proceed. 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 Nonhealing painful ulcer anterior aspect right BKA stump soft tissue to Pathology and Microbiology. 2. Nonhealing painful ulcer anterior aspect right BKA stump tibial bone to Pathology and Microbiology. Drains: None. Estimated Blood Loss (mL): 10 ml. Description of Procedure: Patient was taken to OR in supine position and was placed under general anesthesia. The right BKA stump was prepped and draped in the usual fashion. SCD was placed for DVT prophylaxis on the left leg. Perioperative antibiotics were given intravenously. Using xylocaine with epinephrine, the ulcer on the anterior aspect right BKA stump was infiltrated. After waiting 5 minutes for the anesthetic to take effect, I proceeded with surgical preparation of the ulcer with excisional debridement down through scar tissue and fascia until bone was seen. The bone in the depth of the ulcer was irregularly shaped which is suspicious for osteomyelitis. A partial ostectomy of the tibia was done using rongeurs to evaluate for osteomyelitis. A rasp was used to smooth out the bony edges. The wound was irrigated with saline. Hemostasis was obtained with electrocautery. The ulcer was closed in a complex secondary would closure fashion by first freeing up the deep fascial edges. I made back cuts on both sides to free up the fascial edges and allowed advancement of the fascial edges to cover the exposed bone. The fascial closure was obtained with 3-0 Monocryl figure of eight interrupted sutures. The deep dermis and subcutaneous tissue was approximated with 3-0 Monocryl interrupted sutures. The skin was approximated with 3-0 Nylon simple interrupted and vertical mattress interrupted sutures. The ulcer was not as extensive as I had anticipated so I felt a drain was not necessary. A compression dressing should be adequate enough to minimize seroma formation postoperatively and minimize healing problems. The length of the complex closure repair was 3 cm. Antibiotic ointment was applied to the suture line followed by Kerlix gauze and a compression JOSE D wrap. Medipore tape was applied to help keep the compression dressing in place. Patient tolerated the procedure well and was sent to PACU in satisfactory condition. Patient will be sent home on antibiotics and pain medication. She will keep her right BKA stump elevated during the initial postoperative period. Patient will followup in a week at the [facility] for a wound check and for discussion of the pathology report and for discussion of the microbiology report. A positive culture will necessitate antibiotic therapy. I will remove the sutures in 2-3 weeks. Grafts/Implants Used: None. - Complications None. - Admit VTE Documentation VTE Present on Admission: No VTE Mechan Device Prophylaxis: SCD's VTE Pharm Prophylaxis ordered?: No Code Visit Surgery Charges CPT - 83437 ICD-10 - T87.89, T87.43, Z87.39, E11.9, I73.9, M86.9, F17.200 43091 T87.89, T87.43, M86.9, Z87.39, E11.9, I73.9, F17.200 22768 T87.89, T87.43, M86.9, Z87.39, E11.9, I73.9, F17.200
--- NOTE | 2019-06-11 13:38 | DCINST_ITS ---
You will use the following diet at home:: Calorie/Carbohydrate Controlled (specify 1200, 1400, etc) Discharge Activity: May Shower - place plastic bag over right BKA stump dressing when showering. May shower in (days): 1 - place plastic bag over right BKA stump when showering. May resume sexual activity in: No Restrictions Weight Bearing Status: Weight bearing as tolerated - left foot. Keep extremity elevated above heart level: Right Leg - BKA stump. Call your doctor if your incision/area has: Continuous Slow Oozing, Sudden Increased Bleeding, Increased Pain/ Swelling, Increased Redness, Foul Smelling Discharge, Swelling at the incision site Call your doctor if you observe: Fever of 101 or Higher, Coldness, Increased Pain, Shortness of breath, Chest pain, Calf discomfort, Uncontrolled pain Change Dressing in (Days):: 10 - will change dressing at wound center. Cleanse incision/area with: - - wear plastic bag over right BKA stump dressing when showering. Additional Instructions: May resume Plavix tomorrow 06/12/19. May resume daily Aspirin in two days 06/13/19. Allergies/Adverse Reactions: Allergies fentanyl Allergy (Verified 06/11/19 10:50) Other CONFUSION morphine Adverse Reaction (Verified 06/11/19 10:50) Upset Stomach CONFUSION Medications to take at Discharge Baclofen 10 mg PO BID 04/26/16 ranitidine 150 mg tablet 150 mg PO BID #180 tab 02/23/19 duloxetine 30 mg capsule,delayed release 60 mg PO BID #60 cap 03/15/19 Atorvastatin Calcium 40 mg PO DAILY 03/16/19 Dulaglutide [Trulicity] 1.5 mg SUBCUT QWEEK 03/16/19 Insulin Lispro [Humalog KwikPen] 12 unit SUBCUT TIDAC 03/16/19 Loratadine 10 mg PO DAILY 03/16/19 pantoprazole 40 mg tablet,delayed release 40 mg PO QDAY #90 tab 04/02/19 pregabalin 150 mg capsule 150 mg PO TID cap 06/03/19 Clonidine HCl [Catapres] 0.1 mg PO DAILY 06/04/19 Insulin Detemir [Levemir FlexPen] 54 units SUBCUT QHS 06/04/19 Aspirin [Low Dose Aspirin EC] 81 mg PO DAILY #90 tab 06/11/19 Clopidogrel Bisulfate [Clopidogrel] 75 mg PO DAILY #90 tab 06/11/19 Diazepam [Valium] 5 mg PO TID PRN PRN #20 tab 06/11/19 Doxycycline [Vibramycin] 100 mg PO BID #28 cap 06/11/19 Oxycodone HCl/Acetaminophen [Oxycodone-Acetaminophen 5-325] 1 tab PO .[id number] PRN PRN 7 Days #40 tab 06/11/19 The following prescriptions were given: Oxycodone HCl/Acetaminophen [Oxycodone-Acetaminophen 5-325] 1 tab PO .[id number] PRN PRN 7 Days #40 tab PRN Reason: pain Prescription Printed Diazepam [Valium] 5 mg PO TID PRN PRN #20 tab PRN Reason: Spasms Prescription Printed Doxycycline [Vibramycin] 100 mg PO BID #28 cap Prescription Printed Primary Care Physician: Sasha Rodriguez MD [Primary Care Provider] - Test Results: Test results from this visit will be discussed in further detail at your follow- up appointment, if applicable. Please Follow Up With: Grzegorz Guadarrama MD When: friday06/21/19 at wound center. call [phone] for appt. Proposed Discharge Date: 06/11/19
[2019-06-11 13:50] LABS: Bedside Glucose 208 mg/dL (70-110)
== END 2019-06-11 15:05 | disposition home or self-care (01) ==
LOC: SDC 10:24 → AC 10:24
PROVIDERS: Family Provider Internal Medicine; PCP Internal Medicine; Referring Provider Surgery; Visit Provider Surgery
PROC: (CPT 13160; principal; 2019-06-11 11:40)
DX: T87.89 Other complications of amputation stump (principal); T87.43 Infection of amputation stump, right lower extremity; Z87.39 Personal history of other diseases of the musculoskeletal system and connective tissue; M86.9 Osteomyelitis, unspecified; F17.200 Nicotine dependence, unspecified, uncomplicated; E11.40 Type 2 diabetes mellitus with diabetic neuropathy, unspecified; F41.9 Anxiety disorder, unspecified; I73.00 Raynaud's syndrome without gangrene; R01.1 Cardiac murmur, unspecified; I25.2 Old myocardial infarction; G25.81 Restless legs syndrome; K21.9 Gastro-esophageal reflux disease without esophagitis; E78.00 Pure hypercholesterolemia, unspecified; F32.9 Major depressive disorder, single episode, unspecified; Z86.718 Personal history of other venous thrombosis and embolism; Z86.73 Personal history of transient ischemic attack (TIA), and cerebral infarction without residual deficits; Z78.0 Asymptomatic menopausal state; Z93.3 Colostomy status; Z79.4 Long term (current) use of insulin; Z79.82 Long term (current) use of aspirin; Z79.899 Other long term (current) drug therapy
CPT/HCPCS: 00400; 13160; 15002; 27640; 82962; 87070; 87075; 87077; 87102; 87176; 87186; 87205; 87206; 88304; 88311; J7120; J2405

== ENCOUNTER 2019-06-15 02:42 | Emergency (ER) | payer MEDICARE, MEDICAID, SELFPAY ==
[2019-06-11 10:52] VITALS: BMI 28.8
[2019-06-15 02:43] VITALS: BP 109/69; PULSE 76; RESP 16; TEMP 36.4; O2SAT 96; BMI 33.3
[2019-06-15 02:57] VITALS: BP 109/69; PULSE 76; RESP 16; TEMP 36.4; O2SAT 96
--- NOTE | 2019-06-15 03:03 | EKG12_ITS ---
Test Reason : CP Blood Pressure : / mmHG Vent. Rate : 079 BPM Atrial Rate : 079 BPM P-R Int : 182 ms QRS Dur : 088 ms QT Int : 402 ms P-R-T Axes : 039 032 046 degrees QTc Int : 460 ms Normal sinus rhythm Normal ECG Confirmed by JOSE L LOWE ([id number]), clinical editor CHANDU PROCTOR ([id number]) on 06/21/2019 3:40:45 PM Referred By: Fahad Daley Confirmed By:JOSE L LOWE
--- NOTE | 2019-06-15 03:03 | ED.DCSUM_ITS ---
History of Present Illness Chief Complaint: General Illness Informant: Patient Narrative: Patient stated that she was getting ready to lay down for bed and developed vertigo at home 45 minutes ago. She stated when she moves her head or opens her eyes she feels like the room is spinning. It makes her feel nauseous. She has had remote vertigo in the past. Comes in for further evaluation of this. Patient stated she had some dull achy discomfort in the right side of her chest but that resolved. She is no longer having that. It only lasted for a few moments. Patient stated she had an ulcer on her right low the knee amputation operated on 4 days ago. Per the op note she had a revision of an ulcer that was not healing. She had closure of the wound. She did have a partial ostatectomy just to rule out osteomyelitis. She is on postoperative antibiotics. Denies any headache or visual changes. Current severity is mild to moderate. - Past Medical History (1) Decubitus ulcer of left buttock Status: Acute (2) Osteomyelitis Status: Acute (3) Skin flap infection Status: Acute Comment: left posterior thigh flap (4) Skin ulcer of abdomen Status: Acute (5) Type 2 diabetes mellitus with other skin ulcer Status: Acute (6) Vulvovaginal candidiasis Status: Acute (7) Anxiety and depression Status: Chronic (8) Benign essential HTN Status: Chronic (9) Chronic pain Status: Chronic (10) DM2 (diabetes mellitus, type 2) Status: Chronic (11) HLD (hyperlipidemia) Status: Chronic (12) History of gangrene Status: Chronic (13) History of necrotizing fasciitis Status: Chronic (14) Hx of right BKA Status: Chronic (15) Infection of amputation stump, right lower extremity Status: Chronic Comment: infected seroma anterior aspect right BKA stump (16) 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: Chronic (17) Open wound of right lower leg with complication Status: Chronic Comment: open surgical wound anterior aspect right BKA stump (18) PVD (peripheral vascular disease) Status: Chronic (19) 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 Status: Chronic Comment: right BKA (20) Pressure sore of left ischium, stage 4 Status: Chronic (21) Smoker Status: Chronic (22) Status post colostomy Status: Chronic (23) Tobacco abuse Status: Chronic Past Medical History - Allergies and Home Meds Allergies/Adverse Reactions: Allergies fentanyl Allergy (Verified 06/15/19 02:48) Other CONFUSION morphine Adverse Reaction (Verified 06/15/19 02:48) Upset Stomach CONFUSION Primary Care Physician: Sasha Rodriguez MD [Primary Care Provider] - Prior records reviewed: Yes Past Medical History: - - See problem list Surgical History: TURP, - - Right leg below the knee amputation with ulcer revision, other surgeries reviewed with patient Smoking Status: Current every day smoker Alcohol: None Drugs: None - Family History Maternal Family History: Family History (Last Reviewed 06/03/19 @ 14:31 by Joselyn Dumont) Father Cancer Mother Hypertension Fibromyalgia Thyroid disorder Brother Diabetes Grandmother Myocardial infarction Grandfather Cancer Family History: Reports: Diabetes Review of Systems General: Denies: Chills, Fever, Sweats Eyes: Denies: Visual changes - bilaterally, Diplopia ENT: Denies: Rhinorrhea, Sore throat Cardiovascular: Denies: Chest pain, Palpitations Respiratory: Denies: Dyspnea, Cough, Dyspnea on exertion Gastrointestinal: Reports: Nausea. Denies: Abdominal pain, Vomiting, Diarrhea, Melena, Hematochezia Genitourinary: Denies: Dysuria, Hematuria, Frequency Musculoskeletal: Denies: Back pain, Extremity Pain Skin: Denies: Rash, Wounds Neurological: Reports: - - Vertigo. Denies: Headache, Weakness, Numbness Physical Exam Vital Signs/Narrative: Vital Signs Temp Pulse Resp BP Pulse Ox 06/15/19 02:57 97.5 F L 76 16 109/69 96 06/15/19 02:43 97.5 F L 76 16 109/69 96 General: Well nourished, Well developed, No Acute Distress Head: Normocephalic, Atraumatic Eyes: Perrl, EOMI, - - Positive for horizontal nystagmus when looking to the right. Positive vertigo with moving her head to the right and left. ENT: Moist mucous membranes, No rhinorrhea Neck: Supple, Nontender Cardiovascular: Regular rate, Regular rhythm, No murmurs Respiratory: No distress, CTA bilaterally, Chest nontender Abdomen: Soft, Nontender, Nondistended, Normal bowel sounds Back: Nontender, Normal Inspection Extremities: Nontender, No edema, - - Right below the knee amputation surgical site bandage. No redness surrounding Skin: Normal color, No rash Neurological: Alert, Oriented x3, Cranial nerves II-XII grossly intact, Normal Strength, Normal Sensation Psychological: Normal affect, Normal Mood Diagnostic/Tx/Re-eval Laboratory Results 06/15/19 06/15/19 02:47 02:47 WBC 6.3 RBC 4.71 Hgb 14.3 Hct 43.6 MCV 92.6 MCH 30.4 MCHC 32.8 RDW Std Deviation 47.2 H RDW Coeff of Mona 13.8 Plt Count 292 MPV 9.9 Immature Gran % (Auto) 0.300 Neut % (Auto) 57.3 Lymph % (Auto) 28.3 [place] % (Auto) 7.0 Eos % (Auto) 5.3 H Baso % (Auto) 1.8 H Absolute Neuts (auto) 3.6 Absolute Lymphs (auto) 1.77 Nucleated RBC % 0 Sodium 144 Potassium 3.6 Chloride 108 H Carbon Dioxide 30.0 Anion Gap 6 BUN 10 Creatinine 0.70 Estim Creat Clear Calc 101.30 Est GFR (MDRD) Af Amer 116 Est GFR (MDRD) Non-Af 96 BUN/Creatinine Ratio 14.3 Glucose 150 H Calcium 8.5 Troponin I < 0.015 - Medical Decision Making EKG obtained upon arrival shows normal sinus rhythm at a rate of 79 without acute ischemia. Lab work obtained. Patient given IV fluids Zofran and meclizine. Lab work unremarkable except for chloride of 108. Troponin negative. CBC shows no leukocytosis or anemia. Patient felt much better after treatment. She was able to tolerate oral. At this time I feel she can be discharged to follow-up as an outpatient. I feel she has peripheral vertigo. I do not feel she has a central cause. Will be discharged with Zofran and meclizine ED Disposition - Plan for ED Patient: Disposition: Home or Assisted Living Diagnosis: Peripheral vertigo Instructions: VERTIGO, Unspecified Prescriptions: Meclizine HCl [Antivert] 25 mg PO TID PRN PRN #10 tab PRN Reason: Vertigo Prescription Printed Ondansetron [Zofran Odt] 4 mg PO Q8H PRN PRN #10 tab PRN Reason: Nausea Prescription Printed Referrals: Sasha Rodriguez MD [Primary Care Provider] -
[2019-06-15] MEDS: Meclizine HCl 25 MG Tablet PO (03:08)
[2019-06-15] MEDS: Ondansetron 4 MG/2 ML Vial IV (03:08)
[2019-06-15 03:14] LABS: Absolute Lymphocyte Count 1.77 X10^3/uL (0.83-4.51); Absolute Neutrophil Count 3.6 X10^3/uL (2.0-7.7); Basophil# 0.11 X10^3/uL; Basophil% 1.8 % (0-1); Eosinophil# 0.33 X10^3/uL; Eosinophils% 5.3 % (0-5); Hematocrit 43.6 % (37-47); Hemoglobin 14.3 g/dL (12.0-15.0); Lymphocyte # 1.77 X10^3/ul (4.0); Lymphocyte % 28.3 % (19-41); Mean Corp Hgb Conc 32.8 g/dL (32-36); Mean Corpuscular Hgb 30.4 pg (27.0-32.0); Mean Corpuscular Volume 92.6 fL (81-99); Mean Platelet Vol. 9.9 fl (6.2-12.0); Monocyte# 0.44 X10^3/uL; NRBC Flagged by Analyzer 0 % (0-5); Neutrophil # 3.59 X10^3/uL (2.7-7.7); Neutrophil % 57.3 % (47-70); Platelet Count 292 K/mm3 (150-450); RBC Distribution Width CV 13.8 % (11.6-14.6); RBC Distribution Width SD 47.2 fl (35.1-43.9); Red Blood Count 4.71 M/mm3 (4.2-5.4); White Blood Count 6.3 K/mm3 (4.4-11.0)
[2019-06-15 03:31] LABS: Anion Gap 6 (5-15); BUN 10 mg/dL (7-18); BUN/Creat Ratio 14.3 RATIO (10-20); Calcium,Total 8.5 mg/dL (8.5-10.1); Chloride 108 mmol/L (98-107); EST Glomerular Filtration Rate 96 mL/min (>60); Est Glom Filt Rate - Afr Amer 116 mL/min (>60); Glucose 150 mg/dL (74-106); Potassium 3.6 mmol/L (3.5-5.1); Sodium Level 144 mmol/L (136-145)
[2019-06-15 04:26] VITALS: BP 134/86; PULSE 84; RESP 16; O2SAT 98
--- NOTE | 2019-06-15 04:31 | ED.RN ---
[facility] CALLED TO STATE SHE'LL BE HERE TO TRANSPORT PT HOME.
== END 2019-06-15 05:01 | disposition home or self-care (01) ==
PROVIDERS: Emergency Provider Emergency Medicine; Family Provider Internal Medicine; PCP Internal Medicine
DX: H81.399 Other peripheral vertigo, unspecified ear (principal); I10 Essential (primary) hypertension; F32.9 Major depressive disorder, single episode, unspecified; F41.9 Anxiety disorder, unspecified; E78.5 Hyperlipidemia, unspecified; E11.51 Type 2 diabetes mellitus with diabetic peripheral angiopathy without gangrene; G89.29 Other chronic pain; F17.200 Nicotine dependence, unspecified, uncomplicated; Z93.3 Colostomy status; Z89.511 Acquired absence of right leg below knee; Z79.4 Long term (current) use of insulin; Z79.82 Long term (current) use of aspirin; Z79.899 Other long term (current) drug therapy
CPT/HCPCS: 80048; 84484; 85025; 93005; 96361; 96374; 99285; J7040; J2405

== ENCOUNTER 2019-07-05 11:00 | Outpatient (RCR) | payer MEDICARE, MEDICAID, SELFPAY ==
[2019-06-03 14:59] VITALS: BMI 30.2
[2019-06-08 00:42] VITALS: BP 117/74; PULSE 95; RESP 18; TEMP 35.5
[2019-06-21 11:00] VITALS: BP 129/66; PULSE 100; RESP 20; TEMP 36; BMI 33.3
--- NOTE | 2019-06-21 13:34 | PN.PCM_ITS ---
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 Code(s): T87.89 - Other complications of amputation stump; L97.919 - Non-pressure chronic ulcer of unspecified part of right lower leg with unspecified severity (2) 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 Status: Chronic Code(s): T87.89 - Other complications of amputation stump; M79.604 - Pain in right leg Comment: right BKA (3) Tobacco abuse Status: Chronic Code(s): Z72.0 - Tobacco use (4) DM2 (diabetes mellitus, type 2) Status: Chronic Code(s): E11.9 - Type 2 diabetes mellitus without complications Type of Wound Date of Service: 06/21/19 Chief Complaint: 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 History of Wound: Surgery 12/28/18 - 1. 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 2. Partial ostectomy tibia for osteomyelitis. 3. Complex secondary wound closure revision reconstruction. On 06/11/19 - 1. Surgical preparation of right BKA stump with excisional debridement non healing painful ulcer. 2. Partial ostectomy tibia for osteomyletis. 3. 3 cm complex secondary wound closure. Operative culture - Staphylococcus aureas. She was discharged on Doxycycline which the bacteria is sensitive to. Pathology is pending. Encourage nutritional supplementation with protein to help the healing process. Today she denies fever. Her appetite is ok. Progress of Wound: Improved. - Physical Exam Vital Signs Temp Pulse Resp BP 96.8 F L 100 20 H 129/66 H 06/21/19 11:00 06/21/19 11:00 06/21/19 11:00 06/21/19 11:00 General: Alert, Oriented x3, Cooperative HEENT: Atraumatic Oral: Moist Mucosa Lungs: Normal air movement Cardiovascular: Regular rate Extremities: Capillary Refill Less than 3 Seconds Skin: Ulcer/ Wound - right bka incision is intact Wound Measurements and Assessment WC - Nurse 1 - General Ulcer Measurement Start: 06/21/19 11:00 Freq: Status: Active Protocol: Activity Type Activity Date Activity User E-Sign Co-Sign Detail Recorded Client Recorded Date Recorded By Document 06/21/19 11:00 DL [id number] 06/21/19 11:05 DL 06/21/19 11:00 Wound Center Nurse 1 [Ulcer Assessment] #5 right yusuf/post op incision -Current Size (cm) - Length 0.1 -Current Size (cm) - Width 0.1 -Current Size (cm) - Depth 0.1 -Total Square Cm 0.01 -Photo Taken Yes -Exudate Amt None Present -Wound Margin Flat & Intact -Granulation Amt Large (67-100%) -Granulation Quality [place] -Necrosis Amt None Present (0 %) -Structure Exposed N/A -Texture (Love-wound Skin Appearance) Fluctuance, Scarring -Moisture (Love-wound Skin Appearance No Abnormality ) -Color (Love-wound Skin Appearance) No Abnormality -Temperature (Love-wound Skin No Abnormality Appearance) (Pt Warm) -Tenderness on Palpation (Love-wound No Skin Appearance) -Ulcer Cleansing Rinsed/ Irrigated with Saline -Foul Odor after Cleansing No -Anesthetic Used 4% Lidocaine Solution - Nurse 2 - General Ulcer CM Notes Start: 06/21/19 11:00 Freq: Status: Active Protocol: Activity Type Activity Date Activity User E-Sign Co-Sign Detail Recorded Client Recorded Date Recorded By Document 06/21/19 11:28 [email or web address] [id number] 06/21/19 11:30 06/21/19 11:28 Wound Center Nurse 2 [Procedure/Treatment] -Correct Patient No -Correct Side, Site, Position No -Correct Procedure No -Procedure Performed No -Wound/Ulcer Outcome Not Healed [See Physician Procedure note for Specifics] Pain Scale: 0-10 Numeric [Pain] -Is Patient Pain Free? Yes Musculoskeletal: No Tenderness to Palpation of Joints or Extremities Neurological: Neuro grossly intact Psych/Mental Status: Normal Affect, Appropriate Debridement Note Post-Debridement Measurements/Treatment - Nurse 2 - General Ulcer CM Notes Start: 06/21/19 11:00 Freq: Status: Active Protocol: Activity Type Activity Date Activity User E-Sign Co-Sign Detail Recorded Client Recorded Date Recorded By Document 06/21/19 11:28 JF [id number] 06/21/19 11:30 06/21/19 11:28 Wound Center Nurse 2 #5 right yusuf/post op incision -Correct Patient No -Correct Side, Site, Position No -Correct Procedure No -Procedure Performed No -Wound/Ulcer Outcome Not Healed Pain Scale: 0-10 Numeric Is Patient Pain Free? Yes No debridement was completed today Assessment/Plan Assessment: 1. Painful right BKA stump. 2. 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 3. 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 4. Diabetes mellitus. 5. PVD. 6. Smoker. 7. History of necrotizing infection. 8. History of diverting colostomy. 9. 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 Plan: She may apply antibiotic ointment to the incision once per day. It is ok for her to get the incision wet in the shower. Wear JOSE D wrap for compression. Wound culture from 06/11/19 surgery grew Staphylococcus aureas. Renewed the Doxycycline. Pathology of tissue and bone still pending. Renew Percocet (28) and Valium (14). She is done with her antibiotics, Bactrim DS and Flagyl from her surgery in December. Her operative culture was negative. Repeat wound culture from 05/03/19 showed Staphylococcus aureus. Continue Doxycycline. Follow up in one week. Code Visit [id number]
[2019-06-28 11:31] VITALS: BP 127/71; PULSE 94; RESP 16; TEMP 36.4; BMI 33.3
--- NOTE | 2019-06-28 14:28 | PCM.WC.PN ---
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 Code(s): T87.89 - Other complications of amputation stump; L97.919 - Non-pressure chronic ulcer of unspecified part of right lower leg with unspecified severity (2) 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 Status: Chronic Code(s): T87.89 - Other complications of amputation stump; M79.604 - Pain in right leg Comment: right BKA (3) Tobacco abuse Status: Chronic Code(s): Z72.0 - Tobacco use (4) DM2 (diabetes mellitus, type 2) Status: Chronic Code(s): E11.9 - Type 2 diabetes mellitus without complications Type of Wound Date of Service: 06/28/19 Chief Complaint: Nonhealing ulcer anterior aspect right BKA stump. History of Wound: Surgery 12/28/18 - 1. 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 2. Partial ostectomy tibia for osteomyelitis. 3. Complex secondary wound closure revision reconstruction. Wound care - Collagen hydrogel. Operative culture - negative. She was discharged on Bactrim DS and Flagyl. Recent wound culture from 05/03/19 showed Staphylococcus aureus. She was placed on Doxycycline. Pathology - negative for osteomyelitis. Prealbumin from 12/29/18 was 15.0. Encourage nutritional supplementation with protein to help the healing process. MRI from 12/01/18 showed small rim-enhancing abscess at the anterior lateral subcutaneous tissues. Below-knee amputation without acute osteomyelitis. Mild medial and lateral compartment cartilage loss. Tiny popliteal cyst. Muscle atrophy. On 06/11/19 she under went surgical preparation anterior aspect right BKA stump with excisional debridement non healing painful ulcer and partial ostectomy tibia fro osteomyelitis and 3 cm complex secondary wound closure. She was discharged home on Doxycycline antibiotics. The pathology of the bone showed acute osteomyelitis. Wound cultures came back positive for Staphylococcus aureas which is sensitive to the Doxycycline that she is on. Today she denies fever. Her appetite is ok. Progress of Wound: Improved. - Physical Exam Vital Signs Temp Pulse Resp BP 97.5 F L 94 16 127/71 H 06/28/19 11:31 06/28/19 11:31 06/28/19 11:31 06/28/19 11:31 General: Alert, Oriented x3, Cooperative HEENT: Atraumatic Oral: Moist Mucosa Lungs: Normal air movement Cardiovascular: Regular rate Extremities: Capillary Refill Less than 3 Seconds, Edema Skin: Ulcer/ Wound - right BKA stump now has an incision. The sutures were removed today. The incision is clean and dry. Very sensitive to palpation. Wound Measurements and Assessment WC - Nurse 1 - General Ulcer Measurement Start: 06/21/19 11:00 Freq: Status: Active Protocol: Activity Type Activity Date Activity User E-Sign Co-Sign Detail Recorded Client Recorded Date Recorded By Document 06/28/19 11:31 MW [id number] 06/28/19 11:34 MW 06/28/19 11:31 Wound Center Nurse 1 [Ulcer Assessment] #5 right yusuf/post op incision -Combined with other wound No -Current Size (cm) - Length 0.1 -Current Size (cm) - Width 0.1 -Current Size (cm) - Depth 0.1 -Total Square Cm 0.01 -Date of Last Picture (Recall this 06/28/19 field) -Photo Taken Yes -Epithelialization None Present [Edema Assessment] -Lower Limb Edema Present No WC - Nurse 2 - General Ulcer CM Notes Start: 06/21/19 11:00 Freq: Status: Active Protocol: Activity Type Activity Date Activity User E-Sign Co-Sign Detail Recorded Client Recorded Date Recorded By Document 06/28/19 11:54 [id number] 06/28/19 12:00 06/28/19 11:54 Wound Center Nurse 2 [Procedure/Treatment] #5 right yusuf/post op incision -Correct Patient No -Correct Side, Site, Position No -Correct Procedure No -Procedure Performed No -Post Debridement Size (cm) - Length 0 -Post Debridement Size (cm) - Width 0 -Post Debridement Size (cm) - Depth 0 -Total Square Cm 0 -Wound/Ulcer Outcome Healed- Surgical Closure [See Physician Procedure note for Specifics] Pain Scale: 0-10 Numeric [Pain] -Is Patient Pain Free? Yes Musculoskeletal: Tenderness Neurological: Neuro grossly intact Psych/Mental Status: Normal Affect, Appropriate Debridement Note Post-Debridement Measurements/Treatment WC - Nurse 2 - General Ulcer CM Notes Start: 06/21/19 11:00 Freq: Status: Active Protocol: Activity Type Activity Date Activity User E-Sign Co-Sign Detail Recorded Client Recorded Date Recorded By Document 06/21/19 11:28 [id number] 06/21/19 11:30 Document 06/28/19 11:54 [id number] 06/28/19 12:00 06/21/19 06/28/19 11:28 11:54 Wound Center Nurse 2 #5 right yusuf/post op incision -Correct Patient No No -Correct Side, Site, Position No No -Correct Procedure No No -Procedure Performed No No -Post Debridement Size (cm) - Length 0 -Post Debridement Size (cm) - Width 0 -Post Debridement Size (cm) - Depth 0 -Total Square Cm 0 -Wound/Ulcer Outcome Not Healed Healed- Surgical Closure Pain Scale: 0-10 Numeric Is Patient Pain Free? Yes Yes No debridement was completed today Assessment/Plan Assessment: 1. Painful right BKA stump. 2. 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 3. 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 4. Diabetes mellitus. 5. PVD. 6. Smoker. 7. History of necrotizing infection. 8. History of diverting colostomy. 9. 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 Plan: She is done with her antibiotics, Bactrim DS and Flagyl from her surgery in December. Her operative culture was negative. Repeat wound culture from 05/03/19 showed Staphylococcus aureus. Continue Doxycycline. The Pathology was negative for osteomyelitis. Her Prealbumin from 12/29/18 was 15.0. Encourage nutritional supplementation with protein to help the healing process. On 06/11/19 she under went surgical preparation anterior aspect right BKA stump with excisional debridement non healing painful ulcer and partial ostectomy tibia fro osteomyelitis and 3 cm complex secondary wound closure. She was discharged home on Doxycycline antibiotics. The pathology of the bone showed acute osteomyelitis. Wound cultures came back positive for Staphylococcus aureas which is sensitive to the Doxycycline that she is on. Renewed Percocet (21) and Valium (10). OARRS report reviewed. Encouraged the patient to stop smoking as it may have deleterious effects on wound healing. Follow 1 week. Code Visit [id number]
[2019-07-05 11:41] VITALS: BP 132/73; PULSE 95; RESP 20; TEMP 36.4; BMI 33.3
--- NOTE | 2019-07-05 18:34 | PN.PCM_ITS ---
Type of Wound Date of Service: 07/05/19 Chief Complaint: Nonhealing ulcer anterior aspect right BKA stump with recent surgical closure 06/11/19. History of Wound: Surgery 06/11/19 - surgical preparation anterior aspect right BKA stump with excisional debridement non healing painful ulcer and partial ostectomy tibia fro osteomyelitis and 3 cm complex secondary wound closure. Wound care - daily dry dressings with compression olya wrap. Operative culture - soft tissue - Staphylococcus aureus, bone - Staphylococcus aureus. She was discharged on Doxycycline. Pathology - positive for acute osteomyelitis. Prealbumin from 12/29/18 was 15.0. MRI from 12/01/18 showed small rim-enhancing abscess at the anterior lateral subcutaneous tissues. Below-knee amputation without acute osteomyelitis. Mild medial and lateral compartment cartilage loss. Tiny popliteal cyst. Muscle atrophy. Today she denies fever. Her appetite is ok. Her surgical pain is improved and stable. Progress of Wound: Surgical closure on 06/11/19. - Physical Exam Vital Signs Temp Pulse Resp BP 97.6 F L 95 20 H 132/73 H 07/05/19 11:41 07/05/19 11:41 07/05/19 11:41 07/05/19 11:41 Wound Measurements and Assessment WC - Nurse 1 - General Ulcer Measurement Start: 06/21/19 11:00 Freq: Status: Active Protocol: Activity Type Activity Date Activity User E-Sign Co-Sign Detail Recorded Client Recorded Date Recorded By Document 07/05/19 11:41 DL [id number] 07/05/19 11:54 DL 07/05/19 11:41 Wound Center Nurse 1 [Ulcer Assessment] #5 right yusuf/post op incision -Current Size (cm) - Length 0.1 -Current Size (cm) - Width 0.1 -Current Size (cm) - Depth 0.1 -Total Square Cm 0.01 -Photo Taken No -Exudate Amt None Present -Wound Margin Flat & Intact -Granulation Amt Large (67-100%) -Granulation Quality [place] -Necrosis Amt None Present (0 %) -Structure Exposed N/A -Texture (Love-wound Skin Appearance) Scarring -Moisture (Love-wound Skin Appearance No Abnormality ) -Color (Love-wound Skin Appearance) No Abnormality -Temperature (Love-wound Skin No Abnormality Appearance) (Pt Warm) -Tenderness on Palpation (Love-wound Yes Skin Appearance) -Ulcer Cleansing Rinsed/ Irrigated with Saline -Foul Odor after Cleansing No -Anesthetic Used 4% Lidocaine Solution - Nurse 2 - General Ulcer CM Notes Start: 06/21/19 11:00 Freq: Status: Active Protocol: Activity Type Activity Date Activity User E-Sign Co-Sign Detail Recorded Client Recorded Date Recorded By Document 07/05/19 12:14 [id number] 07/05/19 12:21 07/05/19 12:14 Wound Center Nurse 2 [Procedure/Treatment] -Correct Patient No -Correct Side, Site, Position No -Correct Procedure No -Procedure Performed No -Post Debridement Size (cm) - Length 0 -Post Debridement Size (cm) - Width 0 -Post Debridement Size (cm) - Depth 0 -Total Square Cm 0 -Wound/Ulcer Outcome Healed- Surgical Closure [See Physician Procedure note for Specifics] Pain Scale: 0-10 Numeric [Pain] -Is Patient Pain Free? Yes Debridement Note Post-Debridement Measurements/Treatment - Nurse 2 - General Ulcer CM Notes Start: 06/21/19 11:00 Freq: Status: Active Protocol: Activity Type Activity Date Activity User E-Sign Co-Sign Detail Recorded Client Recorded Date Recorded By Document 06/21/19 11:28 [id number] 06/21/19 11:30 Document 06/28/19 11:54 [id number] 06/28/19 12:00 Document 07/05/19 12:14 [id number] 07/05/19 12:21 06/21/19 06/28/19 07/05/19 11:28 11:54 12:14 Wound Center Nurse 2 #5 right yusuf/post op incision -Correct Patient No No No -Correct Side, Site, Position No No No -Correct Procedure No No No -Procedure Performed No No No -Post Debridement Size (cm) - Length 0 0 -Post Debridement Size (cm) - Width 0 0 -Post Debridement Size (cm) - Depth 0 0 -Total Square Cm 0 0 -Wound/Ulcer Outcome Not Healed Healed- Healed- Surgical Surgical Closure Closure Pain Scale: 0-10 Numeric Is Patient Pain Free? Yes Yes Yes Wound debrided: #5 Anterior aspect right BKA stump with surgical closure. Laterality: Right Wound Grade/Stage: 4. No debridement was completed today - the patient had surgery 06/11/19 with surgical closure. Assessment/Plan Assessment: 1. Nonhealing painful ulcer anterior aspect right BKA stump with recent surgical closure 06/11/19. 2. Diabetes mellitus. 3. PVD. 4. Smoker. 5. History of necrotizing infection. 6. Osteomyelitis. 7. s/p surgical preparation anterior aspect right BKA stump with excisional debridement nonhealing painful ulcer and partial ostectomy tibia for osteomyelitis and 3 cm complex secondary wound closure. Plan: Patient had an exposed Monocryl dermal suture that was easily removed today. Will apply antibiotic ointment daily to the lower portion of the incision where the manipulation was. Operative culture showed Staphylococcus aureus in both the soft tissue and bone. She was placed on Doxycycline and will continue them. The Pathology was positive for acute osteomyelitis. Her Preal bumin from 12/29/18 was 15.0. Encourage nutritional supplementation with protein to help the healing process. Encouraged the patient to stop smoking as it may have deleterious effects on wound healing. Follow 2 weeks.
== END 2019-07-08 23:59 ==
LOC: WC 11:00
PROVIDERS: Family Provider Internal Medicine; PCP Internal Medicine; Visit Provider Surgery
DX: T87.89 Other complications of amputation stump (principal); Y83.8 Other surgical procedures as the cause of abnormal reaction of the patient, or of later complication, without mention of misadventure at the time of the procedure; F17.200 Nicotine dependence, unspecified, uncomplicated; E11.51 Type 2 diabetes mellitus with diabetic peripheral angiopathy without gangrene
CPT/HCPCS: 99213; G0463

== ENCOUNTER 2019-07-19 11:29 | Outpatient (RCR) | payer MEDICARE, MEDICAID, SELFPAY ==
[2019-07-09 00:43] VITALS: BP 132/73; PULSE 95; RESP 20; TEMP 36.4
[2019-07-19 11:54] VITALS: BP 126/79; PULSE 98; RESP 16; TEMP 35.9; BMI 33.3
--- NOTE | 2019-07-19 15:04 | PCM.WC.PN ---
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 Current Visit: No Code(s): T87.89 - Other complications of amputation stump; L97.919 - Non-pressure chronic ulcer of unspecified part of right lower leg with unspecified severity (2) Smoker Status: Chronic Current Visit: Yes Code(s): F17.200 - Nicotine dependence, unspecified, uncomplicated (3) 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 Status: Chronic Current Visit: Yes Code(s): T87.89 - Other complications of amputation stump; M79.604 - Pain in right leg Comment: right BKA (4) DM2 (diabetes mellitus, type 2) Status: Chronic Current Visit: Yes Code(s): E11.9 - Type 2 diabetes mellitus without complications Type of Wound Date of Service: 07/19/19 Chief Complaint: Nonhealing ulcer anterior aspect right BKA stump with recent surgical closure 06/11/19. History of Wound: Surgery 06/11/19 - surgical preparation anterior aspect right BKA stump with excisional debridement non healing painful ulcer and partial ostectomy tibia fro osteomyelitis and 3 cm complex secondary wound closure. Wound care - daily dry dressings with compression olya wrap. Operative culture - soft tissue - Staphylococcus aureus, bone - Staphylococcus aureus. She was discharged on Doxycycline. Pathology - positive for acute osteomyelitis. Prealbumin from 12/29/18 was 15.0. MRI from 12/01/18 showed small rim-enhancing abscess at the anterior lateral subcutaneous tissues. Below-knee amputation without acute osteomyelitis. Mild medial and lateral compartment cartilage loss. Tiny popliteal cyst. Muscle atrophy. Today she denies fever. Her appetite is ok. Her surgical pain is improved and stable. Progress of Wound: Surgical closure on 06/11/19. She is healed today. - Physical Exam Vital Signs Temp Pulse Resp BP 96.6 F L 98 16 126/79 H 07/19/19 11:54 07/19/19 11:54 07/19/19 11:54 07/19/19 11:54 General: Alert, Oriented x3, Cooperative HEENT: Atraumatic Oral: Moist Mucosa Lungs: Normal air movement Cardiovascular: Regular rate Abdomen: Soft Skin: Incision - healed Wound Measurements and Assessment WC - Nurse 1 - General Ulcer Measurement Start: 07/19/19 11:54 Freq: Status: Active Protocol: Activity Type Activity Date Activity User E-Sign Co-Sign Detail Recorded Client Recorded Date Recorded By Document 07/19/19 11:54 [facility] [id number] 07/19/19 11:56 [facility] 07/19/19 11:54 Wound Center Nurse 1 [Ulcer Assessment] #5 right yusuf -Combined with other wound No -Current Size (cm) - Length 0.1 -Current Size (cm) - Width 0.1 -Current Size (cm) - Depth 0.1 -Total Square Cm 0.01 -Date of Last Picture (Recall this 07/19/19 field) -Photo Taken Yes -Epithelialization Large 67-100% - Nurse 2 - General Ulcer CM Notes Start: 07/19/19 11:54 Freq: Status: Active Protocol: Activity Type Activity Date Activity User E-Sign Co-Sign Detail Recorded Client Recorded Date Recorded By Document 07/19/19 12:30 [id number] 07/19/19 12:31 07/19/19 12:30 Wound Center Nurse 2 [Procedure/Treatment] -Correct Patient No -Correct Side, Site, Position No -Correct Procedure No -Procedure Performed No -Post Debridement Size (cm) - Length 0 -Post Debridement Size (cm) - Width 0 -Post Debridement Size (cm) - Depth 0 -Total Square Cm 0 -Wound/Ulcer Outcome Healed- Epithelialized [See Physician Procedure note for Specifics] Pain Scale: 0-10 Numeric [Pain] -Is Patient Pain Free? Yes Musculoskeletal: Tenderness - tenderness to stump but it is improving Neurological: Neuro grossly intact Psych/Mental Status: Normal Affect, Appropriate Debridement Note Post-Debridement Measurements/Treatment - Nurse 2 - General Ulcer CM Notes Start: 07/19/19 11:54 Freq: Status: Active Protocol: Activity Type Activity Date Activity User E-Sign Co-Sign Detail Recorded Client Recorded Date Recorded By Document 07/19/19 12:30 [id number] 07/19/19 12:31 07/19/19 12:30 Wound Center Nurse 2 #5 right yusuf -Correct Patient No -Correct Side, Site, Position No -Correct Procedure No -Procedure Performed No -Post Debridement Size (cm) - Length 0 -Post Debridement Size (cm) - Width 0 -Post Debridement Size (cm) - Depth 0 -Total Square Cm 0 -Wound/Ulcer Outcome Healed- Epithelialized Pain Scale: 0-10 Numeric Is Patient Pain Free? Yes No debridement was completed today Assessment/Plan Active Problems (Last Reviewed 06/03/19 @ 14:31 by Joselyn Dumont) Smoker (Chronic) 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 (Chronic) right BKA DM2 (diabetes mellitus, type 2) (Chronic) Assessment: 1. Nonhealing painful ulcer anterior aspect right BKA stump with recent surgical closure 06/11/19. 2. Diabetes mellitus. 3. PVD. 4. Smoker. 5. History of necrotizing infection. 6. Osteomyelitis. 7. s/p surgical preparation anterior aspect right BKA stump with excisional debridement nonhealing painful ulcer and partial ostectomy tibia for osteomyelitis and 3 cm complex secondary wound closure. Plan: She is healed today. She sees [facility] next week. She is to continue her Doxycycline through this prescription (she states she has a couple days left). Operative culture showed Staphylococcus aureus in both the soft tissue and bone. She was placed on Doxycycline and will continue them. The Pathology was positive for acute osteomyelitis. Her Prealbumin from 12/29/18 was 15.0. Encourage nutritional supplementation with protein to help the healing process. Encouraged the patient to stop smoking as it may have deleterious effects on wound healing. Code Visit Office Visits / Consults: [id number] OV L3 Est
== END 2019-08-07 23:59 ==
LOC: WC 11:29
PROVIDERS: Family Provider Internal Medicine; PCP Internal Medicine; Visit Provider Surgery
DX: Z09 Encounter for follow-up examination after completed treatment for conditions other than malignant neoplasm (principal); Z89.511 Acquired absence of right leg below knee; E11.51 Type 2 diabetes mellitus with diabetic peripheral angiopathy without gangrene; F17.200 Nicotine dependence, unspecified, uncomplicated
CPT/HCPCS: 99212; G0463

== ENCOUNTER 2019-07-21 19:05 | Emergency (ER) | payer MEDICARE, MEDICAID, SELFPAY ==
[2019-07-21 19:06] VITALS: BP 135/80; PULSE 90; RESP 18; TEMP 36.7; O2SAT 98; BMI 28.8
--- NOTE | 2019-07-21 20:09 | ED.VISSUMM ---
- ER Visit Summary Date of Service: 07/21/19 Chief Complaint: Abdominal pain History of Present Illness: The patient is a 49 F who presents the emergency department 2 weeks of increasing pain a prior surgical site on the left lower quadrant of her abdomen. She states that she had to have a colostomy placed decubitus ulcer of the buttock. This was reversed approximately 2 [address] hernandez. She states now she is having pain at the surgical site to very light touch. She notes that she is moving her bowels normally. No fevers. No blood in stool. She did have some constipation but not recently. She was scared but no what to do so she came to the emergency department. Physical Examination: Afebrile vital signs stable Gen: Well-nourished well-developed Head: Normocephalic atraumatic Eyes: Perrl EOMI ENT: TMs clear no rhinorrhea moist mucous membranes Neck: Supple no lymphadenopathy no JVD nontender CVS: Regular rate rhythm no murmurs normal S1-S2 Respiratory: No distress clear to auscultation bilaterally chest nontender Abdomen: Soft nontender nondistended normal bowel sounds no masses there is a well-healed incision in the left lower quadrant. I do not appreciate any mass or seroma. No hernia. The skin is sensitive to touch but I do not appreciate any pain or abnormal findings with deep palpation. Back: Nontender Extremity: Nontender no edema Skin: Normal color no rash Neuro: alert orientated ?3 CN II-XII intact normal strength sensation reflexes gait cerebellar Psych: Normal affect normal mood Test Results: Not indicated Emergency Department Course and Treatment: Do not see anything on physical exam to suggest infection, postoperative complications, hernias, or intra-abdominal pathology. This is been present for 2 weeks. Patient may follow-up with her surgeon Impression: 1. Acute abdominal pain This note was generated with [employer] dictation software. It may contain incorrect words, spelling, and punctuation that were not noted in review of the chart prior to signing ED Disposition - Plan for ED Patient: Disposition: Home or Assisted Living Instructions: POST OP WOUND CHECK, General Referrals: Jim Meraz MD [STAFF PHYSICIAN] -
[2019-07-21 20:41] VITALS: BP 108/63; PULSE 90; RESP 17; O2SAT 96
== END 2019-07-21 20:45 | disposition home or self-care (01) ==
PROVIDERS: Emergency Provider Emergency Medicine; Family Provider Internal Medicine; PCP Internal Medicine
DX: R10.32 Left lower quadrant pain (principal); R11.0 Nausea; K59.00 Constipation, unspecified; E11.9 Type 2 diabetes mellitus without complications; I10 Essential (primary) hypertension; E78.00 Pure hypercholesterolemia, unspecified; G89.29 Other chronic pain; Z79.82 Long term (current) use of aspirin; Z79.4 Long term (current) use of insulin; Z79.899 Other long term (current) drug therapy; Z72.0 Tobacco use
CPT/HCPCS: 99282

== ENCOUNTER 2019-12-04 17:28 | Emergency (ER) | payer MEDICAID, SELFPAY ==
[2019-12-01 14:38] VITALS: BMI 28.8
[2019-12-04 17:29] VITALS: BP 104/72; PULSE 98; RESP 17; TEMP 37.2; O2SAT 94; BMI 34.4
[2019-12-04 17:32] VITALS: BP 104/72; PULSE 98; RESP 18; TEMP 37.2; O2SAT 94
--- NOTE | 2019-12-04 17:42 | RAD_ITS ---
STUDY: X-RAY - RIGHT TIBIA AND FIBULA REASON FOR EXAM: Female, 49 years old. PT WITH RBK AMPUTATION, REDNESS, TENDERNESS, AND PAIN. FEVER AT HOME. TECHNIQUE: 2 view(s) of the tibia and fibula were obtained. COMPARISON: Prior study of 11/20/2018 FINDINGS: Status post below the knee amputation changes of the right tibia and fibula are noted. Findings appears similar to the previous study. There is no evidence of osteomyelitis. There is no evidence of soft tissue gas or radiopaque foreign body. RAD/Tibia & Fibula 2 Views IMPRESSION: Status post [id number] amputation changes. There is no radiographic evidence of osteomyelitis. No soft tissue gas is seen. Electronically Signed: Adrian Ramsey MD at 18:12 EDT , Service support ,
--- NOTE | 2019-12-04 17:44 | ED.DCSUM_ITS ---
- ER Visit Summary Date of Service: 12/04/19 Chief Complaint: Right lower leg stump post below the knee amputation from a year ago with redness and pain History of Present Illness: The patient is a 49 F who had an amputation of the right lower leg a year ago secondary to an arterial blood clot. She is also diabetic and high cholesterol. Patient states she just got her prosthetic lower leg about 2 months ago. On Friday about 6 days ago she started having redness and swelling to her right lower leg. She went and saw her plastic surgeon Dr. Guadarrama who had done the revision of her lower leg. On Friday her leg looked better and was not red or swollen. So they were going to watch it. She states in the last day or so the redness and swelling is come back. She also has pain. She denies any fever or chills. There is been no trauma. She denies any other symptoms. This is never been infected since her amputation a year ago. Physical Examination: Well-appearing middle-aged female. Vital signs are stable afebrile. She is in no distress. H EENT exam unremarkable. Lungs clear to auscultation. Heart regular rhythm no murmur. Abdomen soft nontender. Extremities moves all 4. She has a right lower leg below the knee amputation. Just above the stump anteriorly there is a area about the size of a half dollar that is red, swollen and tender. It does feel slightly fluctuant. There is no lymphangitic streaking. There is no involvement of the knee. It is not red or swollen or tender. She has normal range of motion. There is no inguinal lymphadenopathy. There is no sloughing of the skin. Other extremities are unremarkable. Neurologically she is awake and alert with no focal motor deficits. Test Results: Right lower leg tib-fib x-ray shows no subcu air. No obvious osteomyelitis. Read both by myself and the radiologist. 2 views. Emergency Department Course and Treatment: Let will be applied to the area that is red and tender. I am in attempt to aspirate to see if there is any pus. Aspiration of the area I got gross blood. No obvious pus. It will be sent for cell count and culture. All the lab saw was blood so the cell count would not be done. Treatment Plan: Patient placed on Keflex and Bactrim in case there is an infection but currently I think this is more of a soft tissue hematoma from trauma from the prosthesis. She will call and follow-up with her surgeon Dr. Guadarrama on Friday. Disposition: Discharge Impression: Right lower leg below the knee amputation with soft tissue hematoma rule out cellulitis History of diabetes This note was generated with [employer] software. It may contain incorrect words, spelling, and punctuation that were not noted in review of the chart prior to signing ED Disposition - Plan for ED Patient: Disposition: Home or Assisted Living Instructions: ED Hematoma Prescriptions: Smz/Tmp Ds [Bactrim Ds] 1 tab PO BID #14 tab Prescription Printed Cephalexin [Keflex] 500 mg PO Q6 #28 cap Prescription Printed Referrals: Grzegorz Guadarrama MD [STAFF PHYSICIAN] - As soon as possible Additional Instructions: Ice to the area. Do not wear your prosthesis. I think this is primarily a bruise from trauma from the prosthesis. Antibiotics Keflex and Bactrim in case there is an early infection. Follow-up with on Friday.
[2019-12-04] MEDS: HYDROcodone Bitartrate/Apap 5/325 Tablet PO (17:58)
[2019-12-04] MEDS: Lidocaine/Epi/Tetracaine 50 ML 1 APPLIC TOPICAL (17:58)
[2019-12-04] MEDS: Cephalexin 250 MG Capsule 500 MG PO (19:41)
[2019-12-04] MEDS: Smz/Tmp Ds Tablet 1 TABLET PO (19:41)
[2019-12-04 19:46] VITALS: BP 130/79
--- NOTE | 2019-12-04 19:49 | ED.DEP ---
ED Disposition - Plan for ED Patient: Disposition: Home or Assisted Living Instructions: ED Hematoma Prescriptions: Smz/Tmp Ds [Bactrim Ds] 1 tab PO BID #14 tab Prescription Printed Cephalexin [Keflex] 500 mg PO Q6 #28 cap Prescription Printed Referrals: Grzegorz Guadarrama MD [STAFF PHYSICIAN] - As soon as possible Additional Instructions: Ice to the area. Do not wear your prosthesis. I think this is primarily a bruise from trauma from the prosthesis. Antibiotics Keflex and Bactrim in case there is an early infection. Follow-up with on Friday.
--- NOTE | 2019-12-04 20:38 | ED.RN ---
LAB CALLED STATING THERE WERE BLOOD CLOTS IN THE SYNOVIAL FLUID TUBE AND SHE WAS NOT GOING TO BE ABLE TO RUN CELL COUNT. AWARE.
== END 2019-12-04 20:19 | disposition home or self-care (01) ==
PROVIDERS: Emergency Provider Emergency Medicine; PCP Internal Medicine
DX: T87.89 Other complications of amputation stump (principal); M79.81 Nontraumatic hematoma of soft tissue; E11.9 Type 2 diabetes mellitus without complications; E78.00 Pure hypercholesterolemia, unspecified; Z89.511 Acquired absence of right leg below knee; Z79.4 Long term (current) use of insulin
CPT/HCPCS: 10160; 73590; 87070; 87205; 89050; 99285

== ENCOUNTER 2019-12-07 10:26 | Inpatient (IN) | payer MEDICARE, MEDICAID, SELFPAY ==
[2019-12-06 10:44] VITALS: BMI 34.4
[2019-12-07] VITALS (8 sets, daily range): BP systolic 116–144; BP diastolic 64–100; PULSE 90–97; RESP 16–18; TEMP 36.7–37.6; O2SAT 94–100; BMI 34.3
--- NOTE | 2019-12-07 10:54 | PCM.HP.BLA ---
History and Physical Date of Admission: 12/07/19 HISTORY OF PRESENT ILLNESS 49 year old woman presents with pain in her right BKA stump when she is wearing her prosthesis. She states she underwent the right BKA about 4 years ago. She had surgery on 12/28/18 for surgical preparation right BKA stump with incision and drainage and excisional debridement chronic infected seroma anterior aspect of stump and partial ostectomy tibia for osteomyelitis and complex secondary wound closure revision reconstruction. She denies any fever. She denies any trauma besides normal wear and tear of the stump within the prosthesis. She was seen in the office last week and a previous painful lump (probable seroma) had resolved after recent revision of her prosthesis. She started noticing increasing pain and redness on the anterior aspect of her amputation stump over the weekend and went to the ED. X-ray showed no fracture and no evidence of osteomyelitis. There was no evidence of soft tissue gas or radiopaque foreign body. Aspiration was done in the ED and blood was obtained suggestive of a hematoma. A culture was obtained and is negative thus far. Compression therapy with an JOSE D wrap was started. She was started on Keflex and Bactrim. Today she noted worsening symptomatology and has failed outpatient therapy. She is being admitted today to start IV antibiotics and proceed with operative intervention of incision and drainage and excisional debridement infected hematoma with possible partial ostectomy for osteomyelitis. PAST MEDICAL HISTORY History of necrotizing fasciitis Tobacco abuse depression History of gangrene Pressure sore of left ischium, stage 4 Osteomyelitis PVD (peripheral vascular disease) HLD (hyperlipidemia) Benign essential HTN Anxiety Diabetes Neuropathy Raynaud disease Vascular disease PAST SURGICAL HISTORY Status post colostomy Reversal of loop colostomy excision left ischial pressure sore Amputation of right lower extremity cholecystectomy ALLERGIES fentanyl morphine MEDICATIONS pregabalin 150 mg capsule 100 mg PO TID cap 06/03/19 [History Confirmed 12/06/19] aspirin 81 mg tablet,delayed release 81 mg PO DAILY #90 tab 07/01/19 [Rx Confirmed 12/06/19] atorvastatin 40 mg tablet 40 mg PO DAILY #90 tab 07/01/19 [Rx Confirmed 12/06/19] clopidogrel 75 mg tablet 75 mg PO DAILY #90 tab 07/01/19 [Rx Confirmed 12/06/19] duloxetine 30 mg capsule,delayed release 60 mg PO BID #180 cap 07/01/19 [Rx Confirmed 12/06/19] pantoprazole 40 mg tablet,delayed release 40 mg PO QDAY #90 tab 07/01/19 [Rx Confirmed 12/06/19] nicotine 21mg/24hr-14mg/24hr-7mg/24hr daily transderm patch,sequential 1 patch TRANSDERMAL QDAY #70 patch 07/06/19 [Rx Confirmed 12/06/19] nicotine 14 mg/24 hr daily transdermal patch 14 mg TRANSDERMAL QDAY #42 patch 07/13/19 [Rx Confirmed 12/06/19] nicotine 21mg/24hr-14mg/24hr-7mg/24hr daily transderm patch,sequential 1 patch TRANSDERMAL QDAY #70 patch 07/13/19 [Rx Confirmed 12/06/19] nicotine 7 mg/24 hr daily transdermal patch 1 patch TRANSDERMAL Q24H #14 patch 07/13/19 [Rx Confirmed 12/06/19] insulin detemir U-100 100 unit/mL (3 mL) subcutaneous pen See Rx Instructions .ROUTE .COMPLEX #15 ml 11/24/19 [Rx Confirmed 12/06/19] hydrocodone 5 mg-acetaminophen 325 mg tablet 1 tab PO DAILY PRN tab 11/25/19 [History Confirmed 12/06/19] blood sugar diagnostic See Rx Instructions .ROUTE .MEDSUPPLY #100 ea 11/26/19 [Rx Confirmed 12/06/19] dulaglutide 1.5 mg/0.5 mL subcutaneous pen injector 1.5 mg SUBCUT QWEEK #2 ml 11/26/19 [Rx Confirmed 12/06/19] insulin lispro 100 unit/mL subcutaneous pen 12 unit SUBCUT TIDAC #15 ml 11/26/19 [Rx Confirmed 12/06/19] Cephalexin [Keflex] 500 mg PO Q6 #28 cap 12/04/19 [Rx Confirmed 12/06/19] Smz/Tmp Ds [Bactrim Ds] 1 tab PO BID #14 tab 12/04/19 [Rx Confirmed 12/06/19] baclofen 20 mg tablet 20 mg PO TID #90 tab 12/06/19 [Rx Confirmed 12/06/19] FAMILY HISTORY Father - Cancer Mother - Hypertension, Fibromyalgia Brother - Diabetes Grandmother - Myocardial infarction Grandfather - Cancer SOCIAL HISTORY Smoking Status: Current every day smoker Tobacco: How many years used: 20 how long ago did patient quit smokin alcohol intake: never substance use type: does not use REVIEW OF SYSTEMS General - Denies fever, fatigue, and weight loss. Eyes - Denies glaucoma. Has cataracts. ENT - Denies nasal congestion and sore throat. Endocrine - Denies excessive thirst and urination. Has heat and cold intolerance. Has diabetes mellitus. Skin - Denies suspicious lesions and skin cancer. Musculoskeletal - Denies joint pain, joint stiffness, weakness of muscles and joints and arthritis. Has back pain. Has increasing pain and redness right BKA stump with aspiration suggestive of a hematoma. Has history of osteomyelitis. Neuro - Denies headaches. Cardiovascular - Denies chest pain, fatigue, and shortness of breath with exertion. Psych - Denies anxiety. Has depression. Respiratory - Denies chronic cough and shortness of breath. Patient is a smoker. Gastrointestinal - Denies nausea, vomiting, diarrhea, and constipation. Hematologic - Denies abnormal bruising and bleeding. Genitourinary - Denies hematuria and urinary frequency. PHYSICAL EXAMINATION General - Alert and Oriented HEENT - PERRL. EOMI. Throat is clear. Neck - Supple and nontender. No cervical adenopathy. Lungs - Clear to auscultation. Heart - Regular rate and rhythm. Abdomen - Soft and nondistended. Functioning colostomy. Extremities - FROM upper extremities and left lower extremity. Has a right BKA stump. Incisions are healed. On the anterior surface of the right BKA stump is an area of redness and tenderness over the scar. The area of redness measures 5 x 5 cm. Mild swelling seen. No purulent drainage noted. No fluctuance noted. Distance from the tibial tubercle to the stump is 12 cm. No inguinal adenopathy. Femoral pulses are palpable. No axillary adenopathy. Radial pulses are palpable. Neuro - CN II-XII grossly intact. Psych - Normal mood and affect. ASSESSMENT 1. Traumatic infected hematoma right BKA stump, etiology unknown. 2. Diabetes mellitus. 3. PVD. 4. Smoker. 5. History of necrotizing infection. 6. History of osteomyelitis. PLAN X-ray reviewed. No fracture was seen. No osteomyelitis noted. No gas seen. No foreign body seen. Culture result from ED 12/04/19 reviewed. It is negative thus far. Keflex and Bactrim was continued. Since the aspiration in the ED was bloody, we tried to resolve the small hematoma with JOSE D wrap compression. The pain and redness continued to worsen suggestive of a worsening infection, so it was recommended to the patient to be admitted to the hospital and IV antibiotics started. CT would be obtained to evaluate the extent of the hematoma. Will proceed with operative intervention with incision and drainage and evacuation of the hematoma would be necessary. If it extends down to the tibia, then a partial ostectomy for osteomyelitis would be done. Postop wound care will be with the [facility]. After discharge from the hospital, would followup at [facility]. With her history of vascular disease, she had noninvasive arterial doppler studies on 05/05/19. It showed no evidence of significant arterial occlusive disease in the right lower extremity. Patient is aware that her chronic pain before the hematoma could be exacerbated by her diabetes mellitus and her smoking. She states she is trying to quit. Sh states she gets HgbA1c checks from her PCP. Good control of her diabetes mellitus will certainly minimize any symptomatology from neuropathy that can occur in diabetics. She is already on maximal doses of Lyrica and sees Pain Management. Encouraged patient to stop smoking as it may have deleterious effects on wound healing. Patient was informed of the risks and complications of the procedure including alternatives to surgery. These were discussed with the patient personally. Patient voices understanding and wishes to proceed.
--- NOTE | 2019-12-07 10:56 | CT_ITS ---
STUDY: CT SCAN RIGHT LOWER EXTREMITY. REASON FOR EXAM: Female, 49 years old. INFECTION, HEMATOMA RADIATION DOSAGE (If Supplied By Facility): CTDIvol = ( 15.35 ) mGy, DLP = ( 499.60 ) mGycm. Individualized dose optimization techniques were used for this CT.? TECHNIQUE: Multiple axial tomographic images were obtained from the distal femur down to the level of the proximal tibia without intravenous contrast administration. The patient is status post below knee amputation. Coronal and sagittal reconstruction was obtained as well. COMPARISON: None. FINDINGS: Diffuse increased markings within the subcutaneous fat in keeping with the cellulitis. There is a 3.5 cm x 1.4 cm fluid collection overlying the proximal anterior tibia. Air is seen within this collection. The patient is status post below knee amputation. The underlying bone is unremarkable. CT/Extremity Lower without Contra IMPRESSION: Status post below knee amputation. Diffuse cellulitis. 3.5 cm x 1.4 cm fluid collection overlying the proximal anterior tibia. Air is seen within the. The underlying bony structures are unremarkable. Electronically Signed: Dextre Morton, at 12:51 EDT , Service support ,
[2019-12-07 11:13] LABS: Hematocrit 40.7 % (37-47); Hemoglobin 13.4 g/dL (12.0-15.0); Mean Corp Hgb Conc 32.9 g/dL (32-36); Mean Corpuscular Hgb 30.9 pg (27.0-32.0); Mean Platelet Vol. 9.9 fl (6.2-12.0); Platelet Count 257 K/mm3 (150-450); RBC Distribution Width CV 13.7 % (11.6-14.6); RBC Distribution Width SD 46.8 fl (35.1-43.9); Red Blood Count 4.33 M/mm3 (4.2-5.4); White Blood Count 6.7 K/mm3 (4.4-11.0)
[2019-12-07 11:24] LABS: Erythrocyte Sedimentation Rate 67 mm/hr (0-20)
--- NOTE | 2019-12-07 11:27 | PN_ITS ---
Subjective: Patient seen and examined. To undergo I&D right BKA stump due to traumatic infected hematoma. Denies fever, chills. - Physical Exam Vitals/I&O's: Vital Signs Temp Pulse Resp BP Pulse Ox 98.2 F 90 18 119/76 97 12/07/19 10:36 12/07/19 10:36 12/07/19 10:36 12/07/19 10:36 12/07/19 10:36 Oxygen Delivery Method Room Air Weight: 225 lb 12.054 oz Body Mass Index (BMI) 34.3 Finger Stick Blood Glucose 250 General: Alert, Oriented x3, Cooperative HEENT: Atraumatic, PERRLA, EOMI, Normocephalic Neck: Supple, No JVD, Negative Carotid Bruits Lungs: Clear to auscultation, Normal air movement Cardiovascular: Regular rate, Regular Rhythm, Normal S1, Normal S2, No murmurs Abdomen: Bowel Sounds Present, Soft, Non Tender, Non-Distended Extremities: No clubbing, No cyanosis, No edema, Capillary Refill Less than 3 Seconds Skin: No rashes, - - Right BKA with distal infected hematoma of the stump, yisel ssing in place. Musculoskeletal: No Tenderness to Palpation of Joints or Extremities Neurological: Cranial nerves II-XII grossly intact, Neuro grossly intact Psych/Mental Status: Normal Affect, Appropriate Laboratory Results 12/07/19 10:55: WBC 6.7, RBC 4.33, Hgb 13.4, Hct 40.7, MCV 94.0, MCH 30.9, MCHC 32.9, RDW Std Deviation 46.8 H, RDW Coeff of Mona 13.7, Plt Count 257, MPV 9.9, ESR 67 H 12/07/19 10:55: Sodium Pending, Potassium Pending, Chloride Pending, Carbon Dioxide Pending, Anion Gap Pending, BUN Pending, Creatinine Pending, Est GFR (MDRD) Af Amer Pending, Est GFR (MDRD) Non-Af Pending, BUN/Creatinine Ratio Pending, Glucose Pending, Calcium Pending, Total Bilirubin Pending, AST Pending, ALT Pending, Alkaline Phosphatase Pending, C-React Prot Ext Range Pending, Total Protein Pending, Albumin Pending, Prealbumin Pending 12/07/19 10:55: Hemoglobin A1c Pending Current Medications Atorvastatin Calcium (Lipitor) 40 mg PO QHS [facility] Baclofen (Lioresal) 20 mg PO TID [facility] Diazepam (Valium) 5 mg PO 4X/DAY PRN PRN PRN Reason: SPASMS Docusate Sodium (Colace) 100 mg PO BID [facility] Duloxetine HCl (Cymbalta) 60 mg PO BID [facility] Enoxaparin Sodium (Lovenox) 40 mg SC DAILY@0600 [facility] Hydromorphone HCl (Dilaudid Inj) 1 mg IV Q3H PRN PRN PRN Reason: Pain Score 6-10/10 Sodium Chloride () 250 mls @ 15 mls/hr IV .[id number] PRN PRN Reason: Saline Flush Sodium Chloride () 250 mls @ 15 mls/hr IV .[id number] PRN PRN Reason: Additional IVPB Infusion Lactated Ringer's () 1,000 mls @ 60 mls/hr IV .[id number] [facility] Piperacillin Sod/Tazobactam (Sod 3.375 gm/ Sodium Chloride) 50 mls @ 12.5 mls/hr IV Q8 [facility] Vancomycin IV Pharmacy to Dose (1 ea/ Sodium Chloride) 500 mls @ 250 mls/hr IV X1 PRN; Protocol PRN Reason: Rx to Dose Sodium Chloride () 500 mls @ 15 mls/hr IV PRN PRN PRN Reason: Blood Transfusion Sodium Chloride () 250 mls @ 15 mls/hr IV .[id number] PRN PRN Reason: Saline Flush Sodium Chloride () 250 mls @ 15 mls/hr IV .[id number] PRN PRN Reason: Additional IVPB Infusion Vancomycin HCl (Vancomycin) 1,000 mg in 200 mls @ 200 mls/hr IV PREOP ONE Stop: 12/07/19 11:54 Non-Formulary Medication (Dulaglutide) 1.5 mg subcut QWEEK [facility] Non-Formulary Medication (Pregabalin) 100 mg PO TID [facility] Nutritional Formula ([place] Flavor) 1 packet PO BIDCM [facility] Ondansetron HCl (Zofran) 4 mg IV Q6H PRN PRN PRN Reason: NAUSEA Oxycodone HCl (Oxyir) 10 mg PO Q4H PRN PRN PRN Reason: Pain Score 4-5/10 Pantoprazole Sodium (Protonix) 40 mg PO DAILY [facility] Promethazine HCl (Phenergan Tablet) 25 mg PO Q4H PRN PRN PRN Reason: NAUSEA/VOMITING Sodium Chloride () 10 - 40 ml IV UD PRN PRN Reason: Midline Flush Sodium Chloride (0.9% Nacl (Sterile) Posiflush) 10 - 40 ml IV UD PRN PRN Reason: Port access or dressing change Sodium Chloride () 10 - 40 ml IV UD PRN PRN Reason: SALINE FLUSH Sodium Chloride () 10 - 40 ml IV UD PRN PRN Reason: SALINE FLUSH Medical Necessity - Tobacco Use Smoking Status: Current every day smoker Assessment/Plan All Active Problems (Last Reviewed 12/07/19 @ 10:[address] 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 Right BKA stump infected hematoma-to undergo drainage and excisional debridement with possible partial ostectomy for osteomyelitis by Dr. Guadarrama. On IV vancomycin and IV Zosyn. Management per Dr. Guadarrama. 2. Hypertension-stable, does not appear to be on regimen. PRN hydralazine for systolic blood pressure greater than 160. 3. Hyperlipidemia-continue statin regimen. 4. Type 2 diabetes mellitus-hold oral regimen. Accu-Cheks with sliding scale insulin. Hemoglobin A1c 10.5%. 5. Anxiety/depression-continue home Cymbalta regimen. 6. Obesity-diet lifestyle modifications encouraged. 7. GERD-continue PPI. DVT prophylaxis-Lovenox subcu This patient was seen by BRANT Ratliff under the supervision of Dr. Fung.
[2019-12-07 11:38] LABS: Hemoglobin A1c 10.5 % (4.2-6.3)
[2019-12-07 11:44] LABS: ALB/GLOB Ratio 0.6 RATIO (0.9-2.4); AST(SGOT) 20 U/L (15-37); Alanine Aminotransfer ALT/SGPT 26 U/L (13-56); Alkaline Phosphatase 116 U/L (45-117); Anion Gap 6 (5-15); BUN 13 mg/dL (7-18); BUN/Creat Ratio 19.1 RATIO (10-20); Calcium,Total 8.6 mg/dL (8.5-10.1); Chloride 105 mmol/L (98-107); Creatinine, Serum 0.68 mg/dL (0.55-1.02); EST Glomerular Filtration Rate 98 mL/min (>60); Est Glom Filt Rate - Afr Amer 119 mL/min (>60); Estimated Creatinine Clearance 103.17 ml/min; Globulin 4.7 g/dL (2.2-4.2); Glucose 76 mg/dL (74-106); Protein, Total 7.7 g/dL (6.4-8.2); Sodium Level 138 mmol/L (136-145)
[2019-12-07] MEDS: HYDROmorphone 1 MG/ML Syringe IV ×3 (11:57→23:57)
[2019-12-07] MEDS: Lactated Ringers 1,000 ML 60 ML IV ×2 (11:58→17:17)
[2019-12-07 12:20] LABS: Bedside Glucose 61 mg/dL (70-110)
[2019-12-07] MEDS: 0.9% Saline Lock 10 ML Syringe IV ×4 (12:34→23:57)
[2019-12-07] MEDS: Vancomycin IV 1,000 MG/200 ML BAG 200 MG IV (12:34)
[2019-12-07] MEDS: Dextrose 50%-Water 25 GM/50 ML DISP.SYRIN IV (12:34)
[2019-12-07] MEDS: Ondansetron 4 MG/2 ML Vial IV (12:45)
[2019-12-07 13:06] LABS: Bedside Glucose 123 mg/dL (70-110)
--- NOTE | 2019-12-07 14:00 | THRO_PTH ---
PATIENT: BERTRAM GARY LOC: [facility] U#:[id number] AGE/SX: 49/F ROOM: [facility] RE12/07/[address]: Dr. Unruly Sanchez MD : [id number] BED: 1 DIS: 12/09/2019 SPEC #: [id number] RECD: 12/09/19 07:40 STATUS: ZENA REQ #: [id number] LANIE: 12/07/19 14:[address]: Grzegorz Guadarrama DEPT: SURGICAL PATHOLOGY RECD BY: William Monroy ENTERED: 12/09/19 11:25 SP TYPE: THROMBUS OTHR DR: MD Nilesh Cabrera Dr., MD Dr. Efewongbe Oleghe, MD Dr. James A Slaby, MD Dr. Mark Tereletsky, DO Dr. Nicholas F Kotsonis, MD Tissues: A - BLOOD CLOT, NOS B - Tibia, NOS Procedures: Decalcification bone/plaque Surgery Specimen Level IV Comments: @ Ordering doctor for DEC edited from to DR.JSLABY Ocampo by KANDICE at 12/09/19 1135 @ Ordering doctor for SUIII edited from to DR.JSLABY Damaris WOODSON at 12/09/19 1135 @ Submitting doctor edited from to DR.JSLABY Damaris WOODSON at 12/09/19 1135 HEADER OPERATION: Incision and drainage hematoma, BKA stump PRE-OP DIAGNOSIS: Infected hematoma right BKA stump TISSUE SUBMITTED: A - Debrided infected hematoma tissue right BKA, B - Debrided right tibial bone MICROSCOPIC DIAGNOSIS A. Hematoma of right below knee amputation stump, removal: Skin and underlying soft tissue containing ulceration, acute and chronic inflammation and granulation. See comment. B. Right tibial bone, biopsy: Reparative and reactive process. No evidence of osteomyelitis. AM:nain 12/13/19 COMMENT A. The deep portion of the biopsy is consistent with reactive process associated with hematoma. MICROSCOPIC DESCRIPTION Slides are reviewed. GROSS DESCRIPTION A - Received in fixative is one container labeled with the patient's name and designated debrided infected hematoma tissue. The specimen consists of an irregular fragment of skin with attached soft tissue measuring 4 x 2 cm and a depth of excision measuring 0.8 cm. The cutaneous surface displays an irregular ulcerated area measuring 2 cm in greatest dimension. The specimen is inked and serially sectioned. No mass lesions are identified. [employer] Teacher sections are submitted in two cassettes. B - Received in fixative is one container labeled with the patient's name and designated debrided tibial bone. The specimen consists of irregular fragments of dark jarrell bony tissue measuring in aggregate 1.5 x 1 x 0.2 cm. The specimen is totally submitted in one cassette after decalcification. / AM:nain 12/09/19 TC:5 CPT: 99995 x2, 44052
--- NOTE | 2019-12-07 14:14 | PCM.RX.CS ---
Consult Pharmacy has been consulted to manage selected antiobiotic: Vancomycin Type of Consult: New start Suspected Infection: Other Prior Doses of Antibiotics Received/Current Regimen: VANCOMYCIN 1000MG IV X1 PREOP 12/07/19 @1234 Labs: Sodium 138 mmol/L (136-145) 12/07/19 10:55 Potassium 4.0 mmol/L (3.5-5.1) 12/07/19 10:55 Chloride 105 mmol/L (98-107) 12/07/19 10:55 Carbon Dioxide 27.0 mmol/L (21.0-32.0) 12/07/19 10:55 Anion Gap 6 (5-15) 12/07/19 10:55 BUN 13 mg/dL (7-18) 12/07/19 10:55 Creatinine 0.68 mg/dL (0.55-1.02) 12/07/19 10:55 Est GFR (MDRD) Af Amer 119 mL/min (>60) 12/07/19 10:55 Est GFR (MDRD) Non-Af 98 mL/min (>60) 12/07/19 10:55 BUN/Creatinine Ratio 19.1 RATIO (10-20) 12/07/19 10:55 Glucose 76 mg/dL (74-106) 12/07/19 10:55 Weight used for dosin kg Estimated Creatinine Clearance: 103 ML/MIN Goal Trough: 10-15 mcg/mL Pharmacy Plan for Drug Dosing: Pharmacy consulted to dose vancomycin post-op. The patient did receive a Pre-op dose of 1000mg IV x1 prior to procedure. Per pharmacy dosing policy/what was ordered, the standard initial dose was to be 1500mg. Rather than giving a supplemental dose, will start scheduled dosing 8 hours from initial dose. Will get trough prior to the 4th dose of scheduled regimen, as the Pre-op dose was < 15mg/kg. Plan/Recommendations 1. Vancomycin 1750mg IV Q12hr to start 12/07/19 @2000 (8 hours from Pre-op dose) 2. Trough prior to 4th dose of scheduled regimen (see rationale above) 12/09/19 @0730 3. Pharmacy Service will continue to monitor and adjust dosing as required.
[2019-12-07 14:26] LABS: M R Staph aureus DNA By PCR Negative (Negative); Probe Check PASS; Staph aureus DNA By PCR POSITIVE (Negative)
--- NOTE | 2019-12-07 16:09 | PCM.OPRPT ---
Report of Operation Date of Procedure: 12/07/19 Pre-Operative Diagnosis: 1. Traumatic infected hematoma right BKA stump. 2. Diabetes mellitus. 3. PVD. 4. Smoker. 5. History of necrotizing infection. 6. History of osteomyelitis. Post-Operative Diagnosis: Same. Surgery/Procedure Performed:: 1. Surgical preparation right BKA stump with incision and drainage and excisional debridement infected hematoma (19.25 cm2). 2. Partial ostectomy tibia for osteomyelitis. Description of Surgical Findings:: 49 year old woman presents with pain in her right BKA stump when she is wearing her prosthesis. She states she underwent the right BKA about 4 years ago. She had surgery on 12/28/18 for surgical preparation right BKA stump with incision and drainage and excisional debridement chronic infected seroma anterior aspect of stump and partial ostectomy tibia for osteomyelitis and complex secondary wound closure revision reconstruction. She denies any fever. She denies any trauma besides normal wear and tear of the stump within the prosthesis. She was seen in the office last week and a previous painful lump (probable seroma) had resolved after recent revision of her prosthesis. She started noticing increasing pain and redness on the anterior aspect of her amputation stump over the weekend and went to the ED. X-ray showed no fracture and no evidence of osteomyelitis. There was no evidence of soft tissue gas or radiopaque foreign body. Aspiration was done in the ED and blood was obtained suggestive of a hematoma. A culture was obtained and is negative thus far. Compression therapy with an JOSE D wrap was started. She was started on Keflex and Bactrim. Today she noted worsening symptomatology and has failed outpatient therapy. She is being admitted today to start IV antibiotics and proceed with operative intervention of incision and drainage and excisional debridement infected hematoma with possible partial ostectomy for osteomyelitis. Patient was informed of the risks and complications of the procedure including alternatives to surgery. These were discussed with the patient personally. Patient voices understanding and wishes to proceed. Size of defect right BKA stump - 5.5 x 3.5 x 1.5 cm. fiber machine tender: None Type of Anesthesia:: General Specimen's removed: 1. Infected hematoma right BKA stump soft tissue to Pathology and Microbiology. 2. Infected hematoma right BKA stump tibial bone to Pathology and Microbiology. Drains: None. Estimated Blood Loss (mL): 25 ml. Description of Procedure: Patient was taken to OR in supine position and was placed under general anesthesia. The right BKA stump was prepped and draped in the usual fashion. SCD's were placed for DVT prophylaxis. Perioperative antibiotics were given intravenously. Using xylocaine with epinephrine, the infected hematoma right BKA stump was infiltrated. After waiting 5 minutes for the anesthetic to take effect, I made a vertical incision over the infected area into the subcutaneous tissue. Hematoma was expressed along with some pus. There was undermining in all directions. Some fat necrosis was present as well. This tissue was excised and debrided The infection extended down to the tibial bone. A partial ostectomy of the tibia was done to evaluate for osteomyelitis. I took bone specimens from several different areas. A rasp was used to smooth out the bony edges. Half the soft tissue and half the bone was sent to Pathology for analysis to rule out carcinoma and to evaluate for osteomyelitis. Half the soft tissue and half the bone was sent to Microbiology for a culture. A positive culture will necessitate antibiotic therapy. The wound was copiously irrigated with saline. Hemostasis was obtained with electrocautery. The size of the defect after incision and drainage and excisional debridement of this infected hematoma was 5.5 x 3.5 x 1.5 cm or 19.25 cm2. The wound was dressed with Mepitel nonadherent dressing followed by Kerlix gauze and Betadine followed by dry Kerlix gauze and a compression JOSE D wrap. Patient tolerated the procedure well and was sent to PACU in satisfactory condition. Patient will be sent upstairs for continued postop care. The VAC will be applied tomorrow. After discharge will followup at the [facility]. Grafts/Implants Used: None. - Complications None. - Admit VTE Documentation VTE Present on Admission: No VTE Mechan Device Prophylaxis: SCD's VTE Pharm Prophylaxis ordered?: Yes Surgery Charges CPT - 86811 ICD-10 - T87.89, T87.43, E11.9, I73.9, Z87.39, F17.200 70786 T87.89, T87.43, E11.9, I73.9, Z87.39, F17.200
[2019-12-07 16:26] LABS: Bedside Glucose 125 mg/dL (70-110)
[2019-12-07] MEDS: Baclofen 10 MG Tablet 20 MG PO ×2 (18:12→22:43)
[2019-12-07 18:46] LABS: Bedside Glucose 172 mg/dL (70-110)
[2019-12-07] MEDS: DULoxetine Hcl 30 MG Capsule 60 MG PO (22:43)
[2019-12-07] MEDS: Atorvastatin Calcium 40 MG Tablet PO (22:43)
[2019-12-07] MEDS: Docusate Sodium 100 MG Capsule PO (22:43)
[2019-12-07] MEDS: Pregabalin 50 MG Capsule 200 MG PO (22:51)
[2019-12-07] MEDS: oxyCODONE 5 MG Tablet 10 MG PO (22:52)
[2019-12-08 00:25] VITALS: BP 123/68; PULSE 84; RESP 16; TEMP 37.1; O2SAT 93
[2019-12-08 01:31] LABS: Bedside Glucose 346 mg/dL (70-110)
[2019-12-08 05:09] VITALS: BP 117/64; PULSE 75; RESP 16; TEMP 37.1; O2SAT 98
[2019-12-08 05:21] LABS: Hematocrit 36.5 % (37-47); Hemoglobin 11.8 g/dL (12.0-15.0); Mean Corp Hgb Conc 32.3 g/dL (32-36); Mean Corpuscular Volume 92.9 fL (81-99); Platelet Count 255 K/mm3 (150-450); RBC Distribution Width CV 13.6 % (11.6-14.6); RBC Distribution Width SD 46.4 fl (35.1-43.9); Red Blood Count 3.93 M/mm3 (4.2-5.4); White Blood Count 7.1 K/mm3 (4.4-11.0)
[2019-12-08 05:52] LABS: Anion Gap 6 (5-15); BUN 17 mg/dL (7-18); BUN/Creat Ratio 25.7 RATIO (10-20); Calcium,Total 8.1 mg/dL (8.5-10.1); Chloride 104 mmol/L (98-107); Creatinine, Serum 0.66 mg/dL (0.55-1.02); EST Glomerular Filtration Rate 102 mL/min (>60); Est Glom Filt Rate - Afr Amer 123 mL/min (>60); Glucose 283 mg/dL (74-106); Potassium 4.2 mmol/L (3.5-5.1); Sodium Level 135 mmol/L (136-145)
[2019-12-08] MEDS: Baclofen 10 MG Tablet 20 MG PO ×3 (06:30→21:20)
[2019-12-08] MEDS: Pregabalin 50 MG Capsule 200 MG PO ×3 (06:31→21:33)
[2019-12-08] MEDS: Enoxaparin 40 MG/0.4 ML Syringe SC (06:32)
[2019-12-08] MEDS: 0.9% Saline Lock 10 ML Syringe IV ×5 (06:43→22:49)
[2019-12-08] MEDS: HYDROmorphone 1 MG/ML Syringe IV ×5 (06:43→21:48)
[2019-12-08 06:45] LABS: Bedside Glucose 296 mg/dL (70-110)
[2019-12-08] MEDS: Docusate Sodium 100 MG Capsule PO ×2 (09:17→21:20)
[2019-12-08] MEDS: DULoxetine Hcl 30 MG Capsule 60 MG PO ×2 (09:17→21:20)
[2019-12-08] MEDS: Pantoprazole Sodium 40 MG Tablet PO (09:17)
--- NOTE | 2019-12-08 10:02 | NURSING ---
wound photo: right stump
--- NOTE | 2019-12-08 10:38 | PCM.PROGNOTE ---
<Stacy West - Last Filed: 12/08/19 10:46> Subjective: Patient seen and examined. Complains of right distal stump pain. She denies fever, chills. Denies other current complaints. - Physical Exam Vitals/I&O's: Vital Signs Temp Pulse Resp BP Pulse Ox 98.7 F 75 16 117/64 98 12/08/19 05:09 12/08/19 05:09 12/08/19 05:09 12/08/19 05:09 12/08/19 05:09 Oxygen Flow Rate (L/min) 2 Oxygen Delivery Method Nasal Cannula Weight: 225 lb 12.054 oz Body Mass Index (BMI) 34.3 Finger Stick Blood Glucose 125 Intake and Output for Last 24 Hours 12/06/19 12/07/19 12/08/19 23:59 23:59 23:59 Intake Total 1213.5 / 2453.5 2400 / 2400 Output Total 1999 / 1999 Balance 1213.5 / 453.5 400 / 400 General: Alert, Oriented x3, Cooperative HEENT: Atraumatic, PERRLA, EOMI, Normocephalic Neck: Supple, No JVD, Negative Carotid Bruits Lungs: Clear to auscultation, Normal air movement Cardiovascular: Regular rate, Regular Rhythm, Normal S1, Normal S2, No murmurs Abdomen: Bowel Sounds Present, Soft, Non Tender, Non-Distended Extremities: No clubbing, No cyanosis, No edema, Capillary Refill Less than 3 Seconds Skin: - - Right BKA, distal wound with wound VAC in place. Musculoskeletal: No Tenderness to Palpation of Joints or Extremities Neurological: Cranial nerves II-XII grossly intact, Neuro grossly intact Psych/Mental Status: Normal Affect, Appropriate Microbiology Past 72 Hours 12/07/19 16:00 Incision/Surgical Site Gram Stain - Final 12/07/19 16:00 Incision/Surgical Site Gram Stain - Final Laboratory Results 12/07/19 10:55: WBC 6.7, RBC 4.33, Hgb 13.4, Hct 40.7, MCV 94.0, MCH 30.9, MCHC 32.9, RDW Std Deviation 46.8 H, RDW Coeff of Mona 13.7, Plt Count 257, MPV 9.9, ESR 67 H 12/07/19 10:55: Sodium 138, Potassium 4.0, Chloride 105, Carbon Dioxide 27.0, Anion Gap 6, BUN 13, Creatinine 0.68, Estim Creat Clear Calc 103.17, Est GFR (MDRD) Af Amer 119, Est GFR (MDRD) Non-Af 98, BUN/Creatinine Ratio 19.1, Glucose 76, Calcium 8.6, Total Bilirubin 0.30, AST 20, ALT 26, Alkaline Phosphatase 116, C-React Prot Ext Range 79.40 H, Total Protein 7.7, Albumin 3.0 L, Globulin 4.7 H, Albumin/Globulin Ratio 0.6 L, Prealbumin 14.0 L 12/07/19 10:55: Hemoglobin A1c 10.5 H 12/07/19 11:49: POC Glucose 61 L 12/07/19 12:04: S.aureus Protein A PCR POSITIVE H, MRSA (PCR) Negative 12/07/19 12:59: POC Glucose 123 H 12/07/19 16:21: POC Glucose 125 H 12/07/19 18:17: POC Glucose 172 H 12/07/19 22:42: POC Glucose 346 H 12/08/19 05:10: WBC 7.1, RBC 3.93 L, Hgb 11.8 L, Hct 36.5 L, MCV 92.9, MCH 30.0, MCHC 32.3, RDW Std Deviation 46.4 H, RDW Coeff of Mona 13.6, Plt Count 255, MPV 10.0 12/08/19 05:10: Sodium 135 L, Potassium 4.2, Chloride 104, Carbon Dioxide 25.0, Anion Gap 6, BUN 17, Creatinine 0.66, Estim Creat Clear Calc 106.30, Est GFR (MDRD) Af Amer 123, Est GFR (MDRD) Non-Af 102, BUN/Creatinine Ratio 25.7 H, Glucose 283 H, Calcium 8.1 L 12/08/19 06:36: POC Glucose 296 H Current Medications Atorvastatin Calcium (Lipitor) 40 mg PO QHS [facility] Last Admin: 12/07/19 22:43 Dose: 40 mg Documented by: Baclofen (Lioresal) 20 mg PO TID [facility] Last Admin: 12/08/19 06:30 Dose: 20 mg Documented by: Dextrose (D50w Syringe) 0 gm IV X1 PRN; Protocol PRN Reason: Hypoglycemia Last Admin: 12/07/19 12:34 Dose: 12.5 gm Documented by: Diazepam (Valium) 5 mg PO 4X/DAY PRN PRN PRN Reason: SPASMS Docusate Sodium (Colace) 100 mg PO BID [facility] Last Admin: 12/08/19 09:17 Dose: 100 mg Documented by: Duloxetine HCl (Cymbalta) 60 mg PO BID [facility] Last Admin: 12/08/19 09:17 Dose: 60 mg Documented by: Enoxaparin Sodium (Lovenox) 40 mg SC DAILY@0600 [facility] Last Admin: 12/08/19 06:32 Dose: 40 mg Documented by: Glucagon () 1 mg IM .X1 PRN PRN Reason: Hypoglycemia Hydralazine HCl (Apresoline Iv) 5 mg IV Q4H PRN PRN PRN Reason: BLOOD PRESSURE Hydromorphone HCl (Dilaudid Inj) 1 mg IV Q3H PRN PRN PRN Reason: Pain Score 6-10/10 Last Admin: 12/08/19 06:43 Dose: 1 mg Documented by: Sodium Chloride () 250 mls @ 15 mls/hr IV .[id number] PRN PRN Reason: Saline Flush Sodium Chloride () 250 mls @ 15 mls/hr IV .[id number] PRN PRN Reason: Additional IVPB Infusion Lactated Ringer's () 1,000 mls @ 60 mls/hr IV .[id number] [facility] Last Infusion: 12/08/19 06:47 Dose: 0 mls/hr Documented by: Piperacillin Sod/Tazobactam (Sod 3.375 gm/ Sodium Chloride) 50 mls @ 12.5 mls/hr IV Q8 [facility] Last Admin: 12/08/19 06:32 Dose: 12.5 mls/hr Documented by: Vancomycin IV Pharmacy to Dose (1 ea/ Sodium Chloride) 500 mls @ 250 mls/hr IV PRN PRN; Protocol PRN Reason: Rx to Dose Sodium Chloride () 500 mls @ 15 mls/hr IV PRN PRN PRN Reason: Blood Transfusion Last Infusion: 12/07/19 20:51 Dose: 0 mls/hr Documented by: Sodium Chloride () 250 mls @ 15 mls/hr IV .[id number] PRN PRN Reason: Saline Flush Sodium Chloride () 250 mls @ 15 mls/hr IV .[id number] PRN PRN Reason: Additional IVPB Infusion Vancomycin HCl 1,750 mg/ (Sodium Chloride) 535 mls @ 250 mls/hr IV Q12H [facility] Last Infusion: 12/07/19 23:31 Dose: Infused Documented by: Nutritional Formula (James - [place] Flavor) 1 packet PO BIDCM [facility] Last Admin: 12/08/19 09:17 Dose: 1 packet Documented by: Ondansetron HCl (Zofran) 4 mg IV Q6H PRN PRN PRN Reason: NAUSEA Last Admin: 12/07/19 12:45 Dose: 4 mg Documented by: Oxycodone HCl (Oxyir) 10 mg PO Q4H PRN PRN PRN Reason: Pain Score 4-5/10 Last Admin: 12/07/19 22:52 Dose: 10 mg Documented by: Pantoprazole Sodium (Protonix) 40 mg PO DAILY [facility] Last Admin: 12/08/19 09:17 Dose: 40 mg Documented by: Pregabalin (Lyrica) 200 mg PO TID [facility] Last Admin: 12/08/19 06:31 Dose: 200 mg Documented by: Promethazine HCl (Phenergan Tablet) 25 mg PO Q4H PRN PRN PRN Reason: NAUSEA/VOMITING Sodium Chloride () 10 - 40 ml IV UD PRN PRN Reason: Midline Flush Last Admin: 12/08/19 06:43 Dose: 10 ml Documented by: Sodium Chloride (0.9% Nacl (Sterile) Posiflush) 10 - 40 ml IV UD PRN PRN Reason: Port access or dressing change Sodium Chloride () 10 - 40 ml IV UD PRN PRN Reason: SALINE FLUSH Sodium Chloride () 10 - 40 ml IV UD PRN PRN Reason: SALINE FLUSH Medical Necessity - Tobacco Use Smoking Status: Current every day smoker Assessment/Plan All Active Problems (Last Reviewed 12/07/19 @ 10:[address] 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 Right BKA stump infected hematoma-s/p drainage and excisional debridement Dr. Guadarrama 12/07/19. On IV vancomycin and IV Zosyn. Wound culture pending. Management per Dr. Guadarrama. 2. Hypertension-stable, does not appear to be on regimen. PRN hydralazine for systolic blood pressure greater than 160. 3. Hyperlipidemia-continue statin regimen. 4. Type 2 diabetes mellitus-hold oral regimen. Accu-Cheks with sliding scale insulin. Hemoglobin A1c 10.5%. Initiate Lantus 15 units twice daily and sliding scale insulin. Increased 5. Anxiety/depression-continue home Cymbalta regimen. 6. Obesity-diet lifestyle modifications encouraged. 7. GERD-continue PPI. DVT prophylaxis-Lovenox subcu This patient was seen by BRANT Ratliff under the supervision of Dr. Sanchez. <Unruly Sanchez F - Last Filed: 12/08/19 11:09> - Physical Exam Vitals/I&O's: Vital Signs Temp Pulse Resp BP Pulse Ox 98.7 F 84 18 114/58 L 95 12/08/19 10:45 12/08/19 10:45 12/08/19 10:45 12/08/19 10:45 12/08/19 10:45 Oxygen Flow Rate (L/min) 2 Oxygen Delivery Method Room Air Weight: 225 lb 12.054 oz Body Mass Index (BMI) 34.3 Finger Stick Blood Glucose 125 Intake and Output for Last 24 Hours 12/06/19 12/07/19 12/08/19 23:59 23:59 23:59 Intake Total 1213.5 / 2453.5 2450 / 2450 Output Total 1999 Balance 1213.5 / 453.5 450 / 450 Microbiology Past 72 Hours 12/07/19 16:00 Incision/Surgical Site Gram Stain - Final 12/07/19 16:00 Incision/Surgical Site Wound Culture - Preliminary No growth-Final to follow 12/07/19 16:00 Incision/Surgical Site Gram Stain - Final 12/07/19 16:00 Incision/Surgical Site Wound Culture - Preliminary Gram positive organism Laboratory Results 12/07/19 10:55: WBC 6.7, RBC 4.33, Hgb 13.4, Hct 40.7, MCV 94.0, MCH 30.9, MCHC 32.9, RDW Std Deviation 46.8 H, RDW Coeff of Mona 13.7, Plt Count 257, MPV 9.9, ESR 67 H 12/07/19 10:55: Sodium 138, Potassium 4.0, Chloride 105, Carbon Dioxide 27.0, Anion Gap 6, BUN 13, Creatinine 0.68, Estim Creat Clear Calc 103.17, Est GFR (MDRD) Af Amer 119, Est GFR (MDRD) Non-Af 98, BUN/Creatinine Ratio 19.1, Glucose 76, Calcium 8.6, Total Bilirubin 0.30, AST 20, ALT 26, Alkaline Phosphatase 116, C-React Prot Ext Range 79.40 H, Total Protein 7.7, Albumin 3.0 L, Globulin 4.7 H, Albumin/Globulin Ratio 0.6 L, Prealbumin 14.0 L 12/07/19 10:55: Hemoglobin A1c 10.5 H 12/07/19 11:49: POC Glucose 61 L 12/07/19 12:04: S.aureus Protein A PCR POSITIVE H, MRSA (PCR) Negative 12/07/19 12:59: POC Glucose 123 H 12/07/19 16:21: POC Glucose 125 H 12/07/19 18:17: POC Glucose 172 H 12/07/19 22:42: POC Glucose 346 H 12/08/19 05:10: WBC 7.1, RBC 3.93 L, Hgb 11.8 L, Hct 36.5 L, MCV 92.9, MCH 30.0, MCHC 32.3, RDW Std Deviation 46.4 H, RDW Coeff of Mona 13.6, Plt Count 255, MPV 10.0 12/08/19 05:10: Sodium 135 L, Potassium 4.2, Chloride 104, Carbon Dioxide 25.0, Anion Gap 6, BUN 17, Creatinine 0.66, Estim Creat Clear Calc 106.30, Est GFR (MDRD) Af Amer 123, Est GFR (MDRD) Non-Af 102, BUN/Creatinine Ratio 25.7 H, Glucose 283 H, Calcium 8.1 L 12/08/19 06:36: POC Glucose 296 H Current Medications Atorvastatin Calcium (Lipitor) 40 mg PO QHS [facility] Last Admin: 12/07/19 22:43 Dose: 40 mg Documented by: Baclofen (Lioresal) 20 mg PO TID [facility] Last Admin: 12/08/19 06:30 Dose: 20 mg Documented by: Dextrose (D50w Syringe) 0 gm IV X1 PRN; Protocol PRN Reason: Hypoglycemia Last Admin: 12/07/19 12:34 Dose: 12.5 gm Documented by: Diazepam (Valium) 5 mg PO 4X/DAY PRN PRN PRN Reason: SPASMS Docusate Sodium (Colace) 100 mg PO BID [facility] Last Admin: 12/08/19 09:17 Dose: 100 mg Documented by: Duloxetine HCl (Cymbalta) 60 mg PO BID [facility] Last Admin: 12/08/19 09:17 Dose: 60 mg Documented by: Enoxaparin Sodium (Lovenox) 40 mg SC DAILY@0600 [facility] Last Admin: 12/08/19 06:32 Dose: 40 mg Documented by: Glucagon () 1 mg IM .X1 PRN PRN Reason: Hypoglycemia Hydralazine HCl (Apresoline Iv) 5 mg IV Q4H PRN PRN PRN Reason: BLOOD PRESSURE Hydromorphone HCl (Dilaudid Inj) 1 mg IV Q3H PRN PRN PRN Reason: Pain Score 6-10/10 Last Admin: 12/08/19 10:48 Dose: 1 mg Documented by: Sodium Chloride () 250 mls @ 15 mls/hr IV .[id number] PRN PRN Reason: Saline Flush Sodium Chloride () 250 mls @ 15 mls/hr IV .[id number] PRN PRN Reason: Additional IVPB Infusion Lactated Ringer's () 1,000 mls @ 60 mls/hr IV .[id number] [facility] Last Infusion: 12/08/19 06:47 Dose: 0 mls/hr Documented by: Piperacillin Sod/Tazobactam (Sod 3.375 gm/ Sodium Chloride) 50 mls @ 12.5 mls/hr IV Q8 [facility] Last Infusion: 12/08/19 10:39 Dose: Infused Documented by: Vancomycin IV Pharmacy to Dose (1 ea/ Sodium Chloride) 500 mls @ 250 mls/hr IV PRN PRN; Protocol PRN Reason: Rx to Dose Sodium Chloride () 500 mls @ 15 mls/hr IV PRN PRN PRN Reason: Blood Transfusion Last Infusion: 12/07/19 20:51 Dose: 0 mls/hr Documented by: Sodium Chloride () 250 mls @ 15 mls/hr IV .[id number] PRN PRN Reason: Saline Flush Sodium Chloride () 250 mls @ 15 mls/hr IV .[id number] PRN PRN Reason: Additional IVPB Infusion Vancomycin HCl 1,750 mg/ (Sodium Chloride) 535 mls @ 250 mls/hr IV Q12H [facility] Last Infusion: 12/07/19 23:31 Dose: Infused Documented by: Insulin Glargine (Lantus (Bk)) 15 units SC BID [facility] Insulin Human Lispro (Humalog Kwikpen ([facility])) 0 unit SC ACHS [facility]; Protocol [facility]al [facility] - [place] Flavor[facility] Last Admin: 12/08/19 09:17 Dose: 1 packet Documented by: Ondansetron HCl (Zofran) 4 mg IV Q6H PRN PRN PRN Reason: NAUSEA Last Admin: 12/07/19 12:45 Dose: 4 mg Documented by: Oxycodone HCl (Oxyir) 10 mg PO Q4H PRN PRN PRN Reason: Pain Score 4-5/10 Last Admin: 12/07/19 22:52 Dose: 10 mg Documented by: Pantoprazole Sodium (Protonix) 40 mg PO DAILY [facility] Last Admin: 12/08/19 09:17 Dose: 40 mg Documented by: Pregabalin (Lyrica) 200 mg PO TID [facility] Last Admin: 12/08/19 06:31 Dose: 200 mg Documented by: Promethazine HCl (Phenergan Tablet) 25 mg PO Q4H PRN PRN PRN Reason: NAUSEA/VOMITING Sodium Chloride () 10 - 40 ml IV UD PRN PRN Reason: Midline Flush Last Admin: 12/08/19 10:48 Dose: 10 ml Documented by: Sodium Chloride (0.9% Nacl (Sterile) Posiflush) 10 - 40 ml IV UD PRN PRN Reason: Port access or dressing change Sodium Chloride () 10 - 40 ml IV UD PRN PRN Reason: SALINE FLUSH Sodium Chloride () 10 - 40 ml IV UD PRN PRN Reason: SALINE FLUSH Addendum: Dr. Sanchez I personally examined the patient and reviewed the chart. I agree with the above. 49-year-old female with peripheral vascular disease, hyperlipidemia, diabetes presents with pain on her right BKA stump. She had this done around 4 years ago, she presents now with a chronically infected seroma. This was debrided by surgery and a wound VAC was placed today. She is currently on vancomycin and Zosyn pending culture data. Her previous cultures all grew MSSA therefore could likely de-escalate to penicillin or cephalosporin on discharge. Otherwise her medical issues are stable at the moment, will continue to monitor. Inpatient E&M: [id number] Subs Hosp L2
[2019-12-08 10:45] VITALS: BP 114/58; PULSE 84; RESP 18; TEMP 37.1; O2SAT 95
--- NOTE | 2019-12-08 11:15 | CASEMGMT ---
ADIN HALEY called patient in room for initial transition planning/care coordination assessment. ADIN HALEY introduced self and role at [facility]. Patient alert and oriented. Patient willing to participate in assessment and is able to answer all questions appropriately. Care providers, pharmacy, and demographics verified. Patient wishes to discharge home, with possible HHC for wound care and possible IV ATBs. Patient states she has no further needs or concerns at this time. CM to follow for discharge planning needs that may arise. PCP: Jennifer Specialists: Thierry, plastic surgeon; , endocrinology but has not seen yet. Preferred Pharmacy: [facility] Insurance: [employer] Prescription Benefit: yes Living Will/HPOA: none LNOK: daughter 16yo, Mother Living Arrangements: Patient lives with daughter in down stairs apartment with 6 steps to enter the home with railing. Patient states she is independent at home. Transportation: self/mother DME/HHC: Patient states she has shower chair, BSC, cane, walker, wheelchair, grab bars, hand held shower, at home. [facility] and would like them again at discharge. ADIN HALEY discussed potential for IV ATBs at discharge and provided list of infusion companies. Patient would like [facility] for IV ATBs if needed. Patient states that herself, daughter, and mother are teachable. Disposition Plan: Patient to discharge home with HHC, family support, and follow-up plans in place. Will monitor for need for IV ATBs at discharge. Carolyn HEATH, RN, CM
[2019-12-08] MEDS: Insulin Lispro 100 UNIT/ML INSULN.PEN SC ×3 (11:28→21:25)
[2019-12-08 12:06] LABS: Bedside Glucose 429 mg/dL (70-110)
--- NOTE | 2019-12-08 12:38 | NURSING ---
Home VAC approved. unsure if patient will need home antibiotics, so patient is not sure she will be going home today. pt alright with waiting until tomorrow.
[2019-12-08 15:50] VITALS: BP 111/54; PULSE 79; RESP 18; TEMP 37.1; O2SAT 93
[2019-12-08] MEDS: oxyCODONE 5 MG Tablet 10 MG PO ×2 (16:06→22:49)
[2019-12-08 16:21] LABS: Bedside Glucose 385 mg/dL (70-110)
--- NOTE | 2019-12-08 16:36 | PCM.PN.SRG ---
Subjective: Postop #1 Patient has some wound pain. VAC applied today. - Physical Exam Vitals/I&O's: Vital Signs Temp Pulse Resp BP Pulse Ox 98.7 F 79 18 111/54 L 93 12/08/19 15:50 12/08/19 15:50 12/08/19 15:50 12/08/19 15:50 12/08/19 15:50 Oxygen Flow Rate (L/min) 2 Oxygen Delivery Method Room Air Weight: 225 lb 12.054 oz Body Mass Index (BMI) 34.3 Finger Stick Blood Glucose 125 Intake and Output for Last 24 Hours 12/06/19 12/07/19 12/08/19 23:59 23:59 23:59 Intake Total 1213.5 / 2453.5 3465 / 3465 Output Total 3500 / 3500 Balance 1213.5 / 453.5 -35 / -35 General: Alert, Oriented x3 HEENT: PERRLA, EOMI Oral: Moist Mucosa Neck: Supple Abdomen: Soft, Non-Distended Skin: Ulcer/ Wound - right BKA stump stable. No active bleeding noted VAC applied. Neurological: Cranial nerves II-XII grossly intact Psych/Mental Status: Normal Affect, Appropriate Microbiology Past 72 Hours 12/07/19 16:00 Incision/Surgical Site Gram Stain - Final 12/07/19 16:00 Incision/Surgical Site Wound Culture - Preliminary No growth-Final to follow 12/07/19 16:00 Incision/Surgical Site Gram Stain - Final 12/07/19 16:00 Incision/Surgical Site Wound Culture - Preliminary Gram positive organism Laboratory Results 12/07/19 18:17: POC Glucose 172 H 12/07/19 22:42: POC Glucose 346 H 12/08/19 05:10: WBC 7.1, RBC 3.93 L, Hgb 11.8 L, Hct 36.5 L, MCV 92.9, MCH 30.0, MCHC 32.3, RDW Std Deviation 46.4 H, RDW Coeff of Mona 13.6, Plt Count 255, MPV 10.0 12/08/19 05:10: Sodium 135 L, Potassium 4.2, Chloride 104, Carbon Dioxide 25.0, Anion Gap 6, BUN 17, Creatinine 0.66, Estim Creat Clear Calc 106.30, Est GFR (MDRD) Af Amer 123, Est GFR (MDRD) Non-Af 102, BUN/Creatinine Ratio 25.7 H, Glucose 283 H, Calcium 8.1 L 12/08/19 06:36: POC Glucose 296 H 12/08/19 11:19: POC Glucose 429 H 12/08/19 16:14: POC Glucose 385 H Prealbumin - 14.0 HgbA1c - 10.5 Current Medications Atorvastatin Calcium (Lipitor) 40 mg PO QHS [facility] Last Admin: 12/07/19 22:43 Dose: 40 mg Documented by: Baclofen (Lioresal) 20 mg PO TID [facility] Last Admin: 12/08/19 14:18 Dose: 20 mg Documented by: Dextrose (D50w Syringe) 0 gm IV X1 PRN; Protocol PRN Reason: Hypoglycemia Last Admin: 12/07/19 12:34 Dose: 12.5 gm Documented by: Diazepam (Valium) 5 mg PO 4X/DAY PRN PRN PRN Reason: SPASMS Docusate Sodium (Colace) 100 mg PO BID [facility] Last Admin: 12/08/19 09:17 Dose: 100 mg Documented by: Duloxetine HCl (Cymbalta) 60 mg PO BID [facility] Last Admin: 12/08/19 09:17 Dose: 60 mg Documented by: Enoxaparin Sodium (Lovenox) 40 mg SC DAILY@0600 [facility] Last Admin: 12/08/19 06:32 Dose: 40 mg Documented by: Glucagon () 1 mg IM .X1 PRN PRN Reason: Hypoglycemia Hydralazine HCl (Apresoline Iv) 5 mg IV Q4H PRN PRN PRN Reason: BLOOD PRESSURE Hydromorphone HCl (Dilaudid Inj) 1 mg IV Q3H PRN PRN PRN Reason: Pain Score 6-10/10 Last Admin: 12/08/19 14:35 Dose: 1 mg Documented by: Sodium Chloride () 250 mls @ 15 mls/hr IV .[id number] PRN PRN Reason: Saline Flush Sodium Chloride () 250 mls @ 15 mls/hr IV .[id number] PRN PRN Reason: Additional IVPB Infusion Lactated Ringer's () 1,000 mls @ 60 mls/hr IV .[id number] [facility] Last Infusion: 12/08/19 06:47 Dose: 0 mls/hr Documented by: Piperacillin Sod/Tazobactam (Sod 3.375 gm/ Sodium Chloride) 50 mls @ 12.5 mls/hr IV Q8 [facility] Last Admin: 12/08/19 16:04 Dose: 12.5 mls/hr Documented by: Vancomycin IV Pharmacy to Dose (1 ea/ Sodium Chloride) 500 mls @ 250 mls/hr IV PRN PRN; Protocol PRN Reason: Rx to Dose Sodium Chloride () 500 mls @ 15 mls/hr IV PRN PRN PRN Reason: Blood Transfusion Last Infusion: 12/07/19 20:51 Dose: 0 mls/hr Documented by: Sodium Chloride () 250 mls @ 15 mls/hr IV .[id number] PRN PRN Reason: Saline Flush Sodium Chloride () 250 mls @ 15 mls/hr IV .[id number] PRN PRN Reason: Additional IVPB Infusion Vancomycin HCl 1,750 mg/ (Sodium Chloride) 535 mls @ 250 mls/hr IV Q12H [facility] Last Infusion: 12/08/19 16:07 Dose: Infused Documented by: Insulin Glargine (Lantus (Bkc)) 15 units SC BID [facility] Insulin Human Lispro (Humalog Kwikpen ([facility])) 0 unit SC ACHS [facility]; Protocol Last Admin: 12/08/19 16:25 Dose: 14 u Documented by: Nutritional Formula (James - Hymera Flavor) 1 packet PO BIDCM [facility] Last Admin: 12/08/19 16:25 Dose: 1 packet Documented by: Ondansetron HCl (Zofran) 4 mg IV Q6H PRN PRN PRN Reason: NAUSEA Last Admin: 12/07/19 12:45 Dose: 4 mg Documented by: Oxycodone HCl (Oxyir) 10 mg PO Q4H PRN PRN PRN Reason: Pain Score 4-5/10 Last Admin: 12/08/19 16:06 Dose: 10 mg Documented by: Pantoprazole Sodium (Protonix) 40 mg PO DAILY [facility] Last Admin: 12/08/19 09:17 Dose: 40 mg Documented by: Pregabalin (Lyrica) 200 mg PO TID [facility] Last Admin: 12/08/19 14:32 Dose: 200 mg Documented by: Promethazine HCl (Phenergan Tablet) 25 mg PO Q4H PRN PRN PRN Reason: NAUSEA/VOMITING Sodium Chloride () 10 - 40 ml IV UD PRN PRN Reason: Midline Flush Last Admin: 12/08/19 14:36 Dose: 10 ml Documented by: Sodium Chloride (0.9% Nacl (Sterile) Posiflush) 10 - 40 ml IV UD PRN PRN Reason: Port access or dressing change Sodium Chloride () 10 - 40 ml IV UD PRN PRN Reason: SALINE FLUSH Sodium Chloride () 10 - 40 ml IV UD PRN PRN Reason: SALINE FLUSH Medical Necessity - Tobacco Use Smoking Status: Current every day smoker Assessment/Plan All Active Problems (Last Reviewed 12/07/19 @ 10:[address] 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 Traumatic infected hematoma right BKA stump. 2. Diabetes mellitus. 3. PVD. 4. Smoker. 5. History of necrotizing infection. 6. History of osteomyelitis. 7. s/p surgical preparation right BKA stump with incision and drainage and excisional debridement infected hematoma (19.25 cm2). Wound is stable. No active bleeding seen. VAC applied. To be changed three times per week at 150 mmHg continuous suction. Continue Vancomycin and Zosyn. Operative cultures show Staphylococcus. MRSA PCR was negative. Anticipate discharge on po antibiotics. Prealbumin was 14.0. Encourage nutritional supplementation with protein to help the healing process. HgbA1c was 10.5. She has a appointment with an Scan Coordinator later this month. Discussed with the patient the importance of getting her diabetes under better control as it increases the risk of further amputation. She voices understanding. After discharge, [facility].
[2019-12-08 21:17] VITALS: BP 128/68; PULSE 74; RESP 16; TEMP 36.6; O2SAT 94
[2019-12-08] MEDS: diazePAM 5 MG Tablet PO (21:20)
[2019-12-08] MEDS: Atorvastatin Calcium 40 MG Tablet PO (21:20)
[2019-12-08 21:56] LABS: Bedside Glucose 421 mg/dL (70-110)
[2019-12-09 00:05] VITALS: PULSE 74; RESP 16; O2SAT 94
[2019-12-09] MEDS: HYDROmorphone 1 MG/ML Syringe IV ×2 (02:00→05:30)
[2019-12-09] MEDS: Enoxaparin 40 MG/0.4 ML Syringe SC (05:23)
[2019-12-09] MEDS: Pregabalin 50 MG Capsule 200 MG PO ×2 (05:23→15:00)
[2019-12-09] MEDS: Baclofen 10 MG Tablet 20 MG PO ×2 (05:23→15:00)
[2019-12-09] MEDS: Insulin Lispro 100 UNIT/ML INSULN.PEN SC ×2 (06:35→12:10)
[2019-12-09 07:48] LABS: Bedside Glucose 226 mg/dL (70-110)
[2019-12-09] MEDS: 0.9% Saline Lock 10 ML Syringe IV (08:25)
[2019-12-09] MEDS: oxyCODONE 5 MG Tablet 10 MG PO ×2 (08:25→14:59)
[2019-12-09] MEDS: diazePAM 5 MG Tablet PO (08:25)
[2019-12-09 09:13] LABS: Vancomycin, Trough Level 17.6 ug/mL (5.0-15.0)
--- NOTE | 2019-12-09 09:34 | NURSING ---
Pt hoping to be discharged home today with home health. pt switched over to home VAC at this time.
[2019-12-09] MEDS: Pantoprazole Sodium 40 MG Tablet PO (10:00)
[2019-12-09] MEDS: Docusate Sodium 100 MG Capsule PO (10:00)
[2019-12-09] MEDS: DULoxetine Hcl 30 MG Capsule 60 MG PO (10:00)
[2019-12-09 10:56] VITALS: BP 131/87; PULSE 74; RESP 18; TEMP 36.7; O2SAT 94
[2019-12-09] MEDS: Insulin Lispro 100 UNIT/ML INSULN.PEN 12 UNIT SC (12:09)
[2019-12-09 12:21] LABS: Bedside Glucose 276 mg/dL (70-110)
--- NOTE | 2019-12-09 12:37 | PCM.PN.HOSP ---
<Pablo Cadena - Last Filed: 12/09/19 12:37> Reason for Visit: infected right bka stump Subjective: no complaints. no fever/chills. Tolerating vac. No cough/sob. No nausea/vomiting/diarrhea. Vitals/I&O's: Vital Signs Temp Pulse Resp BP Pulse Ox 98.0 F 74 18 131/87 H 94 12/09/19 10:56 12/09/19 10:56 12/09/19 10:56 12/09/19 10:56 12/09/19 10:56 Oxygen Flow Rate (L/min) 2 Oxygen Delivery Method Room Air Weight: 225 lb 12.054 oz Body Mass Index (BMI) 34.3 Finger Stick Blood Glucose 125 Intake and Output for Last 24 Hours 12/07/19 12/08/19 12/09/19 23:59 23:59 23:59 Intake Total 1213.5 / 2453.5 4410 / 4710 1415.5 / 1415.5 Output Total 3500 / 5000 1500 / 1500 Balance 1213.5 / 453.5 910 / -290 -84.5 / -84.5 General: Alert, Oriented x3, Cooperative HEENT: Atraumatic, PERRLA, EOMI, Normocephalic Neck: Supple, No JVD, Negative Carotid Bruits Lungs: Clear to auscultation, Normal air movement Cardiovascular: Regular rate, No murmurs Abdomen: Bowel Sounds Present, Soft, Non Tender Extremities: No edema, Capillary Refill Less than 3 Seconds Skin: No rashes, No breakdown Musculoskeletal: No Tenderness to Palpation of Joints or Extremities, - - R bka. Neurological: Cranial nerves II-XII grossly intact Psych/Mental Status: Normal Affect, Appropriate, Alert and oriented to time, place, person, mood and affect Microbiology Past 72 Hours 12/07/19 16:00 Incision/Surgical Site Gram Stain - Final 12/07/19 16:00 Incision/Surgical Site Wound Culture - Preliminary No growth-Final to follow 12/07/19 16:00 Incision/Surgical Site Anaerobic Culture - Preliminary 12/07/19 16:00 Incision/Surgical Site Gram Stain - Final 12/07/19 16:00 Incision/Surgical Site Wound Culture - Preliminary Beta hemolytic organism Gram positive organism 12/07/19 16:00 Incision/Surgical Site Anaerobic Culture - Preliminary 12/07/19 13:00 Blood Culture (Wb) - Left Hand Blood Culture - Preliminary No growth in 48 hours. 12/07/19 12:45 Blood Culture (Wb) - Right Hand Blood Culture - Preliminary No growth in 48 hours. Laboratory Results 12/08/19 16:14: POC Glucose 385 H 12/08/19 21:13: POC Glucose 421 H 12/09/19 06:37: POC Glucose 226 H 12/09/19 07:28: Vancomycin Trough 17.6 H 12/09/19 12:06: POC Glucose 276 H Current Medications Acetaminophen (Tylenol) 500 mg PO Q4H PRN PRN PRN Reason: Pain Score 1-06/17 Atorvastatin Calcium (Lipitor) 40 mg PO QHS [facility] Last Admin: 12/08/19 21:20 Dose: 40 mg Documented by: Baclofen (Lioresal) 20 mg PO TID [facility] Last Admin: 12/09/19 05:23 Dose: 20 mg Documented by: Dextrose (D50w Syringe) 0 gm IV X1 PRN; Protocol PRN Reason: Hypoglycemia Last Admin: 12/07/19 12:34 Dose: 12.5 gm Documented by: Diazepam (Valium) 5 mg PO 4X/DAY PRN PRN PRN Reason: SPASMS Last Admin: 12/09/19 08:25 Dose: 5 mg Documented by: Docusate Sodium (Colace) 100 mg PO BID [facility] Last Admin: 12/09/19 10:00 Dose: 100 mg Documented by: Duloxetine HCl (Cymbalta) 60 mg PO BID [facility] Last Admin: 12/09/19 10:00 Dose: 60 mg Documented by: Enoxaparin Sodium (Lovenox) 40 mg SC DAILY@0600 [facility] Last Admin: 12/09/19 05:23 Dose: 40 mg Documented by: Glucagon () 1 mg IM .X1 PRN PRN Reason: Hypoglycemia Insulin Glargine (Lantus (Bkc)) 20 units SC BID [facility] Last Admin: 12/09/19 12:08 Dose: 20 units Documented by: Insulin Human Lispro (Humalog Kwikpen (Bkc)) 0 unit SC ACHS [facility]; Protocol Last Admin: 12/09/19 12:10 Dose: 9 u Documented by: Insulin Human Lispro (Humalog Kwikpen (Bkc)) 12 unit SC TIDAC [facility] Last Admin: 12/09/19 12:09 Dose: 12 units Documented by: Miconazole Nitrate (Monistat 7) 1 applic VAGINAL QHS [facility] Nicotine (Nicoderm Cq (Pbkc)) 14 mg TRANSDERM. DAILY [facility] Last Admin: 12/09/19 11:11 Dose: Not Given Documented by: Nutritional Formula (James - Randall Flavor) 1 packet PO BIDCM [facility] Last Admin: 12/09/19 08:00 Dose: 1 packet Documented by: Oxycodone HCl (Oxyir) 10 mg PO Q4H PRN PRN PRN Reason: Pain Score 6-10/10 Last Admin: 12/09/19 08:25 Dose: 10 mg Documented by: Pantoprazole Sodium (Protonix) 40 mg PO DAILY [facility] Last Admin: 12/09/19 10:00 Dose: 40 mg Documented by: Pregabalin (Lyrica) 200 mg PO TID [facility] Last Admin: 12/09/19 05:23 Dose: 200 mg Documented by: Promethazine HCl (Phenergan Tablet) 25 mg PO Q4H PRN PRN PRN Reason: NAUSEA/VOMITING STROKE Vital Signs/Narrative: Vital Signs Temp Pulse Resp BP Pulse Ox 12/09/19 10:56 98.0 F 74 18 131/87 H 94 Medical Necessity - Tobacco Use Smoking Status: Current every day smoker Assessment/Plan All Active Problems (Last Reviewed 12/07/19 @ 10:[address] 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 Infected R bka stump - complicated by hx PAD, smoking, and poorly controlled DMt2 - s/p I&D, vac placement, Dr. Guadarrama 12/06. On Vanc/Zosyn. Cultures show Beta hemolytic organism and Gram positive organism. Blood cultures negative. Failed bactrim / keflex. 2. DMt2 with obesity - SSI, lantus, mealtime insulin. last A1C 10.5%. Continue lyrica. 3. HLD - Lipitor 4. Anx/Depression - cymbalta 5. GERD - ppi 6. Vaginal yeast infection - likely 2/2 ongoing abx use. miconazole ordered. 7. PAD - resume plavix and aspirin when ok with Dr. Guadarrama. DVT ppx: lovenox DC planning: cultures pending. will have [facility] for vac changes, may need IV abx. Thank you for the opportunity to participate in the care of this patient This patient waqs seen by Pablo Cadena PA-C under the supervision of Dr. Sanchez. <Unruly Sanchez F - Last Filed: 12/09/19 14:18> Vitals/I&O's: Vital Signs Temp Pulse Resp BP Pulse Ox 98.0 F 74 18 131/87 H 94 12/09/19 10:56 12/09/19 10:56 12/09/19 10:56 12/09/19 10:56 12/09/19 10:56 Oxygen Flow Rate (L/min) 2 Oxygen Delivery Method Room Air Weight: 225 lb 12.054 oz Body Mass Index (BMI) 34.3 Finger Stick Blood Glucose 125 Intake and Output for Last 24 Hours 12/07/19 12/08/19 12/09/19 23:59 23:59 23:59 Intake Total 1213.5 / 2453.5 4410 / 4710 1415.5 / 1415.5 Output Total 3500 / 5000 1500 / 1500 Balance 1213.5 / 453.5 910 / -290 -84.5 / -84.5 Microbiology Past 72 Hours 12/07/19 16:00 Incision/Surgical Site Gram Stain - Final 12/07/19 16:00 Incision/Surgical Site Wound Culture - Preliminary No growth-Final to follow 12/07/19 16:00 Incision/Surgical Site Anaerobic Culture - Preliminary 12/07/19 16:00 Incision/Surgical Site Gram Stain - Final 12/07/19 16:00 Incision/Surgical Site Wound Culture - Preliminary Beta hemolytic organism Gram positive organism 12/07/19 16:00 Incision/Surgical Site Anaerobic Culture - Preliminary 12/07/19 13:00 Blood Culture (Wb) - Left Hand Blood Culture - Preliminary No growth in 48 hours. 12/07/19 12:45 Blood Culture (Wb) - Right Hand Blood Culture - Preliminary No growth in 48 hours. Laboratory Results 12/08/19 16:14: POC Glucose 385 H 12/08/19 21:13: POC Glucose 421 H 12/09/19 06:37: POC Glucose 226 H 12/09/19 07:28: Vancomycin Trough 17.6 H 12/09/19 12:06: POC Glucose 276 H Current Medications Acetaminophen (Tylenol) 500 mg PO Q4H PRN PRN PRN Reason: Pain Score 1-10/10 Atorvastatin Calcium (Lipitor) 40 mg PO QHS [facility] Last Admin: 12/08/19 21:20 Dose: 40 mg Documented by: Baclofen (Lioresal) 20 mg PO TID [facility] Last Admin: 12/09/19 05:23 Dose: 20 mg Documented by: Dextrose (D50w Syringe) 0 gm IV X1 PRN; Protocol PRN Reason: Hypoglycemia Last Admin: 12/07/19 12:34 Dose: 12.5 gm Documented by: Diazepam (Valium) 5 mg PO 4X/DAY PRN PRN PRN Reason: SPASMS Last Admin: 12/09/19 08:25 Dose: 5 mg Documented by: Docusate Sodium (Colace) 100 mg PO BID [facility] Last Admin: 12/09/19 10:00 Dose: 100 mg Documented by: Duloxetine HCl (Cymbalta) 60 mg PO BID [facility] Last Admin: 12/09/19 10:00 Dose: 60 mg Documented by: Enoxaparin Sodium (Lovenox) 40 mg SC DAILY@0600 [facility] Last Admin: 12/09/19 05:23 Dose: 40 mg Documented by: Glucagon () 1 mg IM .X1 PRN PRN Reason: Hypoglycemia Insulin Glargine (Lantus (Bkc)) 20 units SC BID [facility] Last Admin: 12/09/19 12:08 Dose: 20 units Documented by: Insulin Human Lispro (Humalog Kwikpen (Bkc)) 0 unit SC ACHS [facility]; Protocol Last Admin: 12/09/19 12:10 Dose: 9 u Documented by: Insulin Human Lispro (Humalog Kwikpen (Bkc)) 12 unit SC TIDAC [facility] Last Admin: 12/09/19 12:09 Dose: 12 units Documented by: Miconazole Nitrate (Monistat 7) 1 applic VAGINAL QHS [facility] Nicotine (Nicoderm Cq (Pbkc)) 14 mg TRANSDERM. DAILY [facility] Last Admin: 12/09/19 11:11 Dose: Not Given Documented by: Nutritional Formula (James - Randall Flavor) 1 packet PO BIDCM [facility] Last Admin: 12/09/19 08:00 Dose: 1 packet Documented by: Oxycodone HCl (Oxyir) 10 mg PO Q4H PRN PRN PRN Reason: Pain Score 6-10/10 Last Admin: 12/09/19 08:25 Dose: 10 mg Documented by: Pantoprazole Sodium (Protonix) 40 mg PO DAILY [facility] Last Admin: 12/09/19 10:00 Dose: 40 mg Documented by: Pregabalin (Lyrica) 200 mg PO TID [facility] Last Admin: 12/09/19 05:23 Dose: 200 mg Documented by: Promethazine HCl (Phenergan Tablet) 25 mg PO Q4H PRN PRN PRN Reason: NAUSEA/VOMITING STROKE Vital Signs/Narrative: Vital Signs Temp Pulse Resp BP Pulse Ox 12/09/19 10:56 98.0 F 74 18 131/87 H 94 Addendum: Dr. Sanchez I personally examined the patient and reviewed the chart. I agree with the above. 49-year-old female with peripheral vascular disease, hyperlipidemia, diabetes presents with pain on her right BKA stump. She had this done around 4 years ago, she presents now with a chronically infected seroma. This was debrided by surgery and a wound VAC was placed today. She is currently on vancomycin and Zosyn pending culture data. Her previous cultures all grew MSSA therefore could likely de-escalate to penicillin or cephalosporin on discharge. We are increasing her insulin regimen given her elevated blood sugar. Inpatient E&M: [id number] [facility] L2
[2019-12-09 14:56] VITALS: BP 128/72; PULSE 67; RESP 18; TEMP 36.7; O2SAT 95
[2019-12-09] MEDS: Acetaminophen 500 MG Tablet PO (14:59)
[2019-12-09] MEDS: Doxycycline 100 MG CAPSULE PO (15:00)
--- NOTE | 2019-12-09 15:19 | CASEMGMT ---
Per Dr. Guadarrama, pt to be sent home today on po antibiotics with [facility] at this time. Pt states hx of [facility] and would prefer the same at this time. Referral faxed to [facility] for SN and call to Ramana at [facility] to notify of referral. Hospital to Post-Acute COVID-19 transfer communication tool also sent with referral at this time. Pt already has home wound vac approved and applied at this time. CM to follow for any further discharge planning/needs. Julissa OAKLEY CM
--- NOTE | 2019-12-09 15:27 | DCINST_ITS ---
You will use the following diet at home:: Calorie/Carbohydrate Controlled (specify 1200, 1400, etc) Discharge Activity: May Shower - on the days the vac is changed., - May shower in (days): 2 - may shower on the days the vac is changed. May resume sexual activity in: No Restrictions Weight Bearing Status: Weight bearing as tolerated Keep extremity elevated above heart level: Right Leg - amputation stump Call your doctor if your incision/area has: Continuous Slow Oozing, Sudden Increased Bleeding, Increased Pain/ Swelling, Increased Redness, Foul Smelling Discharge, Swelling at the incision site Call your doctor if you observe: Fever of 101 or Higher, Coldness, Increased Pain, Shortness of breath, Chest pain, Calf discomfort, Uncontrolled pain Suture Line Care: - - vac changes three times per week at 150 mmHg continuous suction. Cleanse incision/area with: Soap & Water - may cleanse the wound with soap and water at the time of the vac change., - - may take a shower on the days the vac is changed. Allergies/Adverse Reactions: Allergies fentanyl Allergy (Verified 12/06/19 10:44) Other CONFUSION morphine Adverse Reaction (Verified 12/06/19 10:44) Upset Stomach CONFUSION Medications to take at Discharge pregabalin 150 mg capsule 200 mg PO TID cap 06/03/19 aspirin 81 mg tablet,delayed release 81 mg PO DAILY #90 tab 07/01/19 atorvastatin 40 mg tablet 40 mg PO DAILY #90 tab 07/01/19 clopidogrel 75 mg tablet 75 mg PO DAILY #90 tab 07/01/19 duloxetine 30 mg capsule,delayed release 60 mg PO BID #180 cap 07/01/19 pantoprazole 40 mg tablet,delayed release 40 mg PO QDAY #90 tab 07/01/19 nicotine 21mg/24hr-14mg/24hr-7mg/24hr daily transderm patch,sequential 1 patch TRANSDERMAL QDAY #70 patch 07/06/19 insulin detemir U-100 100 unit/mL (3 mL) subcutaneous pen See Rx Instructions .ROUTE .COMPLEX #15 ml 11/24/19 hydrocodone 5 mg-acetaminophen 325 mg tablet 1 tab PO DAILY PRN tab 11/25/19 dulaglutide 1.5 mg/0.5 mL subcutaneous pen injector 1.5 mg SUBCUT QWEEK #2 ml 03/20/20 insulin lispro 100 unit/mL subcutaneous pen 12 unit SUBCUT TIDAC #15 ml 11/26/19 Baclofen [Lioresal] 20 mg PO TID tab 12/09/19 Diazepam [Valium] 5 mg PO TID PRN PRN #20 tablet 12/09/19 Docusate Sodium [Colace] 100 mg PO BID cap 12/09/19 Doxycycline [Vibramycin] 100 mg PO BID #42 cap 12/09/19 Glucagon 1 mg IM .X1 PRN syringe 12/09/19 Insulin Glargine [Lantus SoloStar Pen] 20 units SUBCUT BID pen 12/09/19 Insulin Lispro [Humalog KwikPen] 12 unit SUBCUT TIDAC insuln.pen 12/09/19 Insulin Lispro [Humalog KwikPen] See Protocol SUBCUT ACHS insuln.pen 12/09/19 Miconazole Nitrate [Monistat 7] 1 applic VAGINAL QHS tube 12/09/19 Nicotine [Nicoderm] 14 mg TRANSDERM. DAILY patch 12/09/19 Oxycodone HCl/Acetaminophen [Percocet 5/325] 1 tablet PO Q6H PRN PRN 7 Days #28 tablet 12/09/19 The following prescriptions were given: Oxycodone HCl/Acetaminophen [Percocet 5/325] 1 tablet PO Q6H PRN PRN 7 Days #28 tablet PRN Reason: Pain Score 4-5/10 Transmission Status: Sent to [facility] Diazepam [Valium] 5 mg PO TID PRN PRN #20 tablet PRN Reason: Spasms Transmission Status: Sent to [facility] Doxycycline [Vibramycin] 100 mg PO BID #42 cap Transmission Status: Pending to [facility] Primary Care Physician: Sasha Rodriguez MD [Primary Care Provider] - Test Results: Test results from this visit will be discussed in further detail at your follow- up appointment, if applicable. Please Follow Up With: Grzegorz Guadarrama MD When: 2 weeks at wound center. call [phone] for appt. Proposed Discharge Date: 12/09/19
--- NOTE | 2019-12-09 15:31 | PCM.DC.SUM ---
Discharge Date and Diagnosis Date of Admission: 12/07/19 Date of Discharge: 12/09/19 - Primary Discharge Diagnosis Traumatic infected hematoma right BKA stump. - Secondary Discharge Diagnosis Diabetes mellitus. PVD. Smoker. History of necrotizing infection. History of osteomyelitis. Status post colostomy with subsequent colostomy reversal. Pain right BKA stump. Anxiety and depression History of gangrene Pressure sore of left ischium, stage 4 HLD (hyperlipidemia) Benign essential HTN Hospital Course and Treatment Imaging Results: Diagnostic Data Lower Extremity CT 12/07/19 10:56 IMPRESSION: Status post below knee amputation. Diffuse cellulitis. 3.5 cm x 1.4 cm fluid collection overlying the proximal anterior tibia. Air is seen within the. The underlying bony structures are unremarkable. 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 Fung and Dr. Sanchez. Operations: - - Surgery 12/07/19 - 1. Surgical preparation right BKA stump with incision and drainage and excisional debridement infected hematoma (19.25 cm2). 2. Partial ostectomy tibia for osteomyelitis. Procedures: Wound vac placement Summary of Care Provided: 49 year old woman presents with pain in her right BKA stump when she is wearing her prosthesis. She states she underwent the right BKA about 4 years ago. She had surgery on 12/28/18 for surgical preparation right BKA stump with incision and drainage and excisional debridement chronic infected seroma anterior aspect of stump and partial ostectomy tibia for osteomyelitis and complex secondary wound closure revision reconstruction. She denies any fever. She denies any trauma besides normal wear and tear of the stump within the prosthesis. She was seen in the office last week and a previous painful lump (probable seroma) had resolved after recent revision of her prosthesis. She started noticing increasing pain and redness on the anterior aspect of her amputation stump over the weekend and went to the ED. X-ray showed no fracture and no evidence of osteomyelitis. There was no evidence of soft tissue gas or radiopaque foreign body. Aspiration was done in the ED and blood was obtained suggestive of a hematoma. A culture was obtained and is negative thus far. Compression therapy with an JOSE D wrap was started. She was started on Keflex and Bactrim. Today she noted worsening symptomatology and has failed outpatient therapy. She is being admitted today to start IV antibiotics and proceed with operative intervention of incision and drainage and excisional debridement infected hematoma with possible partial ostectomy for osteomyelitis. CT scan was done which showed diffuse increased markings within the subcutaneous fat in keeping with the cellulitis. There is a 3.5 cm x 1.4 cm fluid collection overlying the proximal anterior tibia. Air is seen within this collection. The patient is status post below knee amputation. The underlying bone is unremarkable. Also on admission there was purulent drainage. Her WBC was 6.7. Because of her painful symptomatology and the purulent drainage and her history of diabetes mellitus, I decided to take her to surgery urgently today because I didn't want this infection becoming systemic and leading to sepsis. On the day of admission, 12/07/19, the patient went to the operating room where she underwent surgical preparation right BKA stump with incision and drainage and excisional debridement infected hematoma (19.25 cm2) and partial ostectomy tibia for osteomyelitis. She tolerated the procedure well and was sent to PACU in satisfactory condition. The Hospitalist group was consulted for medical management. The next day the VAC was applied. Operative culture preliminary was Staphylococcus aureus. She was treated perioperatively with Vancomycin and Zosyn. Her Prealbumin was 14.0. Encouraged nutritional supplementation with protein to help the healing process. Her HgbA1c was 10.5. Discussed with the patient the importance of getting that number down to minimize further diabetic complications. Otherwise she will have recurrent infections and eventually an amputation on the other leg. She stated she has an appointment with the Accounts Payable Representative later in December. On the second postop day, the VAC was approved. She tolerated oral analgesia. Discharge home today. Followup at [facility] in two weeks. Will discharge home on Doxycycline. Once the sensitivities are back, antibiotic modification may be necessary. Home Health will assist with VAC changes three times per week at 150 mmHg continuous suction. Wrote script for Doxycycline. Wrote scripts for Percocet for pain (28 tabs) and for Valium for spasm (20 tabs). Subjective: Postop #2 Patient resting comfortably. - Physical Exam Vitals/I&O's: Vital Signs Temp Pulse Resp BP Pulse Ox 98.0 F 67 18 128/72 H 95 12/09/19 14:56 12/09/19 14:56 12/09/19 14:56 12/09/19 14:56 12/09/19 14:56 Oxygen Flow Rate (L/min) 2 Oxygen Delivery Method Room Air Weight: 225 lb 12.054 oz Body Mass Index (BMI) 34.3 Finger Stick Blood Glucose 125 Intake and Output for Last 24 Hours 12/07/19 12/08/19 12/09/19 23:59 23:59 23:59 Intake Total 1213.5 / 2453.5 4410 / 4710 1415.5 / 1415.5 Output Total 3500 / 5000 1500 / 1500 Balance 1213.5 / 453.5 910 / -290 -84.5 / -84.5 General: Alert, Oriented x3 HEENT: PERRLA, EOMI Oral: Moist Mucosa Neck: Supple Abdomen: Soft, Non-Distended Skin: Ulcer/ Wound - Right BKA stump wound is stable. VAC in place. Minimal drainage in the canister. Neurological: Cranial nerves II-XII grossly intact Psych/Mental Status: Normal Affect, Appropriate Microbiology Past 72 Hours 12/07/19 16:00 Incision/Surgical Site Gram Stain - Final 12/07/19 16:00 Incision/Surgical Site Wound Culture - Preliminary No growth-Final to follow 12/07/19 16:00 Incision/Surgical Site Anaerobic Culture - Preliminary 12/07/19 16:00 Incision/Surgical Site Gram Stain - Final 12/07/19 16:00 Incision/Surgical Site Wound Culture - Preliminary Beta hemolytic organism Gram positive organism 12/07/19 16:00 Incision/Surgical Site Anaerobic Culture - Preliminary 12/07/19 13:00 Blood Culture (Wb) - Left Hand Blood Culture - Preliminary No growth in 48 hours. 12/07/19 12:45 Blood Culture (Wb) - Right Hand Blood Culture - Preliminary No growth in 48 hours. Laboratory Results 12/08/19 16:14: POC Glucose 385 H 12/08/19 21:13: POC Glucose 421 H 12/09/19 06:37: POC Glucose 226 H 12/09/19 07:28: Vancomycin Trough 17.6 H 12/09/19 12:06: POC Glucose 276 H Current Medications Acetaminophen (Tylenol) 500 mg PO Q4H PRN PRN PRN Reason: Pain Score 1-10 Last Admin: 12/09/19 14:59 Dose: 500 mg Documented by: Atorvastatin Calcium (Lipitor) 40 mg PO QHS [facility] Last Admin: 12/08/19 21:20 Dose: 40 mg Documented by: Baclofen (Lioresal) 20 mg PO TID [facility] Last Admin: 12/09/19 15:00 Dose: 20 mg Documented by: Dextrose (D50w Syringe) 0 gm IV X1 PRN; Protocol PRN Reason: Hypoglycemia Last Admin: 12/07/19 12:34 Dose: 12.5 gm Documented by: Diazepam (Valium) 5 mg PO 4X/DAY PRN PRN PRN Reason: SPASMS Last Admin: 12/09/19 08:25 Dose: 5 mg Documented by: Docusate Sodium (Colace) 100 mg PO BID [facility] Last Admin: 12/09/19 10:00 Dose: 100 mg Documented by: Duloxetine HCl (Cymbalta) 60 mg PO BID [facility] Last Admin: 12/09/19 10:00 Dose: 60 mg Documented by: Enoxaparin Sodium (Lovenox) 40 mg SC DAILY@0600 [facility] Last Admin: 12/09/19 05:23 Dose: 40 mg Documented by: Glucagon () 1 mg IM .X1 PRN PRN Reason: Hypoglycemia Insulin Glargine (Lantus (Bkc)) 20 units SC BID [facility] Last Admin: 12/09/19 12:08 Dose: 20 units Documented by: Insulin Human Lispro (Humalog Kwikpen (Bkc)) 0 unit SC ACHS [facility]; Protocol Last Admin: 12/09/19 12:10 Dose: 9 u Documented by: Insulin Human Lispro (Humalog Kwikpen (Bkc)) 12 unit SC TIDAC [facility] Last Admin: 12/09/19 12:09 Dose: 12 units Documented by: Miconazole Nitrate (Monistat 7) 1 applic VAGINAL QHS [facility] Nicotine (Nicoderm Cq (Pbkc)) 14 mg TRANSDERM. DAILY [facility] Last Admin: 12/09/19 11:11 Dose: Not Given Documented by: Nutritional Formula (James - [place] Flavor) 1 packet PO BIDCM [facility] Last Admin: 12/09/19 08:00 Dose: 1 packet Documented by: Oxycodone HCl (Oxyir) 10 mg PO Q4H PRN PRN PRN Reason: Pain Score 6-10/10 Last Admin: 12/09/19 14:59 Dose: 10 mg Documented by: Pantoprazole Sodium (Protonix) 40 mg PO DAILY [facility] Last Admin: 12/09/19 10:00 Dose: 40 mg Documented by: Pregabalin (Lyrica) 200 mg PO TID [facility] Last Admin: 12/09/19 15:00 Dose: 200 mg Documented by: Promethazine HCl (Phenergan Tablet) 25 mg PO Q4H PRN PRN PRN Reason: NAUSEA/VOMITING Discharge Diet: Carb Control Diet Discharge Activity: May Shower - on the days the vac is changed., - May shower in (days): 2 - may shower on the days the vac is changed. May resume sexual activity in: No Restrictions Weight Bearing Status: Weight bearing as tolerated Keep extremity elevated above heart level: Right Leg - amputation stump Call your doctor if your incision/area has: Continuous Slow Oozing, Sudden Increased Bleeding, Increased Pain/ Swelling, Increased Redness, Foul Smelling Discharge, Swelling at the incision site Call your doctor if you observe: Fever of 101 or Higher, Coldness, Increased Pain, Shortness of breath, Chest pain, Calf discomfort, Uncontrolled pain Suture Line Care: - - vac changes three times per week at 150 mmHg continuous suction. Cleanse incision/area with: Soap & Water - may cleanse the wound with soap and water at the time of the vac change., - - may take a shower on the days the vac is changed. Home Medications: Medications to take at Discharge pregabalin 150 mg capsule 200 mg PO TID cap 06/03/19 aspirin 81 mg tablet,delayed release 81 mg PO DAILY #90 tab 07/01/19 atorvastatin 40 mg tablet 40 mg PO DAILY #90 tab 07/01/19 clopidogrel 75 mg tablet 75 mg PO DAILY #90 tab 07/01/19 duloxetine 30 mg capsule,delayed release 60 mg PO BID #180 cap 07/01/19 pantoprazole 40 mg tablet,delayed release 40 mg PO QDAY #90 tab 07/01/19 nicotine 21mg/24hr-14mg/24hr-7mg/24hr daily transderm patch,sequential 1 patch TRANSDERMAL QDAY #70 patch 07/06/19 insulin detemir U-100 100 unit/mL (3 mL) subcutaneous pen See Rx Instructions .ROUTE .COMPLEX #15 ml 11/24/19 hydrocodone 5 mg-acetaminophen 325 mg tablet 1 tab PO DAILY PRN tab 11/25/19 dulaglutide 1.5 mg/0.5 mL subcutaneous pen injector 1.5 mg SUBCUT QWEEK #2 ml 11/26/19 insulin lispro 100 unit/mL subcutaneous pen 12 unit SUBCUT TIDAC #15 ml 11/26/19 Baclofen [Lioresal] 20 mg PO TID tab 12/09/19 Diazepam [Valium] 5 mg PO TID PRN PRN #20 tab 12/09/19 Docusate Sodium [Colace] 100 mg PO BID cap 12/09/19 Doxycycline [Vibramycin] 100 mg PO BID #42 cap 12/09/19 Glucagon 1 mg IM .X1 PRN syringe 12/09/19 Insulin Glargine [Lantus SoloStar Pen] 20 units SUBCUT BID pen 12/09/19 Insulin Lispro [Humalog KwikPen] 12 unit SUBCUT TIDAC insuln.pen 12/09/19 Insulin Lispro [Humalog KwikPen] See Protocol SUBCUT ACHS insuln.pen 12/09/19 Miconazole Nitrate [Monistat 7] 1 applic VAGINAL QHS tube 12/09/19 Nicotine [Nicoderm] 14 mg TRANSDERM. DAILY patch 12/09/19 Oxycodone HCl/Acetaminophen [Percocet 5/325] 1 tab PO Q6H PRN PRN 7 Days #28 tab 12/09/19 Following Prescrptions Were Given to Patient: Oxycodone HCl/Acetaminophen [Percocet 5/325] 1 tab PO Q6H PRN PRN 7 Days #28 tab PRN Reason: Pain Score 4-5/10 Transmission Status: Received by [facility] Diazepam [Valium] 5 mg PO TID PRN PRN #20 tab PRN Reason: Spasms Transmission Status: Received by [facility] Doxycycline [Vibramycin] 100 mg PO BID #42 cap Transmission Status: Received by [facility] Primary Care Physician: Sasha Rodriguez MD [Primary Care Provider] - Please Follow Up With: Grzegorz Guadarrama MD When: 2 weeks at wound center. call [phone] for appt. Disposition: Home with Home Health Minutes spent on discharge:: 35 Patient Condition:: Stable Medical Necessity - Tobacco Use Smoking Status: Current every day smoker Meaningful Use Info Meaningful Use Diagnoses (Choose all that apply): None applicable
--- NOTE | 2019-12-10 10:24 | CASEMGMT ---
Addendum entered by Carolyn Griffin 12/10/19 15:34: D/C summ faxed to [facility] at this time. Julissa OAKLEY CM Original Note: Call from [facility] to clarify where wound vac obtained from and then they state that they will be out to see pt today. Julissa OAKLEY CM
== END 2019-12-09 17:38 | disposition home or self-care (01) | DRG 465 ==
PROVIDERS: Admitting Provider Surgery; PCP Internal Medicine; Referring Provider Surgery; Visit Provider Family Medicine
PROC: 0JBN0ZZ Excision of Right Lower Leg Subcutaneous Tissue and Fascia, Open Approach (ICD-10-PCS; principal; 2019-12-07 13:50)
DX: T87.89 Other complications of amputation stump (principal); T87.43 Infection of amputation stump, right lower extremity; B95.61 Methicillin susceptible Staphylococcus aureus infection as the cause of diseases classified elsewhere; E11.51 Type 2 diabetes mellitus with diabetic peripheral angiopathy without gangrene; Z87.39 Personal history of other diseases of the musculoskeletal system and connective tissue; E11.65 Type 2 diabetes mellitus with hyperglycemia; Z89.511 Acquired absence of right leg below knee; B37.3 Candidiasis of vulva and vagina; I10 Essential (primary) hypertension; K21.9 Gastro-esophageal reflux disease without esophagitis; I73.00 Raynaud's syndrome without gangrene; E78.5 Hyperlipidemia, unspecified; F32.9 Major depressive disorder, single episode, unspecified; F41.9 Anxiety disorder, unspecified; E66.9 Obesity, unspecified; F17.200 Nicotine dependence, unspecified, uncomplicated; Z68.34 Body mass index [BMI] 34.0-34.9, adult; Z86.718 Personal history of other venous thrombosis and embolism; Z79.82 Long term (current) use of aspirin; Z79.02 Long term (current) use of antithrombotics/antiplatelets; Z79.4 Long term (current) use of insulin; Z79.899 Other long term (current) drug therapy
CPT/HCPCS: 36415; 73590; 73700; 80048; 80053; 80202; 82962; 83036; 84134; 85027; 85652; 86140; 87040; 87070; 87075; 87077; 87102; 87186; 87205; 87206; 87640; 88304; 88305; 88311; 99285; 99406; J7040; J7050; J7120; A4216; J2405

== ENCOUNTER 2020-01-03 09:00 | Outpatient (RCR) | payer MEDICARE, MEDICAID, SELFPAY ==
[2019-08-08 00:36] VITALS: BP 126/79; PULSE 98; RESP 16; TEMP 35.9
[2019-12-07 10:37] VITALS: BMI 34.3
[2019-12-20 14:11] VITALS: BP 122/72; PULSE 87; RESP 18; TEMP 36.8; BMI 30.9
--- NOTE | 2019-12-20 15:02 | HP.PCM_ITS ---
(1) Wound of lower extremity Status: Acute Current Visit: Yes Code(s): S81.809A - Unspecified open wound, unspecified lower leg, initial encounter (2) History of osteomyelitis Status: Chronic Current Visit: No Code(s): Z87.39 - Personal history of other diseases of the musculoskeletal system and connective tissue (3) Tobacco abuse Status: Chronic Current Visit: No Code(s): Z72.0 - Tobacco use (4) Hx of right BKA Status: Chronic Current Visit: No Code(s): Z89.511 - Acquired absence of right leg below knee Comment: 1. Surgical preparation anterior aspect right BKA stump with excisional debridement nonhealing painful ulcer. 2. Partial ostectomy tibia for osteomyelitis. 3. 3 cm complex secondary wound closure - 06/11/19 1. 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 2. Partial ostectomy tibia for osteomyelitis. 3. Complex secondary wound closure revision reconstruction - 12/28/18 (5) DM2 (diabetes mellitus, type 2) Status: Chronic Current Visit: Yes Code(s): E11.9 - Type 2 diabetes mellitus without complications History of Present Illness Date of Service: 12/20/19 Chief Complaint: Infected diabeted wound right BKA stump. History of Wound: Patient had been having issues with pain and swelling intermittently that she was seen in the office and ended up in the ED for treat ment. Surgery 12/07/19- 1. Surgical preparation right BKA stump with incision and drainage and excisional debridement infected hematoma (19.25 cm2). 2. Partial ostectomy tibia for osteomyelitis. Bone culture and tissue culture from 12/07/19 both positive for Staphylococcus aureaus. Wound care- VAC. She is having increased pain, especially with the wound VAC. Her HgA1c is 10.5 from 12/07/19 and Prealbumin was 14. She denies fever today and states her appetite is ok. Surgery 06/11/19 - surgical preparation anterior aspect right BKA stump with excisional debridement non healing painful ulcer and partial ostectomy tibia fro osteomyelitis and 3 cm complex secondary wound closure. Operative culture from 06/11/19 - soft tissue - Staphylococcus aureus, bone - Staphylococcus aureus. She was discharged on Doxycycline. Pathology - positive for acute osteomyelitis. Prealbumin from 12/29/18 was 15.0. MRI from 12/01/18 showed small rim-enhancing abscess at the anterior lateral subcutaneous tissues. Below-knee amputation without acute osteomyelitis. Mild medial and lateral compartment cartilage loss. Tiny popliteal cyst. Muscle atrophy. Today she denies fever. Her appetite is ok. Past Medical History Past Medical History: Chronic Problems (Last Reviewed 12/07/19 @ 10:[address] 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) Open wound of right lower leg with complication (Chronic) open surgical wound anterior aspect right BKA stump Infection of amputation stump, right lower extremity (Chronic) infected seroma anterior aspect right BKA stump History of necrotizing fasciitis (Chronic) Status post colostomy (Chronic) Smoker (Chronic) 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 (Chronic) right BKA Tobacco abuse (Chronic) Anxiety and depression (Chronic) History of gangrene (Chronic) Pressure sore of left ischium, stage 4 (Chronic) Type 2 diabetes mellitus with other skin ulcer (Chronic) Hx of right BKA (Chronic) 1. Surgical preparation anterior aspect right BKA stump with excisional debridement nonhealing painful ulcer. 2. Partial ostectomy tibia for osteomyelitis. 3. 3 cm complex secondary wound closure - 06/11/19 1. 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 2. Partial ostectomy tibia for osteomyelitis. 3. Complex secondary wound closure revision reconstruction - 12/28/18 Chronic pain (Chronic) PVD (peripheral vascular disease) (Chronic) HLD (hyperlipidemia) (Chronic) DM2 (diabetes mellitus, type 2) (Chronic) Benign essential HTN (Chronic) Past Medical History: Non controlled type 2 diabetes Surgical History: - - Right leg below the knee amputation with ulcer revision, other surgeries reviewed with patient Allergies/Adverse Reactions: Allergies fentanyl Allergy (Verified 12/06/19 10:44) Other CONFUSION morphine Adverse Reaction (Verified 12/06/19 10:44) Upset Stomach CONFUSION Home Medications: Ambulatory Orders Medication Instructions Recorded pregabalin 150 mg capsule 200 mg PO TID cap 06/03/19 aspirin 81 mg tablet,delayed 81 mg PO DAILY #90 tab 07/01/19 release atorvastatin 40 mg tablet 40 mg PO DAILY #90 tab 07/01/19 clopidogrel 75 mg tablet 75 mg PO DAILY #90 tab 07/01/19 duloxetine 30 mg capsule,delayed 60 mg PO BID #180 cap 07/01/19 release pantoprazole 40 mg tablet,delayed 40 mg PO QDAY #90 tab 07/01/19 release nicotine 1 patch TRANSDERMAL QDAY #70 patch 07/06/19 21mg/24hr-14mg/24hr-7mg/24hr daily transderm patch,sequential insulin detemir U-100 100 unit/mL See Rx Instructions .ROUTE 11/24/19 (3 mL) subcutaneous pen .COMPLEX #15 ml hydrocodone 5 mg-acetaminophen 325 1 tab PO DAILY PRN tab 11/24/ mg tablet dulaglutide 1.5 mg/0.5 mL 1.5 mg SUBCUT QWEEK #2 ml 11/26/19 subcutaneous pen injector insulin lispro 100 unit/mL 12 unit SUBCUT TIDAC #15 ml 11/26/19 subcutaneous pen Baclofen [Lioresal] 20 mg PO TID tab 12/09/19 Diazepam [Valium] 5 mg PO TID PRN PRN #20 tab 12/09/19 Docusate Sodium [Colace] 100 mg PO BID cap 12/09/19 Doxycycline [Vibramycin] 100 mg PO BID #42 cap 12/09/19 Glucagon 1 mg IM .X1 PRN syringe 12/09/19 Insulin Glargine [Lantus SoloStar 20 units SUBCUT BID pen 12/09/19 Pen] Insulin Lispro [Humalog KwikPen] 12 unit SUBCUT TIDAC insuln.pen 12/09/19 Insulin Lispro [Humalog KwikPen] See Protocol SUBCUT ACHS 12/09/19 insuln.pen Miconazole Nitrate [Monistat 7] 1 applic VAGINAL QHS tube 12/09/19 Nicotine [Nicoderm] 14 mg TRANSDERM. DAILY patch 12/09/19 Oxycodone HCl/Acetaminophen 1 tab PO Q6H PRN PRN 12/20/19 [Percocet 2.5-325 mg Tablet] diazepam 5 mg tablet 5 mg PO BID PRN 7 Days #14 tab 12/20/19 oxycodone-acetaminophen 5 mg-325 1 tab PO TID PRN 7 Days #21 tab 12/20/19 mg tablet - Family History Maternal Family History: Family History (Last Reviewed 12/07/19 @ 10:[address] Grzegorz Guadarrama MD) Father Cancer Mother Hypertension Fibromyalgia Thyroid disorder Brother Diabetes Grandmother Myocardial infarction Grandfather Cancer Diabetes Smoking Status: Current every day smoker Review of Systems Constitutional: Denies: Chills, Fever, Weight Change Eyes: Denies: Pain, Vision Change HEENT: Denies: Difficulty Hearing, Difficulty Swallowing, Sinus Congestion Cardiovascular: Denies: Chest Pain, Palpitations Respiratory: Denies: Cough, Shortness of Breath Gastrointestinal: Denies: Diarrhea, Nausea, Vomiting Genitourinary: Denies: Dysuria, Hematuria Musculoskeletal: Reports: Leg Pain - right BKA stump Skin: Reports: Wounds - right anterior BKA stump surgical wound Neurological: Reports: Balance problems Psychiatric: Reports: Anxiety, Depression - Physical Exam Vital Signs Temp Pulse Resp BP 98.3 F 87 18 122/72 H 12/20/19 14:11 12/20/19 14:11 12/20/19 14:11 12/20/19 14:11 General: Alert, Oriented x3, Cooperative HEENT: Atraumatic Oral: Moist Mucosa Lungs: Clear to auscultation, Normal air movement Cardiovascular: Regular rate, Regular Rhythm Abdomen: Soft, Obese Extremities: Capillary Refill Less than 3 Seconds, Edema Skin: Ulcer/ Wound - Right anterior BKA stump surgical wound which is pink and clean Wound Measurements and Assessment WC - Nurse 1 - General Ulcer Measurement Start: 12/20/19 14:11 Freq: Status: Active Protocol: Activity Type Activity Date Activity User E-Sign Co-Sign Detail Recorded Client Recorded Date Recorded By Document 12/20/19 14:11 [id number] 12/20/19 14:23 12/20/19 14:11 Wound Center Nurse 1 [Ulcer Assessment] 7-right BKA -Current Size (cm) - Length 4.8 -Current Size (cm) - Width 3.3 -Current Size (cm) - Depth 0.6 -Total Square Cm 15.84 -Photo Taken Yes -Undermining/Tunneling Starts (O' 1 clock) -Undermining/Tunneling Ends (O'clock) 3 -Maximum Distance (cm) 0.4 -Circular Undermining No -Exudate Amt Small -Exudate Type Serosanguineous -Wound Margin Distinct, Outline Attached -Granulation Amt Medium (34-66%) -Granulation Quality Pale,[place] -Necrosis Amt Medium (34-66%) -Necrotic Tissue Type Adherent Slough -Structure Exposed Bone -Texture (Love-wound Skin Appearance) Localized Edema ,Scarring -Moisture (Love-wound Skin Appearance No Abnormality ) -Color (Love-wound Skin Appearance) No Abnormality -Temperature (Love-wound Skin No Abnormality Appearance) (Pt Warm) -Tenderness on Palpation (Love-wound No Skin Appearance) -Ulcer Cleansing Wound Cleanser -Foul Odor after Cleansing No -Anesthetic Used 4% Lidocaine Solution WC - Nurse 2 - General Ulcer CM Notes Start: 12/20/19 14:11 Freq: Status: Active Protocol: Activity Type Activity Date Activity User E-Sign Co-Sign Detail Recorded Client Recorded Date Recorded By Document 12/20/19 14:47 SHAYNA [id number] 12/20/19 14:48 SHAYNA 12/20/19 14:47 Wound Center Nurse 2 [Procedure/Treatment] -Time 14:47 -Correct Patient Yes -Correct Side, Site, Position Yes -Correct Procedure Yes -Procedure Performed Yes -Type of Procedure Debridement -Clinical Debridement Muscle -Post Debridement Size (cm) - Length 5.0 -Post Debridement Size (cm) - Width 3.5 -Post Debridement Size (cm) - Depth 0.9 -Total Square Cm 17.50 -Wound/Ulcer Outcome Not Healed -Ulcer Cleansing Rinsed/ Irrigated with Saline -Foul Odor after Cleansing No -Bioengineered Tissue No -Bleeding Controlled with Pressure -Offloading No -Treatment Response Procedure Tolerated Well [See Physician Procedure note for Specifics] Pain Scale: 0-10 Numeric [Pain] -Is Patient Pain Free? Yes Musculoskeletal: Tenderness Neurological: Neuro grossly intact Psych/Mental Status: Normal Affect, Appropriate Debridement Note Post-Debridement Measurements/Treatment WC - Nurse 2 - General Ulcer CM Notes Start: 12/20/19 14:11 Freq: Status: Active Protocol: Activity Type Activity Date Activity User E-Sign Co-Sign Detail Recorded Client Recorded Date Recorded By Document 12/20/19 14:47 SHAYNA [id number] 12/20/19 14:48 12/20/19 14:47 Wound Center Nurse 2 7-right BKA -Time 14:47 -Correct Patient Yes -Correct Side, Site, Position Yes -Correct Procedure Yes -Procedure Performed Yes -Type of Procedure Debridement -Clinical Debridement Muscle -Post Debridement Size (cm) - Length 5.0 -Post Debridement Size (cm) - Width 3.5 -Post Debridement Size (cm) - Depth 0.9 -Total Square Cm 17.50 -Wound/Ulcer Outcome Not Healed -Ulcer Cleansing Rinsed/ Irrigated with Saline -Foul Odor after Cleansing No -Bioengineered Tissue No -Bleeding Controlled with Pressure -Offloading No -Treatment Response Procedure Tolerated Well Pain Scale: 0-10 Numeric Is Patient Pain Free? Yes Wound debrided: BKA stump anterior surgical wound Laterality: Right Type of Debridement: Excisional debridement Anesthesia Used: 5% Lidocaine Gel Depth: Down to and including healthy tissue, in the subcutaneous layer Percentage of wound debrided: 100 Instrument Used: 5mm curette Tissue Removed: Subcutaneous tissue and slough Severity: Fat Layer Exposed Amount of bleeding with debridement: Mild Bleeding Controlled with: Pressure Patient tolerated procedure well Assessment/Plan Active Problems (Last Reviewed 12/07/19 @ 10:[address] Grzegorz Guadarrama MD) Wound of lower extremity (Acute) Type 2 diabetes mellitus with other skin ulcer (Chronic) DM2 (diabetes mellitus, type 2) (Chronic) Assessment: 1. Traumatic infected hematoma right BKA stump. 2. Diabetes mellitus- uncontrolled. 3. PVD. 4. Smoker. 5. History of necrotizing infection. 6. Osteomyelitis. Plan: Patient had been having issues with pain and swelling intermittently that she was seen in the office and ended up in the ED for treatment. Surgery 12/07/19- 1. Surgical preparation right BKA stump with incision and drainage and excisional debridement infected hematoma (19.25 cm2). 2. Partial ostectomy tibia for osteomyelitis. Operative bone culture and tissue culture from 12/07/19 both positive for Staphylococcus aureaus. She is on Doxycycline. Wound care- [facility]. [facility] [place] [employer] [facility] help with [facility] wound VAC changes. She is having increased pain, especially with the wound VAC. Her HgA1c is 10.5 from 12/07/19 and Prealbumin was 14. Renewed Percocet (21). Valium (20). PDMP reviewed. Operative culture showed Staphylococcus aureus in both the soft tissue and bone. She was placed on Doxycycline and will continue them. The Pathology was positive for acute osteomyelitis. Her Prealbumin from 12/29/18 was 15.0. Encourage nutritional supplementation with protein to help the healing process. Encouraged the patient to stop smoking as it may have deleterious effects on wound healing. [id number]: [id number] Global Visit
[2020-01-03 09:19] VITALS: BP 109/64; PULSE 94; RESP 18; TEMP 36.1; O2SAT 99; BMI 30.9
--- NOTE | 2020-01-03 11:42 | PN.PCM_ITS ---
(1) Wound of lower extremity Status: Acute Code(s): S81.809A - Unspecified open wound, unspecified lower leg, initial encounter (2) History of osteomyelitis Status: Chronic Code(s): Z87.39 - Personal history of other diseases of the musculoskeletal system and connective tissue (3) Tobacco abuse Status: Chronic Code(s): Z72.0 - Tobacco use (4) Hx of right BKA Status: Chronic Code(s): Z89.511 - Acquired absence of right leg below knee Comment: 1. Surgical preparation anterior aspect right BKA stump with excisional debridement nonhealing painful ulcer. 2. Partial ostectomy tibia for osteomyelitis. 3. 3 cm complex secondary wound closure - 06/11/19 1. 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 2. Partial ostectomy tibia for osteomyelitis. 3. Complex secondary wound closure revision reconstruction - 12/28/18 (5) DM2 (diabetes mellitus, type 2) Status: Chronic Code(s): E11.9 - Type 2 diabetes mellitus without complications Type of Wound Date of Service: 01/03/20 Chief Complaint: Infected diabeted wound right BKA stump. History of Wound: Patient had been having issues with pain and swelling intermittently that she was seen in the office and ended up in the ED for treatment. Surgery 12/07/19- 1. Surgical preparation right BKA stump with incision and drainage and excisional debridement infected hematoma (19.25 cm2). 2. Partial ostectomy tibia for osteomyelitis. Bone culture and tissue culture from 12/07/19 both positive for Staphylococcus aureaus. Wound care- VAC. She is having increased pain, especially with the wound VAC. Her HgA1c is 10.5 from 12/07/19 and Prealbumin was 14. She denies fever today and states her appetite is ok. Surgery 06/11/19 - surgical preparation anterior aspect right BKA stump with excisional debridement non healing painful ulcer and partial ostectomy tibia fro osteomyelitis and 3 cm complex secondary wound closure. Operative culture from 06/11/19 - soft tissue - Staphylococcus aureus, bone - Staphylococcus aureus. She was discharged on Doxycycline. Pathology - positive for acute osteomyelitis. Prealbumin from 12/29/18 was 15.0. MRI from 12/01/18 showed small rim-enhancing abscess at the anterior lateral subcutaneous tissues. Below-knee amputation without acute osteomyelitis. Mild medial and lateral compartment cartilage loss. Tiny popliteal cyst. Muscle atrophy. Today she denies fever. Her appetite is ok. Progress of Wound: Surgical closure on 06/11/19. She is healed today. - Physical Exam Vital Signs Temp Pulse Resp BP Pulse Ox 97.0 F L 94 18 109/64 99 01/03/20 09:19 01/03/20 09:19 01/03/20 09:19 01/03/20 09:19 01/03/20 09:19 General: Alert, Oriented x3, Cooperative HEENT: Atraumatic Oral: Moist Mucosa Lungs: Normal air movement Cardiovascular: Regular rate Extremities: Capillary Refill Less than 3 Seconds, Tenderness Skin: Ulcer/ Wound - Ulcer of right BKA with bone exposure. Wound Measurements and Assessment WC - Nurse 1 - General Ulcer Measurement Start: 12/20/19 14:11 Freq: Status: Active Protocol: Activity Type Activity Date Activity User E-Sign Co-Sign Detail Recorded Client Recorded Date Recorded By Document 01/03/20 09:19 [place] [id number] 01/03/20 09:30 [place] 01/03/20 09:19 Wound Center Nurse 1 [Ulcer Assessment] 7-right BKA -Current Size (cm) - Length 4.5 -Current Size (cm) - Width 3.0 -Current Size (cm) - Depth 1.0 -Total Square Cm 13.50 -Undermining/Tunneling Yes -Undermining/Tunneling Starts (O' 4 clock) -Undermining/Tunneling Ends (O'clock) 6 -Maximum Distance (cm) 0.4 -Wound Margin Thickened & Rolled Under -Granulation Amt Medium (34-66%) -Granulation Quality Pale,[place] -Slough/Fibrin Yes -Necrosis Amt Small (1-33%) -Necrotic Tissue Type Adherent Slough -Texture (Love-wound Skin Appearance) Assessed -Moisture (Love-wound Skin Appearance Assessed ) -Color (Love-wound Skin Appearance) Assessed -Temperature (Love-wound Skin No Abnormality Appearance) (Pt Warm) -Tenderness on Palpation (Love-wound No Skin Appearance) -Ulcer Cleansing Rinsed/ Irrigated with Saline -Foul Odor after Cleansing No -Anesthetic Used 4% Lidocaine Solution [Edema Assessment] -Lower Limb Edema Present NA WC - Nurse 2 - General Ulcer CM Notes Start: 12/20/19 14:11 Freq: Status: Active Protocol: Activity Type Activity Date Activity User E-Sign Co-Sign Detail Recorded Client Recorded Date Recorded By Document 01/03/20 09:46 [id number] 01/03/20 09:47 01/03/20 09:46 Wound Center Nurse 2 [Procedure/Treatment] 7-right BKA -Time 09:46 -Correct Patient Yes -Correct Side, Site, Position Yes -Correct Procedure Yes -Procedure Performed Yes -Type of Procedure Debridement -Clinical Debridement Subcutaneous -Post Debridement Size (cm) - Length 4.2 -Post Debridement Size (cm) - Width 2.8 -Post Debridement Size (cm) - Depth 0.8 -Total Square Cm 11.76 -Wound/Ulcer Outcome Not Healed -Ulcer Cleansing Rinsed/ Irrigated with Saline -Foul Odor after Cleansing No -Bioengineered Tissue No -Bleeding Controlled with Pressure -Offloading No -Treatment Response Procedure Tolerated Well [See Physician Procedure note for Specifics] Pain Scale: 0-10 Numeric [Pain] -Is Patient Pain Free? Yes Musculoskeletal: Tenderness Neurological: Neuro grossly intact Psych/Mental Status: Normal Affect, Appropriate Debridement Note Post-Debridement Measurements/Treatment WC - Nurse 2 - General Ulcer CM Notes Start: 12/20/19 14:11 Freq: Status: Active Protocol: Activity Type Activity Date Activity User E-Sign Co-Sign Detail Recorded Client Recorded Date Recorded By Document 12/20/19 14:47 [id number] 12/20/19 14:48 Document 01/03/20 09:46 [id number] 01/03/20 09:47 12/20/19 01/03/20 14:47 09:46 Wound Center Nurse 2 7-right BKA -Time 14:47 09:46 -Correct Patient Yes Yes -Correct Side, Site, Position Yes Yes -Correct Procedure Yes Yes -Procedure Performed Yes Yes -Type of Procedure Debridement Debridement -Clinical Debridement Muscle Subcutaneous -Post Debridement Size (cm) - Length 5.0 4.2 -Post Debridement Size (cm) - Width 3.5 2.8 -Post Debridement Size (cm) - Depth 0.9 0.8 -Total Square Cm 17.50 11.76 -Wound/Ulcer Outcome Not Healed Not Healed -Ulcer Cleansing Rinsed/ Rinsed/ Irrigated with Irrigated with Saline Saline -Foul Odor after Cleansing No No -Bioengineered Tissue No No -Bleeding Controlled with Pressure Pressure -Offloading No No -Treatment Response Procedure Procedure Tolerated Well Tolerated Well Pain Scale: 0-10 Numeric Is Patient Pain Free? Yes Yes Wound debrided: BKA ulcer Laterality: Right Type of Debridement: Excisional debridement Anesthesia Used: 5% Lidocaine Gel Depth: Down to and including healthy tissue, in the subcutaneous layer Percentage of wound debrided: 100 Instrument Used: 5mm curette Tissue Removed: Subcutaneous tissue into the muscle with bone exposure Severity: Fat Layer Exposed Amount of bleeding with debridement: Mild Bleeding Controlled with: Pressure Patient tolerated procedure well Assessment/Plan Assessment: 1. Traumatic infected hematoma right BKA stump. 2. Diabetes mellitus- uncontrolled. 3. PVD. 4. Smoker. 5. History of necrotizing infection. 6. Osteomyelitis. Plan: Patient had been having issues with pain and swelling intermittently that she was seen in the office and ended up in the ED for treatment. Surgery 12/07/19- 1. Surgical preparation right BKA stump with incision and drainage and excisional debridement infected hematoma (19.25 cm2). 2. Partial ostectomy tibia for osteomyelitis. Operative bone culture and tissue culture from 12/07/19 both positive for Staphylococcus aureaus. She is on Doxycycline. Wound care- VAC. [facility] [place] [facility] wound VAC changes. She is having increased pain, especially with the wound VAC. Her HgA1c is 10.5 from 12/07/19 and Prealbumin was 14. Renewed Percocet (14). Valium (14). PDMP reviewed. Operative culture showed Staphylococcus aureus in both the soft tissue and bone. She was placed on Doxycycline and will continue them. The Pathology was positive for acute osteomyelitis. Her Prealbumin from 12/29/18 was 15.0. Encourage nutritional supplementation with protein to help the healing process. Encouraged the patient to stop smoking as it may have deleterious effects on wound healing. [id number]
--- NOTE | 2020-01-06 11:25 | WC ---
Wound Measurements and notes dated 01/03/20 sent to [facility] via fax [phone]
== END 2020-01-06 23:59 ==
LOC: WC 09:00
PROVIDERS: Family Provider Internal Medicine; PCP Internal Medicine; Visit Provider Surgery
DX: T87.43 Infection of amputation stump, right lower extremity (principal); E11.622 Type 2 diabetes mellitus with other skin ulcer; L97.816 Non-pressure chronic ulcer of other part of right lower leg with bone involvement without evidence of necrosis; E11.69 Type 2 diabetes mellitus with other specified complication; M86.9 Osteomyelitis, unspecified; E11.51 Type 2 diabetes mellitus with diabetic peripheral angiopathy without gangrene; Z89.511 Acquired absence of right leg below knee; F41.9 Anxiety disorder, unspecified; F32.9 Major depressive disorder, single episode, unspecified; I10 Essential (primary) hypertension; F17.200 Nicotine dependence, unspecified, uncomplicated; E78.5 Hyperlipidemia, unspecified; Z79.82 Long term (current) use of aspirin; Z79.4 Long term (current) use of insulin; Z79.899 Other long term (current) drug therapy
CPT/HCPCS: 11042; 11043; 97605; 99213; G0463

== ENCOUNTER 2020-01-17 09:44 | Outpatient (RCR) | payer MEDICARE, MEDICAID, SELFPAY ==
[2020-01-07 00:03] VITALS: BP 109/64; PULSE 94; RESP 18; TEMP 36.1; O2SAT 99
[2020-01-17 13:16] VITALS: BP 141/71; PULSE 78; RESP 18; TEMP 36.1; BMI 30.9
--- NOTE | 2020-01-17 14:52 | PN.PCM_ITS ---
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 Code(s): T87.89 - Other complications of amputation stump; L97.919 - Non-pressure chronic ulcer of unspecified part of right lower leg with unspecified severity (2) Hematoma of amputation stump of right lower extremity Status: Acute Code(s): T87.89 - Other complications of amputation stump (3) History of osteomyelitis Status: Chronic Code(s): Z87.39 - Personal history of other diseases of the musculoskeletal system and connective tissue (4) Smoker Status: Chronic Code(s): F17.200 - Nicotine dependence, unspecified, uncomplicated (5) 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 Status: Chronic Code(s): T87.89 - Other complications of amputation stump; M79.604 - Pain in right leg Comment: right BKA (6) Hx of right BKA Status: Chronic Code(s): Z89.511 - Acquired absence of right leg below knee Comment: 1. Surgical preparation anterior aspect right BKA stump with excisional debridement nonhealing painful ulcer. 2. Partial ostectomy tibia for osteomyelitis. 3. 3 cm complex secondary wound closure - 06/11/19 1. 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 2. Partial ostectomy tibia for osteomyelitis. 3. Complex secondary wound closure revision reconstruction - 12/28/18 (7) PVD (peripheral vascular disease) Status: Chronic Code(s): I73.9 - Peripheral vascular disease, unspecified Type of Wound Date of Service: 01/17/20 Chief Complaint: Infected diabeted wound right BKA stump. History of Wound: Patient had been having issues with pain and swelling intermittently that she was seen in the office and ended up in the ED for treatment. Surgery 12/07/19- 1. Surgical preparation right BKA stump with incision and drainage and excisional debridement infected hematoma (19.25 cm2). 2. Partial ostectomy tibia for osteomyelitis. Bone culture and tissue culture from 12/07/19 both positive for Staphylococcus aureaus. Wound care- VAC. She is having increased pain with the wound VAC so will take a woud VAC holiday for one week and have home health restart her VAC next Friday01/24/20. She will do daily Aquace Ag to the ulcer and wear JOSE D wrap for compression. She is having increased pain, especially with the wound VAC. Her HgA1c is 10.5 from 12/07/19 and Prealbumin was 14. She denies fever today and states her appetite is ok. Surgery 06/11/19 - surgical preparation anterior aspect right BKA stump with excisional debridement non healing painful ulcer and partial ostectomy tibia fro osteomyelitis and 3 cm complex secondary wound closure. Operative culture from 06/11/19 - soft tissue - Staphylococcus aureus, bone - Staphylococcus aureus. She was discharged on Doxycycline. Pathology - positive for acute osteomyelitis. Prealbumin from 12/29/18 was 15.0. MRI from 12/01/18 showed small rim-enhancing abscess at the anterior lateral subcutaneous tissues. Below-knee amputation without acute osteomyelitis. Mild medial and lateral compartment cartilage loss. Tiny popliteal cyst. Muscle atrophy. Today she denies fever. Her appetite is ok. Progress of Wound: Stable. Increased pain with VAC at the area of exposed bone. Will take a wound VAC holiday for a week. - Physical Exam Vital Signs Temp Pulse Resp BP Pulse Ox 97 F L 78 18 141/71 H 99 01/17/20 13:16 01/17/20 13:16 01/17/20 13:16 01/17/20 13:16 01/07/20 00:03 General: Alert, Oriented x3 HEENT: Atraumatic Oral: Moist Mucosa Lungs: Normal air movement Cardiovascular: Regular rate Abdomen: Obese Extremities: Capillary Refill Less than 3 Seconds, Edema, Tenderness Skin: Ulcer/ Wound - Right BKA stump ulcer with exposed bone. Wound Measurements and Assessment WC - Nurse 1 - General Ulcer Measurement Start: 01/17/20 13:16 Freq: Status: Active Protocol: Activity Type Activity Date Activity User E-Sign Co-Sign Detail Recorded Client Recorded Date Recorded By Document 01/17/20 13:16 RB [id number] 01/17/20 13:22 RB 01/17/20 13:16 Wound Center Nurse 1 [Ulcer Assessment] 7-right BKA -Combined with other wound No -Current Size (cm) - Length 3.1 -Current Size (cm) - Width 2 -Current Size (cm) - Depth 1 -Total Square Cm 6.2 -Tunneling No -Undermining/Tunneling No -Circular Undermining No -Exudate Amt Small -Exudate Type Serosanguineous -Wound Margin Thickened & Rolled Under -Granulation Amt Medium (34-66%) -Granulation Quality [place] -Slough/Fibrin Yes -Necrosis Amt Small (1-33%) -Necrotic Tissue Type Adherent Slough -Structure Exposed Bone -Texture (Love-wound Skin Appearance) Assessed -Moisture (Love-wound Skin Appearance Maceration ) -Color (Love-wound Skin Appearance) Assessed -Temperature (Love-wound Skin No Abnormality Appearance) (Pt Warm) -Tenderness on Palpation (Love-wound No Skin Appearance) -Ulcer Cleansing Wound Cleanser -Foul Odor after Cleansing No -Anesthetic Used 4% Lidocaine Solution WC - Nurse 2 - General Ulcer CM Notes Start: 01/17/20 13:16 Freq: Status: Active Protocol: Activity Type Activity Date Activity User E-Sign Co-Sign Detail Recorded Client Recorded Date Recorded By Document 01/17/20 13:36 SHAYNA [id number] 01/17/20 13:37 SHAYNA 01/17/20 13:36 Wound Center Nurse 2 [Procedure/Treatment] -Time 13:36 -Correct Patient Yes -Correct Side, Site, Position Yes -Correct Procedure Yes -Procedure Performed Yes -Type of Procedure Debridement -Clinical Debridement Muscle -Post Debridement Size (cm) - Length 3.0 -Post Debridement Size (cm) - Width 2.0 -Post Debridement Size (cm) - Depth 0.7 -Total Square Cm 6.00 -Wound/Ulcer Outcome Not Healed -Ulcer Cleansing Rinsed/ Irrigated with Saline -Foul Odor after Cleansing No -Bioengineered Tissue No -Bleeding Controlled with Pressure -Offloading No -Treatment Response Procedure Tolerated Well [See Physician Procedure note for Specifics] Pain Scale: 0-10 Numeric [Pain] -Is Patient Pain Free? Yes Musculoskeletal: Tenderness Neurological: Neuro grossly intact Psych/Mental Status: Normal Affect, Appropriate Debridement Note Post-Debridement Measurements/Treatment WC - Nurse 2 - General Ulcer CM Notes Start: 01/17/20 13:16 Freq: Status: Active Protocol: Activity Type Activity Date Activity User E-Sign Co-Sign Detail Recorded Client Recorded Date Recorded By Document 01/17/20 13:36 SHAYNA [id number] 01/17/20 13:37 01/17/20 13:36 Wound Center Nurse 2 7-right BKA -Time 13:36 -Correct Patient Yes -Correct Side, Site, Position Yes -Correct Procedure Yes -Procedure Performed Yes -Type of Procedure Debridement -Clinical Debridement Muscle -Post Debridement Size (cm) - Length 3.0 -Post Debridement Size (cm) - Width 2.0 -Post Debridement Size (cm) - Depth 0.7 -Total Square Cm 6.00 -Wound/Ulcer Outcome Not Healed -Ulcer Cleansing Rinsed/ Irrigated with Saline -Foul Odor after Cleansing No -Bioengineered Tissue No -Bleeding Controlled with Pressure -Offloading No -Treatment Response Procedure Tolerated Well Pain Scale: 0-10 Numeric Is Patient Pain Free? Yes Wound debrided: BKA stump ulcer Laterality: Right Type of Debridement: Excisional debridement Anesthesia Used: 5% Lidocaine Gel Depth: Down to and including healthy tissue, in the subcutaneous layer, to muscle Percentage of wound debrided: 100 Instrument Used: 5mm curette Tissue Removed: Subcutaneous tissue and slough into the muscle with bone exposure Severity: Fat Layer Exposed Amount of bleeding with debridement: Mild Bleeding Controlled with: Pressure Patient tolerated procedure well Assessment/Plan Assessment: 1. Traumatic infected hematoma right BKA stump. 2. Diabetes mellitus- uncontrolled. 3. PVD. 4. Smoker. 5. History of necrotizing infection. 6. Osteomyelitis. Plan: Patient had been having issues with pain and swelling intermittently that she was seen in the office and ended up in the ED for treatment. Surgery 12/07/19- 1. Surgical preparation right BKA stump with incision and drainage and excisional debridement infected hematoma (19.25 cm2). 2. Partial ostectomy tibia for osteomyelitis. Operative bone culture and tissue culture from 12/07/19 both positive for Staphylococcus aureaus. She is on Doxycycline. Wound care- VAC. She has [facility] [employer] to help with home wound VAC changes. Will take a wound VAC holiday for one week and will use Aquacel - Ag daily until restart wound VAC in one week, where home health can put it back on next Friday01/24/20. She is having increased pain, especially with the wound VAC. Her HgA1c is 10.5 from 12/07/19 and Prealbumin was 14. Renewed Doxycycline. Encouraged increase in protein intake to help with wound healing. Encouraged to stop smoking as it may be detrimental to wound healing. Renewed Percocet (14). PDMP reviewed. Operative culture showed Staphylococcus aureus in both the soft tissue and bone. She was placed on Doxycycline and will continue them. The Pathology was positive for acute osteomyelitis. Her Prealbumin from 12/29/18 was 15.0. Encourage nutritional supplementation with protein to help the healing process. Encouraged the patient to stop smoking as it may have deleterious effects on wound healing. [id number]: [id number] Global Visit
== END 2020-02-06 23:59 ==
LOC: WC 09:44
PROVIDERS: Family Provider Internal Medicine; PCP Internal Medicine; Visit Provider Surgery
DX: E11.622 Type 2 diabetes mellitus with other skin ulcer (principal); L97.816 Non-pressure chronic ulcer of other part of right lower leg with bone involvement without evidence of necrosis; T87.89 Other complications of amputation stump; M79.604 Pain in right leg; E11.51 Type 2 diabetes mellitus with diabetic peripheral angiopathy without gangrene; Z87.39 Personal history of other diseases of the musculoskeletal system and connective tissue; F17.200 Nicotine dependence, unspecified, uncomplicated; Z89.511 Acquired absence of right leg below knee
CPT/HCPCS: 11043

== ENCOUNTER 2020-01-28 00:41 | Emergency (ER) | payer MEDICARE, MEDICAID, SELFPAY ==
[2020-01-28 00:42] VITALS: BP 133/74; PULSE 87; RESP 17; TEMP 36.1; O2SAT 97; BMI 36.6
[2020-01-28] MEDS: oxyCODONE 5 MG Tablet PO (02:14)
[2020-01-28 02:16] LABS: Absolute Lymphocyte Count 1.86 X10^3/uL (0.83-4.51); Absolute Neutrophil Count 3.4 X10^3/uL (2.0-7.7); Basophil# 0.07 X10^3/uL; Basophil% 1.2 % (0-1); Eosinophil# 0.35 X10^3/uL; Eosinophils% 5.8 % (0-5); Hematocrit 39.9 % (37-47); Hemoglobin 13.1 g/dL (12.0-15.0); Lymphocyte # 1.86 X10^3/ul (4.0); Mean Corp Hgb Conc 32.8 g/dL (32-36); Mean Corpuscular Hgb 30.5 pg (27.0-32.0); Mean Corpuscular Volume 92.8 fL (81-99); Mean Platelet Vol. 10.3 fl (6.2-12.0); Monocyte# 0.33 X10^3/uL; Monocyte% 5.5 % (0-10); NRBC Flagged by Analyzer 0 % (0-5); Neutrophil # 3.38 X10^3/uL (2.7-7.7); Neutrophil % 56.3 % (47-70); Platelet Count 270 K/mm3 (150-450); RBC Distribution Width CV 13.9 % (11.6-14.6); RBC Distribution Width SD 47.3 fl (35.1-43.9)
[2020-01-28 02:23] LABS: Anion Gap 5 (5-15); BUN 13 mg/dL (7-18); BUN/Creat Ratio 16.7 RATIO (10-20); Chloride 109 mmol/L (98-107); Creatinine, Serum 0.78 mg/dL (0.55-1.02); EST Glomerular Filtration Rate 84 mL/min (>60); Est Glom Filt Rate - Afr Amer 102 mL/min (>60); Estimated Creatinine Clearance 89.94 ml/min; Glucose 364 mg/dL (74-106); Potassium 4.2 mmol/L (3.5-5.1); Sodium Level 139 mmol/L (136-145)
[2020-01-28 02:24] LABS: D-Dimer Quantitative (DVT/PE) 0.39 FEU/ug/m (0.27-0.49)
[2020-01-28 02:48] VITALS: BP 105/74; PULSE 83; RESP 16; O2SAT 98
--- NOTE | 2020-01-28 03:09 | ED.VISSUMM ---
- ER Visit Summary Date of Service: 01/28/20 Chief Complaint: Right leg pain History of Present Illness: The patient is a 49 F who presents with pain in her right groin and thigh there is been getting progressively worse throughout the day today. Patient describes the pain as burning and stabbing. Patient states the pain is worse with movement. Patient admits to some weakness due to the pain. Patient denies any fevers or chills. Patient states she has concerned over possible blood clot since she has had blood clots in her leg in the past which caused her to have a below the knee amputation. Physical Examination: Vital signs are stable. Patient is afebrile. Patient is in no acute distress. Oral mucosa is pink and moist. Neck is supple. Trachea is midline. There is no JVD. Heart was regular rate and rhythm. Lungs are clear and equal bilaterally. Abdomen is soft. Bowel sounds are normal. There is no tenderness. Extremities are intact. There is no edema. There is some mild tenderness over the right medial thigh. There is no erythema or warmth. There is full range of motion of the right lower extremity. Test Results: CBC, basic metabolic profile, and d-dimer were obtained and were all within normal limits. Emergency Department Course and Treatment: Patient was given a dose of oxycodone here. Patient was advised that her blood work does not show any evidence of blood clots. Patient was instructed to keep her leg elevated. Patient was instructed to follow-up with her primary care physician in 5 to 7 days. Patient understood and was agreeable with the plan. All questions were answered. Disposition: Discharge home Impression: Right leg pain This note was generated with [employer] dictation software. It may contain incorrect words, spelling, and punctuation that were not noted in review of the chart prior to signing ED Disposition - Plan for ED Patient: Disposition: Home or Assisted Living Diagnosis: Right leg pain Instructions: ED Acute Pain [facility] Referrals: Sasha Rodriguez MD [Primary Care Provider] - 3-5 Days
[2020-01-28 03:14] VITALS: BP 103/77; PULSE 75; RESP 17; O2SAT 98
== END 2020-01-28 03:17 | disposition home or self-care (01) ==
PROVIDERS: Emergency Provider Emergency Medicine; PCP Internal Medicine
DX: M79.651 Pain in right thigh (principal); Z89.511 Acquired absence of right leg below knee
CPT/HCPCS: 80048; 85025; 85379; 99284

== ENCOUNTER 2020-03-06 12:30 | Outpatient (RCR) | payer MEDICARE, MEDICAID, SELFPAY ==
[2020-02-07 00:17] VITALS: BP 141/71; PULSE 78; RESP 18; TEMP 36.1; O2SAT 99
[2020-02-07 12:58] VITALS: BP 102/77; PULSE 100; RESP 22; TEMP 36.4; BMI 36.6
--- NOTE | 2020-02-07 13:48 | PN.PCM_ITS ---
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 Code(s): T87.89 - Other complications of amputation stump; L97.919 - Non-pressure chronic ulcer of unspecified part of right lower leg with unspecified severity (3) Infection of amputation stump, right lower extremity Status: Chronic Code(s): T87.43 - Infection of amputation stump, right lower extremity (4) Smoker Status: Chronic Code(s): F17.200 - Nicotine dependence, unspecified, uncomplicated (5) 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 Status: Chronic Code(s): T87.89 - Other complications of amputation stump; M79.604 - Pain in right leg Comment: right BKA (6) DM2 (diabetes mellitus, type 2) Status: Chronic Code(s): E11.9 - Type 2 diabetes mellitus without complications Type of Wound Date of Service: 02/07/20 Chief Complaint: Infected diabeted wound right BKA stump. History of Wound: Patient had been having issues with pain and swelling intermittently that she was seen in the office and ended up in the ED for treatment. Surgery 12/07/19- 1. Surgical preparation right BKA stump with incision and drainage and excisional debridement infected hematoma (19.25 cm2). 2. Partial ostectomy tibia for osteomyelitis. Bone culture and tissue culture from 12/07/19 both positive for Staphylococcus aureaus. Wound care- VAC. She is having increased pain with the wound VAC so will take a woud VAC holiday for one week and have home health restart her VAC next Friday. She will do daily Aq uacel Ag to the ulcer and wear JOSE D wrap for compression. Her HgA1c is 10.5 from 12/07/19 and Prealbumin was 14. She denies fever today and states her appetite is ok. Surgery 06/11/19 - surgical preparation anterior aspect right BKA stump with excisional debridement non healing painful ulcer and partial ostectomy tibia fro osteomyelitis and 3 cm complex secondary wound closure. Operative culture from 06/11/19 - soft tissue - Staphylococcus aureus, bone - Staphylococcus aureus. She was discharged on Doxycycline. Pathology - positive for acute osteomyelitis. Prealbumin from 12/29/18 was 15.0. MRI from 12/01/18 showed small rim-enhancing abscess at the anterior lateral subcutaneous tissues. Below-knee amputation without acute osteomyelitis. Mild medial and lateral compartment cartilage loss. Tiny popliteal cyst. Muscle atrophy. Today she denies fever. Her appetite is ok. Progress of Wound: Stable. Increased pain with VAC at the area of exposed bone. Will take a wound VAC holiday for a week. - Physical Exam Vital Signs Temp Pulse Resp BP Pulse Ox 97.6 F L 100 22 H 102/77 99 02/07/20 12:58 02/07/20 12:58 02/07/20 12:58 02/07/20 12:58 02/07/20 00:17 General: Alert, Oriented x3, Cooperative HEENT: Atraumatic Oral: Moist Mucosa Neck: Supple Lungs: Normal air movement Cardiovascular: Regular rate Extremities: Capillary Refill Less than 3 Seconds, Edema Skin: Ulcer/ Wound - Right BKA ulcer that is extremely painful to palpation. Bone is exposed. Wound Measurements and Assessment WC - Nurse 1 - General Ulcer Measurement Start: 02/07/20 12:58 Freq: Status: Active Protocol: Activity Type Activity Date Activity User E-Sign Co-Sign Detail Recorded Client Recorded Date Recorded By Document 02/07/20 12:58 DL [id number] 02/07/20 13:04 DL 02/07/20 12:58 Wound Center Nurse 1 [Ulcer Assessment] 7-right BKA -Current Size (cm) - Length 2.8 -Current Size (cm) - Width 1.6 -Current Size (cm) - Depth 0.5 -Total Square Cm 4.48 -Photo Taken No -Exudate Amt Small -Granulation Amt Large (67-100%) -Granulation Quality [place] -Necrosis Amt Small (1-33%) -Necrotic Tissue Type Adherent Slough -Structure Exposed Bone -Texture (Love-wound Skin Appearance) Scarring -Moisture (Love-wound Skin Appearance No Abnormality ) -Color (Love-wound Skin Appearance) Rubor -Temperature (Love-wound Skin No Abnormality Appearance) (Pt Warm) -Tenderness on Palpation (Love-wound No Skin Appearance) -Ulcer Cleansing Rinsed/ Irrigated with Saline -Foul Odor after Cleansing No -Anesthetic Used 4% Lidocaine Solution,5% Lidocaine Gel Musculoskeletal: Tenderness Neurological: Neuro grossly intact Psych/Mental Status: Appropriate Debridement Note Wound debrided: BKA stump ulcer Laterality: Right Type of Debridement: Excisional debridement Anesthesia Used: 5% Lidocaine Gel Depth: Down to and including healthy tissue, in the subcutaneous layer, to muscle Percentage of wound debrided: 100 Instrument Used: 5mm curette Tissue Removed: Subcutaneous tissue and slough into the muscle. Severity: Fat Layer Exposed Amount of bleeding with debridement: Mild Bleeding Controlled with: Pressure Patient tolerated procedure well Assessment/Plan Assessment: 1. Traumatic infected hematoma right BKA stump. 2. Diabetes mellitus- uncontrolled. 3. PVD. 4. Smoker. 5. History of necrotizing infection. 6. Osteomyelitis. Plan: Patient had been having issues with pain and swelling intermittently that she was seen in the office and ended up in the ED for treatment. Surgery 12/07/19- 1. Surgical preparation right BKA stump with incision and drainage and excisional debridement infected hematoma (19.25 cm2). 2. Partial ostectomy tibia for osteomyelitis. Operative bone culture and tissue culture from 12/07/19 both positive for Staphylococcus aureaus. She is on Doxycycline. Wound care- VAC. She has [facility] [employer] to help with home wound VAC changes. Will take a wound VAC holiday for one week and will use Aquacel - Ag daily until restart wound VAC in one week, where home health can put it back on next Friday. Her HgA1c is 10.5 from 12/07/19 and Prealbumin was 14. Encouraged increase in protein intake to help with wound healing. Encouraged to stop smoking as it may be detrimental to wound healing. Pain management is now managing her pain medications. Operative culture showed Staphylococcus aureus in both the soft tissue and bone. She was placed on Doxycycline and will continue them. The Pathology was positive for acute osteomyelitis. Her Prealbumin from 12/29/18 was 15.0. Encourage nutritional supplementation with protein to help the healing process. Encouraged the patient to stop smoking as it may have deleterious effects on wound healing. [id number]: [id number] Global Visit
[2020-02-21 13:17] VITALS: BP 131/77; PULSE 99; RESP 22; TEMP 36.6; BMI 36.6
--- NOTE | 2020-02-21 14:50 | PCM.WC.PN ---
Type of Wound Date of Service: 02/21/20 Chief Complaint: Nohealing infected diabetic ulcer anterior aspect right BKA stump. History of Wound: Surgery 12/07/19 - 1. Surgical preparation right BKA stump with incision and drainage and excisional debridement infected hematoma (19.25 cm2). 2. Partial ostectomy tibia for osteomyelitis. Wound care- VAC. Operative bone culture and tissue culture from 12/07/19 showed Staphylococcus aureus. Pathology was negative for osteomyelitis. Pathology from 06/26 was positive for osteomyelitis. Her HgA1c from 12/07/19 was 10.5. Prealbumin from 12/07/19 was 14. She denies fever today and states her appetite is ok. Progress of Wound: Stable. - Physical Exam Vital Signs Temp Pulse Resp BP Pulse Ox 97.8 F 99 22 H 131/77 H 99 02/21/20 13:17 02/21/20 13:17 02/21/20 13:17 02/21/20 13:17 02/07/20 00:17 Wound Measurements and Assessment WC - Nurse 1 - General Ulcer Measurement Start: 02/07/20 12:58 Freq: Status: Active Protocol: Activity Type Activity Date Activity User E-Sign Co-Sign Detail Recorded Client Recorded Date Recorded By Document 02/21/20 13:17 DL [id number] 02/21/20 13:24 DL 02/21/20 13:17 Wound Center Nurse 1 [Ulcer Assessment] 7-right BKA -Current Size (cm) - Length 2.2 -Current Size (cm) - Width 1.4 -Current Size (cm) - Depth 0.3 -Total Square Cm 3.08 -Photo Taken No -Exudate Amt Small -Exudate Type Serosanguineous -Wound Margin Distinct, Outline Attached -Granulation Amt Large (67-100%) -Granulation Quality Red -Necrosis Amt Small (1-33%) -Necrotic Tissue Type Adherent Slough -Structure Exposed Bone -Texture (Love-wound Skin Appearance) Scarring -Moisture (Love-wound Skin Appearance No Abnormality ) -Color (Love-wound Skin Appearance) No Abnormality -Temperature (Love-wound Skin No Abnormality Appearance) (Pt Warm) -Tenderness on Palpation (Love-wound No Skin Appearance) -Ulcer Cleansing Wound Cleanser -Foul Odor after Cleansing No -Anesthetic Used 4% Lidocaine Solution,5% Lidocaine Gel WC - Nurse 2 - General Ulcer CM Notes Start: 02/07/20 12:58 Freq: Status: Active Protocol: Activity Type Activity Date Activity User E-Sign Co-Sign Detail Recorded Client Recorded Date Recorded By Document 02/21/20 13:57 SHAYNA [id number] 02/21/20 13:58 02/21/20 13:57 Wound Center Nurse 2 [Procedure/Treatment] -Time 13:58 -Correct Patient Yes -Correct Side, Site, Position Yes -Correct Procedure Yes -Procedure Performed Yes -Type of Procedure Debridement -Clinical Debridement Subcutaneous -Post Debridement Size (cm) - Length 2.2 -Post Debridement Size (cm) - Width 1.5 -Post Debridement Size (cm) - Depth 0.3 -Total Square Cm 3.30 -Wound/Ulcer Outcome Not Healed -Ulcer Cleansing Rinsed/ Irrigated with Saline -Foul Odor after Cleansing No -Bioengineered Tissue No -Bleeding Controlled with Pressure -Offloading No -Treatment Response Procedure Tolerated Well [See Physician Procedure note for Specifics] Pain Scale: 0-10 Numeric [Pain] -Is Patient Pain Free? Yes Debridement Note Post-Debridement Measurements/Treatment WC - Nurse 2 - General Ulcer CM Notes Start: 02/07/20 12:58 Freq: Status: Active Protocol: Activity Type Activity Date Activity User E-Sign Co-Sign Detail Recorded Client Recorded Date Recorded By Document 02/07/20 16:09 DEYANIRA [id number] 02/07/20 16:10 PL Document 02/21/20 13:57 SHAYNA [id number] 02/21/20 13:58 02/07/20 02/21/20 16:09 13:57 Wound Center Nurse 2 7-right BKA -Time 13:33 13:58 -Correct Patient Yes Yes -Correct Side, Site, Position Yes Yes -Correct Procedure Yes Yes -Procedure Performed Yes Yes -Type of Procedure Debridement Debridement -Clinical Debridement Subcutaneous Subcutaneous -Post Debridement Size (cm) - Length 2.8 2.2 -Post Debridement Size (cm) - Width 2 1.5 -Post Debridement Size (cm) - Depth 1.0 0.3 -Total Square Cm 5.6 3.30 -Wound/Ulcer Outcome Not Healed Not Healed -Ulcer Cleansing Rinsed/ Rinsed/ Irrigated with Irrigated with Saline Saline -Foul Odor after Cleansing No No -Bioengineered Tissue No -Bleeding Controlled with Pressure Pressure -Offloading No -Treatment Response Procedure Procedure Tolerated Well Tolerated Well Pain Scale: 0-10 Numeric Is Patient Pain Free? Yes Wound debrided: #7 Right BKA stump. Laterality: Right Wound Grade/Stage: 4. Type of Debridement: Excisional debridement Anesthesia Used: 4% Lidocaine Solution Depth: Down to and including healthy tissue, in the subcutaneous layer, to bone - bone is exposed but not debrided. Percentage of wound debrided: 100 Instrument Used: 3mm curette Tissue Removed: subcutaneous tissue. Severity: Fat Layer Exposed - bone is exposed but not debrided. Amount of bleeding with debridement: Mild Bleeding Controlled with: Pressure Patient tolerated procedure well, - - a wound culture was obtained today. Assessment/Plan Assessment: 1. Traumatic infected hematoma right BKA stump. 2. Diabetes. 3. PVD. 4. Nonhealing infected diabetic ulcer anterior aspect right BKA stump. 5. History of necrotizing. 6. History of osteomyelitis. 7. Smoker. 8. s/p surgical preparation right BKA stump with incision and drainage and excisional debridement infected hematoma (19.25 cm2) and partial ostectomy tibia for osteomyelitis. Plan: There is bone exposed at the base of the ulcer. Will stop the VAC and begin Silver dressing changes daily. A wound culture was done. A positive culture will necessitate antibiotic therapy. Operative bone culture and tissue culture from 12/07/19 showed Staphylococcus aureaus. She is on Doxycycline. Her HgA1c is 10.5 from 12/07/19 and Prealbumin was 14. Encouraged increase in protein intake to help with wound healing. Pain management is now managing her pain medications. Encouraged the patient to stop smoking as it may have deleterious effects on wound healing. Followup 2 weeks. [id number]: [id number] Global Visit - ICD-10 - Z48.89, T87.89, E11.9, I73.9, Z87.39, F17.200
[2020-02-22 14:52] LABS: M R Staph aureus DNA By PCR Negative (Negative); Probe Check PASS; Specimen Processing Control PASS; Staph aureus DNA By PCR NEGATIVE (Negative)
--- NOTE | 2020-02-29 13:19 | WC ---
Lacey Hogue [employer] called in ATB for patient to patients pharmacy. This nurse filled out RX slip and put in patients chart waiting for Lacey's signature. Patient informed.
[2020-03-06 13:36] VITALS: BP 139/73; PULSE 93; RESP 18; TEMP 36.6; BMI 36.6
--- NOTE | 2020-03-06 15:51 | PCM.WC.PN ---
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 Current Visit: Yes Code(s): T87.89 - Other complications of amputation stump; L97.919 - Non-pressure chronic ulcer of unspecified part of right lower leg with unspecified severity (3) History of osteomyelitis Status: Chronic Current Visit: Yes Code(s): Z87.39 - Personal history of other diseases of the musculoskeletal system and connective tissue (4) Infection of amputation stump, right lower extremity Status: Chronic Current Visit: Yes Code(s): T87.43 - Infection of amputation stump, right lower extremity (5) Smoker Status: Chronic Current Visit: Yes Code(s): F17.200 - Nicotine dependence, unspecified, uncomplicated (6) 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 Status: Chronic Current Visit: Yes Code(s): T87.89 - Other complications of amputation stump; M79.604 - Pain in right leg Comment: right BKA (7) DM2 (diabetes mellitus, type 2) Status: Chronic Current Visit: Yes Code(s): E11.9 - Type 2 diabetes mellitus without complications Type of Wound Date of Service: 03/06/20 Chief Complaint: Nohealing infected diabetic ulcer anterior aspect right BKA stump. History of Wound: Surgery 12/07/19 - 1. Surgical preparation right BKA stump with incision and drainage and excisional debridement infected hematoma (19.25 cm2). 2. Partial ostectomy tibia for osteomyelitis. Wound care- Wound VAC was stopped at the last visit and she has been using silver. Will start doing moistened silver daily. She would benefit from an advanced wound healing product to help get her ulcer healed along with trying to get coverage over the exposed bone. Will apply for Epicord/Epifix because that has data that it can be used to help cover exposed bone. Operative bone culture and tissue culture from 12/07/19 showed Staphylococcus aureus. Pathology was negative for osteomyelitis. Pathology from 06/26 was positive for osteomyelitis. Her HgA1c from 12/07/19 was 10.5. Prealbumin from 12/07/19 was 14. She denies fever today and states her appetite is ok. Progress of Wound: Stable. - Physical Exam Vital Signs Temp Pulse Resp BP Pulse Ox 97.8 F 93 18 139/73 H 99 03/06/20 13:36 03/06/20 13:36 03/06/20 13:36 03/06/20 13:36 02/07/20 00:17 General: Alert, Oriented x3, Cooperative HEENT: Atraumatic Oral: Moist Mucosa Lungs: Normal air movement Cardiovascular: Regular rate Extremities: Capillary Refill Less than 3 Seconds Skin: Ulcer/ Wound - Right BKA ulcer with bone exposure. Wound Measurements and Assessment WC - Nurse 1 - General Ulcer Measurement Start: 02/07/20 12:58 Freq: Status: Active Protocol: Activity Type Activity Date Activity User E-Sign Co-Sign Detail Recorded Client Recorded Date Recorded By Document 03/06/20 13:36 [id number] 03/06/20 13:39 03/06/20 13:36 Wound Center Nurse 1 [Ulcer Assessment] 7-right BKA -Combined with other wound No -Current Size (cm) - Length 1.5 -Current Size (cm) - Width 0.4 -Current Size (cm) - Depth 0.3 -Total Square Cm 0.60 -Photo Taken No -Exudate Amt Small -Exudate Type Serosanguineous -Wound Margin Distinct, Outline Attached -Granulation Amt Small (1-33%) -Granulation Quality Pale -Necrosis Amt Large (67-100%) -Necrotic Tissue Type Adherent Slough -Structure Exposed Bone -Texture (Love-wound Skin Appearance) Scarring -Moisture (Love-wound Skin Appearance No Abnormality ) -Color (Love-wound Skin Appearance) Rubor -Temperature (Love-wound Skin No Abnormality Appearance) (Pt Warm) -Tenderness on Palpation (Love-wound Yes Skin Appearance) -Ulcer Cleansing Wound Cleanser -Foul Odor after Cleansing No -Anesthetic Used 4% Lidocaine Solution [Edema Assessment] -Lower Limb Edema Present NA WC - Nurse 2 - General Ulcer CM Notes Start: 02/07/20 12:58 Freq: Status: Active Protocol: Activity Type Activity Date Activity User E-Sign Co-Sign Detail Recorded Client Recorded Date Recorded By Document 03/06/20 13:48 [id number] 03/06/20 13:51 03/06/20 13:48 Wound Center Nurse 2 [Procedure/Treatment] 7-right BKA -Time 13:49 -Correct Patient Yes -Correct Side, Site, Position Yes -Correct Procedure Yes -Procedure Performed Yes -Type of Procedure Debridement -Clinical Debridement Subcutaneous -Post Debridement Size (cm) - Length 1.5 -Post Debridement Size (cm) - Width 1.0 -Post Debridement Size (cm) - Depth 0.6 -Total Square Cm 1.50 -Wound/Ulcer Outcome Not Healed -Ulcer Cleansing Rinsed/ Irrigated with Saline -Foul Odor after Cleansing No -Bioengineered Tissue No -Bleeding Controlled with Pressure -Offloading Yes -Type of Offloading Knee Walker -Treatment Response Procedure Tolerated Well [See Physician Procedure note for Specifics] Pain Scale: 0-10 Numeric [Pain] -Is Patient Pain Free? Yes Musculoskeletal: Tenderness - Extreme sensitivity to the ulcer where the bone is exposed. Neurological: Neuro grossly intact Psych/Mental Status: Normal Affect, Appropriate Debridement Note Post-Debridement Measurements/Treatment WC - Nurse 2 - General Ulcer CM Notes Start: 02/07/20 12:58 Freq: Status: Active Protocol: Activity Type Activity Date Activity User E-Sign Co-Sign Detail Recorded Client Recorded Date Recorded By Document 02/07/20 16:09 [id number] 02/07/20 16:10 Document 02/21/20 13:57 [id number] 02/21/20 13:58 Document 03/06/20 13:48 [id number] 03/06/20 13:51 02/07/20 02/21/20 03/06/20 16:09 13:57 13:48 Wound Center Nurse 2 7-right BKA -Time 13:33 13:58 13:49 -Correct Patient Yes Yes Yes -Correct Side, Site, Position Yes Yes Yes -Correct Procedure Yes Yes Yes -Procedure Performed Yes Yes Yes -Type of Procedure Debridement Debridement Debridement -Clinical Debridement Subcutaneous Subcutaneous Subcutaneous -Post Debridement Size (cm) - Length 2.8 2.2 1.5 -Post Debridement Size (cm) - Width 2 1.5 1.0 -Post Debridement Size (cm) - Depth 1.0 0.3 0.6 -Total Square Cm 5.6 3.30 1.50 -Wound/Ulcer Outcome Not Healed Not Healed Not Healed -Ulcer Cleansing Rinsed/ Rinsed/ Rinsed/ Irrigated with Irrigated with Irrigated with Saline Saline Saline -Foul Odor after Cleansing No No No -Bioengineered Tissue No No -Bleeding Controlled with Pressure Pressure Pressure -Offloading No Yes -Type of Offloading Knee Walker -Treatment Response Procedure Procedure Procedure Tolerated Well Tolerated Well Tolerated Well Pain Scale: 0-10 Numeric Is Patient Pain Free? Yes Yes Wound debrided: BKA ulcer Laterality: Right Type of Debridement: Excisional debridement Anesthesia Used: 5% Lidocaine Gel Depth: Down to and including healthy tissue, in the subcutaneous layer Percentage of wound debrided: 100 Instrument Used: 3mm curette Tissue Removed: Subcutaneous tissue and slough Severity: Fat Layer Exposed Amount of bleeding with debridement: Mild Bleeding Controlled with: Pressure Patient tolerated procedure well Assessment/Plan Active Problems (Last Reviewed 12/07/19 @ 10:[address] 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 Traumatic infected hematoma right BKA stump. 2. Diabetes. 3. PVD. 4. Nonhealing infected diabetic ulcer anterior aspect right BKA stump. 5. History of necrotizing. 6. History of osteomyelitis. 7. Smoker. 8. s/p surgical preparation right BKA stump with incision and drainage and excisional debridement infected hematoma (19.25 cm2) and partial ostectomy tibia for osteomyelitis. Plan: There is bone exposed at the base of the ulcer. Wound care- Wound VAC was stopped at the last visit and she has been using silver. Will start doing moistened silver daily. She would benefit from an advanced wound healing product to help get her ulcer healed along with trying to get coverage over the exposed bone. Will apply for Epicord/Epifix because that has data that it can be used to help cover exposed bone. A wound culture was done on 02/21/20 which was positive for Enterococcus faecalis. She was started on Augmentin, after a couple days she was experiencing severe heartburn and upset stomach. She was instructed to stop it for a couple days and start taking a probiotic and restart it after a couple days. She has restarted it and is tolerating it with the probiotic. Operative bone culture and tissue culture from 12/07/19 showed Staphylococcus aureaus. She is on Doxycycline. Her HgA1c is 10.5 from 12/07/19 and Prealbumin was 14. Encouraged increase in protein intake to help with wound healing. Pain management is now managing her pain medications. Encouraged the patient to stop smoking as it may have deleterious effects on wound healing. Followup 2 weeks. [id number]: [id number] Global Visit
== END 2020-03-07 23:59 ==
LOC: WC 12:30
PROVIDERS: Family Provider Internal Medicine; PCP Internal Medicine; Visit Provider Surgery
DX: E11.622 Type 2 diabetes mellitus with other skin ulcer (principal); L97.909 Non-pressure chronic ulcer of unspecified part of unspecified lower leg with unspecified severity; L97.919 Non-pressure chronic ulcer of unspecified part of right lower leg with unspecified severity; T87.43 Infection of amputation stump, right lower extremity; M79.604 Pain in right leg; E11.51 Type 2 diabetes mellitus with diabetic peripheral angiopathy without gangrene; Z87.39 Personal history of other diseases of the musculoskeletal system and connective tissue; Z89.511 Acquired absence of right leg below knee; F17.200 Nicotine dependence, unspecified, uncomplicated; Y83.5 Amputation of limb(s) as the cause of abnormal reaction of the patient, or of later complication, without mention of misadventure at the time of the procedure; B95.2 Enterococcus as the cause of diseases classified elsewhere
CPT/HCPCS: 11042; 87070; 87075; 87077; 87186; 87205; 87640; 99212; G0463

== ENCOUNTER → 2020-03-16 | Outpatient (CLI) | payer MEDICARE, MEDICAID, SELFPAY ==
[2020-03-16 15:24] VITALS: BMI 36.6
[2020-03-23 14:27] LABS: HPV APTIMA, High Risk Negative (Negative)
== END | disposition home or self-care (01) ==
LOC: LABSPEC 16:34
PROVIDERS: PCP Internal Medicine; Referring Provider Nurse Practitioner Women's Health; Visit Provider Nurse Practitioner Women's Health
DX: Z12.4 Encounter for screening for malignant neoplasm of cervix (principal)
CPT/HCPCS: 87624; 88175; G0145

== ENCOUNTER → 2020-03-31 14:01 | Outpatient (CLI) | payer MEDICARE, MEDICAID, SELFPAY ==
[2020-03-20 10:59] VITALS: BMI 36.6
[2020-03-27 10:41] VITALS: BMI 36.6
--- NOTE | 2020-03-31 14:02 | BI_ITS ---
MAMMOGRAPHY - BILATERAL SCREENING REASON FOR EXAM: Female, 49 years old. Routine annual screening examination. PERTINENT HISTORY: Non-contributory. TECHNIQUE: Digital bilateral breast jordyn (3D mammographic acquisition) in the CC and MLO projections. 2-D mediolateral oblique (MLO) and craniocaudad (CC) views of both breasts were obtained. CAD: Full Field Digital Mammography with Computer Added Detection was performed. COMPARISON: Comparison is made with prior examination dated 12/23/2014. FINDINGS: Breast Composition: There are scattered areas of fibroglandular density. There are no dominant masses or suspicious calcifications. Stable small benign appearing bilateral axillary lymph nodes. No other significant abnormalities are identified. There has been no significant change since the prior study. BI/SCREEN MAMM (CAD) W/JORDYN BILAT IMPRESSION: Stable bilateral screening mammogram. Yearly follow-up mammogram recommended. (A) ASSESSMENT CATEGORY: BIRADS Category 2: Benign. A letter regarding these results will be sent to the patient by the facility within 30 days. Approximately 10% of breast cancers are not detected by mammography. A normal mammogram should not delay biopsy of a clinically suspicious abnormality. [id number] Electronically Signed: Dexter Morton, at 15:01 EDT , Service support ,
== END ==
PROVIDERS: PCP Internal Medicine; Referring Provider Nurse Practitioner Women's Health; Visit Provider Nurse Practitioner Women's Health
DX: Z12.31 Encounter for screening mammogram for malignant neoplasm of breast (principal)
CPT/HCPCS: 77063; 77067

== ENCOUNTER 2020-04-03 10:30 | Outpatient (RCR) | payer MEDICARE, MEDICAID, SELFPAY ==
[2020-03-08 00:18] VITALS: BP 139/73; PULSE 93; RESP 18; TEMP 36.6; O2SAT 99
[2020-03-16 15:24] VITALS: BMI 36.6
[2020-03-20 10:59] VITALS: BP 139/79; PULSE 107; RESP 18; TEMP 37.3; BMI 36.6
--- NOTE | 2020-03-20 15:40 | PCM.WC.PN ---
(1) Diabetic ulcer of lower extremity Status: Chronic Current Visit: Yes Code(s): E11.622 - Type 2 diabetes mellitus with other skin ulcer; L97.909 - Non-pressure chronic ulcer of unspecified part of unspecified lower leg with unspecified severity (2) History of osteomyelitis Status: Chronic Current Visit: Yes Code(s): Z87.39 - Personal history of other diseases of the musculoskeletal system and connective tissue (3) 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 Status: Chronic Current Visit: Yes Code(s): T87.89 - Other complications of amputation stump; M79.604 - Pain in right leg Comment: right BKA (4) Tobacco abuse Status: Chronic Current Visit: Yes Code(s): Z72.0 - Tobacco use (5) Hx of right BKA Status: Chronic Current Visit: Yes Code(s): Z89.511 - Acquired absence of right leg below knee Comment: 1. Surgical preparation anterior aspect right BKA stump with excisional debridement nonhealing painful ulcer. 2. Partial ostectomy tibia for osteomyelitis. 3. 3 cm complex secondary wound closure - 06/11/19 1. 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 2. Partial ostectomy tibia for osteomyelitis. 3. Complex secondary wound closure revision reconstruction - 12/28/18 (6) Chronic pain Status: Chronic Current Visit: Yes Code(s): G89.29 - Other chronic pain (7) DM2 (diabetes mellitus, type 2) Status: Chronic Current Visit: Yes Code(s): E11.9 - Type 2 diabetes mellitus without complications Type of Wound Date of Service: 03/20/20 Chief Complaint: Nohealing infected diabetic ulcer anterior aspect right BKA stump. History of Wound: Surgery 12/07/19 - 1. Surgical preparation right BKA stump with incision and drainage and excisional debridement infected hematoma (19.25 cm2). 2. Partial ostectomy tibia for osteomyelitis. Wound care- Epicord #1 applied today topped with collagen hydrogel and covered with wound veil and steri strips. Operative bone culture and tissue culture from 12/07/19 showed Staphylococcus aureus. Pathology was negative for osteomyelitis. Pathology from 06/26 was positive for osteomyelitis. Her HgA1c from 12/07/19 was 10.5. Prealbumin from 12/07/19 was 14. She denies fever today and states her appetite is ok. Progress of Wound: Stable. - Physical Exam Vital Signs Temp Pulse Resp BP Pulse Ox 99.1 F 107 H 18 139/79 H 99 03/20/20 10:59 03/20/20 10:59 03/20/20 10:59 03/20/20 10:59 03/08/20 00:18 General: Alert, Oriented x3, Cooperative HEENT: Atraumatic Oral: Moist Mucosa Lungs: Normal air movement Cardiovascular: Regular rate Abdomen: Obese Extremities: Capillary Refill Less than 3 Seconds Skin: Ulcer/ Wound - Right BKA stump ulcer with bone exposure. Ulcer is very sensitive to light palpation. Wound Measurements and Assessment WC - Nurse 1 - General Ulcer Measurement Start: 03/20/20 10:59 Freq: Status: Active Protocol: Activity Type Activity Date Activity User E-Sign Co-Sign Detail Recorded Client Recorded Date Recorded By Document 03/20/20 10:59 DV [id number] 03/20/20 11:09 DV 03/20/20 10:59 Wound Center Nurse 1 [Ulcer Assessment] 7-right BKA -Combined with other wound No -Current Size (cm) - Length 1.0 -Current Size (cm) - Width 0.5 -Current Size (cm) - Depth 0.3 -Total Square Cm 0.50 -Photo Taken No -Epithelialization None Present -Tunneling No -Undermining/Tunneling No -Circular Undermining No -Classification - Thickness Full Thickness without Exposed Support Structure -Wound Margin Fibrotic Scar, Thickened Scar -Granulation Amt None Present (0 %) -Granulation Quality N/A -Slough/Fibrin Yes -Necrosis Amt Small (1-33%) -Necrotic Tissue Type Adherent Slough -Structure Exposed None/Limited to Skin Breakdown -Texture (Loev-wound Skin Appearance) Assessed, Localized Edema ,Scarring -Moisture (Love-wound Skin Appearance Assessed,Dry/ ) Scaly -Color (Love-wound Skin Appearance) No Abnormality, Assessed -Temperature (Love-wound Skin No Abnormality Appearance) (Pt Warm) -Tenderness on Palpation (Lvoe-wound Yes Skin Appearance) -Ulcer Cleansing Wound Cleanser -Foul Odor after Cleansing No -Anesthetic Used 5% Lidocaine Gel WC - Nurse 2 - General Ulcer CM Notes Start: 03/20/20 10:59 Freq: Status: Active Protocol: Activity Type Activity Date Activity User E-Sign Co-Sign Detail Recorded Client Recorded Date Recorded By Document 03/20/20 11:50 [id number] 03/20/20 11:51 03/20/20 11:50 Wound Center Nurse 2 [Procedure/Treatment] -Time 11:50 -Correct Patient Yes -Correct Side, Site, Position Yes -Correct Procedure Yes -Procedure Performed Yes -Type of Procedure Debridement -Clinical Debridement Subcutaneous -Post Debridement Size (cm) - Length 1.5 -Post Debridement Size (cm) - Width 0.8 -Post Debridement Size (cm) - Depth 0.5 -Total Square Cm 1.20 -Wound/Ulcer Outcome Not Healed -Ulcer Cleansing Rinsed/ Irrigated with Saline -Foul Odor after Cleansing No -Bioengineered Tissue Yes -Type of bioengineered Tissue EPICORD -Expiration Date 09/08/24 -Product Lot Number [id number] -Percent Used 100 -Saline Lot Number [id number] -Bleeding Controlled with Pressure -Offloading Yes -Type of Offloading Knee Walker -Treatment Response Procedure Tolerated Well [See Physician Procedure note for Specifics] Pain Scale: 0-10 Numeric [Pain] -Is Patient Pain Free? Yes Musculoskeletal: Tenderness Neurological: Cranial nerves II-XII grossly intact Psych/Mental Status: Normal Affect, Appropriate Debridement Note Post-Debridement Measurements/Treatment WC - Nurse 2 - General Ulcer CM Notes Start: 03/20/20 10:59 Freq: Status: Active Protocol: Activity Type Activity Date Activity User E-Sign Co-Sign Detail Recorded Client Recorded Date Recorded By Document 03/20/20 11:50 [id number] 03/20/20 11:51 03/20/20 11:50 Wound Center Nurse 2 7-right BKA -Time 11:50 -Correct Patient Yes -Correct Side, Site, Position Yes -Correct Procedure Yes -Procedure Performed Yes -Type of Procedure Debridement -Clinical Debridement Subcutaneous -Post Debridement Size (cm) - Length 1.5 -Post Debridement Size (cm) - Width 0.8 -Post Debridement Size (cm) - Depth 0.5 -Total Square Cm 1.20 -Wound/Ulcer Outcome Not Healed -Ulcer Cleansing Rinsed/ Irrigated with Saline -Foul Odor after Cleansing No -Bioengineered Tissue Yes -Type of bioengineered Tissue EPICORD -Expiration Date 09/08/24 -Product Lot Number [id number] -Percent Used 100 -Saline Lot Number [id number] -Bleeding Controlled with Pressure -Offloading Yes -Type of Offloading Knee Walker -Treatment Response Procedure Tolerated Well Pain Scale: 0-10 Numeric Is Patient Pain Free? Yes Wound debrided: BKA stump ulcer Laterality: Right Type of Debridement: Excisional debridement Anesthesia Used: 5% Lidocaine Gel Depth: Down to and including healthy tissue, in the subcutaneous layer Percentage of wound debrided: 100 Instrument Used: 3mm curette Tissue Removed: Subcutaneous tissue and slough Severity: Fat Layer Exposed Amount of bleeding with debridement: Mild Bleeding Controlled with: Pressure Patient tolerated procedure well Assessment/Plan Active Problems (Last Updated 03/16/20 @ 07:29 by Shivani Herr NP-C) Diabetic ulcer of lower extremity (Chronic) History of osteomyelitis (Chronic) 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 (Chronic) right BKA Tobacco abuse (Chronic) Hx of right BKA (Chronic) 1. Surgical preparation anterior aspect right BKA stump with excisional debridement nonhealing painful ulcer. 2. Partial ostectomy tibia for osteomyelitis. 3. 3 cm complex secondary wound closure - 06/11/19 1. 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 2. Partial ostectomy tibia for osteomyelitis. 3. Complex secondary wound closure revision reconstruction - 12/28/18 Chronic pain (Chronic) DM2 (diabetes mellitus, type 2) (Chronic) Assessment: 1. Traumatic infected hematoma right BKA stump. 2. Diabetes. 3. PVD. 4. Nonhealing infected diabetic ulcer anterior aspect right BKA stump. 5. History of necrotizing. 6. History of osteomyelitis. 7. Smoker. 8. s/p surgical preparation right BKA stump with incision and drainage and excisional debridement infected hematoma (19.25 cm2) and partial ostectomy tibia for osteomyelitis. Plan: There is bone exposed at the base of the ulcer. Wound care- Epicord #1 applied with saline and topped with collagen hydrogel, covered with adaptic and secured with steri strips. JOSE D wrap for compression. A wound culture was done on 02/21/20 which was positive for Enterococcus faecalis. She was started on Augmentin, after a couple days she was experiencing severe heartburn and upset stomach. She was instructed to stop it for a couple days and start taking a probiotic and restart it after a couple days. She has restarted it and is tolerating it with the probiotic. Operative bone culture and tissue culture from 12/07/19 showed Staphylococcus aureaus. She is on Doxycycline. Her HgA1c is 10.5 from 12/07/19 and Prealbumin was 14. Encouraged increase in protein intake to help with wound healing. Pain management is now managing her pain medications. Encouraged the patient to stop smoking as it may have deleterious effects on wound healing. Followup 1 week. [id number]: [id number] Skin sub graft trnk/arm/leg
[2020-03-27 10:41] VITALS: BP 143/79; PULSE 97; RESP 16; TEMP 36.6; BMI 36.6
--- NOTE | 2020-03-27 10:45 | WC ---
epicord left intact
--- NOTE | 2020-03-27 16:31 | PCM.WC.PN ---
Type of Wound Date of Service: 03/27/20 Chief Complaint: Nohealing infected diabetic ulcer anterior aspect right BKA stump. History of Wound: Surgery 12/07/19 - 1. Surgical preparation right BKA stump with incision and drainage and excisional debridement infected hematoma (19.25 cm2). 2. Partial ostectomy tibia for osteomyelitis. Wound care- EpiCord #1. Operative bone culture and tissue culture from 12/07/19 showed Staphylococcus aureus. She was treated with Doxycycline. Pathology was negative for osteomyelitis. Pathology from 06/26 was positive for osteomyelitis. Her HgA1c from 12/07/19 was 10.5. Prealbumin from 12/07/19 was 14. She denies fever today and states her appetite is ok. Another wound culture was obtained on 02/21/20. It showed Enterococcus faecalis. She was started on Augmentin and has finished them. Progress of Wound: Had EpiCord #1 placed last week. - Physical Exam Vital Signs Temp Pulse Resp BP Pulse Ox 97.8 F 97 16 143/79 H 99 03/27/20 10:41 03/27/20 10:41 03/27/20 10:41 03/27/20 10:41 03/08/20 00:18 General: Alert, Oriented x3 HEENT: PERRLA, EOMI Oral: Moist Mucosa Neck: Supple Lungs: Clear to auscultation Cardiovascular: Regular rate, Regular Rhythm Abdomen: Soft, Non-Distended Skin: Ulcer/ Wound - nonhealing ulcer right BKA stump. Had EpiCord #1 placed last week. It was left in place. The outer dressing was changed today. Wound Measurements and Assessment - Nurse 1 - General Ulcer Measurement Start: 03/20/20 10:59 Freq: Status: Active Protocol: Activity Type Activity Date Activity User E-Sign Co-Sign Detail Recorded Client Recorded Date Recorded By Document 03/27/20 10:41 [facility] [id number] 03/27/20 10:45 [facility] 03/27/20 10:41 Wound Center Nurse 1 [Ulcer Assessment] 7-right BKA -Combined with other wound No -Current Size (cm) - Length 0.1 -Current Size (cm) - Width 0.1 -Current Size (cm) - Depth 0.1 -Total Square Cm 0.01 WC - Nurse 2 - General Ulcer CM Notes Start: 03/20/20 10:59 Freq: Status: Active Protocol: Activity Type Activity Date Activity User E-Sign Co-Sign Detail Recorded Client Recorded Date Recorded By Document 03/27/20 11:03 [id number] 03/27/20 11:06 03/27/20 11:03 Wound Center Nurse 2 [Procedure/Treatment] -Correct Patient No -Correct Side, Site, Position No -Correct Procedure No -Procedure Performed No -Wound/Ulcer Outcome Not Healed -Bleeding Controlled with Pressure -Offloading No -Treatment Response Procedure Tolerated Well [See Physician Procedure note for Specifics] Pain Scale: 0-10 Numeric [Pain] -Is Patient Pain Free? Yes Neurological: Cranial nerves II-XII grossly intact Psych/Mental Status: Normal Affect, Appropriate Debridement Note Post-Debridement Measurements/Treatment WC - Nurse 2 - General Ulcer CM Notes Start: 03/20/20 10:59 Freq: Status: Active Protocol: Activity Type Activity Date Activity User E-Sign Co-Sign Detail Recorded Client Recorded Date Recorded By Document 03/20/20 11:50 [id number] 03/20/20 11:51 Document 03/27/20 11:03 [id number] 03/27/20 11:06 03/20/20 03/27/20 11:50 11:03 Wound Center Nurse 2 7-right BKA -Time 11:50 -Correct Patient Yes No -Correct Side, Site, Position Yes No -Correct Procedure Yes No -Procedure Performed Yes No -Type of Procedure Debridement -Clinical Debridement Subcutaneous -Post Debridement Size (cm) - Length 1.5 -Post Debridement Size (cm) - Width 0.8 -Post Debridement Size (cm) - Depth 0.5 -Total Square Cm 1.20 -Wound/Ulcer Outcome Not Healed Not Healed -Ulcer Cleansing Rinsed/ Irrigated with Saline -Foul Odor after Cleansing No -Bioengineered Tissue Yes -Type of bioengineered Tissue EPICORD -Expiration Date 09/08/24 -Product Lot Number [id number] -Percent Used 100 -Saline Lot Number [id number] -Bleeding Controlled with Pressure Pressure -Offloading Yes No -Type of Offloading Knee Walker -Treatment Response Procedure Procedure Tolerated Well Tolerated Well Pain Scale: 0-10 Numeric Is Patient Pain Free? Yes Yes Wound debrided: #7 Right BKA stump. Laterality: Right Wound Grade/Stage: IV. No debridement was completed today - the outer dressing was changed. The EpiCord #1 was left alone. Another EpiCord will be applied next week. Assessment/Plan Active Problems (Last Updated 03/16/20 @ 07:29 by BRANT Virgen) Diabetic ulcer of lower extremity (Chronic) History of osteomyelitis (Chronic) 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 (Chronic) right BKA Tobacco abuse (Chronic) Hx of right BKA (Chronic) 1. Surgical preparation anterior aspect right BKA stump with excisional debridement nonhealing painful ulcer. 2. Partial ostectomy tibia for osteomyelitis. 3. 3 cm complex secondary wound closure - 06/11/19 1. 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 2. Partial ostectomy tibia for osteomyelitis. 3. Complex secondary wound closure revision reconstruction - 12/28/18 Chronic pain (Chronic) DM2 (diabetes mellitus, type 2) (Chronic) Assessment: 1. Traumatic infected hematoma right BKA stump. 2. Diabetes. 3. PVD. 4. Nonhealing infected diabetic ulcer anterior aspect right BKA stump. 5. History of necrotizing fasciitis. 6. History of osteomyelitis. 7. Smoker. 8. s/p surgical preparation right BKA stump with incision and drainage and excisional debridement infected hematoma (19.25 cm2) and partial ostectomy tibia for osteomyelitis. Plan: There is bone exposed at the base of the ulcer. Wound care- Epicord #1 applied with saline and topped with collagen hydrogel, covered with adaptic and secured with steri strips. JOSE D wrap for compression. The EpiCord was left in today. The outer dressing was changed. Will apply EpiCord next week. A wound culture was done on 02/21/20 which was positive for Enterococcus faecalis. She was started on Augmentin and has finished it. Operative bone culture and tissue culture from 12/07/19 showed Staphylococcus aureus. She was placed on Doxycycline and has finished them. Her HgA1c is 10.5 from 12/07/19 and Prealbumin was 14. Encouraged increase in protein intake to help with wound healing. Pain management is now managing her pain medications. Encouraged the patient to stop smoking as it may have deleterious effects on wound healing. Followup 1 week. Office Visits / Consults: [id number] OV L3 Est - ICD-10 - T87.89, E11.9, I73.9, Z87.39, F17.200
[2020-04-03 10:29] VITALS: BP 146/80; PULSE 103; RESP 18; TEMP 37; BMI 36.6
--- NOTE | 2020-04-03 13:16 | PCM.WC.PN ---
(1) Diabetic ulcer of lower extremity Status: Chronic Current Visit: Yes Code(s): E11.622 - Type 2 diabetes mellitus with other skin ulcer; L97.909 - Non-pressure chronic ulcer of unspecified part of unspecified lower leg with unspecified severity (2) History of osteomyelitis Status: Chronic Current Visit: Yes Code(s): Z87.39 - Personal history of other diseases of the musculoskeletal system and connective tissue (3) 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 Status: Chronic Current Visit: Yes Code(s): T87.89 - Other complications of amputation stump; M79.604 - Pain in right leg Comment: right BKA (4) Tobacco abuse Status: Chronic Current Visit: Yes Code(s): Z72.0 - Tobacco use (5) Hx of right BKA Status: Chronic Current Visit: Yes Code(s): Z89.511 - Acquired absence of right leg below knee Comment: 1. Surgical preparation anterior aspect right BKA stump with excisional debridement nonhealing painful ulcer. 2. Partial ostectomy tibia for osteomyelitis. 3. 3 cm complex secondary wound closure - 06/11/19 1. 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 2. Partial ostectomy tibia for osteomyelitis. 3. Complex secondary wound closure revision reconstruction - 12/28/18 (6) Chronic pain Status: Chronic Current Visit: Yes Code(s): G89.29 - Other chronic pain (7) DM2 (diabetes mellitus, type 2) Status: Chronic Current Visit: Yes Code(s): E11.9 - Type 2 diabetes mellitus without complications Type of Wound Date of Service: 04/03/20 Chief Complaint: Nohealing infected diabetic ulcer anterior aspect right BKA stump. History of Wound: Surgery 12/07/19 - 1. Surgical preparation right BKA stump with incision and drainage and excisional debridement infected hematoma (19.25 cm2). 2. Partial ostectomy tibia for osteomyelitis. Wound care- EpiCord. Operative bone culture and tissue culture from 12/07/19 showed Staphylococcus aureus. She was treated with Doxycycline. Pathology was negative for osteomyelitis. Pathology from 06/26 was positive for osteomyelitis. Her HgA1c from 12/07/19 was 10.5. Prealbumin from 12/07/19 was 14. She denies fever today and states her appetite is ok. Another wound culture was obtained on 02/21/20. It showed Enterococcus faecalis. She was started on Augmentin and has finished them. Progress of Wound: Improved. Still has pain with light palpation. - Physical Exam Vital Signs Temp Pulse Resp BP Pulse Ox 98.6 F 103 H 18 146/80 H 99 04/03/20 10:29 04/03/20 10:29 04/03/20 10:04/03/20 10:03/08/20 00:18 General: Alert, Oriented x3, Cooperative HEENT: Atraumatic Oral: Moist Mucosa Lungs: Normal air movement Cardiovascular: Regular rate Extremities: Capillary Refill Less than 3 Seconds Skin: Ulcer/ Wound - Right BKA stump. Bone is still exposed. Ucler is smaller with epicord placement. Ulcer continues to be painful with palpation. Wound Measurements and Assessment WC - Nurse 1 - General Ulcer Measurement Start: 03/20/20 10:59 Freq: Status: Active Protocol: Activity Type Activity Date Activity User E-Sign Co-Sign Detail Recorded Client Recorded Date Recorded By Document 04/03/20 10:29 [facility] [id number] 04/03/20 10:40 [facility] 04/03/20 10:29 Wound Center Nurse 1 [Ulcer Assessment] 7-right BKA -Combined with other wound No -Current Size (cm) - Length 2.2 -Current Size (cm) - Width 0.7 -Current Size (cm) - Depth 0.3 -Total Square Cm 1.54 -Photo Taken No -Epithelialization None Present -Tunneling No -Undermining/Tunneling No -Circular Undermining No -Exudate Amt Small -Exudate Type Serosanguineous -Wound Margin Distinct, Outline Attached -Granulation Amt Small (1-33%) -Granulation Quality Red -Slough/Fibrin Yes -Necrosis Amt Medium (34-66%) -Necrotic Tissue Type Adherent Slough -Texture (Love-wound Skin Appearance) Assessed, Scarring -Moisture (Love-wound Skin Appearance Assessed ) -Color (Love-wound Skin Appearance) Assessed, Erythema -Temperature (Love-wound Skin No Abnormality Appearance) (Pt Warm) -Tenderness on Palpation (Love-wound Yes Skin Appearance) -Ulcer Cleansing soapy water -Foul Odor after Cleansing No -Anesthetic Used 5% Lidocaine Gel WC - Nurse 2 - General Ulcer CM Notes Start: 03/20/20 10:59 Freq: Status: Active Protocol: Activity Type Activity Date Activity User E-Sign Co-Sign Detail Recorded Client Recorded Date Recorded By Document 04/03/20 11:14 [id number] 04/03/20 11:23 04/03/20 11:14 Wound Center Nurse 2 [Procedure/Treatment] -Time 11:15 -Correct Patient Yes -Correct Side, Site, Position Yes -Correct Procedure Yes -Procedure Performed Yes -Type of Procedure Debridement -Clinical Debridement Subcutaneous -Post Debridement Size (cm) - Length 0.9 -Post Debridement Size (cm) - Width 0.7 -Post Debridement Size (cm) - Depth 0.5 -Total Square (cm) 0.63 -Wound/Ulcer Outcome Not Healed -Ulcer Cleansing Rinsed/ Irrigated with Saline -Foul Odor after Cleansing No -Bioengineered Tissue Yes -Type of bioengineered Tissue EPICORD -Expiration Date 09/08/24 -Product Lot Number [id number] -Percent Used 100 -Saline Lot Number [id number] -Bleeding Controlled with Pressure -Offloading Yes -Type of Offloading Knee Walker -Treatment Response Procedure Tolerated Well [See Physician Procedure note for Specifics] Pain Scale: 0-10 Numeric [Pain] -Is Patient Pain Free? Yes Musculoskeletal: Tenderness Neurological: Cranial nerves II-XII grossly intact Psych/Mental Status: Normal Affect, Appropriate Debridement Note Post-Debridement Measurements/Treatment WC - Nurse 2 - General Ulcer CM Notes Start: 03/20/20 10:59 Freq: Status: Active Protocol: Activity Type Activity Date Activity User E-Sign Co-Sign Detail Recorded Client Recorded Date Recorded By Document 03/20/20 11:50 [id number] 03/20/20 11:51 Document 03/27/20 11:03 [id number] 03/27/20 11:06 Document 04/03/20 11:14 [id number] 04/03/20 11:23 03/20/20 03/27/20 04/03/20 11:50 11:03 11:14 Wound Center Nurse 2 7-right BKA -Time 11:50 11:15 -Correct Patient Yes No Yes -Correct Side, Site, Position Yes No Yes -Correct Procedure Yes No Yes -Procedure Performed Yes No Yes -Type of Procedure Debridement Debridement -Clinical Debridement Subcutaneous Subcutaneous -Post Debridement Size (cm) - Length 1.5 0.9 -Post Debridement Size (cm) - Width 0.8 0.7 -Post Debridement Size (cm) - Depth 0.5 0.5 -Total Square (cm) 1.20 0.63 -Wound/Ulcer Outcome Not Healed Not Healed Not Healed -Ulcer Cleansing Rinsed/ Rinsed/ Irrigated with Irrigated with Saline Saline -Foul Odor after Cleansing No No -Bioengineered Tissue Yes Yes -Type of bioengineered Tissue EPICORD EPICORD -Expiration Date 09/08/24 09/08/24 -Product Lot Number [id number] -Percent Used 100 100 -Saline Lot Number [id number] -Bleeding Controlled with Pressure Pressure Pressure -Offloading Yes No Yes -Type of Offloading Knee Walker Knee Walker -Treatment Response Procedure Procedure Procedure Tolerated Well Tolerated Well Tolerated Well Pain Scale: 0-10 Numeric Is Patient Pain Free? Yes Yes Yes Wound debrided: BKA stump ulcer. Laterality: Right Type of Debridement: Excisional debridement Anesthesia Used: 5% Lidocaine Gel Depth: Down to and including healthy tissue, in the subcutaneous layer Percentage of wound debrided: 100 Instrument Used: 3mm curette Tissue Removed: Subcutanous tissue and slough. Severity: Fat Layer Exposed Amount of bleeding with debridement: Mild Bleeding Controlled with: Pressure Patient did not tolerate procedure well Assessment/Plan Active Problems (Last Updated 03/16/20 @ 07:29 by Shivani Herr [employer]) Diabetic ulcer of lower extremity (Chronic) History of osteomyelitis (Chronic) 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 (Chronic) right BKA Tobacco abuse (Chronic) Hx of right BKA (Chronic) 1. Surgical preparation anterior aspect right BKA stump with excisional debridement nonhealing painful ulcer. 2. Partial ostectomy tibia for osteomyelitis. 3. 3 cm complex secondary wound closure - 06/11/19 1. 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 2. Partial ostectomy tibia for osteomyelitis. 3. Complex secondary wound closure revision reconstruction - 12/28/18 Chronic pain (Chronic) DM2 (diabetes mellitus, type 2) (Chronic) Assessment: 1. Traumatic infected hematoma right BKA stump. 2. Diabetes. 3. PVD. 4. Nonhealing infected diabetic ulcer anterior aspect right BKA stump. 5. History of necrotizing fasciitis. 6. History of osteomyelitis. 7. Smoker. 8. s/p surgical preparation right BKA stump with incision and drainage and excisional debridement infected hematoma (19.25 cm2) and partial ostectomy tibia for osteomyelitis. Plan: There is bone exposed at the base of the ulcer. Wound care- Epicord #2 applied with saline and topped with collagen hydrogel, covered with adaptic and secured with steri strips. JOSE D wrap for compression. A wound culture was done on 02/21/20 which was positive for Enterococcus faecalis. She was started on Augmentin and has finished it. Operative bone culture and tissue culture from 12/07/19 showed Staphylococcus aureus. She was placed on Doxycycline and has finished them. Her HgA1c is 10.5 from 12/07/19 and Prealbumin was 14. Encouraged increase in protein intake to help with wound healing. Pain management is now managing her pain medications. Encouraged the patient to stop smoking as it may have deleterious effects on wound healing. Patient fell offer her knee scooter a couple days ago onto her stump. Will continue to monitor. Followup 1 week. [id number]: 00100 Skin sub graft trnk/arm/leg
== END 2020-04-07 23:59 ==
LOC: WC 10:30
PROVIDERS: Family Provider Internal Medicine; PCP Internal Medicine; Visit Provider Surgery
DX: E11.622 Type 2 diabetes mellitus with other skin ulcer (principal); Z89.511 Acquired absence of right leg below knee; T87.89 Other complications of amputation stump; E11.51 Type 2 diabetes mellitus with diabetic peripheral angiopathy without gangrene; K30 Functional dyspepsia; Y83.5 Amputation of limb(s) as the cause of abnormal reaction of the patient, or of later complication, without mention of misadventure at the time of the procedure; F17.200 Nicotine dependence, unspecified, uncomplicated
CPT/HCPCS: 15271; 99213; Q4187; G0463

== ENCOUNTER → 2020-04-19 13:42 | Outpatient (CLI) | payer MEDICARE, MEDICAID, SELFPAY ==
[2020-04-19 13:16] VITALS: BMI 30.9
[2020-04-19 15:28] LABS: Absolute Lymphocyte Count 1.33 X10^3/uL (0.83-4.51); Absolute Neutrophil Count 4.5 X10^3/uL (2.0-7.7); Basophil# 0.09 X10^3/uL; Basophil% 1.4 % (0-1); Eosinophil# 0.19 X10^3/uL; Hematocrit 46.7 % (37-47); Hemoglobin 15.1 g/dL (12.0-15.0); Lymphocyte # 1.33 X10^3/ul (4.0); Lymphocyte % 20.7 % (19-41); Mean Corp Hgb Conc 32.3 g/dL (32-36); Mean Corpuscular Hgb 29.4 pg (27.0-32.0); Mean Corpuscular Volume 90.9 fL (81-99); Mean Platelet Vol. 10.4 fl (6.2-12.0); Monocyte# 0.32 X10^3/uL; NRBC Flagged by Analyzer 0 % (0-5); Neutrophil # 4.48 X10^3/uL (2.7-7.7); Neutrophil % 69.6 % (47-70); Platelet Count 332 K/mm3 (150-450); RBC Distribution Width CV 13.6 % (11.6-14.6); RBC Distribution Width SD 45.6 fl (35.1-43.9); Red Blood Count 5.14 M/mm3 (4.2-5.4); White Blood Count 6.4 K/mm3 (4.4-11.0)
[2020-04-19 15:51] LABS: ALB/GLOB Ratio 0.7 RATIO (0.9-2.4); AST(SGOT) 16 U/L (15-37); Alanine Aminotransfer ALT/SGPT 26 U/L (13-56); Albumin, Serum 3.3 g/dL (3.2-5.0); Alkaline Phosphatase 113 U/L (45-117); Anion Gap 7 (5-15); BUN 12 mg/dL (7-18); BUN/Creat Ratio 14.5 RATIO (10-20); Calcium,Total 8.8 mg/dL (8.5-10.1); Chloride 103 mmol/L (98-107); Cholesterol 202 mg/dL (200); Creatinine, Serum 0.83 mg/dL (0.55-1.02); EST Glomerular Filtration Rate 79 mL/min (>60); Est Glom Filt Rate - Afr Amer 95 mL/min (>60); Globulin 4.8 g/dL (2.2-4.2); Glucose 252 mg/dL (74-106); High Density Lipoprotein 53 mg/dL; Potassium 4.7 mmol/L (3.5-5.1); Protein, Total 8.1 g/dL (6.4-8.2); Sodium Level 137 mmol/L (136-145); Thyroid Stim Hormone (TSH) 1.12 uIU/mL (0.358-3.74); Triglycerides 85 mg/dL; Very Low Density Lipoprotein 17 mg/dL (5-40)
[2020-04-19 16:27] LABS: Creatinine, Urine (random) < 13.00 mg/dL (NO RANGE EST.); Microalbumin,Random Urine < 5.0 mg/L (NO RANGE EST.)
== END ==
PROVIDERS: PCP Internal Medicine; Referring Provider Nurse Practitioner Family; Visit Provider Nurse Practitioner Family
DX: E11.622 Type 2 diabetes mellitus with other skin ulcer (principal); L98.419 Non-pressure chronic ulcer of buttock with unspecified severity; F32.9 Major depressive disorder, single episode, unspecified; F41.9 Anxiety disorder, unspecified; E78.5 Hyperlipidemia, unspecified
CPT/HCPCS: 36415; 80053; 80061; 82043; 82570; 84443; 85025

== ENCOUNTER 2020-04-24 13:45 | Outpatient (RCR) | payer MEDICARE, MEDICAID, SELFPAY ==
[2020-04-08 00:19] VITALS: BP 146/80; PULSE 103; RESP 18; TEMP 37; O2SAT 99
[2020-04-10 13:18] VITALS: BP 118/76; PULSE 94; RESP 16; TEMP 36.5; BMI 36.6
--- NOTE | 2020-04-10 15:32 | PCM.WC.PN ---
(1) Diabetic ulcer of lower extremity Status: Chronic Current Visit: Yes Code(s): E11.622 - Type 2 diabetes mellitus with other skin ulcer; L97.909 - Non-pressure chronic ulcer of unspecified part of unspecified lower leg with unspecified severity (2) 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 Status: Chronic Current Visit: Yes Code(s): T87.89 - Other complications of amputation stump; M79.604 - Pain in right leg Comment: right BKA (3) Tobacco abuse Status: Chronic Current Visit: Yes Code(s): Z72.0 - Tobacco use (4) Hx of right BKA Status: Chronic Current Visit: Yes Code(s): Z89.511 - Acquired absence of right leg below knee Comment: 1. Surgical preparation anterior aspect right BKA stump with excisional debridement nonhealing painful ulcer. 2. Partial ostectomy tibia for osteomyelitis. 3. 3 cm complex secondary wound closure - 06/11/19 1. 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 2. Partial ostectomy tibia for osteomyelitis. 3. Complex secondary wound closure revision reconstruction - 12/28/18 (5) DM2 (diabetes mellitus, type 2) Status: Chronic Current Visit: Yes Code(s): E11.9 - Type 2 diabetes mellitus without complications (6) History of osteomyelitis Status: Chronic Current Visit: Yes Code(s): Z87.39 - Personal history of other diseases of the musculoskeletal system and connective tissue Type of Wound Date of Service: 04/10/20 Chief Complaint: Nohealing infected diabetic ulcer anterior aspect right BKA stump. History of Wound: Surgery 12/07/19 - 1. Surgical preparation right BKA stump with incision and drainage and excisional debridement infected hematoma (19.25 cm2). 2. Partial ostectomy tibia for osteomyelitis. Wound care- EpiCord. Operative bone culture and tissue culture from 12/07/19 showed Staphylococcus aureus. She was treated with Doxycycline. Pathology was negative for osteomyelitis. Pathology from 06/26 was positive for osteomyelitis. Her HgA1c from 12/07/19 was 10.5. Prealbumin from 12/07/19 was 14. She denies fever today and states her appetite is ok. Another wound culture was obtained on 02/21/20. It showed Enterococcus faecalis. She was started on Augmentin and has finished them. Progress of Wound: Improved. Still has pain with light palpation. - Physical Exam Vital Signs Temp Pulse Resp BP Pulse Ox 97.7 F L 94 16 118/76 99 04/10/20 13:18 04/10/20 13:18 04/10/20 13:18 04/10/20 13:18 04/08/20 00:19 General: Alert, Oriented x3 HEENT: Atraumatic Oral: Moist Mucosa Lungs: Normal air movement Cardiovascular: Regular rate Abdomen: Obese Extremities: Capillary Refill Less than 3 Seconds, Edema Skin: Ulcer/ Wound - Right BKA stump ulcer Epicord is still in place and wound veil is in place. Wound Measurements and Assessment WC - Nurse 1 - General Ulcer Measurement Start: 04/10/20 13:18 Freq: Status: Active Protocol: Activity Type Activity Date Activity User E-Sign Co-Sign Detail Recorded Client Recorded Date Recorded By Document 04/10/20 13:18 [id number] 04/10/20 13:20 04/10/20 13:18 Wound Center Nurse 1 [Ulcer Assessment] 7-right BKA -Combined with other wound No [Edema Assessment] -Lower Limb Edema Present No WC - Nurse 2 - General Ulcer CM Notes Start: 04/10/20 13:18 Freq: Status: Active Protocol: Activity Type Activity Date Activity User E-Sign Co-Sign Detail Recorded Client Recorded Date Recorded By Document 04/10/20 13:29 [id number] 04/10/20 13:30 04/10/20 13:29 Wound Center Nurse 2 [Procedure/Treatment] 7-right BKA -Correct Patient No -Correct Side, Site, Position No -Correct Procedure No -Procedure Performed No -Wound/Ulcer Outcome Not Healed [See Physician Procedure note for Specifics] Musculoskeletal: Tenderness Neurological: Cranial nerves II-XII grossly intact Psych/Mental Status: Normal Affect, Appropriate Debridement Note Post-Debridement Measurements/Treatment WC - Nurse 2 - General Ulcer CM Notes Start: 04/10/20 13:18 Freq: Status: Active Protocol: Activity Type Activity Date Activity User E-Sign Co-Sign Detail Recorded Client Recorded Date Recorded By Document 04/10/20 13:29 [id number] 04/10/20 13:30 04/10/20 13:29 Wound Center Nurse 2 7-right BKA -Correct Patient No -Correct Side, Site, Position No -Correct Procedure No -Procedure Performed No -Wound/Ulcer Outcome Not Healed Wound debrided: BKA ulcer Amount of bleeding with debridement: Mild No debridement was completed today Assessment/Plan Active Problems (Last Updated 03/16/20 @ 07:29 by Shivani Herr NP-C) Diabetic ulcer of lower extremity (Chronic) History of osteomyelitis (Chronic) 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 (Chronic) right BKA Tobacco abuse (Chronic) Hx of right BKA (Chronic) 1. Surgical preparation anterior aspect right BKA stump with excisional debridement nonhealing painful ulcer. 2. Partial ostectomy tibia for osteomyelitis. 3. 3 cm complex secondary wound closure - 06/11/19 1. 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 2. Partial ostectomy tibia for osteomyelitis. 3. Complex secondary wound closure revision reconstruction - 12/28/18 DM2 (diabetes mellitus, type 2) (Chronic) Assessment: 1. Traumatic infected hematoma right BKA stump. 2. Diabetes. 3. PVD. 4. Nonhealing infected diabetic ulcer anterior aspect right BKA stump. 5. History of necrotizing fasciitis. 6. History of osteomyelitis. 7. Smoker. 8. s/p surgical preparation right BKA stump with incision and drainage and excisional debridement infected hematoma (19.25 cm2) and partial ostectomy tibia for osteomyelitis. Plan: There is bone exposed at the base of the ulcer. Wound care- Epicord #3 applied last week with saline and topped with collagen hydrogel, covered with adaptic and secured with steri strips. JOSE D wrap for compression. No debridement this week. Wound veil intact. Collagen hydrogel placed today. A wound culture was done on 02/21/20 which was positive for Enterococcus faecalis. She was started on Augmentin and has finished it. Operative bone culture and tissue culture from 12/07/19 showed Staphylococcus aureus. She was placed on Doxycycline and has finished them. Her HgA1c is 10.5 from 12/07/19 and Prealbumin was 14. Encouraged increase in protein intake to help with wound healing. Pain management is now managing her pain medications. Encouraged the patient to stop smoking as it may have deleterious effects on wound healing. Followup 1 week. Office Visits / Consults: [id number] L3 Est
[2020-04-17 11:45] VITALS: BP 134/69; PULSE 96; RESP 16; TEMP 36.6; BMI 36.6
--- NOTE | 2020-04-17 15:49 | PN.PCM_ITS ---
(1) Diabetic ulcer of lower extremity Status: Chronic Current Visit: Yes Code(s): E11.622 - Type 2 diabetes mellitus with other skin ulcer; L97.909 - Non-pressure chronic ulcer of unspecified part of unspecified lower leg with unspecified severity (2) Diabetic ulcer of left buttock Status: Acute Current Visit: Yes Code(s): E11.622 - Type 2 diabetes mellitus with other skin ulcer; L98.419 - Non-pressure chronic ulcer of buttock with unspecified severity (3) 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 Status: Chronic Current Visit: Yes Code(s): T87.89 - Other complications of amputation stump; M79.604 - Pain in right leg Comment: right BKA (4) Tobacco abuse Status: Chronic Current Visit: Yes Code(s): Z72.0 - Tobacco use (5) Hx of right BKA Status: Chronic Current Visit: Yes Code(s): Z89.511 - Acquired absence of right leg below knee Comment: 1. Surgical preparation anterior aspect right BKA stump with excisional debridement nonhealing painful ulcer. 2. Partial ostectomy tibia for osteomyelitis. 3. 3 cm complex secondary wound closure - 06/11/19 1. 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 2. Partial ostectomy tibia for osteomyelitis. 3. Complex secondary wound closure revision reconstruction - 12/28/18 (6) DM2 (diabetes mellitus, type 2) Status: Chronic Current Visit: Yes Code(s): E11.9 - Type 2 diabetes mellitus without complications (7) History of osteomyelitis Status: Chronic Current Visit: Yes Code(s): Z87.39 - Personal history of other diseases of the musculoskeletal system and connective tissue Type of Wound Date of Service: 04/17/20 Chief Complaint: Nohealing infected diabetic ulcer anterior aspect right BKA stump. History of Wound: Surgery 12/07/19 - 1. Surgical preparation right BKA stump with incision and drainage and excisional debridement infected hematoma (19.25 cm2). 2. Partial ostectomy tibia for osteomyelitis. New ulcer present today on left buttock where she had a previous scarred area. Wound care- EpiCord to right BKA stump. Silvercel to the left buttock ulcer. Operative bone culture and tissue culture from 12/07/19 showed Staphylococcus aureus. She was treated with Doxycycline. Pathology was negative for osteomyelitis. Pathology from 06/26 was positive for osteomyelitis. Her HgA1c from 12/07/19 was 10.5. Prealbumin from 12/07/19 was 14. She denies fever today and states her appetite is ok. Another wound culture was obtained on 02/21/20. It showed Enterococcus faecalis. She was started on Augmentin and has finished them. Progress of Wound: Improved. Still has pain with light palpation. New ulcer on left buttock on the proximal end of a previous injury that the scar has . - Physical Exam Vital Signs Temp Pulse Resp BP Pulse Ox 97.9 F 96 16 134/69 H 99 04/17/20 11:45 04/17/20 11:45 04/17/20 11:45 04/17/20 11:45 04/08/20 00:19 General: Alert, Oriented x3, Cooperative HEENT: Atraumatic Oral: Moist Mucosa Lungs: Normal air movement Cardiovascular: Regular rate Abdomen: Soft, Obese Extremities: Capillary Refill Less than 3 Seconds, Tenderness - BKA stump tender to palpation. Skin: Ulcer/ Wound - Right anterior BKA stump ulcer that is improving in size but there continues to have a small amount of bone exposure on palpation. Left buttock in the gluteal fold is a new ulcer that has opened on a previous injury that was healed. The edge of the scarring , base of ulcer is beefy pink. Wound Measurements and Assessment WC - Nurse 1 - General Ulcer Measurement Start: 04/10/20 13:18 Freq: Status: Active Protocol: Activity Type Activity Date Activity User E-Sign Co-Sign Detail Recorded Client Recorded Date Recorded By Document 04/17/20 11:45 [facility] [id number] 04/17/20 11:52 [facility] 04/17/20 11:45 Wound Center Nurse 1 [Ulcer Assessment] #8- L GLUTEAL FOLD -Combined with other wound No -Current Size (cm) - Length 0.6 -Current Size (cm) - Width 1.2 -Current Size (cm) - Depth 0.2 -Total Square Cm 0.72 -Date of Last Picture (Recall this 04/17/20 field) -Photo Taken Yes -Epithelialization None Present -Tunneling No -Undermining/Tunneling No -Circular Undermining No -Exudate Amt None Present -Wound Margin Distinct, Outline Attached -Granulation Amt Medium (34-66%) -Granulation Quality [place] -Slough/Fibrin Yes -Necrosis Amt Small (1-33%) -Necrotic Tissue Type Adherent Slough -Texture (Love-wound Skin Appearance) Assessed, Scarring -Moisture (Love-wound Skin Appearance Assessed ) -Color (Love-wound Skin Appearance) Assessed -Temperature (Love-wound Skin No Abnormality Appearance) (Pt Warm) -Tenderness on Palpation (Love-wound No Skin Appearance) -Ulcer Cleansing Rinsed/ Irrigated with Saline -Foul Odor after Cleansing No -Anesthetic Used 5% Lidocaine Gel 7-right BKA -Combined with other wound No -Current Size (cm) - Length 0.1 -Current Size (cm) - Width 0.1 -Current Size (cm) - Depth 0.1 -Total Square Cm 0.01 -Date of Last Picture (Recall this 04/17/20 field) -Photo Taken Yes -Epithelialization None Present -Tunneling No -Undermining/Tunneling No -Circular Undermining No -Exudate Amt Small -Exudate Type Serosanguineous -Wound Margin Distinct, Outline Attached -Granulation Amt Small (1-33%) -Granulation Quality [place] -Slough/Fibrin Yes -Necrosis Amt Large (67-100%) -Necrotic Tissue Type Adherent Slough -Texture (Love-wound Skin Appearance) Assessed, Scarring -Moisture (Love-wound Skin Appearance Assessed,Dry/ ) Scaly -Color (Love-wound Skin Appearance) Assessed -Temperature (Love-wound Skin No Abnormality Appearance) (Pt Warm) -Tenderness on Palpation (Love-wound No Skin Appearance) -Ulcer Cleansing soapy water -Foul Odor after Cleansing No -Anesthetic Used 4% Lidocaine Solution SOL - Nurse 2 - General Ulcer CM Notes Start: 04/10/20 13:18 Freq: Status: Active Protocol: Activity Type Activity Date Activity User E-Sign Co-Sign Detail Recorded Client Recorded Date Recorded By Document 04/17/20 12:17 SHAYNA [id number] 04/17/20 12:19 SHAYNA 04/17/20 12:17 Wound Center Nurse 2 [Procedure/Treatment] #8- L GLUTEAL FOLD -Time 12:17 -Correct Patient Yes -Correct Side, Site, Position Yes -Correct Procedure Yes -Procedure Performed Yes -Type of Procedure Debridement -Clinical Debridement Subcutaneous -Post Debridement Size (cm) - Length 1.7 -Post Debridement Size (cm) - Width 0.7 -Post Debridement Size (cm) - Depth 0.4 -Total Square (cm) 1.19 -Wound/Ulcer Outcome Not Healed -Ulcer Cleansing Rinsed/ Irrigated with Saline -Foul Odor after Cleansing No -Bioengineered Tissue No -Bleeding Controlled with Pressure -Offloading No -Treatment Response Procedure Tolerated Well 7-right BKA -Time 12:18 -Correct Patient Yes -Correct Side, Site, Position Yes -Correct Procedure Yes -Procedure Performed Yes -Type of Procedure Debridement -Clinical Debridement Subcutaneous -Post Debridement Size (cm) - Length 1 -Post Debridement Size (cm) - Width 0.7 -Post Debridement Size (cm) - Depth 0.4 -Total Square (cm) 0.7 -Wound/Ulcer Outcome Not Healed -Ulcer Cleansing Rinsed/ Irrigated with Saline -Foul Odor after Cleansing No -Bioengineered Tissue Yes -Type of bioengineered Tissue EPICORD -Expiration Date 12/07/24 -Product Lot Number [id number] -Percent Used 100 -Saline Lot Number [id number] -Bleeding Controlled with Pressure -Offloading No -Treatment Response Procedure Tolerated Well [See Physician Procedure note for Specifics] Pain Scale: 0-10 Numeric [Pain] -Is Patient Pain Free? Yes Musculoskeletal: Tenderness Neurological: Cranial nerves II-XII grossly intact Psych/Mental Status: Normal Affect, Appropriate Debridement Note Post-Debridement Measurements/Treatment WC - Nurse 2 - General Ulcer CM Notes Start: 04/10/20 13:18 Freq: Status: Active Protocol: Activity Type Activity Date Activity User E-Sign Co-Sign Detail Recorded Client Recorded Date Recorded By Document 04/10/20 13:29 [id number] 04/10/20 13:30 Document 04/17/20 12:17 [id number] 04/17/20 12:19 04/10/20 04/17/20 13:29 12:17 Wound Center Nurse 2 #8- L GLUTEAL FOLD -Time 12:17 -Correct Patient Yes -Correct Side, Site, Position Yes -Correct Procedure Yes -Procedure Performed Yes -Type of Procedure Debridement -Clinical Debridement Subcutaneous -Post Debridement Size (cm) - Length 1.7 -Post Debridement Size (cm) - Width 0.7 -Post Debridement Size (cm) - Depth 0.4 -Total Square (cm) 1.19 -Wound/Ulcer Outcome Not Healed -Ulcer Cleansing Rinsed/ Irrigated with Saline -Foul Odor after Cleansing No -Bioengineered Tissue No -Bleeding Controlled with Pressure -Offloading No -Treatment Response Procedure Tolerated Well 7-right BKA -Time 12:18 -Correct Patient No Yes -Correct Side, Site, Position No Yes -Correct Procedure No Yes -Procedure Performed No Yes -Type of Procedure Debridement -Clinical Debridement Subcutaneous -Post Debridement Size (cm) - Length 1 -Post Debridement Size (cm) - Width 0.7 -Post Debridement Size (cm) - Depth 0.4 -Total Square (cm) 0.7 -Wound/Ulcer Outcome Not Healed Not Healed -Ulcer Cleansing Rinsed/ Irrigated with Saline -Foul Odor after Cleansing No -Bioengineered Tissue Yes -Type of bioengineered Tissue EPICORD -Expiration Date 12/07/24 -Product Lot Number [id number] -Percent Used 100 -Saline Lot Number [id number] -Bleeding Controlled with Pressure -Offloading No -Treatment Response Procedure Tolerated Well Pain Scale: 0-10 Numeric Is Patient Pain Free? Yes Wound debrided: anterior BKA stump ulcer Laterality: Right Type of Debridement: Excisional debridement Anesthesia Used: 5% Lidocaine Gel Depth: Down to and including healthy tissue, in the subcutaneous layer Percentage of wound debrided: 100 Instrument Used: 3mm curette Tissue Removed: Subcutaneous tissue and slough Severity: Fat Layer Exposed - There is bone exposure Amount of bleeding with debridement: Mild Bleeding Controlled with: Pressure Patient tolerated procedure well - Additional Wound Wound debrided: Buttock in the gluteal fold. Laterality: Left Type of Debridement: Excisional debridement Anesthesia Used: 5% Lidocaine Gel Depth: Down to and including healthy tissue, in the subcutaneous layer Percentage of wound debrided: 100 Instrument Used: 3mm curette Tissue Removed: Subcutaneous tissue and slough Severity: Fat Layer Exposed Amount of bleeding with debridement: Mild Bleeding Controlled with: Pressure Patient tolerated procedure: Patient tolerated procedure well Assessment/Plan Active Problems (Last Updated 03/16/20 @ 07:29 by Shivani Herr NP-C) Diabetic ulcer of left buttock (Acute) Diabetic ulcer of lower extremity (Chronic) History of osteomyelitis (Chronic) 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 (Chronic) right BKA Tobacco abuse (Chronic) Hx of right BKA (Chronic) 1. Surgical preparation anterior aspect right BKA stump with excisional debridement nonhealing painful ulcer. 2. Partial ostectomy tibia for osteomyelitis. 3. 3 cm complex secondary wound closure - 06/11/19 1. 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 2. Partial ostectomy tibia for osteomyelitis. 3. Complex secondary wound closure revision reconstruction - 12/28/18 DM2 (diabetes mellitus, type 2) (Chronic) Assessment: 1. Traumatic infected hematoma right BKA stump. 2. Diabetes. 3. PVD. 4. Nonhealing infected diabetic ulcer anterior aspect right BKA stump. 5. History of necrotizing fasciitis. 6. History of osteomyelitis. 7. Smoker. 8. s/p surgical preparation right BKA stump with incision and drainage and excisional debridement infected hematoma (19.25 cm2) and partial ostectomy tibia for osteomyelitis. 9. Ulcer of left buttocks in gluteal fold. Plan: There is bone exposed at the base of the ulcer. Wound care- Epicord #3 applied with saline and topped with collagen hydrogel, covered with adaptic and secured with steri strips. JOSE D wrap for compression. New ulcer on left buttock in gluteal fold. This is on the proximal end of a previous injury that had healed. Will place Silvercel to the opened area daily. A wound culture was done on 02/21/20 which was positive for Enterococcus faecalis. She was started on Augmentin and has finished it. Operative bone culture and tissue culture from 12/07/19 showed Staphylococcus aureus. She was placed on Doxycycline and has finished them. Her HgA1c is 10.5 from 12/07/19 and Prealbumin was 14. Encouraged increase in protein intake to help with wound healing. Pain management is now managing her pain medications. Encouraged the patient to stop smoking as it may have deleterious effects on wound healing. Followup 1 week. 111xxx-113xx: [id number] Annalisa subq tissue 20 sq cm/< - left buttock 150xxx-152xx: [id number] Skin sub graft trnk/arm/leg - right BKA epicord
[2020-04-24 14:07] VITALS: BP 136/63; PULSE 97; RESP 18; TEMP 36.5; BMI 36.6
--- NOTE | 2020-04-24 16:57 | PN.PCM_ITS ---
Type of Wound Date of Service: 04/24/20 Chief Complaint: Nohealing infected diabetic ulcer anterior aspect right BKA stump and nonhealing ulcer left ischial area. History of Wound: Surgery 12/07/19 - 1. Surgical preparation right BKA stump with incision and drainage and excisional debridement infected hematoma (19.25 cm2). 2. Partial ostectomy tibia for osteomyelitis. Wound care- EpiCord #3. Operative bone culture and tissue culture from 12/07/19 showed Staphylococcus aureus. She was treated with Doxycycline. Pathology was negative for osteomyelitis. Pathology from 06/26 was positive for osteomyelitis. Her HgA1c from 12/07/19 was 10.5. Prealbumin from 12/07/19 was 14.Another wound culture was obtained on 02/21/20. It showed Enterococcus faecalis. She was started on Augmentin and has finished them. She has new onset left ischial ulcer from a recent fall. She denies fever today and states her appetite is ok. Progress of Wound: Improved. - Physical Exam Vital Signs Temp Pulse Resp BP Pulse Ox 97.7 F L 97 18 136/63 H 99 04/24/20 14:07 04/24/20 14:07 04/24/20 14:07 04/24/20 14:07 04/08/20 00:19 Wound Measurements and Assessment WC - Nurse 1 - General Ulcer Measurement Start: 04/10/20 13:18 Freq: Status: Active Protocol: Activity Type Activity Date Activity User E-Sign Co-Sign Detail Recorded Client Recorded Date Recorded By Document 04/24/20 14:07 PL [id number] 04/24/20 14:16 PL 04/24/20 14:07 Wound Center Nurse 1 [Ulcer Assessment] #8- L GLUTEAL FOLD -Combined with other wound No -Current Size (cm) - Length 1 -Current Size (cm) - Width 1 -Current Size (cm) - Depth 0.2 -Total Square Cm 1 -Photo Taken No -Epithelialization None Present -Tunneling No -Undermining/Tunneling No -Circular Undermining No -Exudate Amt Medium -Exudate Type Serosanguineous -Granulation Amt Large (67-100%) -Granulation Quality [place] -Slough/Fibrin Yes -Necrosis Amt Small (1-33%) -Necrotic Tissue Type Adherent Slough -Texture (Love-wound Skin Appearance) No Abnormality -Moisture (Love-wound Skin Appearance No Abnormality ) -Color (Love-wound Skin Appearance) No Abnormality -Temperature (Love-wound Skin No Abnormality Appearance) (Pt Warm) -Ulcer Cleansing Rinsed/ Irrigated with Saline -Foul Odor after Cleansing No -Anesthetic Used 4% Lidocaine Solution - Nurse 2 - General Ulcer CM Notes Start: 04/24/20 10:36 Freq: Status: Active Protocol: Activity Type Activity Date Activity User E-Sign Co-Sign Detail Recorded Client Recorded Date Recorded By Document 04/24/20 14:44 [id number] 04/24/20 14:50 04/24/20 14:44 Wound Center Nurse 2 [Procedure/Treatment] -Time 14:48 -Correct Patient Yes -Correct Side, Site, Position Yes -Correct Procedure Yes -Procedure Performed Yes -Type of Procedure Debridement -Clinical Debridement Subcutaneous -Tissue Removed Subcutaneous -Post Debridement (cm) - Length 1.1 -Post Debridement (cm) - Width 1.1 -Post Debridement (cm) - Depth 0.2 -Total Square (Post) (cm) 1.21 -Area of Debridement (cm) - Length 1.1 -Area of Debridement (cm) - Width 1.1 -Total Square (Area) (cm) 1.21 -Tunneling No -Undermining/Tunneling No -Circular Undermining No -Ulcer Cleansing Rinsed/ Irrigated with Saline -Foul Odor after Cleansing No -Bioengineered Tissue No -Bleeding Controlled with Pressure -Offloading No -Treatment Response Procedure Tolerated Well -Debridement - Subq, 1st 20sq cm Yes 7-right BKA -Correct Patient No -Correct Side, Site, Position No -Correct Procedure No -Procedure Performed No [See Physician Procedure note for Specifics] Pain Scale: 0-10 Numeric [Pain] -Is Patient Pain Free? Yes Debridement Note Post-Debridement Measurements/Treatment - Nurse 2 - General Ulcer CM Notes Start: 04/24/20 10:36 Freq: Status: Active Protocol: Activity Type Activity Date Activity User E-Sign Co-Sign Detail Recorded Client Recorded Date Recorded By Document 04/24/20 14:44 [id number] 04/24/20 14:50 04/24/20 14:44 Wound Center Nurse 2 #8- L GLUTEAL FOLD -Time 14:48 -Correct Patient Yes -Correct Side, Site, Position Yes -Correct Procedure Yes -Procedure Performed Yes -Type of Procedure Debridement -Clinical Debridement Subcutaneous -Tissue Removed Subcutaneous -Post Debridement (cm) - Length 1.1 -Post Debridement (cm) - Width 1.1 -Post Debridement (cm) - Depth 0.2 -Total Square (Post) (cm) 1.21 -Area of Debridement (cm) - Length 1.1 -Area of Debridement (cm) - Width 1.1 -Total Square (Area) (cm) 1.21 -Tunneling No -Undermining/Tunneling No -Circular Undermining No -Ulcer Cleansing Rinsed/ Irrigated with Saline -Foul Odor after Cleansing No -Bioengineered Tissue No -Bleeding Controlled with Pressure -Offloading No -Treatment Response Procedure Tolerated Well -Debridement - Subq, 1st 20sq cm Yes 7-right BKA -Correct Patient No -Correct Side, Site, Position No -Correct Procedure No -Procedure Performed No Pain Scale: 0-10 Numeric Is Patient Pain Free? Yes Wound debrided: #8 Left ischial area. Laterality: Left Wound Grade/Stage: 2. Type of Debridement: Excisional debridement Anesthesia Used: 4% Lidocaine Solution Depth: Down to and including healthy tissue, in the subcutaneous layer Percentage of wound debrided: 100 Instrument Used: 3mm curette Tissue Removed: subcutaneous tissue. Severity: Fat Layer Exposed Amount of bleeding with debridement: Mild Bleeding Controlled with: Pressure Patient tolerated procedure well, - - a wound culture was obtained today. Assessment/Plan Active Problems (Last Reviewed 04/19/20 @ 13:15 by Tereza Buckley) Diabetic ulcer of left buttock (Acute) Diabetic ulcer of lower extremity (Chronic) History of osteomyelitis (Chronic) 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 (Chronic) right BKA Tobacco abuse (Chronic) Hx of right BKA (Chronic) 1. Surgical preparation anterior aspect right BKA stump with excisional debridement nonhealing painful ulcer. 2. Partial ostectomy tibia for osteomyelitis. 3. 3 cm complex secondary wound closure - 06/11/19 1. 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 2. Partial ostectomy tibia for osteomyelitis. 3. Complex secondary wound closure revision reconstruction - 12/28/18 DM2 (diabetes mellitus, type 2) (Chronic) Assessment: 1. Nonhealing ulcer right BKA stump, anterior. 2. Diabetes. 3. PVD. 4. History of osteomyelitis. 5. Nonhealing ulcer left ischial area. 6. Smoker. Plan: Epicord #3 was placed last week. A veil change was done today. Another Epicord will be applied next week. JOSE D wrap for compression. New ulcer on left ischial area. This is on the proximal end of a previous injury that had healed. A wound culture was obtained today. A positive culture will necessitate antibiotic therapy. The ulcer was dressed with Calcium alginate. A wound culture was done on 02/21/20 which was positive for Enterococcus faecalis. She was started on Augmentin and has finished it. Operative bone culture and tissue culture from 12/07/19 showed Staphylococcus aureus. She was placed on Doxycycline and has finished them. Her HgA1c is 10.5 from 12/07/19 and Prealbumin was 14. Encouraged increase in protein intake to help with wound healing. Pain management is now managing her pain medications. Encouraged the patient to stop smoking as it may have deleterious effects on wound healing. Followup 1 week. 111xxx-113xx: [id number] Annalisa subq tissue 20 sq cm/< - ICD-10 - T87.89, L89.322, E11.9, I73.9, Z87.39, F17.200
--- NOTE | 2020-04-28 10:59 | WC ---
CARLOZ MORGAN REVIEWED PT'S CX RESULTS. GIVES N.O.'S BY PHONE FOR DOXYCYCLINE 100MG PO BID X 10 DAYS, 20 TABS NO REFILLS. (PT IS ALREADY ON A TEN DAY COURSE OF DOXY 100MG FOR A SINUS INFECTION). PT CALLED AND UPDATED. ALLERGIES VERIFIED. RX CALLED TO [facility] [place]
== END 2020-05-08 23:59 ==
LOC: WC 13:45
PROVIDERS: Family Provider Internal Medicine; PCP Internal Medicine; Visit Provider Surgery
DX: E11.622 Type 2 diabetes mellitus with other skin ulcer (principal); T87.89 Other complications of amputation stump; Y83.5 Amputation of limb(s) as the cause of abnormal reaction of the patient, or of later complication, without mention of misadventure at the time of the procedure; Z89.511 Acquired absence of right leg below knee; F17.200 Nicotine dependence, unspecified, uncomplicated; L97.812 Non-pressure chronic ulcer of other part of right lower leg with fat layer exposed; L98.412 Non-pressure chronic ulcer of buttock with fat layer exposed; E11.51 Type 2 diabetes mellitus with diabetic peripheral angiopathy without gangrene
CPT/HCPCS: 11042; 11045; 15271; 99213; Q4187; G0463

== ENCOUNTER → 2020-04-25 | Outpatient (CLI) | payer MEDICARE, MEDICAID, SELFPAY ==
[2020-04-25 16:00] VITALS: BMI 36.6
== END | disposition home or self-care (01) ==
LOC: LABSPEC 16:02
PROVIDERS: PCP Internal Medicine; Referring Provider Surgery; Visit Provider Surgery
DX: L98.419 Non-pressure chronic ulcer of buttock with unspecified severity (principal)
CPT/HCPCS: 87070; 87075; 87077; 87186; 87205

== ENCOUNTER 2020-04-30 01:47 | Inpatient (IN) | payer MEDICARE, MEDICAID, SELFPAY ==
[2020-04-28 10:58] VITALS: BMI 35.7
[2020-04-30] VITALS (7 sets, daily range): BP systolic 106–144; BP diastolic 55–90; PULSE 82–97; RESP 15–18; TEMP 36.2–37.2; O2SAT 92–98; BMI 37.0; BMI 36.1; BMI 36.2
--- NOTE | 2020-04-30 01:55 | CT_ITS ---
STUDY: CT SOFT TISSUE NECK WITH CONTRAST REASON FOR EXAM: Female, 49 years old. NECK ABSCESS RADIATION DOSAGE (If Supplied By Facility): CTDIvol = ( 19.73 ) mGy, DLP = ( 492.95 ) mGycm TECHNIQUE: The patient was scanned in a multi-detector CT scanner. High resolution transaxial imaging was performed following intravenous administration of IV 75mL Isovue-370. Sagittal and coronal images were reconstructed. Individualized dose optimization techniques were used for this CT. COMPARISON: None. FINDINGS: Normal bilateral parotid glands. There is edema in the peripheral soft tissues to the left side box spring upholsterer spaces. Normal bilateral parapharyngeal spaces. There is punctate calcification of the carotid bulbs without stenosis. Normal bilateral sublingual. However there is edema within the left-sided submandibular space associated with the left mandible. There is a left perimandibular lymph node measuring 2.1 x 0.3 cm. There is a left-sided jugulodigastric enlarged lymph node measuring 2.1 x 1.9 x 1.4 cm. There are multiple right-sided neck soft tissue lymph nodes. There are reactive appearing right-sided submandibular soft tissue lymph nodes. Normal visualized nasopharynx. Normal retropharyngeal space. Normal perivertebral space. Normal visualized bilateral faucial tonsils. On the right side of the mandible there is a deep periodontal abscess surrounding the base of the second remaining molar. There is a visualized cavity in this tooth. There is a remaining tooth fragment which may represent the first mandibular molar on the right side there is adjacent edema within the soft tissues which is likely of dental origin. There is a midline gas within the soft tissues suggesting a possible fracture of the tooth, see image #57 of the axial views. There is mild soft tissue edema in the right side simona- Mandibular soft tissues. On the left side there is greater facial soft tissue edema adjacent to the anterior and lateral aspect of the mandible and soft tissues which could be associated with potential dental decay. The visualized focal abscess formation is not definitively seen although there is quite a bit of inflammation associated with the left greater than right mandible. The edema extends towards the level of the platysmas. There are enlarged bilateral neck soft tissue lymph nodes as detailed above [facility] 51 there are left greater than right neck soft tissue lymph nodes extending in the neck to the posterior chain. There is no demonstrated solid or cystic mass lesion. There is no abnormal contrast enhancement. Normal epiglottis, bilateral vallecula and hypopharynx. There is hypertrophy of the lingual tonsils. There is slight narrowing of the left side vallecula. . There The pre-epiglottic and paraglottic adipose spaces are normal. Normal visualized bilateral piriform sinuses, aryepiglottic folds, vocal cords, and arytenoid-cricoid articulations. Normal subglottic trachea. Normal bilateral lobes of the thyroid gland. Normal visualized pulmonary apices. Normal visualized paranasal sinuses. There is multilevel degenerative changes of the cervical spine. CT/Soft Tissue Neck WITH Contrast IMPRESSION: Soft tissue edema surrounding the mandible bilaterally, which may related to underlying dental decay. There is a large periodontal abscess in the right side and around the apparent broken second molar. There is edema along the left side of the left mandibular with cellulitis and inflammatory change without definitive focal drainable abscess. There are enlarged reactive appearing neck soft tissue lymph nodes. There is degenerative change within the cervical spine. C4-C5 and especially C5-C6 there is robust posterior osteophyte formation with moderate to severe neural foraminal narrowing and moderate central stenosis. Electronically Signed: Chante Caldwell MD at 3:54 EDT Tel , Service support ,
[2020-04-30 02:23] LABS: Absolute Lymphocyte Count 1.96 X10^3/uL (0.83-4.51); Absolute Neutrophil Count 8.4 X10^3/uL (2.0-7.7); Basophil% 0.9 % (0-1); Eosinophils% 2.7 % (0-5); Hemoglobin 15.1 g/dL (12.0-15.0); Lymphocyte # 1.96 X10^3/ul (4.0); Lymphocyte % 17.5 % (19-41); Mean Corp Hgb Conc 32.8 g/dL (32-36); Mean Corpuscular Hgb 30.3 pg (27.0-32.0); Mean Corpuscular Volume 92.2 fL (81-99); Monocyte# 0.44 X10^3/uL; Monocyte% 3.9 % (0-10); NRBC Flagged by Analyzer 0 % (0-5); Neutrophil # 8.36 X10^3/uL (2.7-7.7); Neutrophil % 74.7 % (47-70); Platelet Count 301 K/mm3 (150-450); RBC Distribution Width CV 14.4 % (11.6-14.6); RBC Distribution Width SD 47.6 fl (35.1-43.9); Red Blood Count 4.99 M/mm3 (4.2-5.4); White Blood Count 11.2 K/mm3 (4.4-11.0)
[2020-04-30] MEDS: Ondansetron 4 MG/2 ML Vial IV (02:39)
[2020-04-30] MEDS: HYDROmorphone 1 MG/ML Syringe IV ×7 (02:40→23:10)
[2020-04-30 02:57] LABS: Anion Gap 5 (5-15); BUN 11 mg/dL (7-18); BUN/Creat Ratio 15.3 RATIO (10-20); Chloride 107 mmol/L (98-107); Creatinine, Serum 0.72 mg/dL (0.55-1.02); EST Glomerular Filtration Rate 92 mL/min (>60); Est Glom Filt Rate - Afr Amer 111 mL/min (>60); Estimated Creatinine Clearance 97.44 ml/min; Glucose 137 mg/dL (74-106); Potassium 3.9 mmol/L (3.5-5.1); Sodium Level 139 mmol/L (136-145)
--- NOTE | 2020-04-30 02:59 | CT_ITS ---
STUDY: CT FACIAL BONES WITHOUT CONTRAST REASON FOR EXAM: Female, 49 years old. FACIAL PAIN/SINUSITIS RADIATION DOSAGE (If Supplied By Facility): CTDIvol = ( 29.38 ) mGy, DLP = ( 547.46 ) mGycm TECHNIQUE: The patient was scanned in a multi detector CT scanner. Sagittal and coronal images were reconstructed. Individualized dose optimization techniques were used for this CT. COMPARISON: Neck soft tissue CT with contrast 04/30/2020 FINDINGS: There is soft tissue edema in the left facial soft tissues surrounding the left mandible. Normal orbital tellez and orbital contents. All there are bilateral middle turbinate quinn bullosa is there is mild narrowing of the nasal passageways. There is minimal ethmoid sinus mucosal thickening. Frontal sinuses are clear. The sphenoid sinuses are clear. The maxillary sinuses are clear. The mastoid air cells are clear. Normal facial bones. Again noted as described on the neck soft tissue CT that there is a broken right mandibular tooth with periodontal abscess formation. CT/Sinus/Facial Bone IMPRESSION: Mild ethmoid sinusitis. Bilateral nasal quinn bullosa''s. Broken right mandibular tooth periodontal abscess. Left facial soft tissue edema. Reactive lymphadenopathy. Electronically Signed: Chante Caldwell MD at 3:57 EDT Tel , Service support ,
[2020-04-30 03:15] LABS: Lactic Acid 1.1 mmol/L (0.4-1.9)
--- NOTE | 2020-04-30 04:14 | PCM.HP.STD ---
Problem List (1) Odontogenic infection of jaw Status: Acute (2) Polyneuropathy due to type 2 diabetes mellitus Status: Chronic (3) History of osteomyelitis Status: Chronic (4) History of necrotizing fasciitis Status: Chronic (5) Status post colostomy Status: Chronic (6) 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 Status: Chronic Comment: right BKA (7) Tobacco abuse Status: Chronic (8) Anxiety and depression Status: Chronic (9) History of gangrene Status: Chronic (10) Hx of right BKA Status: Chronic Comment: 1. Surgical preparation anterior aspect right BKA stump with excisional debridement nonhealing painful ulcer. 2. Partial ostectomy tibia for osteomyelitis. 3. 3 cm complex secondary wound closure - 06/11/19 1. 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 2. Partial ostectomy tibia for osteomyelitis. 3. 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 Her symptoms started 4 days before presentation. She reported she had nasal congestion and she was diagnosed with sinusitis and started on antibiotics (doxycycline). She reported later she developed swelling of her left jaw. She saw her PCP 2 times before she eventually came to the emergency department. She reports difficulty with chewing; pain and increasing warmth at left jaw as well as some erythema to her left jaw. She denies any fever or chills. Past Medical History Past Medical History (Chronic Problems): Chronic Problems (Last Reviewed 04/28/20 @ 10:57 by Tereza Buckley) Polyneuropathy due to type 2 diabetes mellitus (Chronic) History of osteomyelitis (Chronic) History of necrotizing fasciitis (Chronic) Status post colostomy (Chronic) 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 (Chronic) right BKA Tobacco abuse (Chronic) Anxiety and depression (Chronic) History of gangrene (Chronic) Hx of right BKA (Chronic) 1. Surgical preparation anterior aspect right BKA stump with excisional debridement nonhealing painful ulcer. 2. Partial ostectomy tibia for osteomyelitis. 3. 3 cm complex secondary wound closure - 06/11/19 1. 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 2. Partial ostectomy tibia for osteomyelitis. 3. Complex secondary wound closure revision reconstruction - 12/28/18 Chronic pain (Chronic) PVD (peripheral vascular disease) (Chronic) HLD (hyperlipidemia) (Chronic) DM2 (diabetes mellitus, type 2) (Chronic) Benign essential HTN (Chronic) Medical History: Medical History (Last Reviewed 04/30/20 @ 06:[address] Cristopher Bob MD) History of necrotizing fasciitis (Chronic) Z87.39 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 (Chronic) T87.89, M79.604 right BKA Tobacco abuse (Chronic) Z72.0 Anxiety and depression (Chronic) F41.9, F32.9 History of gangrene (Chronic) Z87.2 Osteomyelitis (Inactive) M86.9 PVD (peripheral vascular disease) (Chronic) I73.9 HLD (hyperlipidemia) (Chronic) E78.5 DM2 (diabetes mellitus, type 2) (Chronic) E11.9 Benign essential HTN (Chronic) I10 Anxiety F41.9 Diabetes E11.9 Neuropathy G62.9 Raynaud disease I73.00 Vascular disease I99.9 Allergies fentanyl Allergy (Verified 04/28/20 10:56) Other CONFUSION morphine Adverse Reaction (Verified 04/28/20 10:56) Upset Stomach CONFUSION Home Medications: Ambulatory Orders Medication Instructions Recorded pregabalin 150 mg capsule 200 mg PO TID cap 06/03/19 aspirin 81 mg tablet,delayed 81 mg PO DAILY #90 tab 07/01/19 release atorvastatin 40 mg tablet 40 mg PO DAILY #90 tab 07/01/19 clopidogrel 75 mg tablet 75 mg PO DAILY #90 tab 07/01/19 pantoprazole 40 mg tablet,delayed 40 mg PO QDAY #90 tab 07/01/19 release insulin detemir U-100 100 unit/mL See Rx Instructions .ROUTE 11/24/19 (3 mL) subcutaneous pen .COMPLEX #15 ml duloxetine 30 mg capsule,delayed 60 mg PO BID #180 cap 01/06/20 release baclofen 10 mg tablet 10 mg PO BID tab 03/16/20 ibuprofen 200 mg capsule 200 mg PO Q6H PRN 03/16/20 oxycodone-acetaminophen 5 mg-325 1 tab PO .q 12 hrs PRN tab 03/16/20 mg tablet dulaglutide 1.5 mg/0.5 mL 1.5 mg SUBCUT QWEEK #2 ml 04/19/20 subcutaneous pen injector insulin aspart U-100 100 unit/mL 14 unit SC TID 90 Days #37.8 ml 04/19/20 (3 mL) subcutaneous pen lactobacillus combination no.8 3 3,000 mmu cells PO DAILY 90 Days 04/19/20 billion cell capsule #90 cap loratadine 10 mg tablet 10 mg PO DAILY #90 tab 04/19/20 doxycycline hyclate 100 mg tablet 100 mg PO BID #20 tab 04/25/20 fluticasone propionate 50 2 spray INTRANASAL DAILY #15.8 g 04/25/20 mcg/actuation nasal spray,suspension Varenicline [Chantix] 1 mg PO DAILY 04/30/20 Surgical History: Surgical History (Last Reviewed 04/30/20 @ 06:[address] Cristopher Bob MD) Status post colostomy (Chronic) Z93.3 Hx of right BKA (Chronic) Z89.511 1. Surgical preparation anterior aspect right BKA stump with excisional debridement nonhealing painful ulcer. 2. Partial ostectomy tibia for osteomyelitis. 3. 3 cm complex secondary wound closure - 06/11/19 1. 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 2. Partial ostectomy tibia for osteomyelitis. 3. 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 Cristopher Bob MD) Father Cancer Mother Hypertension Fibromyalgia Thyroid disorder Brother Diabetes Grandmother Myocardial infarction Grandfather Cancer History Items: Diabetes Review of Systems Constitutional: Reports: Anorexia. Denies: Chills, Fever, Weight Change HEENT: Reports: Sinus Congestion. Denies: Head Aches, Sinus Drainage Cardiovascular: Denies: Chest Pain, Palpitations Respiratory: Denies: Cough, Shortness of breath at rest, Sputum production Gastrointestinal: Denies: Abdominal Pain, Nausea, Vomiting Genitourinary: Denies: Dysuria Musculoskeletal: Denies: Joint Pain, Joint Tenderness Skin: Reports: Wounds - On stump of right below the knee amputation. Denies: Rash Neurological: Denies: Numbness, Tingling, Focal weakness Psychiatric: Denies: Anxiety, Depression, Homicidal Ideations, Suicidal Ideations Hematologic/ Lymphatic: Denies: Easy Bruising, Easy Bleeding VTE Information - Inpt Only VTE Present on Admission: No VTE Mechan Device Prophylaxis: None VTE Pharm Prophylaxis ordered?: Yes Patient Problems: Active and Suspected Problems (Last Reviewed 04/28/20 @ 10:57 by Tereza Buckley) Odontogenic infection of jaw (Acute) - Physical Exam Vitals/I&O's: Vital Signs Temp Pulse Resp BP Pulse Ox 97.4 F L 87 15 141/90 H 97 04/30/20 01:48 04/30/20 03:48 04/30/20 03:48 04/30/20 03:48 04/30/20 03:48 Oxygen Delivery Method Room Air Weight: 110.6 kg Body Mass Index (BMI) 37.0 Finger Stick Blood Glucose 125 General: Alert, Oriented x3, Cooperative HEENT: Atraumatic, PERRLA, EOMI, Normocephalic, - - Poor dentition. Swelling of left jaw. Tender left jaw. Mild erythema of left jaw. Neck: Supple, No JVD, Negative Carotid Bruits Lungs: No rhonchi, No wheeze, No rales, Diminished Cardiovascular: Regular rate, Regular Rhythm, Normal S1, Normal S2, No murmurs Abdomen: Bowel Sounds Present, Soft, Non Tender Extremities: No edema, Capillary Refill Less than 3 Seconds, - - Left below the knee amputation Skin: No rashes, Ulcer/ Wound - On the stump of left below the knee amputation Musculoskeletal: No Tenderness to Palpation of Joints or Extremities Neurological: Cranial nerves II-XII grossly intact Psych/Mental Status: Normal Affect, Appropriate Laboratory Results 04/30/20 02:01: WBC 11.2 H, RBC 4.99, Hgb 15.1 H, Hct 46.0, MCV 92.2, MCH 30.3, MCHC 32.8, RDW Std Deviation 47.6 H, RDW Coeff of Mona 14.4, Plt Count 301, MPV 10.0, Immature Gran % (Auto) 0.300, Neut % (Auto) 74.7 H, Lymph % (Auto) 17.5 L, Iroquois % (Auto) 3.9, Eos % (Auto) 2.7, Baso % (Auto) 0.9, Absolute Neuts (auto) 8.4 H, Absolute Lymphs (auto) 1.96, Nucleated RBC % 0 04/30/20 02:01: Sodium 139, Potassium 3.9, Chloride 107, Carbon Dioxide 27.0, Anion Gap 5, BUN 11, Creatinine 0.72, Estim Creat Clear Calc 97.44, Est GFR (MDRD) Af Amer 111, Est GFR (MDRD) Non-Af 92, BUN/Creatinine Ratio 15.3, Glucose 137 H, Calcium 9.0 04/30/20 02:01: Lactic Acid 1.1 Assessment/Plan All Active Problems (Last Reviewed 04/28/20 @ 10:57 by Tereza Buckley) Odontogenic infection of jaw (Acute) The patient is a 49 year old F with a significant history of right below the knee amputation; diabetes mellitus; PAD status post stents who presents emergency department with left jaw swelling; difficulty chewing at the left jaw; pain; increased warmth of left jaw and mild erythema to her left jaw Odontogenic infection of the lower jaw. Soft tissue neck CT showed soft tissue edema surrounding mandible bilaterally, which may be related to underlying dental decay; large periodontal abscess in the right side and around apparent broken second molar;edema along left side of left mandible with cellulitis and inflammatory change without definite focal drainage abscess. Also presents was enlarged reactive lymph nodes. CT facial bone without contrast: Acute right mandibular tooth. Dental abscess. Left soft tissue edema. Reactive lymphadenopathy. Patient received clindamycin in the emergency department. Will start patient on Zosyn. Will consult orofacial surgeon. On aspirin and Plavix because of peripheral artery disease with stents. Continue aspirin. Hold Plavix till surgical evaluation. Received Dilaudid IV at emergency department. Dilaudid PRN continued. Was on home Percocet. PRN acetaminophen ordered. PRN oxycodone ordered. C4-[address] scan Patient to follow-up outpatient. Tobacco abuse Counseled She is yet to start Chantix that was prescribed outpatient. Patient is is agreeable to Chantix being started at the hospital. Chantix ordered. She reports allergy to nicotine patch. Diabetes mellitus Patient with mild hyperglycemia on presentation. Will put on calorie controlled diet. Because of anorexia with difficulty chewing placed on soft diet. Reports basal, prandial and correction scale insulin at home. Hold basal and prandial insulin at this time. Accu-Chek with correction scale insulin ordered. On once weekly dulaglutide injection. Right BKA wound Continue home dressing. Change daily. Wound care consult. DVT prophylaxis Subcutaneous Lovenox Inpatient E&M: 99327 Init Hosp L3
--- NOTE | 2020-04-30 04:24 | ED.VISSUMM ---
- ER Visit Summary Date of Service: 04/30/20 Chief Complaint: [Facial pain and swelling] History of Present Illness: The patient is a 49 F [Angelitotz to the emergency department with facial pain and swelling that started 6 or 7 days ago. Patient apparently started on doxycycline for suspected sinus infection by her primary care physician. Patient continues to have increased swelling to her face and pressure in her face and behind her left eye. She denies fever, chills, or sweats. She denies any trauma to her face. Patient has history of diabetes and high cholesterol.] Physical Examination: [HEENT-PERRLA, EOMI. Cranial nerves II through XII grossly intact. TMs clear. Mucous membranes moist. No adenopathy. Patient has diffuse edema noted over the left mandible and infra mandibular region on the left with adenopathy noted. No significant tenderness over the right mandible. No significant overt cellulitis noted. Floor the mouth is soft. No evidence for Олег's angina. Cardiovascular-regular rate and rhythm without murmur or ectopy Lungs-clear to auscultation, chest wall stable without crepitus or subcu emphysema Abdomen-normoactive bowel sounds, soft, nontender, no rebound or rigidity, no peritoneal signs. Extremities-intact ?4, normal range of motion, normal pulses, atraumatic] Test Results: [CBC with differential obtained showed a white count 11.2, hemoglobin 15, hematocrit 46, placed 301. Chemistries unremarkable. Lactate was 1.1. CT scan of the soft tissue neck obtained read by radiology as soft tissue edema surrounding the mandible bilaterally which may be related to underlying dental decay. There is a large periodontal abscess on the right side and around the apparent broken second molar. There is edema along the left side of the left mandible with cellulitis and inflammatory change without definitive focal drainable abscess. There are enlarged reactive appearing neck soft tissue lymph nodes.] Emergency Department Course and Treatment: [IV line established. Patient was started on clindamycin 900 mg IV. Patient given Dilaudid and Zofran for pain. I attempted to contact Dr. 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 I discussed case with hospitalist will evaluate patient for admission] Treatment Plan: [Admit] Disposition: [Admit] Impression: [Left facial abscess/cellulitis-failed outpatient therapy] This note was generated with Dragon dictation software. It may contain incorrect words, spelling, and punctuation that were not noted in review of the chart prior to signing ED Disposition - Plan for ED Patient: Referrals: Sasha Rodriguez MD [Primary Care Provider] -
--- NOTE | 2020-04-30 06:56 | NURSING ---
This RN in room to administer morning medications, and ice pack provided to pt for jaw pain. Dilaudid previously administered to pt via IV @ 0618. Pt c/o of still being in pain. Explained to pt that medication needs time to work in order to provide relief. Pt then stated that she did not want this RN in her room, stating You did not give me that pain medication! Get out of my room, I don't want you in here!!. Explained to pt that I am sorry she is having pain, and that I am unable to give another dose of Dilaudid at this time. gantry rigger Francie notified.
--- NOTE | 2020-04-30 07:00 | NURSING ---
Was notified by Galo Fortune that pt wanted to speak with charge nurse. Pt yelling when I entered her room. Demanding more pain medication, states her nurse did not give her the IV Dilaudid she was ordered. Dilaudid 1mg was administered @ 0618 in the emar. I told pt that I could contact the doctor to notify him that she was still having pain however I was unable to give her more Dilaudid at this time. Pt more upset and states that we were lying and holding her meds from her. Pt continued to swear and scream as nurse exited the room.
[2020-04-30] MEDS: oxyCODONE 5 MG Tablet PO ×3 (07:18→20:31)
[2020-04-30] MEDS: Pregabalin 50 MG Capsule 200 MG PO ×3 (07:21→21:32)
--- NOTE | 2020-04-30 07:22 | NURSING ---
Medication given with street light mechanic as second nurse.
[2020-04-30] MEDS: Insulin Lispro 100 UNIT/ML INSULN.PEN SC ×4 (07:42→21:37)
[2020-04-30] MEDS: Ketorolac 30 MG/ML Syringe IV ×3 (07:54→21:25)
[2020-04-30] MEDS: 0.9% Saline Lock 10 ML Syringe IV ×6 (07:55→23:12)
[2020-04-30 08:06] LABS: Bedside Glucose 202 mg/dL (70-110)
--- NOTE | 2020-04-30 08:36 | NURSING ---
pt stating I've been in pain for 5-6 days and nobody cares. This nurse explained medications given given this morning, and warm compress if kept on face will help. Pt continues to express I was never got that damn pain medication. pt in bed, bed exit set, call light within reach.
[2020-04-30] MEDS: Pantoprazole Sodium 40 MG Tablet PO (09:57)
[2020-04-30] MEDS: Varenicline 1 MG Tablet PO (09:57)
[2020-04-30] MEDS: Baclofen 10 MG Tablet PO ×2 (09:57→21:32)
[2020-04-30] MEDS: DULoxetine Hcl 60 MG Capsule PO ×2 (09:57→21:32)
[2020-04-30] MEDS: Aspirin E.C. 81 MG Tablet PO (09:57)
[2020-04-30] MEDS: Loratadine 10 MG Tablet PO (09:57)
[2020-04-30] MEDS: Enoxaparin 40 MG/0.4 ML Syringe SC (09:57)
[2020-04-30] MEDS: Fluticasone 0.05% 1 SPRAY NASAL.SRY 2 SPRAY NASAL (09:58)
--- NOTE | 2020-04-30 10:06 | NURSING ---
opened and explained medications in front of pt. Dilaudid opened and given in front of pt and with education trainer present. tolerated well sitting in bed call light within reach.
--- NOTE | 2020-04-30 11:13 | NURSING ---
pt reports pain 7/10 falling asleeping/snoring while talking with this nurse. Resting in bed call light within reach. will continue to monitor.
[2020-04-30 11:35] LABS: Bedside Glucose 268 mg/dL (70-110)
[2020-04-30 16:35] LABS: Bedside Glucose 286 mg/dL (70-110)
[2020-04-30] MEDS: Juven (unflavored) Packet 1 PACKET PO (17:22)
[2020-04-30] MEDS: Insulin Lispro 100 UNIT/ML INSULN.PEN 14 UNIT SC (17:22)
--- NOTE | 2020-04-30 18:17 | NURSING ---
Medication given with chargeback specialist as second nurse.
[2020-04-30] MEDS: Acetaminophen 325 MG Tablet 650 MG PO (20:31)
[2020-04-30] MEDS: Senna/Docusate Sodium 1 Tablet 2 TABLET PO (21:32)
[2020-04-30] MEDS: Atorvastatin Calcium 40 MG Tablet PO (21:33)
[2020-04-30 21:46] LABS: Bedside Glucose 201 mg/dL (70-110)
[2020-05-01] MEDS: oxyCODONE 5 MG Tablet PO ×4 (00:54→21:21)
[2020-05-01 00:57] VITALS: BP 99/66; PULSE 83; RESP 16; TEMP 36.4; O2SAT 92
[2020-05-01] MEDS: 0.9% Saline Lock 10 ML Syringe IV ×5 (02:55→23:30)
[2020-05-01] MEDS: HYDROmorphone 1 MG/ML Syringe IV ×5 (02:55→23:30)
[2020-05-01 04:00] VITALS: BP 98/63; PULSE 76; RESP 18; TEMP 36.9; O2SAT 92
[2020-05-01] MEDS: Pregabalin 50 MG Capsule 200 MG PO ×3 (05:11→21:21)
[2020-05-01] MEDS: Ketorolac 30 MG/ML Syringe IV ×3 (05:12→21:22)
[2020-05-01 06:31] LABS: Absolute Lymphocyte Count 1.41 X10^3/uL (0.83-4.51); Absolute Neutrophil Count 4.3 X10^3/uL (2.0-7.7); Basophil# 0.07 X10^3/uL; Basophil% 1.1 % (0-1); Eosinophil# 0.29 X10^3/uL; Eosinophils% 4.5 % (0-5); Hematocrit 38.4 % (37-47); Hemoglobin 12.4 g/dL (12.0-15.0); Lymphocyte # 1.41 X10^3/ul (4.0); Lymphocyte % 21.8 % (19-41); Mean Corp Hgb Conc 32.3 g/dL (32-36); Mean Corpuscular Hgb 30.3 pg (27.0-32.0); Mean Corpuscular Volume 93.9 fL (81-99); Mean Platelet Vol. 10.1 fl (6.2-12.0); Monocyte# 0.37 X10^3/uL; Monocyte% 5.7 % (0-10); NRBC Flagged by Analyzer 0 % (0-5); Neutrophil # 4.31 X10^3/uL (2.7-7.7); Neutrophil % 66.7 % (47-70); Platelet Count 222 K/mm3 (150-450); RBC Distribution Width CV 14.4 % (11.6-14.6); RBC Distribution Width SD 48.8 fl (35.1-43.9); Red Blood Count 4.09 M/mm3 (4.2-5.4); White Blood Count 6.5 K/mm3 (4.4-11.0)
[2020-05-01 07:10] VITALS: O2SAT 95
[2020-05-01] MEDS: Aspirin E.C. 81 MG Tablet PO (07:50)
[2020-05-01] MEDS: Juven (unflavored) Packet 1 PACKET PO ×2 (07:50→17:03)
[2020-05-01 07:55] VITALS: BP 101/63; PULSE 72; RESP 16; TEMP 36.6; O2SAT 95
[2020-05-01] MEDS: Insulin Lispro 100 UNIT/ML INSULN.PEN 14 UNIT SC ×3 (08:44→17:03)
[2020-05-01] MEDS: Insulin Lispro 100 UNIT/ML INSULN.PEN SC ×2 (08:44→21:22)
[2020-05-01 08:50] LABS: Bedside Glucose 289 mg/dL (70-110)
--- NOTE | 2020-05-01 09:48 | NURSING ---
wound photo: right stump
--- NOTE | 2020-05-01 09:49 | NURSING ---
wound photo: left gluteal/perineal crease
[2020-05-01] MEDS: DULoxetine Hcl 60 MG Capsule PO ×2 (10:14→21:22)
[2020-05-01] MEDS: Baclofen 10 MG Tablet PO ×2 (10:14→21:22)
[2020-05-01] MEDS: Varenicline 1 MG Tablet PO (10:14)
[2020-05-01] MEDS: Enoxaparin 40 MG/0.4 ML Syringe SC (10:14)
[2020-05-01] MEDS: Pantoprazole Sodium 40 MG Tablet PO (10:14)
[2020-05-01] MEDS: Fluticasone 0.05% 1 SPRAY NASAL.SRY 2 SPRAY NASAL (10:14)
[2020-05-01] MEDS: Loratadine 10 MG Tablet PO (10:14)
--- NOTE | 2020-05-01 10:20 | NURSING ---
medication given with handcrew foreman as second nurse.
--- NOTE | 2020-05-01 10:52 | CASEMGMT ---
RN CM Assessment Note Intro role of CM to patient in room. Patient is awake, alert and able to participate in assessment. Presentation: swelling L jaw Diagnosis: infection of lower jaw, abscess PCP: Dr. Rodriguez Specialists: Dr. Jose Guadalupe Argueta, endocrinology, Dr. Guadarrama, surgery, Wound [facility] Insurance: [facility], [facility] (straight medicaid) Preferred Pharmacy: [facility] [place] Prescription Benefit: yes LNOK: Mother, Taylor Craig Living Arrangements: Lives independently. States she is able to complete own ADL's, IADL's. uses wheelchair and knee scooter. Patient denies needs at this time. Tranportation: Drives DME: Wheelchair, knee scooter, BGM machine and supplies. Pt would like raised toilet seat- script signed by Dr. Fung and given to patient who will have family get from store. HHC: none SNF: none Patient DC Goals: Home on dc DC Plan: Home CM available for discharge planning coordination. Contact CM for any concerns/needs that may arise. Cristine HEATH RN ACM
[2020-05-01 11:31] LABS: Bedside Glucose 113 mg/dL (70-110)
--- NOTE | 2020-05-01 15:27 | PCM.HOSP.N ---
Hospitalist Note Patient was seen and examined today, she still complains of left lower jaw pain, she will not be able to be seen by the oral surgeon until tomorrow as he is out of town. For now, patient will remain on pain medications and will be treated with antibiotics.
--- NOTE | 2020-05-01 15:39 | NURSING ---
Given with lead inspector as second nurse.
[2020-05-01 15:41] VITALS: BP 114/61; PULSE 68; RESP 18; TEMP 36.8; O2SAT 98
[2020-05-01 17:10] LABS: Bedside Glucose 116 mg/dL (70-110)
[2020-05-01] MEDS: Atorvastatin Calcium 40 MG Tablet PO (21:22)
[2020-05-01 21:36] VITALS: BP 142/77; PULSE 74; RESP 16; TEMP 36.7; O2SAT 96
[2020-05-01 22:06] LABS: Bedside Glucose 171 mg/dL (70-110)
[2020-05-02] MEDS: oxyCODONE 5 MG Tablet PO ×3 (03:32→12:38)
[2020-05-02 03:36] VITALS: BP 140/76; PULSE 69; RESP 16; TEMP 36.8; O2SAT 94
[2020-05-02] MEDS: HYDROmorphone 1 MG/ML Syringe IV ×3 (06:15→14:30)
[2020-05-02] MEDS: Ketorolac 30 MG/ML Syringe IV ×2 (06:17→14:14)
[2020-05-02] MEDS: Pregabalin 50 MG Capsule 200 MG PO ×2 (06:17→14:17)
[2020-05-02] MEDS: 0.9% Saline Lock 10 ML Syringe IV (06:20)
[2020-05-02] MEDS: Insulin Lispro 100 UNIT/ML INSULN.PEN 14 UNIT SC ×2 (08:16→12:25)
[2020-05-02] MEDS: Juven (unflavored) Packet 1 PACKET PO (08:18)
[2020-05-02] MEDS: Aspirin E.C. 81 MG Tablet PO (08:18)
[2020-05-02] MEDS: Baclofen 10 MG Tablet PO (08:23)
[2020-05-02] MEDS: Fluticasone 0.05% 1 SPRAY NASAL.SRY 2 SPRAY NASAL (08:23)
[2020-05-02] MEDS: Loratadine 10 MG Tablet PO (08:23)
[2020-05-02] MEDS: DULoxetine Hcl 60 MG Capsule PO (08:23)
[2020-05-02] MEDS: Varenicline 1 MG Tablet PO (08:24)
[2020-05-02] MEDS: Pantoprazole Sodium 40 MG Tablet PO (08:24)
[2020-05-02] MEDS: Enoxaparin 40 MG/0.4 ML Syringe SC (08:24)
[2020-05-02 09:10] LABS: Bedside Glucose 76 mg/dL (70-110)
[2020-05-02 10:00] VITALS: BP 115/71; PULSE 78; RESP 16; TEMP 36.9; O2SAT 94
[2020-05-02 11:45] LABS: Bedside Glucose 120 mg/dL (70-110)
--- NOTE | 2020-05-02 12:42 | PCM.CONS.B ---
Problem List (1) Polyneuropathy due to type 2 diabetes mellitus Status: Chronic - Consult Date of Consult: 05/02/20 Patient seen resting comfortably in her bed. States she feels much better since admission. On examination there is no airway issues and patient handling secretions well. Her swelling and redness is markedly reduced per the patient and the RN. She has no trismus but mild swelling along the left mandible. She can posture her tongue all the way out and swallows without pain. At this point the WBC has normalized her swelling has markedly reduced and I feel she is OK for d/c to home on antibiotics and to f/u with her dentist CRISTINE for the needed dental treatment.
--- NOTE | 2020-05-02 15:15 | DCINST_ITS ---
- Discharge Diagnoses Current Active Problems: Current Active and Chronic Problems (Last Reviewed 04/30/20 @ 06:[address] Cristopher Bob MD) Odontogenic infection of jaw (Acute) You will use the following diet at home:: Calorie/Carbohydrate Controlled (specify 1200, 1400, etc) - 1800 flaquita Your food should be the consistency of: Regular Your liquids should be the consistency of: Regular/Thin Discharge Activity: Return to Normal Activity Weight Bearing Status: Full weight bearing Additional Instructions: FOLLOW UP WITH YOUR DENTIST WITHIN 7 DAYS Allergies/Adverse Reactions: Allergies fentanyl Allergy (Verified 04/28/20 10:56) Other CONFUSION morphine Adverse Reaction (Verified 04/28/20 10:56) Upset Stomach CONFUSION Medications to take at Discharge pregabalin 150 mg capsule 200 mg PO TID cap 06/03/19 aspirin 81 mg tablet,delayed release 81 mg PO DAILY #90 tab 07/01/19 atorvastatin 40 mg tablet 40 mg PO DAILY #90 tab 07/01/19 clopidogrel 75 mg tablet 75 mg PO DAILY #90 tab 07/01/19 pantoprazole 40 mg tablet,delayed release 40 mg PO QDAY #90 tab 07/01/19 insulin detemir U-100 100 unit/mL (3 mL) subcutaneous pen See Rx Instructions .ROUTE .COMPLEX #15 ml 11/24/19 duloxetine 30 mg capsule,delayed release 60 mg PO BID #180 cap 01/06/20 baclofen 10 mg tablet 10 mg PO BID tab 03/16/20 ibuprofen 200 mg capsule 200 mg PO Q6H PRN 03/16/20 oxycodone-acetaminophen 5 mg-325 mg tablet 1 tab PO .q 12 hrs PRN tab 03/16/20 dulaglutide 1.5 mg/0.5 mL subcutaneous pen injector 1.5 mg SUBCUT QWEEK #2 ml 04/19/20 insulin aspart U-100 100 unit/mL (3 mL) subcutaneous pen 14 unit SC TID 90 Days #37.8 ml 04/19/20 lactobacillus combination no.8 3 billion cell capsule 3,000 mmu cells PO DAILY 90 Days #90 cap 04/19/20 loratadine 10 mg tablet 10 mg PO DAILY #90 tab 04/19/20 fluticasone propionate 50 mcg/actuation nasal spray,suspension 2 spray INTRANASAL DAILY #15.8 g 04/25/20 Insulin Detemir [Levemir FlexPen] 58 units SQ QHS 04/30/20 Varenicline [Chantix] 1 mg PO DAILY 04/30/20 Amoxicillin/Potassium Clav [Augmentin 875-125 Tablet] 1 ea PO BIDCM #20 tab 05/02/20 Oxycodone [Oxyir] 5 mg PO Q4H PRN PRN 7 Days #20 tab 05/02/20 The following prescriptions were given: Amoxicillin/Potassium Clav [Augmentin 875-125 Tablet] 1 ea PO BIDCM #20 tab Transmission Status: Pending to BHARATH GRIDER RD Oxycodone [Oxyir] 5 mg PO Q4H PRN PRN 7 Days #20 tab PRN Reason: Pain Score 4-10/10 Transmission Status: Received by BHARATH GRIDER RD Primary Care Physician: Sasha Rodriguez MD [Primary Care Provider] - Please follow up with your Primary Care Physician in: as scheduled Test Results: Test results from this visit will be discussed in further detail at your follow- up appointment, if applicable.
[2020-05-02 16:00] VITALS: BP 147/73; PULSE 69; RESP 16; TEMP 36.4; O2SAT 99
--- NOTE | 2020-05-02 18:16 | PCM.DC.SUM ---
Discharge Date and Diagnosis Date of Admission: 04/30/20 Date of Discharge: 05/02/20 - Primary Discharge Diagnosis Acute Problems: #1 right-sided tooth abscess #2 left-sided gum infection #3 type 2 diabetes #4 essential hypertension #5 cellulitis of the left facial mandibular area - Secondary Discharge Diagnosis Chronic Problems: Chronic Problems (Last Reviewed 04/30/20 @ 06:[address] Cristopher Bob MD) Polyneuropathy due to type 2 diabetes mellitus (Chronic) History of osteomyelitis (Chronic) History of necrotizing fasciitis (Chronic) Status post colostomy (Chronic) 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 (Chronic) right BKA Tobacco abuse (Chronic) Anxiety and depression (Chronic) History of gangrene (Chronic) Hx of right BKA (Chronic) 1. Surgical preparation anterior aspect right BKA stump with excisional debridement nonhealing painful ulcer. 2. Partial ostectomy tibia for osteomyelitis. 3. 3 cm complex secondary wound closure - 06/11/19 1. 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 2. Partial ostectomy tibia for osteomyelitis. 3. Complex secondary wound closure revision reconstruction - 12/28/18 Chronic pain (Chronic) PVD (peripheral vascular disease) (Chronic) HLD (hyperlipidemia) (Chronic) DM2 (diabetes mellitus, type 2) (Chronic) Benign essential HTN (Chronic) Hospital Course and Treatment Consultations 04/30/20 05:36 Consult: Onc/Wound/double end sewer Routine Comment: Reason for Consult:: Wound on right BKA Operations: None, - - Surgery 12/07/19 - 1. Surgical preparation right BKA stump with incision and drainage and excisional debridement infected hematoma (19.25 cm2). 2. Partial ostectomy tibia for osteomyelitis. Procedures: None Summary of Care Provided: The patient is a 49 year old F was seen in the emergency room at [facility] with complaints of left and right-sided jaw pain and swelling over the left jaw area. Work-up in the emergency room included a CT of the soft tissue neck which revealed soft tissue edema surrounding the mandible bilaterally, there was noted to be a periodontal abscess in the right side, there was noted to be edema along the left side of the mandible with cellulitis and inflammatory changes without focal drainable abscess. Patient was admitted to MedSurg 3, she was placed on IV antibiotics, and seen in consultation by oral surgery who did not feel the patient required immediate surgery, he recommended that the patient follow-up with her dentist as an outpatient. On 05/02/2020, patient was seen and examined: On examination she appeared in good health and spirits, she does not appear to be in any distress. Vital signs as documented. Skin warm and dry and without overt rashes. Neck without JVD, thyroid appears normal, trachea is midline, neck is supple. There is generalized swelling noted over the patient's left mandibular area with warmth over the region noted. Lungs clear, normal air movement was noted. Heart exam notable for regular rhythm, normal sounds and absence of murmurs, rubs or gallops. Abdomen unremarkable and without evidence of organomegaly, masses, or abdominal aortic enlargement, bowel sounds are present in all 4 quadrants, no abdominal tenderness was noted. Extremities nonedematous, no cyanosis was noted, no clubbing was noted. Neuro: Cranial nerves II through XII are grossly intact, no focal motor deficits were noted, sensation to light touch and pinprick is intact, motor exam 5/5 throughout. Psych: Patient is alert and oriented x3, she does not appear anxious or depressed, she does not appear agitated. Patient was felt to be stable for discharge on 05/02/2020. - Physical Exam Vitals/I&O's: Vital Signs Temp Pulse Resp BP Pulse Ox 97.6 F L 69 16 147/73 H 99 05/02/20 16:00 05/02/20 16:00 05/02/20 16:00 05/02/20 16:00 05/02/20 16:00 Oxygen Delivery Method Room Air Weight: 108 kg Body Mass Index (BMI) 36.1 Finger Stick Blood Glucose 125 Intake and Output for Last 24 Hours 04/30/20 05/01/20 05/02/20 23:59 23:59 23:59 Intake Total 1956 / 2256 3010 / 3010 128.54 / 128.54 Output Total 2200 / 2200 1400 / 1400 2300 / 2300 Balance -244 / 56 1610 / 1610 -2171.46 / -2171.46 Microbiology Past 72 Hours 04/30/20 02:01 Blood Culture (Wb) - Right Hand Blood Culture - Preliminary No growth in 48 hours. 04/30/20 02:01 Blood Culture (Wb) - Left Hand Blood Culture - Preliminary No growth in 48 hours. Laboratory Results 05/01/20 21:20: POC Glucose 171 H 05/02/20 07:29: POC Glucose 76 05/02/20 11:32: POC Glucose 120 H Discharge Activity: Return to Normal Activity Weight Bearing Status: Full weight bearing Home Medications: Medications to take at Discharge pregabalin 150 mg capsule 200 mg PO TID cap 06/03/19 aspirin 81 mg tablet,delayed release 81 mg PO DAILY #90 tab 07/01/19 atorvastatin 40 mg tablet 40 mg PO DAILY #90 tab 07/01/19 clopidogrel 75 mg tablet 75 mg PO DAILY #90 tab 07/01/19 pantoprazole 40 mg tablet,delayed release 40 mg PO QDAY #90 tab 07/01/19 insulin detemir U-100 100 unit/mL (3 mL) subcutaneous pen See Rx Instructions .ROUTE .COMPLEX #15 ml 11/24/19 duloxetine 30 mg capsule,delayed release 60 mg PO BID #180 cap 01/06/20 baclofen 10 mg tablet 10 mg PO BID tab 03/16/20 ibuprofen 200 mg capsule 200 mg PO Q6H PRN 03/16/20 oxycodone-acetaminophen 5 mg-325 mg tablet 1 tab PO .q 12 hrs PRN tab 03/16/20 dulaglutide 1.5 mg/0.5 mL subcutaneous pen injector 1.5 mg SUBCUT QWEEK #2 ml 04/19/20 insulin aspart U-100 100 unit/mL (3 mL) subcutaneous pen 14 unit SC TID 90 Days #37.8 ml 04/19/20 lactobacillus combination no.8 3 billion cell capsule 3,000 mmu cells PO DAILY 90 Days #90 cap 04/19/20 loratadine 10 mg tablet 10 mg PO DAILY #90 tab 04/19/20 fluticasone propionate 50 mcg/actuation nasal spray,suspension 2 spray INTRANASAL DAILY #15.8 g 04/25/20 Insulin Detemir [Levemir FlexPen] 58 units SQ QHS 04/30/20 Varenicline [Chantix] 1 mg PO DAILY 04/30/20 Amoxicillin/Potassium Clav [Augmentin 875-125 Tablet] 1 ea PO BIDCM #20 tab 05/02/20 Oxycodone [Oxyir] 5 mg PO Q4H PRN PRN 7 Days #20 tab 05/02/20 Following Prescriptions Were Given to Patient: Amoxicillin/Potassium Clav [Augmentin 875-125 Tablet] 1 ea PO BIDCM #20 tab Transmission Status: Received by BHARATH GRIDER RD Oxycodone [Oxyir] 5 mg PO Q4H PRN PRN 7 Days #20 tab PRN Reason: Pain Score 4-10/10 Transmission Status: Received by BHARATH GRIDER RD Primary Care Physician: Sasha Rodriguez MD [Primary Care Provider] - Please follow up with your Primary Care Physician in: as scheduled Disposition: Home Minutes spent on discharge:: 31 Patient Condition:: Stable Medical Necessity - Tobacco Use Smoking Status: Current every day smoker Tobacco Use: Cigarettes Meaningful Use Info Meaningful Use Diagnoses (Choose all that apply): None applicable Inpatient E&M: [id number] Disch Hosp
--- NOTE | 2020-05-03 13:47 | CASEMGMT ---
ADIN HALEY Discharge Follow-up Phone Call: DULCERafael: Norberto Strata: 3 Call Date: 05/03/20 Discharge Date: 05/02/20 Time of Call: 1345 Duration: 3 min Admitting Diagnosis: Odontogenic infection ADIN HALEY completed follow-up phone call after recent hospitalization. Patient states she is ok and has dentist appointment tomorrow. Patient had no questions regarding discharge instructions. Patient was able to fill prescriptions without any issues. Patient had no further questions or concerns at this time.
== END 2020-05-02 16:55 | disposition home or self-care (01) | DRG 158 ==
LOC: ED 02:03 → MS3 05:16
PROVIDERS: Family Medicine; Admitting Provider Hospitalist; Emergency Provider Emergency Medicine; PCP Internal Medicine; Visit Provider Internal Medicine
DX: K04.7 Periapical abscess without sinus (principal); L03.211 Cellulitis of face; K05.10 Chronic gingivitis, plaque induced; I10 Essential (primary) hypertension; E78.5 Hyperlipidemia, unspecified; E11.42 Type 2 diabetes mellitus with diabetic polyneuropathy; E11.65 Type 2 diabetes mellitus with hyperglycemia; F32.9 Major depressive disorder, single episode, unspecified; F41.9 Anxiety disorder, unspecified; G89.29 Other chronic pain; E11.51 Type 2 diabetes mellitus with diabetic peripheral angiopathy without gangrene; F17.210 Nicotine dependence, cigarettes, uncomplicated; Z89.511 Acquired absence of right leg below knee; Z93.3 Colostomy status; Z79.4 Long term (current) use of insulin; Z79.82 Long term (current) use of aspirin; Z79.02 Long term (current) use of antithrombotics/antiplatelets; Z79.899 Other long term (current) drug therapy; Z87.39 Personal history of other diseases of the musculoskeletal system and connective tissue
CPT/HCPCS: 70486; 70491; 80048; 82962; 83605; 85025; 87040; 99285; 99406; Q9967; A4216; J2405

== ENCOUNTER 2020-05-29 12:45 | Outpatient (RCR) | payer MEDICARE, MEDICAID, SELFPAY ==
[2020-04-30 05:54] VITALS: BMI 36.1
[2020-05-09 00:24] VITALS: BP 136/63; PULSE 97; RESP 18; TEMP 36.5; O2SAT 99
[2020-05-22 13:44] VITALS: BP 101/66; PULSE 92; RESP 18; TEMP 36; BMI 36.1
--- NOTE | 2020-05-22 16:15 | PCM.WC.PN ---
Type of Wound Date of Service: 05/22/20 Chief Complaint: Nohealing infected diabetic ulcer anterior aspect right BKA stump and nonhealing ulcer left ischial area. History of Wound: Surgery 12/07/19 - 1. Surgical preparation right BKA stump with incision and drainage and excisional debridement infected hematoma (19.25 cm2). 2. Partial ostectomy tibia for osteomyelitis. Wound care- EpiCord #3. Operative bone culture and tissue culture from 12/07/19 showed Staphylococcus aureus. She was treated with Doxycycline. Pathology was negative for osteomyelitis. Pathology from 06/26 was positive for osteomyelitis. Her HgA1c from 12/07/19 was 10.5. Prealbumin from 12/07/19 was 14.Another wound culture was obtained on 02/21/20. It showed Enterococcus faecalis. She was started on Augmentin and has finished them. She had new onset left ischial ulcer from a recent fall. Wound culture from 04/24/20 showed Staphylococcus aureus and Gram positive michael. She was treated with Doxycycline and has finished them. The left ischial ulcer has healed. She denies fever today and states her appetite is ok. Progress of Wound: Diabetic ulcer anterior aspect right BKA stump is improved and ulcer left ischial area is healed. - Physical Exam Vital Signs Temp Pulse Resp BP Pulse Ox 96.8 F L 92 18 101/66 99 05/22/20 13:44 05/22/20 13:44 05/22/20 13:44 05/22/20 13:44 05/09/20 00:24 Wound Measurements and Assessment WC - Nurse 1 - General Ulcer Measurement Start: 05/22/20 13:43 Freq: Status: Active Protocol: Activity Type Activity Date Activity User E-Sign Co-Sign Detail Recorded Client Recorded Date Recorded By Document 05/22/20 13:44 DL [id number] 05/22/20 13:53 DL 05/22/20 13:44 Wound Center Nurse 1 [Ulcer Assessment] #8- L GLUTEAL FOLD -Current Size (cm) - Length 0 -Current Size (cm) - Width 0 -Current Size (cm) - Depth 0 -Total Square Cm 0 -Photo Taken Yes -Exudate Amt None Present -Wound Margin Flat & Intact -Granulation Amt Large (67-100%) -Granulation Quality [place] -Necrosis Amt None Present (0 %) -Structure Exposed N/A -Texture (Love-wound Skin Appearance) Scarring -Moisture (Love-wound Skin Appearance No Abnormality ) -Color (Love-wound Skin Appearance) No Abnormality -Temperature (Love-wound Skin No Abnormality Appearance) (Pt Warm) -Tenderness on Palpation (Lvoe-wound No Skin Appearance) -Ulcer Cleansing Rinsed/ Irrigated with Saline -Foul Odor after Cleansing No 7-right BKA -Current Size (cm) - Length 0.7 -Current Size (cm) - Width 0.4 -Current Size (cm) - Depth 0.3 -Total Square Cm 0.28 -Photo Taken No -Exudate Amt Small -Exudate Type Yellow/Green -Wound Margin Distinct, Outline Attached -Granulation Amt Small (1-33%) -Granulation Quality [place] -Necrosis Amt Small (1-33%) -Necrotic Tissue Type Adherent Slough -Structure Exposed Bone -Texture (Love-wound Skin Appearance) Scarring -Moisture (Love-wound Skin Appearance No Abnormality ) -Color (Love-wound Skin Appearance) No Abnormality -Temperature (Love-wound Skin No Abnormality Appearance) (Pt Warm) -Tenderness on Palpation (Love-wound No Skin Appearance) -Ulcer Cleansing Rinsed/ Irrigated with Saline -Foul Odor after Cleansing No -Anesthetic Used 4% Lidocaine Solution WC - Nurse 2 - General Ulcer CM Notes Start: 05/22/20 13:43 Freq: Status: Active Protocol: Activity Type Activity Date Activity User E-Sign Co-Sign Detail Recorded Client Recorded Date Recorded By Document 05/22/20 14:23 SHAYNA [id number] 05/22/20 14:25 SHAYNA 05/22/20 14:23 Wound Center Nurse 2 [Procedure/Treatment] #8- L GLUTEAL FOLD -Correct Patient No -Correct Side, Site, Position No -Correct Procedure No -Procedure Performed No -Post Debridement (cm) - Length 0 -Post Debridement (cm) - Width 0 -Post Debridement (cm) - Depth 0 -Total Square (Post) (cm) 0 -Area of Debridement (cm) - Length 0 -Area of Debridement (cm) - Width 0 -Total Square (Area) (cm) 0 -Tunneling No -Undermining/Tunneling No -Circular Undermining No -Wound/Ulcer Outcome Healed- Epithelialized 7-right BKA -Time 14:24 -Correct Patient Yes -Correct Side, Site, Position Yes -Correct Procedure Yes -Procedure Performed Yes -Type of Procedure Debridement -Clinical Debridement Subcutaneous -Tissue Removed Subcutaneous -Post Debridement (cm) - Length 0.5 -Post Debridement (cm) - Width 0.3 -Post Debridement (cm) - Depth 0.4 -Total Square (Post) (cm) 0.15 -Area of Debridement (cm) - Length 0.5 -Area of Debridement (cm) - Width 0.3 -Total Square (Area) (cm) 0.15 -Tunneling No -Undermining/Tunneling No -Circular Undermining No -Wound/Ulcer Outcome Not Healed -Ulcer Cleansing Rinsed/ Irrigated with Saline -Foul Odor after Cleansing No -Bioengineered Tissue Yes -Type of Bioengineered Tissue Epicord -Expiration Date 12/07/24 -Product Lot Number [id number] -Percent Used 100 -Saline Lot Number [id number] -Bleeding Controlled with Pressure -Offloading No -Treatment Response Procedure Tolerated Well -Debridement - Subq, 1st 20sq cm No -Apply Skin Sub - 1st 25 sq cm - Legs 1 -Epicord (per sq cm) 6 [See Physician Procedure note for Specifics] Pain Scale: 0-10 Numeric [Pain] -Is Patient Pain Free? Yes - Nurse 3 - General Ulcer D/C NN Start: 05/22/20 13:43 Freq: Status: Active Protocol: Activity Type Activity Date Activity User E-Sign Co-Sign Detail Recorded Client Recorded Date Recorded By Document 05/22/20 14:37 [facility] [id number] 05/22/20 14:38 [facility] 05/22/20 14:37 Wound Care Nurse 3 [Wound Dressing] 7-right BKA -Primary Dressing Applied Other -Other Dressing epicord per dr hooper -Primary Dressing Covered/Secured Dry Gauze & with Roll Gauze, Secured with Tape [Compression Applied] Right -Compression Wrap Javier Wrap [Post Procedure Tolerated] -Treatment Response Procedure Tolerated Well Pain Scale: 0-10 Numeric [Pain] -Is Patient Pain Free? Yes - Visit Discharge [Visit Discharge Information] -Discharge Condition Stable -Ambulatory Status Ambulatory, Walker -Notes: knee walker Debridement Note Post-Debridement Measurements/Treatment - Nurse 2 - General Ulcer CM Notes Start: 05/22/20 13:43 Freq: Status: Active Protocol: Activity Type Activity Date Activity User E-Sign Co-Sign Detail Recorded Client Recorded Date Recorded By Document 05/22/20 14:23 [id number] 05/22/20 14:25 05/22/20 14:23 Wound Center Nurse 2 #8- L GLUTEAL FOLD -Correct Patient No -Correct Side, Site, Position No -Correct Procedure No -Procedure Performed No -Post Debridement (cm) - Length 0 -Post Debridement (cm) - Width 0 -Post Debridement (cm) - Depth 0 -Total Square (Post) (cm) 0 -Area of Debridement (cm) - Length 0 -Area of Debridement (cm) - Width 0 -Total Square (Area) (cm) 0 -Tunneling No -Undermining/Tunneling No -Circular Undermining No -Wound/Ulcer Outcome Healed- Epithelialized 7-right BKA -Time 14:24 -Correct Patient Yes -Correct Side, Site, Position Yes -Correct Procedure Yes -Procedure Performed Yes -Type of Procedure Debridement -Clinical Debridement Subcutaneous -Tissue Removed Subcutaneous -Post Debridement (cm) - Length 0.5 -Post Debridement (cm) - Width 0.3 -Post Debridement (cm) - Depth 0.4 -Total Square (Post) (cm) 0.15 -Area of Debridement (cm) - Length 0.5 -Area of Debridement (cm) - Width 0.3 -Total Square (Area) (cm) 0.15 -Tunneling No -Undermining/Tunneling No -Circular Undermining No -Wound/Ulcer Outcome Not Healed -Ulcer Cleansing Rinsed/ Irrigated with Saline -Foul Odor after Cleansing No -Bioengineered Tissue Yes -Type of Bioengineered Tissue Epicord #4 -Expiration Date 12/07/24 -Product Lot Number [id number] -Percent Used 100 -Saline Lot Number [id number] -Bleeding Controlled with Pressure -Offloading No -Treatment Response Procedure Tolerated Well -Debridement - Subq, 1st 20sq cm No -Apply Skin Sub - 1st 25 sq cm - Legs 1 -Epicord (per sq cm) 6 Pain Scale: 0-10 Numeric Is Patient Pain Free? Yes WC - Nurse 3 - General Ulcer D/C NN Start: 05/22/20 13:43 Freq: Status: Active Protocol: Activity Type Activity Date Activity User E-Sign Co-Sign Detail Recorded Client Recorded Date Recorded By Document 05/22/20 14:37 [facility] [id number] 05/22/20 14:38 [facility] 05/22/20 14:37 Wound Care Nurse 3 7-right BKA -Primary Dressing Applied Other -Other Dressing epicord per dr hooper -Primary Dressing Covered/Secured with Dry Gauze & Roll Gauze, Secured with Tape Right -Compression Wrap Javier Wrap Treatment Response Procedure Tolerated Well Pain Scale: 0-10 Numeric Is Patient Pain Free? Yes WC - Visit Discharge Discharge Condition Stable Ambulatory Status Ambulatory, Walker Notes: knee walker Wound debrided: #7 Right BKA stump, anterior. Laterality: Right Wound Grade/Stage: IV. Type of Debridement: Excisional debridement Anesthesia Used: 4% Lidocaine Solution Depth: Down to and including healthy tissue, in the subcutaneous layer Percentage of wound debrided: 100 Instrument Used: 3mm curette Tissue Removed: subcutaneous tissue. Severity: Fat Layer Exposed Amount of bleeding with debridement: Mild Bleeding Controlled with: Pressure Patient tolerated procedure well, - - I placed Epicord #4 today. Expiration - 12/07/24. Lot Number - [id number]. % used - 100%. Saline Lot Number -[id number]. - Additional Wound Wound debrided: #8 Left ischial area. Laterality: Left Wound Grade/Stage: 2. Patient tolerated procedure: - - No debridement was done today. The ulcer has healed. Assessment/Plan Assessment: 1. Nonhealing ulcer right BKA stump, anterior. 2. Diabetes. 3. PVD. 4. History of osteomyelitis. 5. Ulcer left ischial area, healed. 6. Smoker. Plan: Epicord #4 was placed today covered by a wound veil and a compression javier wrap. The ulcer on left ischial area has healed. A wound culture was obtained 04/24/20 and it showed Staphylococcus aureus and Gram positive michael. She was placed on Doxycycline and has finished them. Operative bone culture and tissue culture from 12/07/19 showed Staphylococcus aureus. She was placed on Doxycycline and has finished them. Her HgA1c is 10.5 from 12/07/19 and Prealbumin was 14. Encouraged increase in protein intake to help with wound healing. Pain management is now managing her pain medications. Encouraged the patient to stop smoking as it may have deleterious effects on wound healing. Followup 1 week. [id number]: [id number] Skin sub graft trnk/arm/leg - ICD-10 - T87.89, L89.322, E11.9, I73.9, Z87.39, F17.200
[2020-05-29 12:55] VITALS: BP 121/64; PULSE 96; RESP 16; TEMP 36.1; BMI 36.1
--- NOTE | 2020-05-29 12:59 | WC ---
epicord left in place per cm instruction
--- NOTE | 2020-05-29 15:39 | PN.PCM_ITS ---
(1) Diabetic ulcer of lower extremity Status: Inactive Current Visit: Yes Code(s): E11.622 - Type 2 diabetes mellitus with other skin ulcer; L97.909 - Non-pressure chronic ulcer of unspecified part of unspecified lower leg with unspecified severity (2) Hx of right BKA Status: Chronic Current Visit: Yes Code(s): Z89.511 - Acquired absence of right leg below knee Comment: 1. Surgical preparation anterior aspect right BKA stump with excisional debridement nonhealing painful ulcer. 2. Partial ostectomy tibia for osteomyelitis. 3. 3 cm complex secondary wound closure - 06/11/19 1. 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 2. Partial ostectomy tibia for osteomyelitis. 3. Complex secondary wound closure revision reconstruction - 12/28/18 (3) PVD (peripheral vascular disease) Status: Chronic Current Visit: Yes Code(s): I73.9 - Peripheral vascular disease, unspecified (4) DM2 (diabetes mellitus, type 2) Status: Chronic Current Visit: No Qualifiers: Diabetes mellitus alf insulin use: with intermediate designer use Diabetes mellitus complication status: with hyperglycemia Qualified Code(s): E11.65 - Type 2 diabetes mellitus with hyperglycemia; Z79.4 - senior living (current) use of insulin Code(s): E11.9 - Type 2 diabetes mellitus without complications Type of Wound Date of Service: 05/29/20 Chief Complaint: Nohealing infected diabetic ulcer anterior aspect right BKA stump and nonhealing ulcer left ischial area. History of Wound: Surgery 12/07/19 - 1. Surgical preparation right BKA stump w ith incision and drainage and excisional debridement infected hematoma (19.25 cm2). 2. Partial ostectomy tibia for osteomyelitis. Wound care- EpiCord #4 removed today and will be replaced with EpiFix. Operative bone culture and tissue culture from 12/07/19 showed Staphylococcus aureus. She was treated with Doxycycline. Pathology was negative for osteomyelitis. Pathology from 06/26 was positive for osteomyelitis. Her HgA1c from 12/07/19 was 10.5. Prealbumin from 12/07/19 was 14.Another wound culture was obtained on 02/21/20. It showed Enterococcus faecalis. She was started on Augmentin and has finished them. She had new onset left ischial ulcer from a recent fall. Wound culture from 04/24/20 showed Staphylococcus aureus and Gram positive michael. She was treated with Doxycycline and has finished them. The left ischial ulcer has healed. She denies fever today and states her appetite is ok. Progress of Wound: Diabetic ulcer anterior aspect right BKA stump is improved. The patient denies any fever, chills, nausea, vomiting, or diarrhea. Denies any signs of infection, including increasing pain, redness, swelling, or purulent/malodorous drainage from affected area. - Physical Exam Vital Signs Temp Pulse Resp BP Pulse Ox 96.9 F L 96 16 121/64 H 99 05/29/20 12:55 05/29/20 12:55 05/29/20 12:55 05/29/20 12:55 05/09/20 00:24 General: Alert, Oriented x3, Cooperative, No apparent distress HEENT: Atraumatic, Normocephalic Oral: Moist Mucosa Lungs: Normal air movement Cardiovascular: Regular rate Extremities: No clubbing, No cyanosis, Capillary Refill Less than 3 Seconds Skin: Ulcer/ Wound - Ulcer of right lower extremity (at BKA stump) with subcutaneous layer exposed. There is no simona-ulcer erythema, swelling, or warmth. There is no purulent or malodorous drainage. Wound Measurements and Assessment WC - Nurse 1 - General Ulcer Measurement Start: 05/22/20 13:43 Freq: Status: Active Protocol: Activity Type Activity Date Activity User E-Sign Co-Sign Detail Recorded Client Recorded Date Recorded By Document 05/29/20 12:55 [facility] [id number] 05/29/20 12:59 [facility] 05/29/20 12:55 Wound Center Nurse 1 [Ulcer Assessment] 7-right BKA -Combined with other wound No -Current Size (cm) - Length 0.1 -Current Size (cm) - Width 0.1 -Current Size (cm) - Depth 0.1 -Total Square Cm 0.01 -Photo Taken No WC - Nurse 2 - General Ulcer CM Notes Start: 05/22/20 13:43 Freq: Status: Active Protocol: Activity Type Activity Date Activity User E-Sign Co-Sign Detail Recorded Client Recorded Date Recorded By Document 05/29/20 13:47 [id number] 05/29/20 13:49 05/29/20 13:47 Wound Center Nurse 2 [Procedure/Treatment] -Time 13:47 -Correct Patient Yes -Correct Side, Site, Position Yes -Correct Procedure Yes -Procedure Performed Yes -Type of Procedure Debridement -Clinical Debridement Subcutaneous -Tissue Removed Subcutaneous -Post Debridement (cm) - Length 0.5 -Post Debridement (cm) - Width 0.3 -Post Debridement (cm) - Depth 0.3 -Total Square (Post) (cm) 0.15 -Area of Debridement (cm) - Length 0.5 -Area of Debridement (cm) - Width 0.3 -Total Square (Area) (cm) 0.15 -Tunneling No -Undermining/Tunneling No -Circular Undermining No -Wound/Ulcer Outcome Not Healed -Ulcer Cleansing Rinsed/ Irrigated with Saline -Foul Odor after Cleansing No -Bioengineered Tissue Yes -Type of Bioengineered Tissue Epifix 18mm Disc -Expiration Date 02/06/25 -Product Lot Number [id number] -Percent Used 100 -Saline Lot Number [id number] -Bleeding Controlled with Pressure -Offloading Yes -Type of Offloading Knee Walker -Treatment Response Procedure Tolerated Well -Debridement - Subq, 1st 20sq cm No -Apply Skin Sub - 1st 25 sq cm - Legs 1 -Epifix 18mm Disc 3 Query Text:18mm = 3 [See Physician Procedure note for Specifics] Pain Scale: 0-10 Numeric [Pain] -Is Patient Pain Free? Yes - Nurse 3 - General Ulcer D/C NN Start: 05/22/20 13:43 Freq: Status: Active Protocol: Activity Type Activity Date Activity User E-Sign Co-Sign Detail Recorded Client Recorded Date Recorded By Document 05/29/20 13:54 DL [id number] 05/29/20 13:55 DL 05/29/20 13:54 Wound Care Nurse 3 [Wound Dressing] 7-right BKA -Foul Odor after Cleansing No -Other Covering Epicord/adaptic /steri strips [Compression Applied] Right -Compression Wrap Javier Wrap [Post Procedure Tolerated] -Treatment Response Procedure Tolerated Well Pain Scale: 0-10 Numeric [Pain] -Is Patient Pain Free? Yes - Visit Discharge [Visit Discharge Information] -Discharge Condition Stable -Ambulatory Status Ambulatory -Transportation Private Auto Musculoskeletal: Tenderness - On palpation/manipulation of ulcer Psych/Mental Status: Normal Affect, Appropriate Debridement Note Post-Debridement Measurements/Treatment WC - Nurse 2 - General Ulcer CM Notes Start: 05/22/20 13:43 Freq: Status: Active Protocol: Activity Type Activity Date Activity User E-Sign Co-Sign Detail Recorded Client Recorded Date Recorded By Document 05/22/20 14:23 [id number] 05/22/20 14:25 Document 05/29/20 13:47 [id number] 05/29/20 13:49 05/22/20 05/29/20 14:23 13:47 Wound Center Nurse 2 #8- L GLUTEAL FOLD -Correct Patient No -Correct Side, Site, Position No -Correct Procedure No -Procedure Performed No -Post Debridement (cm) - Length 0 -Post Debridement (cm) - Width 0 -Post Debridement (cm) - Depth 0 -Total Square (Post) (cm) 0 -Area of Debridement (cm) - Length 0 -Area of Debridement (cm) - Width 0 -Total Square (Area) (cm) 0 -Tunneling No -Undermining/Tunneling No -Circular Undermining No -Wound/Ulcer Outcome Healed- Epithelialized 7-right BKA -Time 14:24 13:47 -Correct Patient Yes Yes -Correct Side, Site, Position Yes Yes -Correct Procedure Yes Yes -Procedure Performed Yes Yes -Type of Procedure Debridement Debridement -Clinical Debridement Subcutaneous Subcutaneous -Tissue Removed Subcutaneous Subcutaneous -Post Debridement (cm) - Length 0.5 0.5 -Post Debridement (cm) - Width 0.3 0.3 -Post Debridement (cm) - Depth 0.4 0.3 -Total Square (Post) (cm) 0.15 0.15 -Area of Debridement (cm) - Length 0.5 0.5 -Area of Debridement (cm) - Width 0.3 0.3 -Total Square (Area) (cm) 0.15 0.15 -Tunneling No No -Undermining/Tunneling No No -Circular Undermining No No -Wound/Ulcer Outcome Not Healed Not Healed -Ulcer Cleansing Rinsed/ Rinsed/ Irrigated with Irrigated with Saline Saline -Foul Odor after Cleansing No No -Bioengineered Tissue Yes Yes -Type of Bioengineered Tissue Epicord Epifix 18mm Disc -Expiration Date 12/07/24 02/06/25 -Product Lot Number [id number] -Percent Used 100 100 -Saline Lot Number [id number] -Bleeding Controlled with Pressure Pressure -Offloading No Yes -Type of Offloading Knee Walker -Treatment Response Procedure Procedure Tolerated Well Tolerated Well -Debridement - Subq, 1st 20sq cm No No -Apply Skin Sub - 1st 25 sq cm - Legs 1 1 -Epicord (per sq cm) 6 -Epifix 18mm Disc 3 Query Text:18mm = 3 Pain Scale: 0-10 Numeric Is Patient Pain Free? Yes Yes - Nurse 3 - General Ulcer D/C NN Start: 05/22/20 13:43 Freq: Status: Active Protocol: Activity Type Activity Date Activity User E-Sign Co-Sign Detail Recorded Client Recorded Date Recorded By Document 05/22/20 14:37 [facility] [id number] 05/22/20 14:38 [facility] Document 05/29/20 13:54 DL [id number] 05/29/20 13:55 DL 05/22/20 05/29/20 14:37 13:54 Wound Care Nurse 3 7-right BKA -Foul Odor after Cleansing No -Primary Dressing Applied Other -Other Dressing epicord per dr hooper -Primary Dressing Covered/Secured with Dry Gauze & Roll Gauze, Secured with Tape -Other Covering Epicord/adaptic /steri strips Right -Compression Wrap Javier Wrap Javier Wrap Treatment Response Procedure Procedure Tolerated Well Tolerated Well Pain Scale: 0-10 Numeric Is Patient Pain Free? Yes Yes - Visit Discharge Discharge Condition Stable Stable Ambulatory Status Ambulatory, Ambulatory Walker Transportation Private Auto Notes: knee walker Wound debrided: Anterior BKA stump ulcer Laterality: Right Type of Debridement: Excisional debridement Anesthesia Used: 4% Lidocaine Solution Depth: in the subcutaneous layer Percentage of wound debrided: 100 Instrument Used: 3mm curette Tissue Removed: Slough and devitalized tissue Severity: Fat Layer Exposed Amount of bleeding with debridement: Mild Bleeding Controlled with: Pressure Patient tolerated procedure well Assessment/Plan Active Problems (Last Reviewed 05/24/20 @ 16:42 by Priscila Lopez) Hx of right BKA (Chronic) 1. Surgical preparation anterior aspect right BKA stump with excisional debridement nonhealing painful ulcer. 2. Partial ostectomy tibia for osteomyelitis. 3. 3 cm complex secondary wound closure - 06/11/19 1. 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 2. Partial ostectomy tibia for osteomyelitis. 3. Complex secondary wound closure revision reconstruction - 12/28/18 PVD (peripheral vascular disease) (Chronic) Assessment: 1. Nonhealing ulcer right BKA stump, anterior. 2. Diabetes. 3. PVD. 4. History of osteomyelitis. 5. Ulcer left ischial area, healed. 6. Smoker. Plan: Epi-fix (advanced skin sub #5) was placed today. 100% of the product was used. Collagen hydrogel applied and covered with Adaptic touch and secured with Steri-Strips. The ulcer on left ischial area has healed. A wound culture was obtained 04/24/20 and it showed Staphylococcus aureus and Gram positive michael. She was placed on Doxycycline and has finished them. Operative bone culture and tissue culture from 12/07/19 showed Staphylococcus aureus. She was placed on Doxycycline and has finished them. Her HgA1c is 10.5 from 12/07/19 and Prealbumin was 14. Encouraged increase in protein intake to help with wound healing. Pain management is now managing her pain medications. Encouraged the patient to stop smoking as it may have deleterious effects on wound healing. Follow-up with a nurse visit in 1 week and a provider visit in 2 weeks. Return sooner if new or concerning symptoms arise. [id number]: [id number] Skin sub graft trnk/arm/leg
== END 2020-06-07 23:59 ==
LOC: WC 12:45
PROVIDERS: Family Provider Internal Medicine; PCP Internal Medicine; Visit Provider Surgery
CPT/HCPCS: 15271; Q4186; Q4187

== ENCOUNTER 2020-07-03 13:15 | Outpatient (RCR) | payer MEDICARE, MEDICAID, SELFPAY ==
[2020-06-08 00:26] VITALS: BP 121/64; PULSE 96; RESP 16; TEMP 36.1; O2SAT 99; BMI 31.9
[2020-06-12 13:36] VITALS: BP 129/72; PULSE 89; RESP 18; TEMP 36.3; BMI 31.9
--- NOTE | 2020-06-14 09:53 | PN.PCM_ITS ---
(1) Diabetic ulcer of lower extremity Status: Chronic Current Visit: Yes Code(s): E11.622 - Type 2 diabetes mellitus with other skin ulcer; L97.909 - Non-pressure chronic ulcer of unspecified part of unspecified lower leg with unspecified severity (2) Hx of right BKA Status: Chronic Current Visit: Yes Code(s): Z89.511 - Acquired absence of right leg below knee Comment: 1. Surgical preparation anterior aspect right BKA stump with excisional debridement nonhealing painful ulcer. 2. Partial ostectomy tibia for osteomyelitis. 3. 3 cm complex secondary wound closure - 06/11/19 1. 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 2. Partial ostectomy tibia for osteomyelitis. 3. Complex secondary wound closure revision reconstruction - 12/28/18 (3) PVD (peripheral vascular disease) Status: Chronic Current Visit: Yes Code(s): I73.9 - Peripheral vascular disease, unspecified (4) DM2 (diabetes mellitus, type 2) Status: Chronic Current Visit: No Qualifiers: Code(s): E11.9 - Type 2 diabetes mellitus without complications Type of Wound Date of Service: 06/12/20 Chief Complaint: Nohealing infected diabetic ulcer anterior aspect right BKA stump and nonhealing ulcer left ischial area. History of Wound: Surgery 12/07/19 - 1. Surgical preparation right BKA stump with incision and drainage and excisional debridement infected hematoma (19.25 cm2). 2. Partial ostectomy tibia for osteomyelitis. Wound care- EpiCord #4 removed today and will be replaced with EpiFix. Operative bone culture and tissue culture from 12/07/19 showed Staphylococcus aureus. She was treated with Doxycycline. Pathology was negative for osteomyelitis. Pathology from 06/26 was positive for osteomyelitis. Her HgA1c from 12/07/19 was 10.5. Prealbumin from 12/07/19 was 14.Another wound culture was obtained on 02/21/20. It showed Enterococcus faecalis. She was started on Augmentin and has finished them. She had new onset left ischial ulcer from a recent fall. Wound culture from 04/24/20 showed Staphylococcus aureus and Gram positive michael. She was treated with Doxycycline and has finished them. The left ischial ulcer has healed. She denies fever today and states her appetite is ok. Progress of Wound: Diabetic ulcer anterior aspect right BKA stump is stable in appearance but slightly larger in size. The patient denies any fever, chills, nausea, vomiting, or diarrhea. Denies any signs of infection, including increasing pain, redness, swelling, or purulent/malodorous drainage from affected area. - Physical Exam Vital Signs Temp Pulse Resp BP Pulse Ox 97.3 F L 89 18 129/72 H 99 06/12/20 13:36 06/12/20 13:36 06/12/20 13:36 06/12/20 13:36 06/08/20 00:26 General: Alert, Cooperative, No apparent distress HEENT: Atraumatic, Normocephalic Oral: Moist Mucosa Neck: Supple, Trachea Midline Lungs: Normal air movement Abdomen: Non-Distended Extremities: Capillary Refill Less than 3 Seconds Skin: Ulcer/ Wound - Ulcer of right lower extremity (at BKA stump) with subcutaneous layer exposed. There is no simona-ulcer erythema, swelling, or warmth. There is no purulent or malodorous drainage. Wound Measurements and Assessment WC - Nurse 1 - General Ulcer Measurement Start: 06/12/20 13:36 Freq: Status: Active Protocol: Activity Type Activity Date Activity User E-Sign Co-Sign Detail Recorded Client Recorded Date Recorded By Document 06/12/20 13:36 DL [id number] 06/12/20 13:40 DL 06/12/20 13:36 Wound Center Nurse 1 [Ulcer Assessment] 7-right BKA -Current Size (cm) - Length 0.8 -Current Size (cm) - Width 0.5 -Current Size (cm) - Depth 0.1 -Total Square Cm 0.40 -Photo Taken No -Exudate Amt Small -Exudate Type Yellow/Green -Wound Margin Thickened -Granulation Amt None Present (0 %) -Necrosis Amt Small (1-33%) -Necrotic Tissue Type Eschar -Structure Exposed N/A -Texture (Simona-wound Skin Appearance) Scarring -Moisture (Simona-wound Skin Appearance No Abnormality ) -Color (Simona-wound Skin Appearance) No Abnormality -Temperature (Simona-wound Skin No Abnormality Appearance) (Pt Warm) -Tenderness on Palpation (Simona-wound Yes Skin Appearance) -Ulcer Cleansing Wound Cleanser -Foul Odor after Cleansing No -Anesthetic Used 4% Lidocaine Solution WC - Nurse 2 - General Ulcer CM Notes Start: 06/12/20 13:36 Freq: Status: Active Protocol: Activity Type Activity Date Activity User E-Sign Co-Sign Detail Recorded Client Recorded Date Recorded By Document 06/12/20 13:57 JF [id number] 06/12/20 13:59 JF 06/12/20 13:57 Wound Center Nurse 2 [Procedure/Treatment] -Time 13:57 -Correct Patient Yes -Correct Side, Site, Position Yes -Correct Procedure Yes -Procedure Performed Yes -Type of Procedure Debridement -Clinical Debridement Subcutaneous -Tissue Removed Subcutaneous -Post Debridement (cm) - Length 0.7 -Post Debridement (cm) - Width 0.3 -Post Debridement (cm) - Depth 0.3 -Total Square (Post) (cm) 0.21 -Area of Debridement (cm) - Length 0.7 -Area of Debridement (cm) - Width 0.3 -Total Square (Area) (cm) 0.21 -Tunneling No -Undermining/Tunneling No -Circular Undermining No -Wound/Ulcer Outcome Not Healed -Ulcer Cleansing Rinsed/ Irrigated with Saline -Foul Odor after Cleansing No -Bioengineered Tissue Yes -Type of Bioengineered Tissue Epifix 18mm Disc -Expiration Date 02/06/25 -Product Lot Number [id number] -Percent Used 100 -Saline Lot Number [id number] -Bleeding Controlled with Pressure -Offloading Yes -Type of Offloading Knee Walker -Treatment Response Procedure Tolerated Well -Debridement - Subq, 1st 20sq cm No -Apply Skin Sub - 1st 25 sq cm - Legs 1 -Epifix 18mm Disc 3 Query Text:18mm = 3 [See Physician Procedure note for Specifics] Pain Scale: 0-10 Numeric [Pain] -Is Patient Pain Free? Yes WC - Nurse 3 - General Ulcer D/C NN Start: 06/12/20 13:36 Freq: Status: Active Protocol: Activity Type Activity Date Activity User E-Sign Co-Sign Detail Recorded Client Recorded Date Recorded By Document 06/12/20 14:07 MS [id number] 06/12/20 14:10 MS 06/12/20 14:07 Wound Care Nurse 3 [Wound Dressing] 7-right BKA -Foul Odor after Cleansing No -Other Dressing adaptic, steristrips -Other Covering epifix [Post Procedure Tolerated] -Treatment Response Procedure Tolerated Well WC - Visit Discharge [Visit Discharge Information] -Discharge Condition Stable -Ambulatory Status Walker -Transportation Private Auto Musculoskeletal: Tenderness - On palpation/manipulation of ulcer Psych/Mental Status: Normal Affect, Appropriate Debridement Note Post-Debridement Measurements/Treatment - Nurse 2 - General Ulcer CM Notes Start: 06/12/20 13:36 Freq: Status: Active Protocol: Activity Type Activity Date Activity User E-Sign Co-Sign Detail Recorded Client Recorded Date Recorded By Document 06/12/20 13:57 [id number] 06/12/20 13:59 JF 06/12/20 13:57 Wound Center Nurse 2 7-right BKA -Time 13:57 -Correct Patient Yes -Correct Side, Site, Position Yes -Correct Procedure Yes -Procedure Performed Yes -Type of Procedure Debridement -Clinical Debridement Subcutaneous -Tissue Removed Subcutaneous -Post Debridement (cm) - Length 0.7 -Post Debridement (cm) - Width 0.3 -Post Debridement (cm) - Depth 0.3 -Total Square (Post) (cm) 0.21 -Area of Debridement (cm) - Length 0.7 -Area of Debridement (cm) - Width 0.3 -Total Square (Area) (cm) 0.21 -Tunneling No -Undermining/Tunneling No -Circular Undermining No -Wound/Ulcer Outcome Not Healed -Ulcer Cleansing Rinsed/ Irrigated with Saline -Foul Odor after Cleansing No -Bioengineered Tissue Yes -Type of Bioengineered Tissue Epifix 18mm Disc -Expiration Date 02/06/25 -Product Lot Number [id number] -Percent Used 100 -Saline Lot Number [id number] -Bleeding Controlled with Pressure -Offloading Yes -Type of Offloading Knee Walker -Treatment Response Procedure Tolerated Well -Debridement - Subq, 1st 20sq cm No -Apply Skin Sub - 1st 25 sq cm - Legs 1 -Epifix 18mm Disc 3 Query Text:18mm = 3 Pain Scale: 0-10 Numeric Is Patient Pain Free? Yes - Nurse 3 - General Ulcer D/C NN Start: 06/12/20 13:36 Freq: Status: Active Protocol: Activity Type Activity Date Activity User E-Sign Co-Sign Detail Recorded Client Recorded Date Recorded By Document 06/12/20 14:07 MS [id number] 06/12/20 14:10 MS 06/12/20 14:07 Wound Care Nurse 3 7-right BKA -Foul Odor after Cleansing No -Other Dressing adaptic, steristrips -Other Covering epifix Treatment Response Procedure Tolerated Well WC - Visit Discharge Discharge Condition Stable Ambulatory Status Walker Transportation Private Auto Wound debrided: Anterior BKA stump ulcer Laterality: Right Type of Debridement: Excisional debridement Anesthesia Used: 5% Lidocaine Gel Depth: Down to and including healthy tissue, in the subcutaneous layer Percentage of wound debrided: 100 Instrument Used: 3mm curette Tissue Removed: Slough and vitalized tissue Severity: Fat Layer Exposed Amount of bleeding with debridement: Mild Bleeding Controlled with: Pressure Patient tolerated procedure well Assessment/Plan Active Problems (Last Reviewed 05/24/20 @ 16:42 by Priscila Lopez) Diabetic ulcer of lower extremity (Chronic) Hx of right BKA (Chronic) 1. Surgical preparation anterior aspect right BKA stump with excisional debridement nonhealing painful ulcer. 2. Partial ostectomy tibia for osteomyelitis. 3. 3 cm complex secondary wound closure - 06/11/19 1. 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 2. Partial ostectomy tibia for osteomyelitis. 3. Complex secondary wound closure revision reconstruction - 12/28/18 PVD (peripheral vascular disease) (Chronic) Assessment: 1. Nonhealing ulcer right BKA stump, anterior. 2. Diabetes. 3. PVD. 4. History of osteomyelitis. 5. Ulcer left ischial area, healed. 6. Smoker. Plan: Epi-fix (advanced skin sub #6) was placed today. 100% of the product was used. Collagen hydrogel applied and covered with Adaptic touch and secured with Steri-Strips. The ulcer on left ischial area has healed. A wound culture was obtained 04/24/20 and it showed Staphylococcus aureus and Gram positive michael. She was placed on Doxycycline and has finished them. Operative bone culture and tissue culture from 12/07/19 showed Staphylococcus aureus. She was placed on Doxycycline and has finished them. Her HgA1c is 10.5 from 12/07/19 and Prealbumin was 14. Encouraged increase in protein intake to help with wound healing. Pain management is now managing her pain medications. Encouraged the patient to stop smoking as it may have deleterious effects on wound healing. I am concerned the Epifix graft became too dry when left on for 2 weeks. I will have her return in 1 week for removal of epi-fix and reassessment. Follow-up sooner should new or concerning symptoms arise. Note: [employer] speech recognition electric appliance installer software was used to create portions of this document. Sound-alike and misspelled words, as well as other electric appliance installer errors may be contained in the documentation. [id number]: [id number] Skin sub graft trnk/arm/leg
[2020-06-26 11:28] VITALS: BP 126/60; PULSE 90; RESP 18; TEMP 36; BMI 31.9
[2020-06-26 12:02] VITALS: BP 119/76; PULSE 96
--- NOTE | 2020-06-26 12:15 | PN.PCM_ITS ---
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 History of Wound: Surgery 12/07/19 - 1. Surgical preparation right BKA stump with incision and drainage and excisional debridement infected hematoma (19.25 cm2). 2. Partial ostectomy tibia for osteomyelitis. Wound care- Finished Epicord and Epifix. Operative bone culture and tissue culture from 12/07/19 showed Staphylococcus aureus. She was treated with Doxycycline. Pathology was negative for osteomyelitis. Pathology from 06/26 was positive for osteomyelitis. Her HgA1c from 12/07/19 was 10.5. Prealbumin from 12/07/19 was 14. Another wound culture was obtained on 02/21/20. It showed Enterococcus faecalis. She was started on Augmentin and has finished them. She denies fever today and states her appetite is ok. Progress of Wound: Diabetic ulcer anterior aspect right BKA stump is improved. - Physical Exam Vital Signs Temp Pulse Resp BP Pulse Ox 96.8 F L 96 18 119/76 99 06/26/20 11:28 06/26/20 12:02 06/26/20 11:28 06/26/20 12:02 06/08/20 00:26 Wound Measurements and Assessment WC - Nurse 1 - General Ulcer Measurement Start: 06/12/20 13:36 Freq: Status: Active Protocol: Activity Type Activity Date Activity User E-Sign Co-Sign Detail Recorded Client Recorded Date Recorded By Document 06/26/20 11:28 [facility] [id number] 06/26/20 11:33 BM 06/26/20 11:28 Wound Center Nurse 1 [Ulcer Assessment] 7-right BKA -Combined with other wound No -Current Size (cm) - Length 0.1 -Current Size (cm) - Width 0.1 -Current Size (cm) - Depth 0.1 -Total Square Cm 0.01 -Photo Taken No -Epithelialization Medium 34-66% -Tunneling No -Undermining/Tunneling No -Circular Undermining No -Exudate Amt Small -Exudate Type Serous -Wound Margin Distinct, Outline Attached -Granulation Amt Large (67-100%) -Granulation Quality [place] -Slough/Fibrin No -Necrosis Amt None Present (0 %) -Texture (Love-wound Skin Appearance) Assessed, Scarring -Moisture (Love-wound Skin Appearance Assessed,Dry/ ) Scaly -Color (Love-wound Skin Appearance) Assessed -Temperature (Love-wound Skin No Abnormality Appearance) (Pt Warm) -Tenderness on Palpation (Love-wound No Skin Appearance) -Ulcer Cleansing Rinsed/ Irrigated with Saline -Foul Odor after Cleansing No -Anesthetic Used 5% Lidocaine Gel SOL - Nurse 2 - General Ulcer CM Notes Start: 06/12/20 13:36 Freq: Status: Active Protocol: Activity Type Activity Date Activity User E-Sign Co-Sign Detail Recorded Client Recorded Date Recorded By Document 06/26/20 11:52 [id number] 06/26/20 11:55 06/26/20 11:52 Wound Center Nurse 2 [Procedure/Treatment] -Time 11:54 -Correct Patient Yes -Correct Side, Site, Position Yes -Correct Procedure Yes -Procedure Performed Yes -Type of Procedure Debridement -Clinical Debridement Subcutaneous -Tissue Removed Subcutaneous -Post Debridement (cm) - Length 0.2 -Post Debridement (cm) - Width 0.2 -Post Debridement (cm) - Depth 0.3 -Total Square (Post) (cm) 0.04 -Area of Debridement (cm) - Length 0.2 -Area of Debridement (cm) - Width 0.2 -Total Square (Area) (cm) 0.04 -Tunneling No -Undermining/Tunneling No -Circular Undermining No -Wound/Ulcer Outcome Not Healed -Ulcer Cleansing Rinsed/ Irrigated with Saline -Foul Odor after Cleansing No -Bioengineered Tissue No -Bleeding Controlled with Pressure -Offloading Yes -Type of Offloading Knee Walker -Treatment Response Procedure Tolerated Well -Debridement - Subq, 1st 20sq cm Yes [See Physician Procedure note for Specifics] Pain Scale: 0-10 Numeric [Pain] -Is Patient Pain Free? Yes SOL - Nurse 3 - General Ulcer D/C NN Start: 06/12/20 13:36 Freq: Status: Active Protocol: Activity Type Activity Date Activity User E-Sign Co-Sign Detail Recorded Client Recorded Date Recorded By Document 06/26/20 12:02 MS [id number] 06/26/20 12:07 MS 06/26/20 12:02 Wound Care Nurse 3 [Wound Dressing] 7-right BKA -Ulcer Cleansing Rinsed/ Irrigated with Saline -Foul Odor after Cleansing No -Other Dressing hydrogel -Primary Dressing Covered/Secured Dry Gauze, with Secured with Tape [Compression Applied] Right -Compression Wrap Javier Wrap -Stockings No Vital Signs [Pulse] -Pulse Rate (60-100) 96 -Pulse Location Monitor [Blood Pressure] -Blood Pressure (90/60-120/80) 119/76 -Blood Pressure Mean (mm Hg) 90 -Source Monitor Pain Scale: 0-10 Numeric [Pain] -Is Patient Pain Free? Yes - Visit Discharge [Visit Discharge Information] -Discharge Condition Stable -Ambulatory Status Ambulatory -Transportation Private Auto Debridement Note Post-Debridement Measurements/Treatment - Nurse 2 - General Ulcer CM Notes Start: 06/12/20 13:36 Freq: Status: Active Protocol: Activity Type Activity Date Activity User E-Sign Co-Sign Detail Recorded Client Recorded Date Recorded By Document 06/12/20 13:57 [id number] 06/12/20 13:59 Document 06/26/20 11:52 [id number] 06/26/20 11:55 06/12/20 06/26/20 13:57 11:52 Wound Center Nurse 2 7-right BKA -Time 13:57 11:54 -Correct Patient Yes Yes -Correct Side, Site, Position Yes Yes -Correct Procedure Yes Yes -Procedure Performed Yes Yes -Type of Procedure Debridement Debridement -Clinical Debridement Subcutaneous Subcutaneous -Tissue Removed Subcutaneous Subcutaneous -Post Debridement (cm) - Length 0.7 0.2 -Post Debridement (cm) - Width 0.3 0.2 -Post Debridement (cm) - Depth 0.3 0.3 -Total Square (Post) (cm) 0.21 0.04 -Area of Debridement (cm) - Length 0.7 0.2 -Area of Debridement (cm) - Width 0.3 0.2 -Total Square (Area) (cm) 0.21 0.04 -Tunneling No No -Undermining/Tunneling No No -Circular Undermining No No -Wound/Ulcer Outcome Not Healed Not Healed -Ulcer Cleansing Rinsed/ Rinsed/ Irrigated with Irrigated with Saline Saline -Foul Odor after Cleansing No No -Bioengineered Tissue Yes No -Type of Bioengineered Tissue Epifix 18mm Disc -Expiration Date 02/06/25 -Product Lot Number [id number] -Percent Used 100 -Saline Lot Number [id number] -Bleeding Controlled with Pressure Pressure -Offloading Yes Yes -Type of Offloading Knee Walker Knee Walker -Treatment Response Procedure Procedure Tolerated Well Tolerated Well -Debridement - Subq, 1st 20sq cm No Yes -Apply Skin Sub - 1st 25 sq cm - Legs 1 -Epifix 18mm Disc 3 Pain Scale: 0-10 Numeric Is Patient Pain Free? Yes Yes - Nurse 3 - General Ulcer D/C NN Start: 06/12/20 13:36 Freq: Status: Active Protocol: Activity Type Activity Date Activity User E-Sign Co-Sign Detail Recorded Client Recorded Date Recorded By Document 06/12/20 14:07 MS [id number] 06/12/20 14:10 MS Document 06/26/20 12:02 MS [id number] 06/26/20 12:07 MS 06/12/20 06/26/20 14:07 12:02 Wound Care Nurse 3 7-right BKA -Ulcer Cleansing Rinsed/ Irrigated with Saline -Foul Odor after Cleansing No No -Other Dressing adaptic, hydrogel steristrips -Primary Dressing Covered/Secured with Dry Gauze, Secured with Tape -Other Covering epifix Right -Compression Wrap Javier Wrap -Stockings No Treatment Response Procedure Tolerated Well Vital Signs Pulse Rate (60-100) 96 Pulse Location Monitor Blood Pressure (90/60-120/80) 119/76 Blood Pressure Mean (mm Hg) 90 Source Monitor Pain Scale: 0-10 Numeric Is Patient Pain Free? Yes - Visit Discharge Discharge Condition Stable Stable Ambulatory Status Walker Ambulatory Transportation Private Auto Private Auto Wound debrided: #7 Right BKA stump, anterior. Laterality: Right Wound Grade/Stage: IV. Type of Debridement: Excisional debridement Anesthesia Used: 4% Lidocaine Solution Depth: Down to and including healthy tissue, in the subcutaneous layer Percentage of wound debrided: 100 Instrument Used: 3mm curette Tissue Removed: subcutaneous tissue. Severity: Fat Layer Exposed Amount of bleeding with debridement: Mild Bleeding Controlled with: Pressure Patient tolerated procedure well Assessment/Plan Assessment: 1. Nonhealing ulcer right BKA stump, anterior. 2. Diabetes. 3. PVD. 4. History of osteomyelitis. 5. Smoker. Plan: Begin Collagen Hydrogel to the ulcer right BKA stump. No bone is exposed. Ulcer more shallow and smaller. She has completed the EpiCord and EpiFix skin substitute grafts. Will apply for Regranex to try and continue to stimulate healing. Operative bone culture and tissue culture from 12/07/19 showed Staphylococcus aureus. She was placed on Doxycycline and has finished them. Her HgA1c is 10.5 from 12/07/19 and Prealbumin was 14. Encouraged increase in protein intake to help with wound healing. Pain management is now managing her pain medications. Encouraged the patient to stop smoking as it may have deleterious effects on wound healing. Followup one week. [id number]: [id number] Annalisa subq tissue 20 sq cm/< - ICD-10 - T87.89, E11.9, I73.9, Z87.39, F17.200
[2020-07-03 13:23] VITALS: BP 114/72; PULSE 100; RESP 20; TEMP 36.3; BMI 31.9
--- NOTE | 2020-07-04 09:07 | WC ---
Spoke to [employer] regarding the order that was placed a week ago and patient denies every receiving the product. The rep. for [employer] stated that they indeed receive her order and she was approved with no copay but the product itself is on backorder. They may see a shipment within a week or so and it will go out in order as which they received the order. Patient could possible have it shipped to her within 2 weeks. Tara was notified as well as the patient and she is to continue current dressings orders until product is available.
--- NOTE | 2020-07-05 15:51 | PCM.WC.PN ---
(1) Diabetic ulcer of lower extremity Status: Chronic Code(s): E11.622 - Type 2 diabetes mellitus with other skin ulcer; L97.909 - Non-pressure chronic ulcer of unspecified part of unspecified lower leg with unspecified severity (2) Hx of right BKA Status: Chronic Code(s): Z89.511 - Acquired absence of right leg below knee Comment: 1. Surgical preparation anterior aspect right BKA stump with excisional debridement nonhealing painful ulcer. 2. Partial ostectomy tibia for osteomyelitis. 3. 3 cm complex secondary wound closure - 06/11/19 1. 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 2. Partial ostectomy tibia for osteomyelitis. 3. Complex secondary wound closure revision reconstruction - 12/28/18 (3) PVD (peripheral vascular disease) Status: Chronic Code(s): I73.9 - Peripheral vascular disease, unspecified (4) DM2 (diabetes mellitus, type 2) Status: Chronic Qualifiers: Code(s): E11.9 - Type 2 diabetes mellitus without complications Type of Wound Date of Service: 07/03/20 Chief Complaint: Nohealing infected diabetic ulcer anterior aspect right BKA stump. History of Wound: Surgery 12/07/19 - 1. Surgical preparation right BKA stump with incision and drainage and excisional debridement infected hematoma (19.25 cm2). 2. Partial ostectomy tibia for osteomyelitis. Wound care- Finished Epicord and Epifix. Operative bone culture and tissue culture from 12/07/19 showed Staphylococcus aureus. She was treated with Doxycycline. Pathology was negative for osteomyelitis. Pathology from 06/26 was positive for osteomyelitis. Her HgA1c from 12/07/19 was 10.5. Prealbumin from 12/07/19 was 14. Another wound culture was obtained on 02/21/20. It showed Enterococcus faecalis. She was started on Augmentin and has finished them. She denies fever today and states her appetite is ok. Progress of Wound: Diabetic ulcer anterior aspect right BKA stump is stable. Her reGranix was ordered, but has not yet been received. Patient has been continuing to use hydrogel. The patient denies any fever, chills, nausea, vomiting, or diarrhea. Denies increasing pain, redness, swelling, or purulent/malodorous drainage from affected area. - Physical Exam Vital Signs Temp Pulse Resp BP Pulse Ox 97.3 F L 100 20 H 114/72 99 07/03/20 13:23 07/03/20 13:23 07/03/20 13:23 07/03/20 13:23 06/08/20 00:26 General: Alert, Cooperative, No apparent distress HEENT: Atraumatic, Normocephalic Oral: Moist Mucosa Lungs: Normal air movement Abdomen: Obese Extremities: No clubbing, No cyanosis, Capillary Refill Less than 3 Seconds Skin: Ulcer/ Wound - Right BKA diabetic ulcer with subcutaneous layer exposed. No periulcer erythema, swelling, or warmth. No purulent or malodorous drainage. Wound Measurements and Assessment WC - Nurse 1 - General Ulcer Measurement Start: 06/12/20 13:36 Freq: Status: Active Protocol: Activity Type Activity Date Activity User E-Sign Co-Sign Detail Recorded Client Recorded Date Recorded By Document 07/03/20 13:23 MARLON [id number] 07/03/20 13:25 DL 07/03/20 13:23 Wound Center Nurse 1 [Ulcer Assessment] 7-right BKA -Current Size (cm) - Length 0.1 -Current Size (cm) - Width 0.1 -Current Size (cm) - Depth 0.1 -Total Square Cm 0.01 -Photo Taken No -Exudate Amt None Present -Wound Margin Thickened -Granulation Amt None Present (0 %) -Necrosis Amt Small (1-33%) -Necrotic Tissue Type Eschar -Structure Exposed N/A -Texture (Love-wound Skin Appearance) Scarring -Moisture (Love-wound Skin Appearance No Abnormality ) -Color (Love-wound Skin Appearance) No Abnormality -Temperature (Love-wound Skin No Abnormality Appearance) (Pt Warm) -Tenderness on Palpation (Love-wound Yes Skin Appearance) -Ulcer Cleansing Rinsed/ Irrigated with Saline -Foul Odor after Cleansing No -Anesthetic Used 5% Lidocaine Gel - Nurse 2 - General Ulcer CM Notes Start: 06/12/20 13:36 Freq: Status: Active Protocol: Activity Type Activity Date Activity User E-Sign Co-Sign Detail Recorded Client Recorded Date Recorded By Document 07/03/20 14:03 SHAYNA [id number] 07/03/20 14:05 SHAYNA 07/03/20 14:03 Wound Center Nurse 2 [Procedure/Treatment] -Time 14:03 -Correct Patient Yes -Correct Side, Site, Position Yes -Correct Procedure Yes -Procedure Performed Yes -Type of Procedure Debridement -Clinical Debridement Subcutaneous -Tissue Removed Subcutaneous -Post Debridement (cm) - Length 0.6 -Post Debridement (cm) - Width 0.3 -Post Debridement (cm) - Depth 0.2 -Total Square (Post) (cm) 0.18 -Area of Debridement (cm) - Length 0.6 -Area of Debridement (cm) - Width 0.3 -Total Square (Area) (cm) 0.18 -Tunneling No -Undermining/Tunneling No -Circular Undermining No -Wound/Ulcer Outcome Not Healed -Ulcer Cleansing Rinsed/ Irrigated with Saline -Foul Odor after Cleansing No -Bioengineered Tissue No -Bleeding Controlled with Pressure -Offloading No -Treatment Response Procedure Tolerated Well -Debridement - Subq, 1st 20sq cm Yes [See Physician Procedure note for Specifics] Pain Scale: 0-10 Numeric [Pain] -Is Patient Pain Free? Yes - Nurse 3 - General Ulcer D/C NN Start: 06/12/20 13:36 Freq: Status: Active Protocol: Activity Type Activity Date Activity User E-Sign Co-Sign Detail Recorded Client Recorded Date Recorded By Document 07/03/20 14:17 [facility] [id number] 07/03/20 14:18 [facility] 07/03/20 14:17 Wound Care Nurse 3 [Wound Dressing] 7-right BKA -Ulcer Cleansing Rinsed/ Irrigated with Saline -Foul Odor after Cleansing No -Primary Dressing Applied C Hydrogel ($) -Primary Dressing Covered/Secured Dry Gauze, with Secured with Tape [Compression Applied] Right -Compression Wrap Javier Wrap Pain Scale: 0-10 Numeric [Pain] -Is Patient Pain Free? Yes - Visit Discharge [Visit Discharge Information] -Discharge Condition Stable -Ambulatory Status Ambulatory, Walker -Transportation Private Auto -Notes: knee walker Psych/Mental Status: Normal Affect, Appropriate Debridement Note Post-Debridement Measurements/Treatment - Nurse 2 - General Ulcer CM Notes Start: 06/12/20 13:36 Freq: Status: Active Protocol: Activity Type Activity Date Activity User E-Sign Co-Sign Detail Recorded Client Recorded Date Recorded By Document 06/12/20 13:57 [id number] 06/12/20 13:59 Document 06/26/20 11:52 [id number] 06/26/20 11:55 Document 07/03/20 14:03 [id number] 07/03/20 14:05 06/12/20 06/26/20 07/03/20 13:57 11:52 14:03 Wound Center Nurse 2 7-right BKA -Time 13:57 11:54 14:03 -Correct Patient Yes Yes Yes -Correct Side, Site, Position Yes Yes Yes -Correct Procedure Yes Yes Yes -Procedure Performed Yes Yes Yes -Type of Procedure Debridement Debridement Debridement -Clinical Debridement Subcutaneous Subcutaneous Subcutaneous -Tissue Removed Subcutaneous Subcutaneous Subcutaneous -Post Debridement (cm) - Length 0.7 0.2 0.6 -Post Debridement (cm) - Width 0.3 0.2 0.3 -Post Debridement (cm) - Depth 0.3 0.3 0.2 -Total Square (Post) (cm) 0.21 0.04 0.18 -Area of Debridement (cm) - Length 0.7 0.2 0.6 -Area of Debridement (cm) - Width 0.3 0.2 0.3 -Total Square (Area) (cm) 0.21 0.04 0.18 -Tunneling No No No -Undermining/Tunneling No No No -Circular Undermining No No No -Wound/Ulcer Outcome Not Healed Not Healed Not Healed -Ulcer Cleansing Rinsed/ Rinsed/ Rinsed/ Irrigated with Irrigated with Irrigated with Saline Saline Saline -Foul Odor after Cleansing No No No -Bioengineered Tissue Yes No No -Type of Bioengineered Tissue Epifix 18mm Disc -Expiration Date 02/06/25 -Product Lot Number [id number] -Percent Used 100 -Saline Lot Number [id number] -Bleeding Controlled with Pressure Pressure Pressure -Offloading Yes Yes No -Type of Offloading Knee Walker Knee Walker -Treatment Response Procedure Procedure Procedure Tolerated Well Tolerated Well Tolerated Well -Debridement - Subq, 1st 20sq cm No Yes Yes -Apply Skin Sub - 1st 25 sq cm - Legs 1 -Epifix 18mm Disc 3 Pain Scale: 0-10 Numeric Is Patient Pain Free? Yes Yes Yes WC - Nurse 3 - General Ulcer D/C NN Start: 06/12/20 13:36 Freq: Status: Active Protocol: Activity Type Activity Date Activity User E-Sign Co-Sign Detail Recorded Client Recorded Date Recorded By Document 06/12/20 14:07 MS [id number] 06/12/20 14:10 MS Document 06/26/20 12:02 MS [id number] 06/26/20 12:07 MS Document 07/03/20 14:17 [facility] [id number] 07/03/20 14:18 [facility] 06/12/20 06/26/20 07/03/20 14:07 12:02 14:17 Wound Care Nurse 3 7-right BKA -Ulcer Cleansing Rinsed/ Rinsed/ Irrigated with Irrigated with Saline Saline -Foul Odor after Cleansing No No No -Primary Dressing Applied C Hydrogel ($) -Other Dressing adaptic, hydrogel steristrips -Primary Dressing Covered/Secured with Dry Gauze, Dry Gauze, Secured with Secured with Tape Tape -Other Covering epifix Right -Compression Wrap Javier Wrap Javier Wrap -Stockings No Treatment Response Procedure Tolerated Well Vital Signs Pulse Rate (60-100) 96 Pulse Location Monitor Blood Pressure (90/60-120/80) 119/76 Blood Pressure Mean (mm Hg) 90 Source Monitor Pain Scale: 0-10 Numeric Is Patient Pain Free? Yes Yes WC - Visit Discharge Discharge Condition Stable Stable Stable Ambulatory Status Walker Ambulatory Ambulatory, Walker Transportation Private Auto Private Auto Private Auto Notes: knee walker Wound debrided: Anterior BKA stump ulcer Laterality: Right Type of Debridement: Excisional debridement Anesthesia Used: 4% Lidocaine Solution Depth: in the subcutaneous layer Percentage of wound debrided: 100 Instrument Used: 3mm curette Tissue Removed: Slough and devitalized tissue Severity: Fat Layer Exposed Amount of bleeding with debridement: Mild Bleeding Controlled with: Pressure Patient tolerated procedure well Assessment/Plan Assessment: 1. Nonhealing ulcer right BKA stump, anterior. 2. Diabetes. 3. PVD. 4. History of osteomyelitis. 5. Smoker. Plan: Continue Collagen Hydrogel to the ulcer right BKA stump. No bone is exposed. Ulcer remains shallow and small. She has completed the EpiCord and EpiFix skin substitute grafts. Regranex to try and continue to stimulate healing. Regranex is on back-order and has not yet been received. Operative bone culture and tissue culture from 12/07/19 showed Staphylococcus aureus. She was placed on Doxycycline and has finished them. Her HgA1c is 10.5 from 12/07/19 and Prealbumin was 14. Encouraged increase in protein intake to help with wound healing. Pain management is now managing her pain medications. Encouraged the patient to stop smoking as it may have deleterious effects on wound healing. Followup one week. Follow-up sooner should new or concerning symptoms arise. Note: [employer] speech recognition bobbin fixer software was used to create portions of this document. Sound-alike and misspelled words, as well as other bobbin fixer errors may be contained in the documentation. [id number]: [id number] Annalisa subq tissue 20 sq cm/<
== END 2020-07-08 23:59 ==
LOC: WC 13:15
PROVIDERS: Family Provider Internal Medicine; PCP Internal Medicine; Visit Provider Surgery
DX: E11.622 Type 2 diabetes mellitus with other skin ulcer (principal); Z89.511 Acquired absence of right leg below knee; E11.51 Type 2 diabetes mellitus with diabetic peripheral angiopathy without gangrene; F17.200 Nicotine dependence, unspecified, uncomplicated; T87.89 Other complications of amputation stump; Y83.8 Other surgical procedures as the cause of abnormal reaction of the patient, or of later complication, without mention of misadventure at the time of the procedure; L97.812 Non-pressure chronic ulcer of other part of right lower leg with fat layer exposed; M86.9 Osteomyelitis, unspecified; E11.69 Type 2 diabetes mellitus with other specified complication
CPT/HCPCS: 11042; 15271; Q4186

== ENCOUNTER 2020-07-24 10:30 | Outpatient (RCR) | payer MEDICARE, MEDICAID, SELFPAY ==
[2020-07-09 00:16] VITALS: BP 114/72; PULSE 100; RESP 20; TEMP 36.3; O2SAT 99
[2020-07-10 13:16] VITALS: BP 132/83; PULSE 94; RESP 20; TEMP 36.6; BMI 31.9
--- NOTE | 2020-07-10 14:59 | PN.PCM_ITS ---
(1) Ulcer of right leg Status: Chronic Qualifiers: Non-pressure ulcer stage: with fat layer exposed Qualified Code(s): L97.912 - Non-pressure chronic ulcer of unspecified part of right lower leg with fat layer exposed Code(s): L97.919 - Non-pressure chronic ulcer of unspecified part of right lower leg with unspecified severity (2) Polyneuropathy due to type 2 diabetes mellitus Status: Chronic Code(s): E11.42 - Type 2 diabetes mellitus with diabetic polyneuropathy (3) Diabetic ulcer of lower extremity Status: Chronic Code(s): E11.622 - Type 2 diabetes mellitus with other skin ulcer; L97.909 - Non-pressure chronic ulcer of unspecified part of unspecified lower leg with unspecified severity (4) 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 Status: Chronic Code(s): T87.89 - Other complications of amputation stump; M79.604 - Pain in right leg Comment: right BKA (5) Tobacco abuse Status: Chronic Code(s): Z72.0 - Tobacco use (6) Hx of right BKA Status: Chronic Code(s): Z89.511 - Acquired absence of right leg below knee Comment: 1. Surgical preparation anterior aspect right BKA stump with excisional debridement nonhealing painful ulcer. 2. Partial ostectomy tibia for osteomyelitis. 3. 3 cm complex secondary wound closure - 06/11/19 1. 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 2. Partial ostectomy tibia for osteomyelitis. 3. Complex secondary wound closure revision reconstruction - 12/28/18 Type of Wound Date of Service: 07/10/20 Chief Complaint: Nohealing infected diabetic ulcer anterior aspect right BKA stump. History of Wound: Surgery 12/07/19 - 1. Surgical preparation right BKA stump with incision and drainage and excisional debridement infected hematoma (19.25 cm2). 2. Partial ostectomy tibia for osteomyelitis. Wound care- Finished Epicord and Epifix. Approved for Regranex which we are waiting for it to be delivered. It is on back order. She will apply Collagen hydrogel covered with gauze until the Regranex is started. Because of the amount of pain she is experiencing today a wound culture was obtained (07/10/20). Operative bone culture and tissue culture from 3/31/20 showed Staphylococcus aureus. She was treated with Doxycycline. Pathology was negative for osteomyelitis. Pathology from 06/26 was positive for osteomyelitis. Her HgA1c from 12/07/19 was 10.5. Prealbumin from 12/07/19 was 14. Another wound culture was obtained on 02/21/20. It showed Enterococcus faecalis. She was started on Augmentin and has finished them. She denies fever today and states her appetite is ok. Progress of Wound: Stable - Physical Exam Vital Signs Temp Pulse Resp BP Pulse Ox 98 F 94 20 H 132/83 H 99 07/10/20 13:16 07/10/20 13:16 07/10/20 13:16 07/10/20 13:16 07/09/20 00:16 General: Alert, Oriented x3, Cooperative HEENT: Atraumatic Oral: Moist Mucosa Lungs: Normal air movement Cardiovascular: Regular rate Abdomen: Soft Extremities: Capillary Refill Less than 3 Seconds Skin: Ulcer/ Wound - Ulcer on right below knee amputation. Area is very tender, especially to palpation. There is no redness or ordor present. There is minimal drainage. Wound Measurements and Assessment WC - Nurse 1 - General Ulcer Measurement Start: 07/10/20 13:16 Freq: Status: Active Protocol: Activity Type Activity Date Activity User E-Sign Co-Sign Detail Recorded Client Recorded Date Recorded By Document 07/10/20 13:16 DL [id number] 07/10/20 13:21 DL 07/10/20 13:16 Wound Center Nurse 1 [Ulcer Assessment] 7-right BKA -Current Size (cm) - Length 0.3 -Current Size (cm) - Width 0.2 -Current Size (cm) - Depth 0.2 -Total Square Cm 0.06 -Photo Taken No -Exudate Amt Small -Exudate Type Serosanguineous -Wound Margin Distinct, Outline Attached -Granulation Amt Small (1-33%) -Granulation Quality Venturia -Necrosis Amt Small (1-33%) -Necrotic Tissue Type Adherent Slough -Structure Exposed N/A -Texture (Love-wound Skin Appearance) Scarring -Moisture (Love-wound Skin Appearance No Abnormality ) -Color (Love-wound Skin Appearance) No Abnormality -Temperature (Love-wound Skin No Abnormality Appearance) (Pt Warm) -Tenderness on Palpation (Love-wound Yes Skin Appearance) -Ulcer Cleansing Rinsed/ Irrigated with Saline -Foul Odor after Cleansing No -Anesthetic Used 4% Lidocaine Solution - Nurse 2 - General Ulcer CM Notes Start: 07/10/20 13:16 Freq: Status: Active Protocol: Activity Type Activity Date Activity User E-Sign Co-Sign Detail Recorded Client Recorded Date Recorded By Document 07/10/20 13:36 [id number] 07/10/20 13:38 07/10/20 13:36 Wound Center Nurse 2 [Procedure/Treatment] -Time 13:38 -Correct Patient Yes -Correct Side, Site, Position Yes -Correct Procedure Yes -Procedure Performed Yes -Type of Procedure Debridement -Clinical Debridement Subcutaneous -Tissue Removed Subcutaneous -Post Debridement (cm) - Length 0.4 -Post Debridement (cm) - Width 0.2 -Post Debridement (cm) - Depth 0.3 -Total Square (Post) (cm) 0.08 -Area of Debridement (cm) - Length 0.4 -Area of Debridement (cm) - Width 0.2 -Total Square (Area) (cm) 0.08 -Tunneling No -Undermining/Tunneling No -Circular Undermining No -Wound/Ulcer Outcome Not Healed -Ulcer Cleansing Rinsed/ Irrigated with Saline -Foul Odor after Cleansing No -Bioengineered Tissue No -Bleeding Controlled with Pressure -Offloading Yes -Type of Offloading Knee Walker -Treatment Response Procedure Tolerated Well -Debridement - Subq, 1st 20sq cm Yes [See Physician Procedure note for Specifics] Pain Scale: 0-10 Numeric [Pain] -Is Patient Pain Free? Yes - Nurse 3 - General Ulcer D/C NN Start: 07/10/20 13:16 Freq: Status: Active Protocol: Activity Type Activity Date Activity User E-Sign Co-Sign Detail Recorded Client Recorded Date Recorded By Document 07/10/20 13:48 [id number] 07/10/20 13:48 07/10/20 13:48 Wound Care Nurse 3 [Wound Dressing] 7-right BKA -Ulcer Cleansing Rinsed/ Irrigated with Saline -Foul Odor after Cleansing No -Primary Dressing Applied C Hydrogel ($) -Primary Dressing Covered/Secured Dry Gauze, with Secured with Tape Pain Scale: 0-10 Numeric [Pain] -Is Patient Pain Free? Yes - Visit Discharge [Visit Discharge Information] -Discharge Condition Stable -Ambulatory Status Wheelchair -Transportation Private Auto -Medication Reconcilliation completed Yes & provided to patient/care provider -Clinical Summary of Care Provided Yes Musculoskeletal: No Tenderness to Palpation of Joints or Extremities Neurological: Neuro grossly intact Psych/Mental Status: Normal Affect, Appropriate Debridement Note Post-Debridement Measurements/Treatment SOL - Nurse 2 - General Ulcer CM Notes Start: 07/10/20 13:16 Freq: Status: Active Protocol: Activity Type Activity Date Activity User E-Sign Co-Sign Detail Recorded Client Recorded Date Recorded By Document 07/10/20 13:36 [id number] 07/10/20 13:38 07/10/20 13:36 Wound Center Nurse 2 7-right BKA -Time 13:38 -Correct Patient Yes -Correct Side, Site, Position Yes -Correct Procedure Yes -Procedure Performed Yes -Type of Procedure Debridement -Clinical Debridement Subcutaneous -Tissue Removed Subcutaneous -Post Debridement (cm) - Length 0.4 -Post Debridement (cm) - Width 0.2 -Post Debridement (cm) - Depth 0.3 -Total Square (Post) (cm) 0.08 -Area of Debridement (cm) - Length 0.4 -Area of Debridement (cm) - Width 0.2 -Total Square (Area) (cm) 0.08 -Tunneling No -Undermining/Tunneling No -Circular Undermining No -Wound/Ulcer Outcome Not Healed -Ulcer Cleansing Rinsed/ Irrigated with Saline -Foul Odor after Cleansing No -Bioengineered Tissue No -Bleeding Controlled with Pressure -Offloading Yes -Type of Offloading Knee Walker -Treatment Response Procedure Tolerated Well -Debridement - Subq, 1st 20sq cm Yes Pain Scale: 0-10 Numeric Is Patient Pain Free? Yes - Nurse 3 - General Ulcer D/C NN Start: 07/10/20 13:16 Freq: Status: Active Protocol: Activity Type Activity Date Activity User E-Sign Co-Sign Detail Recorded Client Recorded Date Recorded By Document 07/10/20 13:48 [id number] 07/10/20 13:48 07/10/20 13:48 Wound Care Nurse 3 7-right BKA -Ulcer Cleansing Rinsed/ Irrigated with Saline -Foul Odor after Cleansing No -Primary Dressing Applied C Hydrogel ($) -Primary Dressing Covered/Secured with Dry Gauze, Secured with Tape Pain Scale: 0-10 Numeric Is Patient Pain Free? Yes WC - Visit Discharge Discharge Condition Stable Ambulatory Status Wheelchair Transportation Private Auto Medication Reconcilliation completed & Yes provided to patient/care provider Clinical Summary of Care Provided Yes Wound debrided: BKA ulcer Laterality: Right Type of Debridement: Excisional debridement Anesthesia Used: 5% Lidocaine Gel Depth: Down to and including healthy tissue, in the subcutaneous layer Instrument Used: - - 1 mm curette Tissue Removed: Subcutaneous tissue and slough Severity: Fat Layer Exposed Amount of bleeding with debridement: None Bleeding Controlled with: Pressure Patient tolerated procedure well Assessment/Plan Active Problems (Last Reviewed 05/24/20 @ 16:42 by Priscila Lopez) Polyneuropathy due to type 2 diabetes mellitus (Chronic) Diabetic ulcer of lower extremity (Chronic) 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 (Chronic) right BKA Tobacco abuse (Chronic) Hx of right BKA (Chronic) 1. Surgical preparation anterior aspect right BKA stump with excisional debridement nonhealing painful ulcer. 2. Partial ostectomy tibia for osteomyelitis. 3. 3 cm complex secondary wound closure - 06/11/19 1. 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 2. Partial ostectomy tibia for osteomyelitis. 3. Complex secondary wound closure revision reconstruction - 12/28/18 Assessment: 1. Nonhealing ulcer right BKA stump, anterior. 2. Diabetes. 3. PVD. 4. History of osteomyelitis. 5. Smoker. Plan: Continue Collagen Hydrogel to the ulcer right BKA stump. No bone is exposed. Ulcer remains shallow and small. She has completed the EpiCord and EpiFix skin substitute grafts. Regranex to try and continue to stimulate healing. Regranex is on back-order and has not yet been received. Operative bon e culture and tissue culture from 12/07/19 showed Staphylococcus aureus. She was placed on Doxycycline and has finished them. Her HgA1c is 10.5 from 12/07/19 and Prealbumin was 14. Encouraged increase in protein intake to help with wound healing. Pain management is now managing her pain medications. Encouraged the patient to stop smoking as it may have deleterious effects on wound healing. Followup two weeks. Follow-up sooner should new or concerning symptoms arise. [id number]: [id number] Annalisa subq tissue 20 sq cm/<
[2020-07-24 10:44] VITALS: TEMP 36.6; BMI 31.9
--- NOTE | 2020-07-24 16:01 | PCM.WC.PN ---
Type of Wound Date of Service: 07/24/20 Chief Complaint: Nohealing infected diabetic ulcer anterior aspect right BKA stump. History of Wound: Surgery 12/07/19 - 1. Surgical preparation right BKA stump with incision and drainage and excisional debridement infected hematoma (19.25 cm2). 2. Partial ostectomy tibia for osteomyelitis. Wound care- Finished Epicord and Epifix. Now using Collagen Hydrogel. Has been approved for Regranex. Awaiting shipment. Operative bone culture and tissue culture from 12/07/19 showed Staphylococcus aureus. She was treated with Doxycycline. Pathology was negative for osteomyelitis. Pathology from 06/26 was positive for osteomyelitis. Her HgA1c from 12/07/19 was 10.5. Prealbumin from 12/07/19 was 14. Another wound culture was obtained on 02/21/20. It showed Enterococcus faecalis. She was started on Augmentin and has finished them. She santiago another wound culture on 07/11/20. It showed Anaerococcus prevoti and Anaerobic cocci. She was placed on Augmentin. She denies fever today and states her appetite is ok. Progress of Wound: Slightly improved. - Physical Exam Vital Signs Temp Pulse Resp BP Pulse Ox 97.8 F 94 20 H 132/83 H 99 07/24/20 10:44 07/10/20 13:16 07/10/20 13:16 07/10/20 13:16 07/09/20 00:16 Wound Measurements and Assessment WC - Nurse 1 - General Ulcer Measurement Start: 07/10/20 13:16 Freq: Status: Active Protocol: Activity Type Activity Date Activity User E-Sign Co-Sign Detail Recorded Client Recorded Date Recorded By Document 07/24/20 10:44 [email or web address] [id number] 07/24/20 10:53 [email or web address] 07/24/20 10:44 Wound Center Nurse 1 [Ulcer Assessment] 7-right BKA -Combined with other wound No -Current Size (cm) - Length 0.5 -Current Size (cm) - Width 0.2 -Current Size (cm) - Depth 0.1 -Total Square Cm 0.10 -Photo Taken No -Epithelialization Small 1-33% -Circular Undermining No -Exudate Amt Small -Exudate Type Yellow/Green -Wound Margin Distinct, Outline Attached -Granulation Amt Small (1-33%) -Granulation Quality Red -Necrosis Amt Small (1-33%) -Necrotic Tissue Type Adherent Slough -Texture (Love-wound Skin Appearance) Assessed, Scarring -Moisture (Love-wound Skin Appearance No Abnormality ) -Color (Love-wound Skin Appearance) No Abnormality -Temperature (Love-wound Skin No Abnormality Appearance) (Pt Warm) -Tenderness on Palpation (Love-wound Yes Skin Appearance) -Ulcer Cleansing Rinsed/ Irrigated with Saline -Foul Odor after Cleansing No -Anesthetic Used 4% Lidocaine Solution SOL - Nurse 2 - General Ulcer CM Notes Start: 07/10/20 13:16 Freq: Status: Active Protocol: Activity Type Activity Date Activity User E-Sign Co-Sign Detail Recorded Client Recorded Date Recorded By Document 07/24/20 11:05 [email or web address] [id number] 07/24/20 11:07 JF 07/24/20 11:05 Wound Center Nurse 2 [Procedure/Treatment] -Time 11:07 -Correct Patient Yes -Correct Side, Site, Position Yes -Correct Procedure Yes -Procedure Performed Yes -Type of Procedure Debridement -Clinical Debridement Subcutaneous -Tissue Removed Subcutaneous -Post Debridement (cm) - Length 0.5 -Post Debridement (cm) - Width 0.5 -Post Debridement (cm) - Depth 0.3 -Total Square (Post) (cm) 0.25 -Area of Debridement (cm) - Length 0.5 -Area of Debridement (cm) - Width 0.5 -Total Square (Area) (cm) 0.25 -Tunneling No -Undermining/Tunneling No -Circular Undermining No -Wound/Ulcer Outcome Not Healed -Ulcer Cleansing Rinsed/ Irrigated with Saline -Foul Odor after Cleansing No -Bioengineered Tissue No -Bleeding Controlled with Pressure -Offloading Yes -Type of Offloading Knee Walker -Treatment Response Procedure Tolerated Well -Debridement - Subq, 1st 20sq cm Yes [See Physician Procedure note for Specifics] Pain Scale: 0-10 Numeric [Pain] -Is Patient Pain Free? Yes SOL - Nurse 3 - General Ulcer D/C NN Start: 07/10/20 13:16 Freq: Status: Active Protocol: Activity Type Activity Date Activity User E-Sign Co-Sign Detail Recorded Client Recorded Date Recorded By Document 07/24/20 11:15 DL [id number] 07/24/20 11:16 DL 07/24/20 11:15 Wound Care Nurse 3 [Wound Dressing] 7-right BKA -Ulcer Cleansing Rinsed/ Irrigated with Saline -Foul Odor after Cleansing No -Other Dressing Hydrogel -Primary Dressing Covered/Secured Dry Gauze & with Roll Gauze, Secured with Tape -Other Covering olya [Post Procedure Tolerated] -Treatment Response Procedure Tolerated Well Pain Scale: 0-10 Numeric [Pain] -Is Patient Pain Free? Yes - Visit Discharge [Visit Discharge Information] -Discharge Condition Stable -Ambulatory Status Ambulatory, Walker -Transportation Private Auto Debridement Note Post-Debridement Measurements/Treatment - Nurse 2 - General Ulcer CM Notes Start: 07/10/20 13:16 Freq: Status: Active Protocol: Activity Type Activity Date Activity User E-Sign Co-Sign Detail Recorded Client Recorded Date Recorded By Document 07/10/20 13:36 [id number] 07/10/20 13:38 Document 07/24/20 11:05 [id number] 07/24/20 11:07 07/10/20 07/24/20 13:36 11:05 Wound Center Nurse 2 7-right BKA -Time 13:38 11:07 -Correct Patient Yes Yes -Correct Side, Site, Position Yes Yes -Correct Procedure Yes Yes -Procedure Performed Yes Yes -Type of Procedure Debridement Debridement -Clinical Debridement Subcutaneous Subcutaneous -Tissue Removed Subcutaneous Subcutaneous -Post Debridement (cm) - Length 0.4 0.5 -Post Debridement (cm) - Width 0.2 0.5 -Post Debridement (cm) - Depth 0.3 0.3 -Total Square (Post) (cm) 0.08 0.25 -Area of Debridement (cm) - Length 0.4 0.5 -Area of Debridement (cm) - Width 0.2 0.5 -Total Square (Area) (cm) 0.08 0.25 -Tunneling No No -Undermining/Tunneling No No -Circular Undermining No No -Wound/Ulcer Outcome Not Healed Not Healed -Ulcer Cleansing Rinsed/ Rinsed/ Irrigated with Irrigated with Saline Saline -Foul Odor after Cleansing No No -Bioengineered Tissue No No -Bleeding Controlled with Pressure Pressure -Offloading Yes Yes -Type of Offloading Knee Walker Knee Walker -Treatment Response Procedure Procedure Tolerated Well Tolerated Well -Debridement - Subq, 1st 20sq cm Yes Yes Pain Scale: 0-10 Numeric Is Patient Pain Free? Yes Yes - Nurse 3 - General Ulcer D/C NN Start: 07/10/20 13:16 Freq: Status: Active Protocol: Activity Type Activity Date Activity User E-Sign Co-Sign Detail Recorded Client Recorded Date Recorded By Document 07/10/20 13:48 [id number] 07/10/20 13:48 Document 07/24/20 11:15 DL [id number] 07/24/20 11:16 DL 07/10/20 07/24/20 13:48 11:15 Wound Care Nurse 3 7-right BKA -Ulcer Cleansing Rinsed/ Rinsed/ Irrigated with Irrigated with Saline Saline -Foul Odor after Cleansing No No -Primary Dressing Applied C Hydrogel ($) -Other Dressing Hydrogel -Primary Dressing Covered/Secured with Dry Gauze, Dry Gauze & Secured with Roll Gauze, Tape Secured with Tape -Other Covering olya Treatment Response Procedure Tolerated Well Pain Scale: 0-10 Numeric Is Patient Pain Free? Yes Yes WC - Visit Discharge Discharge Condition Stable Stable Ambulatory Status Wheelchair Ambulatory, Walker Transportation Private Auto Private Auto Medication Reconcilliation completed & Yes provided to patient/care provider Clinical Summary of Care Provided Yes Wound debrided: #7 Right BKA stump, anterior. Laterality: Right Wound Grade/Stage: IV. Type of Debridement: Excisional debridement Anesthesia Used: 4% Lidocaine Solution Depth: Down to and including healthy tissue, in the subcutaneous layer Percentage of wound debrided: 100 Instrument Used: 3mm curette Tissue Removed: subcutaneous tissue. Severity: Fat Layer Exposed Amount of bleeding with debridement: Mild Bleeding Controlled with: Pressure Patient tolerated procedure well Assessment/Plan Active Problems (Last Reviewed 05/24/20 @ 16:42 by Priscila Lopez) Ulcer of right leg (Chronic) Polyneuropathy due to type 2 diabetes mellitus (Chronic) Diabetic ulcer of lower extremity (Chronic) 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 (Chronic) right BKA Tobacco abuse (Chronic) Hx of right BKA (Chronic) 1. Surgical preparation anterior aspect right BKA stump with excisional debridement nonhealing painful ulcer. 2. Partial ostectomy tibia for osteomyelitis. 3. 3 cm complex secondary wound closure - 06/11/19 1. 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 2. Partial ostectomy tibia for osteomyelitis. 3. Complex secondary wound closure revision reconstruction - 12/28/18 Assessment: 1. Nonhealing ulcer right BKA stump, anterior. 2. Diabetes. 3. PVD. 4. History of osteomyelitis. 5. Smoker. Plan: Continue Collagen Hydrogel to the ulcer right BKA stump. No bone is exposed. Ulcer more shallow and smaller. She has completed the EpiCord and EpiFix skin substitute grafts. The Regranex has been approved to try and continue to stimulate healing. Awaiting shipment. Operative bone culture and tissue culture from 12/07/19 showed Staphylococcus aureus. She was placed on Doxycycline and has finished them. She had a recent wound culture on 07/11/20. It showed Anaerococcus prevoti and Anaerobic cocci. She was placed on Augmentin. Her HgA1c is 10.5 from 12/07/19 and Prealbumin was 14. Encouraged increase in protein intake to help with wound healing. Pain management is now managing her pain medications. Encouraged the patient to stop smoking as it may have deleterious effects on wound healing. Followup 2 weeks. 111xxx-113xx: [id number] Annalisa subq tissue 20 sq cm/< - ICD-10 - T87.89, E11.9, I73.9, Z87.39, F17.200
--- NOTE | 2020-08-07 15:41 | WC ---
Patient missed her appt today and called in later stating she had had more pain in the wound region. She completed her antibiotics as ordered. Lacey aware of findings, no new orders given other than to have her keep her appt for next Friday and if she experiences increase pain to call Wound Center to be seen sooner. Patient verbalized understanding.
== END 2020-08-07 23:59 ==
LOC: WC 10:30
PROVIDERS: Family Provider Internal Medicine; PCP Internal Medicine; Visit Provider Surgery
DX: E11.622 Type 2 diabetes mellitus with other skin ulcer (principal); E11.42 Type 2 diabetes mellitus with diabetic polyneuropathy; Z72.0 Tobacco use; Z89.511 Acquired absence of right leg below knee; L97.812 Non-pressure chronic ulcer of other part of right lower leg with fat layer exposed; E11.51 Type 2 diabetes mellitus with diabetic peripheral angiopathy without gangrene; T87.89 Other complications of amputation stump; Y83.5 Amputation of limb(s) as the cause of abnormal reaction of the patient, or of later complication, without mention of misadventure at the time of the procedure
CPT/HCPCS: 11042; 87070; 87075; 87077; 87205

== ENCOUNTER 2020-08-28 11:15 | Outpatient (RCR) | payer MEDICARE, MEDICAID, SELFPAY ==
[2020-08-08 00:17] VITALS: BP 132/83; PULSE 94; RESP 20; TEMP 36.6; O2SAT 99
[2020-08-14 10:36] VITALS: BP 131/71; PULSE 102; RESP 18; TEMP 36.4; BMI 31.9
--- NOTE | 2020-08-14 13:06 | PN.PCM_ITS ---
(1) Ulcer of right leg Status: Chronic Qualifiers: Non-pressure ulcer stage: with fat layer exposed Qualified Code(s): L97.912 - Non-pressure chronic ulcer of unspecified part of right lower leg with fat layer exposed Code(s): L97.919 - Non-pressure chronic ulcer of unspecified part of right lower leg with unspecified severity (2) Diabetic ulcer of lower extremity Status: Chronic Code(s): E11.622 - Type 2 diabetes mellitus with other skin ulcer; L97.909 - Non-pressure chronic ulcer of unspecified part of unspecified lower leg with unspecified severity (3) Polyneuropathy due to type 2 diabetes mellitus Status: Chronic Code(s): E11.42 - Type 2 diabetes mellitus with diabetic polyneuropathy (4) 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 Status: Chronic Code(s): T87.89 - Other complications of amputation stump; M79.604 - Pain in right leg Comment: right BKA (5) Hx of right BKA Status: Chronic Code(s): Z89.511 - Acquired absence of right leg below knee Comment: 1. Surgical preparation anterior aspect right BKA stump with excisional debridement nonhealing painful ulcer. 2. Partial ostectomy tibia for osteomyelitis. 3. 3 cm complex secondary wound closure - 06/11/19 1. 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 2. Partial ostectomy tibia for osteomyelitis. 3. Complex secondary wound closure revision reconstruction - 12/28/18 (6) PVD (peripheral vascular disease) Status: Chronic Code(s): I73.9 - Peripheral vascular disease, unspecified Type of Wound Date of Service: 08/14/20 Chief Complaint: Nohealing infected diabetic ulcer anterior aspect right BKA stump. History of Wound: Surgery 12/07/19 - 1. Surgical preparation right BKA stump with incision and drainage and excisional debridement infected hematoma (19.25 cm2). 2. Partial ostectomy tibia for osteomyelitis. Wound care- Finished Epicord and Epifix. Now using Collagen Hydrogel. Has been approved for Regranex. Awaiting shipment. Operative bone culture and tissue culture from 12/07/19 showed Staphylococcus aureus. She was treated with Doxycycline. Pathology was negative for osteomyelitis. Pathology from 06/26 was positive for osteomyelitis. Her HgA1c from 3/31/20 was 10.5. Prealbumin from 12/07/19 was 14. Another wound culture was obtained on 02/21/20. It showed Enterococcus faecalis. She was started on Augmentin and has finished them. She santiago another wound culture on 07/11/20. It showed Anaerococcus prevoti and Anaerobic cocci. She was placed on Augmentin. She denies fever today and states her appetite is ok. Progress of Wound: Stable. - Physical Exam Vital Signs Temp Pulse Resp BP Pulse Ox 97.5 F L 102 H 18 131/71 H 99 08/14/20 10:36 08/14/20 10:36 08/14/20 10:36 08/14/20 10:36 08/08/20 00:17 General: Alert, Oriented x3, Cooperative HEENT: Atraumatic Oral: Moist Mucosa Lungs: Normal air movement Cardiovascular: Regular rate Abdomen: Obese Extremities: Capillary Refill Less than 3 Seconds, Edema, Tenderness - right BKA stump is tender to touch at the site of the ulcer Skin: Ulcer/ Wound - Right BKA stump Wound Measurements and Assessment WC - Nurse 1 - General Ulcer Measurement Start: 08/14/20 10:36 Freq: Status: Active Protocol: Activity Type Activity Date Activity User E-Sign Co-Sign Detail Recorded Client Recorded Date Recorded By Document 08/14/20 10:36 DL [id number] 08/14/20 10:44 DL 08/14/20 10:36 Wound Center Nurse 1 [Ulcer Assessment] 7-right BKA -Current Size (cm) - Length 0.2 -Current Size (cm) - Width 0.2 -Current Size (cm) - Depth 0.1 -Total Square Cm 0.04 -Photo Taken No -Exudate Amt None Present -Wound Margin Flat & Intact -Granulation Amt Small (1-33%) -Granulation Quality [place] -Necrosis Amt Small (1-33%) -Necrotic Tissue Type Adherent Slough -Structure Exposed N/A -Texture (Love-wound Skin Appearance) Scarring -Moisture (Love-wound Skin Appearance No Abnormality ) -Color (Love-wound Skin Appearance) No Abnormality, Rubor -Temperature (Love-wound Skin No Abnormality Appearance) (Pt Warm) -Tenderness on Palpation (Love-wound No Skin Appearance) -Ulcer Cleansing Rinsed/ Irrigated with Saline -Foul Odor after Cleansing No -Anesthetic Used 4% Lidocaine Solution - Nurse 2 - General Ulcer CM Notes Start: 08/14/20 10:36 Freq: Status: Active Protocol: Activity Type Activity Date Activity User E-Sign Co-Sign Detail Recorded Client Recorded Date Recorded By Document 08/14/20 11:06 [id number] 08/14/20 11:08 SHAYNA 08/14/20 11:06 Wound Center Nurse 2 [Procedure/Treatment] -Time 11:07 -Correct Patient Yes -Correct Side, Site, Position Yes -Correct Procedure Yes -Procedure Performed Yes -Type of Procedure Debridement -Clinical Debridement Subcutaneous -Tissue Removed Subcutaneous -Post Debridement (cm) - Length 0.5 -Post Debridement (cm) - Width 0.3 -Post Debridement (cm) - Depth 0.3 -Total Square (Post) (cm) 0.15 -Area of Debridement (cm) - Length 0.5 -Area of Debridement (cm) - Width 0.3 -Total Square (Area) (cm) 0.15 -Tunneling No -Undermining/Tunneling No -Circular Undermining No -Wound/Ulcer Outcome Not Healed -Ulcer Cleansing Rinsed/ Irrigated with Saline -Foul Odor after Cleansing No -Bioengineered Tissue No -Bleeding Controlled with Pressure -Offloading Yes -Type of Offloading Knee Walker -Treatment Response Procedure Tolerated Well -Debridement - Subq, 1st 20sq cm Yes [See Physician Procedure note for Specifics] Pain Scale: 0-10 Numeric [Pain] -Is Patient Pain Free? Yes - Nurse 3 - General Ulcer D/C NN Start: 08/14/20 10:36 Freq: Status: Active Protocol: Activity Type Activity Date Activity User E-Sign Co-Sign Detail Recorded Client Recorded Date Recorded By Document 08/14/20 11:17 [facility] [id number] 08/14/20 11:18 [facility] 08/14/20 11:17 Wound Care Nurse 3 [Wound Dressing] 7-right BKA -Ulcer Cleansing Rinsed/ Irrigated with Saline -Foul Odor after Cleansing No -Primary Dressing Applied C Hydrogel ($) -Primary Dressing Covered/Secured Dry Gauze, with Secured with Tape [Compression Applied] Right -Compression Wrap Javier Wrap [Post Procedure Tolerated] -Treatment Response Procedure Tolerated Well Pain Scale: 0-10 Numeric [Pain] -Is Patient Pain Free? Yes - Visit Discharge [Visit Discharge Information] -Discharge Condition Stable -Ambulatory Status Ambulatory, Walker -Transportation Private Auto -Accompanied by knee walker, gr kids in lobby Musculoskeletal: No Tenderness to Palpation of Joints or Extremities Neurological: Cranial nerves II-XII grossly intact Psych/Mental Status: Normal Affect, Appropriate Debridement Note Post-Debridement Measurements/Treatment - Nurse 2 - General Ulcer CM Notes Start: 08/14/20 10:36 Freq: Status: Active Protocol: Activity Type Activity Date Activity User E-Sign Co-Sign Detail Recorded Client Recorded Date Recorded By Document 08/14/20 11:06 [id number] 08/14/20 11:08 08/14/20 11:06 Wound Center Nurse 2 7-right BKA -Time 11:07 -Correct Patient Yes -Correct Side, Site, Position Yes -Correct Procedure Yes -Procedure Performed Yes -Type of Procedure Debridement -Clinical Debridement Subcutaneous -Tissue Removed Subcutaneous -Post Debridement (cm) - Length 0.5 -Post Debridement (cm) - Width 0.3 -Post Debridement (cm) - Depth 0.3 -Total Square (Post) (cm) 0.15 -Area of Debridement (cm) - Length 0.5 -Area of Debridement (cm) - Width 0.3 -Total Square (Area) (cm) 0.15 -Tunneling No -Undermining/Tunneling No -Circular Undermining No -Wound/Ulcer Outcome Not Healed -Ulcer Cleansing Rinsed/ Irrigated with Saline -Foul Odor after Cleansing No -Bioengineered Tissue No -Bleeding Controlled with Pressure -Offloading Yes -Type of Offloading Knee Walker -Treatment Response Procedure Tolerated Well -Debridement - Subq, 1st 20sq cm Yes Pain Scale: 0-10 Numeric Is Patient Pain Free? Yes - Nurse 3 - General Ulcer D/C NN Start: 08/14/20 10:36 Freq: Status: Active Protocol: Activity Type Activity Date Activity User E-Sign Co-Sign Detail Recorded Client Recorded Date Recorded By Document 08/14/20 11:17 [facility] [id number] 08/14/20 11:18 [facility] 08/14/20 11:17 Wound Care Nurse 3 7-right BKA -Ulcer Cleansing Rinsed/ Irrigated with Saline -Foul Odor after Cleansing No -Primary Dressing Applied C Hydrogel ($) -Primary Dressing Covered/Secured with Dry Gauze, Secured with Tape Right -Compression Wrap Javier Wrap Treatment Response Procedure Tolerated Well Pain Scale: 0-10 Numeric Is Patient Pain Free? Yes WC - Visit Discharge Discharge Condition Stable Ambulatory Status Ambulatory, Walker Transportation Private Auto Accompanied by knee walker, gr kids in lobby Wound debrided: BKA stump ulcer Laterality: Right Type of Debridement: Excisional debridement Anesthesia Used: 5% Lidocaine Gel Depth: Down to and including healthy tissue, in the subcutaneous layer Percentage of wound debrided: 100 Instrument Used: 3mm curette Tissue Removed: Subcutaneous tissue and slough Severity: Fat Layer Exposed Amount of bleeding with debridement: Mild Bleeding Controlled with: Pressure Patient tolerated procedure well Assessment/Plan Assessment: 1. Nonhealing ulcer right BKA stump, anterior. 2. Diabetes. 3. PVD. 4. History of osteomyelitis. 5. Smoker. Plan: Continue Collagen Hydrogel to the ulcer right BKA stump. No bone is exposed. Ulcer more shallow and smaller. She has completed the EpiCord and EpiFix skin substitute grafts. The Regranex has been approved to try and continue to stimulate healing. Awaiting shipment. Operative bone culture and tissue culture from 12/07/19 showed Staphylococcus aureus. She was placed on Doxycycline and has finished them. She had a recent wound culture on 07/11/20. It showed Anaerococcus prevoti and Anaerobic cocci. She was placed on Augmentin. Her HgA1c is 10.5 from 12/07/19 and Prealbumin was 14. Encouraged increase in protein intake to help with wound healing. Pain management is now managing her pain medications. Encouraged the patient to stop smoking as it may have deleterious effects on wound healing. Followup 2 weeks. [id number]: [id number] Annalisa subq tissue 20 sq cm/<
[2020-08-28 11:19] VITALS: BP 152/79; PULSE 100; TEMP 35.7; BMI 31.9
--- NOTE | 2020-08-28 13:25 | PN.PCM_ITS ---
(1) Ulcer of right leg Status: Chronic Qualifiers: Non-pressure ulcer stage: with fat layer exposed Qualified Code(s): L97.912 - Non-pressure chronic ulcer of unspecified part of right lower leg with fat layer exposed Code(s): L97.919 - Non-pressure chronic ulcer of unspecified part of right lower leg with unspecified severity (2) Diabetic ulcer of lower extremity Status: Chronic Code(s): E11.622 - Type 2 diabetes mellitus with other skin ulcer; L97.909 - Non-pressure chronic ulcer of unspecified part of unspecified lower leg with unspecified severity (3) Polyneuropathy due to type 2 diabetes mellitus Status: Chronic Code(s): E11.42 - Type 2 diabetes mellitus with diabetic polyneuropathy (4) 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 Status: Chronic Code(s): T87.89 - Other complications of amputation stump; M79.604 - Pain in right leg Comment: right BKA (5) Hx of right BKA Status: Chronic Code(s): Z89.511 - Acquired absence of right leg below knee Comment: 1. Surgical preparation anterior aspect right BKA stump with excisional debridement nonhealing painful ulcer. 2. Partial ostectomy tibia for osteomyelitis. 3. 3 cm complex secondary wound closure - 06/11/19 1. 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 2. Partial ostectomy tibia for osteomyelitis. 3. Complex secondary wound closure revision reconstruction - 12/28/18 (6) PVD (peripheral vascular disease) Status: Chronic Code(s): I73.9 - Peripheral vascular disease, unspecified Type of Wound Date of Service: 08/28/20 Chief Complaint: Nohealing infected diabetic ulcer anterior aspect right BKA stump. History of Wound: Surgery 12/07/19 - 1. Surgical preparation right BKA stump with incision and drainage and excisional debridement infected hematoma (19.25 cm2). 2. Partial ostectomy tibia for osteomyelitis. Wound care- Finished Epicord and Epifix. She has been approved for Regranex, which she started two weeks ago. Operative bone culture and tissue culture from 12/07/19 showed Staphylococcus aureus. She was treated with Doxycycline. Pathology was negative for osteomyelitis. Pathology from 06/26 was positive for osteomyelitis. Her HgA1c from 12/07/19 was 10.5. Prealbumin from 12/07/19 was 14. Another wound culture was obtained on 02/21/20. It showed Enterococcus f aecalis. She was started on Augmentin and has finished them. She santiago another wound culture on 07/11/20. It showed Anaerococcus prevoti and Anaerobic cocci. She was placed on Augmentin. She denies fever today and states her appetite is ok. Progress of Wound: Stable. - Physical Exam Vital Signs Temp Pulse Resp BP Pulse Ox 96.3 F L 100 18 152/79 H 99 08/28/20 11:19 08/28/20 11:19 08/14/20 10:36 08/28/20 11:19 08/08/20 00:17 General: Alert, Oriented x3 HEENT: Atraumatic Oral: Moist Mucosa Lungs: Normal air movement Cardiovascular: Regular rate Abdomen: Obese Extremities: Capillary Refill Less than 3 Seconds Skin: Ulcer/ Wound - Right BKA anterior ulcer that is painful to light palpation. Wound Measurements and Assessment WC - Nurse 1 - General Ulcer Measurement Start: 08/14/20 10:36 Freq: Status: Active Protocol: Activity Type Activity Date Activity User E-Sign Co-Sign Detail Recorded Client Recorded Date Recorded By Document 08/28/20 11:19 KRISHNA [id number] 08/28/20 11:23 KRISHNA 08/28/20 11:19 Wound Center Nurse 1 [Ulcer Assessment] 7-right BKA -Current Size (cm) - Length 0.1 -Current Size (cm) - Width 0.1 -Current Size (cm) - Depth 0.1 -Total Square Cm 0.01 -Wound Margin Distinct, Outline Attached -Granulation Amt None Present (0 %) -Necrosis Amt None Present (0 %) -Texture (Love-wound Skin Appearance) Assessed, Scarring -Moisture (Love-wound Skin Appearance Assessed, ) Maceration -Color (Love-wound Skin Appearance) No Abnormality, Assessed -Temperature (Love-wound Skin No Abnormality Appearance) (Pt Warm) -Tenderness on Palpation (Love-wound No Skin Appearance) -Ulcer Cleansing Rinsed/ Irrigated with Saline -Anesthetic Used 5% Lidocaine Gel WC - Nurse 2 - General Ulcer CM Notes Start: 08/14/20 10:36 Freq: Status: Active Protocol: Activity Type Activity Date Activity User E-Sign Co-Sign Detail Recorded Client Recorded Date Recorded By Document 08/28/20 11:49 [id number] 08/28/20 11:53 08/28/20 11:49 Wound Center Nurse 2 [Procedure/Treatment] -Time 11:51 -Correct Patient Yes -Correct Side, Site, Position Yes -Correct Procedure Yes -Procedure Performed Yes -Type of Procedure Debridement -Clinical Debridement Subcutaneous -Tissue Removed Subcutaneous -Post Debridement (cm) - Length 0.3 -Post Debridement (cm) - Width 0.2 -Post Debridement (cm) - Depth 0.2 -Total Square (Post) (cm) 0.06 -Area of Debridement (cm) - Length 0.3 -Area of Debridement (cm) - Width 0.2 -Total Square (Area) (cm) 0.06 -Tunneling No -Undermining/Tunneling No -Circular Undermining No -Wound/Ulcer Outcome Not Healed -Ulcer Cleansing Rinsed/ Irrigated with Saline -Foul Odor after Cleansing No -Bioengineered Tissue No -Bleeding Controlled with Pressure -Offloading No -Treatment Response Procedure Tolerated Well -Debridement - Subq, 1st 20sq cm Yes [See Physician Procedure note for Specifics] Pain Scale: 0-10 Numeric [Pain] -Is Patient Pain Free? Yes - Nurse 3 - General Ulcer D/C NN Start: 08/14/20 10:36 Freq: Status: Active Protocol: Activity Type Activity Date Activity User E-Sign Co-Sign Detail Recorded Client Recorded Date Recorded By Document 08/28/20 11:54 JF [id number] 08/28/20 11:55 08/28/20 11:54 Wound Care Nurse 3 [Wound Dressing] 7-right BKA -Ulcer Cleansing Rinsed/ Irrigated with Saline -Foul Odor after Cleansing No -Primary Dressing Applied C Hydrogel ($) -Primary Dressing Covered/Secured Dry Gauze, with Secured with Tape Pain Scale: 0-10 Numeric [Pain] -Is Patient Pain Free? Yes - Visit Discharge [Visit Discharge Information] -Discharge Condition Stable -Ambulatory Status Walker -Transportation Private Auto -Medication Reconcilliation completed Yes & provided to patient/care provider -Clinical Summary of Care Provided Yes Musculoskeletal: Tenderness - Right BKA stump. Neurological: Cranial nerves II-XII grossly intact Psych/Mental Status: Normal Affect, Appropriate Debridement Note Post-Debridement Measurements/Treatment - Nurse 2 - General Ulcer CM Notes Start: 08/14/20 10:36 Freq: Status: Active Protocol: Activity Type Activity Date Activity User E-Sign Co-Sign Detail Recorded Client Recorded Date Recorded By Document 08/14/20 11:06 [id number] 08/14/20 11:08 Document 08/28/20 11:49 [id number] 08/28/20 11:53 08/14/20 08/28/20 11:06 11:49 Wound Center Nurse 2 7-right BKA -Time 11:07 11:51 -Correct Patient Yes Yes -Correct Side, Site, Position Yes Yes -Correct Procedure Yes Yes -Procedure Performed Yes Yes -Type of Procedure Debridement Debridement -Clinical Debridement Subcutaneous Subcutaneous -Tissue Removed Subcutaneous Subcutaneous -Post Debridement (cm) - Length 0.5 0.3 -Post Debridement (cm) - Width 0.3 0.2 -Post Debridement (cm) - Depth 0.3 0.2 -Total Square (Post) (cm) 0.15 0.06 -Area of Debridement (cm) - Length 0.5 0.3 -Area of Debridement (cm) - Width 0.3 0.2 -Total Square (Area) (cm) 0.15 0.06 -Tunneling No No -Undermining/Tunneling No No -Circular Undermining No No -Wound/Ulcer Outcome Not Healed Not Healed -Ulcer Cleansing Rinsed/ Rinsed/ Irrigated with Irrigated with Saline Saline -Foul Odor after Cleansing No No -Bioengineered Tissue No No -Bleeding Controlled with Pressure Pressure -Offloading Yes No -Type of Offloading Knee Walker -Treatment Response Procedure Procedure Tolerated Well Tolerated Well -Debridement - Subq, 1st 20sq cm Yes Yes Pain Scale: 0-10 Numeric Is Patient Pain Free? Yes Yes WC - Nurse 3 - General Ulcer D/C NN Start: 08/14/20 10:36 Freq: Status: Active Protocol: Activity Type Activity Date Activity User E-Sign Co-Sign Detail Recorded Client Recorded Date Recorded By Document 08/14/20 11:17 [facility] [id number] 08/14/20 11:18 [facility] Document 08/28/20 11:54 [id number] 08/28/20 11:55 08/14/20 08/28/20 11:17 11:54 Wound Care Nurse 3 7-right BKA -Ulcer Cleansing Rinsed/ Rinsed/ Irrigated with Irrigated with Saline Saline -Foul Odor after Cleansing No No -Primary Dressing Applied C Hydrogel ($) C Hydrogel ($) -Primary Dressing Covered/Secured with Dry Gauze, Dry Gauze, Secured with Secured with Tape Tape Right -Compression Wrap Javier Wrap Treatment Response Procedure Tolerated Well Pain Scale: 0-10 Numeric Is Patient Pain Free? Yes Yes WC - Visit Discharge Discharge Condition Stable Stable Ambulatory Status Ambulatory, Walker Walker Transportation Private Auto Private Auto Accompanied by knee walkerally [facility] in [facility] Medication Reconcilliation completed & Yes provided to patient/care provider Clinical Summary of Care Provided Yes Wound debrided: BKA stump ulcer Laterality: Right Type of Debridement: Excisional debridement Anesthesia Used: 5% Lidocaine Gel Depth: Down to and including healthy tissue, in the subcutaneous layer Percentage of wound debrided: 100 Instrument Used: - - 1 mm curette Tissue Removed: Subcutaneous tissue and slough Severity: Fat Layer Exposed Amount of bleeding with debridement: Mild Bleeding Controlled with: Pressure Patient tolerated procedure well Assessment/Plan Active Problems (Last Reviewed 05/24/20 @ 16:42 by Priscila Lopez) Ulcer of right leg (Chronic) Polyneuropathy due to type 2 diabetes mellitus (Chronic) Diabetic ulcer of lower extremity (Chronic) 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 (Chronic) right BKA Hx of right BKA (Chronic) 1. Surgical preparation anterior aspect right BKA stump with excisional debridement nonhealing painful ulcer. 2. Partial ostectomy tibia for osteomyelitis. 3. 3 cm complex secondary wound closure - 06/11/19 1. 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 2. Partial ostectomy tibia for osteomyelitis. 3. Complex secondary wound closure revision reconstruction - 12/28/18 PVD (peripheral vascular disease) (Chronic) Assessment: 1. Nonhealing ulcer right BKA stump, anterior. 2. Diabetes. 3. PVD. 4. History of osteomyelitis. 5. Smoker. Plan: Continue Regranex to the ulcer right BKA stump. No bone is exposed. Ulcer more shallow and smaller in diameter. She has completed the EpiCord and EpiFix skin substitute grafts. The Regranex has been approved to try and continue to stimulate healing. Awaiting shipment. Operative bone culture and tissue culture from 12/07/19 showed Staphylococcus aureus. She was placed on Doxycycline and has finished them. She had a recent wound culture on 07/11/20. It showed Anaerococcus prevoti and Anaerobic cocci. She was placed on Augmentin. Her HgA1c is 10.5 from 12/07/19 and Prealbumin was 14. Encouraged increase in protein intake to help with wound healing. Pain management is now managing her pain medications. Encouraged the patient to stop smoking as it may have deleterious effects on wound healing. Followup 2 weeks. [id number]: [id number] Annalisa subq tissue 20 sq cm/<
== END 2020-09-07 23:59 ==
LOC: WC 11:15
PROVIDERS: Family Provider Internal Medicine; PCP Internal Medicine; Visit Provider Surgery
DX: E11.622 Type 2 diabetes mellitus with other skin ulcer (principal); E11.42 Type 2 diabetes mellitus with diabetic polyneuropathy; L97.812 Non-pressure chronic ulcer of other part of right lower leg with fat layer exposed; Z89.511 Acquired absence of right leg below knee; E11.51 Type 2 diabetes mellitus with diabetic peripheral angiopathy without gangrene; T87.89 Other complications of amputation stump; M79.604 Pain in right leg; Y83.5 Amputation of limb(s) as the cause of abnormal reaction of the patient, or of later complication, without mention of misadventure at the time of the procedure
CPT/HCPCS: 11042

== ENCOUNTER 2020-10-02 09:45 | Outpatient (RCR) | payer MEDICARE, MEDICAID, SELFPAY ==
[2020-09-08 00:16] VITALS: BP 152/79; PULSE 100; RESP 18; TEMP 35.7; O2SAT 99
[2020-09-11 11:20] VITALS: BP 119/80; PULSE 102; RESP 16; TEMP 36; BMI 31.9
--- NOTE | 2020-09-11 11:48 | PCM.WC.PN ---
(1) Diabetic ulcer of lower extremity Status: Chronic Code(s): E11.622 - Type 2 diabetes mellitus with other skin ulcer; L97.909 - Non-pressure chronic ulcer of unspecified part of unspecified lower leg with unspecified severity (2) 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 Status: Chronic Code(s): T87.89 - Other complications of amputation stump; M79.604 - Pain in right leg Comment: right BKA (3) History of osteomyelitis Status: Chronic Code(s): Z87.39 - Personal history of other diseases of the musculoskeletal system and connective tissue (4) Tobacco abuse Status: Chronic Code(s): Z72.0 - Tobacco use (5) Hx of right BKA Status: Chronic Code(s): Z89.511 - Acquired absence of right leg below knee Comment: 1. Surgical preparation anterior aspect right BKA stump with excisional debridement nonhealing painful ulcer. 2. Partial ostectomy tibia for osteomyelitis. 3. 3 cm complex secondary wound closure - 06/11/19 1. 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 2. Partial ostectomy tibia for osteomyelitis. 3. Complex secondary wound closure revision reconstruction - 12/28/18 Type of Wound Date of Service: 09/11/20 Chief Complaint: Nohealing infected diabetic ulcer anterior aspect right BKA stump. History of Wound: Surgery 12/07/19 - 1. Surgical preparation right BKA stump with incision and drainage and excisional debridement infected hematoma (19.25 cm2). 2. Partial ostectomy tibia for osteomyelitis. Wound care- Finished Epicord and Epifix. She has been approved for Regranex, which she started. She is complaining of increased pain at the ulcer site and states that she had drainage that she thought looked infected. Wound cultures obtained today 09/11/20. Depending on the results of the wound cultures, it may necessitate treatment with antibiotics. Operative bone culture and tissue culture from 12/07/19 showed Staphylococcus aureus. She was treated with Doxycycline. Pathology was negative for osteomyelitis. Pathology from 06/26 was positive for osteomyelitis. Her HgA1c from 12/07/19 was 10.5. Prealbumin from 12/07/19 was 14. Another wound culture was obtained on 02/21/20. It showed Enterococcus faecalis. She was started on Augmentin and has finished them. She santiago another wound culture on 07/11/20. It showed Anaerococcus prevoti and Anaerobic cocci. She was placed on Augmentin. She denies fever today and states her appetite is ok. Progress of Wound: Stable. - Physical Exam Vital Signs Temp Pulse Resp BP Pulse Ox 96.8 F L 102 H 16 119/80 99 09/11/20 11:20 09/11/20 11:20 09/11/20 11:20 09/11/20 11:20 09/08/20 00:16 General: Alert, Oriented x3, Cooperative HEENT: Atraumatic Oral: Moist Mucosa Lungs: Normal air movement Cardiovascular: Regular rate Abdomen: Obese Extremities: Capillary Refill Less than 3 Seconds Skin: Ulcer/ Wound - Right BKA stump ulcer. There is white/yellow thick drainage. Wound culture obtained. The ulcer is extremely sensitive to palpation. Wound Measurements and Assessment WC - Nurse 1 - General Ulcer Measurement Start: 09/11/20 11:20 Freq: Status: Active Protocol: Activity Type Activity Date Activity User E-Sign Co-Sign Detail Recorded Client Recorded Date Recorded By Document 09/11/20 11:20 [facility] [id number] 09/11/20 11:25 [facility] 09/11/20 11:20 Wound Center Nurse 1 [Ulcer Assessment] 7-right BKA -Combined with other wound No -Current Size (cm) - Length 0.1 -Current Size (cm) - Width 0.1 -Current Size (cm) - Depth 0.1 -Total Square Cm 0.01 -Photo Taken No -Epithelialization None Present -Tunneling No -Undermining/Tunneling No -Circular Undermining No -Exudate Amt Small -Exudate Type Serous -Wound Margin Distinct, Outline Attached -Granulation Amt None Present (0 %) -Slough/Fibrin Yes -Necrosis Amt Large (67-100%) -Necrotic Tissue Type Adherent Slough -Texture (Love-wound Skin Appearance) Assessed, Scarring -Moisture (Love-wound Skin Appearance Assessed ) -Color (Love-wound Skin Appearance) Assessed -Temperature (Love-wound Skin No Abnormality Appearance) (Pt Warm) -Tenderness on Palpation (Love-wound No Skin Appearance) -Ulcer Cleansing Rinsed/ Irrigated with Saline -Foul Odor after Cleansing No -Anesthetic Used 5% Lidocaine Gel WC - Nurse 3 - General Ulcer D/C NN Start: 09/11/20 11:20 Freq: Status: Active Protocol: Activity Type Activity Date Activity User E-Sign Co-Sign Detail Recorded Client Recorded Date Recorded By Document 09/11/20 11:40 KR [id number] 09/11/20 11:40 KR 09/11/20 11:40 Wound Care Nurse 3 [Wound Dressing] -Ulcer Cleansing Rinsed/ Irrigated with Saline -Primary Dressing Covered/Secured Dry Gauze, with Secured with Tape Pain Scale: 0-10 Numeric [Pain] -Is Patient Pain Free? Yes WC - Visit Discharge [Visit Discharge Information] -Discharge Condition Stable -Ambulatory Status Steady -Transportation Private Auto Musculoskeletal: Tenderness Neurological: Cranial nerves II-XII grossly intact Psych/Mental Status: Normal Affect, Appropriate Debridement Note Post-Debridement Measurements/Treatment WC - Nurse 3 - General Ulcer D/C NN Start: 09/11/20 11:20 Freq: Status: Active Protocol: Activity Type Activity Date Activity User E-Sign Co-Sign Detail Recorded Client Recorded Date Recorded By Document 09/11/20 11:40 KR [id number] 09/11/20 11:40 KR 09/11/20 11:40 Wound Care Nurse 3 7-right BKA -Ulcer Cleansing Rinsed/ Irrigated with Saline -Primary Dressing Covered/Secured with Dry Gauze, Secured with Tape Pain Scale: 0-10 Numeric Is Patient Pain Free? Yes - Visit Discharge Discharge Condition Stable Ambulatory Status Steady Transportation Private Auto Wound debrided: BKA stump ulcer Laterality: Right Type of Debridement: Excisional debridement Anesthesia Used: 5% Lidocaine Gel Depth: Down to and including healthy tissue, in the subcutaneous layer Percentage of wound debrided: 100 Instrument Used: 3mm curette Tissue Removed: Subcutaneous tissue and slough Severity: Fat Layer Exposed Amount of bleeding with debridement: Mild Bleeding Controlled with: Pressure Patient tolerated procedure well Assessment/Plan Assessment: 1. Nonhealing ulcer right BKA stump, anterior. 2. Diabetes. 3. PVD. 4. History of osteomyelitis. 5. Smoker. Plan: Continue Regranex to the ulcer right BKA stump. No bone is exposed. Ulcer more shallow and smaller in diameter. She has completed the EpiCord and EpiFix skin substitute grafts. She has been approved for Regranex, which she has started. She is complaining of increased pain at the ulcer site and states that she had drainage that she thought looked infected. Wound cultures obtained today 09/11/20. Depending on the results of the wound cultures, it may necessitate treatment with antibiotics. Operative bone culture and tissue culture from 12/07/19 showed Staphylococcus aureus. She was placed on Doxycycline and has finished them. She had a recent wound culture on 07/11/20. It showed Anaerococcus prevoti and Anaerobic cocci. She was placed on Augmentin. Her HgA1c is 10.5 from 12/07/19 and Prealbumin was 14. Encouraged increase in protein intake to help with wound healing. Pain management is now managing her pain medications. Encouraged the patient to stop smoking as it may have deleterious effects on wound healing. Followup 2 weeks. [id number]: [id number] Annalisa subq tissue 20 sq cm/<
[2020-10-02 10:04] VITALS: BP 122/67; PULSE 96; TEMP 36.1; BMI 31.9
--- NOTE | 2020-10-02 10:45 | PCM.WC.PN ---
(1) Diabetic ulcer of lower extremity Status: Chronic Code(s): E11.622 - Type 2 diabetes mellitus with other skin ulcer; L97.909 - Non-pressure chronic ulcer of unspecified part of unspecified lower leg with unspecified severity (2) 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 Status: Chronic Code(s): T87.89 - Other complications of amputation stump; M79.604 - Pain in right leg Comment: right BKA (3) History of osteomyelitis Status: Chronic Code(s): Z87.39 - Personal history of other diseases of the musculoskeletal system and connective tissue (4) Tobacco abuse Status: Chronic Code(s): Z72.0 - Tobacco use (5) Hx of right BKA Status: Chronic Code(s): Z89.511 - Acquired absence of right leg below knee Comment: 1. Surgical preparation anterior aspect right BKA stump with excisional debridement nonhealing painful ulcer. 2. Partial ostectomy tibia for osteomyelitis. 3. 3 cm complex secondary wound closure - 06/11/19 1. 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 2. Partial ostectomy tibia for osteomyelitis. 3. Complex secondary wound closure revision reconstruction - 12/28/18 Type of Wound Date of Service: 10/02/20 Chief Complaint: Nohealing infected diabetic ulcer anterior aspect right BKA stump. History of Wound: Surgery 12/07/19 - 1. Surgical preparation right BKA stump with incision and drainage and excisional debridement infected hematoma (19.25 cm2). 2. Partial ostectomy tibia for osteomyelitis. Wound care- Finished Epicord and Epifix. She has been using Regranex daily. She is complaining of increased pain at the ulcer site and states that she had drainage that she thought looked infected. Wound cultures obtained on 09/11/20 and were positive for Entercoccus faecalis and Anaerobic cocci. She has been taking Augmentin and a probiotic. Operative bone culture and tissue culture from 12/07/19 showed Staphylococcus aureus. She was treated with Doxycycline. Pathology was negative for osteomyelitis. Pathology from 06/26 was positive for osteomyelitis. Her HgA1c from 12/07/19 was 10.5. Prealbumin from 12/07/19 was 14. Another wound culture was obtained on 02/21/20. It showed Enterococcus faecalis. She was started on Augmentin and has finished them. She santiago another wound culture on 07/11/20. It showed Anaerococcus prevoti and Anaerobic cocci. She was placed on Augmentin. She denies fever today and states her appetite is ok. Progress of Wound: She is having increased pain, even while on antibiotics. No improvement in the ulcer. - Physical Exam Vital Signs Temp Pulse Resp BP Pulse Ox 97.0 F L 96 16 122/67 H 99 10/02/20 10:04 10/02/20 10:04 09/11/20 11:20 10/02/20 10:04 09/08/20 00:16 General: Alert, Oriented x3 HEENT: Atraumatic Lungs: Normal air movement Cardiovascular: Regular rate Abdomen: Obese Extremities: Capillary Refill Less than 3 Seconds, Tenderness Skin: Ulcer/ Wound - Right BKA ulcer with no improvement in ulcer. She is having a lot of pain even with light palpation. No redness noted. Wound Measurements and Assessment WC - Nurse 1 - General Ulcer Measurement Start: 09/11/20 11:20 Freq: Status: Active Protocol: Activity Type Activity Date Activity User E-Sign Co-Sign Detail Recorded Client Recorded Date Recorded By Document 10/02/20 10:04 KRISHNA [id number] 10/02/20 10:07 KRISHNA 10/02/20 10:04 Wound Center Nurse 1 [Ulcer Assessment] 7-right BKA -Current Size (cm) - Length 0.5 -Current Size (cm) - Width 0.3 -Current Size (cm) - Depth 0.3 -Total Square Cm 0.15 -Exudate Amt Small -Exudate Type Serosanguineous -Wound Margin Distinct, Outline Attached -Granulation Amt Small (1-33%) -Granulation Quality Red -Necrosis Amt Small (1-33%) -Necrotic Tissue Type Adherent Slough -Texture (Love-wound Skin Appearance) Assessed, Scarring -Moisture (Love-wound Skin Appearance No Abnormality, ) Assessed -Color (Love-wound Skin Appearance) No Abnormality, Assessed -Temperature (Love-wound Skin No Abnormality Appearance) (Pt Warm) -Tenderness on Palpation (Love-wound No Skin Appearance) -Ulcer Cleansing Rinsed/ Irrigated with Saline -Foul Odor after Cleansing No -Anesthetic Used 4% Lidocaine Solution WC - Nurse 2 - General Ulcer CM Notes Start: 09/11/20 11:20 Freq: Status: Active Protocol: Activity Type Activity Date Activity User E-Sign Co-Sign Detail Recorded Client Recorded Date Recorded By Document 10/02/20 10:17 [id number] 10/02/20 10:22 JF Document 10/02/20 10:23 JF [id number] 10/02/20 10:24 JF 10/02/20 10/02/20 10:17 10:23 Wound Center Nurse 2 [Procedure/Treatment] 7-right BKA -Time 10:17 10:23 -Correct Patient Yes Yes -Correct Side, Site, Position Yes Yes -Correct Procedure Yes Yes -Procedure Performed Yes Yes -Type of Procedure Debridement Debridement -Clinical Debridement Subcutaneous Subcutaneous -Tissue Removed Subcutaneous Subcutaneous -Post Debridement (cm) - Length 0.4 0.4 -Post Debridement (cm) - Width 0.3 0.3 -Post Debridement (cm) - Depth 0.2 0.2 -Total Square (Post) (cm) 0.12 0.12 -Area of Debridement (cm) - Length 0.4 0.4 -Area of Debridement (cm) - Width 0.3 0.3 -Total Square (Area) (cm) 0.12 0.12 -Tunneling No No -Undermining/Tunneling No No -Circular Undermining No No -Wound/Ulcer Outcome Not Healed Not Healed -Ulcer Cleansing Rinsed/ Rinsed/ Irrigated with Irrigated with Saline Saline -Foul Odor after Cleansing No No -Bioengineered Tissue No No -Bleeding Controlled with Pressure Pressure -Offloading Yes Yes -Type of Offloading Knee Walker Knee Walker -Treatment Response Procedure Not Procedure Tolerated Well Tolerated Well -Debridement - Subq, 1st 20sq cm Yes Yes [See Physician Procedure note for Specifics] Pain Scale: 0-10 Numeric [Pain] -Is Patient Pain Free? Yes WC - Nurse 3 - General Ulcer D/C NN Start: 09/11/20 11:20 Freq: Status: Active Protocol: Activity Type Activity Date Activity User E-Sign Co-Sign Detail Recorded Client Recorded Date Recorded By Document 10/02/20 10:31 DL [id number] 10/02/20 10:32 DL 10/02/20 10:31 Wound Care Nurse 3 [Wound Dressing] 7-right BKA -Ulcer Cleansing Rinsed/ Irrigated with Saline -Foul Odor after Cleansing No -Other Dressing Hydrogel today -Primary Dressing Covered/Secured Dry Gauze & with Roll Gauze, Secured with Tape [Post Procedure Tolerated] -Treatment Response Procedure Tolerated Well Pain Scale: 0-10 Numeric [Pain] -Is Patient Pain Free? Yes WC - Visit Discharge [Visit Discharge Information] -Discharge Condition Stable -Ambulatory Status Ambulatory, Walker -Transportation Private Auto -Notes: Pt to resume Regranex at home. Musculoskeletal: Tenderness - Right BKA stump Lymphatic: No Cervical, Supraclavicular, or Inguinal Adenopathy Neurological: Cranial nerves II-XII grossly intact Psych/Mental Status: Normal Affect, Appropriate Debridement Note Post-Debridement Measurements/Treatment WC - Nurse 2 - General Ulcer CM Notes Start: 09/11/20 11:20 Freq: Status: Active Protocol: Activity Type Activity Date Activity User E-Sign Co-Sign Detail Recorded Client Recorded Date Recorded By Document 09/11/20 12:19 DEYANIRA [id number] 09/11/20 12:20 PL Document 10/02/20 10:17 SHAYNA [id number] 10/02/20 10:22 Document 10/02/20 10:23 [id number] 10/02/20 10:24 09/11/20 10/02/20 10/02/20 12:19 10:17 10:23 Wound Center Nurse 2 7-right BKA -Time 11:30 10:17 10:23 -Correct Patient Yes Yes Yes -Correct Side, Site, Position Yes Yes Yes -Correct Procedure Yes Yes Yes -Procedure Performed Yes Yes Yes -Type of Procedure Debridement Debridement Debridement -Clinical Debridement Subcutaneous Subcutaneous Subcutaneous -Tissue Removed Subcutaneous Subcutaneous Subcutaneous -Post Debridement (cm) - Length 0.3 0.4 0.4 -Post Debridement (cm) - Width 0.3 0.3 0.3 -Post Debridement (cm) - Depth 0.3 0.2 0.2 -Total Square (Post) (cm) 0.09 0.12 0.12 -Area of Debridement (cm) - Length 0.3 0.4 0.4 -Area of Debridement (cm) - Width 0.3 0.3 0.3 -Total Square (Area) (cm) 0.09 0.12 0.12 -Tunneling No No No -Undermining/Tunneling No No No -Circular Undermining No No No -Wound/Ulcer Outcome Not Healed Not Healed Not Healed -Ulcer Cleansing Rinsed/ Rinsed/ Rinsed/ Irrigated with Irrigated with Irrigated with Saline Saline Saline -Foul Odor after Cleansing No No No -Bioengineered Tissue No No No -Bleeding Controlled with Pressure Pressure -Offloading Yes Yes -Type of Offloading Knee Walker Knee Walker -Treatment Response Procedure Not Procedure Tolerated Well Tolerated Well -Debridement - Subq, 1st 20sq cm Yes Yes Yes Pain Scale: 0-10 Numeric Is Patient Pain Free? Yes Yes - Nurse 3 - General Ulcer D/C NN Start: 09/11/20 11:20 Freq: Status: Active Protocol: Activity Type Activity Date Activity User E-Sign Co-Sign Detail Recorded Client Recorded Date Recorded By Document 09/11/20 11:40 KR [id number] 09/11/20 11:40 KR Document 10/02/20 10:31 DL [id number] 10/02/20 10:32 DL 09/11/20 10/02/20 11:40 10:31 Wound Care Nurse 3 7-right BKA -Ulcer Cleansing Rinsed/ Rinsed/ Irrigated with Irrigated with Saline Saline -Foul Odor after Cleansing No -Other Dressing Hydrogel today -Primary Dressing Covered/Secured with Dry Gauze, Dry Gauze & Secured with Roll Gauze, Tape Secured with Tape Treatment Response Procedure Tolerated Well Pain Scale: 0-10 Numeric Is Patient Pain Free? Yes Yes - Visit Discharge Discharge Condition Stable Stable Ambulatory Status Steady Ambulatory, Walker Transportation Private Auto Private Auto Notes: Pt to resume Regranex at home. Wound debrided: BKA stump, anterior leg Laterality: Right Type of Debridement: Excisional debridement Anesthesia Used: 5% Lidocaine Gel Depth: Down to and including healthy tissue, in the subcutaneous layer, to bone Percentage of wound debrided: 100 Instrument Used: 3mm curette Tissue Removed: Subcutaneous tissue and slough Severity: Fat Layer Exposed Amount of bleeding with debridement: Mild Bleeding Controlled with: Pressure Patient did not tolerate procedure well - Patient is not doing well with the debridements due to the amount of pain she is experiencing. Assessment/Plan Active Problems (Last Reviewed 05/24/20 @ 16:42 by Priscila Lopez) Diabetic ulcer of lower extremity (Chronic) History of osteomyelitis (Chronic) 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 (Chronic) right BKA Tobacco abuse (Chronic) Hx of right BKA (Chronic) 1. Surgical preparation anterior aspect right BKA stump with excisional debridement nonhealing painful ulcer. 2. Partial ostectomy tibia for osteomyelitis. 3. 3 cm complex secondary wound closure - 06/11/19 1. 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 2. Partial ostectomy tibia for osteomyelitis. 3. Complex secondary wound closure revision reconstruction - 12/28/18 Assessment: 1. Nonhealing ulcer right BKA stump, anterior. 2. Diabetes. 3. PVD. 4. History of osteomyelitis. 5. Smoker. Plan: Continue Regranex to the ulcer right BKA stump. Able to palpate bone today. She has completed the EpiCord and EpiFix skin substitute grafts. She has been using Regranex daily. She is complaining of increased pain at the ulcer site and states that she had drainage that she thought looked infected. Wound culture from 09/11/20 positive for Enterococcus faecalis and Anaerobic cocci, she is on Augmentin. Will order an MRI to further evaluate her right BKA stump. Her last MRI was 11/2018. She has a history of chronic osteomyelitis. Her HgA1c is 10.5 from 12/07/19 and Prealbumin was 14. Encouraged increase in protein intake to help with wound healing. Pain management is now managing her pain medications. Encouraged the patient to stop smoking as it may have deleterious effects on wound healing. Followup [address] Guadarrama is at the wound center to discuss further options. [id number]: [id number] Annalisa subq tissue 20 sq cm/<
== END 2020-10-08 23:59 ==
LOC: WC 09:45
PROVIDERS: Family Provider Internal Medicine; PCP Internal Medicine; Visit Provider Surgery
DX: E11.622 Type 2 diabetes mellitus with other skin ulcer (principal); E11.42 Type 2 diabetes mellitus with diabetic polyneuropathy; T87.89 Other complications of amputation stump; Z72.0 Tobacco use; L97.812 Non-pressure chronic ulcer of other part of right lower leg with fat layer exposed; E11.51 Type 2 diabetes mellitus with diabetic peripheral angiopathy without gangrene
CPT/HCPCS: 11042; 87070; 87075; 87077; 87186; 87205

== ENCOUNTER 2020-10-23 10:00 | Outpatient (RCR) | payer MEDICARE, MEDICAID, SELFPAY ==
[2020-10-09 00:17] VITALS: BP 122/67; PULSE 96; RESP 16; TEMP 36.1; O2SAT 99
--- NOTE | 2020-10-13 17:30 | MRI_ITS ---
Small non healing wound, distal RIGHT BKA EXAMINATION: MR Tibia/Fibula W/O Contrast TECHNIQUE: Multiplanar and multisequence MR images were performed of the right tibia and fibula. IV Contrast dosage and agent: None COMPARISON: Prior MRI on December 01, [address] examination on December 07, 2019 FINDINGS: Evaluation is limited without intravenous contrast. JOINTS: Small knee joint effusion. MUSCLES: Atrophy is seen within the anterior and posterior musculature of the lower leg most marked in the anterior compartment slightly progressive when compared to prior study. BONE: Below the knee amputation. Subtle area of edema is seen within the anterior tibial stump seen best on axial images 25 through 29 series 7. This demonstrates decreased signal on T1-weighted images. OTHER SOFT TISSUES: The soft tissue at the anterior inferior aspect of the stump is thinned and overlies the area of abnormal signal within the distal anterior tibial stump. There is also minimal edema seen within the overlying tissue. MRI/Lower Ext/No Jt/w/o IMPRESSION: Subtle area of abnormal signal within the distal tibial stump anteriorly with overlying soft tissue thinning and edema. This may represent early osteomyelitis. I do not see a definite abscess. It may be of benefit to repeat the study with intravenous contrast for further evaluation if clinically indicated at [id number] Reported and signed by: Chante Enciso DO Electronically Signed: Chante Enciso DO at 6:51 EST Tel , Service support ,
[2020-10-23 10:23] VITALS: BP 126/75; PULSE 102; RESP 16; TEMP 36.1; BMI 31.9
--- NOTE | 2020-10-23 23:11 | PN.PCM_ITS ---
Type of Wound Date of Service: 10/23/20 Chief Complaint: Nohealing infected diabetic ulcer anterior aspect right BKA stump. History of Wound: Surgery 12/07/19 - 1. Surgical preparation right BKA stump with incision and drainage and excisional debridement infected hematoma (19.25 cm2). 2. Partial ostectomy tibia for osteomyelitis. Wound care- Finished Epicord and Epifix. She has been using Regranex daily. She is complaining of increased pain at the ulcer site and states that she had drainage that she thought looked infected. Wound cultures obtained on 09/11/20 and were positive for Entercoccus faecalis and Anaerobic cocci. She has been taking Augmentin and a probiotic. Operative bone culture and tissue culture from 12/07/19 showed Staphylococcus aureus. She was treated with Doxycycline. Pathology was negative for osteomyelitis. Pathology from 06/26 was positive for osteomyelit is. Her HgA1c from 12/07/19 was 10.5. Prealbumin from 12/07/19 was 14. Another wound culture was obtained on 02/21/20. It showed Enterococcus faecalis. She was started on Augmentin and has finished them. She santiago another wound culture on 07/11/20. It showed Anaerococcus prevoti and Anaerobic cocci. She was placed on Augmentin and has finished them. An MRI was done on 10/13/20. It showed subtle area of abnormal signal within the distal tibial stump anteriorly. with overlying soft tissue thinning and edema. This may represent early. osteomyelitis. I do not see a definite abscess. It may be of benefit to. repeat the study with intravenous contrast for further evaluation if. clinically indicated.. She denies fever today and states her appetite is ok. Progress of Wound: No improvement in the ulcer. - Physical Exam Vital Signs Temp Pulse Resp BP Pulse Ox 96.9 F L 102 H 16 126/75 H 99 10/23/20 10:23 10/23/20 10:23 10/23/20 10:10/23/20 10:23 10/09/20 00:17 General: Alert, Oriented x3 HEENT: PERRLA, EOMI Oral: Moist Mucosa Neck: Supple Lungs: Clear to auscultation Cardiovascular: Regular rate, Regular Rhythm Abdomen: Soft, Non-Distended Skin: Ulcer/ Wound - has persistent nonhealing ulcer right BKA stump, anterior. Wound Measurements and Assessment WC - Nurse 1 - General Ulcer Measurement Start: 10/23/20 10:23 Freq: Status: Active Protocol: Activity Type Activity Date Activity User E-Sign Co-Sign Detail Recorded Client Recorded Date Recorded By Document 10/23/20 10:23 MS [id number] 10/23/20 10:25 MS 10/23/20 10:23 Wound Center Nurse 1 [Ulcer Assessment] 7-right BKA -Current Size (cm) - Length 0.1 -Current Size (cm) - Width 0.1 -Current Size (cm) - Depth 0.1 -Total Square Cm 0.01 -Exudate Amt None Present -Granulation Amt None Present (0 %) -Anesthetic Used 4% Lidocaine Solution - Nurse 2 - General Ulcer CM Notes Start: 10/23/20 10:23 Freq: Status: Active Protocol: Activity Type Activity Date Activity User E-Sign Co-Sign Detail Recorded Client Recorded Date Recorded By Document 10/23/20 10:52 [id number] 10/23/20 10:54 10/23/20 10:52 Wound Center Nurse 2 [Procedure/Treatment] -Time 10:54 -Correct Patient No -Correct Side, Site, Position No -Correct Procedure No -Procedure Performed No -Tunneling No -Undermining/Tunneling No -Circular Undermining No -Wound/Ulcer Outcome Not Healed -Debridement - Subq, 1st 20sq cm No [See Physician Procedure note for Specifics] - Nurse 3 - General Ulcer D/C NN Start: 10/23/20 10:23 Freq: Status: Active Protocol: Activity Type Activity Date Activity User E-Sign Co-Sign Detail Recorded Client Recorded Date Recorded By Document 10/23/20 11:01 [facility] [id number] 10/23/20 11:01 [facility] 10/23/20 11:01 Wound Care Nurse 3 [Wound Dressing] 7-right BKA -Ulcer Cleansing Rinsed/ Irrigated with Saline -Foul Odor after Cleansing No -Primary Dressing Applied Other -Other Dressing hydrogel -Primary Dressing Covered/Secured Dry Gauze, with Secured with Tape [Post Procedure Tolerated] -Treatment Response Procedure Tolerated Well Pain Scale: 0-10 Numeric [Pain] -Is Patient Pain Free? Yes - Visit Discharge [Visit Discharge Information] -Discharge Condition Stable -Ambulatory Status Ambulatory, Walker -Transportation Private Auto -Notes: knee walker Lymphatic: No Cervical, Supraclavicular, or Inguinal Adenopathy Neurological: Cranial nerves II-XII grossly intact Psych/Mental Status: Normal Affect, Appropriate Debridement Note Post-Debridement Measurements/Treatment WC - Nurse 2 - General Ulcer CM Notes Start: 10/23/20 10:23 Freq: Status: Active Protocol: Activity Type Activity Date Activity User E-Sign Co-Sign Detail Recorded Client Recorded Date Recorded By Document 10/23/20 10:52 [id number] 10/23/20 10:54 10/23/20 10:52 Wound Center Nurse 2 7-right BKA -Time 10:54 -Correct Patient No -Correct Side, Site, Position No -Correct Procedure No -Procedure Performed No -Tunneling No -Undermining/Tunneling No -Circular Undermining No -Wound/Ulcer Outcome Not Healed -Debridement - Subq, 1st 20sq cm No WC - Nurse 3 - General Ulcer D/C NN Start: 10/23/20 10:23 Freq: Status: Active Protocol: Activity Type Activity Date Activity User E-Sign Co-Sign Detail Recorded Client Recorded Date Recorded By Document 10/23/20 11:01 [facility] [id number] 10/23/20 11:01 [facility] 10/23/20 11:01 Wound Care Nurse 3 -Ulcer Cleansing Rinsed/ Irrigated with Saline -Foul Odor after Cleansing No -Primary Dressing Applied Other -Other Dressing hydrogel -Primary Dressing Covered/Secured with Dry Gauze, Secured with Tape Treatment Response Procedure Tolerated Well Pain Scale: 0-10 Numeric Is Patient Pain Free? Yes WC - Visit Discharge Discharge Condition Stable Ambulatory Status Ambulatory, Walker Transportation Private Auto Notes: knee walker Wound debrided: #7 Right BKA stump, anterior. Laterality: Right Wound Grade/Stage: IV. No debridement was completed today - Surgical debridement is being planned. Assessment/Plan Clinical Impression(s) from Imaging Studies Lower Extremity MRI 10/13/20 17:30 IMPRESSION: Subtle area of abnormal signal within the distal tibial stump anteriorly with overlying soft tissue thinning and edema. This may represent early osteomyelitis. I do not see a definite abscess. It may be of benefit to repeat the study with intravenous contrast for further evaluation if clinically indicated at 0652 Reported and signed by: Chante Enciso DO Electronically Signed: Chante Enciso DO at 6:51 EST Tel , Service support , Assessment: 1. Nonhealing ulcer right BKA stump, anterior. 2. Diabetes. 3. PVD. 4. History of osteomyelitis. 5. Smoker. Plan: Continue Regranex to the ulcer right BKA stump. She has completed the EpiCord and EpiFix skin substitute grafts. She is complaining of increased pain at the ulcer site and states that she had drainage that she thought looked infected. Wound culture from 09/11/20 was positive for Enterococcus faecalis and Anaerobic cocci. She was placed on Augmentin. MRI from 10/13/20 showed subtle area of abnormal signal within the distal tibial stump anteriorly with overlying soft tissue thinning and edema. This may represent early osteomyelitis. I do not see a definite abscess. It may be of benefit to repeat the study with intravenous contrast for further evaluation if. clinically indicated. She has a history of chronic osteomyelitis. Her HgA1c is 10.5 from 12/07/19 and Prealbumin was 14. Encouraged increase in protein intake to help with wound healing. Pain management is now managing her pain medications. The ulcer has not healed. It still has positive cultures and pain. MRI is suspicious for osteomyelitis. Recommend operative intervention with incision and drainage of infected stump ulcer and partial ostectomy tibia for osteomyelitis. Will leave the ulcer open and place AmnioFill placental connective tissue powder at the base of the ulcer followed by the VAC. Surgery will be done under general anesthesia with a surgical observation overnight stay in the hospital. Patient was informed of the risks and complications of the procedure including alternatives to surgery. These were discussed with her personally. She voices understanding and wishes to proceed. After some healing has occurred, if secondary wound closure of flap reconstruction is needed, then the HgbA1c needs to be less than 8. Encouraged the patient to stop smoking as it may have deleterious effects on wound healing. Followup 3 weeks. Office Visits / Consults: [id number] OV L4 Est - ICD-10 - T87.89, E11.9, I73.9, Z87.39, F17.200
== END 2020-11-05 23:59 ==
LOC: WC 10:00
PROVIDERS: Family Provider Internal Medicine; PCP Internal Medicine; Referring Provider Surgery; Visit Provider Surgery
DX: E11.622 Type 2 diabetes mellitus with other skin ulcer (principal); T87.89 Other complications of amputation stump; E11.51 Type 2 diabetes mellitus with diabetic peripheral angiopathy without gangrene; F17.200 Nicotine dependence, unspecified, uncomplicated; L97.819 Non-pressure chronic ulcer of other part of right lower leg with unspecified severity
CPT/HCPCS: 73718; 99213; G0463

== ENCOUNTER → 2020-11-21 16:08 | Outpatient (CLI) | payer MEDICARE, MEDICAID, SELFPAY ==
[2020-11-21 15:30] VITALS: BMI 35.2
[2020-11-21 17:03] LABS: Absolute Lymphocyte Count 1.49 X10^3/uL (0.83-4.51); Basophil# 0.09 X10^3/uL; Basophil% 1.8 % (0-1); Hematocrit 47.2 % (37-47); Hemoglobin 15.4 g/dL (12.0-15.0); Lymphocyte # 1.49 X10^3/ul (4.0); Lymphocyte % 29.8 % (19-41); Mean Corp Hgb Conc 32.6 g/dL (32-36); Mean Corpuscular Hgb 29.8 pg (27.0-32.0); Mean Corpuscular Volume 91.5 fL (81-99); Mean Platelet Vol. 9.9 fl (6.2-12.0); Monocyte# 0.26 X10^3/uL; Monocyte% 5.2 % (0-10); NRBC Flagged by Analyzer 0 % (0-5); Neutrophil # 2.95 X10^3/uL (2.7-7.7); Platelet Count 336 K/mm3 (150-450); RBC Distribution Width CV 14.8 % (11.6-14.6); RBC Distribution Width SD 50.2 fl (35.1-43.9); Red Blood Count 5.16 M/mm3 (4.2-5.4)
[2020-11-21 17:35] LABS: ALB/GLOB Ratio 0.7 RATIO (0.9-2.4); AST(SGOT) 12 U/L (15-37); Alanine Aminotransfer ALT/SGPT 15 U/L (13-56); Albumin, Serum 3.1 g/dL (3.2-5.0); Alkaline Phosphatase 124 U/L (45-117); Anion Gap 6 (5-15); BUN 11 mg/dL (7-18); BUN/Creat Ratio 14.4 RATIO (10-20); Calcium,Total 8.7 mg/dL (8.5-10.1); Chloride 107 mmol/L (98-107); Creatinine, Serum 0.76 mg/dL (0.55-1.02); EST Glomerular Filtration Rate 86 mL/min (>60); Est Glom Filt Rate - Afr Amer 104 mL/min (>60); Globulin 4.3 g/dL (2.2-4.2); Glucose 189 mg/dL (74-106); Potassium 3.9 mmol/L (3.5-5.1); Protein, Total 7.4 g/dL (6.4-8.2); Sodium Level 139 mmol/L (136-145)
[2020-11-21 17:47] LABS: Microalbumin,Random Urine 41.8 mg/L (NO RANGE EST.); Microalbumin:Creatinine Ratio 25.3 mg/g CRE (<30 mg/g CRE)
== END ==
PROVIDERS: PCP Internal Medicine; Referring Provider Internal Medicine; Visit Provider Internal Medicine
DX: E11.9 Type 2 diabetes mellitus without complications (principal)
CPT/HCPCS: 36415; 80053; 82043; 82570; 85025

== ENCOUNTER 2021-01-02 14:19 | Observation (INO) | payer MEDICARE, MEDICAID, SELFPAY ==
[2020-11-21 15:30] VITALS: BMI 35.2
[2020-12-29 11:29] VITALS: BMI 35.6
--- NOTE | 2021-01-01 13:06 | EKG12_ITS ---
Test Reason : PREOP Blood Pressure : / mmHG Vent. Rate : 096 BPM Atrial Rate : 096 BPM P-R Int : 150 ms QRS Dur : 074 ms QT Int : 356 ms P-R-T Axes : 031 050 048 degrees QTc Int : 449 ms Normal sinus rhythm Normal ECG Confirmed by DOUG RILEY, FAISAL ([id number]), loan expeditor CHANDU PROCTOR ([id number]) on 01/02/2021 8:32:14 AM Referred By: Grzegorz Guadarrama Confirmed By:FAISAL CAMACHO MD
[2021-01-01 15:38] LABS: Hemoglobin A1c 10.9 % (3.8-5.6)
[2021-01-01 15:53] LABS: Anion Gap 8 (5-15); BUN 8 mg/dL (7-18); BUN/Creat Ratio 11.4 RATIO (10-20); Calcium,Total 8.9 mg/dL (8.5-10.1); Chloride 101 mmol/L (98-107); EST Glomerular Filtration Rate 95 mL/min (>60); Est Glom Filt Rate - Afr Amer 114 mL/min (>60); Glucose 286 mg/dL (74-106); Potassium 4.2 mmol/L (3.5-5.1); Sodium Level 136 mmol/L (136-145)
--- NOTE | 2021-01-01 21:27 | HP.PCM_ITS ---
History and Physical Date of Admission: 01/02/21 HISTORY OF PRESENT ILLNESS 50 year old woman presents with pain in her right BKA stump when she is wearing her prosthesis. She states she underwent the right BKA about 4 years ago. She had surgery on 12/28/18 for surgical preparation right BKA stump with incision and drainage and excisional debridement chronic infected seroma anterior aspect of stump and partial ostectomy tibia for osteomyelitis and complex secondary wound closure revision reconstruction. She denies any fever. She denies any trauma besides normal wear and tear of the stump within the prosthesis. She was seen in the office last week and a previous painful lump (probable seroma) had resolved after recent revision of her prosthesis. She started noticing increasing pain and redness on the anterior aspect of her amputation stump over the weekend and went to the ED. X-ray showed no fracture and no evidence of osteomyelitis. There was no evidence of soft tissue gas or radiopaque foreign body. Aspiration was done in the ED and blood was obtained suggestive of a hematoma. A culture was obtained and is negative thus far. Compression therapy with an JOSE D wrap was started. She was started on Keflex and Bactrim. Today she noted worsening symptomatology and has failed outpatient therapy. She is being admitted today to start IV antibiotics and proceed with operative intervention of incision and drainage and excisional debridement infected hematoma with possible partial ostectomy for osteomyelitis. Surgery 12/07/19 - 1. Surgical preparation right BKA stump with incision and drainage and excisional debridement infected hematoma (19.25 cm2). 2. Partial ostectomy tibia for osteomyelitis. Wound care- Finished Epicord and Epifix. She has been using Regranex daily. She is complaining of increased pain at the ulcer site and states that she had drainage that she thought looked infected. Wound cultures obtained on 09/11/20 and were positive for Entercoccus faecalis and Anaerobic cocci. She has been taking Augmentin and a probiotic. Operative bone culture and tissue culture from 12/07/19 showed Staphylococcus aureus. She was treated with Doxycycline. Pathology was negative for osteomyelitis. Pathology from 06/26 was positive for osteomyelitis. Her HgA1c from 12/07/19 was 10.5. Prealbumin from 12/07/19 was 14. Another wound culture was obtained on 02/21/20. It showed Enterococcus faecalis. She was started on Augmentin and has finished them. She santiago another wound culture on 07/11/20. It showed Anaerococcus prevoti and Anaerobic cocci. She was placed on Augmentin and has finished them. An MRI was done on 10/13/20. It showed subtle area of abnormal signal within the distal tibial stump anteriorly. with overlying soft tissue thinning and edema. This may represent early. osteomyelitis. I do not see a definite abscess. It may be of benefit to. repeat the study with intravenous contrast for further evaluation if. clinically indicated.. She denies fever today and states her appetite is ok. HgbA1c was 10.9 from 01/01/21. PAST MEDICAL HISTORY History of necrotizing fasciitis Tobacco abuse depression History of gangrene Pressure sore of left ischium, stage 4 Osteomyelitis PVD (peripheral vascular disease) HLD (hyperlipidemia) Benign essential HTN Anxiety Diabetes Neuropathy Raynaud disease Vascular disease PAST SURGICAL HISTORY Status post colostomy Reversal of loop colostomy excision left ischial pressure sore Amputation of right lower extremity cholecystectomy Surgical preparation left ischial/perineal pressure sore flap wound with inferior extension onto posterior thigh with incision and drainage and excisional debridement infection abscess (252 cm2) - 01/20/18 Surgical preparation right BKA stump with incision and drainage and excisional debridement chronic infected seroma anterior aspect of stump and partial ostectomy tibia for osteomyelitis and complex secondary wound closure revision reconstruction - 12/28/18 Surgical preparation anterior aspect right BKA stump with excisional debridement nonhealing painful ulcer and partial ostectomy tibia for osteomyelitis and 3 cm complex secondary wound closure - 06/11/19 Surgical preparation right BKA stump with incision and drainage and excisional debridement infected hematoma (19.25 cm2) and partial ostectomy tibia for osteomyelitis - 12/07/19 ALLERGIES fentanyl morphine MEDICATIONS pregabalin 150 mg capsule 100 mg PO TID cap 06/03/19 [History Confirmed 12/06/19] aspirin 81 mg tablet,delayed release 81 mg PO DAILY #90 tab 07/01/19 [Rx Confirmed 12/06/19] atorvastatin 40 mg tablet 40 mg PO DAILY #90 tab 07/01/19 [Rx Confirmed 12/06/19] clopidogrel 75 mg tablet 75 mg PO DAILY #90 tab 07/01/19 [Rx Confirmed 12/06/19] duloxetine 30 mg capsule,delayed release 60 mg PO BID #180 cap 07/01/19 [Rx Confirmed 12/06/19] pantoprazole 40 mg tablet,delayed release 40 mg PO QDAY #90 tab 07/01/19 [Rx Confirmed 12/06/19] nicotine 21mg/24hr-14mg/24hr-7mg/24hr daily transderm patch,sequential 1 patch TRANSDERMAL QDAY #70 patch 07/06/19 [Rx Confirmed 12/06/19] nicotine 14 mg/24 hr daily transdermal patch 14 mg TRANSDERMAL QDAY #42 patch 07/13/19 [Rx Confirmed 12/06/19] nicotine 21mg/24hr-14mg/24hr-7mg/24hr daily transderm patch,sequential 1 patch TRANSDERMAL QDAY #70 patch 07/13/19 [Rx Confirmed 12/06/19] nicotine 7 mg/24 hr daily transdermal patch 1 patch TRANSDERMAL Q24H #14 patch 07/13/19 [Rx Confirmed 12/06/19] insulin detemir U-100 100 unit/mL (3 mL) subcutaneous pen See Rx Instructions .ROUTE .COMPLEX #15 ml 11/24/19 [Rx Confirmed 12/06/19] hydrocodone 5 mg-acetaminophen 325 mg tablet 1 tab PO DAILY PRN tab 11/25/19 [History Confirmed 12/06/19] blood sugar diagnostic See Rx Instructions .ROUTE .MEDSUPPLY #100 ea 11/26/19 [Rx Confirmed 12/06/19] dulaglutide 1.5 mg/0.5 mL subcutaneous pen injector 1.5 mg SUBCUT QWEEK #2 ml 11/26/19 [Rx Confirmed 12/06/19] insulin lispro 100 unit/mL subcutaneous pen 12 unit SUBCUT TIDAC #15 ml 11/26/19 [Rx Confirmed 12/06/19] Cephalexin [Keflex] 500 mg PO Q6 #28 cap 12/04/19 [Rx Confirmed 12/06/19] Smz/Tmp Ds [Bactrim Ds] 1 tab PO BID #14 tab 12/04/19 [Rx Confirmed 12/06/19] baclofen 20 mg tablet 20 mg PO TID #90 tab 12/06/19 [Rx Confirmed 12/06/19] FAMILY HISTORY Father - Cancer Mother - Hypertension, Fibromyalgia Brother - Diabetes Grandmother - Myocardial infarction Grandfather - Cancer SOCIAL HISTORY Smoking Status: Current every day smoker Tobacco: How many years used: 20 how long ago did patient quit smokin alcohol intake: never substance use type: does not use REVIEW OF SYSTEMS General - Denies fever, fatigue, and weight loss. Eyes - Denies glaucoma. Has cataracts. ENT - Denies nasal congestion and sore throat. Endocrine - Denies excessive thirst and urination. Has heat and cold intolerance. Has diabetes mellitus. Skin - Denies suspicious lesions and skin cancer. Musculoskeletal - Denies joint pain, joint stiffness, weakness of muscles and joints and arthritis. Has back pain. Has increasing pain and redness right BKA stump with aspiration suggestive of a hematoma. Has history of osteomyelitis. Neuro - Denies headaches. Cardiovascular - Denies chest pain, fatigue, and shortness of breath with exertion. Psych - Denies anxiety. Has depression. Respiratory - Denies chronic cough and shortness of breath. Patient is a smoker. Gastrointestinal - Denies nausea, vomiting, diarrhea, and constipation. Hematologic - Denies abnormal bruising and bleeding. Genitourinary - Denies hematuria and urinary frequency. PHYSICAL EXAMINATION General - Alert and Oriented HEENT - PERRL. EOMI. Throat is clear. Neck - Supple and nontender. No cervical adenopathy. Lungs - Clear to auscultation. Heart - Regular rate and rhythm. Abdomen - Soft and nondistended. Functioning colostomy. Extremities - FROM upper extremities and left lower extremity. Has a right BKA stump. Incisions are healed. On the anterior surface of the right BKA stump is an area of redness and tenderness over the scar. The area of redness measures 5 x 5 cm. Mild swelling seen. No purulent drainage noted. No fluctuance noted. Distance from the tibial tubercle to the stump is 12 cm. No inguinal adenopathy. Femoral pulses are palpable. No axillary adenopathy. Radial p ulses are palpable. Neuro - CN II-XII grossly intact. Psych - Normal mood and affect. ASSESSMENT 1. Traumatic infected hematoma right BKA stump, etiology unknown. 2. Diabetes mellitus. 3. PVD. 4. Smoker. 5. History of necrotizing infection. 6. History of osteomyelitis. 1. Nonhealing ulcer right BKA stump, anterior. 2. Diabetes. 3. PVD. 4. History of osteomyelitis. 5. Smoker. PLAN X-ray reviewed. No fracture was seen. No osteomyelitis noted. No gas seen. No foreign body seen. Culture result from ED 12/04/19 reviewed. It is negative thus far. Keflex and Bactrim was continued. Since the aspiration in the ED was bloody, we tried to resolve the small hematoma with JOSE D wrap compression. The pain and redness continued to worsen suggestive of a worsening infection, so it was recommended to the patient to be admitted to the hospital and IV antibiotics started. CT would be obtained to evaluate the extent of the hematoma. Will proceed with operative intervention with incision and drainage and evacuation of the hematoma would be necessary. If it extends down to the tibia, then a partial ostectomy for osteomyelitis would be done. Postop wound care will be with the VAC. After discharge from the hospital, would followup at the Wound Center. With her history of vascular disease, she had noninvasive arterial doppler studies on 05/05/19. It showed no evidence of significant arterial occlusive disease in the right lower extremity. Patient is aware that her chronic pain before the hematoma could be exacerbated by her diabetes mellitus and her smoking. She states she is trying to quit. Sh states she gets HgbA1c checks from her PCP. Good control of her diabetes mellitus will certainly minimize any symptomatology from neuropathy that can occur in diabetics. She is already on maximal doses of Lyrica and sees Pain Management. Encouraged patient to stop smoking as it may have deleterious effects on wound healing. Patient was informed of the risks and complications of the procedure including alternatives to surgery. These were discussed with the patient personally. Patient voices understanding and wishes to proceed. Plan: Continue Regranex to the ulcer right BKA stump. She has completed the EpiCord and EpiFix skin substitute grafts. She is complaining of increased pain at the ulcer site and states that she had drainage that she thought looked infected. Wound culture from 09/11/20 was positive for Enterococcus faecalis and Anaerobic cocci. She was placed on Augmentin. MRI from 10/13/20 showed subtle area of abnormal signal within the distal tibial stump anteriorly with overlying soft tissue thinning and edema. This may represent early osteomyelitis. I do not see a definite abscess. It may be of benefit to repeat the study with intravenous contrast for further evaluation if. clinically indicated. She has a history of chronic osteomyelitis. Her HgA1c is 10.5 from 12/07/19 and Prealbumin was 14. Encouraged increase in protein intake to help with wound healing. Pain management is now managing her pain medications. The ulcer has not healed. It still has positive cultures and pain. MRI is suspicious for osteomyelitis. Recommend operative intervention with incision and drainage of infected stump ulcer and partial ostectomy tibia for osteomyelitis. Will leave the ulcer open and place AmnioFill placental connective tissue powder at the base of the ulcer followed by the VAC. Surgery will be done under general anesthesia with a surgical observation overnight stay in the hospital. Patient was informed of the risks and complications of the procedure including alternatives to surgery. These were discussed with her personally. She voices understanding and wishes to proceed. After some healing has occurred, if secondary wound closure of flap reconstruction is needed, then the HgbA1c needs to be less than 8. Encouraged the patient to stop smoking as it may have deleterious effects on wound healing. Followup 3 weeks.
[2021-01-02] VITALS (12 sets, daily range): BP systolic 91–128; BP diastolic 50–84; PULSE 69–96; RESP 14–20; TEMP 36.5–37.2; O2SAT 92–97; BMI 36.5
--- NOTE | 2021-01-02 | BON_PTH ---
PATIENT: BERTRAM GARY LOC: MS3 U#:[id number] AGE/SX: 50/F ROOM: [facility] [place] RE01/02/[address]: Dr. Grzegorz Guadarrama MD : 1970 BED: 1 DIS: 01/04/2021 SPEC #: [id number] RECD: 01/02/21 13:18 STATUS: ZENA REChau #: [id number] LANIE: 01/02/21 00:[address]: Grzegorz Guadarrama DEPT: SURGICAL PATHOLOGY RECD BY: William Monroy ENTERED: 01/03/21 09:30 SP TYPE: Bone OTHR DR: Dr. Sasha Rodriguez MD Tissues: A - Bone of lower extremity, NOS B - Leg, NOS Procedures: Decalcification bone/plaque Surgery Specimen Level III Surgery Specimen Level V HEADER OPERATION: Surgical preparation anterior BKA stump with incision and drainage PRE-OP DIAGNOSIS: Traumatic infected hematoma right BKA stump; history of osteomyelitis TISSUE SUBMITTED: A ? Bone, nonhealing ulcer right BKA stump, B ? Soft tissue, nonhealing ulcer right BKA stump MICROSCOPIC DIAGNOSIS A. Bone, nonhealing ulcer right BKA stump: Pieces of bone with focal minimal chronic inflammation and reactive changes. A few pieces of fibroconnective tissue with mild chronic inflammation. Negative for acute osteomyelitis. B. Soft tissue, nonhealing ulcer right BKA stump: Pieces of skin with underlying tissue with fibrosis, mild chronic inflammation and focal hyperkeratosis. See comment. SJ:nain 01/08/2021 COMMENT Clinical correlation and appropriate follow up are necessary. MICROSCOPIC DESCRIPTION Slides are reviewed. GROSS DESCRIPTION A - Received in fixative is one container labeled with the patient's name and designated bone, nonhealing ulcer right BKA stump. The specimen consists of multiple fragments of bone that in aggregate measure 2 x 1 x 0.3 cm. The specimen is totally submitted in one cassette after decalcification. B - Received in fixative is one container labeled with the patient's name and designated soft tissue, nonhealing ulcer right BKA stump. The specimen consists of a piece of skin with underlying tissue measuring 2.5 x 2 x 0.5 cm. Sawmill Hand sections are submitted in one cassette. / ISABELLA:nain 01/03/21 TC:3 CPT: 47618, 62616, 72077
[2021-01-02] MEDS: Vancomycin IV 1,000 MG/200 ML BAG 200 MG IV (07:00)
[2021-01-02 11:05] LABS: Bedside Glucose 307 mg/dL (70-110)
[2021-01-02] MEDS: metroNIDAZOLE 500 MG/100 ML BAG 100 MG IV (11:19)
[2021-01-02] MEDS: Lidocaine 1% /Epi 1:100 (20ml) 20 ML Vial (12:16)
--- NOTE | 2021-01-02 15:41 | PCM.HP.BLA ---
History and Physical Date of Admission: 01/02/21 HISTORY OF PRESENT ILLNESS 50 year old woman presents with a painful nonhealing infected diabetic ulcer anterior aspect right BKA stump. She is currently using Regranex for wound care. She has has had EpiCord and EpiFix placental connective tissue grafts in the past as well. ?She states she underwent the right BKA about 5 years ago.? She has had trouble with the stump over the last couple of years. Her last surgery was on 12/07/19 where she underwent surgical preparation right BKA stump with incision and drainage and excisional debridement infected hematoma (19.25 cm2) and partial ostectomy tibia for osteomyelitis.? She has had multiple wound cultures done, the most recent one on 07/11/20. She has grown out Staphylococcus aureus, Enterococcus faecalis and Anaerobes. She has been treated during this time with Doxycycline and Augmentin. She has a history of osteomyelitis in the past. On 10/13/20 she had an MRI. It showed subtle area of abnormal signal within the distal tibial stump anteriorly with overlying soft tissue thinning and edema. This may represent early osteomyelitis. I do not see a definite abscess. It may be of benefit to repeat the study with intravenous contrast for further evaluation if clinically indicated. Her most recent HgbA1c from 01/01/21 was 10.9. She presents today for further operative debridement with partial ostectomy for osteomyelitis. She also has a history of MRSA. PAST MEDICAL HISTORY Nonhealing diabetic ulcer anterior aspect right BKA stump History of necrotizing fasciitis Tobacco abuse depression History of gangrene Pressure sore of left ischium, stage 4 Osteomyelitis PVD (peripheral vascular disease) HLD (hyperlipidemia) Benign essential HTN Anxiety Diabetes Neuropathy Raynaud disease Vascular disease HgbA1c greater than 9.0 PAST SURGICAL HISTORY? Status post colostomy Reversal of loop colostomy excision left ischial pressure sore Amputation of right lower extremity cholecystectomy Surgical preparation right BKA stump with incision and drainage and excisional debridement infected hematoma (19.25 cm2) and partial ostectomy tibia for osteomyelitis - 12/07/19 ALLERGIES? fentanyl morphine MEDICATIONS? pregabalin aspirin atorvastatin clopidogrel duloxetine pantoprazole insulin detemir dulaglutide insulin lispro baclofen FAMILY HISTORY ? Father?- Cancer Mother -?Hypertension, Fibromyalgia Brother?- Diabetes Grandmother?- Myocardial infarction Grandfather?- Cancer SOCIAL HISTORY ? Smoking Status:? Current every day smoker Tobacco: How many years used:? 20 how long ago did patient quit smoking:? 2018 alcohol intake:? never substance use type:? does not use REVIEW OF SYSTEMS ? General - Denies fever, fatigue, and weight loss. Eyes - Denies glaucoma.? Has cataracts. ENT - Denies nasal congestion and sore throat. Endocrine - Denies excessive thirst and urination.? Has heat and cold intolerance.? Has diabetes mellitus. Skin - Denies suspicious lesions and skin cancer. Musculoskeletal - Denies joint pain, joint stiffness, weakness of muscles and joints and arthritis. Has back pain.? Has increasing pain and redness right BKA stump with aspiration suggestive of a hematoma. Has history of osteomyelitis. Neuro - Denies headaches. Cardiovascular - Denies chest pain, fatigue, and shortness of breath with exertion. Psych - Denies anxiety.? Has depression. Respiratory - Denies chronic cough and shortness of breath.? Patient is a smoker. Gastrointestinal - Denies nausea, vomiting, diarrhea, and constipation. Hematologic - Denies abnormal bruising and bleeding. Genitourinary - Denies hematuria and urinary frequency. PHYSICAL EXAMINATION ? General - Alert and Oriented HEENT - PERRL. EOMI.? Throat is clear. Neck - Supple and nontender.? No cervical adenopathy. Lungs - Clear to auscultation. Heart - Regular rate and rhythm. Abdomen - Soft and nondistended. ? Functioning colostomy. Extremities - FROM upper extremities and left lower extremity. Has a right BKA stump.? On the anterior aspect, there is a nonhealing ulcer with bone exposed. Measures 5 mm. Tender to palpation. Mild redness seen around the ulcer. No fluctuance. No purulent drainage. Distance from the tibial tubercle to the stump is 12 cm.? No inguinal adenopathy.? Femoral pulses are palpable.? No axillary adenopathy.? Radial pulses are palpable. Neuro - CN II-XII grossly intact. Psych - Normal mood and affect. ASSESSMENT 1.? Nonhealing painful infected diabetic ulcer anterior aspect right BKA stump. 2.? Diabetes mellitus. 3.? PVD. 4.? Smoker. 5.? History of osteomyelitis. 6. HgbA1c greater than 9.0. 7. History of MRSA. 8. History of right BKA. PLAN MRI from 10/13/20 was reviewed. It is suspicious for osteomyelitis. With worsening of the ulcer and exposed bone, it was recommended to the patient to proceed with operative intervention with surgical preparation nonhealing painful infected diabetic ulcer anterior aspect right BKA stump. Her HgbA1c from 01/01/21 was 10.9 so no attempt at wound closure will be done today. The HgbA1c needs to be less than 8 for any elective surgical closure. Will send soft tissue and bone to Pathology to evaluate for carcinoma as well as for osteomyelitis. Will also send soft tissue and bone to Microbiology for culture. A positive culture will necessitate antibiotic therapy. If osteomyelitis is confirmed, then a PICC line would be placed for senior living IV antibiotics. At the time of surgery will place AmnioFill placental connective tissue powder at the base of the ulcer followed by the VAC. Surgery will be done under general anesthesia with a surgical observation overnight stay in the hospital.? Patient was informed of the risks and complications of the procedure including alternatives to surgery.? These were discussed with her personally.? She voices understanding and wishes to proceed.? After some healing has occurred, if secondary wound closure of flap reconstruction is needed, then the HgbA1c needs to be less than 8.? Encouraged the patient to stop smoking as it may have deleterious effects on wound healing.? After discharge, will followup at the Wound Center. We discussed the current risks associated with COVID-19. While it is understood that there is a community spread of COVID-19, the risk of radha COVID-19 while at [facility] ([facility]) is very low; however, the risk cannot be completely mitigated because of the community spread of the disease. We discussed in detail the risk of exposure to and/or potential harm posed by the COVID-19 virus with having a surgery/procedure at this time versus the risk of delaying the surgery/procedure. It is not possible to know either the risk of delaying the surgery or procedure or chance of getting an infection with perfect accuracy, but a joint decision was made to proceed at this time with the scheduled surgery/procedure as indicated on the consent form. Patient was notified that we will need to comply with any screening or testing [facility] wishes to perform or that surgery may be delayed for any positive results. Discussed with the patient that I was tested for COVID-19 on 03/09/20 which was negative and on 03/23/20 which was negative and on 04/06/20 which was negative and on 04/20/20 which was negative and on 05/04/20 which was negative and on 05/25/20 which was negative and on 06/15/20 which was negative and on 07/20/20 which was negative and on 08/10/20 which was negative and on 08/29/20 which was negative. ? My testing regimen at this time is to be COVID-19 tested every 2 weeks or so.? I received the COVID-19 vaccine (Moderna) on 09/06/20 and the second vaccine dose was received on 10/04/20.? When I was hospitalized on 11/06/20 I was tested for COVID-19 which was negative.? I was also? tested for COVID-19 on 11/21/20 which was negative and on 12/18/20 which was negative. Procedure Criteria Procedure Type:?Elective COVID Risk Discussion: The surgeon/proceduralist and patient have discussed in detail the risk of exposure to and/or potential harm posed by the COVID-19 virus with having a surgery/procedure at this time versus the risk of delaying the surgery/procedure.? It is not possible to know either the risk of delaying the surgery or procedure or chance of getting an infection with perfect accuracy, but a joint decision was made between the patient and the surgeon/proceduralist to proceed at this time with the scheduled surgery/procedure as indicated on the consent form.
[2021-01-02] MEDS: Lactated Ringers 1,000 ML 60 ML IV (15:51)
[2021-01-02] MEDS: HYDROmorphone 1 MG/ML Syringe IV ×2 (15:52→21:50)
[2021-01-02] MEDS: 0.9% Saline Lock 10 ML Syringe IV ×2 (15:53→21:50)
[2021-01-02] MEDS: Juven (unflavored) Packet 1 PACKET PO (17:12)
[2021-01-02] MEDS: Insulin Lispro 100 UNIT/ML INSULN.PEN SC ×2 (17:13→21:46)
[2021-01-02 17:31] LABS: Bedside Glucose 292 mg/dL (70-110)
[2021-01-02] MEDS: oxyCODONE 5 MG Tablet PO (19:09)
[2021-01-02] MEDS: Docusate Sodium 100 MG Capsule PO (21:46)
[2021-01-02] MEDS: diazePAM 5 MG Tablet PO (21:50)
[2021-01-02 22:01] LABS: Bedside Glucose 338 mg/dL (70-110)
[2021-01-03 03:00] VITALS: BP 106/59; PULSE 70; RESP 16; TEMP 36.8; O2SAT 99
[2021-01-03] MEDS: 0.9% Saline Lock 10 ML Syringe IV ×3 (03:25→22:18)
[2021-01-03] MEDS: HYDROmorphone 1 MG/ML Syringe IV ×5 (03:25→22:23)
[2021-01-03] MEDS: oxyCODONE 5 MG Tablet PO ×4 (06:27→21:08)
[2021-01-03 06:35] LABS: Bedside Glucose 206 mg/dL (70-110)
[2021-01-03 07:12] LABS: Absolute Lymphocyte Count 1.15 X10^3/uL (0.83-4.51); Absolute Neutrophil Count 2.9 X10^3/uL (2.0-7.7); Basophil% 2.2 % (0-1); Eosinophil# 0.19 X10^3/uL; Eosinophils% 4.1 % (0-5); Hematocrit 40.8 % (37-47); Hemoglobin 12.7 g/dL (12.0-15.0); Lymphocyte # 1.15 X10^3/ul (0.83-4.51); Lymphocyte % 24.9 % (19-41); Mean Corp Hgb Conc 31.1 g/dL (32-36); Mean Corpuscular Hgb 29.2 pg (27.0-32.0); Mean Corpuscular Volume 93.8 fL (81-99); Mean Platelet Vol. 10.4 fl (6.2-12.0); Monocyte% 6.5 % (0-10); NRBC Flagged by Analyzer 0 % (0-5); Neutrophil # 2.86 X10^3/uL (2.7-7.7); Neutrophil % 62.1 % (47-70); Platelet Count 255 K/mm3 (150-450); RBC Distribution Width SD 48.1 fl (35.1-43.9); Red Blood Count 4.35 M/mm3 (4.2-5.4); White Blood Count 4.6 K/mm3 (4.4-11.0)
[2021-01-03 07:49] LABS: Anion Gap 3 (5-15); BUN 13 mg/dL (7-18); BUN/Creat Ratio 21.4 RATIO (10-20); Calcium,Total 8.4 mg/dL (8.5-10.1); Chloride 106 mmol/L (98-107); Creatinine, Serum 0.61 mg/dL (0.55-1.02); EST Glomerular Filtration Rate 112 mL/min (>60); Est Glom Filt Rate - Afr Amer 135 mL/min (>60); Estimated Creatinine Clearance 113.77 ml/min; Glucose 209 mg/dL (74-106); Potassium 4.1 mmol/L (3.5-5.1); Sodium Level 137 mmol/L (136-145)
[2021-01-03 09:00] VITALS: BP 124/65; PULSE 79; RESP 18; TEMP 36.7; O2SAT 92
[2021-01-03] MEDS: Lactated Ringers 1,000 ML 60 ML IV ×2 (09:17→18:31)
[2021-01-03] MEDS: Insulin Lispro 100 UNIT/ML INSULN.PEN SC ×4 (09:18→21:14)
[2021-01-03] MEDS: Juven (unflavored) Packet 1 PACKET PO ×2 (09:19→17:15)
[2021-01-03] MEDS: Docusate Sodium 100 MG Capsule PO ×2 (09:26→21:08)
[2021-01-03] MEDS: HYDROmorphone 2 MG TABLET PO (10:15)
[2021-01-03 11:30] LABS: Bedside Glucose 217 mg/dL (70-110)
--- NOTE | 2021-01-03 11:57 | CASEMGMT ---
ADIN HALEY updated by wound nurse that patient will need HHC for wound vac. ADIN HALEY in to discuss HHC with patient. Patient was provided a list of HHC providers including quality and resource use data and consistent with the patient?s preferred geographic region, medical needs, and insurance network. The patient?s preferred provider is [facility] as she has had them previously. RN SUDHA called and sent referral to [facility] and they should be able to accept the patient. ADIN HALEY will continue to follow this patient and plan for a safe discharge.
[2021-01-03] MEDS: diazePAM 5 MG Tablet PO ×2 (12:02→22:18)
--- NOTE | 2021-01-03 12:19 | NURSING ---
wound photo: right stump
--- NOTE | 2021-01-03 13:21 | PCM.PN.SRG ---
Subjective Subjective: Patient sitting up in bed. She states her pain is not controlled. She states she is requiring IV pain meds to help with her discomfort. Objective Data Objective Data Vital Signs: Vital Signs Temp Pulse Resp BP Pulse Ox 98.0 F 79 18 124/65 H 92 01/03/21 09:00 01/03/21 09:00 01/03/21 09:00 01/03/21 09:00 01/03/21 09:00 Oxygen Flow Rate (L/min) 2 Oxygen Delivery Method Room Air Weight: 240 lb 4.862 oz Body Mass Index (BMI) 36.5 Finger Stick Blood Glucose 125 Intake & Output: Intake and Output for Last 24 Hours 01/01/21 01/02/21 01/03/21 23:59 23:59 23:59 Intake Total 1423 / 1423 1942 / 1942 Output Total 0 / 1200 3600 / 3600 Balance 1423 / 223 -1658 / -1658 Lab / Micro Data Result Diagrams: 01/03/21 06:35 01/03/21 06:35 Labs: Laboratory Results - last 24 hr 01/02/21 01/02/21 01/03/21 17:07 21:45 06:23 WBC RBC Hgb Hct MCV MCH MCHC RDW Std Deviation RDW Coeff of Mona Plt Count MPV Immature Gran % (Auto) Neut % (Auto) Lymph % (Auto) [place] % (Auto) Eos % (Auto) Baso % (Auto) Absolute Neuts (auto) Absolute Lymphs (auto) Nucleated RBC % Sodium Potassium Chloride Carbon Dioxide Anion Gap BUN Creatinine Estim Creat Clear Calc Est GFR (MDRD) Af Amer Est GFR (MDRD) Non-Af BUN/Creatinine Ratio Glucose Calcium Prealbumin POC Glucose 292 H 338 H 206 H 01/03/21 01/03/21 01/03/21 06:35 06:35 11:28 WBC 4.6 RBC 4.35 Hgb 12.7 Hct 40.8 MCV 93.8 MCH 29.2 MCHC 31.1 L RDW Std Deviation 48.1 H RDW Coeff of Mona 14.0 Plt Count 255 MPV 10.4 Immature Gran % (Auto) 0.200 Neut % (Auto) 62.1 Lymph % (Auto) 24.9 [place] % (Auto) 6.5 Eos % (Auto) 4.1 Baso % (Auto) 2.2 H Absolute Neuts (auto) 2.9 Absolute Lymphs (auto) 1.15 Nucleated RBC % 0 Sodium 137 Potassium 4.1 Chloride 106 Carbon Dioxide 28.0 Anion Gap 3 L BUN 13 Creatinine 0.61 Estim Creat Clear Calc 113.77 Est GFR (MDRD) Af Amer 135 Est GFR (MDRD) Non-Af 112 BUN/Creatinine Ratio 21.4 H Glucose 209 H Calcium 8.4 L Prealbumin 14.0 L POC Glucose 217 H Micro: Microbiology 01/02/21 Unknown Bone - Leg, Right Gram Stain - Final 01/02/21 Unknown Bone - Leg, Right Wound Culture - Preliminary No growth-Final to follow 01/02/21 Unknown Tissue Ulcer - Leg Gram Stain - Final 01/01/21 13:14 Interface Orders SARS-CoV-2 Antigen (Rapid) - Final Physical Exam Const oriented x3 Resp normal respiratory effort and clear to auscultation bilaterally Cardio regular rate and regular rhythm GI soft to palpation Extremity full ROM Extremity Narrative: Right BKA dressing intact and connected to wound VAC at 125 mmHg. JOSE D wrap for compression. Hypersensitive to light palpation. 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 Code(s): T87.89 - Other complications of amputation stump; L97.919 - Non-pressure chronic ulcer of unspecified part of right lower leg with unspecified severity (2) DM2 (diabetes mellitus, type 2): Status: Chronic Code(s): E11.9 - Type 2 diabetes mellitus without complications Qualifiers: Qualified Code(s): Z79.4 - jail (current) use of insulin (3) PVD (peripheral vascular disease): Status: Chronic Code(s): I73.9 - Peripheral vascular disease, unspecified (4) Tobacco abuse: Status: Chronic Code(s): Z72.0 - Tobacco use (5) Hemoglobin A1C greater than 9%, indicating poor diabetic control: Status: Acute Code(s): R73.09 - Other abnormal glucose (6) History of osteomyelitis: Status: Chronic Code(s): Z87.39 - Personal history of other diseases of the musculoskeletal system and connective tissue (7) History of methicillin resistant staphylococcus aureus (MRSA): Status: Chronic Code(s): Z86.14 - Personal history of Methicillin resistant Staphylococcus aureus infection (8) Hx of right BKA: Status: Chronic Code(s): Z89.511 - Acquired absence of right leg below knee (9) 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: Status: Chronic Code(s): T87.89 - Other complications of amputation stump; M79.604 - Pain in right leg (10) Chronic pain: Status: Chronic Code(s): G89.29 - Other chronic pain Plan: Right stump wound with wound VAC dressing in place at 125 mmHg. Wound cultures pending. Continue Vancomycin. Pain controlled with IV pain meds. Will keep her overnight to try to get pain under control. Prealbumin 14.0. Encourage increase in protein intake. Follow up at the wound center after discharge.
[2021-01-03 13:30] VITALS: BP 121/61; PULSE 88; RESP 18; TEMP 37.1; O2SAT 96
--- NOTE | 2021-01-03 14:41 | CASEMGMT ---
ADIN HALEY NOTE: Intro role of CM to patient and NGUYEN form explained re: Observation status for treatment of right stump debridement. Explained hospitalization will be paid per?her insurance policy for Outpatient billing?and condition will continue to be evaluated for Inpt necessity. Also let pt know that [facility] sends paper in the billing packet with their phone number if questions arise. Discussed Pharmacy section of NGUYEN form and self administered medication guideline.? Pt verbalizes understanding and does not have further questions. ? Form signed, copy made and placed in chart, and original given to pt. Hung HEATH RN, CM ?
--- NOTE | 2021-01-03 16:44 | NURSING ---
This nurse in to talk with pt at request of primary RN Cortney. aware pt upset, wants to get up oob by herself, wants to leave unit and primary RN just got home meds reordered and patient upset not given sooner. Pt found sitting on edge of bed, tearful, and states she wants shahram manrique notified she wants to leave. Pt verbalized upset stating feels was told she was getting on her nurse's nerves. Discussed with patient; medications, home meds-nurse attempting to obtain from pharmacy, orders, patient safety, leaving the unit, and visitors. Discussed new orders obtained by Cortney OAKLEY. DIscussed prn medications and safety concern of her getting oob by herself. discussed that we can change her visitors from what she requested postop yesterday to allowing her daughter to visit. Changes made in computer and main enterence notified to send daughter to unit. discussed this nurse will contact physician discussed getting a new nurse and pt verbalized understanding that for safety purposes would still request staff be with her when she gets oob and request that she not leave the unit. discussed getting order for nicotine gum from dr. hooper or shahram manrique. discussed wound and wound vac and in best interest not to leave ama. Pt agreeable to new nurse and staying at this time. new primary RN, Asia young.
[2021-01-03] MEDS: Clopidogrel Bisulfate 75 MG Tablet PO (16:54)
[2021-01-03] MEDS: Pregabalin 50 MG Capsule 200 MG PO ×2 (16:54→21:18)
[2021-01-03] MEDS: QUEtiapine 25 MG Tablet PO (17:00)
[2021-01-03 17:01] LABS: Bedside Glucose 299 mg/dL (70-110)
[2021-01-03 17:44] LABS: Vancomycin, Trough Level 18.5 ug/mL (5.0-15.0)
[2021-01-03 20:00] VITALS: BP 128/105; PULSE 78; RESP 18; TEMP 37; O2SAT 97
[2021-01-03] MEDS: Fluconazole 100 MG Tablet 200 MG PO (20:28)
--- NOTE | 2021-01-03 20:43 | PCM.RX.CS ---
Consult Pharmacy has been consulted to manage selected antiobiotic: Vancomycin Type of Consult: Follow-up Labs: Sodium 137 mmol/L (136-145) 01/03/21 06:35 Potassium 4.1 mmol/L (3.5-5.1) 01/03/21 06:35 Chloride 106 mmol/L (98-107) 01/03/21 06:35 Carbon Dioxide 28.0 mmol/L (21.0-32.0) 01/03/21 06:35 Anion Gap 3 (5-15) L 01/03/21 06:35 BUN 13 mg/dL (7-18) 01/03/21 06:35 Creatinine 0.61 mg/dL (0.55-1.02) 01/03/21 06:35 Est GFR (MDRD) Af Amer 135 mL/min (>60) 01/03/21 06:35 Est GFR (MDRD) Non-Af 112 mL/min (>60) 01/03/21 06:35 BUN/Creatinine Ratio 21.4 RATIO (10-20) H 01/03/21 06:35 Glucose 209 mg/dL (74-106) H 01/03/21 06:35 Vancomycin Trough 18.5 ug/mL (5.0-15.0) H 01/03/21 17:08 Microbiology: Microbiology 01/02/21 Unknown Bone - Leg, Right Gram Stain - Final 01/02/21 Unknown Bone - Leg, Right Wound Culture - Preliminary No growth-Final to follow 01/02/21 Unknown Tissue Ulcer - Leg Gram Stain - Final 01/01/21 13:14 Interface Orders SARS-CoV-2 Antigen (Rapid) - Final Goal Trough: 15-20 mcg/mL Pharmacy Plan for Drug Dosing: VANCOMYCIN LEVEL RECEIVED Current Vancomycin Dose: 1250MG IV Q8 Number of Doses Received: 4 Vancomycin Level: 18.5 Hours Since Last Dose: 8HR Renal Function: 0.61 Renal Function Trend: STABLE Vancomycin Plan/Comments: TROUGH WITHIN GOAL RANGE OF 15-20. CONTINUE CURRENT DOSE AND RECHECK TROUGH IN 2 DAYS. Pending Level: 01/05/21 @2115 Pharmacy Service will continue to monitor and adjust dosing as required.
[2021-01-03] MEDS: Baclofen 10 MG Tablet PO (21:08)
--- NOTE | 2021-01-03 21:08 | PCM.OPRPT ---
Report of Operation Date of Procedure: 01/02/21 Pre-Operative Diagnosis: 1. Nonhealing painful infected diabetic ulcer anterior aspect right BKA stump. 2. Diabetes mellitus. 3. PVD. 4. Smoker. 5. History of osteomyelitis. 6. HgbA1c greater than 9.0. 7. History of MRSA. 8. History of right BKA. Post-Operative Diagnosis: Same. Surgery/Procedure Performed:: 1. Surgical preparation anterior aspect right BKA stump with incision and drainage and excisional debridement nonhealing painful infected diabetic ulcer (12 cm2). 2. Partial ostectomy tibia for osteomyelitis. Description of Surgical Findings:: 50 year old woman presents with a painful nonhealing infected diabetic ulcer anterior aspect right BKA stump.? She is currently using Regranex for wound care.? She has has had EpiCord and EpiFix placental connective tissue grafts in the past as well.? ?She states she underwent the right BKA about 5 years ago.? She has had trouble with the stump over the last couple of years.? Her last surgery was on 12/07/19 where she underwent surgical preparation right BKA stump with incision and drainage and excisional debridement infected hematoma (19.25 cm2) and partial ostectomy tibia for osteomyelitis.? She has had multiple wound cultures done, the most recent one on 07/11/20.? She has grown out Staphylococcus aureus, Enterococcus faecalis and Anaerobes.? She has been treated during this time with Doxycycline and Augmentin.? She has a history of osteomyelitis in the past.? On 10/13/20 she had an MRI.? It showed subtle area of abnormal signal within the distal tibial stump anteriorly with overlying soft tissue thinning and edema. This may represent early osteomyelitis. I do not see a definite abscess. It may be of benefit to repeat the study with intravenous contrast for further evaluation if clinically indicated.? Her most recent HgbA1c from 01/01/21 was 10.9.? She presents today for further operative debridement with partial ostectomy for osteomyelitis.? She also has a history of MRSA. Patient was informed of the risks and complications of the procedure including alternatives to surgery. These were discussed with the patient personally. Patient voices understanding and wishes to proceed. Encouraged patient to stop smoking as it may have deleterious effects on wound healing. Size of defect anterior aspect right BKA stump - 4 x 3 x 2 cm. I used AmnioFill Placental Connective Tissue Powder, 250 mg. Catalog Number - [id number]. Lot Number - [id number]. Expiration - September 08, 2025. circulation crew leader: None Type of Anesthesia: General Specimen's removed: 1. Nonhealing painful nonhealing infected diabetic ulcer anterior aspect right BKA stump soft tissue to Pathology and Microbiology. 2. Nonhealing painful nonhealing infected diabetic ulcer anterior aspect right BKA stump bone to Pathology and Microbiology. Drains: None. Estimated Blood Loss (mL): 25 ml. Description of Procedure: Patient was taken to OR in supine position and was placed under general anesthesia.? The right BKA stump was prepped and draped in the usual fashion.? SCD was placed for DVT prophylaxis on the left leg.? Perioperative antibiotics were given intravenously.? Using xylocaine with epinephrine, the ulcer on the anterior aspect right BKA stump was infiltrated.? After waiting 5 minutes for the anesthetic to take effect, I proceeded with surgical preparation of the ulcer with excisional debridement down through scar tissue until bone was reached.? Besides the ulcer, the entire vertical incision was included in the debridement to make sure there are no other sources of infection. The bone in the depth of the ulcer was irregularly shaped with jagged edges which is suspicious for osteomyelitis.? A partial ostectomy of the tibia was done using rongeurs to evaluate for osteomyelitis.? The bone was soft indicative of osteomyelitis. I sampled several areas of bone in the area of the ulcer and more proximally. After these pieces of bone were obtained, it was noted that there was a small opening in the bone on the medial aspect with communication with the intramedullary canal distally in the area of the ulcer. The bone in this area was quite thin. I made the opening a little larger with excision of some more bone to make the wound care easier. A piece of bone on the posterior aspect of the tibia was also taken for Pathology and Microbiology. Half the soft tissue and half the bone was sent to Pathology for analysis to rule out carcinoma and osteomyelitis. Half the soft tissue and half the bone was sent to Microbiology for culture. A positive culture will necessitate antibiotic therapy. If osteomyelitis is present, then a PICC line would be placed for intermission coordinator IV antibiotics. The patient will not be able to use her prosthesis for a long time until the infection is controlled and a bone graft is placed and has healed. With her history of poor diabetic control with a HgbA1c of 10.9 and being a smoker, this will be an uphill shore. If unable to heal the bone and strengthen the bone, then the only way she would ambulate at that point would be with a revision AKA. Will discuss these findings with the patient postoperatively. A rasp was used to smooth out the bony edges.? The wound was irrigated with saline.? Hemostasis was obtained with electrocautery.? To help with the healing process, I placed AmnioFill placental connective tissue powder into the depth of the ulcer in the area of the exposed intramedullary canal. I secured a piece of Mepitel nonadherent dressing over the AmnioFill and secure it to the skin edges with 3-0 Vicryl interrupted sutures. This will help keep the AmnioFill in place since a VAC will be placed postoperatively. Without the Mepitel, more of the AmnioFill would be sucked away in the early days. I then placed Kerlix gauze with Betadine over the Mepitel followed by dry Kerlix gauze and ABD pads followed by a compression JOSE D wrap. Patient tolerated the procedure well and was sent to PACU in satisfactory condition. Patient will be sent upstairs for continued postop care. Tomorrow the VAC will be placed. She will be discharged when tolerating po analgesia. After discharge will followup at the Wound Center. Grafts/Implants Used: AmnioFill placental connective tissue powder. Complications None. Admit VTE Documentation VTE Present on Admission: No VTE Mechan Device Prophylaxis: SCD's VTE Pharm Prophylaxis ordered?: No Surgery Charges CPT - 13863 ICD-10 - T87.89, M79.604, Z87.39, E11.9, R73.09, I73.9, Z86.14, Z89.511, F17.200 15127 T87.89, Z87.39, M79.604, E11.9, R73.09, I73.9, Z86.14, Z89.511, F17.200
[2021-01-03 21:26] LABS: Bedside Glucose 309 mg/dL (70-110)
[2021-01-04 02:00] VITALS: BP 122/69; PULSE 72; RESP 16; TEMP 36.8; O2SAT 98
[2021-01-04] MEDS: HYDROmorphone 1 MG/ML Syringe IV ×2 (02:10→05:58)
[2021-01-04] MEDS: 0.9% Saline Lock 10 ML Syringe IV ×2 (02:11→05:57)
[2021-01-04] MEDS: Pregabalin 50 MG Capsule 200 MG PO ×2 (05:56→14:39)
[2021-01-04 06:16] LABS: Bedside Glucose 235 mg/dL (70-110)
[2021-01-04] MEDS: oxyCODONE 5 MG Tablet PO ×2 (08:03→12:14)
[2021-01-04] MEDS: Insulin Lispro 100 UNIT/ML INSULN.PEN SC ×2 (08:10→12:48)
[2021-01-04] MEDS: Aspirin 81 MG TAB.CHEW PO (08:10)
[2021-01-04] MEDS: Juven (unflavored) Packet 1 PACKET PO (08:14)
--- NOTE | 2021-01-04 08:27 | NURSING ---
Pt states the pain slightly decreased with lowering the VAC pressure to 100mmHg suction last evening per Dr Guadarrama order.
--- NOTE | 2021-01-04 09:46 | CASEMGMT ---
ADIN HALEY called and faxed updated clinical information to [facility]. [facility] is able to accept the patient with planned start of care for 01/05/21. ADIN HALEY updated the patient regarding confirmed HHC wiht [facility]. Patient voiced understanding.
[2021-01-04] MEDS: HYDROmorphone 2 MG TABLET PO ×2 (10:10→14:31)
[2021-01-04] MEDS: Clopidogrel Bisulfate 75 MG Tablet PO (10:12)
[2021-01-04] MEDS: Docusate Sodium 100 MG Capsule PO (10:13)
[2021-01-04] MEDS: Baclofen 10 MG Tablet PO (10:13)
[2021-01-04 10:17] VITALS: BP 148/68; PULSE 71; RESP 16; TEMP 36.7; O2SAT 94
--- NOTE | 2021-01-04 11:22 | CASEMGMT ---
ADIN HALEY updated that patient will be going on IV ATBs at discharge. ADIN HALEY spoke with Lacey Hogue MAINTENANCE SHOP CLERK and confirmed IV ATBs at discharge. Awaiting script and PICC Line. ADIN HALEY in to discuss IV ATB at discharge with patient. Patient states she has had IV ATBs in the past and her and her daughter are teachable. ADIN HALEY updated [facility] and they are still able to accept patient. Patient would like I for infusion company as she has had them in the past. ADIN HALEY sent referral to [facility]. CM will continue to follow this patient and plan for a safe discharge.
[2021-01-04 12:21] LABS: Bedside Glucose 322 mg/dL (70-110)
--- NOTE | 2021-01-04 13:08 | PN.SURG_ITS ---
Subjective Subjective: Patient sitting up in bed. She states that her pain is controlled with the Dilaudid tablets. It just doesn't always last for 4 hours. Objective Data Objective Data Vital Signs: Vital Signs Temp Pulse Resp BP Pulse Ox 98.0 F 71 16 148/68 H 94 01/04/21 10:17 01/04/21 10:17 01/04/21 10:17 01/04/21 10:17 01/04/21 10:17 Oxygen Flow Rate (L/min) 2 Oxygen Delivery Method Room Air Weight: 240 lb 4.862 oz Body Mass Index (BMI) 36.5 Finger Stick Blood Glucose 125 Intake & Output: Intake and Output for Last 24 Hours 01/02/21 01/03/21 01/04/21 23:59 23:59 23:59 Intake Total 1423 / 1423 4062 / 4062 375 / 375 Output Total 0 / 1200 3600 / 5500 3900 / 3900 Balance 1423 / 223 462 / -1438 -3525 / -3525 Lab / Micro Data Result Diagrams: 01/03/21 06:35 01/03/21 06:35 Labs: Laboratory Results - last 24 hr 01/03/21 01/03/21 01/03/21 16:56 17:08 21:12 Vancomycin Trough 18.5 H POC Glucose 299 H 309 H 01/04/21 01/04/21 06:07 12:16 Vancomycin Trough POC Glucose 235 H 322 H Micro: Microbiology 01/02/21 Unknown Bone - Leg, Right Gram Stain - Final 01/02/21 Unknown Bone - Leg, Right Wound Culture - Preliminary 01/02/21 Unknown Bone - Leg, Right Anaerobic Culture - Preliminary No anaerobic bacteria isolated. 01/02/21 Unknown Tissue Ulcer - Leg Gram Stain - Final 01/02/21 Unknown Tissue Ulcer - Leg Wound Culture - Preliminary Gram positive michael 01/02/21 Unknown Tissue Ulcer - Leg Anaerobic Culture - Preliminary No anaerobic bacteria isolated. 01/01/21 13:14 Interface Orders SARS-CoV-2 Antigen (Rapid) - Final Physical Exam Const oriented x3 Constitutional Narrative: She appears to have discomfort due to pain in her right stump. Resp normal respiratory effort Cardio regular rate GI normal to inspection, nondistended, normoactive bowel sounds Extremity full ROM Extremity Narrative: Right stump with wound VAC in place. JOSE D wrap for compression. 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 Code(s): T87.89 - Other complications of amputation stump; L97.919 - Non-pressure chronic ulcer of unspecified part of right lower leg with unspecified severity (2) DM2 (diabetes mellitus, type 2): Status: Chronic Code(s): E11.9 - Type 2 diabetes mellitus without complications Qualifiers: Diabetes mellitus residential insulin use: with residential use Diabetes mellitus complication detail: with other skin complication (3) PVD (peripheral vascular disease): Status: Chronic Code(s): I73.9 - Peripheral vascular disease, unspecified (4) History of osteomyelitis: Status: Chronic Code(s): Z87.39 - Personal history of other diseases of the musculoskeletal system and connective tissue (5) Tobacco abuse: Status: Chronic Code(s): Z72.0 - Tobacco use (6) Hemoglobin A1C greater than 9%, indicating poor diabetic control: Status: Acute Code(s): R73.09 - Other abnormal glucose (7) History of methicillin resistant staphylococcus aureus (MRSA): Status: Chronic Code(s): Z86.14 - Personal history of Methicillin resistant Staphylococcus aureus infection Plan: Right stump wound with wound VAC dressing in place at 125 mmHg, due to having Amniofill. Will keep at this amount of pressure until she is seen at the wound center. Home health can change 3 times per week. Preliminary cultures for soft tissue are positive for Gram positive rods. Bone cultures are preliminary.? Will send her home today after PICC line placement. She will have Vancomycin IV at home. She is ok to be discharged today after her 2 pm dose of Vanc. She may skip her 10 pm dose of Vanc and home health can start her care/education of infusing Vancomycin tomorrow, 01/05/21, at 9 am. Pharmacy is to dose Vanc. Pain controlled with oral Dilaudid. Will send her home on Dilaudid. She may need Valium for muscle spasms with the wound VAC in place. Prealbumin 14.0.? Encourage increase in protein intake. Follow up at the wound center after discharge. She can be seen on Friday January 15, 2021.
--- NOTE | 2021-01-04 13:25 | CASEMGMT ---
ADIN HALEY received update from [facility] and lola is covered at 100% for ATB. ADIN HALEY clarified start of care with surgeon. Per Dr. Guadarrama patient is okay to discharge at 2PM today and start IV ATBs at home 01/05 at 0900. ADIN HALEY called and updated Blayne at [facility] with planned start of care. ADIN HALEY will continue to follow this patient and plan for a safe discharge.
--- NOTE | 2021-01-04 13:40 | PCM.DC ---
Discharge Instructions Outpatient Procedure Reason For Visit: RT BKA STUMP I&D DEBRIDEMENT PARTIAL OSTECTOMY Diet Discharge Diet: Carb Control Diet and - (Encourage increase protein (meat, cheese, egg, dairy, legumes)) Activity Discharge Activity: Return to Normal Activity, May Not Shower (Can not get wound wet at this time, until adaptic is removed at the wound center) and Use Crutches (May use crutches or knee walker) May resume sexual activity in: No Restrictions Dressing / Incision Call your doctor if your incision/area has: Continuous Slow Oozing, Sudden Increased Bleeding, Increased Pain/ Swelling, Increased Redness, Foul Smelling Discharge and Swelling at the incision site Call your doctor if you observe: Fever of 101 or Higher, Inability to urinate, Inability to have a bowel movement, Shortness of breath, Chest pain, Calf discomfort and Uncontrolled pain Change Dressing in: 1 day (Home health can change dressing 01/05/21. They are not to get the adaptic wet with soap and water. VAC changes 3 times per week, VAC at 125mmHg) Cleanse incision/area with: Do not get Incision Wet (May wash skin around the wound, do not get wound wet until adaptic is removed. VAC dressing changed 3 x per week. VAC at 125 mmHg) Follow Up Care Please Follow Up With: Lacey Hogue CNP When: Wound center on Friday01/15/21. Test Results: Test results from this visit will be discussed in further detail at your follow-up appointment, if applicable. Discharge Plan Admission Admit Date/Time: 01/02/21 14:19 Attending Provider: Grzegorz Guadarrama Primary Care Provider: Sasha Rodriguez Discharge Orders/Prescriptions Prescriptions: New vancomycin in 0.9 % sodium chl 1.25 gram/250 mL solution 1.25 g IV Q8H 40 Days Qty: 67004 RF: 0 hydromorphone 2 mg Tablet 2 mg PO Q4H PRN PRN (Reason: Pain Score 6-10) 7 Days Qty: 40 RF: 0 diazepam 5 mg Tablet 5 mg PO Q6H PRN PRN (Reason: Spasms) 7 Days Qty: 30 RF: 0 Continued pregabalin [Lyrica] 150 mg capsule 200 mg PO TID RF: 0 baclofen 10 mg tablet 10 mg PO BID RF: 0 fluticasone propionate [Flonase Allergy Relief] 50 mcg/actuation spray,suspension 2 spray intranasal DAILY Qty: 15.8 RF: 1 quetiapine [Seroquel] 25 mg tablet 25 mg PO BID Qty: 60 RF: 2 oxybutynin chloride 10 mg tablet extended release 24hr 1 ea PO DAILY RF: 0 Lantus Solostar U-100 Insulin 100 unit/mL (3 mL) insulin pen 65 unit SC QPM 90 Days Qty: 58.5 RF: 3 Humalog U-100 Insulin 100 unit/mL cartridge 20 unit SC QAC 90 Days Qty: 54 RF: 2 aspirin 81 mg tablet,delayed release (DR/EC) 81 mg PO DAILY Qty: 90 RF: 3 clopidogrel 75 mg tablet 75 mg PO DAILY Qty: 90 RF: 3 duloxetine 30 mg capsule,delayed release(DR/EC) 60 mg PO BID Qty: 180 RF: 1 Trulicity 1.5 mg/0.5 mL pen injector 1.5 mg SC QWEEK Qty: 2 RF: 3 pantoprazole 40 mg tablet,delayed release (DR/EC) See Rx Instructions .ROUTE .COMPLEX Qty: 90 RF: 2 Adult Probiotic 3 billion cell capsule 3,000 mmu cells PO DAILY Qty: 60 RF: 3 (DME) pen needle, diabetic [BD Ultra-Fine Mini Pen Needle] 31 gauge x 3/16 needle See Rx Instructions .ROUTE .MEDSUPPLY Qty: 100 RF: 3 Discontinued oxycodone-acetaminophen [Percocet] 5-325 mg tablet 1 tab PO .q 12 hrs PRN (Reason: pain) RF: 0 Other Ambulatory Orders: 12 Lead EKG (Routine) Location: None Selected Ordered By: Dr. Fahad Daley Consult: Nutrition/Dietitian (Routine) Location: None Selected Ordered By: Lacey Hogue RESOURCE PARAPROFESSIONAL Referrals: Sasha Rodriguez MD [Primary Care Provider] -
--- NOTE | 2021-01-04 14:35 | CASEMGMT ---
ADIN HALEY faxed picc line information to [facility]. ADIN HALEY also faxed discharge instructions to [facility]. ADIN HALEY called Bhavna at [facility] to confirm discharge and to deliver IV ATBs.
[2021-01-04 14:47] VITALS: BP 134/73; PULSE 81; RESP 18; TEMP 36.8; O2SAT 97
--- NOTE | 2021-01-04 14:48 | NURSING ---
Pt switched over to the home VAC. Proof of delivery signed and faxed to [facility]. Pt denies questions with the wound VAC. pt has had the home VAC numerous times in the past. will fax discharge summary to [facility] when available.
--- NOTE | 2021-01-04 16:40 | NURSING ---
1615 - this nurse in another pts room.. pt would not wait for d/c papers, pt unhooked herself from her IV. PICC line was NOT flushed with saline or heparin .unsure if a green cap was placed on the end of the PICC line. block bolter mule operator Layla went in to talk with pt to do d/c papers pts daughter got a wheel chair and placed her mom in it and was leaving the floor when Layla was able to catch up to her pt grabbed d/c papers out of her hand and left the floor.
--- NOTE | 2021-01-04 18:03 | NURSING ---
call placed to pt. upon empyting pts room after she left. this nursed noted that when the pt disconnected herself from the IV tubing the pt disconnected the blue/purple cap of the PICC line. Informed pt that she needs to come to the ER to get a cap placed back on the PICC line to help prevent infection. pt states fine
== END 2021-01-04 16:17 | disposition home health service (06) ==
LOC: SDC 14:33 → MS3 14:33
PROVIDERS: Anesthesiology; Admitting Provider Surgery; PCP Internal Medicine; Referring Provider Surgery; Visit Provider Surgery
PROC: (CPT 15002; principal; 2021-01-02 10:40)
DX: T87.43 Infection of amputation stump, right lower extremity (principal); Y83.5 Amputation of limb(s) as the cause of abnormal reaction of the patient, or of later complication, without mention of misadventure at the time of the procedure; E11.622 Type 2 diabetes mellitus with other skin ulcer; E78.5 Hyperlipidemia, unspecified; I10 Essential (primary) hypertension; I73.00 Raynaud's syndrome without gangrene; F41.9 Anxiety disorder, unspecified; E11.40 Type 2 diabetes mellitus with diabetic neuropathy, unspecified; E11.51 Type 2 diabetes mellitus with diabetic peripheral angiopathy without gangrene; F17.200 Nicotine dependence, unspecified, uncomplicated; G89.29 Other chronic pain; Z86.14 Personal history of Methicillin resistant Staphylococcus aureus infection; Z79.4 Long term (current) use of insulin; Z79.82 Long term (current) use of aspirin; Z79.899 Other long term (current) drug therapy; Z79.02 Long term (current) use of antithrombotics/antiplatelets; Z93.3 Colostomy status; Z86.718 Personal history of other venous thrombosis and embolism
CPT/HCPCS: 01480; 15002; 27640; 36415; 36569; 80048; 80202; 82962; 83036; 84134; 85025; 87070; 87075; 87077; 87102; 87176; 87205; 87206; 87426; 88304; 88305; 88307; 88311; 93005; 96365; 96366; 96367; 96375; 96376; 97802; 99218; 99251; J7050; J7120; A4216; G0378; G0379; G0463; J2405

== ENCOUNTER 2021-01-29 13:30 | Outpatient (RCR) | payer MEDICARE, MEDICAID, SELFPAY ==
[2020-11-06 00:16] VITALS: BP 126/75; PULSE 102; RESP 16; TEMP 36.1; O2SAT 99
[2021-01-02 14:26] VITALS: BMI 36.5
[2021-01-15 10:17] VITALS: BP 127/76; PULSE 106; RESP 18; TEMP 36.6; BMI 36.5
--- NOTE | 2021-01-15 11:12 | WC ---
Patient forgot wound vac supplies. States her home health nurse will come and start it shortly after leaving center.
--- NOTE | 2021-01-15 12:25 | PCM.WC.PN ---
History of Present Illness Date of Service: 01/15/21 Chief Complaint: Nohealing infected diabetic ulcer anterior aspect right BKA stump. History of Wound: Surgery 01/02/21 - Surgical preparation anterior aspect right BKA stump with incision and drainage and excisional debridement nonhealing painful infected diabetic ulcer (12 cm2) and partial ostectomy tibia for osteomyelitis. Operative tissue cultures positive for Corynebacterium amycolatum, Anaerobic cocci and Fingoldia magna. Operative bone cultures positive for Anaerobic cocci and Fingoldia magna. Pathology of the bone was negative for acute osteomyelitis. She was treated with IV Vanc that was started 01/02/21 and Flagyl. PICC line pulled today, 01/15/21. Wound care - wound VAC at 150 mmHg. Surgery 12/07/19 - 1. Surgical preparation right BKA stump with incision and drainage and excisional debridement infected hematoma (19.25 cm2). 2. Partial ostectomy tibia for osteomyelitis. Wound care- Finished Epicord and Epifix. She has been using Regranex daily. She is complaining of increased pain at the ulcer site and states that she had drainage that she thought looked infected. Wound cultures obtained on 09/11/20 and were positive for Entercoccus faecalis and Anaerobic cocci. She has been taking Augmentin and a probiotic. Operative bone culture and tissue culture from 12/07/19 showed Staphylococcus aureus. She was treated with Doxycycline. Pathology was negative for osteomyelitis. Pathology from 06/26 was positive for osteomyelitis. Her HgA1c from 12/07/19 was 10.5. Prealbumin from 12/07/19 was 14. Another wound culture was obtained on 02/21/20. It showed Enterococcus faecalis. She was started on Augmentin and has finished them. She santiago another wound culture on 07/11/20. It showed Anaerococcus prevoti and Anaerobic cocci. She was placed on Augmentin and has finished them. An MRI was done on 10/13/20. It showed subtle area of abnormal signal within the distal tibial stump anteriorly with overlying soft tissue thinning and edema. This may represent early osteomyelitis. I do not see a definite abscess. It may be of benefit to repeat the study with intravenous contrast for further evaluation if clinically indicated. She denies fever today and states her appetite is ok. Progress of Wound: Stable. Very painful to palpation. 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 Increase VAC to 150 mm Hg, now that the adaptic that was sutured in was removed. Wash ulcer with soap and water with VAC dressing changes. Stop Vancomycin. Pulled PICC line today, 01/15/21. Finish Flagyl. Encouraged increased protein intake and Vitamin C intake. Follow up 2 weeks. Charges/Coding Procedures Integumentary [id number]: [id number] Global Visit Physical Exam Const alert and oriented x3 HEENT normocephalic Eyes PERRL Resp normal respiratory effort and clear to auscultation bilaterally Cardio regular rate and regular rhythm GI non-tender Palpation: soft Extremity normal capillary refill General Extremity: edema Skin Wound Narrative: Right BKA ulcer with adaptic sutured in. The adaptic was removed. Ulcer is pink. Bone is exposed. Neuro CN's II-XII intact bilaterally Psych Appearance: grossly normal Debridement Note Debridement Note Post-Debridement Measurements and Additional Note: Post-Debridement Measurements/Treatment - Nurse 1 - General Ulcer Assessment Start: 01/15/21 10:17 Freq: Status: Active Protocol: SOL.HEMAL Activity Type Activity Date Activity User E-Sign Co-Sign Detail Recorded Client Recorded Date Recorded By Document 01/15/21 10:17 DL [id number] 01/15/21 10:27 DL 01/15/21 10:17 - Today's Visit Information Type of service Follow-up Visit (Physician/WOOD FLOOR REFINISHER ) Arrival Mode Wheelchair Transfer Assistance None Patient Identification Verified (Name & Yes ) Patient Requires Transmission-Based No Precautions Safety Precautions Fall Prevention Height and Weight Body Mass Index (BMI) 36.5 BMI Classification Obese Vital Signs Temperature (97.8 F-99.1 F) 97.9 F Temperature Source Temporal Pulse Rate (60-100) 106 H Pulse Location Monitor Respiratory Rate (12-18) 18 Respiratory rate source Observation Blood Pressure (90/60-120/80) 127/76 H Blood Pressure Mean (mm Hg) 93 Source Monitor Comment Post Op/ Mesh and sutures intact History Since Last Visit- (Skip if this is Patient's initial visit) Have you changed medications since your No last visit? Any new allergies or adverse reactions No Had a fall/change in ADL's that may No increase risk of falls Signs or symptoms of abuse and/or No neglect since last visit Have you been in the hospital since your Yes last visit? Has dressing in place as prescribed Yes Has compression in place as prescribed Yes Has offloadiing in place as prescribed Yes Experienced any changes in pain level or No management Right Footwear No Footwear Pain Scale: 0-10 Numeric Is Patient Pain Free? Yes WC - Nurse 1 - General Ulcer Measurement Start: 01/15/21 10:17 Freq: Status: Active Protocol: Activity Type Activity Date Activity User E-Sign Co-Sign Detail Recorded Client Recorded Date Recorded By Document 01/15/21 10:17 MARLON [id number] 01/15/21 10:27 DL 01/15/21 10:17 Wound Center Nurse 1 7-right BKA/ Post op -Current Size (cm) - Length 3.5 -Current Size (cm) - Width 3.5 -Current Size (cm) - Depth 0.1 -Total Square Cm 12.25 -Photo Taken Yes -Exudate Amt Medium -Exudate Type Serosanguineous -Wound Margin Distinct, Outline Attached -Texture (Love-wound Skin Appearance) Localized Edema ,Scarring -Moisture (Love-wound Skin Appearance) No Abnormality -Color (Love-wound Skin Appearance) No Abnormality -Temperature (Love-wound Skin No Abnormality Appearance) (Pt Warm) -Tenderness on Palpation (Love-wound No Skin Appearance) -Ulcer Cleansing Wound Cleanser -Foul Odor after Cleansing No WC - Nurse 2 - General Ulcer CM Notes Start: 01/15/21 10:17 Freq: Status: Active Protocol: Activity Type Activity Date Activity User E-Sign Co-Sign Detail Recorded Client Recorded Date Recorded By Document 01/15/21 10:43 JF [id number] 01/15/21 10:53 JF Edit Result 01/15/21 10:43 JF (1) [id number] 01/15/21 10:54 JF (1) 7-right BKA/ Post op - Post Debridement (cm) - Length => 4 - Post Debridement (cm) - Width => 3.8 - Post Debridement (cm) - Depth => 0.7 - Total Square (Post) (cm) => 15.2 - Area of Debridement (cm) - Length => 4 - Area of Debridement (cm) - Width => 3.8 - Total Square (Area) (cm) => 15.2 01/15/21 10:43 Wound Center Nurse 2 -Correct Patient No -Correct Side, Site, Position No -Correct Procedure No -Procedure Performed No -Post Debridement (cm) - Length 4 -Post Debridement (cm) - Width 3.8 -Post Debridement (cm) - Depth 0.7 -Total Square (Post) (cm) 15.2 -Area of Debridement (cm) - Length 4 -Area of Debridement (cm) - Width 3.8 -Total Square (Area) (cm) 15.2 -Wound/Ulcer Outcome Not Healed Pain Scale: 0-10 Numeric Is Patient Pain Free? Yes WC - Nurse 3 - General Ulcer D/C NN Start: 01/15/21 10:17 Freq: Status: Active Protocol: Activity Type Activity Date Activity User E-Sign Co-Sign Detail Recorded Client Recorded Date Recorded By Document 01/15/21 11:11 MS [id number] 01/15/21 11:12 MS 01/15/21 11:11 Wound Care Nurse 3 7-right BKA/ Post op -Ulcer Cleansing Rinsed/ Irrigated with Saline -Foul Odor after Cleansing No -Primary Dressing Covered/Secured with Dry Gauze & Roll Gauze, Secured with Tape Wound debrided: BKA ulcer Laterality: Right Type of Debridement: Excisional debridement Anesthesia Used: 5% Lidocaine Gel Depth: Down to and including healthy tissue, in the subcutaneous layer, to muscle and to bone Percentage of wound debrided: 100 Instrument Used: 5mm curette Tissue Removed: Adaptic removed, subcutaneous tissue and slough Severity: Fat Layer Exposed Amount of bleeding with debridement: Mild Bleeding Controlled with: Pressure Patient tolerated procedure: Patient tolerated procedure well
[2021-01-29 13:39] VITALS: BP 133/97; PULSE 112; RESP 16; BMI 36.5
--- NOTE | 2021-01-29 14:34 | PN.PCM_ITS ---
History of Present Illness Date of Service: 01/29/21 Chief Complaint: Nohealing infected diabetic ulcer anterior aspect right BKA stump. History of Wound: Surgery 01/02/21 - Surgical preparation anterior aspect right BKA stump with incision and drainage and excisional debridement nonhealing painful infected diabetic ulcer (12 cm2) and partial ostectomy tibia for osteomyelitis. Operative tissue cultures positive for Corynebacterium amycolatum, Anaerobic cocci and Fingoldia magna. Operative bone cultures positive for Anaerobic cocci and Fingoldia magna. Pathology of the bone was negative for acute osteomyelitis. She was treated with IV Vanc that was started 01/02/21 and Flagyl. PICC line pulled 01/15/21. Wound care - wound VAC at 150 mmHg. Surgery 12/07/19 - 1. Surgical preparation right BKA stump with incision and drainage and excisional debridement infected hematoma (19.25 cm2). 2. Partial ostectomy tibia for osteomyelitis. Wound care- Finished Epicord and Epifix. She has been using Regranex daily. She is complaining of increased pain at the ulcer site and states that she had drainage that she thought looked infected. Wound cultures obtained on 09/11/20 and were positive for Entercoccus faecalis and Anaerobic cocci. She has been taking Augmentin and a probiotic. Operative bone culture and tissue culture from 12/07/19 showed Staphylococcus aureus. She was treated with Doxycycline. Pathology was negative for osteomyelitis. Pathology from 06/26 was positive for osteomyelitis. Her HgA1c from 12/07/19 was 10.5. Prealbumin from 12/07/19 was 14. Another wound culture was obtained on 02/21/20. It showed Enterococcus faecalis. She was started on Augmentin and has finished them. She santiago another wound culture on 07/11/20. It showed Anaerococcus prevoti and Anaerobic cocci. She was placed on Augmentin and has finished them. An MRI was done on 10/13/20. It showed subtle area of abnormal signal within the distal tibial stump anteriorly with overlying soft tissue thinning and edema. This may represent early osteomyelitis. I do not see a definite abscess. It may be of benefit to repeat the study with intravenous contrast for further evaluation if clinically indicated. She denies fever today and states her appetite is ok. Progress of Wound: Stable. Very painful to palpation. Objective Data Objective Data Vital Signs: Vital Signs Temp Pulse Resp BP Pulse Ox 97.9 F 112 H 16 133/97 H 99 01/15/21 10:17 01/29/21 13:39 01/29/21 13:39 01/29/21 13:39 11/06/20 00:16 Oxygen Delivery Method Room Air Weight: 203 lb Body Mass Index (BMI) 36.5 Charges/Coding Procedures Integumentary 111xxx-113xx: [id number] Global Visit Physical Exam Const alert and oriented x3 General Appearance: cooperative HEENT normocephalic Head and Scalp: atraumatic Eyes PERRL Resp normal respiratory effort Cardio regular rate GI non-tender Palpation: soft Extremity normal capillary refill Skin Wound Narrative: Right BKA ulcer with bone exposure. Ulcer is extremely tender to light touch. Neuro CN's II-XII intact bilaterally Psych Appearance: grossly normal Debridement Note Debridement Note Post-Debridement Measurements and Additional Note: Post-Debridement Measurements/Treatment - Nurse 1 - General Ulcer Assessment Start: 01/15/21 10:17 Freq: Status: Active Protocol: KRISTIE Activity Type Activity Date Activity User E-Sign Co-Sign Detail Recorded Client Recorded Date Recorded By Document 01/15/21 10:17 DL [id number] 01/15/21 10:27 DL Document 01/29/21 13:39 [facility] [id number] 01/29/21 13:52 BM 01/15/21 01/29/21 10:17 13:39 - Today's Visit Information Type of service Follow-up Visit Follow-up Visit (Physician/PROJECT MANAGEMENT CONSULTANT (Physician/PROJECT MANAGEMENT CONSULTANT ) ) Arrival Mode Wheelchair Ambulatory, Walker Arrival Mode (Other) knee walker Transfer Assistance None None Patient Identification Verified (Name & Yes Yes ) Patient Requires Transmission-Based No No Precautions Safety Precautions Fall Prevention Height and Weight Body Mass Index (BMI) 36.5 36.5 BMI Classification Obese Obese Vital Signs Temperature (97.8 F-99.1 F) 97.9 F Temperature Source Temporal Pulse Rate (60-100) 106 H 112 H Pulse Location Monitor Monitor Respiratory Rate (12-18) 18 16 Respiratory rate source Observation Observation Oxygen Delivery Method Room Air Blood Pressure (90/60-120/80) 127/76 H 133/97 H Blood Pressure Mean (mm Hg) 93 109 Source Monitor Monitor Position Sitting Blood Pressure Location Right Arm Comment Post Op/ Mesh and sutures intact History Since Last Visit- (Skip if this is Patient's initial visit) Have you changed medications since your No No last visit? Any new allergies or adverse reactions No No Had a fall/change in ADL's that may No Yes increase risk of falls Signs or symptoms of abuse and/or No No neglect since last visit Have you been in the hospital since your Yes No last visit? Has dressing in place as prescribed Yes Yes Has compression in place as prescribed Yes N/A Has offloadiing in place as prescribed Yes N/A Experienced any changes in pain level or No No management Right Footwear No Footwear Pain Scale: 0-10 Numeric Is Patient Pain Free? Yes No WC - Nurse 1 - General Ulcer Measurement Start: 01/15/21 10:17 Freq: Status: Active Protocol: Activity Type Activity Date Activity User E-Sign Co-Sign Detail Recorded Client Recorded Date Recorded By Document 01/15/21 10:17 DL [id number] 01/15/21 10:27 DL Document 01/29/21 13:39 [facility] [id number] 01/29/21 13:52 [facility] 01/15/21 01/29/21 10:17 13:39 Wound Center Nurse 1 #9 BKA POST OP -Combined with other wound No -Current Size (cm) - Length 3.5 4 -Current Size (cm) - Width 3.5 3.6 -Current Size (cm) - Depth 0.1 1.5 -Total Square Cm 12.25 14.4 -Photo Taken Yes No -Epithelialization None Present -Tunneling No -Undermining/Tunneling No -Circular Undermining No -Exudate Amt Medium Small -Exudate Type Serosanguineous Sanguineous -Wound Margin Distinct, Distinct, Outline Outline Attached Attached -Granulation Amt Medium (34-66%) -Granulation Quality [place] -Slough/Fibrin Yes -Necrosis Amt Medium (34-66%) -Necrotic Tissue Type Adherent Slough -Structure Exposed Bone -Texture (Love-wound Skin Appearance) Localized Edema Assessed, ,Scarring Scarring -Moisture (Love-wound Skin Appearance) No Abnormality Assessed -Color (Love-wound Skin Appearance) No Abnormality Assessed -Temperature (Love-wound Skin No Abnormality No Abnormality Appearance) (Pt Warm) (Pt Warm) -Tenderness on Palpation (Love-wound No Yes Skin Appearance) -Ulcer Cleansing Wound Cleanser soapy water -Foul Odor after Cleansing No No -Anesthetic Used 5% Lidocaine Gel - Nurse 2 - General Ulcer CM Notes Start: 01/15/21 10:17 Freq: Status: Active Protocol: Activity Type Activity Date Activity User E-Sign Co-Sign Detail Recorded Client Recorded Date Recorded By Document 01/15/21 10:43 SHAYNA [id number] 01/15/21 10:53 JF Edit Result 01/15/21 10:43 JF (1) [id number] 01/15/21 10:54 JF Document 01/29/21 14:04 JF [id number] 01/29/21 14:08 (1) #9 BKA POST OP - Post Debridement (cm) - Length => 4 - Post Debridement (cm) - Width => 3.8 - Post Debridement (cm) - Depth => 0.7 - Total Square (Post) (cm) => 15.2 - Area of Debridement (cm) - Length => 4 - Area of Debridement (cm) - Width => 3.8 - Total Square (Area) (cm) => 15.2 01/15/21 01/29/21 10:43 14:04 Wound Center Nurse 2 #9 BKA POST OP -Time 14:04 -Correct Patient No Yes -Correct Side, Site, Position No Yes -Correct Procedure No Yes -Procedure Performed No Yes -Type of Procedure Debridement -Clinical Debridement Subcutaneous -Tissue Removed Muscle,Fascia -Post Debridement (cm) - Length 4 4.2 -Post Debridement (cm) - Width 3.8 4 -Post Debridement (cm) - Depth 0.7 0.5 -Total Square (Post) (cm) 15.2 16.8 -Area of Debridement (cm) - Length 4 4.2 -Area of Debridement (cm) - Width 3.8 4 -Total Square (Area) (cm) 15.2 16.8 -Tunneling No -Undermining/Tunneling No -Circular Undermining No -Wound/Ulcer Outcome Not Healed Not Healed -Ulcer Cleansing Rinsed/ Irrigated with Saline -Foul Odor after Cleansing No -Bioengineered Tissue No -Bleeding Controlled with Pressure -Offloading No -Treatment Response Procedure Tolerated Well -Debridement - Subq, 1st 20sq cm No -Debridement - Muscle / Fascia, 1st Yes 20sq cm Pain Scale: 0-10 Numeric Is Patient Pain Free? Yes Yes - Nurse 3 - General Ulcer D/C NN Start: 01/15/21 10:17 Freq: Status: Active Protocol: Activity Type Activity Date Activity User E-Sign Co-Sign Detail Recorded Client Recorded Date Recorded By Document 01/15/21 11:11 MS [id number] 01/15/21 11:12 MS Edit Result 01/15/21 11:11 MS (1) [id number] 01/16/21 07:18 PL Document 01/29/21 14:18 BMF [id number] 01/29/21 14:18 BMF (1) #9 BKA POST OP - Negative Pressure Wound Therapy => Continue - Setting (mmHg) => 150 - Negative Pressure is => Continuous - NPWT Application Charge ($) => NPWT </= 50 sq cm 01/15/21 01/29/21 11:11 14:18 Wound Care Nurse 3 #9 BKA POST OP -Ulcer Cleansing Rinsed/ Rinsed/ Irrigated with Irrigated with Saline Saline -Foul Odor after Cleansing No No -Negative Pressure Wound Therapy Continue -Setting (mmHg) 150 -Negative Pressure is Continuous -Primary Dressing Applied Other -Other Dressing moist to dry per d shanae warp splitter -Primary Dressing Covered/Secured with Dry Gauze & Roll Gauze, Secured with Tape -NPWT Application Charge ($) NPWT </= 50 sq cm Left -Compression Wrap Javier Wrap Pain Scale: 0-10 Numeric Is Patient Pain Free? Yes WC - Visit Discharge Discharge Condition Stable Ambulatory Status Wheelchair Transportation Private Auto Facility Type Home Health Wound debrided: Right BKA ulcer Laterality: Right Type of Debridement: Excisional debridement Anesthesia Used: 5% Lidocaine Gel Depth: Down to and including healthy tissue, in the subcutaneous layer and to muscle Percentage of wound debrided: 100 Instrument Used: 7mm curette Tissue Removed: Subcutaneous tissue and slough, with bone exposure 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 Increase VAC to 150 mm Hg.? Wash ulcer with soap and water with VAC dressing changes. Finished Vancomycin and Flagyl.Discussed that she needs to stop smoking and get her HgbA1C below 8 before she is able to have a bone graft to the hole in her right BKA bone. Encouraged increased protein intake and Vitamin C intake. Follow up 2 weeks, next week is a holiday. (2) Hemoglobin A1C greater than 9%, indicating poor diabetic control: CODE(S): R73.09 - Other abnormal glucose (3) History of osteomyelitis: CODE(S): Z87.39 - Personal history of other diseases of the musculoskeletal system and connective tissue (4) Acute post-operative pain: CODE(S): G89.18 - Other acute postprocedural pain
== END 2021-02-05 23:59 ==
LOC: WC 13:30
PROVIDERS: Family Provider Internal Medicine; PCP Internal Medicine; Referring Provider Surgery; Visit Provider Surgery
DX: E11.622 Type 2 diabetes mellitus with other skin ulcer (principal); T87.89 Other complications of amputation stump; Y83.5 Amputation of limb(s) as the cause of abnormal reaction of the patient, or of later complication, without mention of misadventure at the time of the procedure; T87.43 Infection of amputation stump, right lower extremity; Z86.14 Personal history of Methicillin resistant Staphylococcus aureus infection; L97.812 Non-pressure chronic ulcer of other part of right lower leg with fat layer exposed; F17.200 Nicotine dependence, unspecified, uncomplicated
CPT/HCPCS: 11043; 97605; 99213; G0463

== ENCOUNTER 2021-02-13 13:06 | Outpatient (RCR) | payer MEDICARE, SELFPAY ==
[2021-02-06 16:19] VITALS: BMI 36.5
--- NOTE | 2021-02-13 13:56 | HP.PTEVAL_ITS ---
Patient's Visit Information BERTRAM GARY is a 50 year old F referred to Physical Therapy by BRANT Marsh with a diagnosis of L BKA with complications. Date of Evaluation: 02/13/21 Physical Therapist: Fahad Wren, DPT, OCS, CSCS - Visit Plan Plan: Will get info to [employer] to start WC process. Face sheet, ins info to be faxed. - Subjective Herre for wheelchair eval. has wheelchair that she bought off [employer] for 2 years. She is an amputee adn will be in Wheelchair until Dr. hooper heals hole in bone that needs fixed. and cannot wear prosthesis until it is fixed. Has wound vac in and needs to mquit smoking and manage diabetes. R BKA is from blood clots ad has been amputated for 6 years. First 3 years walked with prosthesis adn then complicated with revision to clean out scar tissue and had problems ever since. Has had some infections in it and pinhole that will not heal. Has not walked in 1.5 years becasue she cannot put n prosthesis. Also is weak and will have home PT. Has needed wheel chair for longer distances, to get up and go bathroom at night and if legs hurt as these sometimes prevent her from using prosthesis at times. Transfers are done with daughters help if available. Can do it I in bathroom with wood pieces in [id number]. Has no walker. Pain is 4-5/10 end of stump. Worse wehn they change wound vac end of stump. Roll in bed I. Sits in Wheelchair for dinner at table. Not sure when will be able to wear prosthesis again. Needs bone graft. Drives with L foot. Gets into SUV herself. Someone has to help her put in and take out WC. Disability. Enjoys nature and woud like to hikes.rides. - Pain R knee adn stump Pain Intensity (Out of 10): 4 Pain Intensity Range: 0, 4, 6 - Objective Wound vac in place r stump BKA. UE AROM WFL and strength 4 to 4+/5 without myotomal problems. Ambulates with wh walker NWB R 5 steps today slow and labored. very tired adn needing to sit once gets to WC. is old looking and has keila rigged platform for R stump to keep knee extended but fits poorly. She can wheel it hereself but daughter wheels her out, Wh wheeled herself in 200 feet. Trasnfer stand and pvot on R to mat table I today. Sit to stand I with UE usage. Stand to sit I with UE. Posture is fair, can sit and reach and has decent trunk strength as she can roll n table slowly adn I. L knee 0-120 adn SLR easily. R knee -20 to 90 ROM. 0 degrees ext B with 3/5 strength hip ext adn 3+ abd B.90+ hip flexion B. HS mildly tight B. Hip flexion strength B 4-. Knee ext and flexion R 4/5 adn ankles R 4/5 with ROM WFL and to 0 DF. Biggest problems is stump are wound vac in place on distal wound, flexion contracture to almost 20 degrees L knee and hipext B to 0 only with flexors getting tight. Pt needs PT and is ahving it at [facility] [employer]. - Goals Goal 1:: Start process of getting patient in a new Wheelchair Goal Time Frame: 2-4 Weeks - Rehabilitation Potential Physical Therapy Diagnosis: diminished mobility due to complications from amputation Rehabilitation Potential: Fair - Anticipated Interventions Patient/Client Instruction: Educate patient on: Condition For the Purpose of:: To improve gait and locomotor functions Assistive Devices: Wheelchair For the Purpose of:: To improve ability of physical actions for home/community/work/leisure, To improve gait and locomotor functions Thank you for the opportunity to evaluate your patient. For Medicare and Medicare HMO plans, please review the plan of care and approve it. It will need to be FAXED BACK to us at [phone] for Medicare purposes. For Medicare only, by signing this I certify the plan of care. Please let me know if there are questions or concerns regarding this plan of care. Physician Signature: Date:
== END 2021-02-13 19:00 | disposition home or self-care (01) ==
LOC: PT 13:06
PROVIDERS: PCP Internal Medicine; Referring Provider Nurse Practitioner Family; Visit Provider Nurse Practitioner Family
DX: S88.911D Complete traumatic amputation of right lower leg, level unspecified, subsequent encounter (principal); X58.XXXD Exposure to other specified factors, subsequent encounter; T87.89 Other complications of amputation stump; L97.919 Non-pressure chronic ulcer of unspecified part of right lower leg with unspecified severity; N39.3 Stress incontinence (female) (male); L89.322 Pressure ulcer of left buttock, stage 2; E11.622 Type 2 diabetes mellitus with other skin ulcer; L98.419 Non-pressure chronic ulcer of buttock with unspecified severity; G89.29 Other chronic pain
CPT/HCPCS: 97163

== ENCOUNTER 2021-02-26 14:30 | Outpatient (RCR) | payer MEDICARE, SELFPAY ==
[2021-02-06 00:03] VITALS: BP 133/97; PULSE 112; RESP 16; TEMP 36.6; O2SAT 99
[2021-02-06 16:19] VITALS: BMI 36.5
--- NOTE | 2021-02-12 16:09 | WC ---
Patient called stating she will need more pain medications. I let Dr Guadarrama know who will electronically call it in. Patient was notified.
[2021-02-19 14:30] VITALS: BP 107/66; PULSE 98; TEMP 36.1; BMI 36.5
--- NOTE | 2021-02-19 16:16 | PN.PCM_ITS ---
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 History of Wound: Surgery 01/02/21 - Surgical preparation anterior aspect right BKA stump with incision and drainage and excisional debridement nonhealing painful infected diabetic ulcer (12 cm2) and partial ostectomy tibia for osteomyelitis. Operative tissue cultures positive for Corynebacterium amycolatum, Anaerobic cocci and Fingoldia magna. Operative bone cultures positive for Anaerobic cocci and Fingoldia magna. Pathology of the bone was negative for acute osteomyelitis. She was treated with IV Vanc that was started 01/02/21 and Flagyl. PICC line pulled 01/15/21. Wound care - wound VAC at 150 mmHg. She has some blisters forming on the periwound. Will take a VAC holiday and place Aquacel-Ag daily covered with gauze until next week. Surgery 12/07/19 - 1. Surgical preparation right BKA stump with incision and drainage and excisional debridement infected hematoma (19.25 cm2). 2. Partial ostectomy tibia for osteomyelitis. Wound care- Finished Epicord and Epifix. She has been using Regranex daily. She is complaining of increased pain at the ulcer site and states that she had drainage that she thought looked infected. Wound cultures obtained on 09/11/20 and were positive for Entercoccus faecalis and Anaerobic cocci. She has been taking Augmentin and a probiotic. Operative bone culture and tissue culture from 12/07/19 showed Staphylococcus aureus. She was treated with Doxycycline. Pathology was negative for osteomyelitis. Pathology from 06/26 was positive for osteomyelitis. Her HgA1c from 12/07/19 was 10.5. Prealbumin from 12/07/19 was 14. Another wound culture was obtained on 02/21/20. It showed Enterococcus faecalis. She was started on Augmentin and has finished them. She santiago another wound culture on 07/11/20. It showed Anaerococcus prevoti and Anaerobic cocci. She was placed on Augmentin and has finished them. An MRI was done on 10/13/20. It showed subtle area of abnormal signal within the distal tibial stump anteriorly with overlying soft tissue thinning and edema. This may represent early osteomyelitis. I do not see a definite abscess. It may be of benefit to repeat the study with intravenous contrast for further evaluation if clinically indicated. She denies fever today and states her appetite is ok. Progress of Wound: Stable Objective Data Objective Data Vital Signs: Vital Signs Temp Pulse Resp BP Pulse Ox 97.0 F L 98 16 107/66 99 02/19/21 14:30 02/19/21 14:30 02/06/21 00:03 02/19/21 14:30 02/06/21 00:03 Weight: 203 lb Body Mass Index (BMI) 36.5 Charges/Coding Procedures Integumentary 111xxx-113xx: 58129 Global Visit Physical Exam Const alert and oriented x3 General Appearance: cooperative HEENT normocephalic Eyes PERRL Lymph Lymphatic: no lymphedema noted Resp normal respiratory effort Cardio regular rate GI normal to inspection, nondistended, normoactive bowel sounds Extremity normal capillary refill Skin Wound Narrative: Right BKA anterior stump ulcer is very tender to palpation. Bone is exposed. Love wound is mildly excoriated and starting to get blisters. Neuro CN's II-XII intact bilaterally Psych Appearance: grossly normal Debridement Note Debridement Note Post-Debridement Measurements and Additional Note: Post-Debridement Measurements/Treatment WC - Nurse 1 - General Ulcer Assessment Start: 02/19/21 14:29 Freq: Status: Active Protocol: SOL.HEMAL Activity Type Activity Date Activity User E-Sign Co-Sign Detail Recorded Client Recorded Date Recorded By Document 02/19/21 14:30 KRISHNA [id number] 02/19/21 14:31 KRISHNA 02/19/21 14:30 - Today's Visit Information Type of service Follow-up Visit (Physician/PHOTOGRAPHIC LABORATORY TECHNICIAN ) Arrival Mode Wheelchair Patient Identification Verified (Name & Yes ) Height and Weight Body Mass Index (BMI) 36.5 BMI Classification Obese Vital Signs Temperature (97.8 F-99.1 F) 97.0 F L Temperature Source Temporal Pulse Rate (60-100) 98 Pulse Location Monitor Blood Pressure (90/60-120/80) 107/66 Blood Pressure Mean (mm Hg) 79 Source Monitor Position Semi-Fowlers Blood Pressure Location Right Arm History Since Last Visit- (Skip if this is Patient's initial visit) Have you changed medications since your No last visit? Any new allergies or adverse reactions No Had a fall/change in ADL's that may No increase risk of falls Signs or symptoms of abuse and/or No neglect since last visit Have you been in the hospital since your No last visit? Has dressing in place as prescribed Yes Has compression in place as prescribed N/A Has offloadiing in place as prescribed N/A Experienced any changes in pain level or No management Pain Scale: 0-10 Numeric Is Patient Pain Free? Yes - Nurse 1 - General Ulcer Measurement Start: 02/19/21 14:29 Freq: Status: Active Protocol: Activity Type Activity Date Activity User E-Sign Co-Sign Detail Recorded Client Recorded Date Recorded By Document 02/19/21 14:30 KRISHNA [id number] 02/19/21 14:31 KRISHNA 02/19/21 14:30 Wound Center Nurse 1 #9 BKA POST OP -Current Size (cm) - Length 3.9 -Current Size (cm) - Width 3.9 -Current Size (cm) - Depth 0.5 -Total Square Cm 15.21 -Exudate Amt Small -Exudate Type Serosanguineous -Wound Margin Distinct, Outline Attached -Granulation Amt Large (67-100%) -Granulation Quality Red -Texture (Love-wound Skin Appearance) Assessed, Scarring -Moisture (Love-wound Skin Appearance) No Abnormality, Assessed -Color (Love-wound Skin Appearance) No Abnormality, Assessed -Temperature (Love-wound Skin No Abnormality Appearance) (Pt Warm) -Tenderness on Palpation (Love-wound No Skin Appearance) -Ulcer Cleansing Rinsed/ Irrigated with Saline -Foul Odor after Cleansing No -Anesthetic Used 4% Lidocaine Solution,5% Lidocaine Gel - Nurse 2 - General Ulcer CM Notes Start: 02/19/21 14:29 Freq: Status: Active Protocol: Activity Type Activity Date Activity User E-Sign Co-Sign Detail Recorded Client Recorded Date Recorded By Document 02/19/21 16:02 DEYANIRA [id number] 02/19/21 16:03 PL 02/19/21 16:02 Wound Center Nurse 2 -Time 14:49 -Correct Patient Yes -Correct Side, Site, Position Yes -Correct Procedure Yes -Procedure Performed Yes -Type of Procedure Debridement -Clinical Debridement Muscle / Fascia -Tissue Removed Subcutaneous, Muscle -Post Debridement (cm) - Length 4 -Post Debridement (cm) - Width 3.5 -Post Debridement (cm) - Depth 0.5 -Total Square (Post) (cm) 14.0 -Area of Debridement (cm) - Length 4 -Area of Debridement (cm) - Width 3.5 -Total Square (Area) (cm) 14.0 -Tunneling No -Undermining/Tunneling No -Circular Undermining No -Wound/Ulcer Outcome Not Healed -Ulcer Cleansing Rinsed/ Irrigated with Saline -Foul Odor after Cleansing No -Bioengineered Tissue No -Bleeding Controlled with Pressure -Treatment Response Procedure Tolerated Well -Debridement - Muscle / Fascia, 1st Yes 20sq cm Pain Scale: 0-10 Numeric Is Patient Pain Free? Yes WC - Nurse 3 - General Ulcer D/C NN Start: 02/19/21 14:29 Freq: Status: Active Protocol: Activity Type Activity Date Activity User E-Sign Co-Sign Detail Recorded Client Recorded Date Recorded By Document 02/19/21 15:04 DL [id number] 02/19/21 15:05 DL 02/19/21 15:04 Wound Care Nurse 3 #9 BKA POST OP -Ulcer Cleansing Rinsed/ Irrigated with Saline -Foul Odor after Cleansing No -Primary Dressing Applied Aquacel AG 4x4 -Primary Dressing Covered/Secured with Dry Gauze & Roll Gauze, Secured with Tape -Other Covering olya -Aquacel AG 4x4 1 Treatment Response Procedure Tolerated Well Pain Scale: 0-10 Numeric Is Patient Pain Free? Yes WC - Visit Discharge Discharge Condition Stable Ambulatory Status Wheelchair Transportation Private Auto Notes: Vac Holiday Wound debrided: Anterior BKA Laterality: Right Type of Debridement: Excisional debridement Anesthesia Used: 5% Lidocaine Gel Depth: Down to and including healthy tissue, in the subcutaneous layer, to muscle and to bone Percentage of wound debrided: 100 Instrument Used: 5mm curette Tissue Removed: Subcutaneous tissue and slough into the muscle with bone exposure. 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 Will place Aquacel-Ag daily and cover with gauze. Will plan on re-applying VAC next week. Finished Vancomycin and Flagyl. Discussed that she needs to stop smoking and get her HgbA1C below 8 before she is able to have a bone graft to the hole in her right BKA bone. She states her blood sugars have been under much better control. She is keeping them in the 120's mostly. She is also going to try and restart Chantix to help stop smoking. She states she is motivated to get healthier. Encouraged increased protein intake and Vitamin C intake. Renewed Percocet (21 tabs). PDMP reviewed. Follow up one week.
[2021-02-26 14:38] VITALS: BP 127/75; PULSE 105; RESP 20; TEMP 36.9; BMI 36.5
--- NOTE | 2021-02-26 15:30 | PCM.WC.PN ---
History of Present Illness Date of Service: 02/26/21 Chief Complaint: Nohealing infected diabetic ulcer anterior aspect right BKA stump. History of Wound: Surgery 01/02/21 - Surgical preparation anterior aspect right BKA stump with incision and drainage and excisional debridement nonhealing painful infected diabetic ulcer (12 cm2) and partial ostectomy tibia for osteomyelitis. Operative tissue cultures positive for Corynebacterium amycolatum, Anaerobic cocci and Fingoldia magna. Operative bone cultures positive for Anaerobic cocci and Fingoldia magna. Pathology of the bone was negative for acute osteomyelitis. She was treated with IV Vanc that was started 01/02/21 and Flagyl. PICC line pulled 01/15/21. Wound care - wound VAC at 150 mmHg. She has some blisters forming on the periwound. Will take a VAC holiday and place Aquacel-Ag daily covered with gauze until next week. Surgery 12/07/19 - 1. Surgical preparation right BKA stump with incision and drainage and excisional debridement infected hematoma (19.25 cm2). 2. Partial ostectomy tibia for osteomyelitis. Wound care- Finished Epicord and Epifix. She has been using Regranex daily. She is complaining of increased pain at the ulcer site and states that she had drainage that she thought looked infected. Wound cultures obtained on 09/11/20 and were positive for Entercoccus faecalis and Anaerobic cocci. She has been taking Augmentin and a probiotic. Operative bone culture and tissue culture from 12/07/19 showed Staphylococcus aureus. She was treated with Doxycycline. Pathology was negative for osteomyelitis. Pathology from 06/26 was positive for osteomyelitis. Her HgA1c from 12/07/19 was 10.5. Prealbumin from 12/07/19 was 14. Another wound culture was obtained on 02/21/20. It showed Enterococcus faecalis. She was started on Augmentin and has finished them. She santiago another wound culture on 07/11/20. It showed Anaerococcus prevoti and Anaerobic cocci. She was placed on Augmentin and has finished them. An MRI was done on 10/13/20. It showed subtle area of abnormal signal within the distal tibial stump anteriorly with overlying soft tissue thinning and edema. This may represent early osteomyelitis. I do not see a definite abscess. It may be of benefit to repeat the study with intravenous contrast for further evaluation if clinically indicated. She denies fever today and states her appetite is ok. Progress of Wound: Decrease in size. Objective Data Objective Data Vital Signs: Vital Signs Temp Pulse Resp BP Pulse Ox 98.5 F 105 H 20 H 127/75 H 99 02/26/21 14:38 02/26/21 14:38 02/26/21 14:38 02/26/21 14:38 02/06/21 00:03 Weight: 203 lb Body Mass Index (BMI) 36.5 Charges/Coding Procedures Integumentary 111xxx-113xx: 51907 Global Visit Physical Exam Const alert and oriented x3 General Appearance: cooperative HEENT normocephalic Head and Scalp: atraumatic Eyes PERRL Lymph Lymphatic: no lymphedema noted Resp normal respiratory effort Cardio regular rate GI Palpation: soft Extremity normal capillary refill Skin Rashes: no rashes Wound Narrative: Right BKA ulcer with bone exposure. Periwound improved after taking a break from wound VAC. Neuro CN's II-XII intact bilaterally Psych Appearance: grossly normal Debridement Note Debridement Note Post-Debridement Measurements and Additional Note: Post-Debridement Measurements/Treatment - Nurse 1 - General Ulcer Assessment Start: 02/19/21 14:29 Freq: Status: Active Protocol: SOL.LOWRONALD Activity Type Activity Date Activity User E-Sign Co-Sign Detail Recorded Client Recorded Date Recorded By Document 02/19/21 14:30 KR [id number] 02/19/21 14:31 KR Document 02/26/21 14:38 DL [id number] 02/26/21 14:43 DL 02/19/21 02/26/21 14:30 14:38 - Today's Visit Information Type of service Follow-up Visit Follow-up Visit (Physician/REFRIGERATION MECHANIC HELPER (Physician/REFRIGERATION MECHANIC HELPER ) ) Arrival Mode Wheelchair Wheelchair Transfer Assistance None Patient Identification Verified (Name & Yes Yes ) Patient Requires Transmission-Based No Precautions Finger Stick Blood Sugar(mg/dl) (if 128 indicated): Blood Sugar Stated by Patient Height and Weight Body Mass Index (BMI) 36.5 36.5 BMI Classification Obese Obese Vital Signs Temperature (97.8 F-99.1 F) 97.0 F L 98.5 F Temperature Source Temporal Temporal Pulse Rate (60-100) 98 105 H Pulse Location Monitor Monitor Respiratory Rate (12-18) 20 H Respiratory rate source Observation Blood Pressure (90/60-120/80) 107/66 127/75 H Blood Pressure Mean (mm Hg) 79 92 Source Monitor Monitor Position Semi-Fowlers Blood Pressure Location Right Arm History Since Last Visit- (Skip if this is Patient's initial visit) Have you changed medications since your No No last visit? Any new allergies or adverse reactions No No Had a fall/change in ADL's that may No No increase risk of falls Signs or symptoms of abuse and/or No No neglect since last visit Have you been in the hospital since your No No last visit? Has dressing in place as prescribed Yes Yes Has compression in place as prescribed N/A Yes Has offloadiing in place as prescribed N/A Experienced any changes in pain level or No No management Pain Scale: 0-10 Numeric Is Patient Pain Free? Yes Yes WC - Nurse 1 - General Ulcer Measurement Start: 02/19/21 14:29 Freq: Status: Active Protocol: Activity Type Activity Date Activity User E-Sign Co-Sign Detail Recorded Client Recorded Date Recorded By Document 02/19/21 14:30 KR [id number] 02/19/21 14:31 KR Document 02/26/21 14:38 DL [id number] 02/26/21 14:43 DL 02/19/21 02/26/21 14:30 14:38 Wound Center Nurse 1 #9 BKA POST OP -Current Size (cm) - Length 3.9 2.9 -Current Size (cm) - Width 3.9 2.3 -Current Size (cm) - Depth 0.5 0.6 -Total Square Cm 15.21 6.67 -Photo Taken No -Exudate Amt Small Medium -Exudate Type Serosanguineous Serosanguineous -Wound Margin Distinct, Distinct, Outline Outline Attached Attached -Granulation Amt Large (67-100%) Medium (34-66%) -Granulation Quality Red Red -Necrosis Amt Medium (34-66%) -Necrotic Tissue Type Adherent Slough -Structure Exposed Bone -Texture (Love-wound Skin Appearance) Assessed, Scarring Scarring -Moisture (Love-wound Skin Appearance) No Abnormality, Dry/Scaly Assessed -Color (Love-wound Skin Appearance) No Abnormality, No Abnormality Assessed -Temperature (Love-wound Skin No Abnormality No Abnormality Appearance) (Pt Warm) (Pt Warm) -Tenderness on Palpation (Love-wound No No Skin Appearance) -Ulcer Cleansing Rinsed/ Wound Cleanser Irrigated with Saline -Foul Odor after Cleansing No No -Anesthetic Used 4% Lidocaine 4% Lidocaine Solution,5% Solution Lidocaine Gel WC - Nurse 2 - General Ulcer CM Notes Start: 02/19/21 14:29 Freq: Status: Active Protocol: Activity Type Activity Date Activity User E-Sign Co-Sign Detail Recorded Client Recorded Date Recorded By Document 02/19/21 16:02 PL [id number] 02/19/21 16:03 PL Document 02/26/21 15:05 JF [id number] 02/26/21 15:10 JF 02/19/21 02/26/21 16:02 15:05 Wound Center Nurse 2 #9 BKA POST OP -Time 14:49 15:07 -Correct Patient Yes Yes -Correct Side, Site, Position Yes Yes -Correct Procedure Yes Yes -Procedure Performed Yes Yes -Type of Procedure Debridement Debridement -Clinical Debridement Muscle / Fascia Bone -Tissue Removed Subcutaneous, Fascia Muscle -Post Debridement (cm) - Length 4 3.4 -Post Debridement (cm) - Width 3.5 2.5 -Post Debridement (cm) - Depth 0.5 0.9 -Total Square (Post) (cm) 14.0 8.50 -Area of Debridement (cm) - Length 4 3.4 -Area of Debridement (cm) - Width 3.5 2.5 -Total Square (Area) (cm) 14.0 8.50 -Tunneling No No -Undermining/Tunneling No No -Circular Undermining No No -Wound/Ulcer Outcome Not Healed Not Healed -Ulcer Cleansing Rinsed/ Rinsed/ Irrigated with Irrigated with Saline Saline -Foul Odor after Cleansing No No -Bioengineered Tissue No No -Bleeding Controlled with Pressure Pressure -Offloading No -Treatment Response Procedure Procedure Tolerated Well Tolerated Well -Debridement - Muscle / Fascia, 1st Yes 20sq cm -Debridement - Bone, 1st 20sq cm Yes Pain Scale: 0-10 Numeric Is Patient Pain Free? Yes Yes - Nurse 3 - General Ulcer D/C NN Start: 02/19/21 14:29 Freq: Status: Active Protocol: Activity Type Activity Date Activity User E-Sign Co-Sign Detail Recorded Client Recorded Date Recorded By Document 02/19/21 15:04 DL [id number] 02/19/21 15:05 DL 02/19/21 15:04 Wound Care Nurse 3 #9 BKA POST OP -Ulcer Cleansing Rinsed/ Irrigated with Saline -Foul Odor after Cleansing No -Primary Dressing Applied Aquacel AG 4x4 -Primary Dressing Covered/Secured with Dry Gauze & Roll Gauze, Secured with Tape -Other Covering olya -Aquacel AG 4x4 1 Treatment Response Procedure Tolerated Well Pain Scale: 0-10 Numeric Is Patient Pain Free? Yes WC - Visit Discharge Discharge Condition Stable Ambulatory Status Wheelchair Transportation Private Auto Notes: Vac Holiday Wound debrided: BKA Laterality: Right Type of Debridement: Excisional debridement Anesthesia Used: 5% Lidocaine Gel Depth: Down to and including healthy tissue, in the subcutaneous layer, to muscle and to bone Percentage of wound debrided: 100 Instrument Used: 5mm curette Tissue Removed: Subcutaneous tissue and slough, sharp bone edge snipped to smooth out area Severity: Fat Layer Exposed Amount of bleeding with debridement: Moderate Bleeding Controlled with: Pressure and Compression and gauze Patient tolerated procedure: Patient tolerated procedure well Assessment/Plan Assessment/Plan 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: CODE(S): T87.89 - Other complications of amputation stump; L97.919 - Non-pressure chronic ulcer of unspecified part of right lower leg with unspecified severity (2) Hemoglobin A1C greater than 9%, indicating poor diabetic control: CODE(S): R73.09 - Other abnormal glucose (3) History of osteomyelitis: CODE(S): Z87.39 - Personal history of other diseases of the musculoskeletal system and connective tissue (4) Debility: CODE(S): R53.81 - Other malaise (5) Tobacco abuse: CODE(S): Z72.0 - Tobacco use (6) PVD (peripheral vascular disease): CODE(S): I73.9 - Peripheral vascular disease, unspecified PLAN: Wound care - Wound VAC holiday last week. Periwound improved. Will restart Wound VAC at 150 mmHg. She had a sharp bone exposure on the distal portion of her ulcer. Nipped the sharp area without difficulty. Finished Vancomycin and Flagyl. Discussed that she needs to stop smoking and get her HgbA1C below 8 before she is able to have a bone graft to the hole in her right BKA bone. She states her blood sugars have been under much better control. She is keeping them in the 120's mostly. She has restarted Chantix and started Nicotine patch with the help of her PCP and she has not had a cigarette in over a week! She states she is motivated to get healthier. Encouraged increased protein intake and Vitamin C intake. She has home health to help with her wound VAC dressing changes. She will follow up in 2 weeks due to my vacation day next week.
== END 2021-03-07 23:59 ==
LOC: WC 14:30
PROVIDERS: Family Provider Internal Medicine; PCP Internal Medicine; Referring Provider Surgery; Visit Provider Surgery
DX: E11.622 Type 2 diabetes mellitus with other skin ulcer (principal); T87.43 Infection of amputation stump, right lower extremity; L97.812 Non-pressure chronic ulcer of other part of right lower leg with fat layer exposed; T87.89 Other complications of amputation stump; Y83.5 Amputation of limb(s) as the cause of abnormal reaction of the patient, or of later complication, without mention of misadventure at the time of the procedure; F17.200 Nicotine dependence, unspecified, uncomplicated
CPT/HCPCS: 11043; 11044; 97605

== ENCOUNTER 2021-03-26 14:32 | Outpatient (RCR) | payer MEDICARE, SELFPAY ==
[2021-03-08 00:09] VITALS: BP 127/75; PULSE 105; RESP 20; TEMP 36.9; O2SAT 99
[2021-03-26 14:38] VITALS: BP 132/68; PULSE 105; TEMP 36.1; BMI 36.5
--- NOTE | 2021-03-26 15:48 | PN.PCM_ITS ---
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 History of Wound: Surgery 01/02/21 - Surgical preparation anterior aspect right BKA stump with incision and drainage and excisional debridement nonhealing painful infected diabetic ulcer (12 cm2) and partial ostectomy tibia for osteomyelitis. Operative tissue cultures positive for Corynebacterium amycolatum, Anaerobic cocci and Fingoldia magna. Operative bone cultures positive for Anaerobic cocci and Fingoldia magna. Pathology of the bone was negative for acute osteomyelitis. She was treated with IV Vanc that was started 01/02/21 and Flagyl. PICC line pulled 01/15/21. Wound care - wound VAC at 150 mmHg. Surgery 12/07/19 - 1. Surgical preparation right BKA stump with incision and drainage and excisional debridement infected hematoma (19.25 cm2). 2. Partial ostectomy tibia for osteomyelitis. Wound care- Finished Epicord and Epifix. She has been using Regranex daily. She is complaining of increased pain at the ulcer site and states that she had drainage that she thought looked infected. Wound cultures obtained on 09/11/20 and were positive for Entercoccus faecalis and Anaerobic cocci. She has been taking Augmentin and a probiotic. Operative bone culture and tissue culture from 12/07/19 showed Staphylococcus aureus. She was treated with Doxycycline. Pathology was negative for osteomyelitis. Pathology from 06/26 was positive for osteomyelitis. Her HgA1c from 12/07/19 was 10.5. Prealbumin from 12/07/19 was 14. Another wound culture was obtained on 02/21/20. It showed Enterococcus faecalis. She was started on Augmentin and has finished them. She santiago another wound culture on 07/11/20. It showed Anaerococcus prevoti and Anaerobic cocci. She was placed on Augmentin and has finished them. An MRI was done on 10/13/20. It showed subtle area of abnormal signal within the distal tibial stump anteriorly with overlying soft tissue thinning and edema. This may represent early osteomyelitis. I do not see a definite abscess. It may be of benefit to repeat the study with intravenous contrast for further evaluation if clinically indicated. She denies fever today and states her appetite is ok. Progress of Wound: Improved. Objective Data Objective Data Vital Signs: Vital Signs Temp Pulse Resp BP Pulse Ox 97.0 F L 105 H 20 H 132/68 H 99 03/26/21 14:38 03/26/21 14:38 03/08/21 00:09 03/26/21 14:38 03/08/21 00:09 Weight: 203 lb Body Mass Index (BMI) 36.5 Charges/Coding Procedures Integumentary [id number]: [id number] Global Visit Physical Exam Const alert and oriented x3 General Appearance: cooperative HEENT normocephalic Eyes PERRL Lymph Lymphatic: no lymphedema noted Resp normal respiratory effort Cardio regular rate GI non-tender Palpation: soft Extremity normal capillary refill Skin Wound Narrative: Right BKA ulcer with bone exposed. There is better bone coverage today compared to her last visit. Area continues to be very sensitive to palpation and debridment. Neuro CN's II-XII intact bilaterally Psych Appearance: grossly normal Debridement Note Debridement Note Post-Debridement Measurements and Additional Note: Post-Debridement Measurements/Treatment WC - Nurse 1 - General Ulcer Assessment Start: 03/26/21 14:38 Freq: Status: Active Protocol: KIRSTIE Activity Type Activity Date Activity User E-Sign Co-Sign Detail Recorded Client Recorded Date Recorded By Document 03/26/21 14:38 KRISHNA [id number] 03/26/21 14:42 KRISHNA 03/26/21 14:38 - Today's Visit Information Type of service Follow-up Visit (Physician/CYTOPATHOLOGIST ) Arrival Mode Wheelchair Patient Identification Verified (Name & Yes ) Height and Weight Body Mass Index (BMI) 36.5 BMI Classification Obese Vital Signs Temperature (97.8 F-99.1 F) 97.0 F L Temperature Source Temporal Pulse Rate (60-100) 105 H Pulse Location Monitor Blood Pressure (90/60-120/80) 132/68 H Blood Pressure Mean (mm Hg) 89 Source Monitor Position Sitting Blood Pressure Location Right Arm History Since Last Visit- (Skip if this is Patient's initial visit) Have you changed medications since your No last visit? Any new allergies or adverse reactions No Had a fall/change in ADL's that may No increase risk of falls Signs or symptoms of abuse and/or No neglect since last visit Have you been in the hospital since your No last visit? Has dressing in place as prescribed Yes Has compression in place as prescribed N/A Has offloadiing in place as prescribed N/A Experienced any changes in pain level or No management Pain Scale: 0-10 Numeric Is Patient Pain Free? Yes - Nurse 1 - General Ulcer Measurement Start: 03/26/21 14:38 Freq: Status: Active Protocol: Activity Type Activity Date Activity User E-Sign Co-Sign Detail Recorded Client Recorded Date Recorded By Document 03/26/21 14:38 KRISHNA [id number] 03/26/21 14:42 KRISHNA 03/26/21 14:38 Wound Center Nurse 1 #9 BKA POST OP -Current Size (cm) - Length 3.1 -Current Size (cm) - Width 2.9 -Current Size (cm) - Depth 0.1 -Total Square Cm 8.99 -Wound Margin Distinct, Outline Attached -Granulation Amt Medium (34-66%) -Granulation Quality Red -Necrosis Amt None Present (0 %) -Texture (Love-wound Skin Appearance) Assessed, Scarring -Moisture (Love-wound Skin Appearance) No Abnormality, Assessed -Color (Love-wound Skin Appearance) No Abnormality, Assessed -Temperature (Love-wound Skin No Abnormality Appearance) (Pt Warm) -Tenderness on Palpation (Love-wound No Skin Appearance) -Ulcer Cleansing Rinsed/ Irrigated with Saline -Foul Odor after Cleansing No -Anesthetic Used 5% Lidocaine Gel - Nurse 3 - General Ulcer D/C NN Start: 03/26/21 14:38 Freq: Status: Active Protocol: Activity Type Activity Date Activity User E-Sign Co-Sign Detail Recorded Client Recorded Date Recorded By Document 03/26/21 15:12 KRISHNA [id number] 03/26/21 15:12 03/26/21 15:12 Wound Care Nurse 3 -Ulcer Cleansing Rinsed/ Irrigated with Saline -Foul Odor after Cleansing No -Negative Pressure Wound Therapy Start -Negative Pressure is Continuous -NPWT Application Charge ($) NPWT > 50 sq cm Pain Scale: 0-10 Numeric Is Patient Pain Free? Yes - Visit Discharge Discharge Condition Stable Ambulatory Status Wheelchair Transportation Private Auto Wound debrided: BKA stump ulcer Laterality: Right Type of Debridement: Excisional debridement Anesthesia Used: 5% Lidocaine Gel Depth: Down to and including healthy tissue, in the subcutaneous layer and to muscle Instrument Used: 3mm curette Tissue Removed: Subcutaneous tissue and slough into the muscle. 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: CODE(S): T87.89 - Other complications of amputation stump; L97.919 - Non- pressure chronic ulcer of unspecified part of right lower leg with unspecified severity (2) Hemoglobin A1C greater than 9%, indicating poor diabetic control: CODE(S): R73.09 - Other abnormal glucose (3) History of osteomyelitis: CODE(S): Z87.39 - Personal history of other diseases of the musculoskeletal system and connective tissue (4) Acute post-operative pain: CODE(S): G89.18 - Other acute postprocedural pain (5) Debility: CODE(S): R53.81 - Other malaise (6) Tobacco abuse: CODE(S): Z72.0 - Tobacco use PLAN: Wound care - Wound VAC at 150 mmHg. Dressing to be changed 3 times a week. Finished Vancomycin and Flagyl. Discussed that she needs to stop smoking and get her HgbA1C below 8 before she is able to have a bone graft to the hole in her right BKA bone. She states her blood sugars have been under much better control. She is keeping them in the 120's mostly. She had restarted Chantix and started Nicotine patch but has had a lot of stress in her life and stopped both of those and has been smoking, but she states she is only had 3 cigarettes so far today. She states she is motivated to get healthier. Encouraged increased protein intake and Vitamin C intake. She has home health to help with her wound VAC dressing changes. She will follow up in 2 weeks.
== END 2021-04-07 23:59 ==
LOC: WC 14:32
PROVIDERS: Family Provider Internal Medicine; PCP Internal Medicine; Referring Provider Surgery; Visit Provider Nurse Practitioner Family
DX: E11.622 Type 2 diabetes mellitus with other skin ulcer (principal); L97.812 Non-pressure chronic ulcer of other part of right lower leg with fat layer exposed; T87.89 Other complications of amputation stump; E66.9 Obesity, unspecified; Z68.36 Body mass index [BMI] 36.0-36.9, adult; R53.81 Other malaise; Z86.14 Personal history of Methicillin resistant Staphylococcus aureus infection; F17.200 Nicotine dependence, unspecified, uncomplicated
CPT/HCPCS: 11042; 97606

== ENCOUNTER 2021-05-07 13:30 | Outpatient (RCR) | payer MEDICARE, MEDICAID, SELFPAY ==
[2021-04-08 00:15] VITALS: BP 132/68; PULSE 105; RESP 20; TEMP 36.1; O2SAT 99
[2021-04-09 14:24] VITALS: BP 118/73; PULSE 107; TEMP 35.8; BMI 36.5
--- NOTE | 2021-04-09 15:11 | PN.PCM_ITS ---
History of Present Illness Date of Service: 04/09/21 Chief Complaint: Nohealing infected diabetic ulcer anterior aspect right BKA stump. History of Wound: Surgery 01/02/21 - Surgical preparation anterior aspect right BKA stump with incision and drainage and excisional debridement nonhealing painful infected diabetic ulcer (12 cm2) and partial ostectomy tibia for osteomyelitis. Operative tissue cultures positive for Corynebacterium amycolatum, Anaerobic cocci and Fingoldia magna. Operative bone cultures positive for Anaerobic cocci and Fingoldia magna. Pathology of the bone was negative for acute osteomyelitis. She was treated with IV Vanc that was started 01/02/21 and Flagyl. PICC line pulled 01/15/21. Wound care - wound VAC at 150 mmHg. She would benefit from an advance wound healing product, such as epifix, to assist with wound closure. Surgery 12/07/19 - 1. Surgical preparation right BKA stump with incision and drainage and excisional debridement infected hematoma (19.25 cm2). 2. Partial ostectomy tibia for osteomyelitis. Wound care- Finished Epicord and Epifix. She has been using Regranex daily. She is complaining of increased pain at the ulcer site and states that she had drainage that she thought looked infected. Wound cultures obtained on 09/11/20 and were positive for Entercoccus faecalis and Anaerobic cocci. She has been taking Augmentin and a probiotic. Operative bone culture and tissue culture from 12/07/19 showed Staphylococcus aureus. She was treated with Doxycycline. Pathology was negative for osteomyelitis. Pathology from 06/26 was positive for osteomyelitis. Her HgA1c from 12/07/19 was 10.5. Prealbumin from 12/07/19 was 14. Another wound culture was obtained on 02/21/20. It showed Enterococcus faecalis. She was started on Augmentin and has finished them. She santiago another wound culture on 07/11/20. It showed Anaerococcus prevoti and Anaerobic cocci. She was placed on Augmentin and has finished them. An MRI was done on 10/13/20. It showed subtle area of abnormal signal within the distal tibial stump anteriorly with overlying soft tissue thinning and edema. This may represent early osteomyelitis. I do not see a definite abscess. It may be of benefit to repeat the study with intravenous contrast for further evaluation if clinically indicated. She denies fever today and states her appetite is ok. Progress of Wound: Improved, bone is almost completely covered with granulation tissue. Objective Data Objective Data Vital Signs: Vital Signs Temp Pulse Resp BP Pulse Ox 96.4 F L 107 H 20 H 118/73 99 04/09/21 14:24 04/09/21 14:24 04/08/21 00:15 04/09/21 14:24 04/08/21 00:15 Weight: 203 lb Body Mass Index (BMI) 36.5 Charges/Coding Procedures Integumentary 111xxx-113xx: 01120 Annalisa musc/fascia 20 sq cm/< Physical Exam Const alert and oriented x3 General Appearance: cooperative HEENT normocephalic Head and Scalp: atraumatic Eyes PERRL Lymph Lymphatic: no lymphedema noted Resp normal respiratory effort Cardio regular rate GI non-tender Palpation: soft Extremity normal capillary refill Skin Wound Narrative: Ulcer on right BKA is smaller, is beefy pink in color, there is a very small amount of bone exposed. Neuro CN's II-XII intact bilaterally Psych Appearance: grossly normal Debridement Note Debridement Note Post-Debridement Measurements and Additional Note: Post-Debridement Measurements/Treatment WC - Nurse 1 - General Ulcer Assessment Start: 04/09/21 14:24 Freq: Status: Active Protocol: SOL.HEMAL Activity Type Activity Date Activity User E-Sign Co-Sign Detail Recorded Client Recorded Date Recorded By Document 04/09/21 14:24 KRISHNA [id number] 04/09/21 14:26 KRISHNA 04/09/21 14:24 - Today's Visit Information Type of service Follow-up Visit (Physician/[employer] ) Arrival Mode Wheelchair Patient Identification Verified (Name & Yes ) Height and Weight Body Mass Index (BMI) 36.5 BMI Classification Obese Vital Signs Temperature (97.8 F-99.1 F) 96.4 F L Temperature Source Temporal Pulse Rate (60-100) 107 H Pulse Location Monitor Blood Pressure (90/60-120/80) 118/73 Blood Pressure Mean (mm Hg) 88 Source Monitor Position Semi-Fowlers Blood Pressure Location Right Arm History Since Last Visit- (Skip if this is Patient's initial visit) Have you changed medications since your No last visit? Any new allergies or adverse reactions No Had a fall/change in ADL's that may No increase risk of falls Signs or symptoms of abuse and/or No neglect since last visit Have you been in the hospital since your No last visit? Has dressing in place as prescribed Yes Has compression in place as prescribed N/A Has offloadiing in place as prescribed N/A Experienced any changes in pain level or No management Pain Scale: 0-10 Numeric Is Patient Pain Free? Yes - Nurse 1 - General Ulcer Measurement Start: 04/09/21 14:24 Freq: Status: Active Protocol: Activity Type Activity Date Activity User E-Sign Co-Sign Detail Recorded Client Recorded Date Recorded By Document 04/09/21 14:24 KRISHNA [id number] 04/09/21 14:26 KRISHNA 04/09/21 14:24 Wound Center Nurse 1 #9 BKA POST OP -Current Size (cm) - Length 1.9 -Current Size (cm) - Width 1.4 -Current Size (cm) - Depth 0.3 -Total Square Cm 2.66 -Exudate Amt Small -Exudate Type Serosanguineous -Wound Margin Distinct, Outline Attached -Granulation Amt Small (1-33%) -Granulation Quality Fisk -Necrosis Amt Small (1-33%) -Necrotic Tissue Type Adherent Slough -Structure Exposed Bone,Fat Layer Exposed -Texture (Love-wound Skin Appearance) Assessed, Scarring -Moisture (Love-wound Skin Appearance) No Abnormality, Assessed -Color (Love-wound Skin Appearance) No Abnormality, Assessed -Temperature (Love-wound Skin No Abnormality Appearance) (Pt Warm) -Tenderness on Palpation (Love-wound No Skin Appearance) -Ulcer Cleansing Rinsed/ Irrigated with Saline -Foul Odor after Cleansing No -Anesthetic Used 4% Lidocaine Solution - Nurse 2 - General Ulcer CM Notes Start: 04/09/21 14:24 Freq: Status: Active Protocol: Activity Type Activity Date Activity User E-Sign Co-Sign Detail Recorded Client Recorded Date Recorded By Document 04/09/21 14:42 SHAYNA [id number] 04/09/21 14:46 SHAYNA 04/09/21 14:42 Wound Center Nurse 2 -Time 14:43 -Correct Patient Yes -Correct Side, Site, Position Yes -Correct Procedure Yes -Procedure Performed Yes -Type of Procedure Debridement -Clinical Debridement Muscle / Fascia -Tissue Removed Muscle -Post Debridement (cm) - Length 2.2 -Post Debridement (cm) - Width 1.5 -Post Debridement (cm) - Depth 0.3 -Total Square (Post) (cm) 3.30 -Area of Debridement (cm) - Length 2.2 -Area of Debridement (cm) - Width 1.5 -Total Square (Area) (cm) 3.30 -Tunneling No -Undermining/Tunneling No -Circular Undermining No -Wound/Ulcer Outcome Not Healed -Ulcer Cleansing Rinsed/ Irrigated with Saline -Foul Odor after Cleansing No -Bioengineered Tissue No -Bleeding Controlled with Pressure -Offloading No -Treatment Response Procedure Tolerated Well -Debridement - Muscle / Fascia, 1st Yes 20sq cm Pain Scale: 0-10 Numeric Is Patient Pain Free? Yes Wound debrided: BKA ulcer Laterality: Right Type of Debridement: Excisional debridement Anesthesia Used: 5% Lidocaine Gel Depth: Down to and including healthy tissue, in the subcutaneous layer and to muscle Percentage of wound debrided: 100 Instrument Used: 3mm curette Tissue Removed: Subcutaneous tissue and slough into the muscle, minimal bone exposed. 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 Dressing to be changed 3 times a week. She would benefit from an advanced wound healing product such as epifix to assist with heaingl this ulcer. We will apply for approval. Finished Vancomycin and Flagyl. Discussed that she needs to stop smoking and get her HgbA1C below 8 before she is able to have a bone graft to the hole in her right BKA bone. She states her blood sugars have been under much better control. She is keeping them in the 120's mostly. She had restarted Chantix and started Nicotine patch but has had a lot of side effects. She is trying very hard to stop smoking. She states she is motivated to get healthier. Encouraged increased protein intake and Vitamin C intake. She has home health to help with her wound VAC dressing changes. She will follow up in 2 weeks.
[2021-04-23 14:17] VITALS: BP 110/77; PULSE 101; RESP 20; TEMP 36.9; BMI 36.5
--- NOTE | 2021-04-23 15:14 | PCM.WC.PN ---
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 History of Wound: Surgery 01/02/21 - Surgical preparation anterior aspect right BKA stump with incision and drainage and excisional debridement nonhealing painful infected diabetic ulcer (12 cm2) and partial ostectomy tibia for osteomyelitis. Operative tissue cultures positive for Corynebacterium amycolatum, Anaerobic cocci and Fingoldia magna. Operative bone cultures positive for Anaerobic cocci and Fingoldia magna. Pathology of the bone was negative for acute osteomyelitis. She was treated with IV Vanc that was started 01/02/21 and Flagyl. PICC line pulled 01/15/21. Wound care - Discontinue wound VAC. She has been approved for Epicord and Epifix. Epicord #1 placed today since she still has bone exposure. Covered with gauze. JOSE D wrap for compression. Surgery 12/07/19 - 1. Surgical preparation right BKA stump with incision and drainage and excisional debridement infected hematoma (19.25 cm2). 2. Partial ostectomy tibia for osteomyelitis. Wound care- Finished Epicord and Epifix. She has been using Regranex daily. She is complaining of increased pain at the ulcer site and states that she had drainage that she thought looked infected. Wound cultures obtained on 09/11/20 and were positive for Entercoccus faecalis and Anaerobic cocci. She has been taking Augmentin and a probiotic. Operative bone culture and tissue culture from 12/07/19 showed Staphylococcus aureus. She was treated with Doxycycline. Pathology was negative for osteomyelitis. Pathology from 06/26 was positive for osteomyelitis. Her HgA1c from 12/07/19 was 10.5. Prealbumin from 12/07/19 was 14. Another wound culture was obtained on 02/21/20. It showed Enterococcus faecalis. She was started on Augmentin and has finished them. She had another wound culture on 07/11/20. It showed Anaerococcus prevoti and Anaerobic cocci. She was placed on Augmentin and has finished them. An MRI was done on 10/13/20. It showed subtle area of abnormal signal within the distal tibial stump anteriorly with overlying soft tissue thinning and edema. This may represent early osteomyelitis. I do not see a definite abscess. It may be of benefit to repeat the study with intravenous contrast for further evaluation if clinically indicated. She denies fever today and states her appetite is ok. Progress of Wound: Improved, small amount of bone is still exposed. Objective Data Objective Data Vital Signs: Vital Signs Temp Pulse Resp BP Pulse Ox 98.4 F 101 H 20 H 110/77 99 04/23/21 14:17 04/23/21 14:17 04/23/21 14:17 04/23/21 14:17 04/08/21 00:15 Weight: 203 lb Body Mass Index (BMI) 36.5 Charges/Coding Procedures Integumentary 150xxx-152xx: 21357 Skin sub graft trnk/arm/leg Physical Exam Const alert and oriented x3 General Appearance: cooperative Eyes PERRL Lymph Lymphatic: no lymphedema noted Resp normal respiratory effort Cardio regular rate GI non-tender Palpation: soft Extremity normal capillary refill Skin Wound Narrative: Right BKA stump ulcer is pink, there remains a small amount of bone exposure. It is extremely sensitive to palpation. Neuro CN's II-XII intact bilaterally Psych Appearance: grossly normal Debridement Note Debridement Note Post-Debridement Measurements and Additional Note: Post-Debridement Measurements/Treatment - Nurse 1 - General Ulcer Assessment Start: 04/09/21 14:24 Freq: Status: Active Protocol: SOL.HEMAL Activity Type Activity Date Activity User E-Sign Co-Sign Detail Recorded Client Recorded Date Recorded By Document 04/09/21 14:24 KR [id number] 04/09/21 14:26 KR Document 04/23/21 14:17 DL [id number] 04/23/21 14:21 DL 04/09/21 04/23/21 14:24 14:17 - Today's Visit Information Type of service Follow-up Visit Follow-up Visit (Physician/METHODS TIME ANALYST (Physician/METHODS TIME ANALYST ) ) Arrival Mode Wheelchair Wheelchair Transfer Assistance None Patient Identification Verified (Name & Yes Yes ) Patient Requires Transmission-Based No Precautions Finger Stick Blood Sugar(mg/dl) (if 132 indicated): Blood Sugar Stated by Patient Height and Weight Body Mass Index (BMI) 36.5 36.5 BMI Classification Obese Obese Vital Signs Temperature (97.8 F-99.1 F) 96.4 F L 98.4 F Temperature Source Temporal Temporal Pulse Rate (60-100) 107 H 101 H Pulse Location Monitor Monitor Respiratory Rate (12-18) 20 H Respiratory rate source Observation Blood Pressure (90/60-120/80) 118/73 110/77 Blood Pressure Mean (mm Hg) 88 88 Source Monitor Monitor Position Semi-Fowlers Blood Pressure Location Right Arm History Since Last Visit- (Skip if this is Patient's initial visit) Have you changed medications since your No No last visit? Any new allergies or adverse reactions No No Had a fall/change in ADL's that may No No increase risk of falls Signs or symptoms of abuse and/or No No neglect since last visit Have you been in the hospital since your No No last visit? Has dressing in place as prescribed Yes Yes Has compression in place as prescribed N/A Yes Has offloadiing in place as prescribed N/A N/A Experienced any changes in pain level or No No management Pain Scale: 0-10 Numeric Is Patient Pain Free? Yes Yes WC - Nurse 1 - General Ulcer Measurement Start: 04/09/21 14:24 Freq: Status: Active Protocol: Activity Type Activity Date Activity User E-Sign Co-Sign Detail Recorded Client Recorded Date Recorded By Document 04/09/21 14:24 KR [id number] 04/09/21 14:26 KR Document 04/23/21 14:17 DL [id number] 04/23/21 14:21 DL 04/09/21 04/23/21 14:24 14:17 Wound Center Nurse 1 #9 BKA POST OP -Current Size (cm) - Length 1.9 1.5 -Current Size (cm) - Width 1.4 0.7 -Current Size (cm) - Depth 0.3 0.2 -Total Square Cm 2.66 1.05 -Photo Taken No -Exudate Amt Small Medium -Exudate Type Serosanguineous Serosanguineous -Wound Margin Distinct, Distinct, Outline Outline Attached Attached -Granulation Amt Small (1-33%) Medium (34-66%) -Granulation Quality [place] -Necrosis Amt Small (1-33%) Medium (34-66%) -Necrotic Tissue Type Adherent Slough Adherent Slough -Structure Exposed Bone,Fat Layer Bone Exposed -Texture (Love-wound Skin Appearance) Assessed, Scarring Scarring -Moisture (Love-wound Skin Appearance) No Abnormality, No Abnormality Assessed -Color (Love-wound Skin Appearance) No Abnormality, No Abnormality Assessed -Temperature (Love-wound Skin No Abnormality No Abnormality Appearance) (Pt Warm) (Pt Warm) -Tenderness on Palpation (Love-wound No No Skin Appearance) -Ulcer Cleansing Rinsed/ Wound Cleanser Irrigated with Saline -Foul Odor after Cleansing No No -Anesthetic Used 4% Lidocaine 4% Lidocaine Solution Solution WC - Nurse 2 - General Ulcer CM Notes Start: 04/09/21 14:24 Freq: Status: Active Protocol: Activity Type Activity Date Activity User E-Sign Co-Sign Detail Recorded Client Recorded Date Recorded By Document 04/09/21 14:42 [id number] 04/09/21 14:46 Document 04/23/21 14:52 [id number] 04/23/21 14:54 04/09/21 04/23/21 14:42 14:52 Wound Center Nurse 2 #9 BKA POST OP -Time 14:43 14:52 -Correct Patient Yes Yes -Correct Side, Site, Position Yes Yes -Correct Procedure Yes Yes -Procedure Performed Yes Yes -Type of Procedure Debridement Debridement -Clinical Debridement Muscle / Fascia Subcutaneous -Tissue Removed Muscle Subcutaneous -Post Debridement (cm) - Length 2.2 1.8 -Post Debridement (cm) - Width 1.5 0.8 -Post Debridement (cm) - Depth 0.3 0.4 -Total Square (Post) (cm) 3.30 1.44 -Area of Debridement (cm) - Length 2.2 1.8 -Area of Debridement (cm) - Width 1.5 0.8 -Total Square (Area) (cm) 3.30 1.44 -Tunneling No No -Undermining/Tunneling No No -Circular Undermining No No -Wound/Ulcer Outcome Not Healed Not Healed -Ulcer Cleansing Rinsed/ Rinsed/ Irrigated with Irrigated with Saline Saline -Foul Odor after Cleansing No No -Bioengineered Tissue No Yes -Type of Bioengineered Tissue Epicord -Expiration Date 12/07/25 -Product Lot Number [id number] -Percent Used 100 -Lot number of Saline Used [id number] -Bleeding Controlled with Pressure Pressure -Offloading No No -Treatment Response Procedure Procedure Tolerated Well Tolerated Well -Debridement - Subq, 1st 20sq cm No -Debridement - Muscle / Fascia, 1st Yes 20sq cm -Apply Skin Sub - 1st 25 sq cm - Legs 1 -Epicord (per sq cm) 6 Pain Scale: 0-10 Numeric Is Patient Pain Free? Yes Yes - Nurse 3 - General Ulcer D/C NN Start: 04/09/21 14:24 Freq: Status: Active Protocol: Activity Type Activity Date Activity User E-Sign Co-Sign Detail Recorded Client Recorded Date Recorded By Document 04/09/21 15:13 KRISHNA [id number] 04/09/21 15:14 KRISHNA 04/09/21 15:13 Wound Care Nurse 3 #9 BKA POST OP -Ulcer Cleansing Rinsed/ Irrigated with Saline -Negative Pressure Wound Therapy Continue -Setting (mmHg) 150 -Negative Pressure is Continuous -NPWT Application Charge ($) NPWT </= 50 sq cm Pain Scale: 0-10 Numeric Is Patient Pain Free? Yes WC - Visit Discharge Discharge Condition Stable Ambulatory Status Wheelchair Transportation Private Auto Wound debrided: BKA anterior ulcer Laterality: Right Type of Debridement: Excisional debridement Anesthesia Used: 5% Lidocaine Gel Depth: Down to and including healthy tissue and in the subcutaneous layer Percentage of wound debrided: 100 Instrument Used: 3mm curette Tissue Removed: Subcutaneous tissue and slough. 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 She has been approved for Epifix and Epicord. Epicord #1 placed today since she still has bone exposure. Epifix was moistened, covered with wound veil that was secured with steri-strips. Covered with dry gauze dressing. Instructed patient not to get dressing wet and to change the outer guaze dressing as needed. Finished Vancomycin and Flagyl. Discussed that she needs to stop smoking and get her HgbA1C below 8 before she is able to have a bone graft to the hole in her right BKA bone. She states her blood sugars have been under much better control. She is keeping them in the 120's mostly. She had restarted Chantix and started Nicotine patch but has had a lot of side effects. She is trying very hard to stop smoking. She states she is motivated to get healthier. Encouraged increased protein intake and Vitamin C intake. She will follow up in 1 week.
[2021-04-30 10:35] VITALS: BP 128/68; PULSE 105; RESP 20; TEMP 36.7; BMI 36.5
--- NOTE | 2021-04-30 11:09 | PN.PCM_ITS ---
History of Present Illness Date of Service: 04/30/21 Chief Complaint: Nohealing infected diabetic ulcer anterior aspect right BKA stump. History of Wound: Surgery 01/02/21 - Surgical preparation anterior aspect right BKA stump with incision and drainage and excisional debridement nonhealing painful infected diabetic ulcer (12 cm2) and partial ostectomy tibia for osteomyelitis. Operative tissue cultures positive for Corynebacterium amycolatum, Anaerobic cocci and Fingoldia magna. Operative bone cultures positive for Anaerobic cocci and Fingoldia magna. Pathology of the bone was negative for acute osteomyelitis. She was treated with IV Vanc that was started 01/02/21 and Flagyl. PICC line pulled 01/15/21. Wound care - She has been approved for Epicord and Epifix. Epicord #2 placed today since she still has bone exposure. Covered with wound veil, secured with steri-strips, covered with Mepilex dressing. JOSE D wrap for compression. Surgery 12/07/19 - 1. Surgical preparation right BKA stump with incision and drainage and excisional debridement infected hematoma (19.25 cm2). 2. Partial ostectomy tibia for osteomyelitis. Wound care- Finished Epicord and Epifix. She has been using Regranex daily. She is complaining of increased pain at the ulcer site and states that she had drainage that she thought looked infected. Wound cultures obtained on 09/11/20 and were positive for Entercoccus faecalis and Anaerobic cocci. She has been taking Augmentin and a probiotic. Operative bone culture and tissue culture from 12/07/19 showed Staphylococcus aureus. She was treated with Doxycycline. Pathology was negative for osteomyelitis. Pathology from 06/26 was positive for osteomyelitis. Her HgA1c from 12/07/19 was 10.5. Prealbumin from 12/07/19 was 14. Another wound culture was obtained on 02/21/20. It showed Enterococcus faecalis. She was started on Augmentin and has finished them. She had another wound culture on 07/11/20. It showed Anaerococcus prevoti and Anaerobic cocci. She was placed on Augmentin and has finished them. An MRI was done on 10/13/20. It showed subtle area of abnormal signal within the distal tibial stump anteriorly with overlying soft tissue thinning and edema. This may represent early osteomyelitis. I do not see a definite abscess. It may be of benefit to repeat the study with intravenous contrast for further evaluation if clinically indicated. She denies fever today and states her appetite is ok. Progress of Wound: Improved, small amount of bone is still exposed. Objective Data Objective Data Vital Signs: Vital Signs Temp Pulse Resp BP Pulse Ox 98.1 F 105 H 20 H 128/68 H 99 04/30/21 10:35 04/30/21 10:35 04/30/21 10:35 04/30/21 10:35 04/08/21 00:15 Weight: 203 lb Body Mass Index (BMI) 36.5 Charges/Coding Procedures Integumentary 150xxx-152xx: 74832 Skin sub graft trnk/arm/leg Physical Exam Const alert and oriented x3 General Appearance: cooperative HEENT normocephalic Eyes PERRL Lymph Lymphatic: no lymphedema noted Resp normal respiratory effort Cardio regular rate GI non-tender Palpation: soft Extremity normal capillary refill Skin Wound Narrative: Right BKA stump ulcer is beefy pink, bone is still exposed. Neuro CN's II-XII intact bilaterally Psych Appearance: grossly normal Debridement Note Debridement Note Post-Debridement Measurements and Additional Note: Post-Debridement Measurements/Treatment - Nurse 1 - General Ulcer Assessment Start: 04/09/21 14:24 Freq: Status: Active Protocol: KRISTIE Activity Type Activity Date Activity User E-Sign Co-Sign Detail Recorded Client Recorded Date Recorded By Document 04/09/21 14:24 KR [id number] 04/09/21 14:26 KR Document 04/23/21 14:17 DL [id number] 04/23/21 14:21 DL Document 04/30/21 10:35 DL [id number] 04/30/21 10:40 DL 04/09/21 04/23/21 04/30/21 14:24 14:17 10:35 - Today's Visit Information Type of service Follow-up Visit Follow-up Visit Follow-up Visit (Physician/REMOTE RUBY ON RAILS DEVELOPER (Physician/REMOTE RUBY ON RAILS DEVELOPER (Physician/REMOTE RUBY ON RAILS DEVELOPER ) ) ) Arrival Mode Wheelchair Wheelchair Ambulatory, Walker Transfer Assistance None None Patient Identification Verified (Name & Yes Yes Yes ) Patient Requires Transmission-Based No No Precautions Finger Stick Blood Sugar(mg/dl) (if 132 138 indicated): Blood Sugar Stated by Stated by Patient Patient Height and Weight Body Mass Index (BMI) 36.5 36.5 36.5 BMI Classification Obese Obese Obese Vital Signs Temperature (97.8 F-99.1 F) 96.4 F L 98.4 F 98.1 F Temperature Source Temporal Temporal Temporal Pulse Rate (60-100) 107 H 101 H 105 H Pulse Location Monitor Monitor Monitor Respiratory Rate (12-18) 20 H 20 H Respiratory rate source Observation Observation Blood Pressure (90/60-120/80) 118/73 110/77 128/68 H Blood Pressure Mean (mm Hg) 88 88 88 Source Monitor Monitor Monitor Position Semi-Fowlers Blood Pressure Location Right Arm History Since Last Visit- (Skip if this is Patient's initial visit) Have you changed medications since your No No No last visit? Any new allergies or adverse reactions No No No Had a fall/change in ADL's that may No No No increase risk of falls Signs or symptoms of abuse and/or No No No neglect since last visit Have you been in the hospital since your No No No last visit? Has dressing in place as prescribed Yes Yes Yes Has compression in place as prescribed N/A Yes N/A Has offloadiing in place as prescribed N/A N/A Yes Experienced any changes in pain level or No No No management Pain Scale: 0-10 Numeric Is Patient Pain Free? Yes Yes Yes WC - Nurse 1 - General Ulcer Measurement Start: 04/09/21 14:24 Freq: Status: Active Protocol: Activity Type Activity Date Activity User E-Sign Co-Sign Detail Recorded Client Recorded Date Recorded By Document 04/09/21 14:24 KR [id number] 04/09/21 14:26 KR Document 04/23/21 14:17 DL [id number] 04/23/21 14:21 DL Document 04/30/21 10:35 DL [id number] 04/30/21 10:40 DL 04/09/21 04/23/21 04/30/21 14:24 14:17 10:35 Wound Center Nurse 1 #9 BKA POST OP -Current Size (cm) - Length 1.9 1.5 2.6 -Current Size (cm) - Width 1.4 0.7 1.4 -Current Size (cm) - Depth 0.3 0.2 0.2 -Total Square Cm 2.66 1.05 3.64 -Photo Taken No No -Exudate Amt Small Medium Small -Exudate Type Serosanguineous Serosanguineous Serosanguineous -Wound Margin Distinct, Distinct, Distinct, Outline Outline Outline Attached Attached Attached -Granulation Amt Small (1-33%) Medium (34-66%) None Present (0 %) -Granulation Quality [place] -Necrosis Amt Small (1-33%) Medium (34-66%) Large (67-100%) -Necrotic Tissue Type Adherent Slough Adherent Slough Adherent Slough -Structure Exposed Bone,Fat Layer Bone Bone Exposed -Texture (Love-wound Skin Appearance) Assessed, Scarring Scarring Scarring -Moisture (Love-wound Skin Appearance) No Abnormality, No Abnormality No Abnormality Assessed -Color (Love-wound Skin Appearance) No Abnormality, No Abnormality Assessed Assessed -Temperature (Love-wound Skin No Abnormality No Abnormality No Abnormality Appearance) (Pt Warm) (Pt Warm) (Pt Warm) -Tenderness on Palpation (Love-wound No No No Skin Appearance) -Ulcer Cleansing Rinsed/ Wound Cleanser Wound Cleanser Irrigated with Saline -Foul Odor after Cleansing No No No -Anesthetic Used 4% Lidocaine 4% Lidocaine 5% Lidocaine Solution Solution Gel WC - Nurse 2 - General Ulcer CM Notes Start: 04/09/21 14:24 Freq: Status: Active Protocol: Activity Type Activity Date Activity User E-Sign Co-Sign Detail Recorded Client Recorded Date Recorded By Document 04/09/21 14:42 [id number] 04/09/21 14:46 Document 04/23/21 14:52 [id number] 04/23/21 14:54 Document 04/30/21 10:55 [id number] 04/30/21 11:01 04/09/21 04/23/21 04/30/21 14:42 14:52 10:55 Wound Center Nurse 2 #9 BKA POST OP -Time 14:43 14:52 10:56 -Correct Patient Yes Yes Yes -Correct Side, Site, Position Yes Yes Yes -Correct Procedure Yes Yes Yes -Procedure Performed Yes Yes Yes -Type of Procedure Debridement Debridement Incision & Drainage -Clinical Debridement Muscle / Fascia Subcutaneous Subcutaneous -Tissue Removed Muscle Subcutaneous Subcutaneous -Post Debridement (cm) - Length 2.2 1.8 1.5 -Post Debridement (cm) - Width 1.5 0.8 1 -Post Debridement (cm) - Depth 0.3 0.4 0.4 -Total Square (Post) (cm) 3.30 1.44 1.5 -Area of Debridement (cm) - Length 2.2 1.8 1.5 -Area of Debridement (cm) - Width 1.5 0.8 1 -Total Square (Area) (cm) 3.30 1.44 1.5 -Tunneling No No No -Undermining/Tunneling No No No -Circular Undermining No No No -Wound/Ulcer Outcome Not Healed Not Healed Not Healed -Ulcer Cleansing Rinsed/ Rinsed/ Rinsed/ Irrigated with Irrigated with Irrigated with Saline Saline Saline -Foul Odor after Cleansing No No No -Bioengineered Tissue No Yes Yes -Type of Bioengineered Tissue Epicord Epicord -Expiration Date 12/07/25 12/07/25 -Product Lot Number [id number] -Percent Used 100 100 -Lot number of Saline Used [id number] -Bleeding Controlled with Pressure Pressure Pressure -Offloading No No No -Treatment Response Procedure Procedure Procedure Tolerated Well Tolerated Well Tolerated Well -Debridement - Subq, 1st 20sq cm No No -Debridement - Muscle / Fascia, 1st Yes 20sq cm -Apply Skin Sub - 1st 25 sq cm - Legs 1 1 -Epicord (per sq cm) 6 6 Pain Scale: 0-10 Numeric Is Patient Pain Free? Yes Yes Yes - Nurse 3 - General Ulcer D/C NN Start: 04/09/21 14:24 Freq: Status: Active Protocol: Activity Type Activity Date Activity User E-Sign Co-Sign Detail Recorded Client Recorded Date Recorded By Document 04/09/21 15:13 KRISHNA [id number] 04/09/21 15:14 KRISHNA 04/09/21 15:13 Wound Care Nurse 3 #9 BKA POST OP -Ulcer Cleansing Rinsed/ Irrigated with Saline -Negative Pressure Wound Therapy Continue -Setting (mmHg) 150 -Negative Pressure is Continuous -NPWT Application Charge ($) NPWT </= 50 sq cm Pain Scale: 0-10 Numeric Is Patient Pain Free? Yes - Visit Discharge Discharge Condition Stable Ambulatory Status Wheelchair Transportation Private Auto Wound debrided: BKA stump ulcer Laterality: Right Type of Debridement: Excisional debridement Anesthesia Used: 5% Lidocaine Gel Depth: Down to and including healthy tissue, in the subcutaneous layer and to bone Percentage of wound debrided: 100 Instrument Used: 3mm curette Tissue Removed: Subcutaneous tissue and slough with bone exposure Severity: Fat Layer Exposed Amount of bleeding with debridement: Mild Bleeding Controlled with: Pressure and Compression and gauze Patient tolerated procedure: Patient tolerated procedure well Assessment/Plan Assessment/Plan 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: CODE(S): T87.89 - Other complications of amputation stump; L97.919 - Non- pressure chronic ulcer of unspecified part of right lower leg with unspecified severity (2) History of osteomyelitis: CODE(S): Z87.39 - Personal history of other diseases of the musculoskeletal system and connective tissue (3) Acute post-operative pain: CODE(S): G89.18 - Other acute postprocedural pain (4) Debility: CODE(S): R53.81 - Other malaise (5) DM2 (diabetes mellitus, type 2): CODE(S): E11.9 - Type 2 diabetes mellitus without complications QUALIFIERS: Diabetes mellitus complication detail: with other skin complication Diabetes mellitus intermediate insulin use: with manager terminal use (6) Tobacco abuse: CODE(S): Z72.0 - Tobacco use PLAN: Wound care - She has been approved for Epifix and Epicord. Epicord #2 placed today since she still has bone exposure. Epifix was moistened, covered with wound veil that was secured with steri-strips. Covered with Mepilex dry dressing. Instructed patient not to get dressing wet and to change the outer guaze dressing as needed. Finished Vancomycin and Flagyl. Discussed that she needs to stop smoking and get her HgbA1C below 8 before she is able to have a bone graft to the hole in her right BKA bone. She states her blood sugars have been under much better control. She is keeping them in the 120's mostly. She had restarted Chantix and started Nicotine patch but has had a lot of side effects. She is trying very hard to stop smoking. She states she is motivated to get healthier. HgbA1c 8.1 on 04/25/21. Encouraged increased protein intake and Vitamin C intake. She will follow up in 1 week.
[2021-05-07 13:47] VITALS: BP 121/68; PULSE 85; TEMP 36.2; BMI 36.5
--- NOTE | 2021-05-07 15:12 | PCM.WC.PN ---
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 History of Wound: Surgery 01/02/21 - Surgical preparation anterior aspect right BKA stump with incision and drainage and excisional debridement nonhealing painful infected diabetic ulcer (12 cm2) and partial ostectomy tibia for osteomyelitis. Operative tissue cultures positive for Corynebacterium amycolatum, Anaerobic cocci and Fingoldia magna. Operative bone cultures positive for Anaerobic cocci and Fingoldia magna. Pathology of the bone was negative for acute osteomyelitis. She was treated with IV Vanc that was started 01/02/21 and Flagyl. PICC line pulled 01/15/21. Wound care - She has been approved for Epicord and Epifix. Epicord #3 placed today since she still has bone exposure. Covered with wound veil, secured with steri-strips, covered with Mepilex dressing. JAVIER wrap for compression. Surgery 12/07/19 - 1. Surgical preparation right BKA stump with incision and drainage and excisional debridement infected hematoma (19.25 cm2). 2. Partial ostectomy tibia for osteomyelitis. Wound care- Finished Epicord and Epifix. She has been using Regranex daily. She is complaining of increased pain at the ulcer site and states that she had drainage that she thought looked infected. Wound cultures obtained on 09/11/20 and were positive for Entercoccus faecalis and Anaerobic cocci. She has been taking Augmentin and a probiotic. Operative bone culture and tissue culture from 12/07/19 showed Staphylococcus aureus. She was treated with Doxycycline. Pathology was negative for osteomyelitis. Pathology from 06/26 was positive for osteomyelitis. Her HgA1c from 12/07/19 was 10.5. Prealbumin from 12/07/19 was 14. Another wound culture was obtained on 02/21/20. It showed Enterococcus faecalis. She was started on Augmentin and has finished them. She had another wound culture on 07/11/20. It showed Anaerococcus prevoti and Anaerobic cocci. She was placed on Augmentin and has finished them. An MRI was done on 10/13/20. It showed subtle area of abnormal signal within the distal tibial stump anteriorly with overlying soft tissue thinning and edema. This may represent early osteomyelitis. I do not see a definite abscess. It may be of benefit to repeat the study with intravenous contrast for further evaluation if clinically indicated. She denies fever today and states her appetite is ok. Progress of Wound: Improved, small amount of bone is still exposed. Objective Data Objective Data Vital Signs: Vital Signs Temp Pulse Resp BP Pulse Ox 97.1 F L 85 20 H 121/68 H 99 05/07/21 13:47 05/07/21 13:47 04/30/21 10:35 05/07/21 13:47 04/08/21 00:15 Weight: 203 lb Body Mass Index (BMI) 36.5 Charges/Coding Procedures Integumentary 150xxx-152xx: [id number] Skin sub graft trnk/arm/leg Physical Exam Const alert and oriented x3 General Appearance: cooperative HEENT normocephalic Head and Scalp: atraumatic Eyes PERRL Lymph Lymphatic: no lymphedema noted Resp normal respiratory effort Cardio regular rate GI non-tender Palpation: soft Extremity normal capillary refill Skin Wound Narrative: Right BKA ulcer on anterior portion of stump. It is smaller in size, but there continues to be some bone exposure. It is extremely painful to palpation and debridement. Neuro CN's II-XII intact bilaterally Psych Appearance: grossly normal Debridement Note Debridement Note Post-Debridement Measurements and Additional Note: Post-Debridement Measurements/Treatment - Nurse 1 - General Ulcer Assessment Start: 04/09/21 14:24 Freq: Status: Active Protocol: SOL.HEMAL Activity Type Activity Date Activity User E-Sign Co-Sign Detail Recorded Client Recorded Date Recorded By Document 04/09/21 14:24 KR [id number] 04/09/21 14:26 KR Document 04/23/21 14:17 DL [id number] 04/23/21 14:21 DL Document 04/30/21 10:35 DL [id number] 04/30/21 10:40 DL Document 05/07/21 13:47 AK [id number] 05/07/21 13:49 AK 04/09/21 04/23/21 04/30/21 14:24 14:17 10:35 - Today's Visit Information Type of service Follow-up Visit Follow-up Visit Follow-up Visit (Physician/UNDERWRITING MANAGER (Physician/UNDERWRITING MANAGER (Physician/UNDERWRITING MANAGER ) ) ) Arrival Mode Wheelchair Wheelchair Ambulatory, Walker Transfer Assistance None None Patient Identification Verified (Name & Yes Yes Yes ) Patient Requires Transmission-Based No No Precautions Finger Stick Blood Sugar(mg/dl) (if 132 138 indicated): Blood Sugar Stated by Stated by Patient Patient Height and Weight Body Mass Index (BMI) 36.5 36.5 36.5 BMI Classification Obese Obese Obese Vital Signs Temperature (97.8 F-99.1 F) 96.4 F L 98.4 F 98.1 F Temperature Source Temporal Temporal Temporal Pulse Rate (60-100) 107 H 101 H 105 H Pulse Location Monitor Monitor Monitor Respiratory Rate (12-18) 20 H 20 H Respiratory rate source Observation Observation Blood Pressure (90/60-120/80) 118/73 110/77 128/68 H Blood Pressure Mean (mm Hg) 88 88 88 Source Monitor Monitor Monitor Position Semi-Fowlers Blood Pressure Location Right Arm History Since Last Visit- (Skip if this is Patient's initial visit) Have you changed medications since your No No No last visit? Any new allergies or adverse reactions No No No Had a fall/change in ADL's that may No No No increase risk of falls Signs or symptoms of abuse and/or No No No neglect since last visit Have you been in the hospital since your No No No last visit? Has dressing in place as prescribed Yes Yes Yes Has compression in place as prescribed N/A Yes N/A Has offloadiing in place as prescribed N/A N/A Yes Experienced any changes in pain level or No No No management Right Footwear Pain Scale: 0-10 Numeric Is Patient Pain Free? Yes Yes Yes 05/07/21 13:47 WC - Today's Visit Information Type of service Follow-up Visit (Physician/UNDERWRITING MANAGER ) Arrival Mode Wheelchair Transfer Assistance Patient Identification Verified (Name & Yes ) Patient Requires Transmission-Based Precautions Finger Stick Blood Sugar(mg/dl) (if indicated): Blood Sugar Height and Weight Body Mass Index (BMI) 36.5 BMI Classification Obese Vital Signs Temperature (97.8 F-99.1 F) 97.1 F L Temperature Source Temporal Pulse Rate (60-100) 85 Pulse Location Monitor Respiratory Rate (12-18) Respiratory rate source Blood Pressure (90/60-120/80) 121/68 H Blood Pressure Mean (mm Hg) 85 Source Monitor Position Blood Pressure Location History Since Last Visit- (Skip if this is Patient's initial visit) Have you changed medications since your No last visit? Any new allergies or adverse reactions No Had a fall/change in ADL's that may No increase risk of falls Signs or symptoms of abuse and/or No neglect since last visit Have you been in the hospital since your No last visit? Has dressing in place as prescribed Yes Has compression in place as prescribed N/A Has offloadiing in place as prescribed N/A Experienced any changes in pain level or No management Right Footwear Regular Shoe Pain Scale: 0-10 Numeric Is Patient Pain Free? WC - Nurse 1 - General Ulcer Measurement Start: 04/09/21 14:24 Freq: Status: Active Protocol: Activity Type Activity Date Activity User E-Sign Co-Sign Detail Recorded Client Recorded Date Recorded By Document 04/09/21 14:24 KR [id number] 04/09/21 14:26 KR Document 04/23/21 14:17 DL [id number] 04/23/21 14:21 DL Document 04/30/21 10:35 DL [id number] 04/30/21 10:40 DL Document 05/07/21 13:47 AK [id number] 05/07/21 13:49 AK 04/09/21 04/23/21 04/30/21 14:24 14:17 10:35 Wound Center Nurse 1 #9 BKA POST OP -Current Size (cm) - Length 1.9 1.5 2.6 -Current Size (cm) - Width 1.4 0.7 1.4 -Current Size (cm) - Depth 0.3 0.2 0.2 -Total Square Cm 2.66 1.05 3.64 -Photo Taken No No -Tunneling -Undermining/Tunneling -Circular Undermining -Exudate Amt Small Medium Small -Exudate Type Serosanguineous Serosanguineous Serosanguineous -Wound Margin Distinct, Distinct, Distinct, Outline Outline Outline Attached Attached Attached -Granulation Amt Small (1-33%) Medium (34-66%) None Present (0 %) -Granulation Quality [place] -Necrosis Amt Small (1-33%) Medium (34-66%) Large (67-100%) -Necrotic Tissue Type Adherent Slough Adherent Slough Adherent Slough -Structure Exposed Bone,Fat Layer Bone Bone Exposed -Texture (Love-wound Skin Appearance) Assessed, Scarring Scarring Scarring -Moisture (Love-wound Skin Appearance) No Abnormality, No Abnormality No Abnormality Assessed -Color (Love-wound Skin Appearance) No Abnormality, No Abnormality Assessed Assessed -Temperature (Love-wound Skin No Abnormality No Abnormality No Abnormality Appearance) (Pt Warm) (Pt Warm) (Pt Warm) -Tenderness on Palpation (Love-wound No No No Skin Appearance) -Ulcer Cleansing Rinsed/ Wound Cleanser Wound Cleanser Irrigated with Saline -Foul Odor after Cleansing No No No -Anesthetic Used 4% Lidocaine 4% Lidocaine 5% Lidocaine Solution Solution Gel 05/07/21 13:47 Wound Center Nurse 1 #9 BKA POST OP -Current Size (cm) - Length 1.4 -Current Size (cm) - Width 1 -Current Size (cm) - Depth 0.2 -Total Square Cm 1.4 -Photo Taken No -Tunneling No -Undermining/Tunneling No -Circular Undermining No -Exudate Amt Large -Exudate Type Serosanguineous -Wound Margin Distinct, Outline Attached -Granulation Amt None Present (0 %) -Granulation Quality -Necrosis Amt Large (67-100%) -Necrotic Tissue Type Adherent Slough -Structure Exposed N/A -Texture (Love-wound Skin Appearance) No Abnormality, Assessed -Moisture (Love-wound Skin Appearance) No Abnormality, Assessed -Color (Love-wound Skin Appearance) No Abnormality, Assessed -Temperature (Love-wound Skin No Abnormality Appearance) (Pt Warm) -Tenderness on Palpation (Love-wound No Skin Appearance) -Ulcer Cleansing Rinsed/ Irrigated with Saline -Foul Odor after Cleansing -Anesthetic Used 4% Lidocaine Solution,5% Lidocaine Gel WC - Nurse 2 - General Ulcer CM Notes Start: 04/09/21 14:24 Freq: Status: Active Protocol: Activity Type Activity Date Activity User E-Sign Co-Sign Detail Recorded Client Recorded Date Recorded By Document 04/09/21 14:42 [id number] 04/09/21 14:46 Document 04/23/21 14:52 [id number] 04/23/21 14:54 Document 04/30/21 10:55 [id number] 04/30/21 11:01 Document 05/07/21 13:56 [id number] 05/07/21 14:00 04/09/21 04/23/21 04/30/21 14:42 14:52 10:55 Wound Center Nurse 2 #9 BKA POST OP -Time 14:43 14:52 10:56 -Correct Patient Yes Yes Yes -Correct Side, Site, Position Yes Yes Yes -Correct Procedure Yes Yes Yes -Procedure Performed Yes Yes Yes -Type of Procedure Debridement Debridement Incision & Drainage -Clinical Debridement Muscle / Fascia Subcutaneous Subcutaneous -Tissue Removed Muscle Subcutaneous Subcutaneous -Post Debridement (cm) - Length 2.2 1.8 1.5 -Post Debridement (cm) - Width 1.5 0.8 1 -Post Debridement (cm) - Depth 0.3 0.4 0.4 -Total Square (Post) (cm) 3.30 1.44 1.5 -Area of Debridement (cm) - Length 2.2 1.8 1.5 -Area of Debridement (cm) - Width 1.5 0.8 1 -Total Square (Area) (cm) 3.30 1.44 1.5 -Tunneling No No No -Undermining/Tunneling No No No -Circular Undermining No No No -Wound/Ulcer Outcome Not Healed Not Healed Not Healed -Ulcer Cleansing Rinsed/ Rinsed/ Rinsed/ Irrigated with Irrigated with Irrigated with Saline Saline Saline -Foul Odor after Cleansing No No No -Bioengineered Tissue No Yes Yes -Type of Bioengineered Tissue Epicord Epicord -Expiration Date 12/07/25 12/07/25 -Product Lot Number [id number] -Percent Used 100 100 -Lot number of Saline Used [id number] -Bleeding Controlled with Pressure Pressure Pressure -Offloading No No No -Treatment Response Procedure Procedure Procedure Tolerated Well Tolerated Well Tolerated Well -Debridement - Subq, 1st 20sq cm No No -Debridement - Muscle / Fascia, 1st Yes 20sq cm -Apply Skin Sub - 1st 25 sq cm - Legs 1 1 -Epicord (per sq cm) 6 6 Pain Scale: 0-10 Numeric Is Patient Pain Free? Yes Yes Yes 05/07/21 13:56 Wound Center Nurse 2 #9 BKA POST OP -Time 13:56 -Correct Patient Yes -Correct Side, Site, Position Yes -Correct Procedure Yes -Procedure Performed Yes -Type of Procedure Debridement -Clinical Debridement Subcutaneous -Tissue Removed Subcutaneous -Post Debridement (cm) - Length 1.2 -Post Debridement (cm) - Width 1 -Post Debridement (cm) - Depth 0.3 -Total Square (Post) (cm) 1.2 -Area of Debridement (cm) - Length 1.2 -Area of Debridement (cm) - Width 1 -Total Square (Area) (cm) 1.2 -Tunneling No -Undermining/Tunneling No -Circular Undermining No -Wound/Ulcer Outcome Not Healed -Ulcer Cleansing Rinsed/ Irrigated with Saline -Foul Odor after Cleansing No -Bioengineered Tissue Yes -Type of Bioengineered Tissue Epicord -Expiration Date 12/07/25 -Product Lot Number [id number] -Percent Used 100 -Lot number of Saline Used [id number] -Bleeding Controlled with Pressure -Offloading No -Treatment Response Procedure Tolerated Well -Debridement - Subq, 1st 20sq cm No -Debridement - Muscle / Fascia, 1st 20sq cm -Apply Skin Sub - 1st 25 sq cm - Legs 1 -Epicord (per sq cm) 6 Pain Scale: 0-10 Numeric Is Patient Pain Free? Yes - Nurse 3 - General Ulcer D/C NN Start: 04/09/21 14:24 Freq: Status: Active Protocol: Activity Type Activity Date Activity User E-Sign Co-Sign Detail Recorded Client Recorded Date Recorded By Document 04/09/21 15:13 [id number] 04/09/21 15:14 KR Document 04/30/21 11:46 [id number] 04/30/21 11:46 Document 05/07/21 14:04 [id number] 05/07/21 14:05 04/09/21 04/30/21 05/07/21 15:13 11:46 14:04 Wound Care Nurse 3 #9 BKA POST OP -Ulcer Cleansing Rinsed/ Rinsed/ Irrigated with Irrigated with Saline Saline -Foul Odor after Cleansing No -Negative Pressure Wound Therapy Continue -Setting (mmHg) 150 -Negative Pressure is Continuous -Primary Dressing Applied Mepilex Border Mepilex Border -NPWT Application Charge ($) NPWT </= 50 sq cm -Mepilex Border 1 1 Right -Compression Wrap Javier Wrap Pain Scale: 0-10 Numeric Is Patient Pain Free? Yes Yes Yes WC - Visit Discharge Discharge Condition Stable Stable Stable Ambulatory Status Wheelchair Ambulatory Wheelchair Transportation Private Auto Private Auto Private Auto Accompanied by DAUGHTER Medication Reconcilliation completed & Yes Yes provided to patient/care provider Clinical Summary of Care Provided Yes Yes Wound debrided: BKA anterior stump ulcer Laterality: Right Type of Debridement: Excisional debridement Anesthesia Used: 5% Lidocaine Gel Depth: Down to and including healthy tissue, in the subcutaneous layer and to bone Percentage of wound debrided: 100 Instrument Used: 3mm curette Tissue Removed: Subcutaneous tissue and slough with bone exposure. 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: CODE(S): T87.89 - Other complications of amputation stump; L97.919 - Non-pressure chronic ulcer of unspecified part of right lower leg with unspecified severity (2) Ulcer of right leg: CODE(S): L97.919 - Non-pressure chronic ulcer of unspecified part of right lower leg with unspecified severity QUALIFIERS: Non-pressure ulcer stage: with fat layer exposed Qualified Code(s): L97.912 - Non-pressure chronic ulcer of unspecified part of right lower leg with fat layer exposed (3) 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: CODE(S): T87.89 - Other complications of amputation stump; M79.604 - Pain in right leg (4) Diabetic ulcer of lower extremity: CODE(S): E11.622 - Type 2 diabetes mellitus with other skin ulcer; L97.909 - Non-pressure chronic ulcer of unspecified part of unspecified lower leg with unspecified severity (5) Polyneuropathy due to type 2 diabetes mellitus: CODE(S): E11.42 - Type 2 diabetes mellitus with diabetic polyneuropathy (6) History of osteomyelitis: CODE(S): Z87.39 - Personal history of other diseases of the musculoskeletal system and connective tissue PLAN: Wound care - She has been approved for Epifix and Epicord. Epicord #3 placed today since she still has bone exposure. Epicord was moistened, covered with wound veil that was secured with steri-strips. Covered with Mepilex dry dressing. Instructed patient not to get dressing wet and to change the outer gauze/Mepilex dressing as needed. Finished Vancomycin and Flagyl. Discussed that she needs to stop smoking and get her HgbA1C below 8 before she is able to have a bone graft to the hole in her right BKA bone. She states her blood sugars have been under much better control. She is keeping them in the 120's mostly. She had restarted Chantix and started Nicotine patch but has had a lot of side effects. She is trying very hard to stop smoking. She states she is motivated to get healthier. HgbA1c 8.1 on 04/25/21. Encouraged increased protein intake and Vitamin C intake. She will follow up in 2 weeks due to the holiday..
== END 2021-05-08 23:59 ==
LOC: WC 13:30
PROVIDERS: Family Provider Internal Medicine; PCP Internal Medicine; Referring Provider Surgery; Visit Provider Nurse Practitioner Family
DX: E11.622 Type 2 diabetes mellitus with other skin ulcer (principal); T87.89 Other complications of amputation stump; Y83.8 Other surgical procedures as the cause of abnormal reaction of the patient, or of later complication, without mention of misadventure at the time of the procedure; L97.812 Non-pressure chronic ulcer of other part of right lower leg with fat layer exposed; Z87.39 Personal history of other diseases of the musculoskeletal system and connective tissue; E11.65 Type 2 diabetes mellitus with hyperglycemia; F17.200 Nicotine dependence, unspecified, uncomplicated; E11.42 Type 2 diabetes mellitus with diabetic polyneuropathy
CPT/HCPCS: 11043; 15271; 97605; Q4187

== ENCOUNTER 2021-06-07 13:00 | Outpatient (RCR) | payer MEDICARE, MEDICAID, SELFPAY ==
[2021-05-09 00:21] VITALS: BP 121/68; PULSE 85; RESP 20; TEMP 36.2; O2SAT 99; BMI 36.5
[2021-05-21 14:00] VITALS: BP 148/92; PULSE 101; TEMP 36.2; BMI 36.5
--- NOTE | 2021-05-21 15:08 | PCM.WC.PN ---
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 History of Wound: Surgery 01/02/21 - Surgical preparation anterior aspect right BKA stump with incision and drainage and excisional debridement nonhealing painful infected diabetic ulcer (12 cm2) and partial ostectomy tibia for osteomyelitis. Operative tissue cultures positive for Corynebacterium amycolatum, Anaerobic cocci and Fingoldia magna. Operative bone cultures positive for Anaerobic cocci and Fingoldia magna. Pathology of the bone was negative for acute osteomyelitis. She was treated with IV Vanc that was started 01/02/21 and Flagyl. PICC line pulled 01/15/21. Wound care - She has been approved for Epicord and Epifix. Epicord #4 placed today since she still has bone exposure. Covered with wound veil, secured with steri-strips, covered with Mepilex dressing. JOSE D wrap for compression. Surgery 12/07/19 - 1. Surgical preparation right BKA stump with incision and drainage and excisional debridement infected hematoma (19.25 cm2). 2. Partial ostectomy tibia for osteomyelitis. Wound cultures obtained on 09/11/20 and were positive for Entercoccus faecalis and Anaerobic cocci. She has been taking Augmentin and a probiotic. Operative bone culture and tissue culture from 12/07/19 showed Staphylococcus aureus. She was treated with Doxycycline. Pathology was negative for osteomyelitis. Pathology from 06/26 was positive for osteomyelitis. Her HgA1c from 12/07/19 was 10.5. Prealbumin from 12/07/19 was 14. Another wound culture was obtained on 02/21/20. It showed Enterococcus faecalis. She was started on Augmentin and has finished them. She had another wound culture on 07/11/20. It showed Anaerococcus prevoti and Anaerobic cocci. She was placed on Augmentin and has finished them. An MRI was done on 10/13/20. It showed subtle area of abnormal signal within the distal tibial stump anteriorly with overlying soft tissue thinning and edema. This may represent early osteomyelitis. I do not see a definite abscess. It may be of benefit to repeat the study with intravenous contrast for further evaluation if clinically indicated. She denies fever today and states her appetite is ok. Progress of Wound: Improved. Bone is almost completely covered. Objective Data Objective Data Vital Signs: Vital Signs Temp Pulse Resp BP Pulse Ox 97.2 F L 101 H 20 H 148/92 H 99 05/21/21 14:00 05/21/21 14:00 05/09/21 00:21 05/21/21 14:00 05/09/21 00:21 Weight: 203 lb Body Mass Index (BMI) 36.5 Charges/Coding Procedures Integumentary 150xxx-152xx: 37986 Skin sub graft trnk/arm/leg Physical Exam Const alert and oriented x3 General Appearance: cooperative HEENT normocephalic Eyes PERRL Resp normal respiratory effort Cardio regular rate GI Palpation: soft Extremity normal capillary refill Skin Wound Narrative: Right anterior BKA stump ulcer is smaller. There is a smaller area of bone exposure. Surrounding tissue is pink. THere is a little bit of depth at 6 o'clock that has improved since using the Epicord. Neuro CN's II-XII intact bilaterally Psych affect normal Debridement Note Debridement Note Wound debrided: Anterior BKA stump ulcer Laterality: Right Type of Debridement: Excisional debridement Anesthesia Used: 5% Lidocaine Gel Depth: Down to and including healthy tissue and in the subcutaneous layer Percentage of wound debrided: 100 Instrument Used: 3mm curette Tissue Removed: Subcutaneous tissue and slough, there is a little bone exposure. Severity: Fat Layer Exposed Amount of bleeding with debridement: Mild Bleeding Controlled with: Pressure Patient tolerated procedure: Patient tolerated procedure well Post-Debridement Measurements and Additional Note: Post-Debridement Measurements/Treatment - Nurse 1 - General Ulcer Assessment Start: 05/21/21 14:00 Freq: Status: Active Protocol: KRISTIE Activity Type Activity Date Activity User E-Sign Co-Sign Detail Recorded Client Recorded Date Recorded By Document 05/21/21 14:00 RI [id number] 05/21/21 14:03 BURAK 05/21/21 14:00 - Today's Visit Information Type of service Follow-up Visit (Physician/ARCHITECT MARINE ) Arrival Mode Ambulatory, Other Patient Identification Verified (Name & Yes ) Patient Requires Transmission-Based No Precautions Safety Precautions NA Height and Weight Body Mass Index (BMI) 36.5 BMI Classification Obese Vital Signs Temperature (97.8 F-99.1 F) 97.2 F L Temperature Source Temporal Pulse Rate (60-100) 101 H Pulse Location Monitor Blood Pressure (90/60-120/80) 148/92 H Blood Pressure Mean (mm Hg) 110 Source Monitor History Since Last Visit- (Skip if this is Patient's initial visit) Have you changed medications since your No last visit? Any new allergies or adverse reactions No Had a fall/change in ADL's that may No increase risk of falls Signs or symptoms of abuse and/or No neglect since last visit Have you been in the hospital since your No last visit? Has dressing in place as prescribed Yes Has compression in place as prescribed No Has offloadiing in place as prescribed N/A Experienced any changes in pain level or No management Left Footwear Regular Shoe WC - Nurse 1 - General Ulcer Measurement Start: 05/21/21 14:00 Freq: Status: Active Protocol: Activity Type Activity Date Activity User E-Sign Co-Sign Detail Recorded Client Recorded Date Recorded By Document 05/21/21 14:00 BURAK [id number] 05/21/21 14:03 BURAK 05/21/21 14:00 Wound Center Nurse 1 #9 BKA POST OP -Current Size (cm) - Length 0.8 -Current Size (cm) - Width 0.5 -Current Size (cm) - Depth 0.2 -Total Square Cm 0.40 -Photo Taken No -Tunneling Yes -Tunneling Position (O'clock) 5 -Tunneling Distance (cm) 0.2 -Circular Undermining No -Change in Wound Grade/Stage No -Exudate Amt Medium -Exudate Type Serosanguineous -Wound Margin Distinct, Outline Attached -Granulation Quality N/A -Slough/Fibrin Yes -Necrosis Amt Small (1-33%) -Necrotic Tissue Type Adherent Slough -Structure Exposed Bone -Texture (Love-wound Skin Appearance) No Abnormality, Assessed -Moisture (Love-wound Skin Appearance) No Abnormality, Assessed -Color (Love-wound Skin Appearance) No Abnormality, Assessed -Temperature (Love-wound Skin No Abnormality Appearance) (Pt Warm) -Tenderness on Palpation (Love-wound Yes Skin Appearance) -Ulcer Cleansing Rinsed/ Irrigated with Saline -Anesthetic Used 4% Lidocaine Solution WC - Nurse 2 - General Ulcer CM Notes Start: 05/21/21 14:00 Freq: Status: Active Protocol: Activity Type Activity Date Activity User E-Sign Co-Sign Detail Recorded Client Recorded Date Recorded By Document 05/21/21 14:27 SHAYNA [id number] 05/21/21 14:34 SHAYNA 05/21/21 14:27 Wound Center Nurse 2 -Time 14:28 -Correct Patient Yes -Correct Side, Site, Position Yes -Correct Procedure Yes -Procedure Performed Yes -Type of Procedure Debridement -Clinical Debridement Subcutaneous -Tissue Removed Subcutaneous -Post Debridement (cm) - Length 1.1 -Post Debridement (cm) - Width 0.6 -Post Debridement (cm) - Depth 0.2 -Total Square (Post) (cm) 0.66 -Area of Debridement (cm) - Length 1.1 -Area of Debridement (cm) - Width 0.6 -Total Square (Area) (cm) 0.66 -Tunneling No -Undermining/Tunneling No -Circular Undermining No -Wound/Ulcer Outcome Not Healed -Ulcer Cleansing Rinsed/ Irrigated with Saline -Foul Odor after Cleansing No -Bioengineered Tissue Yes -Type of Bioengineered Tissue Epicord -Expiration Date 02/06/26 -Product Lot Number [id number] -Percent Used 100 -Lot number of Saline Used [id number] -Bleeding Controlled with NA -Offloading Yes -Type of Offloading Knee Walker -Treatment Response Procedure Tolerated Well -Debridement - Subq, 1st 20sq cm No -Apply Skin Sub - 1st 25 sq cm - Legs 1 -Epicord (per sq cm) 6 Pain Scale: 0-10 Numeric Is Patient Pain Free? Yes - Nurse 3 - General Ulcer D/C NN Start: 05/21/21 14:00 Freq: Status: Active Protocol: Activity Type Activity Date Activity User E-Sign Co-Sign Detail Recorded Client Recorded Date Recorded By Document 05/21/21 14:39 [id number] 05/21/21 14:39 05/21/21 14:39 Wound Care Nurse 3 #9 BKA POST OP -Ulcer Cleansing Rinsed/ Irrigated with Saline -Foul Odor after Cleansing No -Primary Dressing Applied Mepilex Border -Mepilex Border 1 Pain Scale: 0-10 Numeric Is Patient Pain Free? 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: CODE(S): T87.89 - Other complications of amputation stump; L97.919 - Non-pressure chronic ulcer of unspecified part of right lower leg with unspecified severity (2) Ulcer of right leg: CODE(S): L97.919 - Non-pressure chronic ulcer of unspecified part of right lower leg with unspecified severity QUALIFIERS: Non-pressure ulcer stage: with fat layer exposed Qualified Code(s): L97.912 - Non-pressure chronic ulcer of unspecified part of right lower leg with fat layer exposed (3) 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: CODE(S): T87.89 - Other complications of amputation stump; M79.604 - Pain in right leg (4) Diabetic ulcer of lower extremity: CODE(S): E11.622 - Type 2 diabetes mellitus with other skin ulcer; L97.909 - Non-pressure chronic ulcer of unspecified part of unspecified lower leg with unspecified severity (5) Polyneuropathy due to type 2 diabetes mellitus: CODE(S): E11.42 - Type 2 diabetes mellitus with diabetic polyneuropathy (6) History of osteomyelitis: CODE(S): Z87.39 - Personal history of other diseases of the musculoskeletal system and connective tissue PLAN: Wound care - She has been approved for Epifix and Epicord. Epicord #4 placed today since she still has bone exposure. Epicord was moistened, covered with wound veil that was secured with steri-strips. Covered with Mepilex dry dressing. Instructed patient not to get dressing wet and to change the outer gauze/Mepilex dressing as needed. Finished Vancomycin and Flagyl. Discussed that she needs to stop smoking and get her HgbA1C below 8 before she is able to have a bone graft to the hole in her right BKA bone. She states her blood sugars have been under much better control. She is keeping them in the 120's mostly. She had restarted Chantix and started Nicotine patch but has had a lot of side effects. She is trying very hard to stop smoking. She states she is motivated to get healthier. HgbA1c 8.1 on 04/25/21. Encouraged increased protein intake and Vitamin C intake. She will follow up in 1 week.
[2021-05-28 14:27] VITALS: BP 127/70; PULSE 89; TEMP 35.9; BMI 36.5
--- NOTE | 2021-05-28 15:28 | PCM.WC.PN ---
History of Present Illness Date of Service: 05/28/21 Chief Complaint: Nohealing infected diabetic ulcer anterior aspect right BKA stump. History of Wound: Surgery 01/02/21 - Surgical preparation anterior aspect right BKA stump with incision and drainage and excisional debridement nonhealing painful infected diabetic ulcer (12 cm2) and partial ostectomy tibia for osteomyelitis. Operative tissue cultures positive for Corynebacterium amycolatum, Anaerobic cocci and Fingoldia magna. Operative bone cultures positive for Anaerobic cocci and Fingoldia magna. Pathology of the bone was negative for acute osteomyelitis. She was treated with IV Vanc that was started 01/02/21 and Flagyl. PICC line pulled 01/15/21. Wound care - She has been approved for Epicord and Epifix. She has had 4 applications of Epicord. Epifix #1 (5th application of advanced wound product) placed today. She has a very small bone exposed. Covered with wound veil, secured with steri-strips, covered with Mepilex dressing. JOSE D wrap for compression. Surgery 12/07/19 - 1. Surgical preparation right BKA stump with incision and drainage and excisional debridement infected hematoma (19.25 cm2). 2. Partial ostectomy tibia for osteomyelitis. Wound cultures obtained on 09/11/20 and were positive for Entercoccus faecalis and Anaerobic cocci. She has been taking Augmentin and a probiotic. Operative bone culture and tissue culture from 12/07/19 showed Staphylococcus aureus. She was treated with Doxycycline. Pathology was negative for osteomyelitis. Pathology from 06/26 was positive for osteomyelitis. Her HgA1c from 12/07/19 was 10.5. Prealbumin from 12/07/19 was 14. Another wound culture was obtained on 02/21/20. It showed Enterococcus faecalis. She was started on Augmentin and has finished them. She had another wound culture on 07/11/20. It showed Anaerococcus prevoti and Anaerobic cocci. She was placed on Augmentin and has finished them. An MRI was done on 10/13/20. It showed subtle area of abnormal signal within the distal tibial stump anteriorly with overlying soft tissue thinning and edema. This may represent early osteomyelitis. I do not see a definite abscess. It may be of benefit to repeat the study with intravenous contrast for further evaluation if clinically indicated. She denies fever today and states her appetite is ok. Progress of Wound: Improved. Bone is almost completely covered. Objective Data Objective Data Vital Signs: Vital Signs Temp Pulse Resp BP Pulse Ox 96.7 F L 89 20 H 127/70 H 99 05/28/21 14:27 05/28/21 14:27 05/09/21 00:21 05/28/21 14:27 05/09/21 00:21 Weight: 203 lb Body Mass Index (BMI) 36.5 Charges/Coding Procedures Integumentary 150xxx-152xx: 35533 Skin sub graft trnk/arm/leg Physical Exam Const alert and oriented x3 General Appearance: cooperative HEENT normocephalic Head and Scalp: atraumatic Resp normal respiratory effort Cardio regular rate GI Palpation: soft Extremity normal capillary refill Skin Wound Narrative: Anterior right BKA stump ulcer with scant amount of bone exposure. She continues to have extreme pain with palpation. Neuro CN's II-XII intact bilaterally Psych Appearance: grossly normal Debridement Note Debridement Note Wound debrided: Anterior BKA stump Laterality: Right Type of Debridement: Excisional debridement Anesthesia Used: 5% Lidocaine Gel Depth: Down to and including healthy tissue and in the subcutaneous layer Percentage of wound debrided: 100 Instrument Used: 3mm curette Tissue Removed: Subcutaneous tissue and slough, scant amount of bone exposed. Severity: Fat Layer Exposed Amount of bleeding with debridement: Mild Bleeding Controlled with: Pressure Patient tolerated procedure: Patient tolerated procedure well Post-Debridement Measurements and Additional Note: Post-Debridement Measurements/Treatment - Nurse 1 - General Ulcer Assessment Start: 05/21/21 14:00 Freq: Status: Active Protocol: KRISTIE Activity Type Activity Date Activity User E-Sign Co-Sign Detail Recorded Client Recorded Date Recorded By Document 05/21/21 14:00 AK [id number] 05/21/21 14:03 AK Document 05/28/21 14:27 KR [id number] 05/28/21 14:28 KR 05/21/21 05/28/21 14:00 14:27 - Today's Visit Information Type of service Follow-up Visit Follow-up Visit (Physician/DIRECTOR CORPORATE SALES (Physician/DIRECTOR CORPORATE SALES ) ) Arrival Mode Ambulatory, Wheelchair Other Patient Identification Verified (Name & Yes Yes ) Patient Requires Transmission-Based No Precautions Safety Precautions NA Height and Weight Body Mass Index (BMI) 36.5 36.5 BMI Classification Obese Obese Vital Signs Temperature (97.8 F-99.1 F) 97.2 F L 96.7 F L Temperature Source Temporal Temporal Pulse Rate (60-100) 101 H 89 Pulse Location Monitor Monitor Blood Pressure (90/60-120/80) 148/92 H 127/70 H Blood Pressure Mean (mm Hg) 110 89 Source Monitor Monitor Position Semi-Fowlers Blood Pressure Location Left Arm History Since Last Visit- (Skip if this is Patient's initial visit) Have you changed medications since your No No last visit? Any new allergies or adverse reactions No No Had a fall/change in ADL's that may No No increase risk of falls Signs or symptoms of abuse and/or No No neglect since last visit Have you been in the hospital since your No No last visit? Has dressing in place as prescribed Yes Yes Has compression in place as prescribed No N/A Has offloadiing in place as prescribed N/A N/A Experienced any changes in pain level or No No management Left Footwear Regular Shoe Regular Shoe Right Footwear Regular Shoe Pain Scale: 0-10 Numeric Is Patient Pain Free? Yes WC - Nurse 1 - General Ulcer Measurement Start: 05/21/21 14:00 Freq: Status: Active Protocol: Activity Type Activity Date Activity User E-Sign Co-Sign Detail Recorded Client Recorded Date Recorded By Document 05/21/21 14:00 AK [id number] 05/21/21 14:03 AK Document 05/28/21 14:27 KR [id number] 05/28/21 14:28 KR 05/21/21 05/28/21 14:00 14:27 Wound Center Nurse 1 #9 BKA POST OP -Current Size (cm) - Length 0.8 1.1 -Current Size (cm) - Width 0.5 1.3 -Current Size (cm) - Depth 0.2 0.2 -Total Square Cm 0.40 1.43 -Photo Taken No -Tunneling Yes -Tunneling Position (O'clock) 5 -Tunneling Distance (cm) 0.2 -Circular Undermining No -Change in Wound Grade/Stage No -Exudate Amt Medium Small -Exudate Type Serosanguineous Serosanguineous -Wound Margin Distinct, Distinct, Outline Outline Attached Attached -Granulation Amt Small (1-33%) -Granulation Quality N/A [place] -Slough/Fibrin Yes -Necrosis Amt Small (1-33%) Medium (34-66%) -Necrotic Tissue Type Adherent Slough Adherent Slough -Structure Exposed Bone -Texture (Love-wound Skin Appearance) No Abnormality, Assessed, Assessed Scarring -Moisture (Love-wound Skin Appearance) No Abnormality, No Abnormality, Assessed Assessed -Color (Love-wound Skin Appearance) No Abnormality, No Abnormality, Assessed Assessed -Temperature (Love-wound Skin No Abnormality No Abnormality Appearance) (Pt Warm) (Pt Warm) -Tenderness on Palpation (Love-wound Yes No Skin Appearance) -Ulcer Cleansing Rinsed/ Rinsed/ Irrigated with Irrigated with Saline Saline -Foul Odor after Cleansing No -Anesthetic Used 4% Lidocaine 5% Lidocaine Solution Gel WC - Nurse 2 - General Ulcer CM Notes Start: 05/21/21 14:00 Freq: Status: Active Protocol: Activity Type Activity Date Activity User E-Sign Co-Sign Detail Recorded Client Recorded Date Recorded By Document 05/21/21 14:27 [id number] 05/21/21 14:34 Document 05/28/21 14:53 [id number] 05/28/21 15:02 05/21/21 05/28/21 14:27 14:53 Wound Center Nurse 2 #9 BKA POST OP -Time 14:28 14:54 -Correct Patient Yes Yes -Correct Side, Site, Position Yes Yes -Correct Procedure Yes Yes -Procedure Performed Yes Yes -Type of Procedure Debridement Debridement -Clinical Debridement Subcutaneous Subcutaneous -Tissue Removed Subcutaneous Subcutaneous -Post Debridement (cm) - Length 1.1 1 -Post Debridement (cm) - Width 0.6 1 -Post Debridement (cm) - Depth 0.2 0.6 -Total Square (Post) (cm) 0.66 1 -Area of Debridement (cm) - Length 1.1 1 -Area of Debridement (cm) - Width 0.6 1 -Total Square (Area) (cm) 0.66 1 -Tunneling No No -Undermining/Tunneling No No -Circular Undermining No No -Wound/Ulcer Outcome Not Healed Not Healed -Ulcer Cleansing Rinsed/ Not Cleansed Irrigated with Saline -Foul Odor after Cleansing No -Bioengineered Tissue Yes Yes -Type of Bioengineered Tissue Epicord Epifix 18mm Disc -Expiration Date 02/06/26 01/06/26 -Product Lot Number [id number] -Percent Used 100 100 -Lot number of Saline Used [id number] -Bleeding Controlled with NA Pressure -Offloading Yes Yes -Type of Offloading Knee Walker Knee Walker -Treatment Response Procedure Procedure Tolerated Well Tolerated Well -Debridement - Subq, 1st 20sq cm No No -Apply Skin Sub - 1st 25 sq cm - Legs 1 1 -Epicord (per sq cm) 6 -Epifix 18mm Disc 3 Pain Scale: 0-10 Numeric Is Patient Pain Free? Yes Yes - Nurse 3 - General Ulcer D/C NN Start: 05/21/21 14:00 Freq: Status: Active Protocol: Activity Type Activity Date Activity User E-Sign Co-Sign Detail Recorded Client Recorded Date Recorded By Document 05/21/21 14:39 [id number] 05/21/21 14:39 Document 05/28/21 15:03 [id number] 05/28/21 15:03 05/21/21 05/28/21 14:39 15:03 Wound Care Nurse 3 #9 BKA POST OP -Ulcer Cleansing Rinsed/ Rinsed/ Irrigated with Irrigated with Saline Saline -Foul Odor after Cleansing No No -Primary Dressing Applied Mepilex Border Mepilex Border -Mepilex Border 1 1 Pain Scale: 0-10 Numeric Is Patient Pain Free? 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: CODE(S): T87.89 - Other complications of amputation stump; L97.919 - Non-pressure chronic ulcer of unspecified part of right lower leg with unspecified severity (3) DM2 (diabetes mellitus, type 2): CODE(S): E11.9 - Type 2 diabetes mellitus without complications QUALIFIERS: Diabetes mellitus complication detail: with other skin complication Diabetes mellitus custodial insulin use: with termite treater helper use (4) Debility: CODE(S): R53.81 - Other malaise (5) History of osteomyelitis: CODE(S): Z87.39 - Personal history of other diseases of the musculoskeletal system and connective tissue (6) History of methicillin resistant staphylococcus aureus (MRSA): CODE(S): Z86.14 - Personal history of Methicillin resistant Staphylococcus aureus infection (7) Tobacco abuse: CODE(S): Z72.0 - Tobacco use PLAN: Wound care - She has been approved for Epifix and Epicord. 4 applications of Epicord. Epifix #1 (5th application advanced wound product) placed today. Epifix was moistened, covered with wound veil that was secured with steri-strips. Covered with Mepilex dry dressing. JOSE D wrap for compression. Instructed patient not to get dressing wet and to change the outer gauze/Mepilex dressing as needed. Finished Vancomycin and Flagyl. Discussed that she needs to stop smoking and get her HgbA1C below 8 before she is able to have a bone graft to the hole in her right BKA bone. She states her blood sugars have been under much better control. She is keeping them in the 120's mostly. She had restarted Chantix and started Nicotine patch but has had a lot of side effects. She is trying very hard to stop smoking. She states she is motivated to get healthier. HgbA1c 8.1 on 04/25/21. Encouraged increased protein intake and Vitamin C intake. She will follow up in 1 week as a courtesy visit with another provider.
[2021-06-07 13:10] VITALS: BP 142/76; PULSE 106; RESP 16; TEMP 36.3; BMI 36.5
--- NOTE | 2021-06-07 17:20 | PCM.WC.PN ---
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 History of Wound: Surgery 01/02/21 - Surgical preparation anterior aspect right BKA stump with incision and drainage and excisional debridement nonhealing painful infected diabetic ulcer (12 cm2) and partial ostectomy tibia for osteomyelitis. Operative tissue cultures positive for Corynebacterium amycolatum, Anaerobic cocci and Fingoldia magna. Operative bone cultures positive for Anaerobic cocci and Fingoldia magna. Pathology of the bone was negative for acute osteomyelitis. She was treated with IV Vanc that was started 01/02/21 and Flagyl. PICC line pulled 01/15/21. Wound care - She has been approved for Epicord and Epifix. She has had 4 applications of Epicord. Epifix #1 (5th application of advanced wound product) placed today. She has a very small bone exposed. Covered with wound veil, secured with steri-strips, covered with Mepilex dressing. JOSE D wrap for compression. Surgery 12/07/19 - 1. Surgical preparation right BKA stump with incision and drainage and excisional debridement infected hematoma (19.25 cm2). 2. Partial ostectomy tibia for osteomyelitis. Wound cultures obtained on 09/11/20 and were positive for Entercoccus faecalis and Anaerobic cocci. She has been taking Augmentin and a probiotic. Operative bone culture and tissue culture from 12/07/19 showed Staphylococcus aureus. She was treated with Doxycycline. Pathology was negative for osteomyelitis. Pathology from 06/26 was positive for osteomyelitis. Her HgA1c from 12/07/19 was 10.5. Prealbumin from 12/07/19 was 14. Another wound culture was obtained on 02/21/20. It showed Enterococcus faecalis. She was started on Augmentin and has finished them. She had another wound culture on 07/11/20. It showed Anaerococcus prevoti and Anaerobic cocci. She was placed on Augmentin and has finished them. An MRI was done on 10/13/20. It showed subtle area of abnormal signal within the distal tibial stump anteriorly with overlying soft tissue thinning and edema. This may represent early osteomyelitis. I do not see a definite abscess. It may be of benefit to repeat the study with intravenous contrast for further evaluation if clinically indicated. She denies fever today and states her appetite is ok. Progress of Wound: Improved. Bone is almost completely covered. Objective Data Objective Data Vital Signs: Vital Signs Temp Pulse Resp BP Pulse Ox 97.4 F L 106 H 16 142/76 H 99 06/07/21 13:10 06/07/21 13:10 06/07/21 13:10 06/07/21 13:10 05/09/21 00:21 Oxygen Delivery Method Room Air Weight: 203 lb Body Mass Index (BMI) 36.5 Charges/Coding Procedures Integumentary 150xxx-152xx: 84255 Skin sub graft trnk/arm/leg Physical Exam Const alert and oriented x3 General Appearance: cooperative HEENT normocephalic Head and Scalp: atraumatic Resp normal respiratory effort Cardio regular rate GI Palpation: soft Extremity normal capillary refill Skin Wound Narrative: Anterior right BKA stump ulcer with scant amount of bone exposure. She continues to have extreme pain with palpation. Neuro CN's II-XII intact bilaterally Psych Appearance: grossly normal Debridement Note Debridement Note Wound debrided: Anterior BKA stump Laterality: Right Type of Debridement: Excisional debridement Anesthesia Used: 5% Lidocaine Gel Depth: in the subcutaneous layer, to muscle and to bone Percentage of wound debrided: 100 Instrument Used: 3mm curette Tissue Removed: Slough and devitalized tissue Severity: Necrosis of Bone Amount of bleeding with debridement: Mild Bleeding Controlled with: Pressure Patient tolerated procedure: Patient tolerated procedure well Post-Debridement Measurements and Additional Note: Post-Debridement Measurements/Treatment - Nurse 1 - General Ulcer Assessment Start: 05/21/21 14:00 Freq: Status: Active Protocol: KRISTIE Activity Type Activity Date Activity User E-Sign Co-Sign Detail Recorded Client Recorded Date Recorded By Document 05/21/21 14:00 AK [id number] 05/21/21 14:03 AK Document 05/28/21 14:27 KR [id number] 05/28/21 14:28 KR Document 06/07/21 13:10 BM [id number] 06/07/21 13:18 BM 05/21/21 05/28/21 06/07/21 14:00 14:27 13:10 - Today's Visit Information Type of service Follow-up Visit Follow-up Visit Follow-up Visit (Physician/BIBLICAL STUDIES PROFESSOR (Physician/BIBLICAL STUDIES PROFESSOR (Physician/BIBLICAL STUDIES PROFESSOR ) ) ) Arrival Mode Ambulatory, Wheelchair Ambulatory, Other Walker Arrival Mode (Other) KNEE WALKER Transfer Assistance None Patient Identification Verified (Name & Yes Yes Yes ) Patient Requires Transmission-Based No No Precautions Safety Precautions NA Finger Stick Blood Sugar(mg/dl) (if 132 indicated): Blood Sugar Stated by Patient Height and Weight Body Mass Index (BMI) 36.5 36.5 36.5 BMI Classification Obese Obese Obese Vital Signs Temperature (97.8 F-99.1 F) 97.2 F L 96.7 F L 97.4 F L Temperature Source Temporal Temporal Temporal Pulse Rate (60-100) 101 H 89 106 H Pulse Location Monitor Monitor Monitor Respiratory Rate (12-18) 16 Respiratory rate source Observation Oxygen Delivery Method Room Air Blood Pressure (90/60-120/80) 148/92 H 127/70 H 142/76 H Blood Pressure Mean (mm Hg) 110 89 98 Source Monitor Monitor Monitor Position Semi-Fowlers Sitting Blood Pressure Location Left Arm Right Arm History Since Last Visit- (Skip if this is Patient's initial visit) Have you changed medications since your No No No last visit? Any new allergies or adverse reactions No No No Had a fall/change in ADL's that may No No No increase risk of falls Signs or symptoms of abuse and/or No No No neglect since last visit Have you been in the hospital since your No No No last visit? Has dressing in place as prescribed Yes Yes Yes Has compression in place as prescribed No N/A N/A Has offloadiing in place as prescribed N/A N/A N/A Experienced any changes in pain level or No No No management Left Footwear Regular Shoe Regular Shoe Right Footwear Regular Shoe Pain Scale: 0-10 Numeric Is Patient Pain Free? Yes WC - Nurse 1 - General Ulcer Measurement Start: 05/21/21 14:00 Freq: Status: Active Protocol: Activity Type Activity Date Activity User E-Sign Co-Sign Detail Recorded Client Recorded Date Recorded By Document 05/21/21 14:00 AK [id number] 05/21/21 14:03 AK Document 05/28/21 14:27 KR [id number] 05/28/21 14:28 KR Document 06/07/21 13:10 BMF [id number] 06/07/21 13:18 BMF 05/21/21 05/28/21 06/07/21 14:00 14:27 13:10 Wound Center Nurse 1 #9 BKA POST OP -Combined with other wound No -Current Size (cm) - Length 0.8 1.1 0.5 -Current Size (cm) - Width 0.5 1.3 0.5 -Current Size (cm) - Depth 0.2 0.2 0.4 -Total Square Cm 0.40 1.43 0.25 -Photo Taken No No -Epithelialization Small 1-33% -Tunneling Yes No -Tunneling Position (O'clock) 5 -Tunneling Distance (cm) 0.2 -Undermining/Tunneling No -Circular Undermining No No -Change in Wound Grade/Stage No -Exudate Amt Medium Small Medium -Exudate Type Serosanguineous Serosanguineous Serosanguineous -Wound Margin Distinct, Distinct, Distinct, Outline Outline Outline Attached Attached Attached -Granulation Amt Small (1-33%) Medium (34-66%) -Granulation Quality N/A [place]rigley Wrigley -Slough/Fibrin Yes Yes -Necrosis Amt Small (1-33%) Medium (34-66%) Small (1-33%) -Necrotic Tissue Type Adherent Slough Adherent Slough Adherent Slough -Structure Exposed Bone -Texture (Love-wound Skin Appearance) No Abnormality, Assessed, Assessed, Assessed Scarring Scarring -Moisture (Love-wound Skin Appearance) No Abnormality, No Abnormality, Assessed,Dry/ Assessed Assessed Scaly -Color (Love-wound Skin Appearance) No Abnormality, No Abnormality, Assessed Assessed Assessed -Temperature (Love-wound Skin No Abnormality No Abnormality No Abnormality Appearance) (Pt Warm) (Pt Warm) (Pt Warm) -Tenderness on Palpation (Love-wound Yes No Yes Skin Appearance) -Ulcer Cleansing Rinsed/ Rinsed/ Soap and Water Irrigated with Irrigated with Saline Saline -Foul Odor after Cleansing No No -Anesthetic Used 4% Lidocaine 5% Lidocaine 5% Lidocaine Solution Gel Gel WC - Nurse 2 - General Ulcer CM Notes Start: 05/21/21 14:00 Freq: Status: Active Protocol: Activity Type Activity Date Activity User E-Sign Co-Sign Detail Recorded Client Recorded Date Recorded By Document 05/21/21 14:27 JF [id number] 05/21/21 14:34 Document 05/28/21 14:53 [id number] 05/28/21 15:02 Document 06/07/21 13:30 MW [id number] 06/07/21 13:39 MW 05/21/21 05/28/21 06/07/21 14:27 14:53 13:30 Wound Center Nurse 2 #9 BKA POST OP -Time 14:28 14:54 13:32 -Correct Patient Yes Yes Yes -Correct Side, Site, Position Yes Yes Yes -Correct Procedure Yes Yes Yes -Procedure Performed Yes Yes Yes -Type of Procedure Debridement Debridement Debridement -Clinical Debridement Subcutaneous Subcutaneous Subcutaneous -Tissue Removed Subcutaneous Subcutaneous Subcutaneous -Post Debridement (cm) - Length 1.1 1 1.0 -Post Debridement (cm) - Width 0.6 1 1.0 -Post Debridement (cm) - Depth 0.2 0.6 0.3 -Total Square (Post) (cm) 0.66 1 1.00 -Area of Debridement (cm) - Length 1.1 1 1.0 -Area of Debridement (cm) - Width 0.6 1 1.0 -Total Square (Area) (cm) 0.66 1 1.00 -Tunneling No No No -Undermining/Tunneling No No No -Circular Undermining No No No -Wound/Ulcer Outcome Not Healed Not Healed Not Healed -Ulcer Cleansing Rinsed/ Not Cleansed Rinsed/ Irrigated with Irrigated with Saline Saline -Foul Odor after Cleansing No No -Bioengineered Tissue Yes Yes Yes -Type of Bioengineered Tissue Epicord Epifix 18mm Epifix 18mm Disc Disc -Expiration Date 02/06/26 01/06/26 02/06/26 -Product Lot Number [id number] -Percent Used 100 100 100 -Lot number of Saline Used [id number] -Bleeding Controlled with NA Pressure Pressure -Offloading Yes Yes No -Type of Offloading Knee Walker Knee Walker -Treatment Response Procedure Procedure Procedure Tolerated Well Tolerated Well Tolerated Well -Debridement - Subq, 1st 20sq cm No No No -Apply Skin Sub - 1st 25 sq cm - Legs 1 1 1 -Epicord (per sq cm) 6 -Epifix 18mm Disc 3 3 Pain Scale: 0-10 Numeric Is Patient Pain Free? Yes Yes Yes WC - Nurse 3 - General Ulcer D/C NN Start: 05/21/21 14:00 Freq: Status: Active Protocol: Activity Type Activity Date Activity User E-Sign Co-Sign Detail Recorded Client Recorded Date Recorded By Document 05/21/21 14:39 [id number] 05/21/21 14:39 Document 05/28/21 15:03 [id number] 05/28/21 15:03 05/21/21 05/28/21 14:39 15:03 Wound Care Nurse 3 #9 BKA POST OP -Ulcer Cleansing Rinsed/ Rinsed/ Irrigated with Irrigated with Saline Saline -Foul Odor after Cleansing No No -Primary Dressing Applied Mepilex Border Mepilex Border -Mepilex Border 1 1 Pain Scale: 0-10 Numeric Is Patient Pain Free? 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: CODE(S): T87.89 - Other complications of amputation stump; L97.919 - Non-pressure chronic ulcer of unspecified part of right lower leg with unspecified severity (3) DM2 (diabetes mellitus, type 2): CODE(S): E11.9 - Type 2 diabetes mellitus without complications QUALIFIERS: Diabetes mellitus complication detail: with other skin complication Diabetes mellitus parts counterman insulin use: with parts counterman use (4) Debility: CODE(S): R53.81 - Other malaise (5) History of osteomyelitis: CODE(S): Z87.39 - Personal history of other diseases of the musculoskeletal system and connective tissue (6) History of methicillin resistant staphylococcus aureus (MRSA): CODE(S): Z86.14 - Personal history of Methicillin resistant Staphylococcus aureus infection (7) Tobacco abuse: CODE(S): Z72.0 - Tobacco use PLAN: Courtesy visit for Lacey SERRANO Wound care - She has been approved for Epifix and Epicord. 4 applications of Epicord. Epifix #2 (6th application advanced wound product) placed today. Epifix was moistened, covered with wound veil that was secured with steri-strips. Covered with Mepilex dry dressing. JOSE D wrap for compression. Instructed patient not to get dressing wet and to change the outer gauze/Mepilex dressing as needed. Finished Vancomycin and Flagyl. Discussed that she needs to stop smoking and get her HgbA1C below 8 before she is able to have a bone graft to the hole in her right BKA bone. She states her blood sugars have been under much better control. She is keeping them in the 120's mostly. She had restarted Chantix and started Nicotine patch but has had a lot of side effects. She is trying very hard to stop smoking. She states she is motivated to get healthier. HgbA1c 8.1 on 04/25/21. Encouraged increased protein intake and Vitamin C intake. She will follow up in 1 week as a courtesy visit with another provider.
== END 2021-06-07 23:59 ==
LOC: WC 13:00
PROVIDERS: Family Provider Internal Medicine; PCP Internal Medicine; Referring Provider Surgery; Visit Provider Nurse Practitioner Family
DX: E11.622 Type 2 diabetes mellitus with other skin ulcer (principal); T87.89 Other complications of amputation stump; Y83.8 Other surgical procedures as the cause of abnormal reaction of the patient, or of later complication, without mention of misadventure at the time of the procedure; L97.812 Non-pressure chronic ulcer of other part of right lower leg with fat layer exposed; E11.42 Type 2 diabetes mellitus with diabetic polyneuropathy; Z86.14 Personal history of Methicillin resistant Staphylococcus aureus infection; L97.814 Non-pressure chronic ulcer of other part of right lower leg with necrosis of bone
CPT/HCPCS: 15271; Q4186; Q4187

== ENCOUNTER 2021-07-02 14:00 | Outpatient (RCR) | payer MEDICARE, MEDICAID, SELFPAY ==
[2021-06-08 00:16] VITALS: BP 142/76; PULSE 106; RESP 16; TEMP 36.3; O2SAT 99; BMI 36.5
[2021-06-18 13:10] VITALS: BP 132/78; PULSE 103; RESP 16; TEMP 36.6; BMI 36.5
--- NOTE | 2021-06-19 15:49 | PCM.WC.PN ---
History of Present Illness Date of Service: 06/18/21 Chief Complaint: Nohealing infected diabetic ulcer anterior aspect right BKA stump. History of Wound: Surgery 01/02/21 - Surgical preparation anterior aspect right BKA stump with incision and drainage and excisional debridement nonhealing painful infected diabetic ulcer (12 cm2) and partial ostectomy tibia for osteomyelitis. Operative tissue cultures positive for Corynebacterium amycolatum, Anaerobic cocci and Fingoldia magna. Operative bone cultures positive for Anaerobic cocci and Fingoldia magna. Pathology of the bone was negative for acute osteomyelitis. She was treated with IV Vanc that was started 01/02/21 and Flagyl. PICC line pulled 01/15/21. Wound care - She has been approved for Epicord and Epifix. She has had 4 applications of Epicord. Epifix #3 (7th application of advanced wound product) placed today. She has a very small bone exposed. Covered with wound veil, secured with steri-strips, covered with Mepilex dressing. JOSE D wrap for compression. Surgery 12/07/19 - 1. Surgical preparation right BKA stump with incision and drainage and excisional debridement infected hematoma (19.25 cm2). 2. Partial ostectomy tibia for osteomyelitis. Wound cultures obtained on 09/11/20 and were positive for Entercoccus faecalis and Anaerobic cocci. She has been taking Augmentin and a probiotic. Operative bone culture and tissue culture from 12/07/19 showed Staphylococcus aureus. She was treated with Doxycycline. Pathology was negative for osteomyelitis. Pathology from 06/26 was positive for osteomyelitis. Her HgA1c from 12/07/19 was 10.5. Prealbumin from 12/07/19 was 14. Another wound culture was obtained on 02/21/20. It showed Enterococcus faecalis. She was started on Augmentin and has finished them. She had another wound culture on 07/11/20. It showed Anaerococcus prevoti and Anaerobic cocci. She was placed on Augmentin and has finished them. An MRI was done on 10/13/20. It showed subtle area of abnormal signal within the distal tibial stump anteriorly with overlying soft tissue thinning and edema. This may represent early osteomyelitis. I do not see a definite abscess. It may be of benefit to repeat the study with intravenous contrast for further evaluation if clinically indicated. She denies fever today and states her appetite is ok. Progress of Wound: Improved. Tunnel has healed tissue present. Still small area of bone exposure. Objective Data Objective Data Vital Signs: Vital Signs Temp Pulse Resp BP Pulse Ox 98 F 103 H 16 132/78 H 99 06/18/21 13:10 06/18/21 13:10 06/18/21 13:10 06/18/21 13:10 06/08/21 00:16 Oxygen Delivery Method Room Air Weight: 203 lb Body Mass Index (BMI) 36.5 Charges/Coding Procedures Integumentary 150xxx-152xx: 37161 Skin sub graft trnk/arm/leg Physical Exam Const alert and oriented x3 General Appearance: cooperative HEENT normocephalic Head and Scalp: atraumatic Resp normal respiratory effort Cardio regular rate GI Palpation: soft Extremity normal capillary refill Skin Wound Narrative: Right BKA ulcer that has a small area of bone exposure. The tunneled area is healed. There continues to be a pin hole but the tissue is healed in the area.She continues to have increased pain with palpation of the bone. Neuro CN's II-XII intact bilaterally Psych Appearance: grossly normal Debridement Note Debridement Note Wound debrided: BKA ulcer Laterality: Right Type of Debridement: Excisional debridement Anesthesia Used: 5% Lidocaine Gel Depth: Down to and including healthy tissue and in the subcutaneous layer Percentage of wound debrided: 100 Instrument Used: 3mm curette Tissue Removed: Subcutaneous tissue and slough Severity: Fat Layer Exposed Amount of bleeding with debridement: Mild Bleeding Controlled with: Pressure Patient tolerated procedure: Patient tolerated procedure well Post-Debridement Measurements and Additional Note: Post-Debridement Measurements/Treatment - Nurse 1 - General Ulcer Assessment Start: 06/18/21 13:10 Freq: Status: Active Protocol: .LOWEXT Activity Type Activity Date Activity User E-Sign Co-Sign Detail Recorded Client Recorded Date Recorded By Document 06/18/21 13:10 [facility] [id number] 06/18/21 13:15 [facility] 06/18/21 13:10 - Today's Visit Information Type of service Follow-up Visit (Physician/HOSPITAL MEDICAL ASSISTANT ) Arrival Mode Ambulatory, Walker Arrival Mode (Other) knee walker Transfer Assistance None Patient Identification Verified (Name & Yes ) Patient Requires Transmission-Based No Precautions Finger Stick Blood Sugar(mg/dl) (if 123 indicated): Blood Sugar Stated by Patient Height and Weight Body Mass Index (BMI) 36.5 BMI Classification Obese Vital Signs Temperature (97.8 F-99.1 F) 98 F Temperature Source Temporal Pulse Rate (60-100) 103 H Pulse Location Monitor Respiratory Rate (12-18) 16 Respiratory rate source Observation Oxygen Delivery Method Room Air Blood Pressure (90/60-120/80) 132/78 H Blood Pressure Mean (mm Hg) 96 Source Monitor Position Sitting Blood Pressure Location Right Arm History Since Last Visit- (Skip if this is Patient's initial visit) Have you changed medications since your No last visit? Any new allergies or adverse reactions No Had a fall/change in ADL's that may No increase risk of falls Signs or symptoms of abuse and/or No neglect since last visit Have you been in the hospital since your No last visit? Has dressing in place as prescribed Yes Has compression in place as prescribed N/A Has offloadiing in place as prescribed N/A Experienced any changes in pain level or No management Left Footwear Regular Shoe Pain Scale: 0-10 Numeric Is Patient Pain Free? Yes WC - Nurse 1 - General Ulcer Measurement Start: 06/18/21 13:10 Freq: Status: Active Protocol: Activity Type Activity Date Activity User E-Sign Co-Sign Detail Recorded Client Recorded Date Recorded By Document 06/18/21 13:10 [facility] [id number] 06/18/21 13:15 [facility] 06/18/21 13:10 Wound Center Nurse 1 #9 BKA POST OP -Combined with other wound No -Current Size (cm) - Length 0.5 -Current Size (cm) - Width 0.3 -Current Size (cm) - Depth 0.1 -Total Square Cm 0.15 -Photo Taken No -Epithelialization Small 1-33% -Tunneling No -Undermining/Tunneling No -Circular Undermining No -Exudate Amt Medium -Exudate Type Serosanguineous -Wound Margin Flat & Intact -Granulation Amt Large (67-100%) -Granulation Quality Pale -Slough/Fibrin Yes -Necrosis Amt Small (1-33%) -Necrotic Tissue Type Adherent Slough -Texture (Love-wound Skin Appearance) Assessed, Scarring -Moisture (Love-wound Skin Appearance) Assessed, Maceration -Color (Love-wound Skin Appearance) Assessed,Palor -Temperature (Love-wound Skin No Abnormality Appearance) (Pt Warm) -Tenderness on Palpation (Love-wound No Skin Appearance) -Ulcer Cleansing Soap and Water -Foul Odor after Cleansing No -Anesthetic Used 4% Lidocaine Solution WC - Nurse 2 - General Ulcer CM Notes Start: 06/18/21 13:10 Freq: Status: Active Protocol: Activity Type Activity Date Activity User E-Sign Co-Sign Detail Recorded Client Recorded Date Recorded By Document 06/18/21 13:25 [facility] [id number] 06/18/21 13:31 [facility] 06/18/21 13:25 Wound Center Nurse 2 -Time 13:29 -Correct Patient Yes -Correct Side, Site, Position Yes -Correct Procedure Yes -Procedure Performed Yes -Type of Procedure Debridement -Clinical Debridement Subcutaneous -Tissue Removed Subcutaneous -Post Debridement (cm) - Length 0.7 -Post Debridement (cm) - Width 0.4 -Post Debridement (cm) - Depth 0.1 -Total Square (Post) (cm) 0.28 -Area of Debridement (cm) - Length 0.7 -Area of Debridement (cm) - Width 0.4 -Total Square (Area) (cm) 0.28 -Tunneling No -Undermining/Tunneling No -Circular Undermining No -Wound/Ulcer Outcome Not Healed -Ulcer Cleansing Rinsed/ Irrigated with Saline -Foul Odor after Cleansing No -Bioengineered Tissue Yes -Type of Bioengineered Tissue Epifix 18mm Disc -Expiration Date 03/08/26 -Product Lot Number [id number] -Percent Used 100 -Lot number of Saline Used [id number] -Bleeding Controlled with Pressure -Offloading Yes -Type of Offloading Knee Walker -Treatment Response Procedure Tolerated Well -Debridement - Subq, 1st 20sq cm No -Apply Skin Sub - 1st 25 sq cm - Legs 1 -Epifix 18mm Disc 3 Pain Scale: 0-10 Numeric Is Patient Pain Free? Yes WC - Nurse 3 - General Ulcer D/C NN Start: 06/18/21 13:10 Freq: Status: Active Protocol: Activity Type Activity Date Activity User E-Sign Co-Sign Detail Recorded Client Recorded Date Recorded By Document 06/18/21 13:32 [facility] [id number] 06/18/21 13:33 SH[facility] 06/18/21 13:32 Wound Care Nurse 3 #9 BKA POST OP -Ulcer Cleansing Rinsed/ Irrigated with Saline -Foul Odor after Cleansing No -Primary Dressing Applied Mepilex Border -Mepilex Border 1 Pain Scale: 0-10 Numeric Is Patient Pain Free? 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: CODE(S): T87.89 - Other complications of amputation stump; L97.919 - Non-pressure chronic ulcer of unspecified part of right lower leg with unspecified severity (2) Diabetic ulcer of lower extremity: CODE(S): E11.622 - Type 2 diabetes mellitus with other skin ulcer; L97.909 - Non-pressure chronic ulcer of unspecified part of unspecified lower leg with unspecified severity (3) History of osteomyelitis: CODE(S): Z87.39 - Personal history of other diseases of the musculoskeletal system and connective tissue (4) 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: CODE(S): T87.89 - Other complications of amputation stump; M79.604 - Pain in right leg (5) DM2 (diabetes mellitus, type 2): CODE(S): E11.9 - Type 2 diabetes mellitus without complications QUALIFIERS: Diabetes mellitus complication detail: with other skin complication Diabetes mellitus penitentiary insulin use: with terminal press operator use (6) PVD (peripheral vascular disease): CODE(S): I73.9 - Peripheral vascular disease, unspecified (7) Hx of right BKA: CODE(S): Z89.511 - Acquired absence of right leg below knee (8) Debility: CODE(S): R53.81 - Other malaise (9) Tobacco abuse: CODE(S): Z72.0 - Tobacco use PLAN: Wound care - She has been approved for Epifix and Epicord. 4 applications of Epicord. Epifix #3 (7th application advanced wound product) placed today. Epifix was moistened, covered with wound veil that was secured with steri-strips. Covered with Mepilex dry dressing. JOSE D wrap for compression. Instructed patient not to get dressing wet and to change the outer gauze/Mepilex dressing as needed. Finished Vancomycin and Flagyl. Discussed that she needs to stop smoking and get her HgbA1C below 8 before she is able to have a bone graft to the hole in her right BKA bone. She states her blood sugars have been under much better control. She is keeping them in the 120's mostly. She had restarted Chantix and started Nicotine patch but has had a lot of side effects. She is trying very hard to stop smoking. She states she is motivated to get healthier. HgbA1c 8.1 on 04/25/21. Encouraged increased protein intake and Vitamin C intake. She will follow up in 1 week.
[2021-06-25 13:51] VITALS: BP 123/79; PULSE 95; RESP 18; TEMP 36.2; BMI 36.5
--- NOTE | 2021-06-25 16:26 | PN.PCM_ITS ---
History of Present Illness Date of Service: 06/25/21 Chief Complaint: Nohealing infected diabetic ulcer anterior aspect right BKA stump. History of Wound: Surgery 01/02/21 - Surgical preparation anterior aspect right BKA stump with incision and drainage and excisional debridement nonhealing painful infected diabetic ulcer (12 cm2) and partial ostectomy tibia for osteomyelitis. Operative tissue cultures positive for Corynebacterium amycolatum, Anaerobic cocci and Fingoldia magna. Operative bone cultures positive for Anaerobic cocci and Fingoldia magna. Pathology of the bone was negative for acute osteomyelitis. She was treated with IV Vanc that was started 01/02/21 and Flagyl. PICC line pulled 01/15/21. Wound care - She has been approved for Epicord and Epifix. She has had 4 applications of Epicord. Epifix #4 (8th application of advanced wound product) placed last week. We will take a break from epifix and use moistened Tresa covered with gauze daily. She has a very small bone exposed. Covered with wound veil, secured with steri-strips, covered with Mepilex dressing. JOSE D wrap for compression. Surgery 12/07/19 - 1. Surgical preparation right BKA stump with incision and drainage and excisional debridement infected hematoma (19.25 cm2). 2. Partial ostectomy tibia for osteomyelitis. Wound cultures obtained on 09/11/20 and were positive for Entercoccus faecalis and Anaerobic cocci. She has been taking Augmentin and a probiotic. Operative bone culture and tissue culture from 12/07/19 showed Staphylococcus aureus. She was treated with Doxycycline. Pathology was negative for osteomyelitis. Pathology from 06/26 was positive for osteomyelitis. Her HgA1c from 12/07/19 was 10.5. Prealbumin from 12/07/19 was 14. Another wound culture was obtained on 02/21/20. It showed Enterococcus faecalis. She was started on Augmentin and has finished them. She had another wound culture on 07/11/20. It showed Anaerococcus prevoti and Anaerobic cocci. She was placed on Augmentin and has finished them. An MRI was done on 10/13/20. It showed subtle area of abnormal signal within the distal tibial stump anteriorly with overlying soft tissue thinning and edema. This may represent early osteomyelitis. I do not see a definite abscess. It may be of benefit to repeat the study with intravenous contrast for further evaluation if clinically indicated. She denies fever today and states her appetite is ok. Progress of Wound: Improved. Tunnel has healed. Still small area of bone exposure. Objective Data Objective Data Vital Signs: Vital Signs Temp Pulse Resp BP Pulse Ox 97.2 F L 95 18 123/79 H 99 06/25/21 13:51 06/25/21 13:51 06/25/21 13:51 06/25/21 13:51 06/08/21 00:16 Oxygen Delivery Method Room Air Weight: 203 lb Body Mass Index (BMI) 36.5 Charges/Coding Procedures Integumentary 111xxx-113xx: 36437 Annalisa subq tissue 20 sq cm/< Physical Exam Const alert and oriented x3 General Appearance: cooperative HEENT normocephalic Resp normal respiratory effort Cardio regular rate GI non-tender Palpation: soft Extremity normal capillary refill Skin Wound Narrative: Right BKA STUMP ULCER IS STABLE THERE IS BONE EXPOSURE Neuro CN's II-XII intact bilaterally Psych Appearance: grossly normal Debridement Note Debridement Note Wound debrided: BKA stump ulcer Laterality: Right Type of Debridement: Excisional debridement Anesthesia Used: 5% Lidocaine Gel Depth: Down to and including healthy tissue and in the subcutaneous layer Percentage of wound debrided: 100 Instrument Used: 3mm curette Tissue Removed: Subcutaneous tissue and slough, small amount of bone exposure Severity: Fat Layer Exposed Bleeding Controlled with: Pressure Patient tolerated procedure: Patient tolerated procedure well Post-Debridement Measurements and Additional Note: Post-Debridement Measurements/Treatment - Nurse 1 - General Ulcer Assessment Start: 06/18/21 13:10 Freq: Status: Active Protocol: KRISTIE Activity Type Activity Date Activity User E-Sign Co-Sign Detail Recorded Client Recorded Date Recorded By Document 06/18/21 13:10 [facility] [id number] 06/18/21 13:15 [facility] Document 06/25/21 13:51 DL [id number] 06/25/21 13:54 DL 06/18/21 06/25/21 13:10 13:51 - Today's Visit Information Type of service Follow-up Visit Follow-up Visit (Physician/UNIX ENGINEER (Physician/UNIX ENGINEER ) ) Arrival Mode Ambulatory, Wheelchair Walker Arrival Mode (Other) knee walker Transfer Assistance None None Patient Identification Verified (Name & Yes Yes ) Patient Requires Transmission-Based No No Precautions Finger Stick Blood Sugar(mg/dl) (if 123 indicated): Blood Sugar Stated by Patient Height and Weight Body Mass Index (BMI) 36.5 36.5 BMI Classification Obese Obese Vital Signs Temperature (97.8 F-99.1 F) 98 F 97.2 F L Temperature Source Temporal Temporal Pulse Rate (60-100) 103 H 95 Pulse Location Monitor Monitor Respiratory Rate (12-18) 16 18 Respiratory rate source Observation Observation Oxygen Delivery Method Room Air Blood Pressure (90/60-120/80) 132/78 H 123/79 H Blood Pressure Mean (mm Hg) 96 93 Source Monitor Monitor Position Sitting Blood Pressure Location Right Arm History Since Last Visit- (Skip if this is Patient's initial visit) Have you changed medications since your No No last visit? Any new allergies or adverse reactions No No Had a fall/change in ADL's that may No No increase risk of falls Signs or symptoms of abuse and/or No No neglect since last visit Have you been in the hospital since your No No last visit? Has dressing in place as prescribed Yes Yes Has compression in place as prescribed N/A Yes Has offloadiing in place as prescribed N/A Yes Experienced any changes in pain level or No No management Left Footwear Regular Shoe Pain Scale: 0-10 Numeric Is Patient Pain Free? Yes Yes WC - Nurse 1 - General Ulcer Measurement Start: 06/18/21 13:10 Freq: Status: Active Protocol: Activity Type Activity Date Activity User E-Sign Co-Sign Detail Recorded Client Recorded Date Recorded By Document 06/18/21 13:10 [facility] [id number] 06/18/21 13:15 [facility] Document 06/25/21 13:51 DL [id number] 06/25/21 13:54 DL 06/18/21 06/25/21 13:10 13:51 Wound Center Nurse 1 #9 BKA POST OP -Combined with other wound No -Current Size (cm) - Length 0.5 1 -Current Size (cm) - Width 0.3 1 -Current Size (cm) - Depth 0.1 0.2 -Total Square Cm 0.15 1 -Photo Taken No No -Epithelialization Small 1-33% -Tunneling No -Undermining/Tunneling No -Circular Undermining No -Exudate Amt Medium Small -Exudate Type Serosanguineous Serosanguineous -Wound Margin Flat & Intact Thickened -Granulation Amt Large (67-100%) Large (67-100%) -Granulation Quality Pale Red -Slough/Fibrin Yes -Necrosis Amt Small (1-33%) Small (1-33%) -Necrotic Tissue Type Adherent Slough Adherent Slough -Structure Exposed Bone -Texture (Love-wound Skin Appearance) Assessed, Scarring Scarring -Moisture (Love-wound Skin Appearance) Assessed, No Abnormality Maceration -Color (Love-wound Skin Appearance) Assessed,Palor No Abnormality -Temperature (Love-wound Skin No Abnormality No Abnormality Appearance) (Pt Warm) (Pt Warm) -Tenderness on Palpation (Love-wound No No Skin Appearance) -Ulcer Cleansing Soap and Water Soap and Water -Foul Odor after Cleansing No No -Anesthetic Used 4% Lidocaine 4% Lidocaine Solution Solution,5% Lidocaine Gel WC - Nurse 2 - General Ulcer CM Notes Start: 06/18/21 13:10 Freq: Status: Active Protocol: Activity Type Activity Date Activity User E-Sign Co-Sign Detail Recorded Client Recorded Date Recorded By Document 06/18/21 13:25 [id number] 06/18/21 13:31 Document 06/25/21 14:27 [id number] [id number] 06/25/21 14:35 06/18/21 06/25/21 13:25 14:27 Wound Center Nurse 2 #9 BKA POST OP -Time 13:29 14:28 -Correct Patient Yes Yes -Correct Side, Site, Position Yes Yes -Correct Procedure Yes Yes -Procedure Performed Yes Yes -Type of Procedure Debridement Debridement -Clinical Debridement Subcutaneous Subcutaneous -Tissue Removed Subcutaneous Subcutaneous -Post Debridement (cm) - Length 0.7 1.2 -Post Debridement (cm) - Width 0.4 0.8 -Post Debridement (cm) - Depth 0.1 0.1 -Total Square (Post) (cm) 0.28 0.96 -Area of Debridement (cm) - Length 0.7 1.2 -Area of Debridement (cm) - Width 0.4 0.8 -Total Square (Area) (cm) 0.28 0.96 -Tunneling No No -Undermining/Tunneling No No -Circular Undermining No No -Wound/Ulcer Outcome Not Healed Not Healed -Ulcer Cleansing Rinsed/ Rinsed/ Irrigated with Irrigated with Saline Saline -Foul Odor after Cleansing No No -Bioengineered Tissue Yes No -Type of Bioengineered Tissue Epifix 18mm Disc -Expiration Date 03/08/26 -Product Lot Number [id number] -Percent Used 100 -Lot number of Saline Used [id number] -Bleeding Controlled with Pressure Pressure -Offloading Yes Yes -Type of Offloading Knee Walker Knee Walker -Treatment Response Procedure Procedure Tolerated Well Tolerated Well -Debridement - Subq, 1st 20sq cm No Yes -Apply Skin Sub - 1st 25 sq cm - Legs 1 -Epifix 18mm Disc 3 Pain Scale: 0-10 Numeric Is Patient Pain Free? Yes Yes - Nurse 3 - General Ulcer D/C NN Start: 06/18/21 13:10 Freq: Status: Active Protocol: Activity Type Activity Date Activity User E-Sign Co-Sign Detail Recorded Client Recorded Date Recorded By Document 06/18/21 13:32 [id number] 06/18/21 13:33 Document 06/25/21 14:44 DL [id number] 06/25/21 14:45 DL 06/18/21 06/25/21 13:32 14:44 Wound Care Nurse 3 #9 BKA POST OP -Ulcer Cleansing Rinsed/ Wound Cleanser Irrigated with Saline -Foul Odor after Cleansing No No -Primary Dressing Applied Mepilex Border Promogran Tresa Matter -Primary Dressing Covered/Secured with Dry Gauze & Roll Gauze, Secured with Tape -Other Covering jose d -Mepilex Border 1 -Promogran Tresa Matter 1 Treatment Response Procedure Tolerated Well Pain Scale: 0-10 Numeric Is Patient Pain Free? 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: CODE(S): T87.89 - Other complications of amputation stump; L97.919 - Non- pressure chronic ulcer of unspecified part of right lower leg with unspecified severity (2) Diabetic ulcer of lower extremity: CODE(S): E11.622 - Type 2 diabetes mellitus with other skin ulcer; L97.909 - Non-pressure chronic ulcer of unspecified part of unspecified lower leg with unspecified severity (3) Osteomyelitis: CODE(S): M86.9 - Osteomyelitis, unspecified (4) 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: CODE(S): T87.89 - Other complications of amputation stump; M79.604 - Pain in right leg (5) DM2 (diabetes mellitus, type 2): CODE(S): E11.9 - Type 2 diabetes mellitus without complications QUALIFIERS: Diabetes mellitus complication detail: with other skin complication Diabetes mellitus fci insulin use: with termite treater helper use (6) Tobacco abuse: CODE(S): Z72.0 - Tobacco use (7) Impaired physical mobility: CODE(S): Z74.09 - Other reduced mobility (8) Debility: CODE(S): R53.81 - Other malaise (9) Acute post-operative pain: CODE(S): G89.18 - Other acute postprocedural pain PLAN: Wound care - She has been approved for Epifix and Epicord. 4 applications of Epicord. Epifix #4 (8th application advanced wound product) placed last week. We will take a break this week and apply moistened Tresa daily covere with gauze or mepilex. May wash ulcer daily with soap and ulcer. JOSE D wrap for compression. Instructed patient not to get dressing wet and to change the outer gauze/Mepilex dressing as needed. Finished Vancomycin and Flagyl. Discussed that she needs to stop smoking and get her HgbA1C below 8 before she is able to have a bone graft to the hole in her right BKA bone. She states her blood sugars have been under much better control. She is keeping them in the 120's mostly. She had restarted Chantix and started Nicotine patch but has had a lot of side effects. She is trying very hard to stop smoking. She states she is motivated to get healthier. HgbA1c 8.1 on 04/25/21. Encouraged increased protein intake and Vitamin C intake. She will follow up in 1 week.
[2021-07-02 14:10] VITALS: BP 125/67; PULSE 95; RESP 18; TEMP 36.3; BMI 36.5
--- NOTE | 2021-07-02 14:54 | PN.PCM_ITS ---
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 History of Wound: Surgery 01/02/21 - Surgical preparation anterior aspect right BKA stump with incision and drainage and excisional debridement nonhealing painful infected diabetic ulcer (12 cm2) and partial ostectomy tibia for osteomyelitis. Operative tissue cultures positive for Corynebacterium amycolatum, Anaerobic cocci and Fingoldia magna. Operative bone cultures positive for Anaerobic cocci and Fingoldia magna. Pathology of the bone was negative for acute osteomyelitis. She was treated with IV Vanc that was started 01/02/21 and Flagyl. PICC line pulled 01/15/21. Wound care - She has been approved for Epicord and Epifix. She has had 4 applications of Epicord. Epifix #4 (8 applications of advanced wound product). We will take a break from epifix and use moistened Tresa covered with gauze daily. She has a very small bone exposed. Covered with wound veil, secured with steri-strips, covered with Mepilex dressing. JOSE D wrap for compression. Surgery 12/07/19 - 1. Surgical preparation right BKA stump with incision and drainage and excisional debridement infected hematoma (19.25 cm2). 2. Partial ostectomy tibia for osteomyelitis. Wound cultures obtained on 09/11/20 and were positive for Entercoccus faecalis and Anaerobic cocci. She has been taking Augmentin and a probiotic. Operative bone culture and tissue culture from 12/07/19 showed Staphylococcus aureus. She was treated with Doxycycline. Pathology was negative for osteomyelitis. Pathology from 06/26 was positive for osteomyelitis. Her HgA1c from 12/07/19 was 10.5. Prealbumin from 12/07/19 was 14. Another wound culture was obtained on 02/21/20. It showed Enterococcus faecalis. She was started on Augmentin and has finished them. She had another wound culture on 07/11/20. It showed Anaerococcus prevoti and Anaerobic cocci. She was placed on Augmentin and has finished them. An MRI was done on 10/13/20. It showed subtle area of abnormal signal within the distal tibial stump anteriorly with overlying soft tissue thinning and edema. This may represent early osteomyelitis. I do not see a definite abscess. It may be of benefit to repeat the study with intravenous contrast for further evaluation if clinically indicated. She denies fever today and states her appetite is ok. Progress of Wound: Stable. Still small area of bone exposure. Objective Data Objective Data Vital Signs: Vital Signs Temp Pulse Resp BP Pulse Ox 97.4 F L 95 18 125/67 H 99 07/02/21 14:10 07/02/21 14:10 07/02/21 14:10 07/02/21 14:10 06/08/21 00:16 Oxygen Delivery Method Room Air Weight: 203 lb Body Mass Index (BMI) 36.5 Charges/Coding Procedures Integumentary [id number]: [id number] Annalisa subq tissue 20 sq cm/< Physical Exam Const alert and oriented x3 General Appearance: cooperative HEENT normocephalic Head and Scalp: atraumatic Resp normal respiratory effort Cardio regular rate GI Palpation: soft Extremity normal capillary refill Skin Wound Narrative: Right BKA stump ulcer with bone exposure Neuro CN's II-XII intact bilaterally Psych Appearance: grossly normal Debridement Note Debridement Note Wound debrided: BKA stump ucler Laterality: Right Type of Debridement: Excisional debridement Anesthesia Used: 5% Lidocaine Gel Depth: Down to and including healthy tissue and in the subcutaneous layer Percentage of wound debrided: 100 Instrument Used: 3mm curette Tissue Removed: Subcutaneous tissue and slough Severity: Fat Layer Exposed Amount of bleeding with debridement: Mild Bleeding Controlled with: Pressure Patient tolerated procedure: Patient tolerated procedure well Post-Debridement Measurements and Additional Note: Post-Debridement Measurements/Treatment WC - Nurse 1 - General Ulcer Assessment Start: 06/18/21 13:10 Freq: Status: Active Protocol: KRISTIE Activity Type Activity Date Activity User E-Sign Co-Sign Detail Recorded Client Recorded Date Recorded By Document 06/18/21 13:[address] [facility] [id number] 06/18/21 13:15 BMF Document 06/25/21 13:51 DL [id number] 06/25/21 13:54 DL Document 07/02/21 14:10 DL [id number] 07/02/21 14:12 DL 06/18/21 06/25/21 07/02/21 13:10 13:51 14:10 - Today's Visit Information Type of service Follow-up Visit Follow-up Visit Follow-up Visit (Physician/PRESS OFFBEARER (Physician/PRESS OFFBEARER (Physician/PRESS OFFBEARER ) ) ) Arrival Mode Ambulatory, Wheelchair Walker Walker Arrival Mode (Other) knee walker Transfer Assistance None None None Patient Identification Verified (Name & Yes Yes Yes ) Patient Requires Transmission-Based No No No Precautions Finger Stick Blood Sugar(mg/dl) (if 123 132 indicated): Blood Sugar Stated by Stated by Patient Patient Height and Weight Body Mass Index (BMI) 36.5 36.5 36.5 BMI Classification Obese Obese Obese Vital Signs Temperature (97.8 F-99.1 F) 98 F 97.2 F L 97.4 F L Temperature Source Temporal Temporal Temporal Pulse Rate (60-100) 103 H 95 95 Pulse Location Monitor Monitor Monitor Respiratory Rate (12-18) 16 18 18 Respiratory rate source Observation Observation Observation Oxygen Delivery Method Room Air Blood Pressure (90/60-120/80) 132/78 H 123/79 H 125/67 H Blood Pressure Mean (mm Hg) 96 93 86 Source Monitor Monitor Monitor Position Sitting Blood Pressure Location Right Arm History Since Last Visit- (Skip if this is Patient's initial visit) Have you changed medications since your No No No last visit? Any new allergies or adverse reactions No No No Had a fall/change in ADL's that may No No No increase risk of falls Signs or symptoms of abuse and/or No No No neglect since last visit Have you been in the hospital since your No No No last visit? Has dressing in place as prescribed Yes Yes Yes Has compression in place as prescribed N/A Yes Yes Has offloadiing in place as prescribed N/A Yes Yes Experienced any changes in pain level or No No No management Left Footwear Regular Shoe Pain Scale: 0-10 Numeric Is Patient Pain Free? Yes Yes Yes WC - Nurse 1 - General Ulcer Measurement Start: 06/18/21 13:10 Freq: Status: Active Protocol: Activity Type Activity Date Activity User E-Sign Co-Sign Detail Recorded Client Recorded Date Recorded By Document 06/18/21 13:10 BMF [id number] 06/18/21 13:15 BMF Document 06/25/21 13:51 DL [id number] 06/25/21 13:54 DL Document 07/02/21 14:10 DL [id number] 07/02/21 14:12 DL 06/18/21 06/25/21 07/02/21 13:10 13:51 14:10 Wound Center Nurse 1 #9 BKA POST OP -Combined with other wound No -Current Size (cm) - Length 0.5 1 0.1 -Current Size (cm) - Width 0.3 1 0.1 -Current Size (cm) - Depth 0.1 0.2 0.1 -Total Square Cm 0.15 1 0.01 -Photo Taken No No No -Epithelialization Small 1-33% -Tunneling No -Undermining/Tunneling No -Circular Undermining No -Exudate Amt Medium Small Small -Exudate Type Serosanguineous Serosanguineous Serosanguineous -Wound Margin Flat & Intact Thickened Distinct, Outline Attached -Granulation Amt Large (67-100%) Large (67-100%) -Granulation Quality Pale Red Hyper- granulation,Red -Slough/Fibrin Yes -Necrosis Amt Small (1-33%) Small (1-33%) Small (1-33%) -Necrotic Tissue Type Adherent Slough Adherent Slough Adherent Slough -Structure Exposed Bone N/A -Texture (Love-wound Skin Appearance) Assessed, Scarring Scarring Scarring -Moisture (Love-wound Skin Appearance) Assessed, No Abnormality No Abnormality Maceration -Color (Love-wound Skin Appearance) Assessed,Palor No Abnormality No Abnormality -Temperature (Love-wound Skin No Abnormality No Abnormality No Abnormality Appearance) (Pt Warm) (Pt Warm) (Pt Warm) -Tenderness on Palpation (Love-wound No No No Skin Appearance) -Ulcer Cleansing Soap and Water Soap and Water Wound Cleanser -Foul Odor after Cleansing No No No -Anesthetic Used 4% Lidocaine 4% Lidocaine 5% Lidocaine Solution Solution,5% Gel Lidocaine Gel WC - Nurse 2 - General Ulcer CM Notes Start: 06/18/21 13:10 Freq: Status: Active Protocol: Activity Type Activity Date Activity User E-Sign Co-Sign Detail Recorded Client Recorded Date Recorded By Document 06/18/21 13:25 [id number] 06/18/21 13:31 Document 06/25/21 14:27 [id number] 06/25/21 14:35 Document 07/02/21 14:19 [id number] 07/02/21 14:23 06/18/21 06/25/21 07/02/21 13:25 14:27 14:19 Wound Center Nurse 2 #9 BKA POST OP -Time 13:29 14:28 14:22 -Correct Patient Yes Yes Yes -Correct Side, Site, Position Yes Yes Yes -Correct Procedure Yes Yes Yes -Procedure Performed Yes Yes Yes -Type of Procedure Debridement Debridement Debridement -Clinical Debridement Subcutaneous Subcutaneous Subcutaneous -Tissue Removed Subcutaneous Subcutaneous Subcutaneous -Post Debridement (cm) - Length 0.7 1.2 0.7 -Post Debridement (cm) - Width 0.4 0.8 0.3 -Post Debridement (cm) - Depth 0.1 0.1 0.1 -Total Square (Post) (cm) 0.28 0.96 0.21 -Area of Debridement (cm) - Length 0.7 1.2 0.7 -Area of Debridement (cm) - Width 0.4 0.8 0.3 -Total Square (Area) (cm) 0.28 0.96 0.21 -Tunneling No No No -Undermining/Tunneling No No No -Circular Undermining No No No -Wound/Ulcer Outcome Not Healed Not Healed Not Healed -Ulcer Cleansing Rinsed/ Rinsed/ Rinsed/ Irrigated with Irrigated with Irrigated with Saline Saline Saline -Foul Odor after Cleansing No No No -Bioengineered Tissue Yes No No -Type of Bioengineered Tissue Epifix 18mm Disc -Expiration Date 03/08/26 -Product Lot Number [id number] -Percent Used 100 -Lot number of Saline Used [id number] -Bleeding Controlled with Pressure Pressure Pressure -Offloading Yes Yes Yes -Type of Offloading Knee Walker Knee Walker Knee Walker -Treatment Response Procedure Procedure Procedure Tolerated Well Tolerated Well Tolerated Well -Debridement - Subq, 1st 20sq cm No Yes Yes -Apply Skin Sub - 1st 25 sq cm - Legs 1 -Epifix 18mm Disc 3 Pain Scale: 0-10 Numeric Is Patient Pain Free? Yes Yes Yes WC - Nurse 3 - General Ulcer D/C NN Start: 06/18/21 13:10 Freq: Status: Active Protocol: Activity Type Activity Date Activity User E-Sign Co-Sign Detail Recorded Client Recorded Date Recorded By Document 06/18/21 13:32 [email or web address] [id number] 06/18/21 13:33 JF Document 06/25/21 14:44 DL [id number] 06/25/21 14:45 DL Document 07/02/21 14:31 DL [id number] 07/02/21 14:32 DL 06/18/21 06/25/21 07/02/21 13:32 14:44 14:31 Wound Care Nurse 3 #9 BKA POST OP -Ulcer Cleansing Rinsed/ Wound Cleanser Wound Cleanser Irrigated with Saline -Foul Odor after Cleansing No No No -Primary Dressing Applied Mepilex Border Promogran Mepilex Border, Tresa Matter NonAdherent Contact Layer, Promogran Tresa Matter -Primary Dressing Covered/Secured with Dry Gauze & Dry Gauze & Roll Gauze, Roll Gauze, Secured with Secured with Tape Tape -Other Covering jose d jose d -Mepilex Border 1 1 -Promogran Tresa Matter 1 1 Treatment Response Procedure Procedure Tolerated Well Tolerated Well Pain Scale: 0-10 Numeric Is Patient Pain Free? 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: CODE(S): T87.89 - Other complications of amputation stump; L97.919 - Non- pressure chronic ulcer of unspecified part of right lower leg with unspecified severity (2) Diabetic ulcer of lower extremity: CODE(S): E11.622 - Type 2 diabetes mellitus with other skin ulcer; L97.909 - Non-pressure chronic ulcer of unspecified part of unspecified lower leg with unspecified severity (3) Osteomyelitis: CODE(S): M86.9 - Osteomyelitis, unspecified (4) 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: CODE(S): T87.89 - Other complications of amputation stump; M79.604 - Pain in right leg (5) DM2 (diabetes mellitus, type 2): CODE(S): E11.9 - Type 2 diabetes mellitus without complications QUALIFIERS: Diabetes mellitus complication detail: with other skin complication Diabetes mellitus long term care social worker insulin use: with long term care social worker use (6) Tobacco abuse: CODE(S): Z72.0 - Tobacco use PLAN: Wound care - She has been approved for Epifix and Epicord. 4 applications of Epicord. Epifix #4 (8 applications total of advanced wound product). Moistened Tresa daily covered with adaptic and topped with mepilex every other day. May wash ulcer daily with soap and ulcer at the time of dressing change. JOSE D wrap for compression. Instructed patient not to get dressing wet and to change the outer gauze/Mepilex dressing as needed. Finished Vancomycin and Flagyl. Discussed that she needs to stop smoking and get her HgbA1C below 8 before she is able to have a bone graft to the hole in her right BKA bone. She states her blood sugars have been under much better control. She is keeping them in the 130's mostly. She had restarted Chantix and started Nicotine patch but has had a lot of side effects. She is trying very hard to stop smoking. She states she is motivated to get healthier. HgbA1c 8.1 on 04/25/21. Encouraged increased protein intake and Vitamin C intake. She will follow up in 2 weeks.
== END 2021-07-08 23:59 ==
LOC: WC 14:00
PROVIDERS: Family Provider Internal Medicine; PCP Internal Medicine; Referring Provider Surgery; Visit Provider Nurse Practitioner Family
DX: E11.622 Type 2 diabetes mellitus with other skin ulcer (principal); Z89.511 Acquired absence of right leg below knee; L97.812 Non-pressure chronic ulcer of other part of right lower leg with fat layer exposed; E11.51 Type 2 diabetes mellitus with diabetic peripheral angiopathy without gangrene; Y83.8 Other surgical procedures as the cause of abnormal reaction of the patient, or of later complication, without mention of misadventure at the time of the procedure; T87.89 Other complications of amputation stump
CPT/HCPCS: 11042; 15271; Q4186

== ENCOUNTER 2021-07-30 13:00 | Outpatient (RCR) | payer MEDICARE, MEDICAID, SELFPAY ==
[2021-07-09 00:12] VITALS: BP 125/67; PULSE 95; RESP 18; TEMP 36.3; O2SAT 99; BMI 36.5
[2021-07-16 11:09] VITALS: BP 124/66; PULSE 100; TEMP 36; BMI 36.5
--- NOTE | 2021-07-16 12:58 | PCM.WC.PN ---
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 History of Wound: Surgery 01/02/21 - Surgical preparation anterior aspect right BKA stump with incision and drainage and excisional debridement nonhealing painful infected diabetic ulcer (12 cm2) and partial ostectomy tibia for osteomyelitis. Operative tissue cultures positive for Corynebacterium amycolatum, Anaerobic cocci and Fingoldia magna. Operative bone cultures positive for Anaerobic cocci and Fingoldia magna. Pathology of the bone was negative for acute osteomyelitis. She was treated with IV Vanc that was started 01/02/21 and Flagyl. PICC line pulled 01/15/21. Wound care - She has been approved for Epicord and Epifix. She has had 4 applications of Epicord. Epifix #4 (8 applications of advanced wound product). We will take a break from epifix and use moistened Tresa covered with gauze daily. She has a very small bone exposed. Covered with wound veil, secured with steri-strips, covered with Mepilex dressing. JOSE D wrap for compression. Surgery 12/07/19 - 1. Surgical preparation right BKA stump with incision and drainage and excisional debridement infected hematoma (19.25 cm2). 2. Partial ostectomy tibia for osteomyelitis. Wound cultures obtained on 09/11/20 and were positive for Entercoccus faecalis and Anaerobic cocci. She has been taking Augmentin and a probiotic. Operative bone culture and tissue culture from 12/07/19 showed Staphylococcus aureus. She was treated with Doxycycline. Pathology was negative for osteomyelitis. Pathology from 06/26 was positive for osteomyelitis. Her HgA1c from 12/07/19 was 10.5. Prealbumin from 12/07/19 was 14. Another wound culture was obtained on 02/21/20. It showed Enterococcus faecalis. She was started on Augmentin and has finished them. She had another wound culture on 07/11/20. It showed Anaerococcus prevoti and Anaerobic cocci. She was placed on Augmentin and has finished them. An MRI was done on 10/13/20. It showed subtle area of abnormal signal within the distal tibial stump anteriorly with overlying soft tissue thinning and edema. This may represent early osteomyelitis. I do not see a definite abscess. It may be of benefit to repeat the study with intravenous contrast for further evaluation if clinically indicated. She denies fever today and states her appetite is ok. Progress of Wound: minimal improvement with exposed bone. Objective Data Objective Data Vital Signs: Vital Signs Temp Pulse Resp BP Pulse Ox 96.8 F L 100 18 124/66 H 99 07/16/21 11:09 07/16/21 11:09 07/09/21 00:12 07/16/21 11:09 07/09/21 00:12 Weight: 203 lb Body Mass Index (BMI) 36.5 Lab / Micro Data Attestation: I reviewed the patient's lab results. Charges/Coding Procedures Integumentary [id number]: [id number] Annalisa subq tissue 20 sq cm/< (ICD-10 - T87.89, M86.9, Z86.14, E11.9, R73.09, I73.9, Z87.39, Z89.511, F17.200) Debridement Note Debridement Note Wound debrided: #9 anterior aspect right BKA stump. Laterality: Right Wound Grade/Stage: 4. Type of Debridement: Excisional debridement Anesthesia Used: 4% Lidocaine Solution Depth: Down to and including healthy tissue, in the subcutaneous layer and to bone (small area of bone exposed but not debrided.) Percentage of wound debrided: 100 Instrument Used: 3mm curette Tissue Removed: subcutaneous tissue. Severity: Fat Layer Exposed (small area of bone exposed but not debrided..) Amount of bleeding with debridement: Mild Bleeding Controlled with: Compression and gauze Patient tolerated procedure: Patient tolerated procedure well Post-Debridement Measurements and Additional Note: Post-Debridement Measurements/Treatment - Nurse 1 - General Ulcer Assessment Start: 07/16/21 11:08 Freq: Status: Active Protocol: SOL.LOWEXT Activity Type Activity Date Activity User E-Sign Co-Sign Detail Recorded Client Recorded Date Recorded By Document 07/16/21 11:09 BURAK [id number] 07/16/21 11:11 BURAK 07/16/21 11:09 - Today's Visit Information Type of service Follow-up Visit (Physician/MANAGER CARD ) Patient Identification Verified (Name & No ) Patient Requires Transmission-Based No Precautions Safety Precautions NA Height and Weight Body Mass Index (BMI) 36.5 BMI Classification Obese Vital Signs Temperature (97.8 F-99.1 F) 96.8 F L Temperature Source Temporal Pulse Rate (60-100) 100 Pulse Location Monitor Blood Pressure (90/60-120/80) 124/66 H Blood Pressure Mean (mm Hg) 85 Source Monitor History Since Last Visit- (Skip if this is Patient's initial visit) Have you changed medications since your No last visit? Any new allergies or adverse reactions No Had a fall/change in ADL's that may No increase risk of falls Signs or symptoms of abuse and/or No neglect since last visit Have you been in the hospital since your No last visit? Has dressing in place as prescribed Yes Has compression in place as prescribed Yes Has offloadiing in place as prescribed N/A Experienced any changes in pain level or No management WC - Nurse 1 - General Ulcer Measurement Start: 07/16/21 11:08 Freq: Status: Active Protocol: Activity Type Activity Date Activity User E-Sign Co-Sign Detail Recorded Client Recorded Date Recorded By Document 07/16/21 11:09 BURAK [id number] 07/16/21 11:11 BURAK 07/16/21 11:09 Wound Center Nurse 1 #9 BKA POST OP -Combined with other wound No -Current Size (cm) - Length 0.7 -Current Size (cm) - Width 0.5 -Current Size (cm) - Depth 0.1 -Total Square Cm 0.35 -Photo Taken No -Epithelialization Small 1-33% -Tunneling No -Undermining/Tunneling No -Circular Undermining No -Exudate Amt Small -Exudate Type Serosanguineous -Wound Margin Distinct, Outline Attached -Granulation Amt Small (1-33%) -Slough/Fibrin Yes -Necrosis Amt Small (1-33%) -Necrotic Tissue Type Adherent Slough -Structure Exposed N/A -Texture (Love-wound Skin Appearance) Assessed, Scarring -Moisture (Love-wound Skin Appearance) No Abnormality, Assessed -Color (Love-wound Skin Appearance) No Abnormality, Assessed -Temperature (Love-wound Skin No Abnormality Appearance) (Pt Warm) -Tenderness on Palpation (Love-wound No Skin Appearance) -Ulcer Cleansing Rinsed/ Irrigated with Saline -Foul Odor after Cleansing No -Anesthetic Used 5% Lidocaine Gel WC - Nurse 2 - General Ulcer CM Notes Start: 07/16/21 11:08 Freq: Status: Active Protocol: Activity Type Activity Date Activity User E-Sign Co-Sign Detail Recorded Client Recorded Date Recorded By Document 07/16/21 11:53 SHAYNA [id number] 07/16/21 11:54 SHAYNA 07/16/21 11:53 Wound Center Nurse 2 -Time 11:53 -Correct Patient Yes -Correct Side, Site, Position Yes -Correct Procedure Yes -Procedure Performed Yes -Type of Procedure Debridement -Clinical Debridement Subcutaneous -Tissue Removed Subcutaneous -Post Debridement (cm) - Length 0.9 -Post Debridement (cm) - Width 0.3 -Post Debridement (cm) - Depth 0.2 -Total Square (Post) (cm) 0.27 -Area of Debridement (cm) - Length 0.9 -Area of Debridement (cm) - Width 0.3 -Total Square (Area) (cm) 0.27 -Tunneling No -Undermining/Tunneling No -Circular Undermining No -Wound/Ulcer Outcome Not Healed -Ulcer Cleansing Rinsed/ Irrigated with Saline -Foul Odor after Cleansing No -Bioengineered Tissue No -Bleeding Controlled with Pressure -Offloading No -Treatment Response Procedure Tolerated Well -Debridement - Subq, 1st 20sq cm Yes Pain Scale: 0-10 Numeric Is Patient Pain Free? Yes - Nurse 3 - General Ulcer D/C NN Start: 07/16/21 11:08 Freq: Status: Active Protocol: Activity Type Activity Date Activity User E-Sign Co-Sign Detail Recorded Client Recorded Date Recorded By Document 07/16/21 12:04 DL [id number] 07/16/21 12:06 DL 07/16/21 12:04 Wound Care Nurse 3 #9 BKA POST OP -Ulcer Cleansing Rinsed/ Irrigated with Saline -Foul Odor after Cleansing No -Primary Dressing Applied Mepilex Border, NonAdherent Contact Layer, Promogran Tresa Matter -Mepilex Border 1 -Promogran Tresa Matter 1 Treatment Response Procedure Tolerated Well Pain Scale: 0-10 Numeric Is Patient Pain Free? 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: CODE(S): T87.89 - Other complications of amputation stump; L97.919 - Non-pressure chronic ulcer of unspecified part of right lower leg with unspecified severity (2) Osteomyelitis: CODE(S): M86.9 - Osteomyelitis, unspecified (3) History of methicillin resistant staphylococcus aureus (MRSA): CODE(S): Z86.14 - Personal history of Methicillin resistant Staphylococcus aureus infection (4) 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: CODE(S): T87.89 - Other complications of amputation stump; M79.604 - Pain in right leg (5) DM2 (diabetes mellitus, type 2): CODE(S): E11.9 - Type 2 diabetes mellitus without complications QUALIFIERS: Diabetes mellitus complication detail: with other skin complication Diabetes mellitus 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 4 applications of Epicord. Epifix #4 (8 applications total of advanced wound product). Moistened Tresa daily covered with adaptic and topped with mepilex every other day. May wash ulcer daily with soap and ulcer at the time of dressing change. JOSE D wrap for compression. Instructed patient not to get dressing wet and to change the outer gauze/Mepilex dressing as needed. Finished Vancomycin and Flagyl. Discussed that she needs to stop smoking and get her HgbA1C below 8 before she is able to have a bone graft to the hole in her right BKA bone. Her latest HgbA1c was 8.1 on 04/25/21. She had restarted Chantix and started Nicotine patch but has had a lot of side effects. She is trying very hard to stop smoking. She states she is motivated to get healthier. Encouraged increased protein intake and Vitamin C intake to help the healing process. The ulcer has plateaued. The ulcer has not been cultured since December,. Recommend operative intervention with surgical preparation right BKA stump with incision and drainage and excisional debridement infected diabetic ulcer and also a partial ostectomy tibia for osteomyelitis. The ulcer will be cultured at the time of surgery, both soft tissue and bone. With regard to a bone graft in the future, with her diabetes still needing better control and she is still smoking, a bone graft would probably develop a nonunion. A solid bony healing process would give us a fighting chance. Then you have to deal with the pressure from the prosthesis. The safest thing to do is to debride the bone and see how strong it is to handle the pressure from the prosthesis. By debriding the bone back to solid bone may shorten to stump too much. The prosthesis would not be stable in too short of a stump. If that is the case, then a revision AKA would be needed. In addition we don't have a strong enough soft tissue coverage over the bone which increases the risk of problems in the prosthesis. Patient states she hasn't used her prosthesis in a long time, and this inactivity weakens the bone as well. Will need an MRI of her stump before surgery. Will obtain soft tissue and bone cultures at the time of surgery. Surgery would be done under general anesthesia with a surgical observation overnight stay in the hospital. Initially the wound would be left open because her HgbA1c is too high. So it won't be a definitive revision of the BKA stump because of the HgbA1c being too high at this time. When it comes time for revision of the stump with secondary closure, we would determine if the revised BKA stump would be worthy of the prosthesis or if it would be too short. At which time a revision AKA would need to be done. Patient voices understanding. We discussed the current risks associated with COVID-19. While it is understood that there is a community spread of COVID-19, the risk of radha COVID-19 while at [facility] ([facility]) is very low; however, the risk cannot be completely mitigated because of the community spread of the disease. We discussed in detail the risk of exposure to and/or potential harm posed by the COVID-19 virus with having a surgery/procedure at this time versus the risk of delaying the surgery/procedure. It is not possible to know either the risk of delaying the surgery or procedure or chance of getting an infection with perfect accuracy, but a joint decision was made to proceed at this time with the scheduled surgery/procedure as indicated on the consent form. Patient was notified that we will need to comply with any screening or testing [facility] wishes to perform or that surgery may be delayed for any positive results. She will follow up in 2 weeks.
[2021-07-30 13:06] VITALS: BP 141/84; PULSE 113; TEMP 36.8; BMI 36.5
--- NOTE | 2021-07-30 14:21 | PN.PCM_ITS ---
History of Present Illness Date of Service: 07/30/21 Chief Complaint: Nohealing infected diabetic ulcer anterior aspect right BKA stump. History of Wound: Surgery 01/02/21 - Surgical preparation anterior aspect right BKA stump with incision and drainage and excisional debridement nonhealing painful infected diabetic ulcer (12 cm2) and partial ostectomy tibia for osteomyelitis. Operative tissue cultures positive for Corynebacterium amycolatum, Anaerobic cocci and Fingoldia magna. Operative bone cultures positive for Anaerobic cocci and Fingoldia magna. Pathology of the bone was negative for acute osteomyelitis. She was treated with IV Vanc that was started 01/02/21 and Flagyl. PICC line pulled 01/15/21. Wound care - She has been approved for Epicord and Epifix. She has had 4 applications of Epicord and 4 applications of Epifix (8 applications of advanced wound product). Moistened Tresa covered adaptic covered with gauze daily. She has a very small bone exposed. JAVIER wrap for compression. Surgery 12/07/19 - 1. Surgical preparation right BKA stump with incision and drainage and excisional debridement infected hematoma (19.25 cm2). 2. Partial ostectomy tibia for osteomyelitis. Wound cultures obtained on 09/11/20 and were positive for Entercoccus faecalis and Anaerobic cocci. She has been taking Augmentin and a probiotic. Operative bone culture and tissue culture from 12/07/19 showed Staphylococcus aureus. She was treated with Doxycycline. Pathology was negative for osteomyelitis. Pathology from 06/26 was positive for osteomyelitis. Her HgA1c from 12/07/19 was 10.5. Prealbumin from 12/07/19 was 14. Another wound culture was obtained on 02/21/20. It showed Enterococcus faecalis. She was started on Augmentin and has finished them. She had another wound culture on 07/11/20. It showed Anaerococcus prevoti and Anaerobic cocci. She was placed on Augmentin and has finished them. An MRI was done on 10/13/20. It showed subtle area of abnormal signal within the distal tibial stump anteriorly with overlying soft tissue thinning and edema. This may represent early osteomyelitis. I do not see a definite abscess. It may be of benefit to repeat the study with intravenous contrast for further evaluation if clinically indicated. She denies fever today and states her appetite is ok. Progress of Wound: Stable. Continues to have a small piece of bone exposed that is extremely painful to palpation. Objective Data Objective Data Vital Signs: Vital Signs Temp Pulse Resp BP Pulse Ox 98.2 F 113 H 18 141/84 H 99 07/30/21 13:06 07/30/21 13:06 07/09/21 00:12 07/30/21 13:06 07/09/21 00:12 Weight: 203 lb Body Mass Index (BMI) 36.5 Charges/Coding Procedures Integumentary 111xxx-113xx: 67076 Annalisa subq tissue 20 sq cm/< Physical Exam Const alert and oriented x3 General Appearance: cooperative HEENT normocephalic Lymph Lymphatic: no lymphedema noted Resp normal respiratory effort Cardio regular rate GI non-tender Palpation: soft Extremity normal capillary refill Skin Skin Narrative: Right BKA ULCER WITH SMALL AMOUNT OF BONE EXPOSURE IT IS VERY SENSITIVE TO PALPATION Neuro CN's II-XII intact bilaterally Psych Appearance: grossly normal Debridement Note Debridement Note Wound debrided: BKA ulcer Laterality: Right Type of Debridement: Excisional debridement Anesthesia Used: 5% Lidocaine Gel Depth: Down to and including healthy tissue and in the subcutaneous layer Percentage of wound debrided: 100 Instrument Used: 3mm curette Tissue Removed: Subcutaneous tissue and slough with bone exposure Severity: Limited To Skin Breakdown Amount of bleeding with debridement: Mild Bleeding Controlled with: Pressure Patient tolerated procedure: Patient tolerated procedure well Post-Debridement Measurements and Additional Note: Post-Debridement Measurements/Treatment WC - Nurse 1 - General Ulcer Assessment Start: 07/16/21 11:08 Freq: Status: Active Protocol: KRISTIE Activity Type Activity Date Activity User E-Sign Co-Sign Detail Recorded Client Recorded Date Recorded By Document 07/16/21 11:09 GA [id number] 07/16/21 11:11 AK Document 07/30/21 13:06 [facility] [id number] 07/30/21 13:09 [facility] 07/16/21 07/30/21 11:09 13:06 - Today's Visit Information Type of service Follow-up Visit Initial Visit (Physician/LUSTERER ) Arrival Mode Walker Patient Identification Verified (Name & No Yes ) Patient Requires Transmission-Based No Precautions Safety Precautions NA Height and Weight Body Mass Index (BMI) 36.5 36.5 BMI Classification Obese Obese Vital Signs Temperature (97.8 F-99.1 F) 96.8 F L 98.2 F Temperature Source Temporal Temporal Pulse Rate (60-100) 100 113 H Pulse Location Monitor Monitor Blood Pressure (90/60-120/80) 124/66 H 141/84 H Blood Pressure Mean (mm Hg) 85 103 Source Monitor Monitor Position Sitting Blood Pressure Location Left Arm History Since Last Visit- (Skip if this is Patient's initial visit) Have you changed medications since your No No last visit? Any new allergies or adverse reactions No No Had a fall/change in ADL's that may No No increase risk of falls Signs or symptoms of abuse and/or No No neglect since last visit Have you been in the hospital since your No No last visit? Has dressing in place as prescribed Yes Yes Has compression in place as prescribed Yes N/A Has offloadiing in place as prescribed N/A N/A Experienced any changes in pain level or No No management Left Footwear Regular Shoe Right Footwear Regular Shoe Pain Scale: 0-10 Numeric Is Patient Pain Free? Yes WC - Nurse 1 - General Ulcer Measurement Start: 07/16/21 11:08 Freq: Status: Active Protocol: Activity Type Activity Date Activity User E-Sign Co-Sign Detail Recorded Client Recorded Date Recorded By Document 07/16/21 11:09 GA [id number] 07/16/21 11:11 AK Document 07/30/21 13:06 [facility] [id number] 07/30/21 13:09 [facility] 07/16/21 07/30/21 11:09 13:06 Wound Center Nurse 1 #9 BKA POST OP -Combined with other wound No -Current Size (cm) - Length 0.7 0.8 -Current Size (cm) - Width 0.5 0.2 -Current Size (cm) - Depth 0.1 0.1 -Total Square Cm 0.35 0.16 -Photo Taken No -Epithelialization Small 1-33% -Tunneling No -Undermining/Tunneling No -Circular Undermining No -Exudate Amt Small Small -Exudate Type Serosanguineous Serosanguineous -Wound Margin Distinct, Distinct, Outline Outline Attached Attached -Granulation Amt Small (1-33%) None Present (0 %) -Slough/Fibrin Yes -Necrosis Amt Small (1-33%) Small (1-33%) -Necrotic Tissue Type Adherent Slough Adherent Slough -Structure Exposed N/A -Texture (Love-wound Skin Appearance) Assessed, Assessed, Scarring Scarring -Moisture (Love-wound Skin Appearance) No Abnormality, No Abnormality, Assessed Assessed -Color (Olve-wound Skin Appearance) No Abnormality, No Abnormality, Assessed Assessed -Temperature (Love-wound Skin No Abnormality No Abnormality Appearance) (Pt Warm) (Pt Warm) -Tenderness on Palpation (Love-wound No No Skin Appearance) -Ulcer Cleansing Rinsed/ Rinsed/ Irrigated with Irrigated with Saline Saline -Foul Odor after Cleansing No No -Anesthetic Used 5% Lidocaine 4% Lidocaine Gel Solution WC - Nurse 2 - General Ulcer CM Notes Start: 07/16/21 11:08 Freq: Status: Active Protocol: Activity Type Activity Date Activity User E-Sign Co-Sign Detail Recorded Client Recorded Date Recorded By Document 07/16/21 11:53 [id number] 07/16/21 11:54 Document 07/30/21 13:19 [id number] 07/30/21 13:22 07/16/21 07/30/21 11:53 13:19 Wound Center Nurse 2 #9 BKA POST OP -Time 11:53 13:19 -Correct Patient Yes Yes -Correct Side, Site, Position Yes Yes -Correct Procedure Yes Yes -Procedure Performed Yes Yes -Type of Procedure Debridement Debridement -Clinical Debridement Subcutaneous Subcutaneous -Tissue Removed Subcutaneous Subcutaneous -Post Debridement (cm) - Length 0.9 1.1 -Post Debridement (cm) - Width 0.3 0.4 -Post Debridement (cm) - Depth 0.2 0.2 -Total Square (Post) (cm) 0.27 0.44 -Area of Debridement (cm) - Length 0.9 1.1 -Area of Debridement (cm) - Width 0.3 0.4 -Total Square (Area) (cm) 0.27 0.44 -Tunneling No No -Undermining/Tunneling No No -Circular Undermining No No -Wound/Ulcer Outcome Not Healed Not Healed -Ulcer Cleansing Rinsed/ Rinsed/ Irrigated with Irrigated with Saline Saline -Foul Odor after Cleansing No No -Bioengineered Tissue No No -Bleeding Controlled with Pressure Pressure -Offloading No No -Treatment Response Procedure Procedure Tolerated Well Tolerated Well -Debridement - Subq, 1st 20sq cm Yes Yes Pain Scale: 0-10 Numeric Is Patient Pain Free? Yes Yes WC - Nurse 3 - General Ulcer D/C NN Start: 07/16/21 11:08 Freq: Status: Active Protocol: Activity Type Activity Date Activity User E-Sign Co-Sign Detail Recorded Client Recorded Date Recorded By Document 07/16/21 12:04 DL [id number] 07/16/21 12:06 DL Document 07/30/21 13:30 [facility] [id number] 07/30/21 13:31 BM 07/16/21 07/30/21 12:04 13:30 Wound Care Nurse 3 #9 BKA POST OP -Ulcer Cleansing Rinsed/ Rinsed/ Irrigated with Irrigated with Saline Saline -Foul Odor after Cleansing No No -Primary Dressing Applied Mepilex Border, Mepilex Border, NonAdherent NonAdherent Contact Layer, Contact Layer, Promogran Promogran Tresa Matter Tresa Matter -Mepilex Border 1 1 -Promogran Tresa Matter 1 1 Right -Compression Wrap Javier Wrap Treatment Response Procedure Procedure Tolerated Well Tolerated Well Pain Scale: 0-10 Numeric Is Patient Pain Free? 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: CODE(S): T87.89 - Other complications of amputation stump; L97.919 - Non- pressure chronic ulcer of unspecified part of right lower leg with unspecified severity (2) DM2 (diabetes mellitus, type 2): CODE(S): E11.9 - Type 2 diabetes mellitus without complications QUALIFIERS: Diabetes mellitus complication detail: with other skin complication Diabetes mellitus group home insulin use: with group home use (3) Osteomyelitis: CODE(S): M86.9 - Osteomyelitis, unspecified (4) Tobacco abuse: CODE(S): Z72.0 - Tobacco use (5) Impaired physical mobility: CODE(S): Z74.09 - Other reduced mobility PLAN: Wound care - She has been approved for Epifix and Epicord. 4 applications of Epicord and 4 applications of Epifix (8 applications total of advanced wound product). Moistened Tresa daily covered with adaptic and topped with mepilex every other day. May wash ulcer daily with soap and ulcer at the time of dressing change. JAVIER wrap for compression. Finished Vancomycin and Flagyl. Discussed that she needs to stop smoking and get her HgbA1C below 8 before she is able to have a bone graft to the hole in her right BKA bone. She states her blood sugars have been under much better control. She is keeping them in the 130's mostly. She had restarted Chantix and started Nicotine patch but has had a lot of side effects. She is trying very hard to stop smoking. She states she is motivated to get healthier. HgbA1c 8.1 on 04/25/21. Encouraged increased protein intake and Vitamin C intake. She will follow up in 2 weeks.
== END 2021-08-07 23:59 ==
LOC: WC 13:00
PROVIDERS: Family Provider Internal Medicine; PCP Internal Medicine; Referring Provider Surgery; Visit Provider Nurse Practitioner Family
DX: E11.622 Type 2 diabetes mellitus with other skin ulcer (principal); T87.89 Other complications of amputation stump; Y83.8 Other surgical procedures as the cause of abnormal reaction of the patient, or of later complication, without mention of misadventure at the time of the procedure; E11.42 Type 2 diabetes mellitus with diabetic polyneuropathy; Z86.14 Personal history of Methicillin resistant Staphylococcus aureus infection; L97.811 Non-pressure chronic ulcer of other part of right lower leg limited to breakdown of skin
CPT/HCPCS: 11042

== ENCOUNTER 2021-08-13 13:04 | Outpatient (RCR) | payer MEDICARE, MEDICAID, SELFPAY ==
[2021-08-08 00:17] VITALS: BP 141/84; PULSE 113; RESP 18; TEMP 36.8; O2SAT 99; BMI 36.5
[2021-08-13 13:35] VITALS: BP 169/72; PULSE 69; TEMP 35.7; BMI 36.5
--- NOTE | 2021-08-13 14:38 | PCM.WC.PN ---
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 History of Wound: Surgery 01/02/21 - Surgical preparation anterior aspect right BKA stump with incision and drainage and excisional debridement nonhealing painful infected diabetic ulcer (12 cm2) and partial ostectomy tibia for osteomyelitis. Operative tissue cultures positive for Corynebacterium amycolatum, Anaerobic cocci and Fingoldia magna. Operative bone cultures positive for Anaerobic cocci and Fingoldia magna. Pathology of the bone was negative for acute osteomyelitis. She was treated with IV Vanc that was started 01/02/21 and Flagyl. PICC line pulled 01/15/21. Wound care - She was approved for Epicord and Epifix. She has had 4 applications of Epicord and 4 applications of Epifix (8 applications of advanced wound product). Moistened Tresa covered adaptic covered with Mepilex every other day. She has a very small bone exposed. JOSE D wrap for compression. Surgery 12/07/19 - 1. Surgical preparation right BKA stump with incision and drainage and excisional debridement infected hematoma (19.25 cm2). 2. Partial ostectomy tibia for osteomyelitis. Wound cultures obtained on 09/11/20 and were positive for Entercoccus faecalis and Anaerobic cocci. She has been taking Augmentin and a probiotic. Operative bone culture and tissue culture from 12/07/19 showed Staphylococcus aureus. She was treated with Doxycycline. Pathology was negative for osteomyelitis. Pathology from 06/26 was positive for osteomyelitis. Her HgA1c from 12/07/19 was 10.5. Prealbumin from 12/07/19 was 14. Another wound culture was obtained on 02/21/20. It showed Enterococcus faecalis. She was started on Augmentin and has finished them. She had another wound culture on 07/11/20. It showed Anaerococcus prevoti and Anaerobic cocci. She was placed on Augmentin and has finished them. An MRI was done on 10/13/20. It showed subtle area of abnormal signal within the distal tibial stump anteriorly with overlying soft tissue thinning and edema. This may represent early osteomyelitis. I do not see a definite abscess. It may be of benefit to repeat the study with intravenous contrast for further evaluation if clinically indicated. She denies fever today and states her appetite is ok. Progress of Wound: Small amount of improvement. She continues to have a small amount of bone exposure. Objective Data Objective Data Vital Signs: Vital Signs Temp Pulse Resp BP Pulse Ox 96.3 F L 69 18 169/72 H 99 08/13/21 13:35 08/13/21 13:35 08/08/21 00:17 08/13/21 13:35 08/08/21 00:17 Weight: 203 lb Body Mass Index (BMI) 36.5 Charges/Coding Procedures Integumentary 111xxx-113xx: 15543 Annalisa subq tissue 20 sq cm/< Physical Exam Const alert and oriented x3 General Appearance: cooperative HEENT normocephalic Head and Scalp: atraumatic Eyes PERRL Lymph Lymphatic: no lymphedema noted Resp normal respiratory effort Cardio regular rate GI non-tender Palpation: soft Extremity normal capillary refill Skin Wound Narrative: Right BKA stump ulcer with minimal improvement, there continues to be a small piece of bone exposed. The area is very sensitive to palpation. Neuro CN's II-XII intact bilaterally Psych Appearance: grossly normal Debridement Note Debridement Note Wound debrided: BKA stump ulcer Laterality: Right Type of Debridement: Excisional debridement Anesthesia Used: 5% Lidocaine Gel Depth: Down to and including healthy tissue and in the subcutaneous layer Percentage of wound debrided: 100 Instrument Used: 3mm curette Tissue Removed: Subcutaneous tissue and slough Severity: Fat Layer Exposed Amount of bleeding with debridement: Mild Bleeding Controlled with: Pressure Patient tolerated procedure: Patient tolerated procedure well Post-Debridement Measurements and Additional Note: Post-Debridement Measurements/Treatment WC - Nurse 1 - General Ulcer Assessment Start: 08/13/21 13:24 Freq: Status: Active Protocol: KRISTIE Activity Type Activity Date Activity User E-Sign Co-Sign Detail Recorded Client Recorded Date Recorded By Document 08/13/21 13:35 BURAK [id number] 08/13/21 13:37 BURAK 08/13/21 13:35 - Today's Visit Information Type of service Follow-up Visit (Physician/BASKETBALL PLAYER ) Arrival Mode Other Arrival Mode (Other) knee scooter Patient Identification Verified (Name & Yes ) Patient Requires Transmission-Based No Precautions Safety Precautions NA Height and Weight Body Mass Index (BMI) 36.5 BMI Classification Obese Vital Signs Temperature (97.8 F-99.1 F) 96.3 F L Temperature Source Temporal Pulse Rate (60-100) 69 Pulse Location Monitor Blood Pressure (90/60-120/80) 169/72 H Blood Pressure Mean (mm Hg) 104 Source Monitor History Since Last Visit- (Skip if this is Patient's initial visit) Have you changed medications since your No last visit? Any new allergies or adverse reactions No Had a fall/change in ADL's that may No increase risk of falls Signs or symptoms of abuse and/or No neglect since last visit Have you been in the hospital since your No last visit? Has dressing in place as prescribed Yes Has compression in place as prescribed Yes Has offloadiing in place as prescribed N/A Experienced any changes in pain level or No management Left Footwear Regular Shoe WC - Nurse 1 - General Ulcer Measurement Start: 08/13/21 13:24 Freq: Status: Active Protocol: Activity Type Activity Date Activity User E-Sign Co-Sign Detail Recorded Client Recorded Date Recorded By Document 08/13/21 13:35 BURAK [id number] 08/13/21 13:37 BURAK 08/13/21 13:35 Wound Center Nurse 1 #9 BKA POST OP -Combined with other wound No -Current Size (cm) - Length 0.6 -Current Size (cm) - Width 0.4 -Current Size (cm) - Depth 0.1 -Total Square Cm 0.24 -Photo Taken No -Epithelialization Medium 34-66% -Tunneling No -Undermining/Tunneling No -Circular Undermining No -Change in Wound Grade/Stage No -Exudate Amt Medium -Exudate Type Serosanguineous -Granulation Amt Small (1-33%) -Slough/Fibrin Yes -Necrosis Amt Small (1-33%) -Necrotic Tissue Type Adherent Slough -Structure Exposed N/A -Texture (Love-wound Skin Appearance) Assessed, Scarring -Moisture (Love-wound Skin Appearance) No Abnormality, Assessed -Color (Love-wound Skin Appearance) No Abnormality, Assessed -Temperature (Love-wound Skin No Abnormality Appearance) (Pt Warm) -Tenderness on Palpation (Love-wound No Skin Appearance) -Ulcer Cleansing Rinsed/ Irrigated with Saline -Foul Odor after Cleansing No -Anesthetic Used 4% Lidocaine Solution WC - Nurse 2 - General Ulcer CM Notes Start: 08/13/21 13:24 Freq: Status: Active Protocol: Activity Type Activity Date Activity User E-Sign Co-Sign Detail Recorded Client Recorded Date Recorded By Document 08/13/21 13:24 JF [id number] 08/13/21 13:27 08/13/21 13:24 Wound Center Nurse 2 -Time 13:25 -Correct Patient Yes -Correct Side, Site, Position Yes -Correct Procedure Yes -Procedure Performed Yes -Type of Procedure Debridement -Clinical Debridement Subcutaneous -Tissue Removed Subcutaneous -Post Debridement (cm) - Length 0.8 -Post Debridement (cm) - Width 0.5 -Post Debridement (cm) - Depth 0.2 -Total Square (Post) (cm) 0.40 -Area of Debridement (cm) - Length 0.8 -Area of Debridement (cm) - Width 0.5 -Total Square (Area) (cm) 0.40 -Tunneling No -Undermining/Tunneling No -Circular Undermining No -Wound/Ulcer Outcome Not Healed -Ulcer Cleansing Rinsed/ Irrigated with Saline -Foul Odor after Cleansing No -Bioengineered Tissue No -Bleeding Controlled with Pressure -Offloading No -Treatment Response Procedure Tolerated Well -Debridement - Subq, 1st 20sq cm Yes Pain Scale: 0-10 Numeric Is Patient Pain Free? Yes - Nurse 3 - General Ulcer D/C NN Start: 08/13/21 13:24 Freq: Status: Active Protocol: Activity Type Activity Date Activity User E-Sign Co-Sign Detail Recorded Client Recorded Date Recorded By Document 08/13/21 13:28 JF [id number] 08/13/21 13:32 08/13/21 13:28 Wound Care Nurse 3 #9 BKA POST OP -Ulcer Cleansing Rinsed/ Irrigated with Saline -Foul Odor after Cleansing No -Primary Dressing Applied Mepilex Border, Promogran Tresa Matter -Mepilex Border 1 -Promogran Tresa Matter 1 Pain Scale: 0-10 Numeric Is Patient Pain Free? 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: CODE(S): T87.89 - Other complications of amputation stump; L97.919 - Non-pressure chronic ulcer of unspecified part of right lower leg with unspecified severity (2) Diabetic ulcer of lower extremity: CODE(S): E11.622 - Type 2 diabetes mellitus with other skin ulcer; L97.909 - Non-pressure chronic ulcer of unspecified part of unspecified lower leg with unspecified severity (3) 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: CODE(S): T87.89 - Other complications of amputation stump; M79.604 - Pain in right leg (4) Tobacco abuse: CODE(S): Z72.0 - Tobacco use (5) DM2 (diabetes mellitus, type 2): CODE(S): E11.9 - Type 2 diabetes mellitus without complications QUALIFIERS: Diabetes mellitus complication detail: with other skin complication 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 4 applications of Epicord and 4 applications of Epifix (8 applications total of advanced wound product). Wound care - Moistened Tresa daily covered with adaptic and topped with mepilex every other day. May wash ulcer daily with soap and ulcer at the time of dressing change. JOSE D wrap for compression. Finished Vancomycin and Flagyl. Discussed that she needs to stop smoking and get her HgbA1C below 8 before she is able to have a bone graft to the hole in her right BKA bone. She states her blood sugars have been under much better control. She is keeping them in the 130's mostly. She had restarted Chantix and started Nicotine patch but has had a lot of side effects. She is trying very hard to stop smoking. She states she is motivated to get healthier. HgbA1c 8.1 on 04/25/21. She is due to have her HgbA1c rechecked but she keeps forgetting to go have it drawn. Encouraged increased protein intake and Vitamin C intake. She will follow up in 2 weeks.
== END 2021-09-07 23:59 ==
LOC: WC 13:04
PROVIDERS: Family Provider Internal Medicine; PCP Internal Medicine; Referring Provider Surgery; Visit Provider Nurse Practitioner Family
DX: E11.622 Type 2 diabetes mellitus with other skin ulcer (principal); Z89.511 Acquired absence of right leg below knee; T87.89 Other complications of amputation stump; Y83.8 Other surgical procedures as the cause of abnormal reaction of the patient, or of later complication, without mention of misadventure at the time of the procedure; L97.812 Non-pressure chronic ulcer of other part of right lower leg with fat layer exposed; Z87.39 Personal history of other diseases of the musculoskeletal system and connective tissue; Z72.0 Tobacco use
CPT/HCPCS: 11042

== ENCOUNTER 2021-09-17 13:15 | Outpatient (RCR) | payer MEDICARE, MEDICAID, SELFPAY ==
[2021-09-08 00:17] VITALS: BP 169/72; PULSE 69; RESP 18; TEMP 35.7; O2SAT 99; BMI 36.5
[2021-09-17 13:18] VITALS: BP 153/69; PULSE 92; TEMP 36.1; BMI 36.5
--- NOTE | 2021-09-17 14:01 | PN.PCM_ITS ---
History of Present Illness Date of Service: 09/17/21 Chief Complaint: Nohealing infected diabetic ulcer anterior aspect right BKA stump. History of Wound: Surgery 01/02/21 - Surgical preparation anterior aspect right BKA stump with incision and drainage and excisional debridement nonhealing painful infected diabetic ulcer (12 cm2) and partial ostectomy tibia for osteomyelitis. Operative tissue cultures positive for Corynebacterium amycolatum, Anaerobic cocci and Fingoldia magna. Operative bone cultures positive for Anaerobic cocci and Fingoldia magna. Pathology of the bone was negative for acute osteomyelitis. She was treated with IV Vanc that was started 01/02/21 and Flagyl. PICC line pulled 01/15/21. Wound care - She was approved for Epicord and Epifix. She has had 4 applications of Epicord and 4 applications of Epifix (8 applications of advanced wound product). Moistened Tresa covered adaptic covered with Mepilex every other day. She has a very small bone exposed. JOSE D wrap for compression. Surgery 12/07/19 - 1. Surgical preparation right BKA stump with incision and dr moody and excisional debridement infected hematoma (19.25 cm2). 2. Partial ostectomy tibia for osteomyelitis. Wound cultures obtained on 09/11/20 and were positive for Entercoccus faecalis and Anaerobic cocci. She has been taking Augmentin and a probiotic. Operative bone culture and tissue culture from 12/07/19 showed Staphylococcus aureus. She was treated with Doxycycline. Pathology was negative for osteomyelitis. Pathology from 06/26 was positive for osteomyelitis. Her HgA1c from 12/07/19 was 10.5. Prealbumin from 12/07/19 was 14. Another wound culture was obtained on 02/21/20. It showed Enterococcus faecalis. She was started on Augmentin and has finished them. She had another wound culture on 07/11/20. It showed Anaerococcus prevoti and Anaerobic cocci. She was placed on Augmentin and has finished them. An MRI was done on 10/13/20. It showed subtle area of abnormal signal within the distal tibial stump anteriorly with overlying soft tissue thinning and edema. This may represent early osteomyelitis. I do not see a definite abscess. It may be of benefit to repeat the study with intravenous contrast for further evaluation if clinically indicated. She denies fever today and states her appetite is ok. Progress of Wound: Stable. Ulcer is still very painful light touch. Objective Data Objective Data Vital Signs: Vital Signs Temp Pulse Resp BP Pulse Ox 96.9 F L 92 18 153/69 H 99 09/17/21 13:18 09/17/21 13:18 09/08/21 00:17 09/17/21 13:18 09/08/21 00:17 Weight: 203 lb Body Mass Index (BMI) 36.5 Charges/Coding Procedures Integumentary 111xxx-113xx: 85722 Annalisa subq tissue 20 sq cm/< Physical Exam Const alert and oriented x3 General Appearance: cooperative HEENT normocephalic Resp normal respiratory effort Cardio regular rate GI non-tender Palpation: soft Extremity normal capillary refill Skin Wound Narrative: Right BKA ulcer is beefy pink, with small bone exposure. It bleeds better today than it previously has with debridement. Neuro CN's II-XII intact bilaterally Psych Appearance: grossly normal Debridement Note Debridement Note Wound debrided: BKA ulcer Laterality: Right Type of Debridement: Excisional debridement Anesthesia Used: 5% Lidocaine Gel Depth: Down to and including healthy tissue, in the subcutaneous layer and to bone Percentage of wound debrided: 100 Instrument Used: 3mm curette Tissue Removed: Subcutaneous tissue and slough Severity: Fat Layer Exposed Amount of bleeding with debridement: Mild Bleeding Controlled with: Pressure and Compression and gauze Patient tolerated procedure: Patient tolerated procedure well Debridement Free Text: Ulcer bleed well with debridement today, more so than previously. 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 Any new allergies or adverse reactions No Had a fall/change in ADL's that may No increase risk of falls Signs or symptoms of abuse and/or No neglect since last visit Have you been in the hospital since your No last visit? Has dressing in place as prescribed Yes Has compression in place as prescribed N/A Has offloadiing in place as prescribed N/A Experienced any changes in pain level or Yes management Left Footwear Regular Shoe WC - Nurse 1 - General Ulcer Measurement Start: 09/17/21 13:18 Freq: Status: Active Protocol: Activity Type Activity Date Activity User E-Sign Co-Sign Detail Recorded Client Recorded Date Recorded By Document 09/17/21 13:18 BURAK [id number] 09/17/21 13:21 AK 09/17/21 13:18 Wound Center Nurse 1 #9 Right BKA POST OP -Combined with other wound No -Current Size (cm) - Length 1.8 -Current Size (cm) - Width 0.5 -Current Size (cm) - Depth 0.1 -Total Square Cm 0.90 -Photo Taken No -Epithelialization None Present -Tunneling No -Undermining/Tunneling No -Circular Undermining No -Change in Wound Grade/Stage No -Exudate Amt Small -Exudate Type Serosanguineous -Wound Margin Distinct, Outline Attached -Granulation Amt None Present (0 %) -Slough/Fibrin Yes -Necrosis Amt Small (1-33%) -Necrotic Tissue Type Adherent Slough -Structure Exposed N/A -Texture (Love-wound Skin Appearance) Assessed, Scarring -Moisture (Love-wound Skin Appearance) Assessed,Dry/ Scaly -Color (Love-wound Skin Appearance) No Abnormality, Assessed -Temperature (Love-wound Skin No Abnormality Appearance) (Pt Warm) -Tenderness on Palpation (Love-wound No Skin Appearance) -Ulcer Cleansing Rinsed/ Irrigated with Saline -Anesthetic Used 5% Lidocaine Gel WC - Nurse 2 - General Ulcer CM Notes Start: 09/17/21 13:18 Freq: Status: Active Protocol: Activity Type Activity Date Activity User E-Sign Co-Sign Detail Recorded Client Recorded Date Recorded By Document 09/17/21 13:30 [id number] 09/17/21 13:33 09/17/21 13:30 Wound Center Nurse 2 -Time 13:32 -Correct Patient Yes -Correct Side, Site, Position Yes -Correct Procedure Yes -Procedure Performed Yes -Type of Procedure Debridement -Clinical Debridement Subcutaneous -Tissue Removed Subcutaneous -Post Debridement (cm) - Length 0.9 -Post Debridement (cm) - Width 0.5 -Post Debridement (cm) - Depth 0.1 -Total Square (Post) (cm) 0.45 -Area of Debridement (cm) - Length 0.9 -Area of Debridement (cm) - Width 0.5 -Total Square (Area) (cm) 0.45 -Tunneling No -Undermining/Tunneling No -Circular Undermining No -Wound/Ulcer Outcome Not Healed -Ulcer Cleansing Rinsed/ Irrigated with Saline -Foul Odor after Cleansing No -Bioengineered Tissue No -Bleeding Controlled with Pressure -Offloading No -Treatment Response Procedure Tolerated Well -Debridement - Subq, 1st 20sq cm Yes Pain Scale: 0-10 Numeric Is Patient Pain Free? 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9 - Osteomyelitis, unspecified (6) Hx of right BKA: CODE(S): Z89.511 - Acquired absence of right leg below knee (7) Chronic pain: CODE(S): G89.29 - Other chronic pain (8) DM2 (diabetes mellitus, type 2): CODE(S): E11.9 - Type 2 diabetes mellitus without complications QUALIFIERS: Diabetes mellitus complication detail: with other skin complication 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 4 applications of Epicord and 4 applications of Epifix (8 applications total of advanced wound product). Wound care - Moistened Tresa daily covered with adaptic and topped with mepilex every other day. May wash ulcer daily with soap and ulcer at the time of dressing change. JOSE D wrap for compression. Finished Vancomycin and Flagyl. Discussed that she needs to stop smoking and get her HgbA1C below 8 before she is able to have a bone graft to the hole in her right BKA bone. She states her blood sugars have been under much better control. She is keeping them in the 130's mostly. She had restarted Chantix and started Nicotine patch but has had a lot of side effects. She is trying very hard to stop smoking. She states she is motivated to get healthier. HgbA1c 8.1 on 04/25/21. She is due to have her HgbA1c rechecked but she keeps forgetting to go have it drawn. Encouraged increased protein intake and Vitamin C intake. Encouraged patient to stop smoking as it may have deleterious effects on wound healing. She will follow up in 2 weeks.
== END 2021-10-08 23:59 ==
LOC: WC 13:15
PROVIDERS: Family Provider Internal Medicine; PCP Internal Medicine; Referring Provider Surgery; Visit Provider Nurse Practitioner Family
DX: E11.622 Type 2 diabetes mellitus with other skin ulcer (principal); Z89.511 Acquired absence of right leg below knee; T87.89 Other complications of amputation stump; L97.812 Non-pressure chronic ulcer of other part of right lower leg with fat layer exposed; L98.492 Non-pressure chronic ulcer of skin of other sites with fat layer exposed; Z72.0 Tobacco use; Y83.8 Other surgical procedures as the cause of abnormal reaction of the patient, or of later complication, without mention of misadventure at the time of the procedure
CPT/HCPCS: 11042

== ENCOUNTER 2021-11-05 14:30 | Outpatient (RCR) | payer MEDICARE, SELFPAY ==
[2021-10-09 00:22] VITALS: BP 153/69; PULSE 92; RESP 18; TEMP 36.1; O2SAT 99; BMI 36.5
[2021-10-22 14:30] VITALS: BP 124/73; PULSE 100; RESP 18; TEMP 36.8; BMI 36.5
--- NOTE | 2021-10-22 15:10 | PCM.WC.PN ---
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 History of Wound: Surgery 01/02/21 - Surgical preparation anterior aspect right BKA stump with incision and drainage and excisional debridement nonhealing painful infected diabetic ulcer (12 cm2) and partial ostectomy tibia for osteomyelitis. Operative tissue cultures positive for Corynebacterium amycolatum, Anaerobic cocci and Fingoldia magna. Operative bone cultures positive for Anaerobic cocci and Fingoldia magna. Pathology of the bone was negative for acute osteomyelitis. She was treated with IV Vanc that was started 01/02/21 and Flagyl. PICC line pulled 01/15/21. Wound care - She was approved for Epicord and Epifix. She has had 4 applications of Epicord and 4 applications of Epifix (8 applications of advanced wound product). Collagen hydrogel covered with Mepilex every other day. She has a very small bone exposed. JOSE D wrap for compression. For her new ulcer that reopened on her left medial buttock will place Aquacel-Ag covered with mepilex every other day. Surgery 12/07/19 - 1. Surgical preparation right BKA stump with incision and drainage and excisional debridement infected hematoma (19.25 cm2). 2. Partial ostectomy tibia for osteomyelitis. Wound cultures obtained on 09/11/20 and were positive for Entercoccus faecalis and Anaerobic cocci. She has been taking Augmentin and a probiotic. Operative bone culture and tissue culture from 12/07/19 showed Staphylococcus aureus. She was treated with Doxycycline. Pathology was negative for osteomyelitis. Pathology from 06/26 was positive for osteomyelitis. Her HgA1c from 12/07/19 was 10.5. Prealbumin from 12/07/19 was 14. Another wound culture was obtained on 02/21/20. It showed Enterococcus faecalis. She was started on Augmentin and has finished them. She had another wound culture on 07/11/20. It showed Anaerococcus prevoti and Anaerobic cocci. She was placed on Augmentin and has finished them. An MRI was done on 10/13/20. It showed subtle area of abnormal signal within the distal tibial stump anteriorly with overlying soft tissue thinning and edema. This may represent early osteomyelitis. I do not see a definite abscess. It may be of benefit to repeat the study with intravenous contrast for further evaluation if clinically indicated. She denies fever today and states her appetite is ok. Progress of Wound: Right BKA stump ulcer is very small with bone at the base of the ulcer. She has a new reopened ulcer on her left medial buttocks in the scar tissue of a previous healed ulcer. It is very small and appears that the scar tissue . Objective Data Objective Data Vital Signs: Vital Signs Temp Pulse Resp BP Pulse Ox 98.2 F 100 18 124/73 H 99 10/22/21 14:30 10/22/21 14:30 10/22/21 14:30 10/22/21 14:30 10/09/21 00:22 Weight: 203 lb Body Mass Index (BMI) 36.5 Charges/Coding Procedures Integumentary 111xxx-113xx: 77495 Annalisa subq tissue 20 sq cm/< Physical Exam Const alert and oriented x3 HEENT normocephalic Head and Scalp: atraumatic Resp normal respiratory effort Cardio regular rate Extremity normal capillary refill Skin Wound Narrative: Right BKA stump ulcer is very small with bone at the base of the ulcer. She has a new reopened ulcer on her left medial buttocks in the scar tissue of a previous healed ulcer. It is very small and appears that the scar tissue . Neuro CN's II-XII intact bilaterally Psych Appearance: grossly normal Debridement Note Debridement Note Wound debrided: BKA stump ulcer Laterality: Right Type of Debridement: Excisional debridement Anesthesia Used: 5% Lidocaine Gel Depth: Down to and including healthy tissue and in the subcutaneous layer Percentage of wound debrided: 100 Instrument Used: 3mm curette Tissue Removed: scabbing and non viable tissue. Severity: Fat Layer Exposed Amount of bleeding with debridement: Mild Bleeding Controlled with: Pressure Patient tolerated procedure: Patient did not tolerate procedure well Post-Debridement Measurements and Additional Note: Post-Debridement Measurements/Treatment - Nurse 1 - General Ulcer Assessment Start: 10/22/21 14:29 Freq: Status: Active Protocol: KRISTIE Activity Type Activity Date Activity User E-Sign Co-Sign Detail Recorded Client Recorded Date Recorded By Document 10/22/21 14:30 DL [id number] 10/22/21 14:39 DL 10/22/21 14:30 - Today's Visit Information Type of service Follow-up Visit (Physician/DIRECTOR OF APPLICATION DEVELOPMENT ) Arrival Mode Walker Transfer Assistance None Patient Identification Verified (Name & Yes ) Patient Requires Transmission-Based No Precautions Height and Weight Body Mass Index (BMI) 36.5 BMI Classification Obese Vital Signs Temperature (97.8 F-99.1 F) 98.2 F Temperature Source Temporal Pulse Rate (60-100) 100 Pulse Location Monitor Respiratory Rate (12-18) 18 Respiratory rate source Observation Blood Pressure (90/60-120/80) 124/73 H Blood Pressure Mean (mm Hg) 90 Source Monitor History Since Last Visit- (Skip if this is Patient's initial visit) Have you changed medications since your No last visit? Any new allergies or adverse reactions No Had a fall/change in ADL's that may No increase risk of falls Signs or symptoms of abuse and/or No neglect since last visit Have you been in the hospital since your No last visit? Has dressing in place as prescribed Yes Has compression in place as prescribed N/A Has offloadiing in place as prescribed Yes Experienced any changes in pain level or No management Pain Scale: 0-10 Numeric Is Patient Pain Free? Yes WC - Nurse 1 - General Ulcer Measurement Start: 10/22/21 14:29 Freq: Status: Active Protocol: Activity Type Activity Date Activity User E-Sign Co-Sign Detail Recorded Client Recorded Date Recorded By Document 10/22/21 14:30 DL [id number] 10/22/21 14:39 DL 10/22/21 14:30 Wound Center Nurse 1 #9 Right BKA POST OP -Current Size (cm) - Length 0.2 -Current Size (cm) - Width 0.1 -Current Size (cm) - Depth 0.1 -Total Square Cm 0.02 -Photo Taken Yes -Exudate Amt None Present -Wound Margin Flat & Intact -Granulation Amt Large (67-100%) -Granulation Quality [place] -Necrosis Amt Small (1-33%) -Necrotic Tissue Type Adherent Slough -Structure Exposed N/A -Texture (Love-wound Skin Appearance) Scarring -Moisture (Love-wound Skin Appearance) No Abnormality -Color (Love-wound Skin Appearance) No Abnormality -Temperature (Love-wound Skin No Abnormality Appearance) (Pt Warm) -Tenderness on Palpation (Love-wound No Skin Appearance) -Ulcer Cleansing Rinsed/ Irrigated with Saline -Foul Odor after Cleansing No -Anesthetic Used 4% Lidocaine Solution WC - Nurse 2 - General Ulcer CM Notes Start: 10/22/21 14:29 Freq: Status: Active Protocol: Activity Type Activity Date Activity User E-Sign Co-Sign Detail Recorded Client Recorded Date Recorded By Document 10/22/21 14:41 SHAYNA [id number] 10/22/21 14:50 SHAYNA 10/22/21 14:41 Wound Center Nurse 2 10-left medial buttucks -Time 14:43 -Correct Patient Yes -Correct Side, Site, Position Yes -Correct Procedure Yes -Procedure Performed Yes -Type of Procedure Debridement -Clinical Debridement Subcutaneous -Tissue Removed Subcutaneous -Post Debridement (cm) - Length 0.3 -Post Debridement (cm) - Width 0.3 -Post Debridement (cm) - Depth 0.1 -Total Square (Post) (cm) 0.09 -Area of Debridement (cm) - Length 0.3 -Area of Debridement (cm) - Width 0.3 -Total Square (Area) (cm) 0.09 -Tunneling No -Undermining/Tunneling No -Circular Undermining No -Wound/Ulcer Outcome Not Healed -Ulcer Cleansing Rinsed/ Irrigated with Saline -Foul Odor after Cleansing No -Bioengineered Tissue No -Bleeding Controlled with Pressure -Offloading No -Treatment Response Procedure Tolerated Well -Debridement - Subq, 1st 20sq cm No #9 Right BKA POST OP -Time 14:49 -Correct Patient Yes -Correct Side, Site, Position Yes -Correct Procedure Yes -Procedure Performed Yes -Type of Procedure Debridement -Clinical Debridement Subcutaneous -Tissue Removed Subcutaneous -Post Debridement (cm) - Length 0.2 -Post Debridement (cm) - Width 0.2 -Post Debridement (cm) - Depth 0.1 -Total Square (Post) (cm) 0.04 -Area of Debridement (cm) - Length 0.2 -Area of Debridement (cm) - Width 0.2 -Total Square (Area) (cm) 0.04 -Tunneling No -Undermining/Tunneling No -Circular Undermining No -Wound/Ulcer Outcome Not Healed -Ulcer Cleansing Rinsed/ Irrigated with Saline -Foul Odor after Cleansing No -Bioengineered Tissue No -Bleeding Controlled with Pressure -Offloading No -Treatment Response Procedure Tolerated Well -Debridement - Subq, 1st 20sq cm Yes Pain Scale: 0-10 Numeric Is Patient Pain Free? Yes - Nurse 3 - General Ulcer D/C NN Start: 10/22/21 14:29 Freq: Status: Active Protocol: Activity Type Activity Date Activity User E-Sign Co-Sign Detail Recorded Client Recorded Date Recorded By Document 10/22/21 14:54 [facility] [id number] 10/22/21 14:55 [facility] 10/22/21 14:54 Wound Care Nurse 3 10-left medial buttucks -Ulcer Cleansing Rinsed/ Irrigated with Saline -Foul Odor after Cleansing No -Primary Dressing Applied Aquacel AG 2x2, Mepilex Border -Aquacel AG 2x2 1 -Mepilex Border 1 #9 Right BKA POST OP -Ulcer Cleansing Rinsed/ Irrigated with Saline -Foul Odor after Cleansing No -Primary Dressing Applied C Hydrogel ($), Mepilex Border -Mepilex Border 1 Treatment Response Procedure Tolerated Well Pain Scale: 0-10 Numeric Is Patient Pain Free? Yes - Visit Discharge Discharge Condition Stable Ambulatory Status Ambulatory, Walker Notes: knee walker Additional Wound Wound debrided: medial buttock ulcer Laterality: Left Type of Debridement: Excisional debridement Anesthesia Used: 5% Lidocaine Gel Depth: Down to and including healthy tissue and in the subcutaneous layer Percentage of wound debrided: 100 Instrument Used: - (size 1 curette) Tissue Removed: scabbing and non viable tissue Severity: Limited To Skin Breakdown Amount of bleeding with debridement: Mild Bleeding Controlled with: Pressure Patient tolerated procedure: Patient tolerated procedure well Assessment/Plan Assessment/Plan 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: CODE(S): T87.89 - Other complications of amputation stump; L97.919 - Non-pressure chronic ulcer of unspecified part of right lower leg with unspecified severity (2) Diabetic ulcer of lower extremity: CODE(S): E11.622 - Type 2 diabetes mellitus with other skin ulcer; L97.909 - Non-pressure chronic ulcer of unspecified part of unspecified lower leg with unspecified severity (3) Diabetic ulcer of left buttock: CODE(S): E11.622 - Type 2 diabetes mellitus with other skin ulcer; L98.419 - Non-pressure chronic ulcer of buttock with unspecified severity (4) History of osteomyelitis: CODE(S): Z87.39 - Personal history of other diseases of the musculoskeletal system and connective tissue (5) Impaired physical mobility: CODE(S): Z74.09 - Other reduced mobility (6) Tobacco abuse: CODE(S): Z72.0 - Tobacco use (7) DM2 (diabetes mellitus, type 2): CODE(S): E11.9 - Type 2 diabetes mellitus without complications QUALIFIERS: Diabetes mellitus complication detail: with other skin complication Diabetes mellitus halfway insulin use: with halfway use PLAN: She was approved for Epifix and Epicord. 4 applications of Epicord and 4 applications of Epifix (8 applications total of advanced wound product). Wound care - Right BKA stump ulcer collagen hydrogel topped with mepilex every other day. May wash ulcer daily with soap and ulcer at the time of dressing change. JOSE D wrap for compression. Left medial buttock ulcer - Aquacel-Ag covered with mepilex every other day. Finished Vancomycin and Flagyl. Discussed that she needs to stop smoking and get her HgbA1C below 8 before she is able to have a bone graft to the hole in her right BKA bone. She states her blood sugars have been under much better control. She is keeping them in the 130's mostly. She had restarted Chantix and started Nicotine patch but has had a lot of side effects. She is trying very hard to stop smoking. She states she is motivated to get healthier. HgbA1c 8.1 on 04/25/21. She is due to have her HgbA1c rechecked but she keeps forgetting to go have it drawn. Encouraged increased protein intake and Vitamin C intake. Encouraged patient to stop smoking as it may have deleterious effects on wound healing. She will follow up in 2 weeks.
[2021-11-05 14:40] VITALS: BP 143/74; PULSE 106; RESP 18; TEMP 36.6; BMI 36.5
--- NOTE | 2021-11-05 15:36 | PCM.WC.PN ---
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 History of Wound: Surgery 01/02/21 - Surgical preparation anterior aspect right BKA stump with incision and drainage and excisional debridement nonhealing painful infected diabetic ulcer (12 cm2) and partial ostectomy tibia for osteomyelitis. Operative tissue cultures positive for Corynebacterium amycolatum, Anaerobic cocci and Fingoldia magna. Operative bone cultures positive for Anaerobic cocci and Fingoldia magna. Pathology of the bone was negative for acute osteomyelitis. She was treated with IV Vanc that was started 01/02/21 and Flagyl. PICC line pulled 01/15/21. Wound care - She was approved for Epicord and Epifix. She has had 4 applications of Epicord and 4 applications of Epifix (8 applications of advanced wound product). Collagen hydrogel covered with Mepilex every other day. She has a very small bone exposed. JOSE D wrap for compression. For her left medial buttock ulcer will place Aquacel-Ag covered with mepilex every other day. Surgery 12/07/19 - 1. Surgical preparation right BKA stump with incision and drainage and excisional debridement infected hematoma (19.25 cm2). 2. Partial ostectomy tibia for osteomyelitis. Wound cultures obtained on 09/11/20 and were positive for Entercoccus faecalis and Anaerobic cocci. She has been taking Augmentin and a probiotic. Operative bone culture and tissue culture from 12/07/19 showed Staphylococcus aureus. She was treated with Doxycycline. Pathology was negative for osteomyelitis. Pathology from 06/26 was positive for osteomyelitis. Her HgA1c from 12/07/19 was 10.5. Prealbumin from 12/07/19 was 14. Another wound culture was obtained on 02/21/20. It showed Enterococcus faecalis. She was started on Augmentin and has finished them. She had another wound culture on 07/11/20. It showed Anaerococcus prevoti and Anaerobic cocci. She was placed on Augmentin and has finished them. An MRI was done on 10/13/20. It showed subtle area of abnormal signal within the distal tibial stump anteriorly with overlying soft tissue thinning and edema. This may represent early osteomyelitis. I do not see a definite abscess. It may be of benefit to repeat the study with intravenous contrast for further evaluation if clinically indicated. She denies fever today and states her appetite is ok. Progress of Wound: Right BKA stump ulcer is very small with bone at the base of the ulcer, the ulcer is very small. Her left medial buttock ulcer in the scar tissue of a previous healed ulcer. It is very small and appears that the scar tissue . Objective Data Objective Data Vital Signs: Vital Signs Temp Pulse Resp BP Pulse Ox 98 F 106 H 18 143/74 H 99 11/05/21 14:40 11/05/21 14:40 11/05/21 14:40 11/05/21 14:40 10/09/21 00:22 Weight: 203 lb Body Mass Index (BMI) 36.5 Charges/Coding Procedures Integumentary [id number]: [id number] Annalisa subq tissue 20 sq cm/< Physical Exam Const alert and oriented x3 General Appearance: cooperative HEENT normocephalic Head and Scalp: atraumatic Resp normal respiratory effort Cardio regular rate GI Palpation: soft Extremity normal capillary refill Skin Wound Narrative: Right BKA stump ulcer is very small with bone at the base of the ulcer, the ulcer is very small. Her left medial buttock ulcer in the scar tissue of a previous healed ulcer. It is very small and appears that the scar tissue . Neuro CN's II-XII intact bilaterally Debridement Note Debridement Note Wound debrided: Stump ulcer Laterality: Right Type of Debridement: Excisional debridement Anesthesia Used: 5% Lidocaine Gel Depth: Down to and including healthy tissue and in the subcutaneous layer Percentage of wound debrided: 100 Instrument Used: - (1 mm curette) Tissue Removed: Nonviable tissue and slough Severity: Fat Layer Exposed Amount of bleeding with debridement: Mild Bleeding Controlled with: Pressure Patient tolerated procedure: Patient tolerated procedure well Post-Debridement Measurements and Additional Note: Post-Debridement Measurements/Treatment SOL - Nurse 1 - General Ulcer Assessment Start: 10/22/21 14:29 Freq: Status: Active Protocol: KRISTIE Activity Type Activity Date Activity User E-Sign Co-Sign Detail Recorded Client Recorded Date Recorded By Document 10/22/21 14:30 DL [id number] 10/22/21 14:39 DL Document 11/05/21 14:40 DL [id number] 11/05/21 14:45 DL 10/22/21 11/05/21 14:30 14:40 - Today's Visit Information Type of service Follow-up Visit Follow-up Visit (Physician/RESEARCH CHEF (Physician/RESEARCH CHEF ) ) Arrival Mode Walker Walker Arrival Mode (Other) knee walker Transfer Assistance None Patient Identification Verified (Name & Yes Yes ) Patient Requires Transmission-Based No No Precautions Height and Weight Body Mass Index (BMI) 36.5 36.5 BMI Classification Obese Obese Vital Signs Temperature (97.8 F-99.1 F) 98.2 F 98 F Temperature Source Temporal Temporal Pulse Rate (60-100) 100 106 H Pulse Location Monitor Monitor Respiratory Rate (12-18) 18 18 Respiratory rate source Observation Observation Blood Pressure (90/60-120/80) 124/73 H 143/74 H Blood Pressure Mean (mm Hg) 90 97 Source Monitor Monitor History Since Last Visit- (Skip if this is Patient's initial visit) Have you changed medications since your No No last visit? Any new allergies or adverse reactions No No Had a fall/change in ADL's that may No No increase risk of falls Signs or symptoms of abuse and/or No neglect since last visit Have you been in the hospital since your No No last visit? Has dressing in place as prescribed Yes Yes Has compression in place as prescribed N/A N/A Has offloadiing in place as prescribed Yes Yes Experienced any changes in pain level or No No management Pain Scale: 0-10 Numeric Is Patient Pain Free? Yes Yes - Nurse 1 - General Ulcer Measurement Start: 10/22/21 14:29 Freq: Status: Active Protocol: Activity Type Activity Date Activity User E-Sign Co-Sign Detail Recorded Client Recorded Date Recorded By Document 10/22/21 14:30 DL [id number] 10/22/21 14:39 DL Document 11/05/21 14:40 DL [id number] 11/05/21 14:45 DL 10/22/21 11/05/21 14:30 14:40 Wound Center Nurse 1 10-left medial buttucks -Current Size (cm) - Length 0.5 -Current Size (cm) - Width 0.4 -Current Size (cm) - Depth 0.2 -Total Square Cm 0.20 -Photo Taken No -Exudate Amt Small -Exudate Type Serosanguineous -Wound Margin Distinct, Outline Attached -Granulation Amt None Present (0 %) -Necrosis Amt Small (1-33%) -Necrotic Tissue Type Adherent Slough -Structure Exposed N/A -Texture (Love-wound Skin Appearance) Scarring -Moisture (Love-wound Skin Appearance) No Abnormality -Color (Love-wound Skin Appearance) Not Assessed -Temperature (Love-wound Skin No Abnormality Appearance) (Pt Warm) -Tenderness on Palpation (Love-wound No Skin Appearance) -Ulcer Cleansing Rinsed/ Irrigated with Saline -Foul Odor after Cleansing No -Anesthetic Used 5% Lidocaine Gel #9 Right BKA POST OP -Current Size (cm) - Length 0.2 0.1 -Current Size (cm) - Width 0.1 0.1 -Current Size (cm) - Depth 0.1 0.1 -Total Square Cm 0.02 0.01 -Photo Taken Yes No -Exudate Amt None Present None Present -Wound Margin Flat & Intact Flat & Intact -Granulation Amt Large (67-100%) Large (67-100%) -Granulation Quality [place] -Necrosis Amt Small (1-33%) None Present (0 %) -Necrotic Tissue Type Adherent Slough -Structure Exposed N/A N/A -Texture (Love-wound Skin Appearance) Scarring Scarring -Moisture (Love-wound Skin Appearance) No Abnormality No Abnormality -Color (Love-wound Skin Appearance) No Abnormality No Abnormality -Temperature (Love-wound Skin No Abnormality No Abnormality Appearance) (Pt Warm) (Pt Warm) -Tenderness on Palpation (Love-wound No Yes Skin Appearance) -Ulcer Cleansing Rinsed/ Rinsed/ Irrigated with Irrigated with Saline Saline -Foul Odor after Cleansing No No -Anesthetic Used 4% Lidocaine 5% Lidocaine Solution Gel WC - Nurse 2 - General Ulcer CM Notes Start: 10/22/21 14:29 Freq: Status: Active Protocol: Activity Type Activity Date Activity User E-Sign Co-Sign Detail Recorded Client Recorded Date Recorded By Document 10/22/21 14:41 [id number] 10/22/21 14:50 Document 11/05/21 15:01 [id number] 11/05/21 15:09 10/22/21 11/05/21 14:41 15:01 Wound Center Nurse 2 10-left medial buttucks -Time 14:43 15:02 -Correct Patient Yes Yes -Correct Side, Site, Position Yes Yes -Correct Procedure Yes Yes -Procedure Performed Yes Yes -Type of Procedure Debridement Debridement -Clinical Debridement Subcutaneous Subcutaneous -Tissue Removed Subcutaneous Subcutaneous -Post Debridement (cm) - Length 0.3 0.5 -Post Debridement (cm) - Width 0.3 0.7 -Post Debridement (cm) - Depth 0.1 0.2 -Total Square (Post) (cm) 0.09 0.35 -Area of Debridement (cm) - Length 0.3 0.5 -Area of Debridement (cm) - Width 0.3 0.7 -Total Square (Area) (cm) 0.09 0.35 -Tunneling No No -Undermining/Tunneling No No -Circular Undermining No No -Wound/Ulcer Outcome Not Healed Not Healed -Ulcer Cleansing Rinsed/ Irrigated with Saline -Foul Odor after Cleansing No -Bioengineered Tissue No No -Bleeding Controlled with Pressure Pressure -Offloading No No -Treatment Response Procedure Procedure Tolerated Well Tolerated Well -Debridement - Subq, 1st 20sq cm No Yes #9 Right BKA POST OP -Time 14:49 15:06 -Correct Patient Yes Yes -Correct Side, Site, Position Yes Yes -Correct Procedure Yes Yes -Procedure Performed Yes Yes -Type of Procedure Debridement Debridement -Clinical Debridement Subcutaneous Subcutaneous -Tissue Removed Subcutaneous Subcutaneous -Post Debridement (cm) - Length 0.2 0.3 -Post Debridement (cm) - Width 0.2 0.2 -Post Debridement (cm) - Depth 0.1 0.1 -Total Square (Post) (cm) 0.04 0.06 -Area of Debridement (cm) - Length 0.2 0.3 -Area of Debridement (cm) - Width 0.2 0.2 -Total Square (Area) (cm) 0.04 0.06 -Tunneling No No -Undermining/Tunneling No No -Circular Undermining No No -Wound/Ulcer Outcome Not Healed Not Healed -Ulcer Cleansing Rinsed/ Rinsed/ Irrigated with Irrigated with Saline Saline -Foul Odor after Cleansing No No -Bioengineered Tissue No No -Bleeding Controlled with Pressure Silver Nitrate -Offloading No Yes -Type of Offloading Knee Walker -Treatment Response Procedure Procedure Tolerated Well Tolerated Well -Debridement - Subq, 1st 20sq cm Yes No Pain Scale: 0-10 Numeric Is Patient Pain Free? Yes Yes - Nurse 3 - General Ulcer D/C NN Start: 10/22/21 14:29 Freq: Status: Active Protocol: Activity Type Activity Date Activity User E-Sign Co-Sign Detail Recorded Client Recorded Date Recorded By Document 10/22/21 14:54 [facility] [id number] 10/22/21 14:55 [facility] Document 11/05/21 15:09 [id number] 11/05/21 15:10 10/22/21 11/05/21 14:54 15:09 Wound Care Nurse 3 10-left medial buttucks -Ulcer Cleansing Rinsed/ Rinsed/ Irrigated with Irrigated with Saline Saline -Foul Odor after Cleansing No No -Primary Dressing Applied Aquacel AG 2x2, Aquacel AG 4x4 Mepilex Border -Primary Dressing Covered/Secured with Dry Gauze, Secured with Tape -Aquacel AG 4x4 1 -Aquacel AG 2x2 1 -Mepilex Border 1 #9 Right BKA POST OP -Ulcer Cleansing Rinsed/ Rinsed/ Irrigated with Irrigated with Saline Saline -Foul Odor after Cleansing No No -Primary Dressing Applied C Hydrogel ($), C Hydrogel ($), Mepilex Border Mepilex Border -Mepilex Border 1 1 Treatment Response Procedure Tolerated Well Pain Scale: 0-10 Numeric Is Patient Pain Free? Yes Yes - Visit Discharge Discharge Condition Stable Stable Ambulatory Status Ambulatory, Wheelchair Walker Transportation Private Auto Medication Reconcilliation completed & Yes provided to patient/care provider Clinical Summary of Care Provided Yes Notes: knee walker Additional Wound Wound debrided: Medial buttock ulcer Laterality: Left Type of Debridement: Excisional debridement Anesthesia Used: 5% Lidocaine Gel Depth: Down to and including healthy tissue and in the subcutaneous layer Percentage of wound debrided: 100 Instrument Used: 3mm curette Tissue Removed: Nonviable tissue and slough 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: CODE(S): T87.89 - Other complications of amputation stump; L97.919 - Non-pressure chronic ulcer of unspecified part of right lower leg with unspecified severity (2) Diabetic ulcer of left buttock: CODE(S): E11.622 - Type 2 diabetes mellitus with other skin ulcer; L98.419 - Non-pressure chronic ulcer of buttock with unspecified severity (3) Tobacco abuse: CODE(S): Z72.0 - Tobacco use (4) DM2 (diabetes mellitus, type 2): CODE(S): E11.9 - Type 2 diabetes mellitus without complications QUALIFIERS: Diabetes mellitus complication detail: with other skin complication Diabetes mellitus alf insulin use: with exterminator use (5) Debility: CODE(S): R53.81 - Other malaise PLAN: She was approved for Epifix and Epicord. 4 applications of Epicord and 4 applications of Epifix (8 applications total of advanced wound product). Wound care - Right BKA stump ulcer collagen hydrogel topped with mepilex every other day. May wash ulcer daily with soap and ulcer at the time of dressing change. JOSE D wrap for compression. Left medial buttock ulcer - Aquacel-Ag covered with mepilex every other day. Discussed that she needs to stop smoking and get her HgbA1C below 8 before she is able to have a bone graft to the hole in her right BKA bone. HgbA1c 8.1 on 04/25/21. She is due to have her HgbA1c rechecked but she keeps forgetting to go have it drawn. Encouraged increased protein intake and Vitamin C intake. Encouraged patient to stop smoking as it may have deleterious effects on wound healing. She will follow up in 2 weeks.
== END 2021-11-05 23:59 ==
LOC: WC 14:30
PROVIDERS: Family Provider Internal Medicine; PCP Internal Medicine; Referring Provider Surgery; Visit Provider Nurse Practitioner Family
DX: E11.622 Type 2 diabetes mellitus with other skin ulcer (principal); T87.89 Other complications of amputation stump; L97.812 Non-pressure chronic ulcer of other part of right lower leg with fat layer exposed; L98.492 Non-pressure chronic ulcer of skin of other sites with fat layer exposed; Z74.09 Other reduced mobility; L90.5 Scar conditions and fibrosis of skin; R53.81 Other malaise; Z72.0 Tobacco use; Y83.8 Other surgical procedures as the cause of abnormal reaction of the patient, or of later complication, without mention of misadventure at the time of the procedure
CPT/HCPCS: 11042

== ENCOUNTER 2021-11-26 13:00 | Outpatient (RCR) | payer MEDICARE, MEDICAID, SELFPAY ==
[2021-11-06 00:23] VITALS: BP 143/74; PULSE 106; RESP 18; TEMP 36.6; O2SAT 99; BMI 36.5
[2021-11-26 13:06] VITALS: BP 135/77; PULSE 104; TEMP 35.7; BMI 36.5
--- NOTE | 2021-11-26 14:06 | PN.PCM_ITS ---
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 History of Wound: Surgery 01/02/21 - Surgical preparation anterior aspect right BKA stump with incision and drainage and excisional debridement nonhealing painful infected diabetic ulcer (12 cm2) and partial ostectomy tibia for osteomyelitis. Operative tissue cultures positive for Corynebacterium amycolatum, Anaerobic cocci and Fingoldia magna. Operative bone cultures positive for Anaerobic cocci and Fingoldia magna. Pathology of the bone was negative for acute osteomyelitis. She was treated with IV Vanc that was started 01/02/21 and Flagyl. PICC line pulled 01/15/21. Wound care - She was approved for Epicord and Epifix. She has had 4 applications of Epicord and 4 applications of Epifix (8 applications of advanced wound product). Collagen hydrogel covered with Mepilex every other day to the right BKA stump ulcer. Unable to palpate the bone today. JOSE D wrap for compression. For her left medial buttock will place Aquacel-Ag covered with gauze daily. Surgery 12/07/19 - 1. Surgical preparation right BKA stump with incision and drainage and excisional debridement infected hematoma (19.25 cm2). 2. Partial ostectomy tibia for osteomyelitis. Wound cultures obtained on 09/11/20 and were positive for Entercoccus faecalis and Anaerobic cocci. She has been taking Augmentin and a probiotic. Operative bone culture and tissue culture from 12/07/19 showed Staphylococcus aureus. She was treated with Doxycycline. Pathology was negative for osteomyelitis. Pathology from 06/26 was positive for osteomyelitis. Her HgA1c from 12/07/19 was 10.5. Prealbumin from 12/07/19 was 14. Another wound culture was obtained on 02/21/20. It showed Enterococcus faecalis. She was started on Augmentin and has finished them. She had another wound culture on 07/11/20. It showed Anaerococcus prevoti and Anaerobic cocci. She was placed on Augmentin and has finished them. An MRI was done on 10/13/20. It showed subtle area of abnormal signal within the distal tibial stump anteriorly with overlying soft tissue thinning and edema. This may represent early osteomyelitis. I do not see a definite abscess. It may be of benefit to repeat the study with intravenous contrast for further evaluation if clinically indicated. She denies fever today and states her appetite is ok. Progress of Wound: Left buttock ulcer is mildly improved. There is thickened scar tissue surrounding the ulcer but the base is beefy pink. Right BKA stump ulcer is very painful but the bone appears to be covered today. Objective Data Objective Data Vital Signs: Vital Signs Temp Pulse Resp BP Pulse Ox 96.3 F L 104 H 18 135/77 H 99 11/26/21 13:06 11/26/21 13:06 11/06/21 00:23 11/26/21 13:06 11/06/21 00:23 Weight: 203 lb Body Mass Index (BMI) 36.5 Charges/Coding Procedures Integumentary [id number]: [id number] Annalisa subq tissue 20 sq cm/< Physical Exam Const alert and oriented x3 General Appearance: cooperative HEENT normocephalic Resp normal respiratory effort Cardio regular rate Extremity normal capillary refill Skin Wound Narrative: Right BKA stump ulcer is small and pink, unable to palpate bone today. Continues to be very painful. Left buttock ulcer base is beefy pink with thickened scar tissue surrounding the ulcer. Neuro CN's II-XII intact bilaterally Psych Appearance: grossly normal Debridement Note Debridement Note Wound debrided: BKA stump ulcer Laterality: Right Type of Debridement: Excisional debridement Anesthesia Used: 5% Lidocaine Gel Depth: Down to and including healthy tissue and in the subcutaneous layer Instrument Used: - (1mm curette) Tissue Removed: Subcutaneous tissue and slough Severity: Fat Layer Exposed Amount of bleeding with debridement: Mild Bleeding Controlled with: Pressure Patient tolerated procedure: Patient tolerated procedure well Post-Debridement Measurements and Additional Note: Post-Debridement Measurements/Treatment - Nurse 1 - General Ulcer Assessment Start: 11/26/21 13:06 Freq: Status: Active Protocol: SOL.HEMAL Activity Type Activity Date Activity User E-Sign Co-Sign Detail Recorded Client Recorded Date Recorded By Document 11/26/21 13:06 KRISHNA [id number] 11/26/21 13:12 KRISHNA 11/26/21 13:06 - Today's Visit Information Type of service Follow-up Visit (Physician/PRODUCT SAFETY SPECIALIST ) Arrival Mode Walker Patient Identification Verified (Name & Yes ) Height and Weight Body Mass Index (BMI) 36.5 BMI Classification Obese Vital Signs Temperature (97.8 F-99.1 F) 96.3 F L Temperature Source Temporal Pulse Rate (60-100) 104 H Pulse Location Monitor Blood Pressure (90/60-120/80) 135/77 H Blood Pressure Mean (mm Hg) 96 Source Monitor Position Semi-Fowlers Blood Pressure Location Right Arm History Since Last Visit- (Skip if this is Patient's initial visit) Have you changed medications since your No last visit? Any new allergies or adverse reactions No Had a fall/change in ADL's that may No increase risk of falls Signs or symptoms of abuse and/or No neglect since last visit Have you been in the hospital since your No last visit? Has dressing in place as prescribed Yes Has compression in place as prescribed N/A Has offloadiing in place as prescribed N/A Experienced any changes in pain level or No management Pain Scale: 0-10 Numeric Is Patient Pain Free? Yes WC - Nurse 1 - General Ulcer Measurement Start: 11/26/21 13:06 Freq: Status: Active Protocol: Activity Type Activity Date Activity User E-Sign Co-Sign Detail Recorded Client Recorded Date Recorded By Document 11/26/21 13:06 KRISHNA [id number] 11/26/21 13:12 KRISHNA 11/26/21 13:06 Wound Center Nurse 1 10-left medial buttucks -Current Size (cm) - Length 1.4 -Current Size (cm) - Width 0.6 -Current Size (cm) - Depth 0.3 -Total Square Cm 0.84 -Exudate Amt Small -Exudate Type Serosanguineous -Wound Margin Distinct, Outline Attached -Granulation Amt Large (67-100%) -Granulation Quality Red -Texture (Love-wound Skin Appearance) Assessed, Scarring -Moisture (Love-wound Skin Appearance) No Abnormality, Assessed -Color (Love-wound Skin Appearance) No Abnormality, Assessed -Temperature (Love-wound Skin No Abnormality Appearance) (Pt Warm) -Tenderness on Palpation (Love-wound No Skin Appearance) -Ulcer Cleansing Rinsed/ Irrigated with Saline -Foul Odor after Cleansing No -Anesthetic Used 4% Lidocaine Solution,5% Lidocaine Gel #9 Right BKA POST OP -Current Size (cm) - Length 0.5 -Current Size (cm) - Width 0.4 -Current Size (cm) - Depth 0.2 -Total Square Cm 0.20 -Exudate Amt Small -Exudate Type Serosanguineous -Wound Margin Distinct, Outline Attached -Granulation Amt Small (1-33%) -Granulation Quality [place] -Texture (Love-wound Skin Appearance) Assessed, Scarring -Moisture (Love-wound Skin Appearance) Assessed,Dry/ Scaly -Color (Love-wound Skin Appearance) No Abnormality, Assessed -Temperature (Love-wound Skin No Abnormality Appearance) (Pt Warm) -Tenderness on Palpation (Love-wound No Skin Appearance) -Ulcer Cleansing Rinsed/ Irrigated with Saline -Foul Odor after Cleansing No -Anesthetic Used 4% Lidocaine Solution,5% Lidocaine Gel WC - Nurse 2 - General Ulcer CM Notes Start: 11/26/21 13:06 Freq: Status: Active Protocol: Activity Type Activity Date Activity User E-Sign Co-Sign Detail Recorded Client Recorded Date Recorded By Document 11/26/21 13:28 SHAYNA [id number] 11/26/21 13:31 SHAYNA 11/26/21 13:28 Wound Center Nurse 2 10-left medial buttucks -Time 13:28 -Correct Patient Yes -Correct Side, Site, Position Yes -Correct Procedure Yes -Procedure Performed Yes -Type of Procedure Debridement -Clinical Debridement Subcutaneous -Tissue Removed Subcutaneous -Post Debridement (cm) - Length 0.3 -Post Debridement (cm) - Width 1.3 -Post Debridement (cm) - Depth 0.2 -Total Square (Post) (cm) 0.39 -Area of Debridement (cm) - Length 0.3 -Area of Debridement (cm) - Width 1.3 -Total Square (Area) (cm) 0.39 -Tunneling No -Undermining/Tunneling No -Circular Undermining No -Wound/Ulcer Outcome Not Healed -Ulcer Cleansing Rinsed/ Irrigated with Saline -Foul Odor after Cleansing No -Bioengineered Tissue No -Bleeding Controlled with Pressure -Treatment Response Procedure Tolerated Well -Offloading No -Debridement - Subq, 1st 20sq cm Yes #9 Right BKA POST OP -Time 13:29 -Correct Patient Yes -Correct Side, Site, Position Yes -Correct Procedure Yes -Procedure Performed Yes -Type of Procedure Debridement -Clinical Debridement Subcutaneous -Tissue Removed Subcutaneous -Post Debridement (cm) - Length 0.3 -Post Debridement (cm) - Width 0.3 -Post Debridement (cm) - Depth 0.1 -Total Square (Post) (cm) 0.09 -Area of Debridement (cm) - Length 0.3 -Area of Debridement (cm) - Width 0.3 -Total Square (Area) (cm) 0.09 -Tunneling No -Undermining/Tunneling No -Circular Undermining No -Wound/Ulcer Outcome Not Healed -Ulcer Cleansing Rinsed/ Irrigated with Saline -Foul Odor after Cleansing No -Bioengineered Tissue No -Bleeding Controlled with Pressure -Treatment Response Procedure Tolerated Well -Offloading Yes -Type of Offloading Knee Walker -Total Non-Weight Bearing to Right Lower Extremity -Debridement - Subq, 1st 20sq cm Yes Pain Scale: 0-10 Numeric Is Patient Pain Free? Yes - Nurse 3 - General Ulcer D/C NN Start: 11/26/21 13:06 Freq: Status: Active Protocol: Activity Type Activity Date Activity User E-Sign Co-Sign Detail Recorded Client Recorded Date Recorded By Document 11/26/21 13:42 KRISHNA [id number] 11/26/21 13:44 KRISHNA 11/26/21 13:42 Wound Care Nurse 3 10-left medial buttucks -Ulcer Cleansing Rinsed/ Irrigated with Saline -Primary Dressing Applied Aquacel AG 2x2 -Primary Dressing Covered/Secured with Dry Gauze, Secured with Tape -Aquacel AG 2x2 1 #9 Right BKA POST OP -Ulcer Cleansing Rinsed/ Irrigated with Saline -Primary Dressing Applied C Hydrogel ($), Mepilex Border -Mepilex Border 1 Pain Scale: 0-10 Numeric Is Patient Pain Free? Yes - Visit Discharge Discharge Condition Stable Ambulatory Status Walker Transportation Private Auto Accompanied by self Additional Wound Wound debrided: Medial buttock ulcer Laterality: Left Type of Debridement: Excisional debridement Anesthesia Used: 5% Lidocaine Gel Depth: Down to and including healthy tissue and in the subcutaneous layer Percentage of wound debrided: 100 Instrument Used: 3mm curette Tissue Removed: Subcutaneous tissue and slough Severity: Fat Layer Exposed Amount of bleeding with debridement: Mild Bleeding Controlled with: Pressure and Compression and gauze Patient tolerated procedure: Patient tolerated procedure well Assessment/Plan Assessment/Plan 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: CODE(S): T87.89 - Other complications of amputation stump; L97.919 - Non- pressure chronic ulcer of unspecified part of right lower leg with unspecified severity (2) Diabetic ulcer of left buttock: CODE(S): E11.622 - Type 2 diabetes mellitus with other skin ulcer; L98.419 - Non-pressure chronic ulcer of buttock with unspecified severity (3) Tobacco abuse: CODE(S): Z72.0 - Tobacco use (4) 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: CODE(S): T87.89 - Other complications of amputation stump; M79.604 - Pain in right leg (5) DM2 (diabetes mellitus, type 2): CODE(S): E11.9 - Type 2 diabetes mellitus without complications QUALIFIERS: Diabetes mellitus complication detail: with other skin complication Diabetes mellitus computer terminal operator insulin use: with computer terminal operator use PLAN: She was approved for Epifix and Epicord. 4 applications of Epicord and 4 applications of Epifix (8 applications total of advanced wound product). Wound care - Right BKA stump ulcer collagen hydrogel topped with mepilex every other day. May wash ulcer daily with soap and ulcer at the time of dressing change. JOSE D wrap for compression. Left medial buttock ulcer - Aquacel-Ag covered with gauze daily. Discussed that she needs to stop smoking and get her HgbA1C below 8 before she is able to have a bone graft to the hole in her right BKA bone. HgbA1c 8.1 on 04/25/21. She is due to have her HgbA1c rechecked but she keeps forgetting to go have it drawn. Encouraged increased protein intake and Vitamin C intake. Encouraged patient to stop smoking as it may have deleterious effects on wound healing. She will follow up in 2 weeks.
== END 2021-12-06 23:59 | disposition home or self-care (01) ==
LOC: WC 13:00
PROVIDERS: Family Provider Internal Medicine; PCP Internal Medicine; Referring Provider Surgery; Visit Provider Nurse Practitioner Family
DX: E11.622 Type 2 diabetes mellitus with other skin ulcer (principal); T87.43 Infection of amputation stump, right lower extremity; T87.89 Other complications of amputation stump; L97.812 Non-pressure chronic ulcer of other part of right lower leg with fat layer exposed; L98.412 Non-pressure chronic ulcer of buttock with fat layer exposed; Z72.0 Tobacco use; Y83.5 Amputation of limb(s) as the cause of abnormal reaction of the patient, or of later complication, without mention of misadventure at the time of the procedure
CPT/HCPCS: 11042

== ENCOUNTER 2021-12-31 14:15 | Outpatient (RCR) | payer MEDICARE, MEDICAID, SELFPAY ==
[2021-12-07 00:24] VITALS: BP 135/77; PULSE 104; RESP 18; TEMP 35.7; O2SAT 99; BMI 36.5
[2021-12-10 13:18] VITALS: BP 137/74; PULSE 105; RESP 18; TEMP 36.1; BMI 36.5
--- NOTE | 2021-12-10 15:30 | PCM.WC.PN ---
History of Present Illness Date of Service: 12/10/21 Chief Complaint: Nohealing infected diabetic ulcer anterior aspect right BKA stump and left buttock ulcer. History of Wound: Surgery 01/02/21 - Surgical preparation anterior aspect right BKA stump with incision and drainage and excisional debridement nonhealing painful infected diabetic ulcer (12 cm2) and partial ostectomy tibia for osteomyelitis. Operative tissue cultures positive for Corynebacterium amycolatum, Anaerobic cocci and Fingoldia magna. Operative bone cultures positive for Anaerobic cocci and Fingoldia magna. Pathology of the bone was negative for acute osteomyelitis. She was treated with IV Vanc that was started 01/02/21 and Flagyl. PICC line pulled 01/15/21. Wound care - She was approved for Epicord and Epifix. She has had 4 applications of Epicord and 4 applications of Epifix (8 applications of advanced wound product). Collagen hydrogel covered with Mepilex every other day to the right BKA stump ulcer. Unable to palpate the bone today. JOSE D wrap for compression. For her left medial buttock will place Aquacel-Ag covered with gauze daily. Surgery 12/07/19 - 1. Surgical preparation right BKA stump with incision and drainage and excisional debridement infected hematoma (19.25 cm2). 2. Partial ostectomy tibia for osteomyelitis. Wound cultures obtained on 09/11/20 and were positive for Entercoccus faecalis and Anaerobic cocci. She has been taking Augmentin and a probiotic. Operative bone culture and tissue culture from 12/07/19 showed Staphylococcus aureus. She was treated with Doxycycline. Pathology was negative for osteomyelitis. Pathology from 06/26 was positive for osteomyelitis. Her HgA1c from 12/07/19 was 10.5. Prealbumin from 12/07/19 was 14. Another wound culture was obtained on 02/21/20. It showed Enterococcus faecalis. She was started on Augmentin and has finished them. She had another wound culture on 07/11/20. It showed Anaerococcus prevoti and Anaerobic cocci. She was placed on Augmentin and has finished them. An MRI was done on 10/13/20. It showed subtle area of abnormal signal within the distal tibial stump anteriorly with overlying soft tissue thinning and edema. This may represent early osteomyelitis. I do not see a definite abscess. It may be of benefit to repeat the study with intravenous contrast for further evaluation if clinically indicated. She denies fever today and states her appetite is ok. Progress of Wound: Left buttock ulcer base is pink with some thickened scar tissue surrounding the ulcer. The right BKA stump ulcer is smaller with scant amount of bone exposed. Objective Data Objective Data Vital Signs: Vital Signs Temp Pulse Resp BP Pulse Ox 96.9 F L 105 H 18 137/74 H 99 12/10/21 13:18 12/10/21 13:18 12/10/21 13:18 12/10/21 13:18 12/07/21 00:24 Weight: 203 lb Body Mass Index (BMI) 36.5 Charges/Coding Procedures Integumentary [id number]: [id number] Annalisa subq tissue 20 sq cm/< Physical Exam Const alert and oriented x3 General Appearance: cooperative HEENT normocephalic Resp normal respiratory effort Cardio regular rate Extremity normal capillary refill Skin Wound Narrative: Left buttock ulcer base is pink with some thickened scar tissue surrounding the ulcer. The right BKA stump ulcer is smaller with scant amount of bone exposed. Neuro CN's II-XII intact bilaterally Psych Appearance: well kempt Debridement Note Debridement Note Wound debrided: BKA stump ulcer Laterality: Right Anesthesia Used: 5% Lidocaine Gel Depth: Down to and including healthy tissue and in the subcutaneous layer Percentage of wound debrided: 100 Instrument Used: - (1 mm curette) Tissue Removed: Non-viable tissue and slough Severity: Fat Layer Exposed Amount of bleeding with debridement: Mild Bleeding Controlled with: Pressure Patient tolerated procedure: Patient tolerated procedure well Post-Debridement Measurements and Additional Note: Post-Debridement Measurements/Treatment - Nurse 1 - General Ulcer Assessment Start: 12/10/21 13:16 Freq: Status: Active Protocol: WC.LOWEXT Activity Type Activity Date Activity User E-Sign Co-Sign Detail Recorded Client Recorded Date Recorded By Document 12/10/21 13:18 DL [id number] 12/10/21 13:22 DL 12/10/21 13:18 - Today's Visit Information Type of service Follow-up Visit (Physician/JTAC ) Arrival Mode Ambulatory, Walker Transfer Assistance None Patient Identification Verified (Name & Yes ) Patient Requires Transmission-Based No Precautions Height and Weight Body Mass Index (BMI) 36.5 BMI Classification Obese Vital Signs Temperature (97.8 F-99.1 F) 96.9 F L Temperature Source Temporal Pulse Rate (60-100) 105 H Pulse Location Monitor Respiratory Rate (12-18) 18 Respiratory rate source Observation Blood Pressure (90/60-120/80) 137/74 H Blood Pressure Mean (mm Hg) 95 History Since Last Visit- (Skip if this is Patient's initial visit) Have you changed medications since your No last visit? Any new allergies or adverse reactions No Had a fall/change in ADL's that may No increase risk of falls Signs or symptoms of abuse and/or No neglect since last visit Have you been in the hospital since your No last visit? Has dressing in place as prescribed Yes Has compression in place as prescribed N/A Has offloadiing in place as prescribed Yes Experienced any changes in pain level or No management Pain Scale: 0-10 Numeric Is Patient Pain Free? Yes WC - Nurse 1 - General Ulcer Measurement Start: 12/10/21 13:16 Freq: Status: Active Protocol: Activity Type Activity Date Activity User E-Sign Co-Sign Detail Recorded Client Recorded Date Recorded By Document 12/10/21 13:18 DL [id number] 12/10/21 13:22 DL 12/10/21 13:18 Wound Center Nurse 1 10-left medial buttucks -Current Size (cm) - Length 1.1 -Current Size (cm) - Width 0.2 -Current Size (cm) - Depth 0.1 -Total Square Cm 0.22 -Photo Taken No -Exudate Amt Small -Exudate Type Serosanguineous -Wound Margin Thickened -Granulation Amt Small (1-33%) -Granulation Quality [place] -Necrosis Amt Small (1-33%) -Necrotic Tissue Type Adherent Slough -Structure Exposed None/Limited to Skin Breakdown -Texture (Love-wound Skin Appearance) Localized Edema -Moisture (Love-wound Skin Appearance) No Abnormality -Color (Love-wound Skin Appearance) No Abnormality -Tenderness on Palpation (Love-wound No Skin Appearance) -Ulcer Cleansing Rinsed/ Irrigated with Saline -Foul Odor after Cleansing No -Anesthetic Used 4% Lidocaine Solution #9 Right BKA POST OP -Current Size (cm) - Length 0.5 -Current Size (cm) - Width 0.4 -Current Size (cm) - Depth 0.1 -Total Square Cm 0.20 -Photo Taken No -Exudate Amt None Present -Wound Margin Thickened -Granulation Amt Small (1-33%) -Granulation Quality [place] -Necrosis Amt Small (1-33%) -Necrotic Tissue Type Adherent Slough -Structure Exposed N/A -Texture (Love-wound Skin Appearance) Scarring -Moisture (Love-wound Skin Appearance) No Abnormality -Color (Love-wound Skin Appearance) No Abnormality -Temperature (Love-wound Skin No Abnormality Appearance) (Pt Warm) -Tenderness on Palpation (Love-wound No Skin Appearance) -Ulcer Cleansing Rinsed/ Irrigated with Saline -Foul Odor after Cleansing No -Anesthetic Used 4% Lidocaine Solution,5% Lidocaine Gel WC - Nurse 2 - General Ulcer CM Notes Start: 12/10/21 13:16 Freq: Status: Active Protocol: Activity Type Activity Date Activity User E-Sign Co-Sign Detail Recorded Client Recorded Date Recorded By Document 12/10/21 13:47 SHAYNA [id number] 12/10/21 13:52 SHAYNA 12/10/21 13:47 Wound Center Nurse 2 10-left medial buttucks -Time 13:48 -Correct Patient Yes -Correct Side, Site, Position Yes -Correct Procedure Yes -Procedure Performed Yes -Type of Procedure Debridement -Clinical Debridement Subcutaneous -Tissue Removed Subcutaneous -Post Debridement (cm) - Length 1.5 -Post Debridement (cm) - Width 0.4 -Post Debridement (cm) - Depth 0.2 -Total Square (Post) (cm) 0.60 -Area of Debridement (cm) - Length 1.5 -Area of Debridement (cm) - Width 0.4 -Total Square (Area) (cm) 0.60 -Tunneling No -Undermining/Tunneling No -Circular Undermining No -Wound/Ulcer Outcome Not Healed -Ulcer Cleansing Rinsed/ Irrigated with Saline -Foul Odor after Cleansing No -Bioengineered Tissue No -Bleeding Controlled with Pressure -Treatment Response Procedure Tolerated Well -Offloading No -Debridement - Subq, 1st 20sq cm Yes #9 Right BKA POST OP -Time 13:50 -Correct Patient Yes -Correct Side, Site, Position Yes -Correct Procedure Yes -Procedure Performed Yes -Type of Procedure Debridement -Clinical Debridement Subcutaneous -Tissue Removed Subcutaneous -Post Debridement (cm) - Length 0.3 -Post Debridement (cm) - Width 0.2 -Post Debridement (cm) - Depth 0.1 -Total Square (Post) (cm) 0.06 -Area of Debridement (cm) - Length 0.3 -Area of Debridement (cm) - Width 0.2 -Total Square (Area) (cm) 0.06 -Tunneling No -Undermining/Tunneling No -Circular Undermining No -Wound/Ulcer Outcome Not Healed -Ulcer Cleansing Rinsed/ Irrigated with Saline -Foul Odor after Cleansing No -Bioengineered Tissue No -Bleeding Controlled with Pressure -Treatment Response Procedure Tolerated Well -Offloading Yes -Type of Offloading Knee Walker -Debridement - Subq, 1st 20sq cm No Pain Scale: 0-10 Numeric Is Patient Pain Free? Yes - Nurse 3 - General Ulcer D/C NN Start: 12/10/21 13:16 Freq: Status: Active Protocol: Activity Type Activity Date Activity User E-Sign Co-Sign Detail Recorded Client Recorded Date Recorded By Document 12/10/21 14:03 [facility] [id number] 12/10/21 14:05 [facility] 12/10/21 14:03 Wound Care Nurse 3 10-left medial buttucks -Ulcer Cleansing Rinsed/ Irrigated with Saline -Foul Odor after Cleansing No -Primary Dressing Applied Aquacel AG 2x2, Mepilex Border -Other Dressing drsg per kr ribbon blockmaker -Aquacel AG 2x2 1 -Mepilex Border 1 #9 Right BKA POST OP -Ulcer Cleansing Rinsed/ Irrigated with Saline -Foul Odor after Cleansing No -Primary Dressing Applied C Hydrogel ($), Mepilex Border -Other Dressing drsg per kr ribbon blockmaker -Mepilex Border 1 Treatment Response Procedure Tolerated Well Pain Scale: 0-10 Numeric Is Patient Pain Free? Yes - Visit Discharge Discharge Condition Stable Ambulatory Status Ambulatory, Walker Transportation Private Auto Accompanied by knee walker Facility Type Home Health Additional Wound Wound debrided: medial buttock ulcer Laterality: Left Type of Debridement: Excisional debridement Anesthesia Used: 5% Lidocaine Gel Depth: Down to and including healthy tissue and in the subcutaneous layer Percentage of wound debrided: 100 Instrument Used: 3mm curette Tissue Removed: Non viable tissue and slough 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: CODE(S): T87.89 - Other complications of amputation stump; L97.919 - Non-pressure chronic ulcer of unspecified part of right lower leg with unspecified severity (2) Diabetic ulcer of left buttock: CODE(S): E11.622 - Type 2 diabetes mellitus with other skin ulcer; L98.419 - Non-pressure chronic ulcer of buttock with unspecified severity (3) Impaired physical mobility: CODE(S): Z74.09 - Other reduced mobility (4) Debility: CODE(S): R53.81 - Other malaise (5) History of osteomyelitis: CODE(S): Z87.39 - Personal history of other diseases of the musculoskeletal system and connective tissue (6) Tobacco abuse: CODE(S): Z72.0 - Tobacco use (7) DM2 (diabetes mellitus, type 2): CODE(S): E11.9 - Type 2 diabetes mellitus without complications QUALIFIERS: Diabetes mellitus complication detail: with other skin complication Diabetes mellitus long chain quiller tender insulin use: with long-term use PLAN: She was approved for Epifix and Epicord. 4 applications of Epicord and 4 applications of Epifix (8 applications total of advanced wound product). Wound care - Right BKA stump ulcer collagen hydrogel topped with mepilex every other day. May wash ulcer with soap and water at the time of dressing change. JOSE D wrap for compression. Left medial buttock ulcer - Aquacel-Ag covered with gauze daily and as needed. HgbA1c 9.3 on 10/25/21. Her HbgA1c needs to be below 8 to have a bone graft in the future. Encouraged increased protein intake and Vitamin C intake. Encouraged patient to stop smoking as it may have deleterious effects on wound healing. She will follow up in 2 weeks.
[2021-12-31 14:28] VITALS: BP 134/79; PULSE 105; TEMP 35.9; BMI 36.5
--- NOTE | 2021-12-31 15:32 | PN.PCM_ITS ---
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 History of Wound: Surgery 01/02/21 - Surgical preparation anterior aspect right BKA stump with incision and drainage and excisional debridement nonhealing painful infected diabetic ulcer (12 cm2) and partial ostectomy tibia for osteomyelitis. Operative tissue cultures positive for Corynebacterium amycolatum, Anaerobic cocci and Fingoldia magna. Operative bone cultures positive for Anaerobic cocci and Fingoldia magna. Pathology of the bone was negative for acute osteomyelitis. She was treated with IV Vanc that was started 01/02/21 and Flagyl. PICC line pulled 01/15/21. Wound care - She was approved for Epicord and Epifix. She has had 4 applications of Epicord and 4 applications of Epifix (8 applications of advanced wound product). Collagen hydrogel covered with Mepilex every other day to the right BKA stump ulcer. JOSE D wrap for compression. For her left medial buttock will place Aquacel-Ag covered with gauze daily and as needed. Surgery 12/07/19 - 1. Surgical preparation right BKA stump with incision and drainage and excisional debridement infected hematoma (19.25 cm2). 2. Partial ostectomy tibia for osteomyelitis. Wound cultures obtained on 09/11/20 and were positive for Entercoccus faecalis and Anaerobic cocci. She has been taking Augmentin and a probiotic. Operative bone culture and tissue culture from 12/07/19 showed Staphylococcus aureus. She was treated with Doxycycline. Pathology was negative for osteomyelitis. Pathology from 06/26 was positive for osteomyelitis. Her HgA1c from 12/07/19 was 10.5. Prealbumin from 12/07/19 was 14. Another wound culture was obtained on 02/21/20. It showed Enterococcus faecalis. She was started on Augmentin and has finished them. She had another wound culture on 07/11/20. It showed Anaerococcus prevoti and Anaerobic cocci. She was placed on Augmentin and has finished them. An MRI was done on 10/13/20. It showed subtle area of abnormal signal within the distal tibial stump anteriorly with overlying soft tissue thinning and edema. This may represent early osteomyelitis. I do not see a definite abscess. It may be of benefit to repeat the study with intravenous contrast for further evaluation if clinically indicated. She denies fever today and states her appetite is ok. Progress of Wound: Left buttock ulcer base is pink with some thickened scar tissue surrounding the ulcer. The right BKA stump ulcer is smaller. Unable to palpate bone. Objective Data Objective Data Vital Signs: Vital Signs Temp Pulse Resp BP Pulse Ox 96.7 F L 105 H 18 134/79 H 99 12/31/21 14:28 12/31/21 14:28 12/10/21 13:18 12/31/21 14:28 12/07/21 00:24 Weight: 203 lb Body Mass Index (BMI) 36.5 Charges/Coding Procedures Integumentary 111xxx-113xx: [id number] Annalisa subq tissue 20 sq cm/< Physical Exam Const alert and oriented x3 General Appearance: cooperative HEENT normocephalic Resp normal respiratory effort Extremity normal capillary refill Skin Wound Narrative: Right BKA stump ulcer is slightly improved. Right buttocks ulcer is stable, has thickened scar tissue surrounding it. Neuro CN's II-XII intact bilaterally Psych Appearance: grossly normal Debridement Note Debridement Note Wound debrided: BKA stump ulcer Laterality: Right Type of Debridement: Excisional debridement Anesthesia Used: 4% Lidocaine Solution and 5% Lidocaine Gel Depth: Down to and including healthy tissue and in the subcutaneous layer Percentage of wound debrided: 100 Instrument Used: - (1 mm curette) Tissue Removed: non viable tissue and slough Severity: Fat Layer Exposed Amount of bleeding with debridement: Mild Bleeding Controlled with: Pressure Patient tolerated procedure: Patient tolerated procedure well Post-Debridement Measurements and Additional Note: Post-Debridement Measurements/Treatment - Nurse 1 - General Ulcer Assessment Start: 12/10/21 13:16 Freq: Status: Active Protocol: SOL.[place]RONALD Activity Type Activity Date Activity User E-Sign Co-Sign Detail Recorded Client Recorded Date Recorded By Document 12/10/21 13:18 DL [id number] 12/10/21 13:22 DL Document 12/31/21 14:28 KR [id number] 12/31/21 14:30 KR 12/10/21 12/31/21 13:18 14:28 - Today's Visit Information Type of service Follow-up Visit Follow-up Visit (Physician/DIRECTOR AGRICULTURAL SERVICES (Physician/DIRECTOR AGRICULTURAL SERVICES ) ) Arrival Mode Ambulatory, Ambulatory, Walker Walker Transfer Assistance None Patient Identification Verified (Name & Yes Yes ) Patient Requires Transmission-Based No Precautions Height and Weight Body Mass Index (BMI) 36.5 36.5 BMI Classification Obese Obese Vital Signs Temperature (97.8 F-99.1 F) 96.9 F L 96.7 F L Temperature Source Temporal Temporal Pulse Rate (60-100) 105 H 105 H Pulse Location Monitor Monitor Respiratory Rate (12-18) 18 Respiratory rate source Observation Blood Pressure (90/60-120/80) 137/74 H 134/79 H Blood Pressure Mean (mm Hg) 95 97 Source Monitor Position Sitting Blood Pressure Location Left Arm History Since Last Visit- (Skip if this is Patient's initial visit) Have you changed medications since your No No last visit? Any new allergies or adverse reactions No No Had a fall/change in ADL's that may No No increase risk of falls Signs or symptoms of abuse and/or No No neglect since last visit Have you been in the hospital since your No No last visit? Has dressing in place as prescribed Yes Yes Has compression in place as prescribed N/A N/A Has offloadiing in place as prescribed Yes N/A Experienced any changes in pain level or No No management Pain Scale: 0-10 Numeric Is Patient Pain Free? Yes Yes WC - Nurse 1 - General Ulcer Measurement Start: 12/10/21 13:16 Freq: Status: Active Protocol: Activity Type Activity Date Activity User E-Sign Co-Sign Detail Recorded Client Recorded Date Recorded By Document 12/10/21 13:18 DL [id number] 12/10/21 13:22 DL Document 12/31/21 14:28 KR [id number] 12/31/21 14:30 KR 12/10/21 12/31/21 13:18 14:28 Wound Center Nurse 1 10-left medial buttucks -Current Size (cm) - Length 1.1 1.2 -Current Size (cm) - Width 0.2 0.2 -Current Size (cm) - Depth 0.1 0.2 -Total Square Cm 0.22 0.24 -Photo Taken No -Exudate Amt Small Small -Exudate Type Serosanguineous Serosanguineous -Wound Margin Thickened Distinct, Outline Attached -Granulation Amt Small (1-33%) Small (1-33%) -Granulation Quality [place] -Necrosis Amt Small (1-33%) None Present (0 %) -Necrotic Tissue Type Adherent Slough -Structure Exposed None/Limited to Skin Breakdown -Texture (Love-wound Skin Appearance) Localized Edema Assessed, Scarring -Moisture (Love-wound Skin Appearance) No Abnormality No Abnormality, Assessed -Color (Love-wound Skin Appearance) No Abnormality No Abnormality, Assessed -Temperature (Love-wound Skin No Abnormality Appearance) (Pt Warm) -Tenderness on Palpation (Love-wound No No Skin Appearance) -Ulcer Cleansing Rinsed/ Rinsed/ Irrigated with Irrigated with Saline Saline -Foul Odor after Cleansing No No -Anesthetic Used 4% Lidocaine 4% Lidocaine Solution Solution,5% Lidocaine Gel #9 Right BKA POST OP -Current Size (cm) - Length 0.5 0.2 -Current Size (cm) - Width 0.4 0.2 -Current Size (cm) - Depth 0.1 0.1 -Total Square Cm 0.20 0.04 -Photo Taken No -Exudate Amt None Present Small -Exudate Type Serosanguineous -Wound Margin Thickened Distinct, Outline Attached -Granulation Amt Small (1-33%) Small (1-33%) -Granulation Quality [place] -Necrosis Amt Small (1-33%) None Present (0 %) -Necrotic Tissue Type Adherent Slough -Structure Exposed N/A -Texture (Love-wound Skin Appearance) Scarring Assessed, Scarring -Moisture (Love-wound Skin Appearance) No Abnormality No Abnormality, Assessed -Color (Love-wound Skin Appearance) No Abnormality No Abnormality, Assessed -Temperature (Love-wound Skin No Abnormality No Abnormality Appearance) (Pt Warm) (Pt Warm) -Tenderness on Palpation (Love-wound No No Skin Appearance) -Ulcer Cleansing Rinsed/ Rinsed/ Irrigated with Irrigated with Saline Saline -Foul Odor after Cleansing No No -Anesthetic Used 4% Lidocaine 4% Lidocaine Solution,5% Solution,5% Lidocaine Gel Lidocaine Gel WC - Nurse 2 - General Ulcer CM Notes Start: 12/10/21 13:16 Freq: Status: Active Protocol: Activity Type Activity Date Activity User E-Sign Co-Sign Detail Recorded Client Recorded Date Recorded By Document 12/10/21 13:47 [id number] 12/10/21 13:52 Document 12/31/21 14:41 [id number] 12/31/21 14:45 12/10/21 12/31/21 13:47 14:41 Wound Center Nurse 2 10-left medial buttucks -Time 13:48 14:43 -Correct Patient Yes Yes -Correct Side, Site, Position Yes Yes -Correct Procedure Yes Yes -Procedure Performed Yes Yes -Type of Procedure Debridement Debridement -Clinical Debridement Subcutaneous Subcutaneous -Tissue Removed Subcutaneous Subcutaneous -Post Debridement (cm) - Length 1.5 0.7 -Post Debridement (cm) - Width 0.4 1.8 -Post Debridement (cm) - Depth 0.2 0.3 -Total Square (Post) (cm) 0.60 1.26 -Area of Debridement (cm) - Length 1.5 0.7 -Area of Debridement (cm) - Width 0.4 1.8 -Total Square (Area) (cm) 0.60 1.26 -Tunneling No No -Undermining/Tunneling No No -Circular Undermining No No -Wound/Ulcer Outcome Not Healed Not Healed -Ulcer Cleansing Rinsed/ Rinsed/ Irrigated with Irrigated with Saline Saline -Foul Odor after Cleansing No No -Bioengineered Tissue No No -Bleeding Controlled with Pressure Pressure -Treatment Response Procedure Procedure Tolerated Well Tolerated Well -Offloading No No -Debridement - Subq, 1st 20sq cm Yes No #9 Right BKA POST OP -Time 13:50 14:42 -Correct Patient Yes Yes -Correct Side, Site, Position Yes Yes -Correct Procedure Yes Yes -Procedure Performed Yes Yes -Type of Procedure Debridement Debridement -Clinical Debridement Subcutaneous Subcutaneous -Tissue Removed Subcutaneous Subcutaneous -Post Debridement (cm) - Length 0.3 0.3 -Post Debridement (cm) - Width 0.2 0.1 -Post Debridement (cm) - Depth 0.1 0.1 -Total Square (Post) (cm) 0.06 0.03 -Area of Debridement (cm) - Length 0.3 0.3 -Area of Debridement (cm) - Width 0.2 0.1 -Total Square (Area) (cm) 0.06 0.03 -Tunneling No No -Undermining/Tunneling No No -Circular Undermining No No -Wound/Ulcer Outcome Not Healed Not Healed -Ulcer Cleansing Rinsed/ Rinsed/ Irrigated with Irrigated with Saline Saline -Foul Odor after Cleansing No No -Bioengineered Tissue No No -Bleeding Controlled with Pressure Pressure -Treatment Response Procedure Procedure Tolerated Well Tolerated Well -Offloading Yes No -Type of Offloading Knee Walker -Debridement - Subq, 1st 20sq cm No Yes Pain Scale: 0-10 Numeric Is Patient Pain Free? Yes Yes - Nurse 3 - General Ulcer D/C NN Start: 12/10/21 13:16 Freq: Status: Active Protocol: Activity Type Activity Date Activity User E-Sign Co-Sign Detail Recorded Client Recorded Date Recorded By Document 12/10/21 14:03 [facility] [id number] 12/10/21 14:05 [facility] Document 12/31/21 14:56 [facility] [id number] 12/31/21 14:57 BM 12/10/21 12/31/21 14:03 14:56 Wound Care Nurse 3 10-left medial buttucks -Ulcer Cleansing Rinsed/ Rinsed/ Irrigated with Irrigated with Saline Saline -Foul Odor after Cleansing No No -Primary Dressing Applied Aquacel AG 2x2, Aquacel AG 4x4, Mepilex Border Mepilex Border -Other Dressing drsg per kr shot tube machine tender -Other Covering drsg per kr shot tube machine tender -Aquacel AG 4x4 1 -Aquacel AG 2x2 1 -Mepilex Border 1 1 #9 Right BKA POST OP -Ulcer Cleansing Rinsed/ Rinsed/ Irrigated with Irrigated with Saline Saline -Foul Odor after Cleansing No No -Primary Dressing Applied C Hydrogel ($), Mepilex Border, Mepilex Border Other -Other Dressing drsg per kr shot tube machine tender hydrogel -Other Covering drsg per kr shot tube machine tender -Mepilex Border 1 1 Treatment Response Procedure Procedure Tolerated Well Tolerated Well Pain Scale: 0-10 Numeric Is Patient Pain Free? Yes Yes - Visit Discharge Discharge Condition Stable Stable Ambulatory Status Ambulatory, Ambulatory, Walker Walker Transportation Private Auto Private Auto Accompanied by knee walker Facility Type Home Health Additional Wound Wound debrided: buttocks ulcer Laterality: Right Type of Debridement: Excisional debridement Anesthesia Used: 4% Lidocaine Solution and 5% Lidocaine Gel Depth: Down to and including healthy tissue and in the subcutaneous layer Percentage of wound debrided: 100 Instrument Used: 3mm curette Tissue Removed: nonviable tissue and slough Severity: Fat Layer Exposed Amount of bleeding with debridement: Mild Bleeding Controlled with: Pressure Patient tolerated procedure: Patient tolerated procedure well Assessment/Plan Assessment/Plan (1) Ulcer of right leg: CODE(S): L97.919 - Non-pressure chronic ulcer of unspecified part of right lower leg with unspecified severity QUALIFIERS: Non-pressure ulcer stage: with fat layer exposed Qualified Code(s): L97.912 - Non-pressure chronic ulcer of unspecified part of right lower leg with fat layer exposed (2) History of osteomyelitis: CODE(S): Z87.39 - Personal history of other diseases of the musculoskeletal system and connective tissue (3) 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: CODE(S): T87.89 - Other complications of amputation stump; M79.604 - Pain in right leg (4) Diabetic ulcer of left buttock: CODE(S): E11.622 - Type 2 diabetes mellitus with other skin ulcer; L98.419 - Non-pressure chronic ulcer of buttock with unspecified severity (5) Diabetic ulcer of lower extremity: CODE(S): E11.622 - Type 2 diabetes mellitus with other skin ulcer; L97.909 - Non-pressure chronic ulcer of unspecified part of unspecified lower leg with unspecified severity (6) Hemoglobin A1C greater than 9%, indicating poor diabetic control: CODE(S): R73.09 - Other abnormal glucose (7) Impaired physical mobility: CODE(S): Z74.09 - Other reduced mobility (8) DM2 (diabetes mellitus, type 2): CODE(S): E11.9 - Type 2 diabetes mellitus without complications QUALIFIERS: Diabetes mellitus complication detail: with other skin complication Diabetes mellitus rodent exterminator insulin use: with rodent exterminator use PLAN: She was approved for Epifix and Epicord. 4 applications of Epicord and 4 applications of Epifix (8 applications total of advanced wound product). Wound care - Right BKA stump ulcer collagen hydrogel topped with mepilex every other day. May wash ulcer with soap and water at the time of dressing change. JOSE D wrap for compression. Left medial buttock ulcer - Aquacel-Ag covered with gauze daily and as needed. HgbA1c 9.3 on 10/25/21. Her HbgA1c needs to be below 8 to have a bone graft in the future. Encouraged increased protein intake and Vitamin C intake. Encouraged patient to stop smoking as it may have deleterious effects on wound healing. She will follow up in 2 weeks.
== END 2022-01-05 23:59 | disposition home or self-care (01) ==
LOC: WC 14:15
PROVIDERS: Family Provider Internal Medicine; PCP Internal Medicine; Referring Provider Surgery; Visit Provider Nurse Practitioner Family
DX: E11.622 Type 2 diabetes mellitus with other skin ulcer (principal); T87.43 Infection of amputation stump, right lower extremity; T87.89 Other complications of amputation stump; L98.412 Non-pressure chronic ulcer of buttock with fat layer exposed; L97.812 Non-pressure chronic ulcer of other part of right lower leg with fat layer exposed; R53.81 Other malaise; Z72.0 Tobacco use; Z74.09 Other reduced mobility; M79.604 Pain in right leg; Y83.5 Amputation of limb(s) as the cause of abnormal reaction of the patient, or of later complication, without mention of misadventure at the time of the procedure
CPT/HCPCS: 11042

== ENCOUNTER 2022-01-14 13:37 | Outpatient (RCR) | payer MEDICARE, MEDICAID, SELFPAY ==
[2022-01-06 00:24] VITALS: BP 134/79; PULSE 105; RESP 18; TEMP 35.9; O2SAT 99; BMI 36.5
[2022-01-14 13:39] VITALS: BP 140/79; PULSE 100; RESP 16; TEMP 35.7; BMI 36.5
--- NOTE | 2022-01-14 14:53 | PCM.WC.PN ---
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 History of Wound: Surgery 01/02/21 - Surgical preparation anterior aspect right BKA stump with incision and drainage and excisional debridement nonhealing painful infected diabetic ulcer (12 cm2) and partial ostectomy tibia for osteomyelitis. Operative tissue cultures positive for Corynebacterium amycolatum, Anaerobic cocci and Fingoldia magna. Operative bone cultures positive for Anaerobic cocci and Fingoldia magna. Pathology of the bone was negative for acute osteomyelitis. She was treated with IV Vanc that was started 01/02/21 and Flagyl. PICC line pulled 01/15/21. Wound care - She was approved for Epicord and Epifix. She has had 4 applications of Epicord and 4 applications of Epifix (8 applications of advanced wound product). The right BKA stump ulcer is healed today. JOSE D wrap for compression. For her left medial buttock will place Aquacel-Ag covered with gauze daily and as needed. Surgery 12/07/19 - 1. Surgical preparation right BKA stump with incision and drainage and excisional debridement infected hematoma (19.25 cm2). 2. Partial ostectomy tibia for osteomyelitis. Wound cultures obtained on 09/11/20 and were positive for Entercoccus faecalis and Anaerobic cocci. She has been taking Augmentin and a probiotic. Operative bone culture and tissue culture from 12/07/19 showed Staphylococcus aureus. She was treated with Doxycycline. Pathology was negative for osteomyelitis. Pathology from 06/26 was positive for osteomyelitis. Her HgA1c from 12/07/19 was 10.5. Prealbumin from 12/07/19 was 14. Another wound culture was obtained on 02/21/20. It showed Enterococcus faecalis. She was started on Augmentin and has finished them. She had another wound culture on 07/11/20. It showed Anaerococcus prevoti and Anaerobic cocci. She was placed on Augmentin and has finished them. An MRI was done on 10/13/20. It showed subtle area of abnormal signal within the distal tibial stump anteriorly with overlying soft tissue thinning and edema. This may represent early osteomyelitis. I do not see a definite abscess. It may be of benefit to repeat the study with intravenous contrast for further evaluation if clinically indicated. She denies fever today and states her appetite is ok. Progress of Wound: The right BKA stump ulcer is healed today. Her left medial buttock ulcer is smaller in size. Objective Data Objective Data Vital Signs: Vital Signs Temp Pulse Resp BP Pulse Ox 96.2 F L 100 16 140/79 H 99 01/14/22 13:39 01/14/22 13:39 01/14/22 13:39 01/14/22 13:39 01/06/22 00:24 Oxygen Delivery Method Room Air Weight: 203 lb Body Mass Index (BMI) 36.5 Charges/Coding Procedures Integumentary 111xxx-113xx: 47364 Global Visit Physical Exam Const alert and oriented x3 General Appearance: cooperative HEENT normocephalic Resp normal respiratory effort Cardio regular rate Extremity normal capillary refill Skin Wound Narrative: Right BKA stump ulcer is healed today. Left medial buttock ulcer is smaller in size, the base of the ulcer is beefy pink. Love wound is stable. Neuro Sensorium / Orientation: awake and alert Psych Appearance: well kempt Debridement Note Debridement Note Wound debrided: medial buttock ulcer Laterality: Left Type of Debridement: Excisional debridement Anesthesia Used: 5% Lidocaine Gel Depth: Down to and including healthy tissue and in the subcutaneous layer Percentage of wound debrided: 100 Instrument Used: 3mm curette Tissue Removed: Non viable tissue and slough Severity: Fat Layer Exposed Amount of bleeding with debridement: Mild Bleeding Controlled with: Pressure and Compression and gauze Patient tolerated procedure: Patient tolerated procedure well Post-Debridement Measurements and Additional Note: Post-Debridement Measurements/Treatment - Nurse 1 - General Ulcer Assessment Start: 01/14/22 13:39 Freq: Status: Active Protocol: SOL.HEMAL Activity Type Activity Date Activity User E-Sign Co-Sign Detail Recorded Client Recorded Date Recorded By Document 01/14/22 13:39 [facility] [id number] 01/14/22 13:50 [facility] 01/14/22 13:39 - Today's Visit Information Type of service 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 ) Arrival Mode Ambulatory, Walker Arrival Mode (Other) KNEE WALKER Transfer Assistance None Patient Identification Verified (Name & Yes ) Patient Requires Transmission-Based No Precautions Height and Weight Body Mass Index (BMI) 36.5 BMI Classification Obese Vital Signs Temperature (97.8 F-99.1 F) 96.2 F L Temperature Source Temporal Pulse Rate (60-100) 100 Pulse Location Monitor Respiratory Rate (12-18) 16 Respiratory rate source Observation Oxygen Delivery Method Room Air Blood Pressure (90/60-120/80) 140/79 H Blood Pressure Mean (mm Hg) 99 Source Monitor Position Sitting Blood Pressure Location Right Arm History Since Last Visit- (Skip if this is Patient's initial visit) Have you changed medications since your No last visit? Any new allergies or adverse reactions No Had a fall/change in ADL's that may No increase risk of falls Signs or symptoms of abuse and/or No neglect since last visit Have you been in the hospital since your No last visit? Has dressing in place as prescribed Yes Has compression in place as prescribed N/A Has offloadiing in place as prescribed N/A Experienced any changes in pain level or No management Left Footwear Regular Shoe Pain Scale: 0-10 Numeric Is Patient Pain Free? Yes WC - Nurse 1 - General Ulcer Measurement Start: 01/14/22 13:39 Freq: Status: Active Protocol: Activity Type Activity Date Activity User E-Sign Co-Sign Detail Recorded Client Recorded Date Recorded By Document 01/14/22 13:39 [facility] [id number] 01/14/22 13:50 [facility] 01/14/22 13:39 Wound Center Nurse 1 10-left medial buttucks -Combined with other wound No -Current Size (cm) - Length 1.4 -Current Size (cm) - Width 0.3 -Current Size (cm) - Depth 0.2 -Total Square Cm 0.42 -Photo Taken No -Epithelialization None Present -Tunneling No -Undermining/Tunneling No -Circular Undermining No -Exudate Amt Small -Exudate Type Serosanguineous -Wound Margin Distinct, Outline Attached -Granulation Amt Small (1-33%) -Granulation Quality Red -Slough/Fibrin Yes -Necrosis Amt Large (67-100%) -Necrotic Tissue Type Adherent Slough -Texture (Love-wound Skin Appearance) Assessed, Scarring -Moisture (Love-wound Skin Appearance) Assessed -Color (Love-wound Skin Appearance) Assessed -Temperature (Love-wound Skin No Abnormality Appearance) (Pt Warm) -Tenderness on Palpation (Love-wound Yes Skin Appearance) -Ulcer Cleansing Rinsed/ Irrigated with Saline -Foul Odor after Cleansing No -Anesthetic Used 4% Lidocaine Solution #9 Right BKA POST OP -Combined with other wound No -Current Size (cm) - Length 0.1 -Current Size (cm) - Width 0.1 -Current Size (cm) - Depth 0.1 -Total Square Cm 0.01 -Photo Taken No -Epithelialization Large 67-100% -Tunneling No -Undermining/Tunneling No -Circular Undermining No -Exudate Amt Small -Exudate Type Serous -Wound Margin Distinct, Outline Attached -Granulation Amt None Present (0 %) -Slough/Fibrin Yes -Necrosis Amt Small (1-33%) -Necrotic Tissue Type Adherent Slough -Texture (Love-wound Skin Appearance) Assessed, Scarring -Moisture (Love-wound Skin Appearance) Assessed -Color (Love-wound Skin Appearance) Assessed -Temperature (Love-wound Skin No Abnormality Appearance) (Pt Warm) -Tenderness on Palpation (Love-wound Yes Skin Appearance) -Ulcer Cleansing Rinsed/ Irrigated with Saline -Foul Odor after Cleansing No -Anesthetic Used 4% Lidocaine Solution WC - Nurse 2 - General Ulcer CM Notes Start: 01/14/22 13:39 Freq: Status: Active Protocol: Activity Type Activity Date Activity User E-Sign Co-Sign Detail Recorded Client Recorded Date Recorded By Document 01/14/22 14:14 DEYANIRA [id number] 01/14/22 14:16 DEYANIRA 01/14/22 14:14 Wound Center Nurse 2 10-left medial buttucks -Time 14:04 -Correct Patient Yes -Correct Side, Site, Position Yes -Correct Procedure Yes -Procedure Performed Yes -Type of Procedure Debridement -Clinical Debridement Subcutaneous -Tissue Removed Subcutaneous -Post Debridement (cm) - Length 0.5 -Post Debridement (cm) - Width 1.6 -Post Debridement (cm) - Depth 0.2 -Total Square (Post) (cm) 0.80 -Area of Debridement (cm) - Length 0.5 -Area of Debridement (cm) - Width 1.6 -Total Square (Area) (cm) 0.80 -Tunneling No -Undermining/Tunneling No -Circular Undermining No -Wound/Ulcer Outcome Not Healed -Ulcer Cleansing Rinsed/ Irrigated with Saline -Foul Odor after Cleansing No -Bioengineered Tissue No -Bleeding Controlled with Pressure -Treatment Response Procedure Tolerated Well -Debridement - Subq, 1st 20sq cm Yes #9 Right BKA POST OP -Procedure Performed No -Wound/Ulcer Outcome Healed- Epithelialized Pain Scale: 0-10 Numeric Is Patient Pain Free? Yes - Nurse 3 - General Ulcer D/C NN Start: 01/14/22 13:39 Freq: Status: Active Protocol: Activity Type Activity Date Activity User E-Sign Co-Sign Detail Recorded Client Recorded Date Recorded By Document 01/14/22 14:17 MD [id number] 01/14/22 14:18 BURAK 01/14/22 14:17 Wound Care Nurse 3 10-left medial buttucks -Ulcer Cleansing Rinsed/ Irrigated with Saline -Foul Odor after Cleansing No -Negative Pressure Wound Therapy N/A -Primary Dressing Applied Aquacel AG 4x4 -Primary Dressing Covered/Secured with Dry Gauze, Secured with Tape -Aquacel AG 4x4 1 Pain Scale: 0-10 Numeric Is Patient Pain Free? 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: CODE(S): T87.89 - Other complications of amputation stump; L97.919 - Non-pressure chronic ulcer of unspecified part of right lower leg with unspecified severity (2) Diabetic ulcer of left buttock: CODE(S): E11.622 - Type 2 diabetes mellitus with other skin ulcer; L98.419 - Non-pressure chronic ulcer of buttock with unspecified severity (3) Diabetic ulcer of lower extremity: CODE(S): E11.622 - Type 2 diabetes mellitus with other skin ulcer; L97.909 - Non-pressure chronic ulcer of unspecified part of unspecified lower leg with unspecified severity (4) 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: CODE(S): T87.89 - Other complications of amputation stump; M79.604 - Pain in right leg (5) Tobacco abuse: CODE(S): Z72.0 - Tobacco use (6) Hemoglobin A1C greater than 9%, indicating poor diabetic control: CODE(S): R73.09 - Other abnormal glucose (7) History of osteomyelitis: CODE(S): Z87.39 - Personal history of other diseases of the musculoskeletal system and connective tissue PLAN: She was approved for Epifix and Epicord. 4 applications of Epicord and 4 applications of Epifix (8 applications total of advanced wound product). Wound care - Right BKA stump ulcer is healed today. She may cover it with gauze to protect the area until the fragile epithelial tissue toughens. JOSE D wrap or stump online journalist for compression. Left medial buttock ulcer - Aquacel-Ag covered with gauze daily and as needed. HgbA1c 9.3 on 10/25/21. Her HbgA1c needs to be below 8 to have a bone graft in the future. Encouraged increased protein intake and Vitamin C intake. Encouraged patient to stop smoking as it may have deleterious effects on wound healing. She will follow up in 1 week.
== END 2022-02-05 23:59 | disposition home or self-care (01) ==
LOC: WC 13:37
PROVIDERS: Family Provider Internal Medicine; PCP Internal Medicine; Referring Provider Surgery; Visit Provider Nurse Practitioner Family
DX: E11.622 Type 2 diabetes mellitus with other skin ulcer (principal); T87.43 Infection of amputation stump, right lower extremity; T87.89 Other complications of amputation stump; L98.412 Non-pressure chronic ulcer of buttock with fat layer exposed; M79.604 Pain in right leg; R53.81 Other malaise; Y83.5 Amputation of limb(s) as the cause of abnormal reaction of the patient, or of later complication, without mention of misadventure at the time of the procedure
CPT/HCPCS: 11042

== ENCOUNTER 2022-02-18 10:53 | Outpatient (RCR) | payer MEDICARE, MEDICAID, SELFPAY ==
[2022-02-06 00:38] VITALS: BP 140/79; PULSE 100; RESP 16; TEMP 35.7; O2SAT 99; BMI 36.5
[2022-02-18 10:59] VITALS: BP 125/78; PULSE 107; RESP 20; TEMP 36.4; BMI 36.5
--- NOTE | 2022-02-18 12:23 | PN.PCM_ITS ---
History of Present Illness Date of Service: 02/18/22 Chief Complaint: Nohealing infected diabetic ulcer anterior aspect right BKA stump and left buttock ulcer. History of Wound: Surgery 01/02/21 - Surgical preparation anterior aspect right BKA stump with incision and drainage and excisional debridement nonhealing painful infected diabetic ulcer (12 cm2) and partial ostectomy tibia for osteomyelitis. Operative tissue cultures positive for Corynebacterium amycolatum, Anaerobic cocci and Fingoldia magna. Operative bone cultures positive for Anaerobic cocci and Fingoldia magna. Pathology of the bone was negative for acute osteomyelitis. She was treated with IV Vanc that was started 01/02/21 and Flagyl. PICC line pulled 01/15/21. Wound care - She was approved for Epicord and Epifix. She has had 4 applications of Epicord and 4 applications of Epifix (8 applications of advanced wound product). The right BKA stump ulcer remains healed today. JOSE D wrap for compression. For her left medial buttock will place Aquacel-Ag covered with Silicone border dressing (such as [place] SAH) daily and as needed. Surgery 12/07/19 - 1. Surgical preparation right BKA stump with incision and drainage and excisional debridement infected hematoma (19.25 cm2). 2. Partial ostectomy tibia for osteomyelitis. Wound cultures obtained on 09/11/20 and were positive for Entercoccus faecalis and Anaerobic cocci. She has been taking Augmentin and a probiotic. Operative bone culture and tissue culture from 12/07/19 showed Staphylococcus aureus. She was treated with Doxycycline. Pathology was negative for osteomyelitis. Pathology from 06/26 was positive for osteomyelitis. Her HgA1c from 12/07/19 was 10.5. Prealbumin from 12/07/19 was 14. Another wound culture was obtained on 02/21/20. It showed Enterococcus faecalis. She was started on Augmentin and has finished them. She had another wound culture on 07/11/20. It showed Anaerococcus prevoti and Anaerobic cocci. She was placed on Augmentin and has finished them. An MRI was done on 10/13/20. It showed subtle area of abnormal signal within the distal tibial stump anteriorly with overlying soft tissue thinning and edema. This may represent early osteomyelitis. I do not see a definite abscess. It may be of benefit to repeat the study with intravenous contrast for further evaluation if clinically indicated. She denies fever today and states her appetite is ok. Progress of Wound: Right BKA ulcer remains healed. Left buttock ulcer is stable. There continues to be a large amount of scar tissue surrounding the ulcer. The base of the ulcer is pink. Objective Data Objective Data Vital Signs: Vital Signs Temp Pulse Resp BP Pulse Ox 97.5 F L 107 H 20 H 125/78 H 99 02/18/22 10:59 02/18/22 10:59 02/18/22 10:59 02/18/22 10:59 02/06/22 00:38 Weight: 203 lb Body Mass Index (BMI) 36.5 Charges/Coding Procedures Integumentary 111xxx-113xx: 44904 Annalisa subq tissue 20 sq cm/< Physical Exam Const alert and oriented x3 General Appearance: cooperative HEENT normocephalic Resp normal respiratory effort Cardio regular rate Extremity normal capillary refill Skin Wound Narrative: Right BKA stump ulcer remains healed. Left medial buttock ulcer is stable, the base of the ulcer is beefy pink. It continues to be surrounded by scar tissue. Neuro Sensorium / Orientation: awake and alert Psych Appearance: well kempt Debridement Note Debridement Note Wound debrided: medial buttock ulcer Laterality: Left Type of Debridement: Excisional debridement Anesthesia Used: 5% Lidocaine Gel Depth: Down to and including healthy tissue and in the subcutaneous layer Percentage of wound debrided: 100 Instrument Used: 5mm curette Tissue Removed: Non viable tissue and slough Severity: Fat Layer Exposed Amount of bleeding with debridement: Mild Bleeding Controlled with: Pressure Patient tolerated procedure: Patient tolerated procedure well Post-Debridement Measurements and Additional Note: Post-Debridement Measurements/Treatment - Nurse 1 - General Ulcer Assessment Start: 02/18/22 10:57 Freq: Status: Active Protocol: SOL.HEMAL Activity Type Activity Date Activity User E-Sign Co-Sign Detail Recorded Client Recorded Date Recorded By Document 02/18/22 10:59 MARLON [id number] 02/18/22 11:06 MARLON 02/18/22 10:59 - Today's Visit Information Type of service 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 ) Arrival Mode Ambulatory, Walker Transfer Assistance None Patient Identification Verified (Name & Yes ) Patient Requires Transmission-Based No Precautions Finger Stick Blood Sugar(mg/dl) (if not checked indicated): Blood Sugar Stated by Patient Height and Weight Body Mass Index (BMI) 36.5 BMI Classification Obese Vital Signs Temperature (97.8 F-99.1 F) 97.5 F L Temperature Source Temporal Pulse Rate (60-100) 107 H Pulse Location Monitor Respiratory Rate (12-18) 20 H Blood Pressure (90/60-120/80) 125/78 H Blood Pressure Mean (mm Hg) 93 Source Monitor History Since Last Visit- (Skip if this is Patient's initial visit) Have you changed medications since your No last visit? Any new allergies or adverse reactions No Had a fall/change in ADL's that may No increase risk of falls Signs or symptoms of abuse and/or No neglect since last visit Have you been in the hospital since your No last visit? Has dressing in place as prescribed Yes Has compression in place as prescribed N/A Has offloadiing in place as prescribed Yes Experienced any changes in pain level or No management Pain Scale: 0-10 Numeric Is Patient Pain Free? Yes WC - Nurse 1 - General Ulcer Measurement Start: 02/18/22 10:57 Freq: Status: Active Protocol: Activity Type Activity Date Activity User E-Sign Co-Sign Detail Recorded Client Recorded Date Recorded By Document 02/18/22 10:59 DL [id number] 02/18/22 11:06 DL 02/18/22 10:59 Wound Center Nurse 1 10-left medial buttucks -Current Size (cm) - Length 1 -Current Size (cm) - Width 0.5 -Current Size (cm) - Depth 0.3 -Total Square Cm 0.5 -Photo Taken Yes -Exudate Amt Small -Exudate Type Serosanguineous -Wound Margin [place] -Granulation Amt Small (1-33%) -Granulation Quality [place] -Necrosis Amt Small (1-33%) -Necrotic Tissue Type Adherent Slough -Structure Exposed None/Limited to Skin Breakdown -Texture (Love-wound Skin Appearance) Scarring -Moisture (Love-wound Skin Appearance) No Abnormality -Color (Love-wound Skin Appearance) No Abnormality -Temperature (Love-wound Skin No Abnormality Appearance) (Pt Warm) -Tenderness on Palpation (Love-wound No Skin Appearance) -Ulcer Cleansing Rinsed/ Irrigated with Saline -Foul Odor after Cleansing No -Anesthetic Used 5% Lidocaine Gel WC - Nurse 2 - General Ulcer CM Notes Start: 02/18/22 10:57 Freq: Status: Active Protocol: Activity Type Activity Date Activity User E-Sign Co-Sign Detail Recorded Client Recorded Date Recorded By Document 02/18/22 11:20 SHAYNA [id number] 02/18/22 11:21 SHAYNA 02/18/22 11:20 Wound Center Nurse 2 -Time 11:21 -Correct Patient Yes -Correct Side, Site, Position Yes -Correct Procedure Yes -Procedure Performed Yes -Type of Procedure Debridement -Clinical Debridement Subcutaneous -Tissue Removed Subcutaneous -Post Debridement (cm) - Length 1.0 -Post Debridement (cm) - Width 0.6 -Post Debridement (cm) - Depth 0.3 -Total Square (Post) (cm) 0.60 -Area of Debridement (cm) - Length 1.0 -Area of Debridement (cm) - Width 0.6 -Total Square (Area) (cm) 0.60 -Tunneling No -Undermining/Tunneling No -Circular Undermining No -Wound/Ulcer Outcome Not Healed -Ulcer Cleansing Rinsed/ Irrigated with Saline -Foul Odor after Cleansing No -Bioengineered Tissue No -Bleeding Controlled with Pressure -Treatment Response Procedure Tolerated Well -Offloading No -Debridement - Subq, 1st 20sq cm Yes Pain Scale: 0-10 Numeric Is Patient Pain Free? Yes - Nurse 3 - General Ulcer D/C NN Start: 02/18/22 10:57 Freq: Status: Active Protocol: Activity Type Activity Date Activity User E-Sign Co-Sign Detail Recorded Client Recorded Date Recorded By Document 02/18/22 11:28 KRISHNA [id number] 02/18/22 11:28 KRISHNA 02/18/22 11:28 Wound Care Nurse 3 10-left medial buttucks -Ulcer Cleansing Rinsed/ Irrigated with Saline -Primary Dressing Applied Aquacel AG 2x2 -Primary Dressing Covered/Secured with Dry Gauze, Secured with Tape -Aquacel AG 2x2 1 Pain Scale: 0-10 Numeric Is Patient Pain Free? Yes WC - Visit Discharge Discharge Condition Stable Ambulatory Status Walker Transportation Private Auto Assessment/Plan Assessment/Plan (1) Diabetic ulcer of left buttock: CODE(S): E11.622 - Type 2 diabetes mellitus with other skin ulcer; L98.419 - Non-pressure chronic ulcer of buttock with unspecified severity (2) 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: CODE(S): T87.89 - Other complications of amputation stump; M79.604 - Pain in right leg (3) Tobacco abuse: CODE(S): Z72.0 - Tobacco use (4) Hemoglobin A1C greater than 9%, indicating poor diabetic control: CODE(S): R73.09 - Other abnormal glucose (5) History of osteomyelitis: CODE(S): Z87.39 - Personal history of other diseases of the musculoskeletal system and connective tissue PLAN: She was approved for Epifix and Epicord. 4 applications of Epicord and 4 applications of Epifix (8 applications total of advanced wound product). Wound care - Right BKA stump ulcer remains healed today. She may cover it with gauze to protect the area until the fragile epithelial tissue toughens. JOSE D wrap or stump front sight attacher for compression. Left medial buttock ulcer - Aquacel-Ag covered with silicone boarder dressing (such as excel SAH) daily and as needed. HgbA1c 9.3 on 10/25/21. Her HbgA1c needs to be below 8 to have a bone graft in the future. Encouraged increased protein intake and Vitamin C intake. Encouraged patient to stop smoking as it may have deleterious effects on wound healing. She will follow up in 2 weeks.
== END 2022-03-07 23:59 | disposition home or self-care (01) ==
LOC: WC 10:53
PROVIDERS: Family Provider Internal Medicine; PCP Internal Medicine; Referring Provider Surgery; Visit Provider Nurse Practitioner Family
DX: E11.622 Type 2 diabetes mellitus with other skin ulcer (principal); T87.43 Infection of amputation stump, right lower extremity; T87.89 Other complications of amputation stump; L98.492 Non-pressure chronic ulcer of skin of other sites with fat layer exposed; Z72.0 Tobacco use; M79.604 Pain in right leg; Y83.5 Amputation of limb(s) as the cause of abnormal reaction of the patient, or of later complication, without mention of misadventure at the time of the procedure; R73.09 Other abnormal glucose
CPT/HCPCS: 11042

== ENCOUNTER 2022-03-25 14:04 | Outpatient (RCR) | payer MEDICARE, MEDICAID, SELFPAY ==
[2022-03-08 00:25] VITALS: BP 125/78; PULSE 107; RESP 20; TEMP 36.4; O2SAT 99; BMI 36.5
[2022-03-25 14:08] VITALS: BP 125/69; PULSE 90; RESP 18; TEMP 36.2; BMI 36.5
--- NOTE | 2022-03-25 14:36 | PCM.WC.PN ---
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 History of Wound: Surgery 01/02/21 - Surgical preparation anterior aspect right BKA stump with incision and drainage and excisional debridement nonhealing painful infected diabetic ulcer (12 cm2) and partial ostectomy tibia for osteomyelitis. Operative tissue cultures positive for Corynebacterium amycolatum, Anaerobic cocci and Fingoldia magna. Operative bone cultures positive for Anaerobic cocci and Fingoldia magna. Pathology of the bone was negative for acute osteomyelitis. She was treated with IV Vanc that was started 01/02/21 and Flagyl. PICC line pulled 01/15/21. Wound care - She was approved for Epicord and Epifix. She has had 4 applications of Epicord and 4 applications of Epifix (8 applications of advanced wound product). The right BKA stump ulcer remains healed. Continue to massage lotion 1-2 times daily to help soften the scarring. For her left medial buttock will place Tresa covered with gauze daily. Surgery 12/07/19 - 1. Surgical preparation right BKA stump with incision and drainage and excisional debridement infected hematoma (19.25 cm2). 2. Partial ostectomy tibia for osteomyelitis. Wound cultures obtained on 09/11/20 and were positive for Entercoccus faecalis and Anaerobic cocci. She has been taking Augmentin and a probiotic. Operative bone culture and tissue culture from 12/07/19 showed Staphylococcus aureus. She was treated with Doxycycline. Pathology was negative for osteomyelitis. Pathology from 06/26 was positive for osteomyelitis. Her HgA1c from 12/07/19 was 10.5. Prealbumin from 12/07/19 was 14. Another wound culture was obtained on 02/21/20. It showed Enterococcus faecalis. She was started on Augmentin and has finished them. She had another wound culture on 07/11/20. It showed Anaerococcus prevoti and Anaerobic cocci. She was placed on Augmentin and has finished them. An MRI was done on 10/13/20. It showed subtle area of abnormal signal within the distal tibial stump anteriorly with overlying soft tissue thinning and edema. This may represent early osteomyelitis. I do not see a definite abscess. It may be of benefit to repeat the study with intravenous contrast for further evaluation if clinically indicated. She denies fever today and states her appetite is ok. Progress of Wound: Left buttock ulcer is stable. It is in the center of healed scar tissue. Objective Data Objective Data Vital Signs: Vital Signs Temp Pulse Resp BP Pulse Ox 97.1 F L 90 18 125/69 H 99 03/25/22 14:08 03/25/22 14:08 03/25/22 14:08 03/25/22 14:08 03/08/22 00:25 Weight: 203 lb Body Mass Index (BMI) 36.5 Charges/Coding Procedures Integumentary 111xxx-113xx: [id number] Annalisa subq tissue 20 sq cm/< Physical Exam Const alert and oriented x3 General Appearance: cooperative HEENT normocephalic Resp normal respiratory effort Cardio regular rate Extremity normal capillary refill Skin Wound Narrative: Right BKA stump ulcer remains healed. Left medial buttock ulcer is stable, the base of the ulcer is beefy pink. It continues to be surrounded by scar tissue. Neuro Sensorium / Orientation: awake and alert Psych affect normal Appearance: well kempt Debridement Note Debridement Note Wound debrided: medial buttock ulcer Laterality: Left Type of Debridement: Excisional debridement Anesthesia Used: 5% Lidocaine Gel Depth: Down to and including healthy tissue and in the subcutaneous layer Percentage of wound debrided: 100 Instrument Used: 3mm curette Tissue Removed: Non viable tissue and slough, especially around the edges of the ulcer Severity: Fat Layer Exposed Amount of bleeding with debridement: Mild Bleeding Controlled with: Pressure Patient tolerated procedure: Patient tolerated procedure well Post-Debridement Measurements and Additional Note: Post-Debridement Measurements/Treatment - Nurse 1 - General Ulcer Assessment Start: 03/25/22 14:08 Freq: Status: Active Protocol: SOL.HEMAL Activity Type Activity Date Activity User E-sign Co-sign Detail Recorded Client Recorded Date Recorded By Document 03/25/22 14:08 DL [id number] 03/25/22 14:13 DL 03/25/22 14:08 - Today's Visit Information Type of service 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 ) Arrival Mode Ambulatory, Walker Transfer Assistance None Patient Identification Verified (Name & Yes ) Patient Requires Transmission-Based No Precautions Finger Stick Blood Sugar(mg/dl) (if 160 indicated): Blood Sugar Stated by Patient Height and Weight Body Mass Index (BMI) 36.5 BMI Classification Obese Vital Signs Temperature (97.8 F-99.1 F) 97.1 F L Temperature Source Temporal Pulse Rate (60-100) 90 Pulse Location Monitor Respiratory Rate (12-18) 18 Respiratory rate source Observation Blood Pressure (90/60-120/80) 125/69 H Blood Pressure Mean (mm Hg) 87 Source Monitor History Since Last Visit- (Skip if this is Patient's initial visit) Have you changed medications since your No last visit? Any new allergies or adverse reactions No Had a fall/change in ADL's that may No increase risk of falls Signs or symptoms of abuse and/or No neglect since last visit Have you been in the hospital since your No last visit? Has dressing in place as prescribed Yes Has compression in place as prescribed N/A Has offloadiing in place as prescribed Yes Experienced any changes in pain level or No management Pain Scale: 0-10 Numeric Is Patient Pain Free? Yes WC - Nurse 1 - General Ulcer Measurement Start: 03/25/22 14:08 Freq: Status: Active Protocol: Activity Type Activity Date Activity User E-sign Co-sign Detail Recorded Client Recorded Date Recorded By Document 03/25/22 14:08 DL [id number] 03/25/22 14:13 DL 03/25/22 14:08 Wound Center Nurse 1 10-left medial buttucks -Current Size (cm) - Length 1 -Current Size (cm) - Width 0.6 -Current Size (cm) - Depth 0.3 -Total Square Cm 0.6 -Photo Taken No -Tunneling No -Undermining/Tunneling No -Circular Undermining No -Change in Wound Grade/Stage No -Exudate Amt Medium -Exudate Type Serosanguineous -Wound Margin Distinct, Outline Attached -Granulation Amt Large (67-100%) -Granulation Quality [place] -Slough/Fibrin Yes -Necrosis Amt Small (1-33%) -Necrotic Tissue Type Adherent Slough -Structure Exposed N/A -Texture (Love-wound Skin Appearance) Assessed, Scarring -Moisture (Love-wound Skin Appearance) No Abnormality, Assessed -Color (Love-wound Skin Appearance) No Abnormality, Assessed -Temperature (Love-wound Skin No Abnormality Appearance) (Pt Warm) -Tenderness on Palpation (Love-wound No Skin Appearance) -Ulcer Cleansing Rinsed/ Irrigated with Saline -Foul Odor after Cleansing No -Anesthetic Used 5% Lidocaine Gel WC - Nurse 2 - General Ulcer CM Notes Start: 03/25/22 14:08 Freq: Status: Active Protocol: Activity Type Activity Date Activity User E-sign Co-sign Detail Recorded Client Recorded Date Recorded By Document 03/25/22 14:28 SHAYNA [id number] 03/25/22 14:30 SHAYNA 03/25/22 14:28 Wound Center Nurse 2 -Time 14:28 -Correct Patient Yes -Correct Side, Site, Position Yes -Correct Procedure Yes -Procedure Performed Yes -Type of Procedure Debridement -Clinical Debridement Subcutaneous -Tissue Removed Subcutaneous -Post Debridement (cm) - Length 1.2 -Post Debridement (cm) - Width 0.9 -Post Debridement (cm) - Depth 0.4 -Total Square (Post) (cm) 1.08 -Area of Debridement (cm) - Length 1.2 -Area of Debridement (cm) - Width 0.9 -Total Square (Area) (cm) 1.08 -Tunneling No -Undermining/Tunneling No -Circular Undermining No -Wound/Ulcer Outcome Not Healed -Ulcer Cleansing Rinsed/ Irrigated with Saline -Foul Odor after Cleansing No -Bioengineered Tissue No -Bleeding Controlled with Pressure -Treatment Response Procedure Tolerated Well -Offloading No -Pressure Reduction Wheelchair cushion -Debridement - Subq, 1st 20sq cm Yes Pain Scale: 0-10 Numeric Is Patient Pain Free? 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 4 applications of Epicord and 4 applications of Epifix (8 applications total of advanced wound product) on the right BKA stump ulcer which remains healed. Wound care - Left medial buttock ulcer - Tresa covered with gauze daily and as needed after washing with soap and water and drying well. HgbA1c 9.3 on 10/25/21. Her HbgA1c needs to be below 8 to have a bone graft in the future. Encouraged increased protein intake and Vitamin C intake. Encouraged patient to stop smoking as it may have deleterious effects on wound healing. She will follow up in 2 weeks.
== END 2022-04-07 23:59 | disposition home or self-care (01) ==
LOC: WC 14:04
PROVIDERS: Family Provider Internal Medicine; PCP Internal Medicine; Referring Provider Surgery; Visit Provider Nurse Practitioner Family
DX: E11.622 Type 2 diabetes mellitus with other skin ulcer (principal); T87.89 Other complications of amputation stump; L98.492 Non-pressure chronic ulcer of skin of other sites with fat layer exposed; L90.5 Scar conditions and fibrosis of skin; Z72.0 Tobacco use; M79.604 Pain in right leg; Y83.5 Amputation of limb(s) as the cause of abnormal reaction of the patient, or of later complication, without mention of misadventure at the time of the procedure; R73.09 Other abnormal glucose
CPT/HCPCS: 11042

== ENCOUNTER 2022-04-22 13:48 | Outpatient (RCR) | payer MEDICARE, MEDICAID, SELFPAY ==
[2022-04-08 00:21] VITALS: BP 125/69; PULSE 90; RESP 18; TEMP 36.2; O2SAT 99; BMI 36.5
[2022-04-22 13:53] VITALS: BP 123/70; PULSE 97; RESP 20; TEMP 37.1; BMI 36.5
--- NOTE | 2022-04-22 14:58 | PN.PCM_ITS ---
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 History of Wound: Surgery 01/02/21 - Surgical preparation anterior aspect right BKA stump with incision and drainage and excisional debridement nonhealing painful infected diabetic ulcer (12 cm2) and partial ostectomy tibia for osteomyelitis. Operative tissue cultures positive for Corynebacterium amycolatum, Anaerobic cocci and Fingoldia magna. Operative bone cultures positive for Anaerobic cocci and Fingoldia magna. Pathology of the bone was negative for acute osteomyelitis. She was treated with IV Vanc that was started 01/02/21 and Flagyl. PICC line pulled 01/15/21. Wound care - She was approved for Epicord and Epifix. She has had 4 applications of Epicord and 4 applications of Epifix (8 applications of advanced wound product). The right BKA stump ulcer remains healed. Continue to massage lotion 1-2 times daily to help soften the scarring. For her left medial buttock will place Tresa covered with gauze daily to both the left medial perianal ulcer and new left inferior buttock ulcer. Surgery 12/07/19 - 1. Surgical preparation right BKA stump with incision and drainage and excisional debridement infected hematoma (19.25 cm2). 2. Partial ostectomy tibia for osteomyelitis. Wound cultures obtained on 09/11/20 and were positive for Entercoccus faecalis and Anaerobic cocci. She has been taking Augmentin and a probiotic. Operative bone culture and tissue culture from 12/07/19 showed Staphylococcus aureus. She was treated with Doxycycline. Pathology was negative for osteomyelitis. Pathology from 06/26 was positive for osteomyelitis. Her HgA1c from 12/07/19 was 10.5. Prealbumin from 12/07/19 was 14. Another wound culture was obtained on 02/21/20. It showed Enterococcus faecalis. She was started on Augmentin and has finished them. She had another wound culture on 07/11/20. It showed Anaerococcus prevoti and Anaerobic cocci. She was placed on Augmentin and has finished them. An MRI was done on 10/13/20. It showed subtle area of abnormal signal within the distal tibial stump anteriorly with overlying soft tissue thinning and edema. This may represent early osteomyelitis. I do not see a definite abscess. It may be of benefit to repeat the study with intravenous contrast for further evaluation if clinically indicated. She denies fever today and states her appetite is ok. Progress of Wound: Has a new left inferior buttock ulcer and left medial buttock/perianal ulcer is stable. Objective Data Objective Data Vital Signs: Vital Signs Temp Pulse Resp BP Pulse Ox 98.7 F 97 20 H 123/70 H 99 04/22/22 13:53 04/22/22 13:53 04/22/22 13:53 04/22/22 13:53 04/08/22 00:21 Weight: 203 lb Body Mass Index (BMI) 36.5 Charges/Coding Procedures Integumentary 111xxx-113xx: [id number] Annalisa subq tissue 20 sq cm/< Physical Exam Const alert and oriented x3 General Appearance: cooperative HEENT normocephalic Resp normal respiratory effort Cardio regular rate Extremity normal capillary refill Skin Wound Narrative: Right BKA stump ulcer remains healed. Left medial buttock ulcer is stable, the base of the ulcer is beefy pink. It continues to be surrounded by scar tissue. Neuro Sensorium / Orientation: awake and alert Psych affect normal Appearance: well kempt Debridement Note Debridement Note Wound debrided: medial buttock ulcer Laterality: Left Type of Debridement: Excisional debridement Anesthesia Used: 5% Lidocaine Gel Depth: Down to and including healthy tissue and in the subcutaneous layer Percentage of wound debrided: 100 Instrument Used: 3mm curette Tissue Removed: Non viable tissue and slough, especially around the edges of the ulcer Severity: Fat Layer Exposed Amount of bleeding with debridement: Mild Bleeding Controlled with: Pressure Patient tolerated procedure: Patient tolerated procedure well Post-Debridement Measurements and Additional Note: Post-Debridement Measurements/Treatment - Nurse 1 - General Ulcer Assessment Start: 04/22/22 13:53 Freq: Status: Active Protocol: SOL.HEMAL Activity Type Activity Date Activity User E-sign Co-sign Detail Recorded Client Recorded Date Recorded By Document 04/22/22 13:53 MARLON [id number] 04/22/22 14:03 DL 04/22/22 13:53 - Today's Visit Information Type of service 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 ) Arrival Mode Ambulatory, Walker Transfer Assistance None Patient Identification Verified (Name & Yes ) Patient Requires Transmission-Based No Precautions Finger Stick Blood Sugar(mg/dl) (if 132 indicated): Blood Sugar Stated by Patient Height and Weight Body Mass Index (BMI) 36.5 BMI Classification Obese Vital Signs Temperature (97.8 F-99.1 F) 98.7 F Temperature Source Temporal Pulse Rate (60-100) 97 Pulse Location Monitor Respiratory Rate (12-18) 20 H Respiratory rate source Observation Blood Pressure (90/60-120/80) 123/70 H Blood Pressure Mean (mm Hg) 87 Source Monitor History Since Last Visit- (Skip if this is Patient's initial visit) Have you changed medications since your No last visit? Any new allergies or adverse reactions No Had a fall/change in ADL's that may No increase risk of falls Signs or symptoms of abuse and/or No neglect since last visit Have you been in the hospital since your No last visit? Has dressing in place as prescribed No Has compression in place as prescribed N/A Has offloadiing in place as prescribed Yes Experienced any changes in pain level or No management Pain Scale: 0-10 Numeric Is Patient Pain Free? Yes WC - Nurse 1 - General Ulcer Measurement Start: 04/22/22 13:53 Freq: Status: Active Protocol: Activity Type Activity Date Activity User E-sign Co-sign Detail Recorded Client Recorded Date Recorded By Document 04/22/22 13:53 DL [id number] 04/22/22 14:03 DL 04/22/22 13:53 Wound Center Nurse 1 #11 L Buttocks Inf -Current Size (cm) - Length 0.5 -Current Size (cm) - Width 0.4 -Current Size (cm) - Depth 0.1 -Total Square Cm 0.20 -Photo Taken Yes -Granulation Amt Large (67-100%) -Granulation Quality [place] -Necrosis Amt None Present (0 %) -Structure Exposed N/A -Texture (Love-wound Skin Appearance) Scarring -Moisture (Love-wound Skin Appearance) No Abnormality -Color (Love-wound Skin Appearance) No Abnormality -Temperature (Love-wound Skin No Abnormality Appearance) (Pt Warm) -Tenderness on Palpation (Love-wound No Skin Appearance) -Ulcer Cleansing Rinsed/ Irrigated with Saline -Foul Odor after Cleansing No -Anesthetic Used 5% Lidocaine Gel 10-left medial buttucks -Current Size (cm) - Length 0.5 -Current Size (cm) - Width 0.3 -Current Size (cm) - Depth 0.2 -Total Square Cm 0.15 -Photo Taken Yes -Exudate Amt None Present -Wound Margin Thickened -Granulation Amt Small (1-33%) -Granulation Quality [place] -Necrosis Amt None Present (0 %) -Structure Exposed N/A -Texture (Love-wound Skin Appearance) Scarring -Moisture (Love-wound Skin Appearance) No Abnormality -Color (Love-wound Skin Appearance) No Abnormality -Temperature (Love-wound Skin No Abnormality Appearance) (Pt Warm) -Tenderness on Palpation (Love-wound No Skin Appearance) -Ulcer Cleansing Rinsed/ Irrigated with Saline -Foul Odor after Cleansing No -Anesthetic Used 5% Lidocaine Gel WC - Nurse 2 - General Ulcer CM Notes Start: 04/22/22 13:53 Freq: Status: Active Protocol: Activity Type Activity Date Activity User E-sign Co-sign Detail Recorded Client Recorded Date Recorded By Document 04/22/22 14:37 SHAYNA [id number] 04/22/22 14:39 SHAYNA 04/22/22 14:37 Wound Center Nurse 2 #11 L Buttocks Inf -Time 14:38 -Correct Patient Yes -Correct Side, Site, Position Yes -Correct Procedure Yes -Procedure Performed Yes -Type of Procedure Debridement -Clinical Debridement Subcutaneous -Tissue Removed Subcutaneous -Post Debridement (cm) - Length 0.6 -Post Debridement (cm) - Width 0.5 -Post Debridement (cm) - Depth 0.1 -Total Square (Post) (cm) 0.30 -Area of Debridement (cm) - Length 0.6 -Area of Debridement (cm) - Width 0.5 -Total Square (Area) (cm) 0.30 -Tunneling No -Undermining/Tunneling No -Circular Undermining No -Wound/Ulcer Outcome Not Healed -Ulcer Cleansing Rinsed/ Irrigated with Saline -Foul Odor after Cleansing No -Bioengineered Tissue No -Bleeding Controlled with Pressure -Treatment Response Procedure Tolerated Well -Offloading No -Debridement - Subq, 1st 20sq cm No 10-left medial buttucks -Time 14:39 -Correct Patient Yes -Correct Side, Site, Position Yes -Correct Procedure Yes -Procedure Performed Yes -Type of Procedure Debridement -Clinical Debridement Subcutaneous -Tissue Removed Subcutaneous -Post Debridement (cm) - Length 0.4 -Post Debridement (cm) - Width 0.7 -Post Debridement (cm) - Depth 0.2 -Total Square (Post) (cm) 0.28 -Area of Debridement (cm) - Length 0.4 -Area of Debridement (cm) - Width 0.7 -Total Square (Area) (cm) 0.28 -Tunneling No -Undermining/Tunneling No -Circular Undermining No -Wound/Ulcer Outcome Not Healed -Ulcer Cleansing Rinsed/ Irrigated with Saline -Foul Odor after Cleansing No -Bioengineered Tissue No -Bleeding Controlled with Pressure -Treatment Response Procedure Tolerated Well -Offloading No -Pressure Reduction Wheelchair cushion -Debridement - Subq, 1st 20sq cm Yes Pain Scale: 0-10 Numeric Is Patient Pain Free? Yes - Nurse 3 - General Ulcer D/C NN Start: 04/22/22 13:53 Freq: Status: Active Protocol: Activity Type Activity Date Activity User E-sign Co-sign Detail Recorded Client Recorded Date Recorded By Document 04/22/22 14:45 [id number] 04/22/22 14:46 04/22/22 14:45 Wound Care Nurse 3 #11 L Buttocks Inf -Ulcer Cleansing Rinsed/ Irrigated with Saline -Foul Odor after Cleansing No -Primary Dressing Applied Promogran Tresa Matter -Primary Dressing Covered/Secured with Dry Gauze, Secured with Tape -Promogran Tresa Matter 0 10-left medial buttucks -Ulcer Cleansing Rinsed/ Irrigated with Saline -Foul Odor after Cleansing No -Primary Dressing Applied Promogran Tresa Matter -Primary Dressing Covered/Secured with Dry Gauze, Secured with Tape -Promogran Tresa Matter 1 Pain Scale: 0-10 Numeric Is Patient Pain Free? Yes - Visit Discharge Discharge Condition Stable Ambulatory Status Walker Transportation Private Auto Medication Reconcilliation completed & Yes provided to patient/care provider Clinical Summary of Care Provided Yes Additional Wound Wound debrided: inferior buttock ulcer Laterality: Left Type of Debridement: Excisional debridement Anesthesia Used: 5% Lidocaine Gel Depth: Down to and including healthy tissue and in the subcutaneous layer Percentage of wound debrided: 100 Instrument Used: 3mm curette Tissue Removed: Devitalized tissue and slough Severity: Fat Layer Exposed Amount of bleeding with debridement: Mild Bleeding Controlled with: Pressure Patient tolerated procedure: Patient tolerated procedure well Assessment/Plan Assessment/Plan (1) Diabetic ulcer of left buttock: CODE(S): E11.622 - Type 2 diabetes mellitus with other skin ulcer; L98.419 - Non-pressure chronic ulcer of buttock with unspecified severity (2) 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 4 applications of Epicord and 4 applications of Epifix (8 applications total of advanced wound product) on the right BKA stump ulcer which remains healed. She has a new ulcer on her left inferior buttock Wound care - Left medial buttock/perianal and left inferior buttock ulcers - Tresa covered with gauze daily and as needed after washing with soap and water and drying well. HgbA1c 9.3 on 10/25/21. Her HbgA1c needs to be below 8 to have a bone graft in the future. Encouraged increased protein intake and Vitamin C intake. Encouraged patient to stop smoking as it may have deleterious effects on wound healing. She will follow up in 2 weeks.
== END 2022-05-08 23:59 | disposition home or self-care (01) ==
LOC: WC 13:48
PROVIDERS: Family Provider Internal Medicine; PCP Internal Medicine; Referring Provider Surgery; Visit Provider Nurse Practitioner Family
DX: E11.622 Type 2 diabetes mellitus with other skin ulcer (principal); T87.89 Other complications of amputation stump; L98.492 Non-pressure chronic ulcer of skin of other sites with fat layer exposed; M79.604 Pain in right leg; Z72.0 Tobacco use; Y83.5 Amputation of limb(s) as the cause of abnormal reaction of the patient, or of later complication, without mention of misadventure at the time of the procedure
CPT/HCPCS: 11042